=== PATIENT | female | born 1975 | race Caucasian/White ===

== ENCOUNTER 2016-03-27 18:06 | Emergency (ER) | payer SELFPAY ==
[~2016-03-27] VITALS: Ht 160 cm; Wt 70.0 kg
[~2016-03-27 18:06] MED LIST: GLIP5 PO; GLUCTAB PO; TRAM50 PO
[2016-03-27 18:08] VITALS: BP 168/91; PULSE 103; RESP 16; TEMP 98.4; O2SAT 99
--- NOTE | 2016-03-28 13:50 | EKG ---
Date Performed: 03/27/2016 Time Performed: 18:22:35 PTAGE: 40 years EKG: Sinus rhythm NORMAL ECG Compared to prior tracing no significant change PREVIOUS TRACING : 12/19/2015 14.56 DOCTOR: Amina Williamson Interpretating Date/Time 03/28/2016 13:47:40
== END 2016-03-27 18:50 | disposition left against medical advice (07) ==
LOC: NED 18:06
DX: R50.9 Fever, unspecified (principal)
CPT/HCPCS: 93005; 99281

== ENCOUNTER 2016-07-02 18:00 | Inpatient (IN) | payer MEDICAID, OTHER ==
[~2016-07-02] VITALS: Ht 160 cm; Wt 77.4 kg
[2016-07-02 18:02] VITALS: BP 149/77; PULSE 108; RESP 20; TEMP 98.8; O2SAT 99
[2016-07-02] MEDS ORDERED: GLIP5TAB8 PO (18:35)
[2016-07-02] MEDS ORDERED: METF500T PO (18:35)
--- NOTE | 2016-07-02 18:40 | PD ---
HPI Chief Complaint: GI Complaint Time Seen by Provider: 18:40 Travel History International Travel<30 days: No Contact w/Intl Traveler<30days: No Traveled to known affect area: No PFSH Past Medical History Diabetes: Yes Patient Takes Glucophage: No (pt states does not take this med since march) Diminished Hearing: No Tetanus Vaccination: > 5 Years Influenza Vaccination: No ?: Not Past Surgical History Section: Yes (x 3) Cholecystectomy: Yes Social History Alcohol Use: Yes (beers) Tobacco Use: No Substance Use: No Allergies-Medications (Allergen,Severity, Reaction): Coded Allergies: No Known Allergies (Unverified , 07/02/16) Reported Meds & Prescriptions Reported Meds & Active Scripts Active Reported Metformin (Metformin HCl) 500 Mg Tab 500 Mg PO BIDPC With meals Glipizide 5 Mg Tab 5 Mg PO DAILY Take 30 minutes before a meal Data Data Last Documented VS Vital Signs Date Time Temp Pulse Resp B/P Pulse Ox O2 Delivery O2 Flow Rate FiO2 07/02/16 18:35 17 07/02/16 18:02 98.8 108 149/77 99 Room Air Orders Complete Blood Count With Diff (07/02/16 19:16) Comprehensive Metabolic Panel (07/02/16 19:16) Bilirubin Components (07/02/16 19:16) ^ Insert Iv (07/02/16 19:16) Prothrombin Time / Inr (Pt) (07/02/16 19:16) Act Partial Throm Time (Ptt) (07/02/16 19:16) Urinalysis - C+S If Indicated (07/02/16 19:16) Tylenol (Acetaminophen) (07/02/16 19:16) Us Abdomen Liver (07/02/16 ) Morphine Inj (Morphine Inj) (07/02/16 19:30) Ondansetron Inj (Zofran Inj) (07/02/16 19:30) Katie Griffith July 02, 2016 18:40
--- NOTE | 2016-07-02 19:22 | PD ---
HPI Chief Complaint: GI Complaint Time Seen by Provider: 19:03 Travel History International Travel<30 days: No Contact w/Intl Traveler<30days: No Traveled to known affect area: No History of Present Illness HPI This is a 41 year old female who presents to the emergency department with 6 months of fatigue, weakness, nausea, constant, moderate severity, associated with repeated nose bleeds, easy bleeding and bruising, and dark urine. She was seen once in the emergency department in November and it was thought that she has liver disease, but she never followed up because she doesn't have insurance. Her says at one point she was told she may have ITP. She presents to the emergency department today because her is getting more worried about her. She is becoming more weak and is very jaundiced. 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 She does say that for 2 years several years ago she was a very heavy drinker and drank multiple shots of vodka per day. Now she says she drinks occasionally but hasn't drank in 2 weeks. She denies any recent travel out of the country. PFSH Past Medical History Diabetes: Yes Patient Takes Glucophage: No (pt states does not take this med since march) Diminished Hearing: No Medical other: Yes (ITP/ DM ) Tetanus Vaccination: > 5 Years Influenza Vaccination: No ?: Not Past Surgical History Section: Yes (x 3) Cholecystectomy: Yes Social History Alcohol Use: Yes (beers) Tobacco Use: No Substance Use: No Allergies-Medications (Allergen,Severity, Reaction): Coded Allergies: No Known Allergies (Unverified , 07/02/16) Reported Meds & Prescriptions Reported Meds & Active Scripts Active Reported Metformin (Metformin HCl) 500 Mg Tab 500 Mg PO BIDPC With meals Glipizide 5 Mg Tab 5 Mg PO DAILY Take 30 minutes before a meal Review of Systems Except as stated in HPI: all other systems reviewed are Neg Physical Exam Narrative GENERAL: Chronically ill-appearing. SKIN: Spider telangiectasias over the upper chest, back and face, ecchymoses over the bilateral arms and lower extremities at different stages of healing, jaundice HEAD: Atraumatic. Normocephalic. EYES: Pupils equal and round. No injection or drainage. Scleral icterus ENT: Moist mucous membranes NECK: Trachea midline. CARDIOVASCULAR: Regular rate and rhythm. 3/6 systolic murmur appreciated over the left sternal border. RESPIRATORY: Clear to auscultation. Breath sounds equal bilaterally. GASTROINTESTINAL: Liver is palpable 3 cm below the costal margin. MUSCULOSKELETAL: No obvious deformities. NEUROLOGICAL: Awake and alert. No obvious cranial nerve deficits. Moving all extremities. PSYCHIATRIC: Appropriate mood and affect; insight and judgment normal. Data Data Last Documented VS Vital Signs Date Time Temp Pulse Resp B/P Pulse Ox O2 Delivery O2 Flow Rate FiO2 07/02/16 20:34 16 07/02/16 19:31 100 127/71 99 Room Air 07/02/16 18:02 98.8 Orders Complete Blood Count With Diff (07/02/16 19:16) Comprehensive Metabolic Panel (07/02/16 19:16) Bilirubin Components (07/02/16 19:16) ^ Insert Iv (07/02/16 19:16) Prothrombin Time / Inr (Pt) (07/02/16 19:16) Act Partial Throm Time (Ptt) (07/02/16 19:16) Urinalysis - C+S If Indicated (07/02/16 19:16) Tylenol (Acetaminophen) (07/02/16 19:16) Us Abdomen Liver (07/02/16 ) Morphine Inj (Morphine Inj) (07/02/16 19:30) Ondansetron Inj (Zofran Inj) (07/02/16 19:30) Urine Culture (07/02/16 18:40) Ceftriaxone Inj (Rocephin Inj) (07/02/16 20:15) Admit Order (Ed Use Only) (07/02/16 22:23) Labs Laboratory Tests Test 07/02/16 18:40 White Blood Count 5.3 TH/MM3 Red Blood Count 2.70 MIL/MM3 Hemoglobin 8.6 GM/DL Hematocrit 25.9 % Mean Corpuscular Volume 96.2 FL Mean Corpuscular Hemoglobin 32.0 PG Mean Corpuscular Hemoglobin 33.3 % Concent Red Cell Distribution Width 22.3 % Platelet Count 42 TH/MM3 Mean Platelet Volume 8.1 FL Neutrophils (%) (Auto) 76.9 % Lymphocytes (%) (Auto) 15.2 % Monocytes (%) (Auto) 5.7 % Eosinophils (%) (Auto) 1.6 % Basophils (%) (Auto) 0.6 % Neutrophils # (Auto) 4.1 TH/MM3 Lymphocytes # (Auto) 0.8 TH/MM3 Monocytes # (Auto) 0.3 TH/MM3 Eosinophils # (Auto) 0.1 TH/MM3 Basophils # (Auto) 0.0 TH/MM3 CBC Comment AUTO DIFF Differential Comment AUTO DIFF CONFIRMED Platelet Estimate LOW Platelet Morphology Comment NORMAL Target Cells 1+ Prothrombin Time 25.3 SEC Prothromb Time International 2.2 RATIO Ratio Activated Partial 36.5 SEC Thromboplast Time Urine Color DARK-BROWN Urine Turbidity HAZY Urine pH 7.0 Urine Specific [place] 1.022 Urine Protein 30 mg/dL Urine Glucose (UA) NEG mg/dL Urine Ketones NEG mg/dL Urine Occult Blood NEG Urine Nitrite POS Urine Bilirubin LARGE Urine Urobilinogen GREATER THAN 12.0 MG/DL Urine Leukocyte Esterase MOD Urine RBC 1 /hpf Urine WBC 28 /hpf Urine WBC Clumps FEW Urine Squamous Epithelial 1 /hpf Cells Urine Bacteria FEW /hpf Urine Mucus MOD /lpf Microscopic Urinalysis Comment CULTURE INDICATED Sodium Level 138 MEQ/L Potassium Level 3.2 MEQ/L Chloride Level 100 MEQ/L Carbon Dioxide Level 26.8 MEQ/L Anion Gap 11 MEQ/L Blood Urea Nitrogen 2 MG/DL Creatinine 0.76 MG/DL Estimat Glomerular Filtration 85 ML/MIN Rate Random Glucose 123 MG/DL Calcium Level 8.0 MG/DL Total Bilirubin 11.2 MG/DL Direct Bilirubin 8.0 MG/DL Indirect Bilirubin 3.2 MG/DL Aspartate Amino Transf 191 U/L (AST/SGOT) Alanine Aminotransferase 28 U/L (ALT/SGPT) Alkaline Phosphatase 158 U/L Total Protein 7.4 GM/DL Albumin 2.6 GM/DL Acetaminophen Level LESS THAN 2.0 MCG/ML [facility] Medical Decision Making Medical Screen Exam Complete: Yes Emergency Medical Condition: Yes Interpretation(s) Afebrile, tachycardic, hypertensive Anemic Thrombocytopenia Total bilirubin is 11 increased from 2.8 in November Direct bilirubin is elevated INR is 2.2 elevated from 1.4 in November ultrasound: Liver is enlarged to 20 cm suspected hepatocellular disease. Splenomegaly. Differential Diagnosis alcoholic cirrhosis, viral hepatitis, malignancy, toxic hepatitis Narrative Course This is a 41-year-old female who presents to the emergency department with worsening jaundice, weakness, and vomiting. She does have a remote history of heavy alcohol use. She was placed on a monitor and an IV was established. Labs indicate worsening jaundice with a total bilirubin of 11 increased from 2 in November. Her INR is also worsening. We don't have a definitive etiology of the patient's liver failure. I spoke to Dr. Packer or and we discussed outpatient versus inpatient management. The patient has very limited resources and given her age it is reasonable to evaluate her in the hospital. She'll be placed in observation for GI evaluation. Ultrasound of the liver demonstrates likely hepatocellular disease. Physician Communication Physician Communication Discussed with Dr. Packer and Dr. Peoples Diagnosis Primary Impression: Liver failure Qualified Code: K72.10 - Chronic liver failure without hepatic coma Admitting Information Admitting Physician Requests: Observation Charley Perez MD July 02, 2016 19:22
[2016-07-02] MEDS ORDERED: ONDANSETRON HCL 4 MG/2 ML VIAL IV PUSH ONE (19:30)
[2016-07-02] MEDS ORDERED: MORPHINE SULFATE 4 MG/ML INJ IV PUSH ONE ×2 (19:30→22:45)
[2016-07-02 19:31] VITALS: BP 127/71; PULSE 100; RESP 16; O2SAT 99
[2016-07-02 19:56] LABS: AUTOMATED NEUTROPHIL # 4.1 TH/MM3 (1.8-7.7); BASOPHIL % 0.6 % (0.0-2.0); EOSINOPHIL # 0.1 TH/MM3 (0-0.4); EOSINOPHIL % 1.6 % (0.0-4.0); HEMATOCRIT 25.9 % (35.0-46.0); LYMPH % 15.2 % (9.0-44.0); LYMPHOCYTE # 0.8 TH/MM3 (1.0-4.8); MEAN CELL VOLUME 96.2 FL (80.0-100.0); MEAN CORPUSCULAR HGB CONC 33.3 % (32.0-36.0); MONO % 5.7 % (0.0-8.0); NEUT % 76.9 % (16.0-70.0); PLATELET COUNT 42 TH/MM3 (150-450); RED CELL DISTRIBUTION WIDTH 22.3 % (11.6-17.2); WHITE BLOOD COUNT 5.3 TH/MM3 (4.0-11.0)
[2016-07-02 19:58] LABS: HEMO FLAGS AUTO DIFF
[2016-07-02 19:59] LABS: BACTERIA, URINE FEW /hpf; BLOOD, URINE NEG (NEG); COMMENT (UR) CULTURE INDICATED; CULTURE IF INDICATED CULTURE INDICATED; GLUCOSE,URINE NEG (NEG); KETONE, URINE NEG (NEG); MUCUS URINE MOD /lpf (OCC); SQUAMOUS EPITHELIAL CELL URINE 1 /hpf (0-5)
[2016-07-02 20:01] LABS: NITRITE,URINE POS (NEG); URINE COLOR DARK-BROWN (YELLW/STRAW)
[2016-07-02 20:07] LABS: APTT (PATIENT) 36.5 SEC (24.3-30.1); INTERNATIONAL NORMALIZED RATIO 2.2 RATIO; PROTHROMBIN TIME - PATIENT 25.3 SEC (9.8-11.6)
[2016-07-02] MEDS ORDERED: cefTRIAXone INJ 1,000 MG in SODIUM CHLORIDE 0.9% INJ 100 ML IV ONE (20:15)
[2016-07-02 20:17] LABS: ANION GAP 11 MEQ/L (5-15); AST (GOT) 191 U/L (15-37); BICARBONATE 26.8 MEQ/L (21.0-32.0); BLOOD UREA NITROGEN 2 MG/DL (7-18); CHLORIDE 100 MEQ/L (98-107); GLOMERULAR FILTRATION RATE 85 ML/MIN (>89); POTASSIUM 3.2 MEQ/L (3.5-5.1); SODIUM (NA) 138 MEQ/L (136-145)
[2016-07-02 20:20] LABS: ALKALINE PHOSPHATASE 158 U/L (45-117); ALT (GPT) 28 U/L (10-53); INDIRECT BILIRUBIN 3.2 MG/DL (0.0-0.8); TOTAL BILIRUBIN ADULT 11.2 MG/DL (0.2-1.0)
[2016-07-02 20:24] LABS: TARGET CELLS 1+ (NORMAL)
[2016-07-02 20:25] LABS: PLATELET ESTIMATE SMEAR LOW (NORMAL); PLATELET MORPHOLOGY NORMAL (NORMAL); SCAN/DIFF AUTO DIFF CONFIRMED
[2016-07-02 20:53] LABS: ACETAMINOPHEN LESS THAN 2.0 MCG/ML (10.0-30.0)
--- NOTE | 2016-07-02 21:56 | RADRPT ---
EXAM DATE/TIME: 07/02/2016 20:42 [facility] COMPARISON: No previous studies available for comparison. INDICATIONS : Jaundice. MEDICAL HISTORY : . Diabetes. Jaundice. Fatigue. Liver disease. Splenomegaly. SURGICAL HISTORY : Cholecystectomy. section. Appendectomy. Exploratory laparotomy. ENCOUNTER: Initial ACUITY: 2 months PAIN SCORE: 2/10 LOCATION: Abdomen. MEASUREMENTS: LIVER: 19.9 cm length COMMON DUCT: 5 mm RIGHT KIDNEY: 13.0 x 5.7 x 5.3 cm SPLEEN: 18.6 cm length FINDINGS: Liver is enlarged to about 20 cm heterogeneous echogenicity characteristic of hepatocellular disease. Previous cholecystectomy. No biliary ductal dilatation. Portal venous flow normal direction. 2.8 cm right renal cyst. Spleen enlarged at 18.6 cm. CONCLUSION: Liver enlarged to 20 cm with suspected hepatocellular disease. Splenomegaly to 18.6 cm. No free fluid . Cholecystectomy. Cliff Montez MD on July 02, 2016 at 21:51 Board Certified Radiologist. This report was verified electronically.
[2016-07-02 22:29] VITALS: BP 122/63; PULSE 100; RESP 16; TEMP 98.5; O2SAT 97
[2016-07-02] MEDS ORDERED: NALOXONE HCL 0.4 MG/ML AMP IV PRN (22:30)
[2016-07-03] VITALS (8 sets, daily range): BP systolic 110–128; BP diastolic 56–66; PULSE 98–110; RESP 15–19; TEMP 97–98.8; O2SAT 93–98
--- NOTE | 2016-07-03 00:14 | HHI.HP ---
[facility] No Primary Care Physician Admission Diagnosis liver failure Diagnoses: Travel History International Travel<30 Days: No Contact w/Intl Traveler <30 Da: No Traveled to Known Affected Are: No History of Present Illness History from patient, ER physician communication, and review of medical records. Patient reported that for the past 4 days, she has been vomiting. Stated about 2-3 times a day. Also reports of associated right upper quadrant abdominal pain. She stated she did not check for fever but felt hot and red all throughout. Reports of nausea. Denies any black color stool or red color stool. Denies blood in her urine. She reports her urine color is however quite different and has been having foul- smelling urine. She states that her who drives trucks was away for about 3 weeks and yesterday when he came back home and he noticed that she was extremely jaundiced. He finally decided to bring her to hospital because he was so worried that she would pass away at home. She states she has impaired vision secondary to diabetes and she herself did not really notice being jaundiced. She states other family members who were with her also did not mention much about it. She also reports of nosebleeds in the past few weeks. Reports of easy bruising all over her body. She states that her nausea and vomiting episodes with abdominal pain has been going on and off for the past several months ago. She states that in her previous admission she was told that she might have signs and symptoms of ITP because of easy bruising. She states she has had cholecystectomy then. gallbladder removed platelets were low then egd then- could not do then due to platelets spleen was enlarged Patient states that although she is diabetic, she is not on any prescribed medications currently. She states she was switching her insurance from [employer] insurance to here. She previously was on metformin and glipizide. Currently, she takes the following medications [id number]. Tylenol2 pills twice a day. She does not know the milligrams. no prescribed meds- was switching from [employer] insurance to here was on metformin and glipizide over the counter- tylenol- 2 pills twice a day 2 calcium pills - all natural pill from [employer] vitamin b12 - 2 water pills- over the counter, all natural antacid medicine - lansoprazole Review of Systems Except as stated in HPI: all other systems reviewed are Neg Past Family Social History Past Medical History dm kidney stones removed Past Surgical History 3 c sections exploratory sx - appendectomy cholecystectomy egd bile duct stent placed post cholecystectomy- but since removed Allergies: Coded Allergies: No Known Allergies (Unverified , 07/02/16) Family History dm, htn - all females mom with heart problems Social History used to drink hard liquor about 3-4 shots every day - stopped hard liquor few months ago on and off abotu 2-3 yrs for hard liquor now only beer once in a while no iv drugs no smoking Physical Exam Vital Signs Vital Signs Date Time Temp Pulse Resp B/P Pulse Ox O2 Delivery O2 Flow Rate FiO2 07/02/16 22:29 98.5 100 16 122/63 97 Room Air 07/02/16 20:34 16 07/02/16 19:31 100 16 127/71 99 Room Air 07/02/16 18:35 17 07/02/16 18:02 98.8 108 20 149/77 99 Room Air Physical Exam GENERAL: This is a well-nourished, well-developed patient, in no apparent distress. SKIN: Jaundiced. Multiple superficial ecchymoses HEAD: Atraumatic. Normocephalic. No temporal or scalp tenderness. EYES: Scleral icterus. No injection or drainage. ENT: Nose without bleeding, purulent drainage or septal hematoma.. Airway patent. NECK: Trachea midline. No JVD. Supple, nontender, no meningeal signs. CARDIOVASCULAR: Regular rate and rhythm without murmurs, gallops, or rubs. RESPIRATORY: Clear to auscultation. Breath sounds equal bilaterally. No wheezes , rales, or rhonchi. GASTROINTESTINAL: Abdomen soft, non-tender, nondistended.No guarding. Hepatomegalywith liver edge palpable MUSCULOSKELETAL: Extremities without clubbing, cyanosis, or edema. No calf tenderness NEUROLOGICAL: Awake and alert.Motor and sensory grossly within normal limits. Normal speech. Laboratory Laboratory Tests Test 07/02/16 18:40 White Blood Count 5.3 Red Blood Count 2.70 Hemoglobin 8.6 Hematocrit 25.9 Mean Corpuscular Volume 96.2 Mean Corpuscular Hemoglobin 32.0 Mean Corpuscular Hemoglobin 33.3 Concent Red Cell Distribution Width 22.3 Platelet Count 42 Mean Platelet Volume 8.1 Neutrophils (%) (Auto) 76.9 Lymphocytes (%) (Auto) 15.2 Monocytes (%) (Auto) 5.7 Eosinophils (%) (Auto) 1.6 Basophils (%) (Auto) 0.6 Neutrophils # (Auto) 4.1 Lymphocytes # (Auto) 0.8 Monocytes # (Auto) 0.3 Eosinophils # (Auto) 0.1 Basophils # (Auto) 0.0 CBC Comment AUTO DIFF Differential Comment AUTO DIFF CONFIRMED Platelet Estimate LOW Platelet Morphology Comment NORMAL Target Cells 1+ Prothrombin Time 25.3 Prothromb Time International 2.2 Ratio Activated Partial 36.5 Thromboplast Time Urine Color DARK-BROWN Urine Turbidity HAZY Urine pH 7.0 Urine Specific [place] 1.022 Urine Protein 30 Urine Glucose (UA) NEG Urine Ketones NEG Urine Occult Blood NEG Urine Nitrite POS Urine Bilirubin LARGE Urine Urobilinogen GREATER THAN 12.0 Urine Leukocyte Esterase MOD Urine RBC 1 Urine WBC 28 Urine WBC Clumps FEW Urine Squamous Epithelial 1 Cells Urine Bacteria FEW Urine Mucus MOD Microscopic Urinalysis Comment CULTURE INDICATED Sodium Level 138 Potassium Level 3.2 Chloride Level 100 Carbon Dioxide Level 26.8 Anion Gap 11 Blood Urea Nitrogen 2 Creatinine 0.76 Estimat Glomerular Filtration 85 Rate Random Glucose 123 Calcium Level 8.0 Total Bilirubin 11.2 Direct Bilirubin 8.0 Indirect Bilirubin 3.2 Aspartate Amino Transf 191 (AST/SGOT) Alanine Aminotransferase 28 (ALT/SGPT) Alkaline Phosphatase 158 Total Protein 7.4 Albumin 2.6 Acetaminophen Level LESS THAN 2.0 Date/Time Procedure Status Source Growth 07/02/16 18:40 Urine Culture Received Urine Clean Catch Pending Result Diagram: 07/02/16 1840 07/02/16 1840 Imaging Last 48 hours Impressions Liver Ultrasound 07/02/16 0000 Signed Impressions: Service Date/Time: Saturday, July 02, 2016 20:42 - CONCLUSION: Liver enlarged to 20 cm with suspected hepatocellular disease. Splenomegaly to 18.6 cm. No free fluid. Cholecystectomy. Cliff Montez MD Assessment and Plan Problem List: (1) Liver failure ICD Code: K72.90 Status: Acute Assessment and Plan Impression: Acute on chronic liver failure UTI INR of 2.2secondary to liver failure Thrombocytopenia Prior history of EtOH abuse Current history of [id number] supplements medications and Tylenol Plan: GI consult. Liver ultrasound was obtained. Personally reviewed. No evidence of CBD stone or obstructive pathology. We'll start patient on vitamin K for INR of 2.2 Patient received Rocephin in the ER for treatment of UTI. We'll follow urine culture results. For now, would continue Rocephin. DVT prophylaxiswith ambulation/SCD. Chemical prophylaxis is contraindicated since patient has INR 2.2 with acute liver failure. GI prophylaxis on pantoprazole. Discussed Condition With Patient, ER physician, patient's nurse Problem Qualifiers (1) Liver failure: Qualified Code: K72.10 - Chronic liver failure without hepatic coma Bailey Peoples MD July 03, 2016 00:14
[2016-07-03] MEDS ORDERED: MORPHINE SULFATE 4 MG/ML INJ IV PUSH PRN ×2 (01:45→08:00)
[2016-07-03 07:08] LABS: HEMATOCRIT 22.9 % (35.0-46.0); MEAN CELL VOLUME 97.6 FL (80.0-100.0); MEAN CORPUSCULAR HEMOGLOBIN 31.6 PG (27.0-34.0); MEAN CORPUSCULAR HGB CONC 32.4 % (32.0-36.0); PLATELET COUNT 33 TH/MM3 (150-450); RED BLOOD COUNT 2.35 MIL/MM3 (4.00-5.30); RED CELL DISTRIBUTION WIDTH 22.6 % (11.6-17.2); WHITE BLOOD COUNT 3.8 TH/MM3 (4.0-11.0)
[2016-07-03 07:20] LABS: HEMO FLAGS AUTO DIFF
[2016-07-03 07:26] LABS: ALT (GPT) 26 U/L (10-53); ANION GAP 10 MEQ/L (5-15); AST (GOT) 169 U/L (15-37); BICARBONATE 28.3 MEQ/L (21.0-32.0); BLOOD UREA NITROGEN 3 MG/DL (7-18); CHLORIDE 101 MEQ/L (98-107); GLOMERULAR FILTRATION RATE 95 ML/MIN (>89); POTASSIUM 3.4 MEQ/L (3.5-5.1); SODIUM (NA) 139 MEQ/L (136-145)
[2016-07-03 07:28] LABS: ALKALINE PHOSPHATASE 143 U/L (45-117); TOTAL BILIRUBIN ADULT 9.9 MG/DL (0.2-1.0)
[2016-07-03 07:57] LABS: BANDS 11 % (0-6); BASOPHILS 1 % (0-2); PLATELET ESTIMATE SMEAR LOW (NORMAL); PLATELET MORPHOLOGY NORMAL (NORMAL); POLYS (SEG NEUTROPHILS) 68 % (16-70); SCAN/DIFF FINAL DIFF MANUAL; WBC DIFF SAMPLE 100
[2016-07-03 07:58] LABS: TARGET CELLS 1+ (NORMAL)
[2016-07-03] MEDS: PANTOPRAZOLE SOD 40 MG DELAYED RELEASE TAB PO SCH (08:43)
[2016-07-03] MEDS: SODIUM CHLORIDE 0.9% FLUSH 10 ML FLUSH IV FLUSH SCH ×2 (08:43→21:11)
[2016-07-03] MEDS: PHYTONADIONE 5 MG TAB PO SCH (08:44)
[2016-07-03] MEDS: cefTRIAXone INJ 1,000 MG in SODIUM CHLORIDE 0.9% INJ 100 ML IV SCH ×2 (08:44→21:11)
[2016-07-03] MEDS: ONDANSETRON HCL 4 MG/2 ML VIAL IV PUSH PRN ×2 (09:30→18:18)
--- NOTE | 2016-07-03 12:12 | PD.CONS ---
HPI History of Present Illness This is a 41 year old female who came to the ER for evaluation of nausea, vomiting and jaundice. She reports that she has not been able to keep any food down for about a week. She has appetite and when she does eat, she will vomit a brownish or yellowish material, but no blood. She has RUQ that she describes as a constant throbbing pain that progresses to a sharp stabbing pain without radiation. She does not feel that this is related to food intake. She feels like her skin gets flushed when she has the pain, but that she has not had an actual fever. She does have a hx peptic ulcer disease (found with endoscopy) and takes Lansoprazole at home for this and is asymptomatic. She reports that she was told about a year and a half ago that she have has not had any issues with this. She has had diarrhea for the past 3-4 weeks, usually having 2 loose stools per day. She has not seen any blood in her stool. She reports that she did not notice that her skin was jaundiced, but her noticed this yesterday and this prompted her to come to the ER. 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 She was never told that she had liver disease. She reports that she used to drink heavily- 5-6 shots of Vodka per day. She reports that she cut back about 6 months ago, drinking 2-3 beers a week. She last had alcohol 1 beer 3 days ago. She denies any history of hepatitis. She has a hx of tatto from a parlor 17 years ago. She denies any new medications, herbal supplements, or new sexual partners. She does take a B12 supplement. She does take Tylenol 4 tablets twice a day for chronic back pain related to a herniated disc. Sometimes she will take Ibuprofen. (Ela Juarez) PFSH Past Medical History DM PUD Hx bile leak after cholecystectomy Kidney stones Low platelets Past Surgical History 3 C-sections Appendectomy Cholecystectomy EGD ERCP with stent placement and later removal for bile leak (Ela Juarez) Coded Allergies: No Known Allergies (Unverified , 07/02/16) Medications Allergies Coded Allergies Type Severity Reaction Last Updated Verified No Known Allergies 07/02/16 No Active Scripts Medications Dose Route/Sig Days Date Category Dose Instructions Metformin (Metformin HCl) 500 Mg Tab 500 Mg PO BIDPC 07/02/16 Reported With meals Glipizide 5 Mg Tab 5 Mg PO DAILY 07/02/16 Reported Take 30 minutes before a meal Family History Mom has heart disease No family hx of liver disease. Social History Used to drink heavily- 5-6 shots of Vodka per day. She reports that she cut back about 6 months ago, drinking 2-3 beers a week. No tobacco No illicit drug use. (Ela Juarez) GI Exam Vitals I&O Vital Signs Date Time Temp Pulse Resp B/P Pulse Ox O2 Delivery O2 Flow Rate FiO2 07/03/16 11:51 109 07/03/16 08:15 98.5 105 18 122/61 95 07/03/16 04:40 98.6 110 18 118/56 93 07/03/16 01:30 106 07/03/16 01:15 97.0 98 15 110/59 95 07/02/16 22:29 98.5 100 16 122/63 97 Room Air 07/02/16 20:34 16 07/02/16 19:31 100 16 127/71 99 Room Air 07/02/16 18:35 17 07/02/16 18:02 98.8 108 20 149/77 99 Room Air Imaging Last Impressions Liver Ultrasound 07/02/16 0000 Signed Impressions: Service Date/Time: Saturday, July 02, 2016 20:42 - CONCLUSION: Liver enlarged to 20 cm with suspected hepatocellular disease. Splenomegaly to 18.6 cm. No free fluid. Cholecystectomy. Cliff Montez MD Laboratory Test 07/02/16 07/03/16 18:40 06:36 White Blood Count 5.3 TH/MM3 3.8 TH/MM3 Red Blood Count 2.70 MIL/MM3 2.35 MIL/MM3 Hemoglobin 8.6 GM/DL 7.4 GM/DL Hematocrit 25.9 % 22.9 % Mean Corpuscular Volume 96.2 FL 97.6 FL Mean Corpuscular Hemoglobin 32.0 PG 31.6 PG Mean Corpuscular Hemoglobin 33.3 % 32.4 % Concent Red Cell Distribution Width 22.3 % 22.6 % Platelet Count 42 TH/MM3 33 TH/MM3 Mean Platelet Volume 8.1 FL 7.6 FL Neutrophils (%) (Auto) 76.9 % % Lymphocytes (%) (Auto) 15.2 % % Monocytes (%) (Auto) 5.7 % % Eosinophils (%) (Auto) 1.6 % % Basophils (%) (Auto) 0.6 % % Neutrophils # (Auto) 4.1 TH/MM3 TH/MM3 Lymphocytes # (Auto) 0.8 TH/MM3 TH/MM3 Monocytes # (Auto) 0.3 TH/MM3 TH/MM3 Eosinophils # (Auto) 0.1 TH/MM3 TH/MM3 Basophils # (Auto) 0.0 TH/MM3 TH/MM3 CBC Comment AUTO DIFF AUTO DIFF Differential Comment AUTO DIFF FINAL DIFF CONFIRMED MANUAL Platelet Estimate LOW LOW Platelet Morphology Comment NORMAL NORMAL Target Cells 1+ 1+ Prothrombin Time 25.3 SEC Prothromb Time International 2.2 RATIO Ratio Activated Partial 36.5 SEC Thromboplast Time Urine Color DARK-BROWN Urine Turbidity HAZY Urine pH 7.0 Urine Specific [place] 1.022 Urine Protein 30 mg/dL Urine Glucose (UA) NEG mg/dL Urine Ketones NEG mg/dL Urine Occult Blood NEG Urine Nitrite POS Urine Bilirubin LARGE Urine Urobilinogen GREATER THAN 12.0 MG/DL Urine Leukocyte Esterase MOD Urine RBC 1 /hpf Urine WBC 28 /hpf Urine WBC Clumps FEW Urine Squamous Epithelial 1 /hpf Cells Urine Bacteria FEW /hpf Urine Mucus MOD /lpf Microscopic Urinalysis Comment CULTURE INDICATED Sodium Level 138 MEQ/L 139 MEQ/L Potassium Level 3.2 MEQ/L 3.4 MEQ/L Chloride Level 100 MEQ/L 101 MEQ/L Carbon Dioxide Level 26.8 MEQ/L 28.3 MEQ/L Anion Gap 11 MEQ/L 10 MEQ/L Blood Urea Nitrogen 2 MG/DL 3 MG/DL Creatinine 0.76 MG/DL 0.69 MG/DL Estimat Glomerular Filtration 85 ML/MIN 95 ML/MIN Rate Random Glucose 123 MG/DL 137 MG/DL Calcium Level 8.0 MG/DL 7.8 MG/DL Total Bilirubin 11.2 MG/DL 9.9 MG/DL Direct Bilirubin 8.0 MG/DL Indirect Bilirubin 3.2 MG/DL Aspartate Amino Transf 191 U/L 169 U/L (AST/SGOT) Alanine Aminotransferase 28 U/L 26 U/L (ALT/SGPT) Alkaline Phosphatase 158 U/L 143 U/L Total Protein 7.4 GM/DL 6.4 GM/DL Albumin 2.6 GM/DL 2.2 GM/DL Acetaminophen Level LESS THAN 2.0 MCG/ML Differential Total Cells 100 Counted Neutrophils % (Manual) 68 % Band Neutrophils % 11 % Lymphocytes % 15 % Monocytes % 5 % Basophils % 1 % Neutrophils # (Manual) 3.0 TH/MM3 Date/Time Procedure Status Source Growth 07/02/16 18:40 Urine Culture Received Urine Clean Catch Pending Physical Examination HEENT: Normocephalic; atraumatic; no jaundice. CHEST: CTA CARDIAC: Regular rate and rhythm with no murmur gallop or rubs. ABDOMEN: Soft, nondistended, nontender; hepatosplenomegaly; bowel sounds are present in all four quadrants. EXTREMITIES: No clubbing, cyanosis, or edema. SKIN: Normal; no rash; no jaundice. EQUINE VET: No focal deficits; alert and oriented times three. (Ela Juarez) Assessment and Plan Plan ASSESSMENT: - Elevated LFTs, Jaundice, what appears to be consistent with alcoholic hepatitis on underlying liver cirrhosis. She denies any known hx of liver disease or hepatitis/cirrhosis. 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 Liver Ultrasound (07/02/16)----> Liver enlarged to 20 cm with suspected hepatocellular disease. Splenomegaly to 18.6 cm. No free fluid. Cholecystectomy. She reports that she was a heavy drinker, 5-6 shots of Vodka per day. She reports that she cut back about 6 months ago, drinking 2-3 beers a week. She reports that she last had one beer 3 days ago. She denies any known liver disease in herself or family. She has a hx of tatto from a parlor 17 years ago. She denies any new medications, herbal supplements, or new sexual partners. She does take a B12 supplement. Her labs and imaging are consistent with liver cirrhosis. MELD 20. DF 71.080. Looks like she has UTI so we will start Pentoxifylline instead of prednisone. - Nausea, vomiting, abdominal pain x 1 week. She has hx of PUD. No hematemesis. Last EGD was about a year and a half ago. US as above. Will need EGD during this hospitalization- timing to be determined - GERD. PPI. - Pancytopenia. WBC 3.8, HH 7.4/22.9, Plt 33. - Coagulopathy. INR 2.2. - UTI, Ceftriaxone. PLAN: - Clear liquids - AFP level - Hepatitis profile - VERÓNICA, ASMA, AMA - Ferritin, Iron saturation - Ceruloplasmin, Alpha 1 Antitrypsin - Protonix 40mg daily - Add Pentoxifylline - On Vit. K - Monitor CBC, PT/INR. - Ammonia level - Ceftriaxone for uti - Supportive care - Will need EGD during this hospitalization, timing to be determined - Pt seen and examined by Dr. Steel and myself and this note is written on her behalf (Ela Juarez) Physician Comments seen, examined agree with above (Jenn Steel MD) Ela Juarez July 03, 2016 12:12 Jenn Steel MD July 03, 2016 19:22
--- NOTE | 2016-07-03 13:12 | HHI.PR ---
Subjective Remarks Follow up for acute liver failure. The patient reports continued 8/10 throbbing with occasional sharp stabbing pains at the RUQ without radiation, temporarily relieved by IV Morphine. She also reports continued nausea, temporarily relieved by IV Zofran. She was only able to tolerate 1 cracker this morning then vomited shortly after. Denies any diarrhea, but has not had a BM in 2 days. Denies fevers/chills. She reports rare NSAID use, but does take Tylenol 4tabs twice a day for her back pain. She continues to drink 2-3 beers a week. Objective Vitals Vital Signs Date Time Temp Pulse Resp B/P Pulse Ox O2 Delivery O2 Flow Rate FiO2 07/03/16 12:17 98.8 103 19 122/66 96 07/03/16 11:51 109 07/03/16 08:15 98.5 105 18 122/61 95 07/03/16 04:40 98.6 110 18 118/56 93 07/03/16 01:30 106 07/03/16 01:15 97.0 98 15 110/59 95 07/02/16 22:29 98.5 100 16 122/63 97 Room Air 07/02/16 20:34 16 07/02/16 19:31 100 16 127/71 99 Room Air 07/02/16 18:35 17 07/02/16 18:02 98.8 108 20 149/77 99 Room Air Result Diagram: 07/03/16 0636 07/03/16 0636 Imaging Last Impressions Liver Ultrasound 07/02/16 0000 Signed Impressions: Service Date/Time: Saturday, July 02, 2016 20:42 - CONCLUSION: Liver enlarged to 20 cm with suspected hepatocellular disease. Splenomegaly to 18.6 cm. No free fluid. Cholecystectomy. Cliff Montez MD Objective Remarks GENERAL: Well-nourished, well-developed middle aged female patient in [employer]. SKIN: Warm and dry. No rash. HEENT: Normocephalic. Atraumatic. Pupils equal and round. +scleral icterus. Mucous membranes pink and moist. NECK: Supple. Trachea midline. CARDIOVASCULAR: Regular rate and rhythm. S1, S2 noted. No murmur appreciated. RESPIRATORY: No accessory muscle use. Clear to auscultation. Breath sounds equal bilaterally. GASTROINTESTINAL: Abdomen soft, nondistended, significant tenderness at RUQ with light palpation. Normoactive bowel sounds x4. MUSCULOSKELETAL: No obvious deformities. Extremities without clubbing, cyanosis , or edema. NEUROLOGICAL: Awake and alert. No obvious cranial nerve deficits. Motor grossly within normal limits. Normal speech. PSYCHIATRIC: Appropriate mood and affect; insight and judgment normal. Medications and IVs Current Medications Medications (Trade) Dose Ordered Sig/Ric Route Start Time Stop Time Status Last Admin (NS Flush) 2 ml UNSCH PRN IV FLUSH 07/02/16 22:30 (NS Flush) 2 ml BID IV FLUSH 07/03/16 09:00 07/03/16 08:43 Naloxone HCl 0.4 mg 0.4 mg UNSCH PRN IV 07/02/16 22:30 (Rocephin Inj/NS Inj) 100 ml @ 200 mls/hr Q12H IV 07/03/16 08:00 07/03/16 08:44 (Mephyton) 5 mg DAILY PO 07/03/16 09:00 07/03/16 08:44 (Protonix) 40 mg DAILY@06 PO 07/03/16 07:04 07/03/16 08:43 (Morphine Inj) 2 mg Q4HR PRN IV PUSH 07/03/16 08:00 07/03/16 08:43 (Zofran Inj) 4 mg Q6HR PRN IV PUSH 07/03/16 09:15 07/03/16 09:30 (TRENtal SR) 400 mg Q8HR PO 07/03/16 14:00 A/P Problem List: (1) Liver failure ICD Code: K72.90 Status: Acute Assessment and Plan 41-year-old female with history of DM, PUD, nephrolithiasis, thrombocytopenia, prior alcohol abuse, presents with abdominal pain, nausea/vomiting, and jaundice. Acute on chronic liver failure: Elevated LFTs with T.bili 11.2, AST 191, ALT 28 , Alk Phos 158. Liver U/S 07/02 showed liver enlarged to 20cm with suspected hepatocellular disease; splenomegaly 18.6cm; no free fluid, s/p cholecystectomy ; No evidence of CBD stone or obstructive pathology. Consulted gastroenterology. Check AFP. GI initiated liver work up. Continue Protonix 40mg qd. Supportive treatment with antiemetics and pain control prn. Per GI, will also need EGD during this hospitalization. Consider inpatient admission, will discuss with case management. UTI: UA with mod leuks, +nitrites, WBCs. Continue IV Rocephin. Follow urine culture. Elevated INR: INR 2.2secondary to liver failure. Monitor. Normocytic Anemia: Hgb 8.6 --> 7.4. Suspect secondary to liver failure. Check iron studies, ferritin. Check stool Hemoccult. Monitor CBC. Thrombocytopenia: secondary to liver failure/alcohol abuse. Monitor. Avoid antiplatelets. Prior history of EtOH abuse: reported hx of heavy alcohol abuse, now down to 2- 3beers per week. DVT prophylaxis: with ambulation/SCD. Avoid chemical prophylaxis with liver failure, platelets 33K, and INR 2.2. GI prophylaxis: pantoprazole Attending Statement Patient seen and examined. Still having abdominal pain. Tender in RUQ. Liver workup per GI. Problem Qualifiers (1) Liver failure: Qualified Code: K72.10 - Chronic liver failure without hepatic coma Arlene Hooks PA-C July 03, 2016 13:12 Beto Chong MD July 03, 2016 14:07
[2016-07-03] MEDS: PENTOXIFYLLINE 400 MG CONTROLLED RELEASE TAB PO SCH ×2 (13:15→21:10)
[2016-07-03] MEDS: SODIUM CHLORIDE 0.9% FLUSH 10 ML FLUSH IV FLUSH PRN ×3 (13:16→18:18)
[2016-07-03] MEDS: METOCLOPRAMIDE HCL 10 MG/2 ML VIAL IV PUSH PRN (13:16)
[2016-07-03] MEDS: MORPHINE SULFATE 4 MG/ML INJ IV PUSH PRN ×3 (13:50→21:19)
[2016-07-03 14:49] LABS: TRANSFERRIN IRON PROFILE 137 MG/DL (200-360)
[2016-07-03 14:52] LABS: FERRITIN 45 NG/ML (8-252)
[2016-07-03] MEDS ORDERED: GLUCAGON 1 MG/ML VIAL OTHER PRN (18:30)
[2016-07-03] MEDS ORDERED: DEXTROSE 50% IN WATER 50 ML VIAL(D50) IV PUSH PRN (18:30)
[2016-07-03] MEDS: INSULIN ASPART SUPPLEMENTAL SCALE SQ SCH (20:42)
[2016-07-03 21:35] LABS: HEMATOCRIT 23.5 % (35.0-46.0)
[2016-07-03 21:37] LABS: REVIEW FLAG FINAL
[2016-07-04] VITALS (9 sets, daily range): BP systolic 107–135; BP diastolic 55–68; PULSE 91–106; RESP 18–20; TEMP 98.4–99; O2SAT 96–100
[2016-07-04] MEDS: ONDANSETRON HCL 4 MG/2 ML VIAL IV PUSH PRN ×3 (00:24→16:06)
[2016-07-04] MEDS: MORPHINE SULFATE 4 MG/ML INJ IV PUSH PRN ×2 (00:24→07:44)
[2016-07-04] MEDS: PANTOPRAZOLE SOD 40 MG DELAYED RELEASE TAB PO SCH (05:20)
[2016-07-04] MEDS: PENTOXIFYLLINE 400 MG CONTROLLED RELEASE TAB PO SCH ×3 (05:20→21:59)
[2016-07-04] MEDS: INSULIN ASPART SUPPLEMENTAL SCALE SQ SCH ×4 (06:01→21:00)
[2016-07-04 07:09] LABS: AUTOMATED NEUTROPHIL # 3.4 TH/MM3 (1.8-7.7); BASOPHIL % 0.3 % (0.0-2.0); EOSINOPHIL # 0.1 TH/MM3 (0-0.4); EOSINOPHIL % 1.4 % (0.0-4.0); HEMATOCRIT 23.1 % (35.0-46.0); LYMPH % 11.8 % (9.0-44.0); LYMPHOCYTE # 0.5 TH/MM3 (1.0-4.8); MEAN CELL VOLUME 96.6 FL (80.0-100.0); MEAN CORPUSCULAR HEMOGLOBIN 33.5 PG (27.0-34.0); MEAN CORPUSCULAR HGB CONC 34.7 % (32.0-36.0); MONO % 6.5 % (0.0-8.0); PLATELET COUNT 37 TH/MM3 (150-450); RED BLOOD COUNT 2.39 MIL/MM3 (4.00-5.30); RED CELL DISTRIBUTION WIDTH 22.6 % (11.6-17.2); WHITE BLOOD COUNT 4.3 TH/MM3 (4.0-11.0)
[2016-07-04 07:19] LABS: INTERNATIONAL NORMALIZED RATIO 2.8 RATIO; PROTHROMBIN TIME - PATIENT 32.1 SEC (9.8-11.6)
[2016-07-04 07:23] LABS: HEMO FLAGS AUTO DIFF
[2016-07-04 07:43] LABS: ALT (GPT) 24 U/L (10-53); ANION GAP 9 MEQ/L (5-15); AST (GOT) 138 U/L (15-37); BICARBONATE 28.9 MEQ/L (21.0-32.0); BLOOD UREA NITROGEN 5 MG/DL (7-18); CHLORIDE 102 MEQ/L (98-107); GLOMERULAR FILTRATION RATE 105 ML/MIN (>89); POTASSIUM 3.2 MEQ/L (3.5-5.1); SODIUM (NA) 140 MEQ/L (136-145)
[2016-07-04] MEDS: cefTRIAXone INJ 1,000 MG in SODIUM CHLORIDE 0.9% INJ 100 ML IV SCH ×2 (07:44→20:19)
[2016-07-04] MEDS: SODIUM CHLORIDE 0.9% FLUSH 10 ML FLUSH IV FLUSH PRN ×3 (07:44→16:07)
[2016-07-04 07:45] LABS: ALKALINE PHOSPHATASE 143 U/L (45-117); TOTAL BILIRUBIN ADULT 12.5 MG/DL (0.2-1.0)
[2016-07-04 08:18] LABS: PLATELET ESTIMATE SMEAR LOW (NORMAL); PLATELET MORPHOLOGY NORMAL (NORMAL); SCAN/DIFF AUTO DIFF CONFIRMED; TARGET CELLS 1+ (NORMAL)
[2016-07-04] MEDS: PHYTONADIONE 5 MG TAB PO SCH (09:23)
[2016-07-04] MEDS: SODIUM CHLORIDE 0.9% FLUSH 10 ML FLUSH IV FLUSH SCH ×2 (09:23→20:19)
[2016-07-04] MEDS ORDERED: POTASSIUM CHLORIDE 20 MEQ CONTROLLED RELEASE TAB PO ONE (10:45)
--- NOTE | 2016-07-04 10:57 | HHI.PR ---
Subjective Remarks Follow up for acute liver failure, abdominal pain, nausea/vomiting. The patient reports continue RUQ abdominal pain and nausea with 1 episode of vomiting this morning. She still has not had a BM in 3 days. Denies fevers/chills. She's requesting her pain medications be increased. She has no other medical complaints at this time. Objective Vitals Vital Signs Date Time Temp Pulse Resp B/P Pulse Ox O2 Delivery O2 Flow Rate FiO2 07/04/16 07:33 98.6 102 20 125/60 99 07/04/16 04:47 98.8 98 18 135/55 96 07/04/16 02:31 101 07/04/16 00:15 98.4 103 18 117/56 98 07/03/16 20:06 98.3 101 18 126/59 98 07/03/16 16:18 98.0 101 17 128/58 95 07/03/16 12:17 98.8 103 19 122/66 96 07/03/16 11:51 109 Result Diagram: 07/04/16 0647 07/04/16 0647 Imaging Last Impressions Liver Ultrasound 07/02/16 0000 Signed Impressions: Service Date/Time: Saturday, July 02, 2016 20:42 - CONCLUSION: Liver enlarged to 20 cm with suspected hepatocellular disease. Splenomegaly to 18.6 cm. No free fluid. Cholecystectomy. Cliff Montez MD Objective Remarks GENERAL: Well-nourished, well-developed middle aged female patient in [facility]. SKIN: Warm and dry. No rash. HEENT: Normocephalic. Atraumatic. Pupils equal and round. +scleral icterus. Mucous membranes pink and moist. NECK: Supple. Trachea midline. CARDIOVASCULAR: Regular rate and rhythm. S1, S2 noted. No murmur appreciated. RESPIRATORY: No accessory muscle use. Clear to auscultation. Breath sounds equal bilaterally. GASTROINTESTINAL: Abdomen soft, nondistended, significant tenderness at RUQ with light palpation. Normoactive bowel sounds x4. MUSCULOSKELETAL: No obvious deformities. Extremities without clubbing, cyanosis , or edema. NEUROLOGICAL: Awake and alert. No obvious cranial nerve deficits. Motor grossly within normal limits. Normal speech. PSYCHIATRIC: Appropriate mood and affect; insight and judgment normal. Medications and IVs Current Medications Medications (Trade) Dose Ordered Sig/Ric Route Start Time Stop Time Status Last Admin (NS Flush) 2 ml UNSCH PRN IV FLUSH 07/02/16 22:30 07/04/16 07:44 (NS Flush) 2 ml BID IV FLUSH 07/03/16 09:00 07/04/16 09:23 Naloxone HCl 0.4 mg 0.4 mg UNSCH PRN IV 07/02/16 22:30 (Rocephin Inj/NS Inj) 100 ml @ 200 mls/hr Q12H IV 07/03/16 08:00 07/04/16 07:44 (Mephyton) 5 mg DAILY PO 07/03/16 09:00 07/04/16 09:23 (Protonix) 40 mg DAILY@06 PO 07/03/16 07:04 07/04/16 05:20 (Zofran Inj) 4 mg Q6HR PRN IV PUSH 07/03/16 09:15 07/04/16 07:44 (TRENtal SR) 400 mg Q8HR PO 07/03/16 14:00 07/04/16 05:20 (Reglan Inj) 10 mg Q8H PRN IV PUSH 07/03/16 13:00 07/03/16 13:16 (Morphine Inj) 2 mg Q3HR PRN IV PUSH 07/03/16 14:00 07/04/16 07:44 (D50w (Vial) Inj) 25 ml UNSCH PRN IV PUSH 07/03/16 18:30 (Glucagon Inj) 1 mg UNSCH PRN OTHER 07/03/16 18:30 A/P Problem List: (1) Liver failure ICD Code: K72.90 Status: Acute Assessment and Plan 41-year-old female with history of DM, PUD, nephrolithiasis, thrombocytopenia, prior alcohol abuse, presents with abdominal pain, nausea/vomiting, and jaundice. Acute on chronic liver failure: Elevated LFTs with T.bili 11.2, AST 191, ALT 28 , Alk Phos 158. Liver U/S 07/02 showed liver enlarged to 20cm with suspected hepatocellular disease; splenomegaly 18.6cm; no free fluid, s/p cholecystectomy ; No evidence of CBD stone or obstructive pathology. Consulted gastroenterology. AFP wnl. GI initiated liver work up. Continue Protonix 40mg qd. Supportive treatment with antiemetics and pain control with IV Morphine prn. Per GI, will also need EGD during this hospitalization. Admit to inpatient. 07/04 LFTs continue to be elevated, patient still very symptomatic with RUQ pain/N/V. UTI: UA with mod leuks, +nitrites, WBCs. Continue IV Rocephin. Urine culture with E. coli, resistant to bactrim and cipro, continue IV Rocephin for now as patient is vomiting. Elevated INR: INR 2.2secondary to liver failure. Monitor. Normocytic Anemia: Hgb 8.6 --> 7.4. Suspect secondary to liver failure. Iron studies/ferritin all low. Check stool Hemoccult and Gastroccult. Monitor CBC, stable with Hgb 8.0. Thrombocytopenia: secondary to liver failure/alcohol abuse. Monitor. Avoid antiplatelets. Prior history of EtOH abuse: reported hx of heavy alcohol abuse, now down to 2- 3beers per week. Start on CIWA protocol, thiamine/folate/MV. DVT prophylaxis: with ambulation/SCD. Avoid chemical prophylaxis with liver failure, platelets 33K, and INR 2.2. GI prophylaxis: pantoprazole Discharge Planning Admit to inpatient. Problem Qualifiers (1) Liver failure: Qualified Code: K72.10 - Chronic liver failure without hepatic coma Arlene Hooks PA-C July 04, 2016 10:57
[2016-07-04] MEDS ORDERED: MORPHINE SULFATE 4 MG/ML INJ IV PRN (11:00)
[2016-07-04] MEDS ORDERED: LORazepam 2 MG TAB PO PRN (11:15)
[2016-07-04] MEDS ORDERED: LORazepam 2 MG/ML VIAL IV PUSH PRN ×4 (11:15)
[2016-07-04] MEDS ORDERED: FLUMAZENIL 0.5 MG/5 ML VIAL IV PUSH PRN (11:15)
[2016-07-04] MEDS ORDERED: LORazepam 1 MG TAB PO PRN (11:15)
[2016-07-04] MEDS: THIAMINE INJ 100 MG in SODIUM CHLORIDE 0.9% INJ 100 ML IV SCH (11:50)
[2016-07-04] MEDS: METOCLOPRAMIDE HCL 10 MG/2 ML VIAL IV PUSH PRN ×2 (11:50→21:59)
--- NOTE | 2016-07-04 12:35 | HHI.GIFU ---
Subjective Remarks Pt resting in bed, in no apparent distress. She has some nausea and threw up this morning. She has right side abdominal pain. She had a nosebleed last night. (Blanka Reynoso) Objective Vitals I&O Vital Signs Date Time Temp Pulse Resp B/P Pulse Ox O2 Delivery O2 Flow Rate FiO2 07/04/16 11:35 98.8 91 20 117/64 100 07/04/16 07:33 98.6 102 20 125/60 99 07/04/16 04:47 98.8 98 18 135/55 96 07/04/16 02:31 101 07/04/16 00:15 98.4 103 18 117/56 98 07/03/16 20:06 98.3 101 18 126/59 98 07/03/16 16:18 98.0 101 17 128/58 95 07/03/16 12:17 98.8 103 19 122/66 96 Laboratory Laboratory Tests Test 07/03/16 07/03/16 07/04/16 13:58 21:30 06:47 Iron Level 46 Total Iron Binding Capacity 192 Percent Iron Saturation 24.0 Ferritin 45 Ammonia 58 Tumor Marker Alpha Fetoprotein 2.5 Hemoglobin 7.7 8.0 Hematocrit 23.5 23.1 White Blood Count 4.3 Red Blood Count 2.39 Mean Corpuscular Volume 96.6 Mean Corpuscular Hemoglobin 33.5 Mean Corpuscular Hemoglobin 34.7 Concent Red Cell Distribution Width 22.6 Platelet Count 37 Mean Platelet Volume 8.2 Neutrophils (%) (Auto) 80.0 Lymphocytes (%) (Auto) 11.8 Monocytes (%) (Auto) 6.5 Eosinophils (%) (Auto) 1.4 Basophils (%) (Auto) 0.3 Neutrophils # (Auto) 3.4 Lymphocytes # (Auto) 0.5 Monocytes # (Auto) 0.3 Eosinophils # (Auto) 0.1 Basophils # (Auto) 0.0 CBC Comment AUTO DIFF Differential Comment AUTO DIFF CONFIRMED Platelet Estimate LOW Platelet Morphology Comment NORMAL Target Cells 1+ Prothrombin Time 32.1 Prothromb Time International 2.8 Ratio Sodium Level 140 Potassium Level 3.2 Chloride Level 102 Carbon Dioxide Level 28.9 Anion Gap 9 Blood Urea Nitrogen 5 Creatinine 0.63 Estimat Glomerular Filtration 105 Rate Random Glucose 95 Calcium Level 8.0 Total Bilirubin 12.5 Aspartate Amino Transf 138 (AST/SGOT) Alanine Aminotransferase 24 (ALT/SGPT) Alkaline Phosphatase 143 Total Protein 6.3 Albumin 2.1 Date/Time Procedure Status Source Growth 07/04/16 08:22 Gastric Occult Blood Received Gastric Pending 07/02/16 18:40 Urine Culture - Final Complete Urine Clean Catch Escherichia Coli Imaging Last Impressions Liver Ultrasound 07/02/16 0000 Signed Impressions: Service Date/Time: Saturday, July 02, 2016 20:42 - CONCLUSION: Liver enlarged to 20 cm with suspected hepatocellular disease. Splenomegaly to 18.6 cm. No free fluid. Cholecystectomy. Cliff Montez MD Physical Exam HEENT: EOMI; normocephalic; atraumatic; +icterus CHEST: CTA CARDIAC: RRR ABDOMEN: Soft, somewhat distended, TTP right side; bowel sounds are present in all four quadrants. EXTREMITIES: No clubbing, cyanosis, or edema. SKIN: + jaundice, spider angioma, ecchymoses abd, right knee, left leg PEDIATRIC REGISTERED NURSE: No focal deficits; alert and oriented times three. (Blanka Reynoso [facility]) Assessment and Plan Plan ASSESSMENT: - Elevated LFTs, Jaundice, what appears to be consistent with alcoholic hepatitis on underlying liver cirrhosis. She denies any known hx of liver disease or hepatitis/cirrhosis. 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 Liver Ultrasound (07/02/16)----> Liver enlarged to 20 cm with suspected hepatocellular disease. Splenomegaly to 18.6 cm. No free fluid. Cholecystectomy. She reports that she was a heavy drinker, 5-6 shots of Vodka per day. She reports that she cut back about 6 months ago, drinking 2-3 beers a week. She reports that she last had one beer 3 days ago. She denies any known liver disease in herself or family. She has a hx of tatto from a parlor 17 years ago. She denies any new medications, herbal supplements, or new sexual partners. She does take a B12 supplement. Her labs and imaging are consistent with liver cirrhosis. Ammonia 58. MELD 20. DF 71.080. Pentoxyfilline. Rest of liver w/u pending. - Nausea, vomiting, abdominal pain x 1 week. She has hx of PUD. No hematemesis. Last EGD was about a year and a half ago. US as above. Will do EGD tomorrow - GERD. PPI. - Pancytopenia. WBC 4.3, HH 8.0/23.1, Plt 37. - Coagulopathy. INR 2.8. - UTI, Ceftriaxone. PLAN: - EGD tomorrow - NPO after midnight - obtain consents - Clear liquids for now - await liver w/u - start lactulose - Protonix 40mg daily - continue Pentoxifylline - On Vit. K - Monitor CBC, PT/INR. - Ammonia level - Ceftriaxone for uti - Supportive care - Pt seen and examined by Dr. Steel and myself and this note is written on her behalf (Blanka Reynoso) Physician Comments agree with above (Jenn Steel MD) Blanka Reynoso July 04, 2016 12:35 Jenn tSeel MD July 04, 2016 19:50
[2016-07-04] MEDS: MULTIVITAMIN INJ 10 ML, FOLIC ACID INJ 1 MG in SODIUM CHLORID 0.9% 500 ML INJ 500 ML IV SCH (13:04)
[2016-07-04] MEDS ORDERED: LACTULOSE SYRUP 20 GM/30 ML CUP PO ONE (13:15)
[2016-07-04] MEDS ORDERED: PHYTONADIONE 10 MG/ML VIAL SQ ONE (21:00)
[2016-07-05] VITALS (8 sets, daily range): BP systolic 112–122; BP diastolic 55–59; PULSE 88–110; RESP 16–22; TEMP 98.7–99.3; O2SAT 96–98
[2016-07-05] MEDS: ONDANSETRON HCL 4 MG/2 ML VIAL IV PUSH PRN ×2 (04:54→18:25)
[2016-07-05] MEDS: PENTOXIFYLLINE 400 MG CONTROLLED RELEASE TAB PO SCH ×3 (04:59→20:45)
[2016-07-05] MEDS: PANTOPRAZOLE SOD 40 MG DELAYED RELEASE TAB PO SCH (04:59)
[2016-07-05 05:38] LABS: AUTOMATED NEUTROPHIL # 3.2 TH/MM3 (1.8-7.7); BASOPHIL % 0.3 % (0.0-2.0); EOSINOPHIL # 0.1 TH/MM3 (0-0.4); EOSINOPHIL % 1.8 % (0.0-4.0); HEMATOCRIT 24.2 % (35.0-46.0); LYMPH % 12.5 % (9.0-44.0); LYMPHOCYTE # 0.5 TH/MM3 (1.0-4.8); MEAN CELL VOLUME 97.7 FL (80.0-100.0); MEAN CORPUSCULAR HEMOGLOBIN 32.5 PG (27.0-34.0); MEAN CORPUSCULAR HGB CONC 33.3 % (32.0-36.0); MONO % 7.6 % (0.0-8.0); NEUT % 77.8 % (16.0-70.0); PLATELET COUNT 39 TH/MM3 (150-450); RED BLOOD COUNT 2.48 MIL/MM3 (4.00-5.30); RED CELL DISTRIBUTION WIDTH 22.1 % (11.6-17.2); WHITE BLOOD COUNT 4.2 TH/MM3 (4.0-11.0)
[2016-07-05 05:50] LABS: HEMO FLAGS AUTO DIFF
[2016-07-05 06:05] LABS: ALKALINE PHOSPHATASE 136 U/L (45-117); ALT (GPT) 20 U/L (10-53); ANION GAP 9 MEQ/L (5-15); AST (GOT) 111 U/L (15-37); BICARBONATE 28.4 MEQ/L (21.0-32.0); BLOOD UREA NITROGEN 8 MG/DL (7-18); CHLORIDE 101 MEQ/L (98-107); GLOMERULAR FILTRATION RATE 95 ML/MIN (>89); MAGNESIUM 1.7 MG/DL (1.5-2.5); POTASSIUM 3.4 MEQ/L (3.5-5.1); SODIUM (NA) 138 MEQ/L (136-145)
[2016-07-05] MEDS: INSULIN ASPART SUPPLEMENTAL SCALE SQ SCH ×4 (06:16→21:00)
[2016-07-05] MEDS ORDERED: POTASSIUM CHLORIDE 20 MEQ CONTROLLED RELEASE TAB PO ONE (07:15)
[2016-07-05 08:22] LABS: SCAN/DIFF AUTO DIFF CONFIRMED; TARGET CELLS 1+ (NORMAL)
[2016-07-05] MEDS: cefTRIAXone INJ 1,000 MG in SODIUM CHLORIDE 0.9% INJ 100 ML IV SCH (08:50)
[2016-07-05] MEDS: SODIUM CHLORIDE 0.9% FLUSH 10 ML FLUSH IV FLUSH SCH ×2 (09:00→20:45)
[2016-07-05] MEDS ORDERED: PROPOFOL 200 MG/20 ML AMP IV ONE (10:26)
--- NOTE | 2016-07-05 10:37 | GIPROC ---
[facility] [address] [facility]. 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 TOPICAL ANESTHETIC: none CONSENT: The patient understands the risks and benefits of the procedure and understands that these risks include, but are not limited to: sedation, allergic reaction, infection, perforation and/or bleeding. Alternative means of evaluation and treatment include, among others: physical exam, x-rays, and/or surgical intervention. The patient elects to proceed with this endoscopic procedure. medical equipment was checked for proper function. Hand hygiene and appropriate measures for infection prevention was taken. After the risks, benefits and alternatives of the procedure were thoroughly explained, Informed consent was verified, confirmed and timeout was successfully executed by the treatment team. The patient was anesthetized with topical anesthesia and the Pentax [id number] endoscope was introduced through the mouth and advanced to the second portion of the duodenum. Retroflexed views revealed a hiatal hernia The gastroscope was then slowly withdrawn and removed. Portal hypertension no esophageal varices no biopsy due to high inr, low platelets. ADVERSE EVENTS: There were no complications. IMPRESSIONS: 1. Portal hypertension no esophageal varices no biopsy due to high inr, low platelets 2. Retroflexed views revealed a hiatal hernia RECOMMENDATIONS: Advance diet ppi monitor lfts, cbc, cmp, pt/inr PATIENT CONDITION: stable DISPOSITION: Inpatient REPEAT EXAM: Return 6 months EGD Jenn Steel MD eSigned: Jenn Steel MD 07/05/2016 10:37 AM cc:
[2016-07-05] MEDS: PHYTONADIONE 5 MG TAB PO SCH (11:27)
[2016-07-05 12:10] LABS: INTERNATIONAL NORMALIZED RATIO 2.8 RATIO; PROTHROMBIN TIME - PATIENT 32.8 SEC (9.8-11.6)
--- NOTE | 2016-07-05 13:18 | HHI.PR ---
Subjective Remarks Follow up abdominal pain, nausea and vomiting. Patient laying in bed, just returned form EGD. Patient states she is feeling better. Denies any nausea or vomiting. States she has some discomfort in the right upper abdomen but states it is getting better. Objective Vitals Vital Signs Date Time Temp Pulse Resp B/P Pulse Ox O2 Delivery O2 Flow Rate FiO2 07/05/16 11:06 98.7 97 18 122/57 98 07/05/16 10:52 103 18 118/65 96 07/05/16 10:42 100 18 121/67 98 07/05/16 10:32 98.7 100 18 107/67 96 07/05/16 09:31 99.3 103 18 112/55 96 07/05/16 08:03 99.3 103 18 112/55 96 07/05/16 05:59 18 07/05/16 04:30 98.8 88 18 116/56 97 07/05/16 03:59 110 07/04/16 23:27 98.8 94 18 107/57 97 07/04/16 19:32 98.4 97 18 130/58 98 07/04/16 15:51 99.0 105 18 124/68 100 I/O 07/04/16 07/04/16 07/04/16 07/05/16 07/05/16 07/05/16 07:00 15:00 23:00 07:00 15:00 23:00 Intake Total 1120 ml 100 ml Balance 1120 ml 100 ml Intake Oral 720 ml IV Total 400 ml Other 100 ml # Voids 4 2 # Bowel Movements 2 Result Diagram: 07/05/16 0530 07/05/16 0530 Imaging Last Impressions Liver Ultrasound 07/02/16 0000 Signed Impressions: Service Date/Time: Saturday, July 02, 2016 20:42 - CONCLUSION: Liver enlarged to 20 cm with suspected hepatocellular disease. Splenomegaly to 18.6 cm. No free fluid. Cholecystectomy. Cliff Montez MD Objective Remarks GENERAL: Well nourished patient, laying in bed SKIN: Warm and dry. HEAD: Atraumatic. Normocephalic. EYES: Pupils equal and round. No scleral icterus. No injection or drainage. NECK: Trachea midline. No JVD. CARDIOVASCULAR: Regular rate and rhythm. RESPIRATORY: No accessory muscle use. Clear to auscultation. Breath sounds equal bilaterally. GASTROINTESTINAL: Abdomen soft, RUQ tenderness to palpation, nondistended. Hepatic and splenic margins not palpable. MUSCULOSKELETAL: Extremities without clubbing, cyanosis, or edema. No obvious deformities. NEUROLOGICAL: Awake and alert. Motor grossly within normal limits. Normal speech. PSYCHIATRIC: Appropriate mood and affect; insight and judgment normal. Procedures 07/05 EGD report shows portal hypertension, no esophageal varices, and a hiatal hernia Medications and IVs Current Medications Medications (Trade) Dose Ordered Sig/Ric Route Start Time Stop Time Status Last Admin (NS Flush) 2 ml UNSCH PRN IV FLUSH 07/02/16 22:30 07/04/16 16:07 (NS Flush) 2 ml BID IV FLUSH 07/03/16 09:00 07/04/16 20:19 (Narcan Inj) 0.4 mg UNSCH PRN IV 07/02/16 22:30 (Mephyton) 5 mg DAILY PO 07/03/16 09:00 07/05/16 11:27 (Protonix) 40 mg DAILY@06 PO 07/03/16 07:04 07/05/16 04:59 (Zofran Inj) 4 mg Q6HR PRN IV PUSH 07/03/16 09:15 07/05/16 04:54 (TRENtal SR) 400 mg Q8HR PO 07/03/16 14:00 07/05/16 04:59 (Reglan Inj) 10 mg Q8H PRN IV PUSH 07/03/16 13:00 07/04/16 21:59 (D50w (Vial) Inj) 25 ml UNSCH PRN IV PUSH 07/03/16 18:30 (Glucagon Inj) 1 mg UNSCH PRN OTHER 07/03/16 18:30 (Morphine Inj) 2 mg Q3H PRN IV 07/04/16 11:00 (Morphine Inj) 4 mg Q3H PRN IV 07/04/16 11:00 Oxycodone HCl 5 mg 5 mg Q4H PRN PO 07/04/16 11:00 07/05/16 04:54 Multivitamins 10 ml/Folic Acid 1 mg/Sodium Chloride 510.2 ml @ 125 mls/hr Q24H IV 07/04/16 13:00 07/09/16 12:59 07/04/16 13:04 (Thiamine Inj/NS Inj) 101 ml @ 100 mls/hr Q24H IV 07/04/16 12:00 07/06/16 13:01 07/04/16 11:50 (Vitamin B1) 100 mg DAILY PO 07/07/16 09:00 (Romazicon Inj) 0.2 mg Q1M PRN IV PUSH 07/04/16 11:15 (Ativan) 1 mg Q4H PRN PO 07/04/16 11:15 07/05/16 05:03 (Ativan Inj) 1 mg Q4H PRN IV PUSH 07/04/16 11:15 (Ativan) 2 mg Q2H PRN PO 07/04/16 11:15 (Ativan Inj) 2 mg Q2H PRN IV PUSH 07/04/16 11:15 (Ativan Inj) 2 mg Q1H PRN IV PUSH 07/04/16 11:15 Lorazepam 2 mg 2 mg Q15M PRN IV PUSH 07/04/16 11:15 (Rocephin Inj/NS Inj) 100 ml @ 200 mls/hr Q24H IV 07/06/16 08:00 A/P Problem List: (1) Liver failure ICD Code: K72.90 Status: Acute Assessment and Plan 41-year-old female with history of DM, PUD, nephrolithiasis, thrombocytopenia, prior alcohol abuse, presents with abdominal pain, nausea/vomiting, and jaundice. Acute on chronic liver failure: Elevated LFTs with T.bili 11.2, AST 191, ALT 28 , Alk Phos 158. Liver U/S 07/02 showed liver enlarged to 20cm with suspected hepatocellular disease; splenomegaly 18.6cm; no free fluid, s/p cholecystectomy ; No evidence of CBD stone or obstructive pathology. Consulted gastroenterology. AFP wnl. GI initiated liver work up. Continue Protonix 40mg qd. Supportive treatment with antiemetics and pain control with IV Morphine prn. Per GI, will also need EGD during this hospitalization. Admit to inpatient. 07/04 LFTs continue to be elevated, patient still very symptomatic with RUQ pain/N /V. 07/05 LFTs trending down, patient denies N/V, had BM last night due to lactulose. EGD completed report shows portal hypertension, no esophageal varices , and a hiatal hernia, GI recommends advance diet, PPI and monitory lfts, cbc, cmp and pt/inr, repeat EGD in 6 months. Ammonia improved to 39 post lactulose. Discussed with GI will start lactulose and monitor oral intake. UTI: UA with mod leuks, +nitrites, WBCs. Continue IV Rocephin. Urine culture with E. coli, resistant to bactrim and cipro, continue IV Rocephin for now. Elevated INR: INR 2.2secondary to liver failure. Monitor. Normocytic Anemia: Hgb 8.6 --> 7.4-->8.1. Suspect secondary to liver failure. Iron studies/ferritin all low. Check stool Hemoccult. Gastroccult negative. Monitor CBC, stable with Hgb 8.1. Thrombocytopenia: secondary to liver failure/alcohol abuse. Monitor. Avoid antiplatelets. Prior history of EtOH abuse: reported hx of heavy alcohol abuse, now down to 2- 3beers per week. States she hasn't had any in a few weeks. Start on CIWA protocol, thiamine/folate/MV. Encouraged to quit DVT prophylaxis: with ambulation/SCD. Avoid chemical prophylaxis with liver failure, platelets 33K, and INR 2.2. GI prophylaxis: pantoprazole Discharge Planning Pending GI clearance Problem Qualifiers (1) Liver failure: Qualified Code: K72.10 - Chronic liver failure without hepatic coma Summer Zarco July 05, 2016 13:18
[2016-07-05 14:55] LABS: ANA SCREEN NEG (NEG)
[2016-07-05] MEDS: THIAMINE INJ 100 MG in SODIUM CHLORIDE 0.9% INJ 100 ML IV SCH (15:18)
[2016-07-05] MEDS: MULTIVITAMIN INJ 10 ML, FOLIC ACID INJ 1 MG in SODIUM CHLORID 0.9% 500 ML INJ 500 ML IV SCH (16:49)
[2016-07-05] MEDS: METOCLOPRAMIDE HCL 10 MG/2 ML VIAL IV PUSH PRN (22:57)
[2016-07-05] MEDS: SODIUM CHLORIDE 0.9% FLUSH 10 ML FLUSH IV FLUSH PRN (22:57)
[2016-07-05] MEDS: MORPHINE SULFATE 4 MG/ML INJ IV PRN (22:58)
[2016-07-06] VITALS: BP 112/60; PULSE 95; RESP 18; TEMP 98.2; O2SAT 95
[2016-07-06] MEDS: ONDANSETRON HCL 4 MG/2 ML VIAL IV PUSH PRN (03:41)
[2016-07-06] MEDS: MORPHINE SULFATE 4 MG/ML INJ IV PRN (03:42)
[2016-07-06 04:00] VITALS: BP 117/75; PULSE 99; RESP 20; TEMP 96.6; O2SAT 98
[2016-07-06] MEDS: PENTOXIFYLLINE 400 MG CONTROLLED RELEASE TAB PO SCH ×2 (05:46→13:56)
[2016-07-06] MEDS: PANTOPRAZOLE SOD 40 MG DELAYED RELEASE TAB PO SCH (05:47)
[2016-07-06] MEDS: INSULIN ASPART SUPPLEMENTAL SCALE SQ SCH ×2 (05:50→10:54)
[2016-07-06 08:00] VITALS: BP_SYST 115; BP_SYST 120; BP_DIAS 59; BP_DIAS 70; PULSE 78; PULSE 80; RESP 19; RESP 20; TEMP 97.8; TEMP 98.1; O2SAT 94; O2SAT 96
[2016-07-06] MEDS ORDERED: cefTRIAXone INJ 1,000 MG in SODIUM CHLORIDE 0.9% INJ 100 ML IV SCH (08:00)
[2016-07-06] MEDS: PHYTONADIONE 5 MG TAB PO SCH (08:19)
[2016-07-06] MEDS: SODIUM CHLORIDE 0.9% FLUSH 10 ML FLUSH IV FLUSH SCH (08:20)
[2016-07-06] MEDS ORDERED: LACTULOSE SYRUP 20 GM/30 ML CUP PO SCH (09:00)
--- NOTE | 2016-07-06 11:41 | HHI.PR ---
Subjective Remarks resting comfortably with no distress. says that she's feeling better today. has mild abdominal pain with no nausea or vomiting. no other complaints. Objective Vitals Vital Signs Date Time Temp Pulse Resp B/P Pulse Ox O2 Delivery O2 Flow Rate FiO2 07/06/16 08:00 97.8 78 19 115/59 94 07/06/16 04:00 96.6 99 20 117/75 98 07/06/16 00:00 98.2 95 18 112/60 95 07/05/16 23:10 16 07/05/16 22:45 96 07/05/16 19:20 98.7 98 22 116/55 98 07/05/16 18:31 20 07/05/16 15:37 99.0 100 16 114/59 98 I/O 07/05/16 07/05/16 07/05/16 07/06/16 07/06/16 07/06/16 07:00 15:00 23:00 07:00 15:00 23:00 Intake Total 100 ml 240 ml Balance 100 ml 240 ml Intake Oral 240 ml Other 100 ml # Voids 2 1 # Bowel Movements 0 Result Diagram: 07/05/16 0530 07/05/16 0530 Imaging Last Impressions Liver Ultrasound 07/02/16 0000 Signed Impressions: Service Date/Time: Saturday, July 02, 2016 20:42 - CONCLUSION: Liver enlarged to 20 cm with suspected hepatocellular disease. Splenomegaly to 18.6 cm. No free fluid. Cholecystectomy. Cliff Montez MD Objective Remarks GENERAL: This is a well-nourished, well-developed patient, in no apparent distress. CARDIOVASCULAR: Regular rate and regular rhythm without murmurs, gallops, or rubs. RESPIRATORY: Clear to auscultation. Breath sounds equal bilaterally. No wheezes , rales, or rhonchi. GASTROINTESTINAL: Abdomen soft, non-tender, nondistended. Normal, active bowel sounds MUSCULOSKELETAL: Extremities without clubbing, cyanosis, or edema. NEURO: Alert & Oriented x4 to person, place, time, situation. Moves all ext x4 Procedures 07/05 EGD report shows portal hypertension, no esophageal varices, and a hiatal hernia Medications and IVs Current Medications Morphine Sulfate (Morphine Inj) 4 mg ONCE ONCE IV PUSH Last administered on t 19:35; Start 07/02/16 at 19:30; Stop 07/02/16 at 19:31; Status DC Ondansetron HCl 4 mg 4 mg ONCE ONCE IV PUSH Last administered on 07/02/16 19: 35; Start 07/02/16 at 19:30; Stop 07/02/16 at 19:31; Status DC Ceftriaxone Sodium/Sodium Chloride (Rocephin Inj/NS Inj) 100 ml @ 200 mls/hr ONCE ONCE IV Last administered on 07/02/16 20:35; Start 07/02/16 at 20:15; Stop 07/02/16 at 20:44; Status DC Sodium Chloride (NS Flush) 2 ml UNSCH PRN IV FLUSH FLUSH AFTER USING IV ACCESS Last administered on 07/05/16 22:57; Start 07/02/16 at 22:30 Sodium Chloride (NS Flush) 2 ml BID IV FLUSH Last administered on 07/06/16 08: 20; Start 07/03/16 at 09:00 Naloxone HCl (Narcan Inj) 0.4 mg UNSCH PRN IV SEE LABEL COMMENTS; Start at 22:30 Morphine Sulfate (Morphine Inj) 4 mg ONCE ONCE IV PUSH Last administered on 22:51; Start 07/02/16 at 22:45; Stop 07/02/16 at 22:46; Status DC Morphine Sulfate 2 mg 2 mg Q6H PRN IV PUSH pain >5 Last administered on 02:13; Start 07/03/16 at 01:45; Stop 07/03/16 at 07:59; Status DC Ceftriaxone Sodium/Sodium Chloride (Rocephin Inj/NS Inj) 100 ml @ 200 mls/hr Q12H IV Last administered on 07/05/16 08:50; Start 07/03/16 at 08:00; Stop 12/12 at 10:24; Status DC Phytonadione (Mephyton) 5 mg DAILY PO Last administered on 07/06/16 08:19; Start 07/03/16 at 09:00 Pantoprazole Sodium (Protonix) 40 mg DAILY@06 PO Last administered on 05:47; Start 07/03/16 at 07:04 Morphine Sulfate (Morphine Inj) 2 mg Q4HR PRN IV PUSH pain >5 Last administered on 07/03/16 08:43; Start 07/03/16 at 08:00; Stop 07/03/16 at 13:15; Status DC Ondansetron HCl (Zofran Inj) 4 mg Q6HR PRN IV PUSH nausea/vomiting Last administered on 07/06/16 03:41; Start 07/03/16 at 09:15 Pentoxifylline (TRENtal SR) 400 mg Q8HR PO Last administered on 07/06/16 05:46 ; Start 07/03/16 at 14:00 Metoclopramide HCl (Reglan Inj) 10 mg Q8H PRN IV PUSH severe nausea/vomiting Last administered on 07/05/16 22:57; Start 07/03/16 at 13:00 Morphine Sulfate (Morphine Inj) 2 mg Q3HR PRN IV PUSH pain scale >5 Last administered on 07/04/16 07:44; Start 07/03/16 at 14:00; Stop 07/04/16 at 11:00; Status DC Dextrose (D50w (Vial) Inj) 25 ml UNSCH PRN IV PUSH HYPOGLYCEMIA-SEE COMMENTS; Start 07/03/16 at 18:30 Glucagon (Glucagon Inj) 1 mg UNSCH PRN OTHER HYPOGLYCEMIA-SEE COMMENTS; Start 07/03/16 at 18:30 Insulin Aspart (NovoLOG SUPPLEMENTAL SCALE) 1 ACHS SLIDING SCALE SQ ; Start 07/03/16 at 21:00 Potassium Chloride (KCl) 40 meq ONCE ONCE PO Last administered on 07/04/16 10: 56; Start 07/04/16 at 10:45; Stop 07/04/16 at 10:46; Status DC Morphine Sulfate (Morphine Inj) 2 mg Q3H PRN IV Pain 3-5; if unable to take PO Last administered on 07/05/16 18:26; Start 07/04/16 at 11:00 Morphine Sulfate (Morphine Inj) 4 mg Q3H PRN IV Pain 6-10;if unable to take PO Last administered on 07/06/16 03:42; Start 07/04/16 at 11:00 Oxycodone HCl 5 mg 5 mg Q4H PRN PO PAIN SCALE 3 TO 10 Last administered on 07/06 08:23; Start 07/04/16 at 11:00 Multivitamins 10 ml/Folic Acid 1 mg/Sodium Chloride 510.2 ml @ 125 mls/hr Q24H IV Last administered on 07/05/16 16:49; Start 07/04/16 at 13:00; Stop 07/09/16 at 12:59 Thiamine HCl/ Sodium Chloride (Thiamine Inj/NS Inj) 101 ml @ 100 mls/hr Q24H IV Last administered on 07/05/16 15:18; Start 07/04/16 at 12:00; Stop 07/06/16 at 13:01 Thiamine HCl (Vitamin B1) 100 mg DAILY PO ; Start 07/07/16 at 09:00 Flumazenil (Romazicon Inj) 0.2 mg Q1M PRN IV PUSH SEE LABEL COMMENTS; Start 07/04/16 at 11:15 Lorazepam (Ativan) 1 mg Q4H PRN PO CIWA 8 - 10 Last administered on 07/05/16 05:03; Start 07/04/16 at 11:15 Lorazepam (Ativan Inj) 1 mg Q4H PRN IV PUSH CIWA 8 - 10; Start 07/04/16 at 11:15 Lorazepam (Ativan) 2 mg Q2H PRN PO CIWA 11-14; Start 07/04/16 at 11:15 Lorazepam (Ativan Inj) 2 mg Q2H PRN IV PUSH CIWA 11-14; Start 07/04/16 at 11:15 Lorazepam (Ativan Inj) 2 mg Q1H PRN IV PUSH CIWA 15-20; Start 07/04/16 at 11:15 Lorazepam (Ativan Inj) 2 mg Q15M PRN IV PUSH CIWA > 20; Start 07/04/16 at 11:15 Lactulose (Lactulose Liq) 30 ml ONCE ONCE PO Last administered on 07/04/16 13: 33; Start 07/04/16 at 13:15; Stop 07/04/16 at 13:18; Status DC Phytonadione (Vitamin K Inj) 10 mg ONCE ONCE SQ Last administered on 07/04/16 21:58; Start 07/04/16 at 21:00; Stop 07/04/16 at 21:01; Status DC Potassium Chloride 20 meq 20 meq ONCE ONCE PO Last administered on 07/05/16 11:27; Start 07/05/16 at 07:15; Stop 07/05/16 at 07:16; Status DC Ceftriaxone Sodium/Sodium Chloride (Rocephin Inj/NS Inj) 100 ml @ 200 mls/hr Q24H IV Last administered on 07/06/16 08:19; Start 07/06/16 at 08:00 Propofol (Diprivan 200 Mg/20 ml Inj) 200 mg STK-MED ONCE IV ; Start 07/05/16 at 10:26; Stop 07/05/16 at 10:40; Status DC Lactulose (Lactulose Liq) 30 ml DAILY PO Last administered on 07/06/16 08:19; Start 07/06/16 at 09:00 A/P Assessment and Plan A/P Acute on chronic liver failure: Liver U/S 07/02 showed liver enlarged to 20cm with suspected hepatocellular disease; splenomegaly 18.6cm; no free fluid, s/p cholecystectomy; No evidence of CBD stone or obstructive pathology. s/p EGD with portal hypertension, hiatal hernia and no esophageal varices UTI: UA with mod leuks, +nitrites, WBCs. treated with IV Rocephin. Urine culture with E. coli. Elevated INR: INR 2.2secondary to liver failure. Monitor. Normocytic Anemia: H/H fairly stable. Suspect secondary to liver failure. Iron studies/ferritin all low. Gastroccult negative. Monitor CBC, stable with Hgb 8.1. Thrombocytopenia: chronic- secondary to liver failure/alcohol abuse. Monitor. Avoid antiplatelets. no bleeding. Prior history of EtOH abuse: reported hx of heavy alcohol abuse, now down to 2- 3beers per week. States she hasn't had any in a few weeks. Started on CIWA protocol, thiamine/folate/MV. Encouraged to quit diabetes mellitus; accu-checks with good readings; hold oral hypoglycemics for now due to liver failure- f/u as outpatient. DVT prophylaxis: with ambulation/SCD. Avoid chemical prophylaxis with liver failure. GI prophylaxis: pantoprazole Discharge Planning dc home today if ok with GI. see med list. f/u; pcp and GI. d/w the patient. time spent 31 min. Jorge Phelps MD July 06, 2016 11:41
[2016-07-06] MEDS ORDERED: FOLI1TAB4 PO (11:45)
[2016-07-06] MEDS ORDERED: PENT400T PO (11:45)
[2016-07-06] MEDS ORDERED: VITA100T2 PO (11:45)
[2016-07-06] MEDS ORDERED: MULT1TAB84 PO (11:45)
[2016-07-06] MEDS ORDERED: LACT10SO PO (11:45)
[2016-07-06] MEDS ORDERED: PANT40TA3 PO (11:45)
--- NOTE | 2016-07-06 11:46 | HHI.DCPOC ---
Discharge Care Plan Diagnosis: (1) Liver failure Additional Problems elevated liver function test. Goals to Promote Your Health * To prevent worsening of your condition and complications * To maintain your health at the optimal level Directions to Meet Your Goals Take your medications as prescribed Follow your dietary instruction Follow activity as directed Keep your appointments as scheduled Take your immunizations and boosters as scheduled If your symptoms worsen call your PCP, if no PCP go to Urgent Care Center or Emergency Room Smoking is Dangerous to Your Health. Avoid second hand smoke Call the 24-hour hour crisis hotline for domestic abuse at Jorge Phelps MD July 06, 2016 11:46
--- NOTE | 2016-07-06 11:47 | HHI.DS ---
Discharge Summary Admission Date July 04, 2016 at 10:07 Discharge Date: July 06, 2016 Admitting Diagnosis liver failure (1) Liver failure ICD Code: K72.90 Diagnosis: Principal Procedures 07/05 EGD report shows portal hypertension, no esophageal varices, and a hiatal hernia Brief History - From Admission History from patient, ER physician communication, and review of medical records. Patient reported that for the past 4 days, she has been vomiting. Stated about 2-3 times a day. Also reports of associated right upper quadrant abdominal pain. She stated she did not check for fever but felt hot and red all throughout. Reports of nausea. Denies any black color stool or red color stool. Denies blood in her urine. She reports her urine color is however quite different and has been having foul- smelling urine. She states that her who drives trucks was away for about 3 weeks and yesterday when he came back home and he noticed that she was extremely jaundiced. He finally decided to bring her to hospital because he was so worried that she would pass away at home. She states she has impaired vision secondary to diabetes and she herself did not really notice being jaundiced. She states other family members who were with her also did not mention much about it. She also reports of nosebleeds in the past few weeks. Reports of easy bruising all over her body. She states that her nausea and vomiting episodes with abdominal pain has been going on and off for the past several months ago. She states that in her previous admission she was told that she might have signs and symptoms of ITP because of easy bruising. She states she has had cholecystectomy then. gallbladder removed platelets were low then egd then- could not do then due to platelets spleen was enlarged Patient states that although she is diabetic, she is not on any prescribed medications currently. She states she was switching her insurance from [employer] to here. She previously was on metformin and glipizide. Currently, she takes the following medications [id number]. Tylenol2 pills twice a day. She does not know the milligrams. no prescribed meds- was switching from [employer] insurance to here was on metformin and glipizide over the counter- tylenol- 2 pills twice a day 2 calcium pills - all natural pill from [facility] vitamin b12 - 2 water pills- over the counter, all natural antacid medicine - lansoprazole CBC/BMP: 07/05/16 0530 07/05/16 0530 Significant Findings Laboratory Tests Test 07/03/16 07/03/16 07/04/16 07/05/16 13:58 21:30 06:47 05:30 Iron Level 46 MCG/DL (50-170) Total Iron Binding Capacity 192 MCG/DL (250-450) Ammonia 58 MCMOL/L (11-32) Hemoglobin 7.7 GM/DL 8.0 GM/DL 8.1 GM/DL (11.6-15.3) (11.6-15.3) (11.6-15.3) Hematocrit 23.5 % 23.1 % 24.2 % (35.0-46.0) (35.0-46.0) (35.0-46.0) Red Blood Count 2.39 MIL/MM3 2.48 MIL/MM3 (4.00-5.30) (4.00-5.30) Red Cell Distribution Width 22.6 % 22.1 % (11.6-17.2) (11.6-17.2) Platelet Count 37 TH/MM3 39 TH/MM3 (150-450) (150-450) Neutrophils (%) (Auto) 80.0 % 77.8 % (16.0-70.0) (16.0-70.0) Lymphocytes # (Auto) 0.5 TH/MM3 0.5 TH/MM3 (1.0-4.8) (1.0-4.8) Platelet Estimate LOW (NORMAL) Target Cells 1+ (NORMAL) 1+ (NORMAL) Prothrombin Time 32.1 SEC (9.8-11.6) Potassium Level 3.2 MEQ/L 3.4 MEQ/L (3.5-5.1) (3.5-5.1) Blood Urea Nitrogen 5 MG/DL (7-18) Calcium Level 8.0 MG/DL 7.9 MG/DL (8.5-10.1) (8.5-10.1) Total Bilirubin 12.5 MG/DL 13.0 MG/DL (0.2-1.0) (0.2-1.0) Aspartate Amino Transf 138 U/L (15-37) 111 U/L (15-37) (AST/SGOT) Alkaline Phosphatase 143 U/L 136 U/L (45-117) (45-117) Total Protein 6.3 GM/DL 6.2 GM/DL (6.4-8.2) (6.4-8.2) Albumin 2.1 GM/DL 2.0 GM/DL (3.4-5.0) (3.4-5.0) Test 07/05/16 11:51 Prothrombin Time 32.8 SEC (9.8-11.6) Ammonia 39 MCMOL/L (11-32) Imaging Last Impressions Liver Ultrasound 07/02/16 0000 Signed Impressions: Service Date/Time: Saturday, July 02, 2016 20:42 - CONCLUSION: Liver enlarged to 20 cm with suspected hepatocellular disease. Splenomegaly to 18.6 cm. No free fluid. Cholecystectomy. Cliff Montez MD PE at Discharge GENERAL: This is a well-nourished, well-developed patient, in no apparent distress. CARDIOVASCULAR: Regular rate and regular rhythm without murmurs, gallops, or rubs. RESPIRATORY: Clear to auscultation. Breath sounds equal bilaterally. No wheezes , rales, or rhonchi. GASTROINTESTINAL: Abdomen soft, non-tender, nondistended. Normal, active bowel sounds MUSCULOSKELETAL: Extremities without clubbing, cyanosis, or edema. NEURO: Alert & Oriented x4 to person, place, time, situation. Moves all ext x4 Hospital Course Acute on chronic liver failure: Liver U/S 07/02 showed liver enlarged to 20cm with suspected hepatocellular disease; splenomegaly 18.6cm; no free fluid, s/p cholecystectomy; No evidence of CBD stone or obstructive pathology. s/p EGD with portal hypertension, hiatal hernia and no esophageal varices UTI: UA with mod leuks, +nitrites, WBCs. treated with IV Rocephin. Urine culture with E. coli. Elevated INR: INR 2.2secondary to liver failure. Monitor. Normocytic Anemia: H/H fairly stable. Suspect secondary to liver failure. Iron studies/ferritin all low. Gastroccult negative. Monitor CBC, stable with Hgb 8.1. Thrombocytopenia:chronic- secondary to liver failure/alcohol abuse. Monitor. Avoid antiplatelets. no active bleed. Prior history of EtOH abuse: reported hx of heavy alcohol abuse, now down to 2- 3beers per week. States she hasn't had any in a few weeks. Started on CIWA protocol, thiamine/folate/MV. Encouraged to quit diabetes mellitus; accu-checks with good readings; hold oral hypoglycemics for now due to liver failure- f/u as outpatient. DVT prophylaxis: with ambulation/SCD. Avoid chemical prophylaxis with liver failure. GI prophylaxis: pantoprazole Pt Condition on Discharge: Good Discharge Disposition: Discharge Home Discharge Time: > 30 minutes Discharge Instructions DIET: Follow Instructions for: Heart Healthy Diet, Diabetic Diet Activities you can perform: Regular-No Restrictions Follow up Referrals: Gastroenterology PCP Follow-up New Medications: Folic Acid (Folate) 1 Mg Tab 1 MG PO DAILY Nutritional Supplement Days 30 Ref 0 TAB Multiple Vitamins W/ Minerals (Multivitamin Adults) 1 Tab 1 TAB PO DAILY Nutritional Supplement Days 30 Ref 0 TAB Lactulose Liq (Lactulose Liq) 10 Gm/15 Ml Soln 30 ML PO DAILY laxative Days 14 Ref 1 ML Pantoprazole (Pantoprazole) 40 Mg Tab 40 MG PO DAILY@06 ppi Days 30 Ref 0 TAB Pentoxifylline ER (Pentoxifylline ER) 400 Mg Tab 400 MG PO Q8HR hepatitis Days 28 Ref 0 TAB Thiamine (Vitamin B-1) 100 Mg Tab 100 MG PO DAILY vitamin Days 30 Ref 0 TAB Discontinued Medications: Glipizide (Glipizide) 5 Mg Tab 5 MG PO DAILY Take 30 minutes before a meal Blood Sugar Management #30 Ref 0 TAB Metformin (Metformin) 500 Mg Tab 500 MG PO BIDPC With meals Blood Sugar Management #60 Ref 0 TAB Jorge Phelps MD July 06, 2016 11:47
[2016-07-06] MEDS: THIAMINE INJ 100 MG in SODIUM CHLORIDE 0.9% INJ 100 ML IV SCH (12:00)
[2016-07-06] MEDS: MULTIVITAMIN INJ 10 ML, FOLIC ACID INJ 1 MG in SODIUM CHLORID 0.9% 500 ML INJ 500 ML IV SCH (13:00)
[2016-07-07 03:51] LABS: MITOCHONDRIAL ABS LESS THAN 20.0 U (())
[2016-07-07] MEDS ORDERED: THIAMINE HCL 100 MG TAB PO SCH (09:00)
== END 2016-07-06 14:03 | disposition home or self-care (01) | DRG 442 ==
LOC: NEPC 18:00 → NEDA 22:24 → NEPHCDU 07-03 00:14 → OBSVTOIN 07-04 10:07 → N06B 07-05 23:41
PROVIDERS: ADMIT Internal Medicine; ATTEND Internal Medicine
PROC: 0DJ08ZZ Inspection of Upper Intestinal Tract, Via Natural or Artificial Opening Endoscopic (ICD-10-PCS; principal; 2016-07-05 10:05)
DX: K72.00 Acute and subacute hepatic failure without coma (principal); N39.0 Urinary tract infection, site not specified; D61.818 Other pancytopenia; D68.9 Coagulation defect, unspecified; E11.69 Type 2 diabetes mellitus with other specified complication; K76.6 Portal hypertension; K74.60 Unspecified cirrhosis of liver; R04.0 Epistaxis; F10.10 Alcohol abuse, uncomplicated; G89.29 Other chronic pain; M54.9 Dorsalgia, unspecified; K21.9 Gastro-esophageal reflux disease without esophagitis; K44.9 Diaphragmatic hernia without obstruction or gangrene; B96.20 Unspecified Escherichia coli [E. coli] as the cause of diseases classified elsewhere; H54.7 Unspecified visual loss; Z87.442 Personal history of urinary calculi; Z87.11 Personal history of peptic ulcer disease
CPT/HCPCS: 76705; 80053; 80074; 80307; 81001; 82103; 82105; 82140; 82248; 82270; 82390; 82728; 82948; 83520; 83540; 83550; 83735; 85007; 85014; 85018; 85025; 85027; 85610; 85730; 86038; 86256; 87077; 87086; 87186; 96365; 96375; G0378; J0696; J2270; J2405; J2765; J3411; J3430; J7040

== ENCOUNTER 2016-07-17 08:31 | Inpatient (IN) | payer OTHER ==
[~2016-07-17] VITALS: Ht 160 cm; Wt 78.2 kg
[2016-07-17] VITALS (10 sets, daily range): BP systolic 117–150; BP diastolic 60–81; PULSE 90–101; RESP 16–20; TEMP 97–98.3; O2SAT 92–99
[~2016-07-17 08:31] MED LIST changes: +FOLI1TAB4 PO; -GLIP5 PO; -GLUCTAB PO; +LACT10SO PO; +MULT1TAB84 PO; +PANT40TA3 PO; +PENT400T PO; -TRAM50 PO; +VITA100T2 PO
[2016-07-17] MEDS ORDERED: SODIUM CHLORIDE 0.9% FLUSH 10 ML FLUSH IV FLUSH PRN ×2 (08:45→13:15)
[2016-07-17] MEDS ORDERED: [UNRECOGNIZED DRUG - CODE] PO (08:50)
[2016-07-17 09:17] LABS: AUTOMATED NEUTROPHIL # 6.7 TH/MM3 (1.8-7.7); BASOPHIL # 0.1 TH/MM3 (0-0.2); BASOPHIL % 1.3 % (0.0-2.0); EOSINOPHIL # 0.2 TH/MM3 (0-0.4); EOSINOPHIL % 2.2 % (0.0-4.0); HEMATOCRIT 28.6 % (35.0-46.0); HEMO FLAGS DIFF FINAL; LYMPH % 14.3 % (9.0-44.0); LYMPHOCYTE # 1.3 TH/MM3 (1.0-4.8); MEAN CELL VOLUME 99.6 FL (80.0-100.0); MEAN CORPUSCULAR HEMOGLOBIN 32.7 PG (27.0-34.0); MEAN CORPUSCULAR HGB CONC 32.8 % (32.0-36.0); MONO % 6.8 % (0.0-8.0); NEUT % 75.4 % (16.0-70.0); PLATELET COUNT 114 TH/MM3 (150-450); RED BLOOD COUNT 2.87 MIL/MM3 (4.00-5.30); RED CELL DISTRIBUTION WIDTH 18.9 % (11.6-17.2)
[2016-07-17 09:22] LABS: APTT (PATIENT) 37.3 SEC (24.3-30.1); INTERNATIONAL NORMALIZED RATIO 1.9 RATIO; PROTHROMBIN TIME - PATIENT 22.1 SEC (9.8-11.6)
[2016-07-17 09:37] LABS: ANION GAP 12 MEQ/L (5-15); BICARBONATE 17.6 MEQ/L (21.0-32.0); BLOOD UREA NITROGEN 25 MG/DL (7-18); CHLORIDE 109 MEQ/L (98-107); GLOMERULAR FILTRATION RATE 35 ML/MIN (>89); POTASSIUM 3.9 MEQ/L (3.5-5.1); SODIUM (NA) 139 MEQ/L (136-145)
[2016-07-17 09:41] LABS: ALKALINE PHOSPHATASE 143 U/L (45-117); ALT (GPT) 31 U/L (10-53); AST (GOT) 103 U/L (15-37); TOTAL BILIRUBIN ADULT 15.6 MG/DL (0.2-1.0)
[2016-07-17] MEDS ORDERED: ONDANSETRON HCL 4 MG/2 ML VIAL IV PUSH ONE (11:00)
[2016-07-17] MEDS ORDERED: MORPHINE SULFATE 4 MG/ML INJ IV PUSH ONE (11:00)
[2016-07-17] MEDS ORDERED: cefTRIAXone INJ 2,000 MG in SODIUM CHLORIDE 0.9% INJ 100 ML IV ONE (12:15)
--- NOTE | 2016-07-17 13:32 | PD ---
HPI Chief Complaint: GI Complaint Time Seen by Provider: 08:55 Travel History International Travel<30 days: No Contact w/Intl Traveler<30days: No Traveled to known affect area: No History of Present Illness HPI 41-year-old presents emergency department for evaluation of abdominal swelling as well as leg swelling. Patient was recently admitted and then discharged from our hospital earlier this month for acute liver failure. Patient does have a history of alcoholism. Patient states she's also been having some shortness of breath because she can feel the fluid pushing on her belly. She denies a history of fever denies nausea vomiting. Denies a history of ascites or abdominal paracentesis before. States symptoms been moderate and gradually worsening. 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) Diabetes: Yes Patient Takes Glucophage: No Diminished Hearing: No Genitourinary: No Musculoskeletal: No Neurologic: No Reproductive: No Respiratory: No Tetanus Vaccination: > 5 Years Influenza Vaccination: No ?: Not LMP: IRREGULAR : 3 Para: 3 Miscarriage: 0 : 0 Past Surgical History Abdominal Surgery: Yes (EX LAP) Section: Yes (x 3) Cholecystectomy: Yes Social History Alcohol Use: No Tobacco Use: No Substance Use: No Allergies-Medications (Allergen,Severity, Reaction): Coded Allergies: Morphine (Verified Adverse Reaction, Mild, Nausea/Vomiting, 07/17/16) Reported Meds & Prescriptions Reported Meds & Active Scripts Active Multivitamin Adults (Multiple Vitamins W/ Minerals) 1 Tab 1 Tab PO DAILY 30 Days Folate (Folic Acid) 1 Mg Tab 1 Mg PO DAILY 30 Days Vitamin B-1 (Thiamine HCl) 100 Mg Tab 100 Mg PO DAILY 30 Days Pentoxifylline ER (Pentoxifylline) 400 Mg Tab 400 Mg PO Q8HR 28 Days Pantoprazole (Pantoprazole Sodium) 40 Mg Tab 40 Mg PO DAILY@06 30 Days Lactulose Liq (Lactulose) 10 Gm/15 Ml Soln 30 Ml PO DAILY 14 Days Reported Water Pills (Wgldb-Mnl-Vorjbceqd-K Gluc-Cou) 1 Tab 1 Tab PO BID Review of Systems Except as stated in HPI: all other systems reviewed are Neg Physical Exam Narrative GENERAL: Well-developed well-nourished, no apparent distress. SKIN: Jaundiced HEAD: Atraumatic. Normocephalic. EYES: Pupils equal and round. Notable scleral icterus. No injection or drainage. ENT: No nasal bleeding or discharge. Mucous membranes pink and moist. NECK: Trachea midline. No JVD. CARDIOVASCULAR: Regular rate and rhythm. No murmur appreciated. RESPIRATORY: No accessory muscle use. Clear to auscultation. Breath sounds equal bilaterally. GASTROINTESTINAL: Abdomen soft, non-tender, moderately distended. Hepatic and splenic margins not palpable. Soft and nontender perhaps trivial peritoneal tenderness by percussion. No rebound tenderness. MUSCULOSKELETAL: No obvious deformities. No clubbing. No cyanosis. 2+ bilateral pitting edema lower extremity's.. NEUROLOGICAL: Awake and alert. No obvious cranial nerve deficits. Motor grossly within normal limits. Normal speech. PSYCHIATRIC: Appropriate mood and affect; insight and judgment normal. Data Data Last Documented VS Vital Signs Date Time Temp Pulse Resp B/P Pulse Ox O2 Delivery O2 Flow Rate FiO2 07/17/16 12:40 100 18 138/69 96 Room Air 07/17/16 08:33 98.3 Orders Complete Blood Count With Diff (07/17/16 08:41) Comprehensive Metabolic Panel (07/17/16 08:41) Lactic Acid (07/17/16 08:41) Prothrombin Time / Inr (Pt) (07/17/16 08:41) Act Partial Throm Time (Ptt) (07/17/16 08:41) Urinalysis - C+S If Indicated (07/17/16 08:41) Iv Access Insert/Monitor (07/17/16 08:41) Ecg Monitoring (07/17/16 08:41) Oximetry (07/17/16 08:41) Sodium Chloride 0.9% Flush (Ns Flush) (07/17/16 08:45) Ed Urine Pregnancytest Poc (07/17/16 08:41) Ammonia (07/17/16 08:41) Ed Poc Ultrasound (07/17/16 08:55) Us Guided Abd Paracentesis (07/17/16 ) Peritoneal Cell Count + Diff (07/17/16 09:16) Total Protein Peritoneal Fluid (07/17/16 09:16) Albumin, Peritoneal Fluid (07/17/16 09:16) Glucose, Peritoneal Fluid (07/17/16 09:16) Ldh, Peritoneal Fluid (07/17/16 09:16) Fluid Culture And Gram Stain (07/17/16 09:16) Cytology Request For Service (07/17/16 09:16) Ldh Serum (07/17/16 09:16) Morphine Inj (Morphine Inj) (07/17/16 11:00) Ondansetron Inj (Zofran Inj) (07/17/16 11:00) Blood Culture (07/17/16 12:05) Ceftriaxone Inj (Rocephin Inj) (07/17/16 12:15) Admit Order (Ed Use Only) (07/17/16 ) Labs Laboratory Tests Test 07/17/16 08:55 White Blood Count 9.0 TH/MM3 Red Blood Count 2.87 MIL/MM3 Hemoglobin 9.4 GM/DL Hematocrit 28.6 % Mean Corpuscular Volume 99.6 FL Mean Corpuscular Hemoglobin 32.7 PG Mean Corpuscular Hemoglobin 32.8 % Concent Red Cell Distribution Width 18.9 % Platelet Count 114 TH/MM3 Mean Platelet Volume 8.1 FL Neutrophils (%) (Auto) 75.4 % Lymphocytes (%) (Auto) 14.3 % Monocytes (%) (Auto) 6.8 % Eosinophils (%) (Auto) 2.2 % Basophils (%) (Auto) 1.3 % Neutrophils # (Auto) 6.7 TH/MM3 Lymphocytes # (Auto) 1.3 TH/MM3 Monocytes # (Auto) 0.6 TH/MM3 Eosinophils # (Auto) 0.2 TH/MM3 Basophils # (Auto) 0.1 TH/MM3 CBC Comment DIFF FINAL Differential Comment Prothrombin Time 22.1 SEC Prothromb Time International 1.9 RATIO Ratio Activated Partial 37.3 SEC Thromboplast Time Sodium Level 139 MEQ/L Potassium Level 3.9 MEQ/L Chloride Level 109 MEQ/L Carbon Dioxide Level 17.6 MEQ/L Anion Gap 12 MEQ/L Blood Urea Nitrogen 25 MG/DL Creatinine 1.63 MG/DL Estimat Glomerular Filtration 35 ML/MIN Rate Random Glucose 114 MG/DL Lactic Acid Level 2.0 mmol/L Calcium Level 8.0 MG/DL Total Bilirubin 15.6 MG/DL Aspartate Amino Transf 103 U/L (AST/SGOT) Alanine Aminotransferase 31 U/L (ALT/SGPT) Alkaline Phosphatase 143 U/L Ammonia 21 MCMOL/L Lactate Dehydrogenase 255 U/L Total Protein 6.4 GM/DL Albumin 1.9 GM/DL Lipase 479 U/L MDM Medical Decision Making Medical Screen Exam Complete: Yes Emergency Medical Condition: Yes Differential Diagnosis New onset ascites, anasarca, CHF, Narrative Course DIscussed with patient my concerns for new onset asciites. Patient not on water pills. Her albumin is quite low. Patient discussed with IR for US guided paracentesis. Laboratory workup ordered. Has been slated for drainage this afternoon. For time being rocephin ordered. Basic labs ordered fairly reassuring. DIscussed with family medicine residents for admission. Only mild SOB at this time, no indication for emergent large volume paracentesis. Diagnosis Primary Impression: Ascites Additional Impressions: Liver failure Qualified Code: K72.10 - Chronic liver failure without hepatic coma SOB (shortness of breath) Admitting Information Admitting Physician Requests: Admit Condition: Stable Maikel Deras MD July 17, 2016 13:31
--- NOTE | 2016-07-17 13:42 | HHI.HP ---
[facility] Service Family Medicine Primary Care Physician No Primary Care Physician Admission Diagnosis New Ascites, Liver failure Diagnoses: International Travel<30 Days: No Contact w/Intl Traveler<30days: No Known Affected Area: No History of Present Illness 41-year-old female with liver failure 2/2 alcohol use presents emergency department for evaluation of abdominal swelling, leg swelling and abdominal pain ongoing and worsening since last Sunday. -Admitted here earlier this month for acute liver failure. -Denies a history of ascites or abdominal paracentesis -Had lower extremity swelling in the past, but states it got better with her water pills -Tried taking her medications this past week but this did not help with the swelling. -History of alcoholism, quit drinking completely December 17, 2015, and states that she has not had any alcohol since this time -Complains of shortness of breath which she attributes to the fluid pushing on her belly -She reports on and off fevers over the last week. Last Sunday she had a temp of 102, had a fever again on Sunday and yesterday it was 100.2. She denies chest pain, nausea, or vomiting -Yellowing of her skin and her eyes has overall improved since previous admission. It is still present, but she says it is much improved compared to prior. 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 Denies having a history of any blood clots. -Was diagnosed with diabetes 2 years ago (unsure of type I or 2), but is not on any medications currently. Previously on metformin and glipizide, and says these were discontinued after being diagnosed with liver disease due to interactions with current medication. Checks glucose at home and it ranges 130- 180. Does not follow a diabetic diet, but states that she "does not eat much anyway". On 07/05/16 during prior admission EGD showed portal hypertension, no esophageal varices, and a hiatal hernia Patient's insurance, [place] Medicaid, is currently pending. She is awaiting an appointment with her primary care doctor to get a referral to see a time buyer locally. She has not yet established with a GI physician in [place]. (Citlali Abreu MD) Review of Systems Constitutional: COMPLAINS OF: Fever, DENIES: Chills, Change in appetite Ears, nose, mouth, throat: DENIES: Running Nose Respiratory: COMPLAINS OF: Shortness of breath, DENIES: Cough, Sputum production Cardiovascular: COMPLAINS OF: Lower Extremity Edema, DENIES: Chest pain Gastrointestinal: COMPLAINS OF: Abdominal pain, DENIES: Constipation, Diarrhea , Nausea, Vomiting Neurologic: DENIES: Headache Psychiatric: DENIES: Confusion (Citlali Abreu MD) Past Family Social History Past Medical History PMH: Diabetes, not on medication Liver cirrhosis, states at early stage PSx: Section x 3 Tubal ligation Cholecystectomy Appendectomy with exploratory laparotomy h/o Amniocentesis FH: Mother had diabetes, heart disease, ovarian can Unsure of father's past medical history Patient states all of the females in her family have diabetes She has 3 children and 3 stepchildren as well as 1 grandchild, all living and healthy. 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 After this time period had occasional alcohol use. Denies alcohol use since December 17, 2015. (Citlali Abreu MD) Allergies: Coded Allergies: Morphine (Verified Adverse Reaction, Mild, Nausea/Vomiting, 07/17/16) Physical Exam Vital Signs Vital Signs Date Time Temp Pulse Resp B/P Pulse Ox O2 Delivery O2 Flow Rate FiO2 07/17/16 12:40 100 18 138/69 96 Room Air 07/17/16 11:13 20 07/17/16 11:10 98 18 139/69 97 Room Air 07/17/16 08:33 98.3 101 17 150/81 99 Physical Exam GENERAL: Well-developed well-nourished, no apparent distress. SKIN: Jaundiced. Spider telangiectasias over the upper chest, back and face, and hands bilaterally. HEAD: Atraumatic. Normocephalic. EYES: Pupils equal and round. Notable scleral icterus. No injection or drainage. ENT: No nasal bleeding or discharge. Mucous membranes pink and moist. NECK: Trachea midline. CARDIOVASCULAR: Regular rate and rhythm. No murmur appreciated. RESPIRATORY: No accessory muscle use. Clear to auscultation. Breath sounds equal bilaterally. No wheezing, rhonchi or crackles. Speaking in full complete sentences without increased work of breathing. On room air. GASTROINTESTINAL: Positive bowel sounds. Abdomen soft, moderately distended, tender to palpation diffusely. No rebound tenderness, no guarding. MUSCULOSKELETAL: No obvious deformities. No clubbing. No cyanosis. 2+ bilateral pitting edema lower extremities to the upper thigh. NEUROLOGICAL: Awake and alert. No obvious cranial nerve deficits. Motor grossly within normal limits. Normal speech. PSYCHIATRIC: Appropriate mood and affect; insight and judgment normal. Laboratory Laboratory Tests Test 07/17/16 08:55 White Blood Count 9.0 Red Blood Count 2.87 Hemoglobin 9.4 Hematocrit 28.6 Mean Corpuscular Volume 99.6 Mean Corpuscular Hemoglobin 32.7 Mean Corpuscular Hemoglobin 32.8 Concent Red Cell Distribution Width 18.9 Platelet Count 114 Mean Platelet Volume 8.1 Neutrophils (%) (Auto) 75.4 Lymphocytes (%) (Auto) 14.3 Monocytes (%) (Auto) 6.8 Eosinophils (%) (Auto) 2.2 Basophils (%) (Auto) 1.3 Neutrophils # (Auto) 6.7 Lymphocytes # (Auto) 1.3 Monocytes # (Auto) 0.6 Eosinophils # (Auto) 0.2 Basophils # (Auto) 0.1 CBC Comment DIFF FINAL Differential Comment Prothrombin Time 22.1 Prothromb Time International 1.9 Ratio Activated Partial 37.3 Thromboplast Time Sodium Level 139 Potassium Level 3.9 Chloride Level 109 Carbon Dioxide Level 17.6 Anion Gap 12 Blood Urea Nitrogen 25 Creatinine 1.63 Estimat Glomerular Filtration 35 Rate Random Glucose 114 Lactic Acid Level 2.0 Calcium Level 8.0 Total Bilirubin 15.6 Aspartate Amino Transf 103 (AST/SGOT) Alanine Aminotransferase 31 (ALT/SGPT) Alkaline Phosphatase 143 Ammonia 21 Total Protein 6.4 Albumin 1.9 Date/Time Procedure Status Source Growth 07/17/16 12:15 Aerobic Blood Culture Received Blood Peripheral Pending 07/17/16 12:15 Anaerobic Blood Culture Received Blood Peripheral Pending (Citlali Abreu MD) Result Diagram: 07/17/1655 07/17/1655 Assessment and Plan Assessment and Plan 41-year-old female with history of heavy alcohol use and liver cirrhosis admitted for worsening abdominal distention with abdominal pain, fevers at home , worsening lower extremity edema, found to have ascites on abdominal ultrasound Code Status Full Discussed Condition With Will discuss with Dr. Simms (LoisCitlali stinson MD) Attending Attestation THIS CASE WAS DISCUSSED WITH THE RESIDENT PHYSICIAN. I HAVE REVIEWED THE RECORD AND AGREE WITH THE ABOVE NOTE AND PLAN OF CARE WAS DISCUSSED. I HAVE AUTHORIZED THE ORDER FOR PLACEMENT IN OUT-PATIENT OBSERVATION STATUS. (Moose Simms MD) Problem List: (1) Abdominal pain Status: Acute Plan: Worsening abdominal pain, abdominal distention, with on and off fevers since Sunday. [id number] ultrasound by ED physician showed ascites. Rocephin 2g x1 in ED given abdominal pain, fevers and ascites to cover for possible Spontaneous Bacterial Peritonitis. On exam, appears well. Afebrile. No leukocytosis. D/w ultrasound and they are currently performing the paracentesis, with about 3- 4 L estimated to be removed. They have sent the fluid for culture. Plan: * Consulted Gastroenterology * Diagnostic and therapeutic paracentesis ordered, results pending * Continue Rocephin 2g daily. Could also consider switching to Cefotaxime * Blood cultures pending * Morphine 2 mg IV every 2 hours when necessary (2) Liver failure Status: Chronic Plan: Admitted earlier this month, diagnosed with liver failure secondary to alcohol use. Was recommended to see gastroenterology and hematology as an outpatient. Due to pending insurance, patient says she has not yet seen these physicians. INR 1.9. Platelets 114. Hemoglobin stable at 9.4. Gastroccult on 07/04 was negative. No signs or symptoms of active bleeding. Total bilirubin is 15.6, increased from 2.0 on 07/05. Direct bilirubin was elevated to 8.0 07/02. Plan: * Continue home meds: Lactulose 30mL daily, Folic acid 1mg daily, Multivitamin daily, Thiamine 100mg PO daily (3) ZACHARY (acute kidney injury) Status: Acute Plan: Creatinine 1.63, elevated compared to prior 0.69. Will need to monitor closely for hepatorenal syndrome. Plan: * Consulted gastroenterology as above * Hold off on IV fluids at this time * Continue to monitor with daily labs (4) History of alcohol abuse Status: Chronic Plan: Prior history of heavy EtOH abuse. Denies alcohol use since December 17, 2015. Reports good family support as well as support from evangelical general accounting clerk. * Offered community resources, patient declines (5) Nutrition, metabolism, and development symptoms Status: Acute Plan: Diet: Healthy and Diabetic diet once paracentesis completed Electrolytes: Normal, continue to monitor. K+ normal Fluids: SLIV (6) Deep vein thrombosis (DVT) prophylaxis prescribed at discharge Status: Acute Plan: DVT prophylaxis: SCDs, ambulation. Avoid chemical prophylaxis with liver failure. GI prophylaxis: Protonix 40 mg by mouth daily (Citlali Abreu MD) Problem Qualifiers (1) Abdominal pain: Qualified Code: R10.9 - Abdominal pain, unspecified location (2) Liver failure: Qualified Code: K72.10 - Chronic liver failure without hepatic coma Citlali Abreu MD July 17, 2016 13:42 Moose Simms MD July 18, 2016 17:51 GI prophylaxis: Protonix 40 mg by mouth daily Problem Qualifiers (1) Abdominal pain: Qualified Code: R10.9 - Abdominal pain, unspecified location (2) Liver failure: Qualified Code: K72.10 - Chronic liver failure without hepatic coma Citlali Abreu MD July 17, 2016 13:42 (3) History of alcohol abuse Status: Chronic Plan: Prior history of heavy EtOH abuse, reports has not had any alcohol since November 2015. Reports good family support at home. (4) Nutrition, metabolism, and development symptoms Status: Acute (5) Deep vein thrombosis (DVT) prophylaxis prescribed at discharge Status: Acute Problem Qualifiers (1) Abdominal pain: Qualified Code: R10.9 - Abdominal pain, unspecified location (2) Liver failure: Qualified Code: K72.10 - Chronic liver failure without hepatic coma Citlali Abreu MD July 17, 2016 13:42 patient's liver failure. I spoke to Dr. Packer or and we discussed outpatient versus inpatient management. The patient has very limited resources and given her age it is reasonable to evaluate her in the hospital. She'll be placed in observation for GI evaluation. Ultrasound of the liver demonstrates likely hepatocellular disease. Physician Communication Physician Communication Discussed with Dr. Packer and Dr. Peoples (2) Liver failure Status: Chronic (3) History of alcohol abuse Status: Chronic (4) Nutrition, metabolism, and development symptoms Status: Acute (5) Deep vein thrombosis (DVT) prophylaxis prescribed at discharge Status: Acute Problem Qualifiers (1) Abdominal pain: Qualified Code: R10.9 - Abdominal pain, unspecified location (2) Liver failure: Qualified Code: K72.10 - Chronic liver failure without hepatic coma Citlali Abreu MD July 17, 2016 13:42
[2016-07-17] MEDS ORDERED: SODIUM CHLOR 0.45% 1000 ML INJ 1,000 ML IV SCH (14:28)
[2016-07-17] MEDS ORDERED: NALOXONE HCL 0.4 MG/ML AMP IV PRN (14:30)
[2016-07-17] MEDS ORDERED: ONDANSETRON HCL 4 MG/2 ML VIAL IVP PRN (14:30)
[2016-07-17] MEDS ORDERED: TEMAZEPAM 15 MG CAP PO PRN (14:30)
[2016-07-17] MEDS ORDERED: SENNOSIDES 8.6 MG TAB PO PRN (14:30)
--- NOTE | 2016-07-17 16:35 | PD.CONS ---
HPI History of Present Illness This is a 41 year old [lady] presented to ER for lower extremity edema, abdominal swelling from chest down, started last sunday. Initially her abdomen became large and painful to the point she had SOB, then her legs adn thighs began to swell. She just had paracentesis, 4 L removed and her abdominal discomfort is relieved. No n/v, blood in stool, tarry stool. She takes lactulose. She was here earlier in june, had EGD which found portal HTN but no varices. Denies recent drinking. Prior liver w/u neg for autoimmune cause, hepatitis. (Blanka Reynoso) PFSH Past Medical History DM cirrhosis Past Surgical History c section x 3 cholecystectomy ex laparotomy (Blanka Reynoso) Coded Allergies: Morphine (Verified Adverse Reaction, Mild, Nausea/Vomiting, 07/17/16) Medications Current Medications Medications (Trade) Dose Ordered Sig/Ric Route PRN Reason Start Time Stop Time Status Last Admin Dose Admin Sodium Chloride (NS Flush) 2 ml UNSCH PRN IV FLUSH FLUSH AFTER USING IV ACCESS 07/17/16 14:30 Sodium Chloride (NS Flush) 2 ml BID IV FLUSH 07/17/16 21:00 Ondansetron HCl (Zofran Inj) 4 mg Q6H PRN IVP NAUSEA OR VOMITING 07/17/16 14:30 Sennosides (Senokot) 17.2 mg Q12H PRN PO CONSTIPATION 07/17/16 14:30 Temazepam (Restoril) 15 mg HS PRN PO INSOMNIA 07/17/16 14:30 Naloxone HCl (Narcan Inj) 0.4 mg UNSCH PRN IV SEE LABEL COMMENTS 07/17/16 14:30 Morphine Sulfate (Morphine Inj) 2 mg Q2H PRN IV PAIN SCALE 6 TO 10 07/17/16 14:30 Pantoprazole Sodium (Protonix) 40 mg DAILY PO 07/18/16 09:00 Folic Acid (Folate) 1 mg DAILY PO 07/18/16 09:00 Lactulose (Lactulose Liq) 30 ml DAILY PO 07/18/16 09:00 Multivitamins/ Minerals Therapeutic (Theragran M Tab) 1 tab DAILY PO 07/18/16 09:00 Pentoxifylline (TRENtal SR) 400 mg Q8HR PO 07/17/16 22:00 Thiamine HCl 100 mg 100 mg DAILY PO 07/18/16 09:00 Ceftriaxone Sodium/Sodium Chloride (Rocephin Inj/NS Inj) 100 ml @ 200 mls/hr Q24H IV 07/18/16 09:00 Family History DM ovarian ca HTN Social History ETOH not currently, last drank 11/2015, prior heavy drinker no tobacco no drugs (Blanka Reynoso) Review of Systems Constitutional: COMPLAINS OF: Fever (3 x this week) Eyes: DENIES: Blurred vision Ears, nose, mouth, throat: DENIES: Hearing loss Respiratory: DENIES: Cough Cardiovascular: DENIES: Chest pain Gastrointestinal: COMPLAINS OF: Swelling of Abdomen, DENIES: Abdominal pain, Black stools, Bloody stools, Constipation, Diarrhea, Nausea, Vomiting Genitourinary: DENIES: Hematuria Musculoskeletal: DENIES: Joint pain Integumentary: COMPLAINS OF: Abnormal pigmentation, Jaundice Hematologic/lymphatic: COMPLAINS OF: Bruising Neurologic: DENIES: Abnormal gait Psychiatric: DENIES: Confusion (Blanka Reynoso) GI Exam Vitals I&O Vital Signs Date Time Temp Pulse Resp B/P Pulse Ox O2 Delivery O2 Flow Rate FiO2 07/17/16 16:20 97.5 90 16 117/60 95 07/17/16 16:14 97.0 92 16 126/62 92 07/17/16 14:44 97.0 91 18 126/71 96 07/17/16 14:30 98.1 91 20 127/75 97 07/17/16 14:14 98 16 133/70 96 Room Air 07/17/16 12:40 100 18 138/69 96 Room Air 07/17/16 11:13 20 07/17/16 11:10 98 18 139/69 97 Room Air 07/17/16 08:33 98.3 101 17 150/81 99 Laboratory Test 07/17/16 08:55 White Blood Count 9.0 TH/MM3 Red Blood Count 2.87 MIL/MM3 Hemoglobin 9.4 GM/DL Hematocrit 28.6 % Mean Corpuscular Volume 99.6 FL Mean Corpuscular Hemoglobin 32.7 PG Mean Corpuscular Hemoglobin 32.8 % Concent Red Cell Distribution Width 18.9 % Platelet Count 114 TH/MM3 Mean Platelet Volume 8.1 FL Neutrophils (%) (Auto) 75.4 % Lymphocytes (%) (Auto) 14.3 % Monocytes (%) (Auto) 6.8 % Eosinophils (%) (Auto) 2.2 % Basophils (%) (Auto) 1.3 % Neutrophils # (Auto) 6.7 TH/MM3 Lymphocytes # (Auto) 1.3 TH/MM3 Monocytes # (Auto) 0.6 TH/MM3 Eosinophils # (Auto) 0.2 TH/MM3 Basophils # (Auto) 0.1 TH/MM3 CBC Comment DIFF FINAL Differential Comment Prothrombin Time 22.1 SEC Prothromb Time International 1.9 RATIO Ratio Activated Partial 37.3 SEC Thromboplast Time Sodium Level 139 MEQ/L Potassium Level 3.9 MEQ/L Chloride Level 109 MEQ/L Carbon Dioxide Level 17.6 MEQ/L Anion Gap 12 MEQ/L Blood Urea Nitrogen 25 MG/DL Creatinine 1.63 MG/DL Estimat Glomerular Filtration 35 ML/MIN Rate Random Glucose 114 MG/DL Lactic Acid Level 2.0 mmol/L Calcium Level 8.0 MG/DL Total Bilirubin 15.6 MG/DL Aspartate Amino Transf 103 U/L (AST/SGOT) Alanine Aminotransferase 31 U/L (ALT/SGPT) Alkaline Phosphatase 143 U/L Ammonia 21 MCMOL/L Lactate Dehydrogenase 255 U/L Total Protein 6.4 GM/DL Albumin 1.9 GM/DL Lipase 479 U/L Date/Time Procedure Status Source Growth 07/17/16 12:15 Aerobic Blood Culture Received Blood Peripheral Pending 07/17/16 12:15 Anaerobic Blood Culture Received Blood Peripheral Pending Physical Examination HEENT: EOMI; normocephalic; atraumatic; + icterus CHEST: CTA CARDIAC: RRR, + murmur ABDOMEN: Soft, nondistended, nontender; no hepatosplenomegaly; bowel sounds are present in all four quadrants. EXTREMITIES: No clubbing, cyanosis, +1 pitting edema BLE. SKIN: spider angioma; + jaundice. 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 (Blanka Reynoso BACKPACKERS MANAGER) Assessment and Plan Plan ASSESSMENT - jaundice, elev LFTs, anasarca - onset 5 d ago. s/p paracentesis with 4L removed, pt has some relief abd discomfort. hx cirrhosis prob secondary to ETOH , was here earlier this month and had EGD 5-7-17 found portal HTN, no varices; US liver --> liver enlarged to 20cm suspected hepatocellular dz, splenomegaly 18.6 cm, no free fluid, cholecystectomy. Prev liver w/u neg for hepatitis, autoimmune dz. pt denies recent ETOH. lactulose, pentoxifylline. PLAN - low sodium diet - continue lactulose - continue pentoxifylline - monitor labwork - supportive care This pt seen by myself and Dr Stover and this note is written on his behalf. ( Blanka Reynoso) Physician Comments Patient seen and examined Agree with above Continue with current supportive care Monitor labs Renal function abnormal probable acute renal failure patient also noted to be with a low albumin level probably secondary to cirrhosis Cirrhosis of unclear etiology with significant hepatomegaly Patient also noted to be coagulopathy I will replace albumin We'll hold off on diuretics at this point until we see some improvement in renal function Considering liver biopsy once coagulopathy is improved Will give a trial of vitamin K she possibly may need fresh frozen plasma if we were to pursue a liver biopsy (Rick Stover MD) Blanka Reynoso July 17, 2016 16:35 Rick Stover MD July 17, 2016 19:33
--- NOTE | 2016-07-17 17:09 | RADRPT ---
EXAM DATE/TIME: 07/17/2016 14:37 [facility] COMPARISON: No previous studies available for comparison. INDICATIONS : Ascites. MEDICAL HISTORY : Diabetes. PTSD. Liver failure. Kidney stones. ETOH abuse. SURGICAL HISTORY : Cholecystectomy section. Laparoscopy. ENCOUNTER: Initial ACUITY: 1 day PAIN SCORE: 0/10 LOCATION: Right lower quadrant FLUID: Total volume of 4000 cc of clear, yellow fluid was removed. Fluid was sent to lab for ordered studies. Post procedure scanning reveals no hematoma or other complication. TECHNIQUE: 1. Ultrasound guidance for abdominal paracentesis. 2. Paracentesis. The risks, benefits, and alternatives to ultrasound guided paracentesis were explained to the patient in detail including the risk of bleeding and infection. Written and verbal informed consent was obt ained. With the patient on the ultrasound table, ultrasound imaging was used to select the most appropriate approach for paracentesis. Overlying skin was prepped and draped in the usual sterile fashion and wi th a local anesthetic, a dermatotomy was made with an 11 blade scalpel. A 6 [place] [id number] ca theter was introduced into the peritoneal cavity and fluid was collected. The patient tolerated the procedure well and left the ultrasound suite in stable condition. CONCLUSION: Uncomplicated ultrasound guided paracentesis. Michoacano Hernandez MD on July 17, 2016 at 16:32 Board Certified Radiologist. This report was verified electronically.
[2016-07-17 19:11] LABS: PERITONEAL EOS 1 %; PERITONEAL LYMPHS 53 %; PERITONEAL MESOTHELIAL 3 %; PERITONEAL MONOS 29 %; PERITONEAL POLYS(SEGS) 8 %; PERITONEAL WBC 28 /MM3 (0-10)
[2016-07-17 19:12] LABS: PERITONEAL HISTIOCYTES 6 %
[2016-07-17] MEDS ORDERED: PHYTONADIONE 10 MG/ML VIAL SQ ONE (20:00)
[2016-07-17] MEDS ORDERED: SODIUM CHLORIDE 0.9% FLUSH 10 ML FLUSH IV FLUSH SCH (21:00)
[2016-07-17] MEDS ORDERED: [UNRECOGNIZED DRUG - OTHER] PO SCH (21:00)
[2016-07-17] MEDS: PENTOXIFYLLINE 400 MG CONTROLLED RELEASE TAB PO SCH (21:29)
[2016-07-17] MEDS: ALBUMIN HUMAN 25% 25 GM/100 ML BAGP IV SCH (21:31)
[2016-07-17] MEDS: SODIUM CHLORIDE 0.9% FLUSH 10 ML FLUSH IV FLUSH SCH (21:32)
[2016-07-17] MEDS: MORPHINE SULFATE 4 MG/ML INJ IV PRN (22:04)
[2016-07-18 00:08] VITALS: BP 132/69; PULSE 95; RESP 17; TEMP 98.5; O2SAT 98
[2016-07-18 04:16] VITALS: BP 126/65; PULSE 93; RESP 16; TEMP 97.8; O2SAT 98
[2016-07-18] MEDS: MORPHINE SULFATE 4 MG/ML INJ IV PRN ×4 (05:14→20:18)
[2016-07-18] MEDS: PENTOXIFYLLINE 400 MG CONTROLLED RELEASE TAB PO SCH ×3 (05:14→20:17)
[2016-07-18] MEDS: ALBUMIN HUMAN 25% 25 GM/100 ML BAGP IV SCH ×3 (05:14→20:17)
[2016-07-18 07:22] VITALS: BP 131/60; PULSE 88; RESP 21; TEMP 97.5; O2SAT 97
[2016-07-18 07:23] LABS: BASOPHIL # 0.1 TH/MM3 (0-0.2); BASOPHIL % 1.4 % (0.0-2.0); EOSINOPHIL # 0.2 TH/MM3 (0-0.4); EOSINOPHIL % 2.1 % (0.0-4.0); HEMATOCRIT 24.3 % (35.0-46.0); HEMO FLAGS DIFF FINAL; LYMPHOCYTE # 0.8 TH/MM3 (1.0-4.8); MEAN CELL VOLUME 99.7 FL (80.0-100.0); MEAN CORPUSCULAR HEMOGLOBIN 34.1 PG (27.0-34.0); MEAN CORPUSCULAR HGB CONC 34.2 % (32.0-36.0); MONO % 6.1 % (0.0-8.0); NEUT % 79.4 % (16.0-70.0); PLATELET COUNT 102 TH/MM3 (150-450); RED BLOOD COUNT 2.44 MIL/MM3 (4.00-5.30); RED CELL DISTRIBUTION WIDTH 19.2 % (11.6-17.2); WHITE BLOOD COUNT 7.6 TH/MM3 (4.0-11.0)
[2016-07-18 07:32] LABS: INTERNATIONAL NORMALIZED RATIO 2.2 RATIO; PROTHROMBIN TIME - PATIENT 24.8 SEC (9.8-11.6)
[2016-07-18 07:48] VITALS: PULSE 90
--- NOTE | 2016-07-18 08:03 | HHI.FPPN ---
Subjective Remarks FM Attending Note: Patient seen and examined. S: Chart and all resident physician notes reviewed. In summary this is a 41 year old female who was admitted with an admission diagnosis of New Ascites, Liver Failure. This patient had a h/o alcoholic liver disease for which she completely stopped alcohol intake last November. Hospitalized early June with jaundice thought to be due to alcoholic liver disease. Presented at this time with new onset ascites and LE edema. Mild abdominal pain. Did have some low grade temps prior to arrival at the hospital. No SOB. Previous hepatitis profile is negative. Since admission has undergone a paracentesis with fluid not showing signifcant leukocytes. Patient notes that abdominal distention this AM is almost to the degree as it was when she presented pirior to the paracentesis. Objective Vitals Vital Signs Date Time Temp Pulse Resp B/P Pulse Ox O2 Delivery O2 Flow Rate FiO2 07/18/16 07:48 90 07/18/16 07:22 97.5 88 21 131/60 97 07/18/16 04:16 97.8 93 16 126/65 98 07/18/16 00:08 98.5 95 17 132/69 98 07/17/16 21:00 96 07/17/16 20:26 98.0 92 18 125/65 97 07/17/16 16:20 97.5 90 16 117/60 95 07/17/16 16:14 97.0 92 16 126/62 92 07/17/16 14:44 97.0 91 18 126/71 96 07/17/16 14:30 98.1 91 20 127/75 97 07/17/16 14:14 98 16 133/70 96 Room Air 07/17/16 12:40 100 18 138/69 96 Room Air 07/17/16 11:13 20 07/17/16 11:10 98 18 139/69 97 Room Air 07/17/16 08:33 98.3 101 17 150/81 99 I/O 07/17/16 07/17/16 07/17/16 07/18/16 07/18/16 07/18/16 06:59 14:59 22:59 06:59 14:59 22:59 Intake Total 100 ml 100 ml Balance 100 ml 100 ml Intake IV Total 100 ml 100 ml Result Diagram: 07/18/16 0618 07/17/16 0855 Other Results Item Value Date Time Total Bilirubin 15.6 MG/DL H 07/17/16 0855 Aspartate Amino Transf (AST/SGOT) 103 U/L H 07/17/16 0855 Alanine Aminotransferase (ALT/SGPT) 31 U/L 07/17/16 0855 Alkaline Phosphatase 143 U/L H 07/17/16 0855 Lactate Dehydrogenase 255 U/L H 07/17/16 0855 Lipase 479 U/L H 07/17/16 0855 Lipase 313 U/L 07/18/16 0618 Peritoneal Fluid WBC 28 /MM3 H 07/17/16 1530 Peritoneal Fluid RBC 614 /MM3 H 07/17/16 1530 Peritoneal Fluid Neutrophils 8 % 07/17/16 1530 Peritoneal Fluid Lymphocytes 53 % 07/17/16 1530 Peritoneal Fluid Monocytes 29 % 07/17/16 1530 Peritoneal Fluid Eosinophils 1 % 07/17/16 1530 Peritoneal Fluid Mesothelial Cells 3 % 07/17/16 1530 Imaging Last 48 hours Impressions Cyst Biopsy Asp-Paracentesis US 07/17/16 0000 Signed Impressions: Service Date/Time: Sunday, July 17, 2016 14:37 - CONCLUSION: Uncomplicated ultrasound guided paracentesis. Michoacano Hernandez MD Objective Remarks O. CONSTITUTIONAL/GEN: normally nourished, in NAD. LUNGS: clear A-P, respiratory effort is normal. CARDIOVASCULAR: RR without murmur or gallop. 1+ edema of LE's. GI/ABD: ascited without masses or palpable megaly. Mildly tender to direct palpation. No guarding or rebound. NEURO: No focal deficits. SKIN: color is jaundiced. MUSC: back is normal in appearance. Extremities are normal in appearance. PSYCH/MENTAL STATUS: Alert and oriented x 3. A/P Assessment and Plan 41-year-old female with history of heavy alcohol use and liver cirrhosis admitted for worsening abdominal distention with abdominal pain, fevers at home , worsening lower extremity edema, found to have ascites on abdominal ultrasound Problem List: (1) Abdominal pain Status: Acute Plan: Worsening abdominal pain, abdominal distention, with on and off fevers since Sunday. [id number]-[id number] ultrasound by ED physician showed ascites. Rocephin 2g x1 in ED given abdominal pain, fevers and ascites to cover for possible Spontaneous Bacterial Peritonitis. On exam, appears well. Afebrile. No leukocytosis. D/w ultrasound and they are currently performing the paracentesis, with about 3- 4 L estimated to be removed. They have sent the fluid for culture. Plan: * Consulted Gastroenterology * Diagnostic and therapeutic paracentesis ordered, results pending * Continue Rocephin 2g daily. Could also consider switching to Cefotaxime * Blood cultures pending * Morphine 2 mg IV every 2 hours when necessary 07/18/16 No fever or significant leukocytosis. Paracentesis fluid NOT suggestive of infection. (2) Liver failure Status: Chronic Plan: Admitted earlier this month, diagnosed with liver failure secondary to alcohol use. Was recommended to see gastroenterology and hematology as an outpatient. Due to pending insurance, patient says she has not yet seen these physicians. INR 1.9. Platelets 114. Hemoglobin stable at 9.4. Gastroccult on 07/04 was negative. No signs or symptoms of active bleeding. Total bilirubin is 15.6, increased from 2.0 on 07/05. Direct bilirubin was elevated to 8.0 07/02. Plan: * Continue home meds: Lactulose 30mL daily, Folic acid 1mg daily, Multivitamin daily, Thiamine 100mg PO daily 07/18/16 Most likely alcoholic liver disease. Somewhat unusual that jaundice and ascites would occur now and last alcohol use was November. Will start spironolactone and furosemide for medical management of ascites/edema. (3) ZACHARY (acute kidney injury) Status: Acute Plan: Creatinine 1.63, elevated compared to prior 0.69. Will need to monitor closely for hepatorenal syndrome. Plan: * Consulted gastroenterology as above * Hold off on IV fluids at this time * Continue to monitor with daily labs 07/18/16 Renal function is improving. (4) History of alcohol abuse Status: Chronic Plan: Prior history of heavy EtOH abuse. Denies alcohol use since December 17, 2015. 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 * Offered community resources, patient declines (5) Nutrition, metabolism, and development symptoms Status: Acute Plan: Diet: Healthy and Diabetic diet once paracentesis completed Electrolytes: Normal, continue to monitor. K+ normal Fluids: SLIV (6) Deep vein thrombosis (DVT) prophylaxis prescribed at discharge Status: Acute Plan: DVT prophylaxis: SCDs, ambulation. Avoid chemical prophylaxis with liver failure. GI prophylaxis: Protonix 40 mg by mouth daily Problem Qualifiers (1) Abdominal pain: Qualified Code: R10.9 - Abdominal pain, unspecified location (2) Liver failure: Qualified Code: K72.10 - Chronic liver failure without hepatic coma Moose Simms MD July 18, 2016 08:03
[2016-07-18 08:05] LABS: ALKALINE PHOSPHATASE 113 U/L (45-117); ALT (GPT) 25 U/L (10-53); ANION GAP 9 MEQ/L (5-15); AST (GOT) 88 U/L (15-37); BLOOD UREA NITROGEN 26 MG/DL (7-18); CHLORIDE 106 MEQ/L (98-107); GLOMERULAR FILTRATION RATE 65 ML/MIN (>89); POTASSIUM 3.9 MEQ/L (3.5-5.1); SODIUM (NA) 137 MEQ/L (136-145); TOTAL BILIRUBIN ADULT 15.3 MG/DL (0.2-1.0)
[2016-07-18] MEDS ORDERED: cefTRIAXone INJ 1,000 MG in SODIUM CHLORIDE 0.9% INJ 100 ML IV SCH (09:00)
[2016-07-18] MEDS: PANTOPRAZOLE SOD 40 MG DELAYED RELEASE TAB PO SCH (09:32)
[2016-07-18] MEDS: MULTIVITAMINS/MINERALS THERAPEUTIC TAB PO SCH (09:32)
[2016-07-18] MEDS: FOLIC ACID 1 MG TAB PO SCH (09:32)
[2016-07-18] MEDS: SODIUM CHLORIDE 0.9% FLUSH 10 ML FLUSH IV FLUSH SCH ×2 (09:32→20:17)
[2016-07-18] MEDS: LACTULOSE SYRUP 20 GM/30 ML CUP PO SCH (09:32)
[2016-07-18] MEDS: THIAMINE HCL 100 MG TAB PO SCH (09:32)
[2016-07-18] MEDS ORDERED: ACETAMIN 325 MG/BUTALBITAL 50 MG/CAFFEINE 40 MG TAB PO ONE (10:30)
[2016-07-18 11:16] VITALS: BP 134/67; PULSE 93; RESP 20; TEMP 97.8; O2SAT 97
[2016-07-18] MEDS: FUROSEMIDE 20 MG TAB PO SCH (11:38)
[2016-07-18] MEDS: SPIRONOLACTONE 25 MG TAB PO SCH (11:38)
[2016-07-18] MEDS ORDERED: cefTRIAXone INJ 2,000 MG in SODIUM CHLORIDE 0.9% INJ 100 ML IV SCH (12:00)
[2016-07-18 13:05] LABS: HDL CHOLESTEROL 17.4 MG/DL (40.0-60.0)
--- NOTE | 2016-07-18 14:42 | HHI.GIFU ---
Subjective Remarks Pt resting comfortably in bed. She c/o of return of abdominal swelling. Still with BLE edema. No n/v but she is not able to eat as much b/c she feel so much pressure in her abd. (Blanka Reynoso) Objective Vitals I&O Vital Signs Date Time Temp Pulse Resp B/P Pulse Ox O2 Delivery O2 Flow Rate FiO2 07/18/16 11:16 97.8 93 20 134/67 97 07/18/16 07:48 90 07/18/16 07:22 97.5 88 21 131/60 97 07/18/16 04:16 97.8 93 16 126/65 98 07/18/16 00:08 98.5 95 17 132/69 98 07/17/16 21:00 96 07/17/16 20:26 98.0 92 18 125/65 97 07/17/16 16:20 97.5 90 16 117/60 95 07/17/16 16:14 97.0 92 16 126/62 92 07/17/16 14:44 97.0 91 18 126/71 96 I/O 07/17/16 07/17/16 07/17/16 07/18/16 07/18/16 07/18/16 06:59 14:59 22:59 06:59 14:59 22:59 Intake Total 100 ml 100 ml Balance 100 ml 100 ml Intake IV Total 100 ml 100 ml Laboratory Laboratory Tests Test 07/17/16 07/18/16 15:30 06:18 Peritoneal Fluid WBC 28 Peritoneal Fluid RBC 614 Peritoneal Fluid Neutrophils 8 Peritoneal Fluid Lymphocytes 53 Peritoneal Fluid Monocytes 29 Peritoneal Fluid Eosinophils 1 Peritoneal Fluid Mesothelial 3 Cells Peritoneal Fluid Histiocytes 6 Peritoneal Fluid Total Protein 0.4 Peritoneal Fluid Albumin 0.1 Peritoneal Fluid LDH 39 Peritoneal Fluid Glucose 105 White Blood Count 7.6 Red Blood Count 2.44 Hemoglobin 8.3 Hematocrit 24.3 Mean Corpuscular Volume 99.7 Mean Corpuscular Hemoglobin 34.1 Mean Corpuscular Hemoglobin 34.2 Concent Red Cell Distribution Width 19.2 Platelet Count 102 Mean Platelet Volume 7.9 Neutrophils (%) (Auto) 79.4 Lymphocytes (%) (Auto) 11.0 Monocytes (%) (Auto) 6.1 Eosinophils (%) (Auto) 2.1 Basophils (%) (Auto) 1.4 Neutrophils # (Auto) 6.0 Lymphocytes # (Auto) 0.8 Monocytes # (Auto) 0.5 Eosinophils # (Auto) 0.2 Basophils # (Auto) 0.1 CBC Comment DIFF FINAL Differential Comment Prothrombin Time 24.8 Prothromb Time International 2.2 Ratio Sodium Level 137 Potassium Level 3.9 Chloride Level 106 Carbon Dioxide Level 22.0 Anion Gap 9 Blood Urea Nitrogen 26 Creatinine 0.95 Estimat Glomerular Filtration 65 Rate Random Glucose 106 Calcium Level 8.1 Total Bilirubin 15.3 Aspartate Amino Transf 88 (AST/SGOT) Alanine Aminotransferase 25 (ALT/SGPT) Alkaline Phosphatase 113 Total Protein 5.8 Albumin 2.3 Triglycerides Level 155 Cholesterol Level 72 LDL Cholesterol 24 HDL Cholesterol 17.4 Cholesterol/HDL Ratio 4.13 Lipase 313 Date/Time Procedure Status Source Growth 07/17/16 15:30 Gram Stain - Final Resulted Fluid Peritoneal Fluid 07/17/16 15:30 Body Fluid Culture - Preliminary Resulted Fluid Peritoneal Fluid NO GROWTH IN 24 HOURS. 07/17/16 12:15 Aerobic Blood Culture - Preliminary Resulted Blood Peripheral NO GROWTH IN 1 DAY 07/17/16 12:15 Anaerobic Blood Culture - Preliminary Resulted Blood Peripheral NO GROWTH IN 1 DAY Imaging Last Impressions Cyst Biopsy Asp-Paracentesis US 07/17/16 0000 Signed Impressions: Service Date/Time: Sunday, July 17, 2016 14:37 - CONCLUSION: Uncomplicated ultrasound guided paracentesis. Michoacano Hernandez MD Physical Exam HEENT: Pupils round and reactive to light; normocephalic; atraumatic; +icterus. CHEST: CTA CARDIAC: RRR, + murmur ABDOMEN: somewhat firm, distended, dull to percussion, mild diffuse TTp; bowel sounds are present in all four quadrants. EXTREMITIES: No clubbing, cyanosis, or edema. 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 (Blanka ReynosoP) Assessment and Plan Plan ASSESSMENT - jaundice, elev LFTs, anasarca - onset 5 d ago. s/p paracentesis with 4L removed. Still distended. hx cirrhosis likely secondary to ETOH, was here earlier this month and had EGD 07-02-16 found portal HTN, no varices; US liver --> liver enlarged to 20cm suspected hepatocellular dz, splenomegaly 18.6 cm, no free fluid, cholecystectomy. Prev liver w/u neg for hepatitis, autoimmune dz. pt denies recent ETOH. lactulose, pentoxifylline. PLAN - 100mg spironolactone - low sodium diet - continue lactulose - continue pentoxifylline - monitor labwork - supportive care This pt seen by myself and Dr Stover and this note is written on his behalf. ( Blanka Reynoso) Physician Comments Patient seen and examined Agree with above Continue with current supportive care Monitor labs Patient with what appears to be acute alcoholic hepatitis Continue with albumin IV Would recommend spironolactone 100 mg daily Would recommend low-salt diet And would limit IV fluids but not necessarily oral intake (Rick Stover MD) Blanka Reynoso July 18, 2016 14:42 Rick Stover MD July 18, 2016 19:11
[2016-07-18 15:11] VITALS: BP 133/65; PULSE 95; RESP 20; TEMP 97.8; O2SAT 96
[2016-07-19] VITALS (9 sets, daily range): BP systolic 111–139; BP diastolic 59–71; PULSE 83–125; RESP 18–20; TEMP 97.4–98.5; O2SAT 94–97
[2016-07-19] MEDS: MORPHINE SULFATE 4 MG/ML INJ IV PRN ×7 (01:27→23:54)
[2016-07-19] MEDS: ALBUMIN HUMAN 25% 25 GM/100 ML BAGP IV SCH ×3 (04:23→20:22)
[2016-07-19] MEDS: PENTOXIFYLLINE 400 MG CONTROLLED RELEASE TAB PO SCH ×3 (06:21→20:21)
[2016-07-19 07:44] LABS: HEMATOCRIT 23.5 % (35.0-46.0); MEAN CELL VOLUME 98.7 FL (80.0-100.0); MEAN CORPUSCULAR HEMOGLOBIN 33.9 PG (27.0-34.0); MEAN CORPUSCULAR HGB CONC 34.4 % (32.0-36.0); PLATELET COUNT 88 TH/MM3 (150-450); RED BLOOD COUNT 2.38 MIL/MM3 (4.00-5.30); RED CELL DISTRIBUTION WIDTH 18.6 % (11.6-17.2); WHITE BLOOD COUNT 6.9 TH/MM3 (4.0-11.0)
[2016-07-19 07:49] LABS: REVIEW FLAG FINAL
[2016-07-19 08:25] LABS: ANION GAP 10 MEQ/L (5-15); AST (GOT) 81 U/L (15-37); BICARBONATE 22.5 MEQ/L (21.0-32.0); BLOOD UREA NITROGEN 18 MG/DL (7-18); CHLORIDE 107 MEQ/L (98-107); GLOMERULAR FILTRATION RATE 92 ML/MIN (>89); POTASSIUM 3.9 MEQ/L (3.5-5.1); SODIUM (NA) 139 MEQ/L (136-145)
[2016-07-19 08:34] LABS: ALKALINE PHOSPHATASE 98 U/L (45-117); ALT (GPT) 21 U/L (10-53)
[2016-07-19 08:35] LABS: TOTAL BILIRUBIN ADULT 14.5 MG/DL (0.2-1.0)
--- NOTE | 2016-07-19 09:26 | HHI.FPPN ---
Subjective Remarks Patient seen and examined this morning. Afebrile vital signs stable. She reports that her ascites is worsening once more and that her belly pain is also worsening. She was started on Lasix and spironolactone yesterday and thinks that they have helped her some slightly. She's been told by GI that they will attempt another paracentesis later today. Informed her that the fluid from the ascites as well as the cultures from the ascites and blood cultures are not showing any signs of infection. She is very happy to hear this. Otherwise she is doing well and has no other complaints. Endorses: Swelling of the abdomen, ascites, abdominal pain, mild lower extremity edema Denies: Fever, chills, nausea, vomiting, shortness of breath, chest pain, headache, calf pain (Garry Benson MD R2) Objective Vitals Vital Signs Date Time Temp Pulse Resp B/P Pulse Ox O2 Delivery O2 Flow Rate FiO2 07/19/16 08:00 97.4 84 20 121/61 97 07/19/16 04:00 97.7 83 18 125/61 95 07/19/16 00:19 97.8 94 18 122/59 95 07/19/16 00:00 97.6 88 18 128/68 94 07/18/16 15:11 97.8 95 20 133/65 96 07/18/16 11:16 97.8 93 20 134/67 97 I/O 07/18/16 07/18/16 07/18/16 07/19/16 07/19/16 07/19/16 07:00 15:00 23:00 07:00 15:00 23:00 Intake Total 100 ml 240 ml Balance 100 ml 240 ml Intake Oral 240 ml IV Total 100 ml # Voids 1 # Bowel Movements 0 (Garry Benson MD R2) Result Diagram: 07/19/16 0642 07/19/16 0642 Imaging Last Impressions Cyst Biopsy Asp-Paracentesis US 07/17/16 0000 Signed Impressions: Service Date/Time: Sunday, July 17, 2016 14:37 - CONCLUSION: Uncomplicated ultrasound guided paracentesis. Michoacano Hernandez MD Objective Remarks O. CONSTITUTIONAL/GEN: normally nourished, in NAD. LUNGS: clear A-P, respiratory effort is normal. CARDIOVASCULAR: RR without murmur or gallop. 1+ edema of LE's. GI/ABD: ascited without masses or palpable megaly. Mildly tender to direct palpation. No guarding or rebound. NEURO: No focal deficits. SKIN: color is jaundiced. MUSC: back is normal in appearance. Extremities are normal in appearance. PSYCH/MENTAL STATUS: Alert and oriented x 3. Procedures Paracentesis Medications and IVs Current Medications Medications (Trade) Dose Ordered Sig/Ric Route Start Time Stop Time Status Last Admin (NS Flush) 2 ml UNSCH PRN IV FLUSH 07/17/16 14:30 (NS Flush) 2 ml BID IV FLUSH 07/17/16 21:00 07/18/16 20:17 (Zofran Inj) 4 mg Q6H PRN IVP 07/17/16 14:30 (Senokot) 17.2 mg Q12H PRN PO 07/17/16 14:30 (Restoril) 15 mg HS PRN PO 07/17/16 14:30 (Narcan Inj) 0.4 mg UNSCH PRN IV 07/17/16 14:30 (Morphine Inj) 2 mg Q2H PRN IV 07/17/16 14:30 07/19/16 01:27 (Protonix) 40 mg DAILY PO 07/18/16 09:00 07/18/16 09:32 (Folate) 1 mg DAILY PO 07/18/16 09:00 07/18/16 09:32 (Lactulose Liq) 30 ml DAILY PO 07/18/16 09:00 07/18/16 09:32 (Theragran M Tab) 1 tab DAILY PO 07/18/16 09:00 07/18/16 09:32 (TRENtal SR) 400 mg Q8HR PO 07/17/16 22:00 07/19/16 06:21 Thiamine HCl 100 mg 100 mg DAILY PO 07/18/16 09:00 07/18/16 09:32 (Rocephin Inj/NS Inj) 100 ml @ 200 mls/hr Q24H IV 07/18/16 12:00 07/19/16 12:00 07/18/16 12:13 (Albumin 25% Inj) 25 gm Q8H IV 07/17/16 20:00 07/20/16 19:59 07/19/16 04:23 (Aldactone) 25 mg DAILY PO 07/18/16 11:15 07/18/16 11:38 (Lasix) 20 mg DAILY PO 07/18/16 11:15 07/18/16 11:38 (Garry Benson MD R2) A/P Assessment and Plan 41-year-old female with history of heavy alcohol use and liver cirrhosis admitted for worsening abdominal distention with abdominal pain, fevers at home , worsening lower extremity edema, found to have ascites on abdominal ultrasound. Status post paracentesis. wdw: Dr. Simms Discharge Planning Pending improvement of ascites and GIs recommendations (Garry Benson MD R2) Attending Attestation Case reviewed and discussed with the resident team. Agree with plan of care as discussed with me and documented in the resident note. (Moose Simms MD) Problem List: (1) Ascites Status: Acute Plan: Status post paracentesis. Patient reports plans for second attempt at paracentesis later today. Current ascites fluid and ascites culture is not showing any signs of SBP On exam, appears well. Afebrile. No leukocytosis. Plan: * Consulted Gastroenterology * Diagnostic and therapeutic paracentesis performed: PMN equal to 8 * DC rocephin as there is no sign of SBP at this time * Blood cultures no growth to date 2 * Morphine 2 mg IV every 2 hours when necessary (2) Liver failure Status: Chronic Plan: Liver failure due to acute alcohol hepatitis Plan: * Continue home meds: Lactulose 30mL daily, Folic acid 1mg daily, Multivitamin daily, Thiamine 100mg PO daily * Spironolactone 25 mg daily * Lasix 20 mg daily * Pentoxifylline 400 mg every 8 hours. (3) ZACHARY (acute kidney injury) Status: Resolved Plan: Resolved BUN: 18, creatinine: 0.01 Plan: * Consulted gastroenterology as above * Continue to monitor with daily labs (4) History of alcohol abuse Status: Chronic Plan: Prior history of heavy EtOH abuse. Denies alcohol use since December 17, 2015. Reports good family support as well as support from buddhism layout inspector. * Offered community resources, patient declines * Rally pack (5) Nutrition, metabolism, and development symptoms Status: Acute Plan: Diet: Healthy and Diabetic diet once paracentesis completed Electrolytes: Normal, continue to monitor. K+ normal Fluids: SLIV (6) Deep vein thrombosis (DVT) prophylaxis prescribed at discharge Status: Acute Plan: DVT prophylaxis: SCDs, ambulation. Avoid chemical prophylaxis with liver failure. GI prophylaxis: Protonix 40 mg by mouth daily Vitals every 4 Out of bed ad zoraida. Monitor electrolytes replace accordingly (Garry Benson MD R2) Problem Qualifiers (1) Ascites: Qualified Code: K70.11 - Ascites due to alcoholic hepatitis (2) Liver failure: Qualified Code: K72.10 - Chronic liver failure without hepatic coma Garry Benson MD R2 July 19, 2016 09:25 Moose Simms MD July 19, 2016 15:05
[2016-07-19] MEDS: SPIRONOLACTONE 25 MG TAB PO SCH (09:32)
[2016-07-19] MEDS: MULTIVITAMINS/MINERALS THERAPEUTIC TAB PO SCH (09:32)
[2016-07-19] MEDS: FUROSEMIDE 20 MG TAB PO SCH (09:32)
[2016-07-19] MEDS: THIAMINE HCL 100 MG TAB PO SCH (09:32)
[2016-07-19] MEDS: FOLIC ACID 1 MG TAB PO SCH (09:32)
[2016-07-19] MEDS: LACTULOSE SYRUP 20 GM/30 ML CUP PO SCH (09:32)
[2016-07-19] MEDS: PANTOPRAZOLE SOD 40 MG DELAYED RELEASE TAB PO SCH (09:32)
[2016-07-19] MEDS: SODIUM CHLORIDE 0.9% FLUSH 10 ML FLUSH IV FLUSH SCH ×2 (09:32→20:21)
[2016-07-19] MEDS: SODIUM CHLORIDE 0.9% FLUSH 10 ML FLUSH IV FLUSH PRN ×3 (14:25→23:55)
--- NOTE | 2016-07-19 15:25 | HHI.GIFU ---
Subjective Remarks Pt resting in bed. She says she is not wanting to eat much b/c her abd is so distended. Denies pain, n/v. (Blanka Reynoso) Objective Vitals I&O Vital Signs Date Time Temp Pulse Resp B/P Pulse Ox O2 Delivery O2 Flow Rate FiO2 07/19/16 14:47 16 07/19/16 11:55 98.0 84 20 111/71 97 07/19/16 08:00 97.4 84 20 121/61 97 07/19/16 04:00 97.7 83 18 125/61 95 07/19/16 00:19 97.8 94 18 122/59 95 07/19/16 00:00 97.6 88 18 128/68 94 I/O 07/18/16 07/18/16 07/18/16 07/19/16 07/19/16 07/19/16 07:00 15:00 23:00 07:00 15:00 23:00 Intake Total 100 ml 240 ml 100 ml Balance 100 ml 240 ml 100 ml Intake Oral 240 ml IV Total 100 ml 100 ml # Voids 1 # Bowel Movements 0 Laboratory Laboratory Tests Test 07/18/16 07/19/16 20:09 06:42 Tumor Marker Alpha Fetoprotein 2.3 White Blood Count 6.9 Red Blood Count 2.38 Hemoglobin 8.1 Hematocrit 23.5 Mean Corpuscular Volume 98.7 Mean Corpuscular Hemoglobin 33.9 Mean Corpuscular Hemoglobin 34.4 Concent Red Cell Distribution Width 18.6 Platelet Count 88 Mean Platelet Volume 7.6 Sodium Level 139 Potassium Level 3.9 Chloride Level 107 Carbon Dioxide Level 22.5 Anion Gap 10 Blood Urea Nitrogen 18 Creatinine 0.71 Estimat Glomerular Filtration 92 Rate Random Glucose 94 Calcium Level 8.6 Total Bilirubin 14.5 Aspartate Amino Transf 81 (AST/SGOT) Alanine Aminotransferase 21 (ALT/SGPT) Alkaline Phosphatase 98 Total Protein 5.9 Albumin 2.9 Date/Time Procedure Status Source Growth 07/17/16 15:30 Gram Stain - Final Resulted Fluid Peritoneal Fluid 07/17/16 15:30 Body Fluid Culture - Preliminary Resulted Fluid Peritoneal Fluid NO GROWTH IN 48 HOURS. 07/17/16 12:15 Aerobic Blood Culture - Preliminary Resulted Blood Peripheral NO GROWTH IN 2 DAYS 07/17/16 12:15 Anaerobic Blood Culture - Preliminary Resulted Blood Peripheral NO GROWTH IN 2 DAYS Imaging Last Impressions Cyst Biopsy Asp-Paracentesis US 07/17/16 0000 Signed Impressions: Service Date/Time: Sunday, July 17, 2016 14:37 - CONCLUSION: Uncomplicated ultrasound guided paracentesis. Michoacano Hernandez MD Physical Exam HEENT: Pupils round and reactive to light; normocephalic; atraumatic; +icterus. CHEST: CTA CARDIAC: RRR, + murmur ABDOMEN: somewhat firm, distended, dull to percussion, mild diffuse TTp; bowel sounds are present in all four quadrants. EXTREMITIES: No clubbing, cyanosis, or edema. 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 (Blanka Reynoso) Assessment and Plan Plan ASSESSMENT - jaundice, elev LFTs, anasarca - onset 6 d ago. s/p paracentesis with 4L removed. Still distended. Exacerbation poss r/t recent tylenol use. hx cirrhosis likely secondary to ETOH, was here earlier this month and had EGD 07-02-16 found portal HTN, no varices; US liver --> liver enlarged to 20cm suspected hepatocellular dz, splenomegaly 18.6 cm, no free fluid, cholecystectomy. Prev liver w/u neg for hepatitis, autoimmune dz. pt denies recent ETOH. lactulose, pentoxifylline. PLAN - spironolactone 100mg - continue lasix 20mg - no IV fluids - low sodium diet - continue lactulose - continue pentoxifylline - monitor labwork - supportive care This pt seen by myself and Dr Stover and this note is written on his behalf. ( Blanka Reynoso) Physician Comments Patient seen and examined Agree with above Continue with current supportive care Monitor labs (Rick Stover MD) Blanka Reynoso July 19, 2016 15:25 Rick Stover MD July 19, 2016 19:21
[2016-07-19 21:50] LABS: BACTERIA, URINE MANY /hpf; BLOOD, URINE NEG (NEG); COMMENT (UR) CULTURE INDICATED; CULTURE IF INDICATED CULTURE INDICATED; GLUCOSE,URINE NEG (NEG); KETONE, URINE NEG (NEG); MUCUS URINE FEW /lpf (OCC); NITRITE,URINE NEG (NEG); SQUAMOUS EPITHELIAL CELL URINE <1 /hpf (0-5); URINE COLOR DARK-YELLOW (YELLW/STRAW)
[2016-07-20] VITALS (9 sets, daily range): BP systolic 128–155; BP diastolic 61–75; PULSE 97–112; RESP 16–20; TEMP 98.1–98.7; O2SAT 94–98
[2016-07-20] MEDS: ALBUMIN HUMAN 25% 25 GM/100 ML BAGP IV SCH ×2 (04:57→12:08)
[2016-07-20] MEDS: MORPHINE SULFATE 4 MG/ML INJ IV PRN ×6 (05:01→22:10)
[2016-07-20] MEDS: SODIUM CHLORIDE 0.9% FLUSH 10 ML FLUSH IV FLUSH PRN ×2 (05:01→22:10)
[2016-07-20] MEDS: PENTOXIFYLLINE 400 MG CONTROLLED RELEASE TAB PO SCH ×3 (05:13→22:19)
[2016-07-20 07:43] LABS: HEMATOCRIT 21.9 % (35.0-46.0); MEAN CELL VOLUME 99.5 FL (80.0-100.0); MEAN CORPUSCULAR HGB CONC 34.1 % (32.0-36.0); PLATELET COUNT 85 TH/MM3 (150-450); RED CELL DISTRIBUTION WIDTH 19.1 % (11.6-17.2); WHITE BLOOD COUNT 7.2 TH/MM3 (4.0-11.0)
[2016-07-20 07:51] LABS: REVIEW FLAG FINAL
[2016-07-20 08:06] LABS: BICARBONATE 25.6 MEQ/L (21.0-32.0); POTASSIUM 3.8 MEQ/L (3.5-5.1)
--- NOTE | 2016-07-20 08:29 | HHI.FPPN ---
Subjective Remarks Patient was lying in bed this morning. Her major complaint is tightness of her abdomen and pain in her right quadrant. She has been able to eat but does not feel hungry this morning. She denies nausea, vomiting, shortness of breath, chest pain. Her legs feel less tight and she has been able to move them more freely. She would like to know what the plan is, if she will get another paracentesis today whole a a liver biopsy will be performed today. (EkoBecca MD R1) Objective Vitals Vital Signs Date Time Temp Pulse Resp B/P Pulse Ox O2 Delivery O2 Flow Rate FiO2 07/20/16 04:00 98.5 106 18 134/63 94 07/20/16 04:00 Room Air 07/20/16 00:00 Room Air 07/20/16 00:00 98.6 112 18 148/69 95 07/19/16 22:20 125 07/19/16 20:10 98 07/19/16 20:00 98.5 102 18 139/67 96 07/19/16 20:00 Room Air 07/19/16 17:30 16 07/19/16 16:00 98.4 90 20 123/66 97 07/19/16 11:55 98.0 84 20 111/71 97 I/O 07/19/16 07/19/16 07/19/16 07/20/16 07/20/16 07/20/16 07:00 15:00 23:00 07:00 15:00 23:00 Intake Total 240 ml 460 ml 220 ml 200 ml Output Total 600 ml 700 ml Balance 240 ml 460 ml -380 ml -500 ml Intake Oral 240 ml 360 ml 120 ml 100 ml IV Total 100 ml Albumin 100 ml 100 ml Output Urine Total 600 ml 700 ml # Voids 1 8 # Bowel Movements 0 2 1 0 (Becca Venegas MD R1) Result Diagram: 07/20/1662807/20/16628 Objective Remarks O. CONSTITUTIONAL/GEN: normally nourished, in NAD. LUNGS: clear A-P, respiratory effort is normal. CARDIOVASCULAR: Tachycardic rate without murmur or gallop. 1+ edema of LE's. GI/ABD: ascites without masses or palpable megaly. Mildly tender to direct palpation in the right quadrant. No guarding or rebound. NEURO: No focal deficits. SKIN: color is jaundiced. MUSC: back is normal in appearance. Extremities are normal in appearance. PSYCH/MENTAL STATUS: Alert and oriented x 3. Procedures Paracentesis (Becca Venegas MD R1) A/P Assessment and Plan 41-year-old female with history of heavy alcohol use and liver cirrhosis admitted for worsening abdominal distention with abdominal pain, fevers at home , worsening lower extremity edema, found to have ascites on abdominal ultrasound. Paracentesis was performed on the day of admission. GI was consulted and has been following her during her hospitalization. She was started on albumin IV Q8h. She was started on spironolactone by the primary team which was increased by GI to 100 mg daily. wdw: Dr. Simms Discharge Planning Pending GI recommendations (Becca Venegas MD R1) Attending Attestation Case reviewed and discussed with the resident team. Agree with plan of care as discussed with me and documented in the resident note. (Moose Simms MD) Problem List: (1) Ascites Status: Acute Plan: Paracentesis performed in the ED on admission. Hopefully another paracentesis will be performed today, pending recommendations from GI Current ascites fluid and ascites culture is not showing any signs of SBP On exam, appears well. Afebrile. No leukocytosis. 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 (3) Pancytopenia Status: Acute Plan: * Hemoglobin 7.5 compared to 9.4 on admission * Hematocrit 21.9 compared to 28.6 on admission * Platelets down to 85 from 114 on admission * Will continue to monitor at this time * Consider PRBC transfusion if hemoglobin drops below 7 (4) History of alcohol abuse Status: Chronic Plan: Prior history of heavy EtOH abuse. Denies alcohol use since December 17, 2015. Reports good family support as well as support from spiritism wood machinist. * Offered community resources, patient declines * Rally pack (5) Nutrition, metabolism, and development symptoms Status: Acute Plan: Diet: Heart healthy diet once paracentesis completed Electrolytes: Normal, continue to monitor. K+ normal Fluids: SLIV (6) Deep vein thrombosis (DVT) prophylaxis prescribed at discharge Status: Acute Plan: DVT prophylaxis: SCDs, ambulation. Avoid chemical prophylaxis with liver failure. GI prophylaxis: Protonix 40 mg by mouth daily Vitals every 4 Out of bed ad zoraida. Monitor electrolytes replace accordingly (Becca Venegas MD R1) Problem Qualifiers (1) Ascites: Qualified Code: K70.11 - Ascites due to alcoholic hepatitis (2) Liver failure: Qualified Code: K72.10 - Chronic liver failure without hepatic coma Becca Venegas MD R1 July 20, 2016 08:29 Moose Simms MD July 20, 2016 13:54
[2016-07-20] MEDS: SPIRONOLACTONE 25 MG TAB PO SCH (08:49)
[2016-07-20] MEDS: MULTIVITAMINS/MINERALS THERAPEUTIC TAB PO SCH (08:49)
[2016-07-20] MEDS: THIAMINE HCL 100 MG TAB PO SCH (08:49)
[2016-07-20] MEDS: SODIUM CHLORIDE 0.9% FLUSH 10 ML FLUSH IV FLUSH SCH ×2 (08:49→19:34)
[2016-07-20] MEDS: PANTOPRAZOLE SOD 40 MG DELAYED RELEASE TAB PO SCH (08:49)
[2016-07-20] MEDS: LACTULOSE SYRUP 20 GM/30 ML CUP PO SCH (08:49)
[2016-07-20] MEDS: FUROSEMIDE 20 MG TAB PO SCH (08:49)
[2016-07-20] MEDS: FOLIC ACID 1 MG TAB PO SCH (08:49)
[2016-07-20] MEDS ORDERED: SPIRONOLACTONE 25 MG TAB PO SCH (09:00)
--- NOTE | 2016-07-20 14:24 | HHI.GIFU ---
Subjective Remarks Patient is resting in bed, she is with complaints of pressure and pain in both lateral sides of abd. states this is better with walking. Denies nausea, vomiting or bleeding (Mae Giron) Objective Vitals I&O Vital Signs Date Time Temp Pulse Resp B/P Pulse Ox O2 Delivery O2 Flow Rate FiO2 07/20/16 08:58 104 07/20/16 08:58 Room Air 07/20/16 08:00 98.4 107 20 135/70 95 07/20/16 08:00 98.1 98 18 138/71 97 07/20/16 04:00 98.5 106 18 134/63 94 07/20/16 04:00 Room Air 07/20/16 00:00 Room Air 07/20/16 00:00 98.6 112 18 148/69 95 07/19/16 22:20 125 07/19/16 20:10 98 07/19/16 20:00 98.5 102 18 139/67 96 07/19/16 20:00 Room Air 07/19/16 17:30 16 07/19/16 16:00 98.4 90 20 123/66 97 I/O 07/19/16 07/19/16 07/19/16 07/20/16 07/20/16 07/20/16 07:00 15:00 23:00 07:00 15:00 23:00 Intake Total 240 ml 460 ml 220 ml 200 ml Output Total 600 ml 700 ml Balance 240 ml 460 ml -380 ml -500 ml Intake Oral 240 ml 360 ml 120 ml 100 ml IV Total 100 ml Albumin 100 ml 100 ml Output Urine Total 600 ml 700 ml # Voids 1 8 # Bowel Movements 0 2 1 0 Laboratory Laboratory Tests Test 07/19/16 07/20/16 21:10 06:29 Urine Color DARK-YELLOW Urine Turbidity CLEAR Urine pH 6.0 Urine Specific [place] 1.012 Urine Protein NEG Urine Glucose (UA) NEG Urine Ketones NEG Urine Occult Blood NEG Urine Nitrite NEG Urine Bilirubin MOD Urine Urobilinogen LESS THAN 2.0 Urine Leukocyte Esterase NEG Urine RBC LESS THAN 1 Urine WBC 1 Urine Squamous Epithelial <1 Cells Urine Amorphous Sediment RARE Urine Bacteria MANY Urine Mucus FEW Microscopic Urinalysis Comment CULTURE INDICATED White Blood Count 7.2 Red Blood Count 2.20 Hemoglobin 7.5 Hematocrit 21.9 Mean Corpuscular Volume 99.5 Mean Corpuscular Hemoglobin 34.0 Mean Corpuscular Hemoglobin 34.1 Concent Red Cell Distribution Width 19.1 Platelet Count 85 Mean Platelet Volume 8.1 Sodium Level 139 Potassium Level 3.8 Chloride Level 105 Carbon Dioxide Level 25.6 Anion Gap 8 Blood Urea Nitrogen 11 Creatinine 0.68 Estimat Glomerular Filtration 96 Rate Random Glucose 93 Calcium Level 8.6 Date/Time Procedure Status Source Growth 07/19/16 21:10 Urine Culture - Preliminary Resulted Urine Clean Catch <10,000 CFU/ML GRAM POSITIVE EMILY 07/17/16 15:30 Gram Stain - Final Complete Fluid Peritoneal Fluid 07/17/16 15:30 Body Fluid Culture - Final Complete Fluid Peritoneal Fluid NO GROWTH IN 72 HRS.--AEROBICALLY OR ... 07/17/16 12:15 Aerobic Blood Culture - Preliminary Resulted Blood Peripheral NO GROWTH IN 3 DAYS 07/17/16 12:15 Anaerobic Blood Culture - Preliminary Resulted Blood Peripheral NO GROWTH IN 3 DAYS Imaging Last Impressions Cyst Biopsy Asp-Paracentesis US 07/17/16 0000 Signed Impressions: Service Date/Time: Sunday, July 17, 2016 14:37 - CONCLUSION: Uncomplicated ultrasound guided paracentesis. Michoacano Hernandez MD Physical Exam HEENT: Pupils round and reactive to light; normocephalic; atraumatic; +icterus. CHEST: CTA CARDIAC: RRR, + murmur ABDOMEN: somewhat firm, distended, dull to percussion, mild diffuse TTp; bowel sounds are present in all four quadrants. EXTREMITIES: No clubbing, cyanosis, or edema. 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 (Amawi,Raoawautumn RN UNIT MANAGER) Assessment and Plan Plan ASSESSMENT - jaundice, elev LFTs, anasarca - onset 6 d ago. s/p paracentesis with 4L removed. Still distended. Exacerbation poss r/t recent tylenol use. hx cirrhosis likely secondary to ETOH, was here earlier this month and had EGD 07-02-16 found portal HTN, no varices; US liver --> liver enlarged to 20cm suspected hepatocellular dz, splenomegaly 18.6 cm, no free fluid, cholecystectomy. Prev liver w/u neg for hepatitis, autoimmune dz. pt denies recent ETOH. lactulose, pentoxifylline. - Anemia- worsening- hgb is 7.5, no bleeding reported - Thrombocytopenia- secondary to cirrhosis PLAN - spironolactone 100mg - Increase lasix to 40mg - no IV fluids - low sodium diet - Type and screen - Transfuse one unit of blood - continue lactulose - continue pentoxifylline - CBC , CMP in am - Consider colonoscopy when stable - supportive care This pt seen by myself and Dr Stover and this note is written on his behalf. ( Mae Giron) Physician Comments Patient seen and examined Agree with above Continue with current supportive care Monitor labs Patient seems to be responding to diuretics with a negative fluid balance Will advance diuretics a little more and see how she does (Rick Stover MD) Mae Giron July 20, 2016 14:23 Rick Stover MD July 20, 2016 18:38
[2016-07-20] MEDS ORDERED: SODIUM CHLOR 0.9% 250 ML INJ 250 ML IV ONE (14:45)
[2016-07-21 01:30] VITALS: BP 130/65; PULSE 98; RESP 16; TEMP 98.7; O2SAT 96
[2016-07-21] MEDS: MORPHINE SULFATE 4 MG/ML INJ IV PRN ×8 (01:30→21:35)
[2016-07-21 04:00] VITALS: BP 130/65; PULSE 99; RESP 18; TEMP 98.3; O2SAT 95
[2016-07-21] MEDS: PENTOXIFYLLINE 400 MG CONTROLLED RELEASE TAB PO SCH ×3 (05:35→21:35)
[2016-07-21 08:00] VITALS: BP 127/74; PULSE 97; PULSE 98; RESP 18; TEMP 98.3; O2SAT 96
[2016-07-21 08:05] LABS: AUTOMATED NEUTROPHIL # 7.5 TH/MM3 (1.8-7.7); BASOPHIL # 0.1 TH/MM3 (0-0.2); BASOPHIL % 0.7 % (0.0-2.0); EOSINOPHIL # 0.1 TH/MM3 (0-0.4); EOSINOPHIL % 1.5 % (0.0-4.0); HEMATOCRIT 25.2 % (35.0-46.0); LYMPH % 11.7 % (9.0-44.0); LYMPHOCYTE # 1.1 TH/MM3 (1.0-4.8); MEAN CELL VOLUME 97.7 FL (80.0-100.0); MEAN CORPUSCULAR HEMOGLOBIN 34.1 PG (27.0-34.0); MEAN CORPUSCULAR HGB CONC 34.9 % (32.0-36.0); MONO % 5.4 % (0.0-8.0); NEUT % 80.7 % (16.0-70.0); PLATELET COUNT 84 TH/MM3 (150-450); RED BLOOD COUNT 2.58 MIL/MM3 (4.00-5.30); RED CELL DISTRIBUTION WIDTH 19.7 % (11.6-17.2); WHITE BLOOD COUNT 9.3 TH/MM3 (4.0-11.0)
[2016-07-21 08:09] LABS: ALT (GPT) 23 U/L (10-53); ANION GAP 8 MEQ/L (5-15); AST (GOT) 100 U/L (15-37); BICARBONATE 27.5 MEQ/L (21.0-32.0); BLOOD UREA NITROGEN 8 MG/DL (7-18); CHLORIDE 103 MEQ/L (98-107); GLOMERULAR FILTRATION RATE 111 ML/MIN (>89); HEMO FLAGS AUTO DIFF; POTASSIUM 3.9 MEQ/L (3.5-5.1); SODIUM (NA) 138 MEQ/L (136-145)
[2016-07-21 08:10] LABS: ALKALINE PHOSPHATASE 100 U/L (45-117); TOTAL BILIRUBIN ADULT 14.7 MG/DL (0.2-1.0)
[2016-07-21] MEDS: LACTULOSE SYRUP 20 GM/30 ML CUP PO SCH (08:34)
[2016-07-21] MEDS: PANTOPRAZOLE SOD 40 MG DELAYED RELEASE TAB PO SCH (08:36)
[2016-07-21] MEDS: SPIRONOLACTONE 25 MG TAB PO SCH (08:36)
--- NOTE | 2016-07-21 08:36 | HHI.FPPN ---
Subjective Remarks Patient seen and examined this morning. Temperature 98.3, pulse 99, respiratory rate 18, blood pressure 130/65, pulse ox 95. He reports that she is doing well and is hoping to get out of the hospital soon. Says that she got her blood transfusion last night and is feeling less fatigued at this time. The increase in Lasix has helped diurese some of her fluid off that she says she is still feeling some swelling in her abdomen. Endorses: Abdominal swelling, abdominal pain Denies: Fever, chills, nausea, vomiting, shortness of breath, chest pain, headache, calf pain (Garry Benson MD R2) Objective Vitals Vital Signs Date Time Temp Pulse Resp B/P Pulse Ox O2 Delivery O2 Flow Rate FiO2 07/21/16 04:00 98.3 99 18 130/65 95 07/21/16 01:30 98.7 98 16 130/65 96 07/20/16 23:00 98.5 97 16 128/61 95 07/20/16 22:45 98.3 97 16 136/64 95 07/20/16 20:17 101 07/20/16 20:00 98.6 100 20 155/75 97 07/20/16 19:52 Room Air 07/20/16 16:00 98.7 99 20 136/65 98 07/20/16 08:58 104 07/20/16 08:58 Room Air I/O 07/20/16 07/20/16 07/20/16 07/21/16 07/21/16 07/21/16 06:59 14:59 22:59 06:59 14:59 22:59 Intake Total 200 ml 240 ml 240 ml 240 ml Output Total 700 ml 300 ml 1050 ml 325 ml Balance -500 ml -60 ml -810 ml -85 ml Intake Oral 100 ml 240 ml 240 ml 240 ml Albumin 100 ml Output Urine Total 700 ml 300 ml 1050 ml 325 ml # Bowel Movements 0 1 0 0 (Garry Benson MD R2) Result Diagram: 07/21/16 0700 07/21/16 0700 Imaging Last Impressions Cyst Biopsy Asp-Paracentesis US 07/17/16 0000 Signed Impressions: Service Date/Time: Sunday, July 17, 2016 14:37 - CONCLUSION: Uncomplicated ultrasound guided paracentesis. Michoacano Hernandez MD Objective Remarks O. CONSTITUTIONAL/GEN: normally nourished, in NAD. LUNGS: clear A-P, respiratory effort is normal. CARDIOVASCULAR: Tachycardic rate without murmur or gallop. 1+ edema of LE's. GI/ABD: ascites without masses or palpable megaly. Mildly tender to direct palpation in the right quadrant. No guarding or rebound. NEURO: No focal deficits. SKIN: color is jaundiced. MUSC: back is normal in appearance. Extremities are normal in appearance. PSYCH/MENTAL STATUS: Alert and oriented x 3. Procedures Paracentesis Medications and IVs Current Medications Medications (Trade) Dose Ordered Sig/Ric Route Start Time Stop Time Status Last Admin (NS Flush) 2 ml UNSCH PRN IV FLUSH 07/17/16 14:30 07/20/16 22:10 (NS Flush) 2 ml BID IV FLUSH 07/17/16 21:00 07/20/16 19:34 (Zofran Inj) 4 mg Q6H PRN IVP 07/17/16 14:30 (Senokot) 17.2 mg Q12H PRN PO 07/17/16 14:30 (Restoril) 15 mg HS PRN PO 07/17/16 14:30 (Narcan Inj) 0.4 mg UNSCH PRN IV 07/17/16 14:30 (Morphine Inj) 2 mg Q2H PRN IV 07/17/16 14:30 07/21/16 05:36 (Protonix) 40 mg DAILY PO 07/18/16 09:00 07/20/16 08:49 (Folate) 1 mg DAILY PO 07/18/16 09:00 07/20/16 08:49 (Lactulose Liq) 30 ml DAILY PO 07/18/16 09:00 07/20/16 08:49 (Theragran M Tab) 1 tab DAILY PO 07/18/16 09:00 07/20/16 08:49 (TRENtal SR) 400 mg Q8HR PO 07/17/16 22:00 07/21/16 05:35 (Vitamin B1) 100 mg DAILY PO 07/18/16 09:00 07/20/16 08:49 (Aldactone) 100 mg DAILY PO 07/20/16 09:00 07/20/16 08:49 (Lasix) 40 mg DAILY PO 07/21/16 09:00 (Garry Benson MD R2) A/P Assessment and Plan 41-year-old female with history of heavy alcohol use and liver cirrhosis admitted for worsening abdominal distention with abdominal pain, fevers at home , worsening lower extremity edema, found to have ascites on abdominal ultrasound. Paracentesis was performed on the day of admission. GI was consulted and has been following her during her hospitalization. wdw: Dr. Simms Discharge Planning Pending GI recommendations (Garry Benson MD R2) Attending Attestation Case reviewed and discussed with the resident team. Agree with plan of care as discussed with me and documented in the resident note. (Moose Simms MD) Problem List: (1) Ascites Status: Acute Plan: Paracentesis performed in the ED on admission. Hopefully another paracentesis will be performed today, pending recommendations from GI Current ascites fluid and ascites culture is not showing any signs of SBP On exam, appears well. Afebrile. No leukocytosis. 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 (3) Pancytopenia Status: Acute Plan: * Platelets down to 84 from 114 on admission * Will continue to monitor at this time * Status post blood transfusion, white blood cell count now 9.3, hemoglobin and hematocrit is 8.8/25.2 respectively (4) History of alcohol abuse Status: Chronic Plan: Prior history of heavy EtOH abuse. Denies alcohol use since December 17, 2015. Reports good family support as well as support from [employer]. * Offered community resources, patient declines * Rally pack (5) Nutrition, metabolism, and development symptoms Status: Acute Plan: Diet: Heart healthy diet Electrolytes: Normal, continue to monitor. K+ normal Fluids: SLIV (6) Deep vein thrombosis (DVT) prophylaxis prescribed at discharge Status: Acute Plan: DVT prophylaxis: SCDs, ambulation. Avoid chemical prophylaxis with liver failure. GI prophylaxis: Protonix 40 mg by mouth daily Vitals every 4 Out of bed ad zoraida. Monitor electrolytes replace accordingly (Garry Benson MD R2) Problem Qualifiers (1) Ascites: Qualified Code: K70.11 - Ascites due to alcoholic hepatitis (2) Liver failure: Qualified Code: K72.10 - Chronic liver failure without hepatic coma Garry Benson MD R2 July 21, 2016 08:36 Moose Simms MD July 21, 2016 10:10
[2016-07-21] MEDS: SODIUM CHLORIDE 0.9% FLUSH 10 ML FLUSH IV FLUSH SCH ×2 (08:37→21:36)
[2016-07-21] MEDS: THIAMINE HCL 100 MG TAB PO SCH (08:37)
[2016-07-21] MEDS: FOLIC ACID 1 MG TAB PO SCH (08:37)
[2016-07-21] MEDS: MULTIVITAMINS/MINERALS THERAPEUTIC TAB PO SCH (08:37)
[2016-07-21] MEDS: FUROSEMIDE 40 MG TAB PO SCH (08:37)
[2016-07-21 09:31] LABS: PLATELET ESTIMATE SMEAR LOW (NORMAL); PLATELET MORPHOLOGY NORMAL (NORMAL); SCAN/DIFF AUTO DIFF CONFIRMED
--- NOTE | 2016-07-21 09:51 | HHI.GIFU ---
Subjective Remarks Patient is resting in bed, states abd better not as tight. Received one unit of blood yesterday. (Mae Giron LOVE) Objective Vitals I&O Vital Signs Date Time Temp Pulse Resp B/P Pulse Ox O2 Delivery O2 Flow Rate FiO2 07/21/16 08:00 98.3 98 18 127/74 96 07/21/16 04:00 98.3 99 18 130/65 95 07/21/16 01:30 98.7 98 16 130/65 96 07/20/16 23:00 98.5 97 16 128/61 95 07/20/16 22:45 98.3 97 16 136/64 95 07/20/16 20:17 101 07/20/16 20:00 98.6 100 20 155/75 97 07/20/16 19:52 Room Air 07/20/16 16:00 98.7 99 20 136/65 98 I/O 07/20/16 07/20/16 07/20/16 07/21/16 07/21/16 07/21/16 07:00 15:00 23:00 07:00 15:00 23:00 Intake Total 200 ml 240 ml 240 ml 240 ml Output Total 700 ml 300 ml 1050 ml 325 ml Balance -500 ml -60 ml -810 ml -85 ml Intake Oral 100 ml 240 ml 240 ml 240 ml Albumin 100 ml Output Urine Total 700 ml 300 ml 1050 ml 325 ml # Bowel Movements 0 1 0 0 Laboratory Laboratory Tests Test 07/20/16 07/20/16 07/20/16 07/21/16 16:43 19:08 19:13 07:00 Blood Type O POSITIVE O POSITIVE Antibody Screen POSITIVE Antigen Identification E Antigen - NEGATIVE Crossmatch Leukocyte-Reduced Red Blood Cells Blood Bank Comment Antibody Identification Anti-E White Blood Count 9.3 Red Blood Count 2.58 Hemoglobin 8.8 Hematocrit 25.2 Mean Corpuscular Volume 97.7 Mean Corpuscular Hemoglobin 34.1 Mean Corpuscular Hemoglobin 34.9 Concent Red Cell Distribution Width 19.7 Platelet Count 84 Mean Platelet Volume 7.6 Neutrophils (%) (Auto) 80.7 Lymphocytes (%) (Auto) 11.7 Monocytes (%) (Auto) 5.4 Eosinophils (%) (Auto) 1.5 Basophils (%) (Auto) 0.7 Neutrophils # (Auto) 7.5 Lymphocytes # (Auto) 1.1 Monocytes # (Auto) 0.5 Eosinophils # (Auto) 0.1 Basophils # (Auto) 0.1 CBC Comment AUTO DIFF Differential Comment AUTO DIFF CONFIRMED Platelet Estimate LOW Platelet Morphology Comment NORMAL Sodium Level 138 Potassium Level 3.9 Chloride Level 103 Carbon Dioxide Level 27.5 Anion Gap 8 Blood Urea Nitrogen 8 Creatinine 0.60 Estimat Glomerular Filtration 111 Rate Random Glucose 98 Calcium Level 8.8 Total Bilirubin 14.7 Aspartate Amino Transf 100 (AST/SGOT) Alanine Aminotransferase 23 (ALT/SGPT) Alkaline Phosphatase 100 Total Protein 5.9 Albumin 3.1 Date/Time Procedure Status Source Growth 07/19/16 21:10 Urine Culture - Final Complete Urine Clean Catch <10,000 CFU/ML GRAM POSITIVE EMILY 07/17/16 15:30 Gram Stain - Final Complete Fluid Peritoneal Fluid 07/17/16 15:30 Body Fluid Culture - Final Complete Fluid Peritoneal Fluid NO GROWTH IN 72 HRS.--AEROBICALLY OR ... 07/17/16 12:15 Aerobic Blood Culture - Preliminary Resulted Blood Peripheral NO GROWTH IN 3 DAYS 07/17/16 12:15 Anaerobic Blood Culture - Preliminary Resulted Blood Peripheral NO GROWTH IN 3 DAYS Imaging Last Impressions Cyst Biopsy Asp-Paracentesis US 07/17/16 0000 Signed Impressions: Service Date/Time: Sunday, July 17, 2016 14:37 - CONCLUSION: Uncomplicated ultrasound guided paracentesis. Michoacano Hernandez MD Physical Exam HEENT: Pupils round and reactive to light; normocephalic; atraumatic; +icterus. CHEST: CTA CARDIAC: RRR, + murmur ABDOMEN: somewhat firm, distended, dull to percussion, mild diffuse TTp; bowel sounds are present in all four quadrants. EXTREMITIES: No clubbing, cyanosis, or edema. SKIN: Normal; no rash; + jaundice LOCOMOTIVE PIPE FITTER: No focal deficits; alert and oriented times three. (Mae Giron) Assessment and Plan Plan ASSESSMENT - jaundice, elev LFTs, anasarca - onset 6 d ago. s/p paracentesis with 4L removed. negative cytology, peritoneal analysis unremarkable except for some elevation in WBC, and RBC Exacerbation poss r/t recent Tylenol use. hx cirrhosis , was here earlier this month and had EGD 07-02-16 found portal HTN, no varices; US liver --> liver enlarged to 20cm suspected hepatocellular dz, splenomegaly 18.6 cm, no free fluid, cholecystectomy. Prev liver w/u neg for hepatitis, autoimmune dz. pt denies recent ETOH. lactulose, pentoxifylline. - Anemia- hgb is 8.8 s/p one unit of blood, no bleeding reported - Thrombocytopenia- secondary to cirrhosis - Coagulopathy - Cirrhosis- unclear etiology, patient drinks 2-3 times a week, consider liver bx when more stable PLAN - spironolactone 100mg - lasix 40mg - low sodium diet - continue lactulose - continue pentoxifylline - CBC , CMP, PT/INR in am - Consider colonoscopy when stable - Consider liver bx when stable - supportive care This pt seen by myself and Dr Stover and this note is written on his behalf. ( Mae Giron) Physician Comments Patient seen and examined Agree with above Continue with current supportive care Monitor labs Continue with current diuretics Monitor I's and O's Possible discharge in one to 2 days (Rick Stover MD) Mae Giron July 21, 2016 09:51 Rick Stover MD July 21, 2016 10:38
[2016-07-21 12:00] VITALS: BP 124/82; PULSE 99; RESP 18; TEMP 98.3; O2SAT 96
[2016-07-21 16:00] VITALS: BP 133/77; PULSE 94; RESP 18; TEMP 98.3; O2SAT 96
[2016-07-21 20:00] VITALS: BP 129/63; PULSE 93; PULSE 95; RESP 22; TEMP 98.5; O2SAT 95
[2016-07-22] VITALS: BP 127/67; PULSE 93; RESP 22; TEMP 98.5; O2SAT 96
[2016-07-22] MEDS: MORPHINE SULFATE 4 MG/ML INJ IV PRN ×8 (02:16→23:06)
[2016-07-22 04:00] VITALS: BP 139/62; PULSE 104; RESP 20; TEMP 98.5; O2SAT 96
[2016-07-22] MEDS: PENTOXIFYLLINE 400 MG CONTROLLED RELEASE TAB PO SCH ×3 (05:28→22:08)
[2016-07-22] MEDS: SODIUM CHLORIDE 0.9% FLUSH 10 ML FLUSH IV FLUSH PRN ×2 (05:28→23:07)
--- NOTE | 2016-07-22 07:51 | HHI.FPPN ---
Subjective Remarks Patient is doing well this morning. She does not have much abdominal pain and is not as distended as the previous day. She feels a whole lot better. She has no chest pain or shortness of breath, nausea or vomiting. She however feels very itchy all over her body and has been scratching since yesterday. (FelibertooBecca MD R1) Objective Vitals Vital Signs Date Time Temp Pulse Resp B/P Pulse Ox O2 Delivery O2 Flow Rate FiO2 07/22/16 04:00 98.5 104 20 139/62 96 07/22/16 00:00 Room Air 07/22/16 00:00 98.5 93 22 127/67 96 07/21/16 21:30 Room Air 07/21/16 20:00 98.5 93 22 129/63 95 07/21/16 20:00 95 07/21/16 16:00 98.3 94 18 133/77 96 07/21/16 12:00 98.3 99 18 124/82 96 07/21/16 08:00 97 07/21/16 08:00 Room Air 07/21/16 08:00 98.3 98 18 127/74 96 I/O 07/21/16 07/21/16 07/21/16 07/22/16 07/22/16 07/22/16 07:00 15:00 23:00 07:00 15:00 23:00 Intake Total 240 ml 325 ml 480 ml 320 ml Output Total 325 ml 550 ml 800 ml 450 ml Balance -85 ml -225 ml -320 ml -130 ml Intake Oral 240 ml 325 ml 480 ml 320 ml IV Total 0 ml Output Urine Total 325 ml 550 ml 800 ml 450 ml # Bowel Movements 0 1 0 0 (Becca Venegas MD R1) Result Diagram: 07/21/16 0707/21/16 07 Objective Remarks O. CONSTITUTIONAL/GEN: normally nourished, in NAD. LUNGS: clear A-P, respiratory effort is normal. CARDIOVASCULAR: Tachycardic rate without murmur or gallop. 1+ edema of BLEs. GI/ABD: ascites without masses or palpable megaly. Minimally tender to direct palpation in the right quadrant. No guarding or rebound. NEURO: No focal deficits. SKIN: color is jaundiced. MUSC: back is normal in appearance. Extremities are normal in appearance. PSYCH/MENTAL STATUS: Alert and oriented x 3. Procedures Paracentesis (Becca Venegas MD R1) A/P Assessment and Plan 41-year-old female with history of heavy alcohol use and liver cirrhosis admitted for worsening abdominal distention with abdominal pain, fevers at home , worsening lower extremity edema, found to have ascites on abdominal ultrasound. Paracentesis was performed on the day of admission. GI was consulted and has been following her during her hospitalization. wdw: Dr. Simms Discharge Planning Pending GI recommendations (Becca Venegas MD R1) Attending Attestation Case reviewed and discussed with the resident team. Agree with plan of care as discussed with me and documented in the resident note. (Moose Simms MD) Problem List: (1) Ascites Status: Acute Plan: Paracentesis performed in the ED on admission. Currently being managed with diuretics No SBP on fluid culture On exam, appears well. Afebrile. 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 Denies alcohol use since December 17, 2015. Reports good family support as well as support from [employer]. * Offered community resources, patient declined * Rally pack (5) Nutrition, metabolism, and development symptoms Status: Acute Plan: Diet: Heart healthy diet Electrolytes: Normal, continue to monitor. K+ normal Fluids: SLIV (6) Deep vein thrombosis (DVT) prophylaxis prescribed at discharge Status: Acute Plan: DVT prophylaxis: SCDs, ambulation. Avoid chemical prophylaxis with liver failure GI prophylaxis: Protonix 40 mg by mouth daily Vitals every 4 Out of bed ad zoraida Monitor electrolytes replace accordingly (Becca Venegas MD R1) Problem Qualifiers (1) Ascites: Qualified Code: K70.11 - Ascites due to alcoholic hepatitis (2) Liver failure: Qualified Code: K72.10 - Chronic liver failure without hepatic coma Becca Venegas MD R1 July 22, 2016 07:51 Moose Simms MD July 22, 2016 14:14
[2016-07-22 08:00] VITALS: BP 128/65; PULSE 103; PULSE 98; RESP 12; TEMP 98.5; O2SAT 95
[2016-07-22] MEDS: SODIUM CHLORIDE 0.9% FLUSH 10 ML FLUSH IV FLUSH SCH ×2 (08:07→20:25)
[2016-07-22] MEDS: FOLIC ACID 1 MG TAB PO SCH (08:08)
[2016-07-22] MEDS: MULTIVITAMINS/MINERALS THERAPEUTIC TAB PO SCH (08:08)
[2016-07-22] MEDS: SPIRONOLACTONE 25 MG TAB PO SCH (08:08)
[2016-07-22] MEDS: THIAMINE HCL 100 MG TAB PO SCH (08:08)
[2016-07-22] MEDS: FUROSEMIDE 40 MG TAB PO SCH (08:08)
[2016-07-22] MEDS: PANTOPRAZOLE SOD 40 MG DELAYED RELEASE TAB PO SCH (08:08)
[2016-07-22] MEDS: LACTULOSE SYRUP 20 GM/30 ML CUP PO SCH (08:10)
[2016-07-22 08:28] LABS: HEMATOCRIT 25.6 % (35.0-46.0); MEAN CELL VOLUME 98.4 FL (80.0-100.0); MEAN CORPUSCULAR HEMOGLOBIN 33.9 PG (27.0-34.0); MEAN CORPUSCULAR HGB CONC 34.5 % (32.0-36.0); PLATELET COUNT 82 TH/MM3 (150-450); RED CELL DISTRIBUTION WIDTH 20.1 % (11.6-17.2); WHITE BLOOD COUNT 9.6 TH/MM3 (4.0-11.0)
[2016-07-22 08:33] LABS: REVIEW FLAG FINAL
[2016-07-22 09:07] LABS: ALKALINE PHOSPHATASE 110 U/L (45-117); ALT (GPT) 23 U/L (10-53); ANION GAP 9 MEQ/L (5-15); AST (GOT) 83 U/L (15-37); BICARBONATE 26.8 MEQ/L (21.0-32.0); BLOOD UREA NITROGEN 9 MG/DL (7-18); CHLORIDE 101 MEQ/L (98-107); GLOMERULAR FILTRATION RATE 107 ML/MIN (>89); POTASSIUM 3.8 MEQ/L (3.5-5.1); SODIUM (NA) 137 MEQ/L (136-145); TOTAL BILIRUBIN ADULT 14.5 MG/DL (0.2-1.0)
[2016-07-22] MEDS: CHOLESTYRAMINE 4 GM PACKET PO SCH (11:41)
[2016-07-22 12:00] VITALS: BP 125/77; PULSE 93; RESP 16; TEMP 98.6; O2SAT 97
[2016-07-22 16:00] VITALS: BP 132/66; PULSE 93; RESP 16; TEMP 98.1; O2SAT 97
--- NOTE | 2016-07-22 17:35 | HHI.GIFU ---
Subjective Remarks Pt overall feeling better today Less abd pain and distension. No N/V Tolerating her diet. Moving her bowels (Tierra Dickerson) Objective Vitals I&O Vital Signs Date Time Temp Pulse Resp B/P Pulse Ox O2 Delivery O2 Flow Rate FiO2 07/22/16 12:00 98.6 93 16 125/77 97 07/22/16 08:00 98.5 103 12 128/65 95 07/22/16 04:00 98.5 104 20 139/62 96 07/22/16 00:00 Room Air 07/22/16 00:00 98.5 93 22 127/67 96 07/21/16 21:30 Room Air 07/21/16 20:00 98.5 93 22 129/63 95 07/21/16 20:00 95 I/O 07/21/16 07/21/16 07/21/16 07/22/16 07/22/16 07/22/16 07:00 15:00 23:00 07:00 15:00 23:00 Intake Total 240 ml 325 ml 480 ml 320 ml 0 ml Output Total 325 ml 550 ml 800 ml 450 ml Balance -85 ml -225 ml -320 ml -130 ml 0 ml Intake Oral 240 ml 325 ml 480 ml 320 ml IV Total 0 ml 0 ml Output Urine Total 325 ml 550 ml 800 ml 450 ml # Bowel Movements 0 1 0 0 Laboratory Laboratory Tests Test 07/22/16 08:07 White Blood Count 9.6 Red Blood Count 2.60 Hemoglobin 8.8 Hematocrit 25.6 Mean Corpuscular Volume 98.4 Mean Corpuscular Hemoglobin 33.9 Mean Corpuscular Hemoglobin 34.5 Concent Red Cell Distribution Width 20.1 Platelet Count 82 Mean Platelet Volume 7.3 Sodium Level 137 Potassium Level 3.8 Chloride Level 101 Carbon Dioxide Level 26.8 Anion Gap 9 Blood Urea Nitrogen 9 Creatinine 0.62 Estimat Glomerular Filtration 107 Rate Random Glucose 112 Calcium Level 8.5 Total Bilirubin 14.5 Aspartate Amino Transf 83 (AST/SGOT) Alanine Aminotransferase 23 (ALT/SGPT) Alkaline Phosphatase 110 Total Protein 5.8 Albumin 2.8 Date/Time Procedure Status Source Growth 07/19/16 21:10 Urine Culture - Final Complete Urine Clean Catch <10,000 CFU/ML GRAM POSITIVE EMILY Imaging Last Impressions Cyst Biopsy Asp-Paracentesis US 07/17/16 0000 Signed Impressions: Service Date/Time: Sunday, July 17, 2016 14:37 - CONCLUSION: Uncomplicated ultrasound guided paracentesis. Michoacano Hernandez MD Physical Exam HEENT: Pupils round and reactive to light; normocephalic; atraumatic; +icterus. CHEST: CTA CARDIAC: RRR, + murmur ABDOMEN: +BS, semi-firm, mildly distended, RUQ tenderness EXTREMITIES: Bilateral LE edema. SKIN: + jaundice DYE OPERATOR: No focal deficits; alert and oriented times three. (Tierra Dickerson) Assessment and Plan Plan ASSESSMENT - Jaundice, elevated LFTs, ascites. Pt with history of heavy alcohol use and liver cirrhosis was was admitted for worsening abdominal distention/pain, fevers, LE edema. She was found to have ascites on abdominal ultrasound. s/p Paracentesis with 4L removed. Negative cytology. Exacerbation poss r/t recent Tylenol use. Lasix 40mg po daily. Aldactone 100mg po daily. Pt has been in a negative fluid balance the last few days - Liver cirrhosis. Pt was admitted earlier this month and had EGD 07-02-16 found portal HTN, no varices; US liver --> liver enlarged to 20cm suspected hepatocellular dz, splenomegaly 18.6 cm, no free fluid, cholecystectomy. Prev liver w/u neg for hepatitis, autoimmune dz. Lactulose, pentoxifylline. Pt has a prior history of heavy alcohol use, up to 4-5 shots of vodka every 4-5 hours almost daily for about 1-2 years. After this time period had occasional alcohol use. Denies alcohol use since December 17, 2015 - Anemia-. H/H is stable. s/p one unit of blood, no bleeding reported - Thrombocytopenia- secondary to cirrhosis - Coagulopathy PLAN - Cont. Spironolactone 100mg po daily and Lasix 40mg po daily. - Monitor I&O - Low sodium diet - Cont. lactulose - Pentoxifylline 400mg Q8H - CBC , CMP, PT/INR in am - Consider liver bx likely as an outpt once pt is more stable to get a baseline look at her liver status. - Supportive care - The pt was seen and examined by myself and Dr Darden and this note is written on his behalf. (Tierra Dickerson) Physician Comments Seen and examined, plan as above, will need evaluation for possible liver transplant as outpatient once discharged from the hospital. (Catracho Darden MD) Tierra Dickerson July 22, 2016 17:35 Catracho Darden MD July 23, 2016 04:58
[2016-07-22 20:00] VITALS: BP 126/59; PULSE 92; RESP 18; TEMP 98.5; O2SAT 97
[2016-07-23] VITALS (7 sets, daily range): BP systolic 118–134; BP diastolic 58–71; PULSE 91–98; RESP 12–18; TEMP 98.4–98.8; O2SAT 95–98
[2016-07-23] MEDS: MORPHINE SULFATE 4 MG/ML INJ IV PRN ×8 (04:06→20:52)
[2016-07-23] MEDS: SODIUM CHLORIDE 0.9% FLUSH 10 ML FLUSH IV FLUSH PRN (04:06)
[2016-07-23] MEDS: PENTOXIFYLLINE 400 MG CONTROLLED RELEASE TAB PO SCH ×3 (05:15→20:51)
[2016-07-23 07:14] LABS: HEMATOCRIT 25.5 % (35.0-46.0); MEAN CELL VOLUME 99.2 FL (80.0-100.0); MEAN CORPUSCULAR HEMOGLOBIN 34.8 PG (27.0-34.0); MEAN CORPUSCULAR HGB CONC 35.1 % (32.0-36.0); PLATELET COUNT 75 TH/MM3 (150-450); RED BLOOD COUNT 2.57 MIL/MM3 (4.00-5.30); RED CELL DISTRIBUTION WIDTH 19.9 % (11.6-17.2); WHITE BLOOD COUNT 8.4 TH/MM3 (4.0-11.0)
[2016-07-23 07:19] LABS: REVIEW FLAG FINAL
[2016-07-23 07:36] LABS: ALT (GPT) 24 U/L (10-53); ANION GAP 11 MEQ/L (5-15); AST (GOT) 89 U/L (15-37); BICARBONATE 26.7 MEQ/L (21.0-32.0); BLOOD UREA NITROGEN 8 MG/DL (7-18); CHLORIDE 101 MEQ/L (98-107); GLOMERULAR FILTRATION RATE 123 ML/MIN (>89); POTASSIUM 3.9 MEQ/L (3.5-5.1); SODIUM (NA) 139 MEQ/L (136-145)
[2016-07-23 07:38] LABS: ALKALINE PHOSPHATASE 109 U/L (45-117); TOTAL BILIRUBIN ADULT 13.7 MG/DL (0.2-1.0)
[2016-07-23] MEDS: CHOLESTYRAMINE 4 GM PACKET PO SCH (08:47)
[2016-07-23] MEDS: FOLIC ACID 1 MG TAB PO SCH (08:47)
[2016-07-23] MEDS: PANTOPRAZOLE SOD 40 MG DELAYED RELEASE TAB PO SCH (08:47)
[2016-07-23] MEDS: THIAMINE HCL 100 MG TAB PO SCH (08:47)
[2016-07-23] MEDS: FUROSEMIDE 40 MG TAB PO SCH (08:47)
[2016-07-23] MEDS: MULTIVITAMINS/MINERALS THERAPEUTIC TAB PO SCH (08:47)
[2016-07-23] MEDS: SODIUM CHLORIDE 0.9% FLUSH 10 ML FLUSH IV FLUSH SCH ×2 (08:47→20:53)
[2016-07-23] MEDS: SPIRONOLACTONE 25 MG TAB PO SCH (08:47)
[2016-07-23] MEDS: LACTULOSE SYRUP 20 GM/30 ML CUP PO SCH (08:47)
--- NOTE | 2016-07-23 10:13 | HHI.FPPN ---
Subjective Remarks Patient seen and examined this morning. Afebrile vital signs stable. Patient is awaiting repeat paracentesis planned for today. She understands that discharge is pending GIs recommendations. She feels that her lower extremity swelling as a result. Her abdominal swelling is still present but not as distended or painful. She thinks that the jaundice of her skin is also improved. Endorses: Jaundice, mild abdominal pain, abdominal distention, ascites Denies: Fever, chills, nausea, vomiting, shortness of breath, chest pain, headache, calf pain (Garry Benson MD R2) Objective Vitals Vital Signs Date Time Temp Pulse Resp B/P Pulse Ox O2 Delivery O2 Flow Rate FiO2 07/23/16 08:00 98.4 97 16 118/58 95 07/23/16 04:00 98.4 98 18 124/61 96 07/23/16 00:00 98.6 98 18 120/61 96 07/22/16 20:00 98.5 92 18 126/59 97 07/22/16 20:00 92 07/22/16 16:00 98.1 93 16 132/66 97 07/22/16 12:00 98.6 93 16 125/77 97 I/O 07/22/16 07/22/16 07/22/16 07/23/16 07/23/16 07/23/16 07:00 15:00 23:00 07:00 15:00 23:00 Intake Total 320 ml 960 ml 2 ml 13 ml Output Total 450 ml 1100 ml 350 ml Balance -130 ml -140 ml 2 ml -337 ml Intake Oral 320 ml 960 ml IV Total 0 ml 2 ml 13 ml Output Urine Total 450 ml 1100 ml 350 ml # Voids 1 1 # Bowel Movements 0 (Garry Benson MD R2) Result Diagram: 07/23/16 0623 07/23/16 0623 Imaging Last Impressions Cyst Biopsy Asp-Paracentesis US 07/17/16 0000 Signed Impressions: Service Date/Time: Sunday, July 17, 2016 14:37 - CONCLUSION: Uncomplicated ultrasound guided paracentesis. Michoacano Hernandez MD Objective Remarks O. CONSTITUTIONAL/GEN: normally nourished, in NAD. LUNGS: clear A-P, respiratory effort is normal. CARDIOVASCULAR: Tachycardic rate without murmur or gallop. No edema noted in lower extremities GI/ABD: ascites without masses or palpable megaly. Minimally tender to direct palpation in the right quadrant. No guarding or rebound. NEURO: No focal deficits. SKIN: color is jaundiced. MUSC: back is normal in appearance. Extremities are normal in appearance. PSYCH/MENTAL STATUS: Alert and oriented x 3. Procedures Paracentesis Medications and IVs Current Medications Medications (Trade) Dose Ordered Sig/Ric Route Start Time Stop Time Status Last Admin (NS Flush) 2 ml UNSCH PRN IV FLUSH 07/17/16 14:30 07/23/16 04:06 (NS Flush) 2 ml BID IV FLUSH 07/17/16 21:00 07/23/16 08:47 (Zofran Inj) 4 mg Q6H PRN IVP 07/17/16 14:30 (Senokot) 17.2 mg Q12H PRN PO 07/17/16 14:30 (Restoril) 15 mg HS PRN PO 07/17/16 14:30 (Narcan Inj) 0.4 mg UNSCH PRN IV 07/17/16 14:30 (Morphine Inj) 2 mg Q2H PRN IV 07/17/16 14:30 07/23/16 08:48 (Protonix) 40 mg DAILY PO 07/18/16 09:00 07/23/16 08:47 (Folate) 1 mg DAILY PO 07/18/16 09:00 07/23/16 08:47 (Lactulose Liq) 30 ml DAILY PO 07/18/16 09:00 07/23/16 08:47 (Theragran M Tab) 1 tab DAILY PO 07/18/16 09:00 07/23/16 08:47 (TRENtal SR) 400 mg Q8HR PO 07/17/16 22:00 07/23/16 05:15 (Vitamin B1) 100 mg DAILY PO 07/18/16 09:00 07/23/16 08:47 (Aldactone) 100 mg DAILY PO 07/20/16 09:00 07/23/16 08:47 (Lasix) 40 mg DAILY PO 07/21/16 09:00 07/23/16 08:47 (Questran 4 Gm Pkt) 4 gm DAILY PO 07/22/16 10:00 5/28/17 08:47 (Garry Benson MD R2) A/P Assessment and Plan 41-year-old female with history of heavy alcohol use and liver cirrhosis admitted for worsening abdominal distention with abdominal pain, fevers at home , worsening lower extremity edema, found to have ascites on abdominal ultrasound. Paracentesis was performed on the day of admission. GI was consulted and has been following her during her hospitalization. wdw: Dr. Simms Discharge Planning Pending GI recommendations (Garry Benson MD R2) Attending Attestation Case reviewed and discussed with the resident team. Agree with plan of care as discussed with me and documented in the resident note. (Moose Simms MD) Problem List: (1) Ascites Status: Acute Plan: Paracentesis performed in the ED on admission. Currently being managed with diuretics No SBP on fluid culture On exam, appears well. Afebrile. 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 Denies alcohol use since December 17, 2015. 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 * Offered community resources, patient declined * Rally pack (5) Nutrition, metabolism, and development symptoms Status: Acute Plan: Diet: Heart healthy diet Electrolytes: Normal, continue to monitor. K+ normal Fluids: SLIV (6) Deep vein thrombosis (DVT) prophylaxis prescribed at discharge Status: Acute Plan: DVT prophylaxis: SCDs, ambulation. Avoid chemical prophylaxis with liver failure GI prophylaxis: Protonix 40 mg by mouth daily Vitals every 4 Out of bed ad zoraida Monitor electrolytes replace accordingly (Garry Benson MD R2) Problem Qualifiers (1) Ascites: Qualified Code: K70.11 - Ascites due to alcoholic hepatitis (2) Liver failure: Qualified Code: K72.10 - Chronic liver failure without hepatic coma Garry Benson MD R2 July 23, 2016 10:13 Moose Simms MD July 24, 2016 12:22
--- NOTE | 2016-07-23 12:23 | HHI.GIFU ---
Subjective Remarks No specific symptoms except for slight abdominal fullness Objective Vitals I&O Vital Signs Date Time Temp Pulse Resp B/P Pulse Ox O2 Delivery O2 Flow Rate FiO2 07/23/16 08:00 98.4 97 16 118/58 95 07/23/16 04:00 98.4 98 18 124/61 96 07/23/16 00:00 98.6 98 18 120/61 96 07/22/16 20:00 98.5 92 18 126/59 97 07/22/16 20:00 92 07/22/16 16:00 98.1 93 16 132/66 97 I/O 07/22/16 07/22/16 07/22/16 07/23/16 07/23/16 07/23/16 07:00 15:00 23:00 07:00 15:00 23:00 Intake Total 320 ml 960 ml 2 ml 13 ml Output Total 450 ml 1100 ml 350 ml Balance -130 ml -140 ml 2 ml -337 ml Intake Oral 320 ml 960 ml IV Total 0 ml 2 ml 13 ml Output Urine Total 450 ml 1100 ml 350 ml # Voids 1 1 # Bowel Movements 0 Laboratory Laboratory Tests Test 07/23/16 06:23 White Blood Count 8.4 Red Blood Count 2.57 Hemoglobin 9.0 Hematocrit 25.5 Mean Corpuscular Volume 99.2 Mean Corpuscular Hemoglobin 34.8 Mean Corpuscular Hemoglobin 35.1 Concent Red Cell Distribution Width 19.9 Platelet Count 75 Mean Platelet Volume 7.7 Sodium Level 139 Potassium Level 3.9 Chloride Level 101 Carbon Dioxide Level 26.7 Anion Gap 11 Blood Urea Nitrogen 8 Creatinine 0.55 Estimat Glomerular Filtration 123 Rate Random Glucose 98 Calcium Level 8.4 Total Bilirubin 13.7 Aspartate Amino Transf 89 (AST/SGOT) Alanine Aminotransferase 24 (ALT/SGPT) Alkaline Phosphatase 109 Total Protein 5.8 Albumin 2.7 Date/Time Procedure Status Source Growth 07/19/16 21:10 Urine Culture - Final Complete Urine Clean Catch <10,000 CFU/ML GRAM POSITIVE EMILY Physical Exam HEENT: Pupils round and reactive to light; normocephalic; atraumatic; +icterus. CHEST: CTA CARDIAC: RRR, + murmur ABDOMEN: +BS, semi-firm, mildly distended, No tenderness EXTREMITIES: No edema. SKIN: + jaundice RECORD PRESSMAN: No focal deficits; alert and oriented times three. Assessment and Plan Plan ASSESSMENT - Jaundice, elevated LFTs, ascites. Pt with history of heavy alcohol use and liver cirrhosis was was admitted for worsening abdominal distention/pain, fevers, LE edema. She was found to have ascites on abdominal ultrasound. s/p Paracentesis with 4L removed. Negative cytology. Exacerbation poss r/t recent Tylenol use. Lasix 40mg po daily. Aldactone 100mg po daily. Pt has been in a negative fluid balance the last few days - Liver cirrhosis. Pt was admitted earlier this month and had EGD 07-02-16 found portal HTN, no varices; US liver --> liver enlarged to 20cm suspected hepatocellular dz, splenomegaly 18.6 cm, no free fluid, cholecystectomy. Prev liver w/u neg for hepatitis, autoimmune dz. Lactulose, pentoxifylline. Pt has a prior history of heavy alcohol use, up to 4-5 shots of vodka every 4-5 hours almost daily for about 1-2 years. After this time period had occasional alcohol use. Denies alcohol use since December 17, 2015 - Anemia-. H/H is stable. s/p one unit of blood, no bleeding reported - Thrombocytopenia- secondary to cirrhosis - Coagulopathy PLAN - Cont. Spironolactone 100mg po daily and Lasix 40mg po daily. - Monitor I&O - Low sodium diet - Cont. lactulose - Pentoxifylline 400mg Q8H - CBC , CMP, PT/INR in am - Consider liver bx and liver transplant evaluation as out patient - Supportive care - Stable from GI point of view, please reconsult us if needed. Catracho Darden MD July 23, 2016 12:23
[2016-07-24] VITALS: BP 125/91; PULSE 84; RESP 18; TEMP 98.2; O2SAT 94
[2016-07-24] MEDS: MORPHINE SULFATE 4 MG/ML INJ IV PRN ×2 (00:46→08:43)
[2016-07-24 04:00] VITALS: BP 126/60; PULSE 90; RESP 18; TEMP 97.4; O2SAT 95
[2016-07-24] MEDS: PENTOXIFYLLINE 400 MG CONTROLLED RELEASE TAB PO SCH (05:21)
--- NOTE | 2016-07-24 06:46 | HHI.DCPOC ---
Discharge Care Plan Diagnosis: (1) Splenomegaly (2) Ascites (3) Liver failure (4) SOB (shortness of breath) (5) History of alcohol abuse (6) ZACHARY (acute kidney injury) (7) Elevated liver enzymes Goals to Promote Your Health * To prevent worsening of your condition and complications * To maintain your health at the optimal level Directions to Meet Your Goals Take your medications as prescribed Follow your dietary instruction Follow activity as directed Keep your appointments as scheduled Take your immunizations and boosters as scheduled If your symptoms worsen call your PCP, if no PCP go to Urgent Care Center or Emergency Room Smoking is Dangerous to Your Health. Avoid second hand smoke Call the 24-hour hour crisis hotline for domestic abuse at Becca Venegas MD R1 July 24, 2016 06:46
[2016-07-24 08:00] VITALS: BP 122/62; PULSE 90; RESP 16; TEMP 98.1; O2SAT 94
[2016-07-24 08:23] LABS: HEMATOCRIT 26.7 % (35.0-46.0); MEAN CELL VOLUME 99.1 FL (80.0-100.0); MEAN CORPUSCULAR HEMOGLOBIN 33.5 PG (27.0-34.0); MEAN CORPUSCULAR HGB CONC 33.8 % (32.0-36.0); PLATELET COUNT 74 TH/MM3 (150-450); RED BLOOD COUNT 2.69 MIL/MM3 (4.00-5.30); RED CELL DISTRIBUTION WIDTH 20.2 % (11.6-17.2); WHITE BLOOD COUNT 8.5 TH/MM3 (4.0-11.0)
[2016-07-24 08:26] LABS: REVIEW FLAG FINAL
[2016-07-24] MEDS ORDERED: RANI150T PO (08:30)
[2016-07-24] MEDS ORDERED: SPIR100T PO (08:30)
[2016-07-24] MEDS ORDERED: FURO40TA PO (08:30)
[2016-07-24] MEDS ORDERED: NORC5TAB PO (08:32)
[2016-07-24] MEDS: LACTULOSE SYRUP 20 GM/30 ML CUP PO SCH (08:39)
[2016-07-24] MEDS: PANTOPRAZOLE SOD 40 MG DELAYED RELEASE TAB PO SCH (08:40)
[2016-07-24] MEDS: MULTIVITAMINS/MINERALS THERAPEUTIC TAB PO SCH (08:40)
[2016-07-24] MEDS: THIAMINE HCL 100 MG TAB PO SCH (08:40)
[2016-07-24] MEDS: SPIRONOLACTONE 25 MG TAB PO SCH (08:40)
[2016-07-24] MEDS: FOLIC ACID 1 MG TAB PO SCH (08:40)
[2016-07-24] MEDS: FUROSEMIDE 40 MG TAB PO SCH (08:40)
[2016-07-24] MEDS: SODIUM CHLORIDE 0.9% FLUSH 10 ML FLUSH IV FLUSH SCH (08:44)
[2016-07-24 08:48] LABS: BICARBONATE 26.1 MEQ/L (21.0-32.0); POTASSIUM 4.1 MEQ/L (3.5-5.1)
--- NOTE | 2016-07-24 09:01 | HHI.FPPN ---
Subjective Remarks Patient is doing well this morning, only complains of slight abdominal discomfort. She denies shortness of breath or chest pain. She has no nausea or vomiting, and her legs do not hurt at all. She really wants to go home today. ( Becca Venegas MD R1) Objective Vitals Vital Signs Date Time Temp Pulse Resp B/P Pulse Ox O2 Delivery O2 Flow Rate FiO2 07/24/16 04:00 97.4 90 18 126/60 95 07/24/16 00:00 98.2 84 18 125/91 94 07/23/16 20:00 98.6 92 18 134/64 98 07/23/16 19:00 92 07/23/16 16:00 98.4 91 12 131/70 97 07/23/16 12:00 98.8 92 16 133/71 97 I/O 07/23/16 07/23/16 07/23/16 07/24/16 07/24/16 07/24/16 07:00 15:00 23:00 07:00 15:00 23:00 Intake Total 13 ml 1000 ml 240 ml 120 ml Output Total 350 ml 850 ml 550 ml 400 ml Balance -337 ml 150 ml -310 ml -280 ml Intake Oral 1000 ml 240 ml 120 ml IV Total 13 ml Output Urine Total 350 ml 850 ml 550 ml 400 ml # Voids 1 # Bowel Movements 0 0 0 (Becca Venegas MD R1) Result Diagram: 07/24/16 0736 07/24/16 0736 Objective Remarks O. CONSTITUTIONAL/GEN: normally nourished, in NAD. LUNGS: clear A-P, no increased work of breathing CARDIOVASCULAR: Tachycardic rate without murmur or gallop. No edema noted in lower extremities GI/ABD: ascites without masses or palpable megaly. Minimally tender to direct palpation in the right quadrant. No guarding or rebound. NEURO: No focal deficits. SKIN: color is jaundiced. MUSC: back is normal in appearance. Extremities are normal in appearance. No signs of edema PSYCH/MENTAL STATUS: Alert and oriented x 3. Procedures Paracentesis (Becca Venegas MD R1) A/P Assessment and Plan 41-year-old female with history of heavy alcohol use and liver cirrhosis admitted for worsening abdominal distention with abdominal pain, fevers at home , worsening lower extremity edema, found to have ascites on abdominal ultrasound. Paracentesis was performed on the day of admission with removal of about 3-4 L of fluid. GI was consulted and opted for medical management throughout her hospital stay with furosemide, pentoxifylline, and spironolactone. She continued to improve throughout her stay with adequate diuresis. Her abdominal distention markedly improved and pedal edema resolved. She was discharged home in stable condition to follow up with her PCP and GI as an outpatient. wdw: Dr. Simms Discharge Planning Pending GI recommendations (Becca Venegas MD R1) Attending Attestation Case reviewed and discussed with the resident team. Agree with plan of care as discussed with me and documented in the resident note. (Moose Simms MD) Problem List: (1) Ascites Status: Acute Plan: Paracentesis performed in the ED on admission. Currently being managed with diuretics No SBP on fluid culture On exam, appears well. Afebrile. 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 Denies alcohol use since December 17, 2015. 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 * Offered community resources, patient declined * Rally pack (5) Nutrition, metabolism, and development symptoms Status: Acute Plan: Diet: Heart healthy diet Electrolytes: Normal, continue to monitor. K+ normal Fluids: SLIV (6) Deep vein thrombosis (DVT) prophylaxis prescribed at discharge Status: Acute Plan: DVT prophylaxis: SCDs, ambulation. Avoid chemical prophylaxis with liver failure GI prophylaxis: Protonix 40 mg by mouth daily Vitals every 4 Out of bed ad zoraida Monitor electrolytes replace accordingly (Becca Venegas MD R1) Problem Qualifiers (1) Ascites: Qualified Code: K70.11 - Ascites due to alcoholic hepatitis (2) Liver failure: Qualified Code: K72.10 - Chronic liver failure without hepatic coma Becca Venegas MD R1 July 24, 2016 09:01 Moose Simms MD July 24, 2016 12:31
--- NOTE | 2016-07-24 09:02 | HHI.DS ---
Discharge Summary Admission Date July 18, 2016 at 09:56 Discharge Date: July 24, 2016 Admitting Diagnosis New Ascites, Liver failure (1) Ascites Diagnosis: Principal (2) Liver failure Diagnosis: Principal (3) Pancytopenia Diagnosis: Principal (4) History of alcohol abuse Diagnosis: Principal Procedures Paracentesis Brief History 41-year-old female with liver failure 2/2 alcohol use presents emergency department for evaluation of abdominal swelling, leg swelling and abdominal pain ongoing and worsening since last Sunday. -Admitted here earlier this month for acute liver failure. -Denies a history of ascites or abdominal paracentesis -Had lower extremity swelling in the past, but states it got better with her water pills -Tried taking her medications this past week but this did not help with the swelling. -History of alcoholism, quit drinking completely December 17, 2015, and states that she has not had any alcohol since this time -Complains of shortness of breath which she attributes to the fluid pushing on her belly -She reports on and off fevers over the last week. Last Sunday she had a temp of 102, had a fever again on Sunday and yesterday it was 100.2. She denies chest pain, nausea, or vomiting -Yellowing of her skin and her eyes has overall improved since previous admission. It is still present, but she says it is much improved compared to prior. 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 Denies having a history of any blood clots. -Was diagnosed with diabetes 2 years ago (unsure of type I or 2), but is not on any medications currently. Previously on metformin and glipizide, and says these were discontinued after being diagnosed with liver disease due to interactions with current medication. Checks glucose at home and it ranges 130- 180. Does not follow a diabetic diet, but states that she "does not eat much anyway". On 07/05/16 during prior admission EGD showed portal hypertension, no esophageal varices, and a hiatal hernia Patient's insurance, [place] Medicaid, is currently pending. She is awaiting an appointment with her primary care doctor to get a referral to see a culinary arts instructor locally. She has not yet established with a GI physician in [place]. CBC/BMP: 07/24/16 0736 07/24/16 0736 Significant Findings Laboratory Tests Test 07/22/16 07/23/16 07/24/16 08:07 06:23 07:36 Red Blood Count 2.60 MIL/MM3 2.57 MIL/MM3 2.69 MIL/MM3 (4.00-5.30) (4.00-5.30) (4.00-5.30) Hemoglobin 8.8 GM/DL 9.0 GM/DL 9.0 GM/DL (11.6-15.3) (11.6-15.3) (11.6-15.3) Hematocrit 25.6 % 25.5 % 26.7 % (35.0-46.0) (35.0-46.0) (35.0-46.0) Red Cell Distribution Width 20.1 % 19.9 % 20.2 % (11.6-17.2) (11.6-17.2) (11.6-17.2) Platelet Count 82 TH/MM3 75 TH/MM3 74 TH/MM3 (150-450) (150-450) (150-450) Random Glucose 112 MG/DL (74-106) Total Bilirubin 14.5 MG/DL 13.7 MG/DL (0.2-1.0) (0.2-1.0) Aspartate Amino Transf 83 U/L (15-37) 89 U/L (15-37) (AST/SGOT) Total Protein 5.8 GM/DL 5.8 GM/DL (6.4-8.2) (6.4-8.2) Albumin 2.8 GM/DL 2.7 GM/DL (3.4-5.0) (3.4-5.0) Mean Corpuscular Hemoglobin 34.8 PG (27.0-34.0) Calcium Level 8.4 MG/DL (8.5-10.1) Creatinine 0.49 MG/DL (0.50-1.00) PE at Discharge O. CONSTITUTIONAL/GEN: normally nourished, in NAD. LUNGS: clear A-P, respiratory effort is normal. CARDIOVASCULAR: Tachycardic rate without murmur or gallop. No edema noted in lower extremities GI/ABD: ascites without masses or palpable megaly. Minimally tender to direct palpation in the right quadrant. No guarding or rebound. NEURO: No focal deficits. SKIN: color is jaundiced. MUSC: back is normal in appearance. Extremities are normal in appearance. PSYCH/MENTAL STATUS: Alert and oriented x 3. Hospital Course 41-year-old female with history of heavy alcohol use and liver cirrhosis admitted for worsening abdominal distention with abdominal pain, fevers at home , worsening lower extremity edema, found to have ascites on abdominal ultrasound. Paracentesis was performed on the day of admission with removal of about 3-4 L of fluid. GI was consulted and opted for medical management throughout her hospital stay with furosemide, pentoxifylline, and spironolactone. She continued to improve throughout her stay with adequate diuresis. Her abdominal distention markedly improved and pedal edema resolved. She was discharged home in stable condition to follow up with her PCP and GI as an outpatient. Pt Condition on Discharge: Stable Discharge Disposition: Discharge Home Discharge Instructions DIET: Follow Instructions for: As Tolerated, No Restrictions Activities you can perform: Regular-No Restrictions Follow up Referrals: Gastroenterology - 1 Week PCP Follow-up - 1 Week New Medications: Hydrocodone-Acetaminophen (Eure) 5-325 mg Tab 1 TAB PO Q6H PRN PAIN #30 Ref 0 TAB Ranitidine (Ranitidine) 150 Mg Tab 150 MG PO DAILY Heartburn Management #30 Ref 0 TAB Spironolactone (Spironolactone) 100 Mg Tab 100 MG PO DAILY #30 Ref 0 TAB Furosemide (Furosemide) 40 Mg Tab 40 MG PO DAILY #30 TAB Continued Medications: Zeeoq-Mfr-Rzroogelb-K Gluc-Cou (Water Pills) 1 Tab 1 TAB PO BID Folic Acid (Folate) 1 Mg Tab 1 MG PO DAILY Nutritional Supplement Days 30 Ref 0 TAB Lactulose Liq (Lactulose Liq) 10 Gm/15 Ml Soln 30 ML PO DAILY laxative Days 14 Ref 1 ML Multiple Vitamins W/ Minerals (Multivitamin Adults) 1 Tab 1 TAB PO DAILY Nutritional Supplement Days 30 Ref 0 TAB Pentoxifylline ER (Pentoxifylline ER) 400 Mg Tab 400 MG PO Q8HR hepatitis Days 28 Ref 0 TAB Thiamine (Vitamin B-1) 100 Mg Tab 100 MG PO DAILY vitamin Days 30 Ref 0 TAB Discontinued Medications: Pantoprazole (Pantoprazole) 40 Mg Tab 40 MG PO DAILY@06 ppi Days 30 Ref 0 TAB Becca Venegas MD R1 July 24, 2016 09:01
[2016-07-24] MEDS: CHOLESTYRAMINE 4 GM PACKET PO SCH (10:14)
== END 2016-07-24 10:17 | disposition home or self-care (01) | DRG 433 ==
LOC: NEPE 08:31 → NEDA 13:03 → NEPFCDU 14:54 → OBSVTOIN 07-18 09:56 → N04B 07-19 00:32
PROVIDERS: ADMIT Family Medicine; ATTEND Family Medicine
PROC: 0W9G3ZX Drainage of Peritoneal Cavity, Percutaneous Approach, Diagnostic (ICD-10-PCS; principal; 2016-07-17)
PROC: 30233N1 Transfusion of Nonautologous Red Blood Cells into Peripheral Vein, Percutaneous Approach (ICD-10-PCS; 2016-07-20)
DX: K70.31 Alcoholic cirrhosis of liver with ascites (principal); K76.6 Portal hypertension; N17.9 Acute kidney failure, unspecified; D61.818 Other pancytopenia; D68.4 Acquired coagulation factor deficiency; D69.59 Other secondary thrombocytopenia; K70.40 Alcoholic hepatic failure without coma; E11.9 Type 2 diabetes mellitus without complications; G47.00 Insomnia, unspecified; K59.00 Constipation, unspecified; F10.21 Alcohol dependence, in remission; K70.11 Alcoholic hepatitis with ascites; Z79.84 Long term (current) use of oral hypoglycemic drugs
CPT/HCPCS: 36430; 49083; 80048; 80053; 80061; 81001; 82042; 82105; 82140; 82945; 83605; 83615; 83690; 84157; 84703; 85025; 85027; 85610; 85730; 86077; 86850; 86870; 86900; 86901; 86902; 86920; 86922; 87040; 87070; 87086; 87205; 89051; 99285; C1729; G0378; J0696; J2270; J2405; J3430; J7050; P9016; P9047

== ENCOUNTER 2016-08-06 17:46 | Inpatient (IN) | payer OTHER ==
[~2016-08-06] VITALS: Ht 160 cm; Wt 67.6 kg
[~2016-08-06 17:46] MED LIST changes: +FURO40TA PO; +NORC5TAB PO; -PANT40TA3 PO; +RANI150T PO; +SPIR100T PO; +[UNRECOGNIZED DRUG - CODE] PO
[2016-08-06 17:47] VITALS: BP 143/77; PULSE 129; RESP 20; TEMP 99.4; O2SAT 96
[2016-08-06 17:58] VITALS: BP 118/67; PULSE 110; RESP 20; O2SAT 98
[2016-08-06] MEDS ORDERED: FOLI1TAB6 PO (18:17)
[2016-08-06] MEDS ORDERED: MULTTAB25 PO (18:17)
[2016-08-06] MEDS ORDERED: FURO1TAB60 PO (18:17)
[2016-08-06] MEDS ORDERED: VITA250T25 PO (18:17)
[2016-08-06] MEDS ORDERED: ONDANSETRON HCL 4 MG/2 ML VIAL IVP ONE (18:30)
[2016-08-06] MEDS ORDERED: FUROSEMIDE 40 MG/4 ML VIAL IV PUSH ONE (18:30)
[2016-08-06] MEDS ORDERED: SODIUM CHLORIDE 0.9% FLUSH 10 ML FLUSH IV FLUSH PRN ×2 (18:30→20:15)
--- NOTE | 2016-08-06 18:32 | PD ---
HPI Chief Complaint: Abdominal Pain Time Seen by Provider: 18:27 Travel History International Travel<30 days: No Contact w/Intl Traveler<30days: No Traveled to known affect area: No History of Present Illness HPI Patient comes in complaining of worsening abdominal pain over the past week and right-sided chest pain that began today. Patient's pain is similar to previous hospitalization when he had a drain fluid off her abdomen. Chest pain is right- sided sharp stabbing and radiates to her shoulder. Patient taking her medication as prescribed however when her got home yesterday states noted she seemed jaundiced again. Patient states she had not noted herself turning yellow or that her eyes turning yellow. Denies any nausea, vomiting, fevers, change in bladder. Patient reports she's been having mustard-colored loose stools and associated shortness of breath. Patient states she did follow up with her primary after being release from the hospital and was supposed to have additional test that she has not been able to get done yet. Patient reports she's been taking her medication as prescribed. 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) Diabetes: Yes Diminished Hearing: No Genitourinary: No Musculoskeletal: No Neurologic: No Reproductive: No Respiratory: No : 3 Para: 3 Miscarriage: 0 : 0 Past Surgical History Abdominal Surgery: Yes (EX LAP) Section: Yes (x 3) Cholecystectomy: Yes Social History Alcohol Use: No Tobacco Use: No Substance Use: No Allergies-Medications (Allergen,Severity, Reaction): Coded Allergies: Morphine (Verified Adverse Reaction, Mild, Nausea/Vomiting, 08/06/16) Reported Meds & Prescriptions Reported Meds & Active Scripts Active Spironolactone 100 Mg Tab 100 Mg PO DAILY Ranitidine (Ranitidine HCl) 150 Mg Tab 150 Mg PO DAILY Pentoxifylline ER (Pentoxifylline) 400 Mg Tab 400 Mg PO Q8HR 28 Days Lactulose Liq (Lactulose) 10 Gm/15 Ml Soln 30 Ml PO DAILY 14 Days Reported Lasix (Furosemide) 40 Mg Tab 40 Mg PO BID Vitamin B-1 (Thiamine HCl) 250 Mg Tab 250 Mg PO DAILY Multi For Her 50+ (Multiple Vitamins W/ Minerals) 1 Tab Tab 1 Tab PO DAILY Folic Acid 1 Mg Tablet 1 Mg PO DAILY Review of Systems Except as stated in HPI: all other systems reviewed are Neg Physical Exam Narrative GENERAL: Well-developed, overly nourished, in no acute distress, and non-ill appearing. SKIN: Focused skin assessment warm and dry. Jaundiced. HEAD: Atraumatic. Normocephalic. EYES: Pupils equal and round. EOMI. Scleral icterus. No injection or drainage. ENT: No nasal bleeding or discharge. Mucous membranes pink and moist. NECK: Trachea midline. No JVD. Supple. No nuclear rigidity. CARDIOVASCULAR: Regular rate and rhythm. No murmur appreciated. RESPIRATORY: No accessory muscle use. No respiratory distress. Clear to auscultation. Breath sounds equal bilaterally. GASTROINTESTINAL: Abdomen soft, ascites appreciated, without guarding. Hepatic and splenic margins not palpable. Normal bowel sounds 4. No pulsatile mass. Patient reports tenderness throughout her abdomen. MUSCULOSKELETAL: No obvious deformities. No clubbing. No cyanosis. 1+ pitting edema to lower lower extremities. Full range of motion. NEUROLOGICAL: Awake and alert. No obvious cranial nerve deficits. Motor grossly within normal limits. Normal speech. PSYCHIATRIC: Appropriate mood and affect; insight and judgment normal. Data Data Last Documented VS Vital Signs Date Time Temp Pulse Resp B/P Pulse Ox O2 Delivery O2 Flow Rate FiO2 08/06/16 19:55 101 20 106/55 98 Room Air 08/06/16 17:47 99.4 Orders Complete Blood Count With Diff (08/06/16 18:17) Comprehensive Metabolic Panel (08/06/16 18:17) Lipase (08/06/16 18:17) Prothrombin Time / Inr (Pt) (08/06/16 18:17) Act Partial Throm Time (Ptt) (08/06/16 18:17) Urinalysis - C+S If Indicated (08/06/16 18:17) Iv Access Insert/Monitor (08/06/16 18:17) Ecg Monitoring (08/06/16 18:17) Oximetry (08/06/16 18:17) Ondansetron Inj (Zofran Inj) (08/06/16 18:30) Sodium Chloride 0.9% Flush (Ns Flush) (08/06/16 18:30) Electrocardiogram (08/06/16 18:17) Chest, Single Ap (08/06/16 18:17) Ckmb (Isoenzyme) Profile (08/06/16 18:17) Troponin I (08/06/16 18:17) B-Type Natriuretic Peptide (08/06/16 18:22) Furosemide Inj (Lasix Inj) (08/06/16 18:30) Lactic Acid Sepsis Protocol (08/06/16 19:06) Blood Culture (08/06/16 19:06) Ceftriaxone Inj (Rocephin Inj) (08/06/16 19:15) Azithromycin Inj (Zithromax Inj) (08/06/16 19:15) Ammonia (08/06/16 19:06) Morphine Inj (Morphine Inj) (08/06/16 19:15) CKMB (08/06/16 18:35) CKMB% (08/06/16 18:35) Admit Order (Ed Use Only) (08/06/16 19:58) Labs Laboratory Tests Test 08/06/16 08/06/16 08/06/16 18:35 19:09 19:40 White Blood Count 5.4 TH/MM3 Red Blood Count 2.44 MIL/MM3 Hemoglobin 8.3 GM/DL Hematocrit 25.2 % Mean Corpuscular Volume 103.1 FL Mean Corpuscular Hemoglobin 34.1 PG Mean Corpuscular Hemoglobin 33.1 % Concent Red Cell Distribution Width 21.0 % Platelet Count 54 TH/MM3 Mean Platelet Volume 7.7 FL Neutrophils (%) (Auto) 75.7 % Lymphocytes (%) (Auto) 15.0 % Monocytes (%) (Auto) 6.7 % Eosinophils (%) (Auto) 1.4 % Basophils (%) (Auto) 1.2 % Neutrophils # (Auto) 4.1 TH/MM3 Lymphocytes # (Auto) 0.8 TH/MM3 Monocytes # (Auto) 0.4 TH/MM3 Eosinophils # (Auto) 0.1 TH/MM3 Basophils # (Auto) 0.1 TH/MM3 CBC Comment AUTO DIFF Differential Comment AUTO DIFF CONFIRMED Platelet Estimate LOW Platelet Morphology Comment NORMAL Tear Drop Cells 1+ Ovalocytes 1+ Keratocytes 1+ Prothrombin Time 20.4 SEC Prothromb Time International 1.8 RATIO Ratio Activated Partial 36.1 SEC Thromboplast Time Sodium Level 139 MEQ/L Potassium Level 3.5 MEQ/L Chloride Level 106 MEQ/L Carbon Dioxide Level 22.2 MEQ/L Anion Gap 11 MEQ/L Blood Urea Nitrogen 6 MG/DL Creatinine 0.58 MG/DL Estimat Glomerular Filtration 116 ML/MIN Rate Random Glucose 133 MG/DL Calcium Level 7.9 MG/DL Phosphorus Level 3.8 MG/DL Magnesium Level 1.8 MG/DL Iron Level 110 MCG/DL Total Bilirubin 11.6 MG/DL Aspartate Amino Transf 128 U/L (AST/SGOT) Alanine Aminotransferase 38 U/L (ALT/SGPT) Alkaline Phosphatase 148 U/L Total Creatine Kinase 135 U/L Creatine Kinase MB 2.6 NG/ML Troponin I LESS THAN 0.02 NG/ML B-Type Natriuretic Peptide 37 PG/ML Total Protein 6.3 GM/DL Albumin 2.5 GM/DL Lipase 509 U/L Urine Color YELLOW Urine Turbidity HAZY Urine pH 7.0 Urine Specific [place] 1.006 Urine Protein NEG mg/dL Urine Glucose (UA) NEG mg/dL Urine Ketones NEG mg/dL Urine Occult Blood NEG Urine Nitrite NEG Urine Bilirubin NEG Urine Urobilinogen 2.0 MG/DL Urine Leukocyte Esterase TRACE Urine RBC LESS THAN 1 /hpf Urine WBC 1 /hpf Urine Squamous Epithelial 3 /hpf Cells Urine Mucus MANY /lpf Microscopic Urinalysis Comment CULT NOT INDICATED Lactic Acid Level 2.1 mmol/L Ammonia 51 MCMOL/L MDM Medical Decision Making Medical Screen Exam Complete: Yes Emergency Medical Condition: Yes Interpretation(s) EKG reviewed by Dr. Thompson shows sinus tach with ventricular rate of 101. No STEMI. Chest x-ray read by radiologist shows: Mild right base consolidation. Differential Diagnosis Liver failure, jaundice, pneumonia, acute coronary syndrome, dehydration, fluid overload, electrolyte abnormality, SBP, other Narrative Course Patient was examined. Initial laboratory radiologic studies were ordered. IV was established. Patient was given Lasix. 190 patient was reassessed. Discussed chest x-ray findings with patient. The need for additional blood work along with starting antibiotics. Patient was offered something for pain states that she is able to take morphine just makes her nauseous. She is not actually allergic to morphine. Morphine was ordered for pain. Laboratory results were reviewed. I suspect patient's abdominal pain secondary to her ascites over SBP cannot be ruled out this time. Discussed patient with Dr. Deras, who is in agreement with plan of care and disposition. Discussed all findings and plan care of patient, who was agreeable for admission. All questions were answered. Physician Communication Physician Communication [address] Weber, who is agreeable to admit the patient. Diagnosis Primary Impression: Pneumonia Qualified Code: J18.1 - Pneumonia of right lower lobe due to infectious organism Additional Impressions: Ascites Qualified Code: K70.31 - Ascites due to alcoholic cirrhosis Jaundice Admitting Information Admitting Physician Requests: Admit Condition: Thiago Camacho Aug 06, 2016 18:32
--- NOTE | 2016-08-06 18:47 | RADRPT ---
EXAM DATE/TIME: 08/06/2016 18:43 [facility] COMPARISON: No previous studies available for comparison. INDICATIONS : Short of breath. MEDICAL HISTORY : Diabetes. PTSD. Liver failure. Kidney stones. ETOH abuse. SURGICAL HISTORY : Cholecystectomy section. Laparoscopy. ENCOUNTER: Initial ACUITY: 1 day PAIN SCORE: 5/10 LOCATION: Bilateral chest FINDINGS: Right hemidiaphragm slightly obscured compatible with a mild right base infiltrate. Left lung appears clear. No large effusion seen. No evidence of pneumothorax. Heart size within normal limits. CONCLUSION: Mild right base consolidation. Michoacano Kuhn MD on August 06, 2016 at 18:44 Board Certified Radiologist. This report was verified electronically.
[2016-08-06 18:57] LABS: AUTOMATED NEUTROPHIL # 4.1 TH/MM3 (1.8-7.7); BASOPHIL # 0.1 TH/MM3 (0-0.2); BASOPHIL % 1.2 % (0.0-2.0); EOSINOPHIL # 0.1 TH/MM3 (0-0.4); EOSINOPHIL % 1.4 % (0.0-4.0); HEMATOCRIT 25.2 % (35.0-46.0); LYMPHOCYTE # 0.8 TH/MM3 (1.0-4.8); MEAN CELL VOLUME 103.1 FL (80.0-100.0); MEAN CORPUSCULAR HEMOGLOBIN 34.1 PG (27.0-34.0); MEAN CORPUSCULAR HGB CONC 33.1 % (32.0-36.0); MONO % 6.7 % (0.0-8.0); NEUT % 75.7 % (16.0-70.0); PLATELET COUNT 54 TH/MM3 (150-450); RED BLOOD COUNT 2.44 MIL/MM3 (4.00-5.30); WHITE BLOOD COUNT 5.4 TH/MM3 (4.0-11.0)
[2016-08-06 19:06] LABS: HEMO FLAGS AUTO DIFF
[2016-08-06] MEDS ORDERED: AZITHROMYCIN INJ 500 MG in SODIUM CHLOR 0.9% 250 ML INJ 250 ML IV ONE (19:15)
[2016-08-06] MEDS ORDERED: MORPHINE SULFATE 4 MG/ML INJ IV PUSH ONE (19:15)
[2016-08-06] MEDS ORDERED: cefTRIAXone INJ 1,000 MG in SODIUM CHLORIDE 0.9% INJ 100 ML IV ONE (19:15)
[2016-08-06 19:20] LABS: APTT (PATIENT) 36.1 SEC (24.3-30.1); INTERNATIONAL NORMALIZED RATIO 1.8 RATIO; PROTHROMBIN TIME - PATIENT 20.4 SEC (9.8-11.6)
[2016-08-06 19:21] LABS: ALT (GPT) 38 U/L (10-53); ANION GAP 11 MEQ/L (5-15); AST (GOT) 128 U/L (15-37); BICARBONATE 22.2 MEQ/L (21.0-32.0); BLOOD UREA NITROGEN 6 MG/DL (7-18); CHLORIDE 106 MEQ/L (98-107); GLOMERULAR FILTRATION RATE 116 ML/MIN (>89); POTASSIUM 3.5 MEQ/L (3.5-5.1); SODIUM (NA) 139 MEQ/L (136-145)
[2016-08-06 19:25] LABS: ALKALINE PHOSPHATASE 148 U/L (45-117); CREATINE KINASE 135 U/L (26-192); TOTAL BILIRUBIN ADULT 11.6 MG/DL (0.2-1.0)
[2016-08-06 19:28] LABS: BLOOD, URINE NEG (NEG); COMMENT (UR) CULT NOT INDICATED; CULTURE IF INDICATED CULT NOT INDICATED; GLUCOSE,URINE NEG (NEG); KETONE, URINE NEG (NEG); MUCUS URINE MANY /lpf (OCC); NITRITE,URINE NEG (NEG); SQUAMOUS EPITHELIAL CELL URINE 3 /hpf (0-5); URINE COLOR YELLOW (YELLW/STRAW)
[2016-08-06 19:31] LABS: KERATOCYTES 1+ (NORMAL); OVALOCYTES 1+ (NORMAL); PLATELET ESTIMATE SMEAR LOW (NORMAL); PLATELET MORPHOLOGY NORMAL (NORMAL); SCAN/DIFF AUTO DIFF CONFIRMED; TEARDROP RBCS 1+ (NORMAL)
[2016-08-06 19:38] LABS: CKMB 2.6 NG/ML (0.5-3.6)
[2016-08-06 19:55] VITALS: BP 106/55; PULSE 101; RESP 20; O2SAT 98
[2016-08-06] MEDS ORDERED: BISACODYL 10 MG SUPP RECTAL PRN (20:15)
[2016-08-06] MEDS ORDERED: PROCHLORPERAZINE 25 MG SUPP RECTAL PRN (20:15)
[2016-08-06] MEDS ORDERED: LACTULOSE SYRUP 20 GM/30 ML CUP PO PRN (20:15)
[2016-08-06] MEDS ORDERED: MAGNESIUM HYDROXIDE SUSP 30 ML CUP PO PRN (20:15)
[2016-08-06] MEDS ORDERED: SENNOSIDES 8.6 MG TAB PO PRN (20:15)
[2016-08-06] MEDS ORDERED: PHYTONADIONE 5 MG TAB PO ONE (20:15)
[2016-08-06] MEDS ORDERED: LORazepam 1 MG TAB PO PRN (20:30)
[2016-08-06] MEDS ORDERED: LORazepam 2 MG TAB PO PRN (20:30)
[2016-08-06] MEDS ORDERED: FLUMAZENIL 0.5 MG/5 ML VIAL IV PUSH PRN (20:30)
[2016-08-06] MEDS ORDERED: LORazepam 2 MG/ML VIAL IV PUSH PRN ×4 (20:30)
--- NOTE | 2016-08-06 20:50 | HHI.HP ---
[facility] Unknown Admission Diagnosis pneumonia, ascites r/o SBP, jaundice Diagnoses: Chief Complaint: abdominal pain/chest pain/ fatigue Travel History International Travel<30 Days: No Contact w/Intl Traveler <30 Da: No Traveled to Known Affected Are: No Sepsis Criteria SIRS Criteria (2 or more): Heart rate over 90, RR > 20 or PaCO2 < 32 Criteria Outcome: Meets sepsis criteria History of Present Illness The patient is a 41 yo F with PMH of liver failure, cirrhosis 2/ EtOH use, diabetes who came to the ED complaining of worsening abdominal pain over the past week and right-sided chest pain that began today. Patient's pain is similar to previous hospitalization when he had a drain fluid off her abdomen. Chest pain is right-sided sharp stabbing and radiates to her shoulder. Patient taking her medication as prescribed however when her got home yesterday states noted she seemed jaundiced again. Patient states she had not noted herself turning yellow or that her eyes turning yellow. Says jaundice improving. Denies any nausea, vomiting, fevers, change in bladder. Patient reports she's been having mustard-colored loose stools and associated shortness of breath. Patient states she did follow up with her primary after being release from the hospital and was supposed to have additional test that she has not been able to get done yet. Patient reports she's been taking her medication as prescribed and she is following with PCP and consultants. Patient reports chills, no fevers. She also reports nonproductive cough. Review of Systems Except as stated in HPI: all other systems reviewed are Neg Past Family Social History Past Medical History DM Kidney stones removed Chronic EtOH use Liver cirrhosis 2/2 prior EtOH use /tylenol use Past Surgical History 3 C- sections Exploratory sx - appendectomy Cholecystectomy EGD Bile duct stent placed post cholecystectomy- but since removed Reported Medications Reported Meds & Active Scripts Active Spironolactone 100 Mg Tab 100 Mg PO DAILY Ranitidine (Ranitidine HCl) 150 Mg Tab 150 Mg PO DAILY Pentoxifylline ER (Pentoxifylline) 400 Mg Tab 400 Mg PO Q8HR 28 Days Lactulose Liq (Lactulose) 10 Gm/15 Ml Soln 30 Ml PO DAILY 14 Days Reported Lasix (Furosemide) 40 Mg Tab 40 Mg PO BID Vitamin B-1 (Thiamine HCl) 250 Mg Tab 250 Mg PO DAILY Multi For Her 50+ (Multiple Vitamins W/ Minerals) 1 Tab Tab 1 Tab PO DAILY Folic Acid 1 Mg Tablet 1 Mg PO DAILY Allergies: Coded Allergies: Morphine (Verified Adverse Reaction, Mild, Nausea/Vomiting, 08/06/16) Family History DM, HTN- all females in family Mother with heart problems Social History Used to drink hard liquor about 3-4 shots every day - stopped hard liquor Nov 2015 On and off 2-3 yrs for hard liquor Current occasional beer Denies tobacco use or Illicit drug use Physical Exam Vital Signs Vital Signs Date Time Temp Pulse Resp B/P Pulse Ox O2 Delivery O2 Flow Rate FiO2 08/06/16 19:55 101 20 106/55 98 Room Air 08/06/16 17:58 110 20 118/67 98 Room Air 08/06/16 17:47 99.4 129 20 143/77 96 Physical Exam GENERAL: This is a 41 yo F , jaundiced, well-nourished, well-developed patient, in no apparent distress. SKIN: Jaundice, scattered ecchymoses. Cool and dry. HEAD: Atraumatic. Normocephalic. No temporal or scalp tenderness. EYES: Pupils equal round and reactive. Extraocular motions intact. No scleral icterus. No injection or drainage. ENT: Nose without bleeding, purulent drainage or septal hematoma. Throat without erythema, tonsillar hypertrophy or exudate. Uvula midline. Airway patent. NECK: Trachea midline. No JVD or lymphadenopathy. Supple, nontender, no meningeal signs. CARDIOVASCULAR: Regular rate and rhythm without murmurs, gallops, or rubs. RESPIRATORY: Decreased breath sounds. No wheezes, rales, or rhonchi. GASTROINTESTINAL: Abdomen soft, non-tender, nondistended. No hepato-splenomegaly , or palpable masses. No guarding. MUSCULOSKELETAL: Extremities without clubbing, cyanosis, or edema. No joint tenderness, effusion, or edema noted. No calf tenderness. Negative Homans sign bilaterally. NEUROLOGICAL: Awake and alert. Cranial nerves II through XII intact. Motor and sensory grossly within normal limits. Five out of 5 muscle strength in all muscle groups. Normal speech. Laboratory Laboratory Tests Test 08/06/16 08/06/16 08/06/16 18:35 19:09 19:40 White Blood Count 5.4 Red Blood Count 2.44 Hemoglobin 8.3 Hematocrit 25.2 Mean Corpuscular Volume 103.1 Mean Corpuscular Hemoglobin 34.1 Mean Corpuscular Hemoglobin 33.1 Concent Red Cell Distribution Width 21.0 Platelet Count 54 Mean Platelet Volume 7.7 Neutrophils (%) (Auto) 75.7 Lymphocytes (%) (Auto) 15.0 Monocytes (%) (Auto) 6.7 Eosinophils (%) (Auto) 1.4 Basophils (%) (Auto) 1.2 Neutrophils # (Auto) 4.1 Lymphocytes # (Auto) 0.8 Monocytes # (Auto) 0.4 Eosinophils # (Auto) 0.1 Basophils # (Auto) 0.1 CBC Comment AUTO DIFF Differential Comment AUTO DIFF CONFIRMED Platelet Estimate LOW Platelet Morphology Comment NORMAL Tear Drop Cells 1+ Ovalocytes 1+ Keratocytes 1+ Prothrombin Time 20.4 Prothromb Time International 1.8 Ratio Activated Partial 36.1 Thromboplast Time Sodium Level 139 Potassium Level 3.5 Chloride Level 106 Carbon Dioxide Level 22.2 Anion Gap 11 Blood Urea Nitrogen 6 Creatinine 0.58 Estimat Glomerular Filtration 116 Rate Random Glucose 133 Calcium Level 7.9 Total Bilirubin 11.6 Aspartate Amino Transf 128 (AST/SGOT) Alanine Aminotransferase 38 (ALT/SGPT) Alkaline Phosphatase 148 Total Creatine Kinase 135 Creatine Kinase MB 2.6 Troponin I LESS THAN 0.02 B-Type Natriuretic Peptide 37 Total Protein 6.3 Albumin 2.5 Lipase 509 Urine Color YELLOW Urine Turbidity HAZY Urine pH 7.0 Urine Specific [place] 1.006 Urine Protein NEG Urine Glucose (UA) NEG Urine Ketones NEG Urine Occult Blood NEG Urine Nitrite NEG Urine Bilirubin NEG Urine Urobilinogen 2.0 Urine Leukocyte Esterase TRACE Urine RBC LESS THAN 1 Urine WBC 1 Urine Squamous Epithelial 3 Cells Urine Mucus MANY Microscopic Urinalysis Comment CULT NOT INDICATED Lactic Acid Level 2.1 Ammonia 51 Date/Time Procedure Status Source Growth 08/06/16 19:45 Aerobic Blood Culture Received Blood Peripheral Pending 08/06/16 19:45 Anaerobic Blood Culture Received Blood Peripheral Pending Result Diagram: [id number] Imaging Last Impressions Chest X-Ray 08/06/161816 Signed Impressions: Service Date/Time: Saturday, August 06, 2016 18:43 - CONCLUSION: Mild right base consolidation. Michoacano Kuhn MD Assessment and Plan Assessment and Plan Abdominal pain/ Ascites/ Poss SBP Sepsis (tachycardia, tachypnea, source Pneumonia/SBP) Acute on chronic liver failure UTI Coagulopathy INR of 1.8 secondary to liver failure Thrombocytopenia, 2/2 EtOH use Macrocytic anemia likely 2/2 EtOH use. Check B12, folate, iron panel. H/H appears at baseline. Monitor. Prior history of EtOH abuse. Counselled. Plan: Give vitamin K for INR of 1.8 Patient received Rocephin and Azithromycin in the ED Continue IV antibiotic Rocephine and azithro IV Needs paracentesis, however given coagulopathy risk of bleeding at this time. Monitor INR, PLT, overt bleeding. GI consult. Hem/onc consult Resume home meds as appropriate. DVT prophylaxiswith ambulation/SCD. Chemical prophylaxis is contraindicated since patient has INR1.8 with acute liver failure, thrombocytopenia. GI prophylaxis on pantoprazole. Discussed Condition With patient, nurse, ED physician/ED PA Physician Certification 2 Midnight Certification Type: Admission for Inpatient Services Order for Inpatient Services The services are ordered in accordance with Medicare regulations or non- Medicare payer requirements, as applicable. In the case of services not specified as inpatient-only, they are appropriately provided as inpatient services in accordance with the 2-midnight benchmark. Estimated LOS (days): 3 days is the estimated time the patient will need to remain in the hospital, assuming treatment plan goals are met and no additional complications. Post-Hospital Plan: Home Lis Weber MD Aug 06, 2016 20:50
[2016-08-06] MEDS: DOCUSATE SODIUM 50 MG/SENNA 8.6 MG TAB PO SCH (21:00)
[2016-08-06] MEDS: SODIUM CHLORIDE 0.9% FLUSH 10 ML FLUSH IV FLUSH SCH (21:00)
[2016-08-06] MEDS: SODIUM CHLOR 0.9% 1000 ML INJ 1,000 ML IV SCH (21:13)
[2016-08-06 21:25] LABS: MAGNESIUM 1.8 MG/DL (1.5-2.5)
--- NOTE | 2016-08-06 21:33 | PD ---
Data Data Last Documented VS Vital Signs Date Time Temp Pulse Resp B/P Pulse Ox O2 Delivery O2 Flow Rate FiO2 08/06/16 19:55 101 20 106/55 98 Room Air 08/06/16 17:47 99.4 Orders Complete Blood Count With Diff (08/06/16 18:17) Comprehensive Metabolic Panel (08/06/16 18:17) Lipase (08/06/16 18:17) Prothrombin Time / Inr (Pt) (08/06/16 18:17) Act Partial Throm Time (Ptt) (08/06/16 18:17) Urinalysis - C+S If Indicated (08/06/16 18:17) Iv Access Insert/Monitor (08/06/16 18:17) Ecg Monitoring (08/06/16 18:17) Oximetry (08/06/16 18:17) Ondansetron Inj (Zofran Inj) (08/06/16 18:30) Sodium Chloride 0.9% Flush (Ns Flush) (08/06/16 18:30) Electrocardiogram (08/06/16 18:17) Chest, Single Ap (08/06/16 18:17) Ckmb (Isoenzyme) Profile (08/06/16 18:17) Troponin I (08/06/16 18:17) B-Type Natriuretic Peptide (08/06/16 18:22) Furosemide Inj (Lasix Inj) (08/06/16 18:30) Lactic Acid Sepsis Protocol (08/06/16 19:06) Blood Culture (08/06/16 19:06) Ceftriaxone Inj (Rocephin Inj) (08/06/16 19:15) Azithromycin Inj (Zithromax Inj) (08/06/16 19:15) Ammonia (08/06/16 19:06) Morphine Inj (Morphine Inj) (08/06/16 19:15) CKMB (08/06/16 18:35) CKMB% (08/06/16 18:35) Admit Order (Ed Use Only) (08/06/16 19:58) Labs Laboratory Tests Test 08/06/16 08/06/16 08/06/16 18:35 19:09 19:40 White Blood Count 5.4 TH/MM3 Red Blood Count 2.44 MIL/MM3 Hemoglobin 8.3 GM/DL Hematocrit 25.2 % Mean Corpuscular Volume 103.1 FL Mean Corpuscular Hemoglobin 34.1 PG Mean Corpuscular Hemoglobin 33.1 % Concent Red Cell Distribution Width 21.0 % Platelet Count 54 TH/MM3 Mean Platelet Volume 7.7 FL Neutrophils (%) (Auto) 75.7 % Lymphocytes (%) (Auto) 15.0 % Monocytes (%) (Auto) 6.7 % Eosinophils (%) (Auto) 1.4 % Basophils (%) (Auto) 1.2 % Neutrophils # (Auto) 4.1 TH/MM3 Lymphocytes # (Auto) 0.8 TH/MM3 Monocytes # (Auto) 0.4 TH/MM3 Eosinophils # (Auto) 0.1 TH/MM3 Basophils # (Auto) 0.1 TH/MM3 CBC Comment AUTO DIFF Differential Comment AUTO DIFF CONFIRMED Platelet Estimate LOW Platelet Morphology Comment NORMAL Tear Drop Cells 1+ Ovalocytes 1+ Keratocytes 1+ Prothrombin Time 20.4 SEC Prothromb Time International 1.8 RATIO Ratio Activated Partial 36.1 SEC Thromboplast Time Sodium Level 139 MEQ/L Potassium Level 3.5 MEQ/L Chloride Level 106 MEQ/L Carbon Dioxide Level 22.2 MEQ/L Anion Gap 11 MEQ/L Blood Urea Nitrogen 6 MG/DL Creatinine 0.58 MG/DL Estimat Glomerular Filtration 116 ML/MIN Rate Random Glucose 133 MG/DL Calcium Level 7.9 MG/DL Phosphorus Level 3.8 MG/DL Magnesium Level 1.8 MG/DL Iron Level 110 MCG/DL Total Iron Binding Capacity 123 MCG/DL Percent Iron Saturation 89.3 % Ferritin 99 NG/ML Total Bilirubin 11.6 MG/DL Aspartate Amino Transf 128 U/L (AST/SGOT) Alanine Aminotransferase 38 U/L (ALT/SGPT) Alkaline Phosphatase 148 U/L Total Creatine Kinase 135 U/L Creatine Kinase MB 2.6 NG/ML Troponin I LESS THAN 0.02 NG/ML B-Type Natriuretic Peptide 37 PG/ML Total Protein 6.3 GM/DL Albumin 2.5 GM/DL Lipase 509 U/L Vitamin B12 Level GREATER THAN 2000 PG/ML Folate 12.8 NG/ML Urine Color YELLOW Urine Turbidity HAZY Urine pH 7.0 Urine Specific [place] 1.006 Urine Protein NEG mg/dL Urine Glucose (UA) NEG mg/dL Urine Ketones NEG mg/dL Urine Occult Blood NEG Urine Nitrite NEG Urine Bilirubin NEG Urine Urobilinogen 2.0 MG/DL Urine Leukocyte Esterase TRACE Urine RBC LESS THAN 1 /hpf Urine WBC 1 /hpf Urine Squamous Epithelial 3 /hpf Cells Urine Mucus MANY /lpf Microscopic Urinalysis Comment CULT NOT INDICATED Lactic Acid Level 2.1 mmol/L Ammonia 51 MCMOL/L MDM Diagnosis Primary Impression: Pneumonia Qualified Code: J18.1 - Pneumonia of right lower lobe due to infectious organism Additional Impressions: Ascites Qualified Code: K70.31 - Ascites due to alcoholic cirrhosis Jaundice Condition: Maikel Ortiz MD Aug 06, 2016 21:33
[2016-08-06 21:45] VITALS: BP 128/66; PULSE 103; RESP 22; TEMP 98.4; O2SAT 98
[2016-08-06 21:50] LABS: FERRITIN 99 NG/ML (8-252); TRANSFERRIN IRON PROFILE 88 MG/DL (200-360)
[2016-08-06 22:00] LABS: LACTIC ACID GHOST NOT REPORTABLE
[2016-08-06] MEDS ORDERED: PILL SPLITTER OTHER PRN (22:30)
[2016-08-06] MEDS: THIAMINE HCL 100 MG TAB PO SCH (22:42)
[2016-08-06] MEDS: FUROSEMIDE 40 MG TAB PO SCH (22:43)
[2016-08-06] MEDS: PENTOXIFYLLINE 400 MG CONTROLLED RELEASE TAB PO SCH (22:43)
[2016-08-06] MEDS: FAMOTIDINE 20 MG TAB PO SCH (22:43)
[2016-08-06] MEDS: HYDROmorphone HCL PF 1 MG/ML VIAL IV PUSH PRN (23:43)
[2016-08-07] VITALS (8 sets, daily range): BP systolic 124–136; BP diastolic 58–71; PULSE 98–115; RESP 20–22; TEMP 96.9–98.7; O2SAT 96–100
[2016-08-07] MEDS: HYDROmorphone HCL PF 1 MG/ML VIAL IV PUSH PRN ×5 (05:08→22:15)
[2016-08-07] MEDS: ONDANSETRON HCL 4 MG/2 ML VIAL IVP PRN ×3 (05:13→22:15)
[2016-08-07 05:21] LABS: AUTOMATED NEUTROPHIL # 4.3 TH/MM3 (1.8-7.7); BASOPHIL % 0.6 % (0.0-2.0); EOSINOPHIL # 0.1 TH/MM3 (0-0.4); EOSINOPHIL % 1.9 % (0.0-4.0); HEMATOCRIT 23.6 % (35.0-46.0); LYMPH % 15.9 % (9.0-44.0); LYMPHOCYTE # 0.9 TH/MM3 (1.0-4.8); MEAN CELL VOLUME 102.8 FL (80.0-100.0); MEAN CORPUSCULAR HEMOGLOBIN 34.9 PG (27.0-34.0); MEAN CORPUSCULAR HGB CONC 33.9 % (32.0-36.0); MONO % 5.3 % (0.0-8.0); NEUT % 76.3 % (16.0-70.0); PLATELET COUNT 50 TH/MM3 (150-450); WHITE BLOOD COUNT 5.6 TH/MM3 (4.0-11.0)
[2016-08-07 05:25] LABS: HEMO FLAGS AUTO DIFF
[2016-08-07 05:31] LABS: INTERNATIONAL NORMALIZED RATIO 1.9 RATIO; PROTHROMBIN TIME - PATIENT 21.6 SEC (9.8-11.6)
[2016-08-07 05:53] LABS: ALT (GPT) 32 U/L (10-53); ANION GAP 10 MEQ/L (5-15); AST (GOT) 120 U/L (15-37); BICARBONATE 25.9 MEQ/L (21.0-32.0); BLOOD UREA NITROGEN 5 MG/DL (7-18); CHLORIDE 106 MEQ/L (98-107); GLOMERULAR FILTRATION RATE 123 ML/MIN (>89); MAGNESIUM 1.7 MG/DL (1.5-2.5); POTASSIUM 3.5 MEQ/L (3.5-5.1); SODIUM (NA) 142 MEQ/L (136-145)
[2016-08-07] MEDS: PENTOXIFYLLINE 400 MG CONTROLLED RELEASE TAB PO SCH ×3 (05:54→20:46)
[2016-08-07 05:55] LABS: ALKALINE PHOSPHATASE 135 U/L (45-117); TOTAL BILIRUBIN ADULT 12.4 MG/DL (0.2-1.0)
[2016-08-07 06:59] LABS: ACANTHOCYTES OCC (NORMAL); KERATOCYTES OCC (NORMAL); OVALOCYTES 1+ (NORMAL); PLATELET ESTIMATE SMEAR LOW (NORMAL); PLATELET MORPHOLOGY NORMAL (NORMAL); SCAN/DIFF AUTO DIFF CONFIRMED
[2016-08-07] MEDS: SODIUM CHLORIDE 0.9% FLUSH 10 ML FLUSH IV FLUSH SCH ×2 (09:00→20:49)
[2016-08-07 09:19] LABS: TOTAL BILIRUBIN ADULT 12.7 MG/DL (0.2-1.0)
[2016-08-07] MEDS: FAMOTIDINE 20 MG TAB PO SCH ×2 (09:46→20:46)
[2016-08-07] MEDS: FUROSEMIDE 40 MG TAB PO SCH ×2 (09:46→20:46)
[2016-08-07] MEDS: FOLIC ACID 1 MG TAB PO SCH (09:46)
[2016-08-07] MEDS: THIAMINE HCL 100 MG TAB PO SCH (09:46)
[2016-08-07] MEDS: DOCUSATE SODIUM 50 MG/SENNA 8.6 MG TAB PO SCH ×2 (09:46→20:47)
[2016-08-07] MEDS: MULTIVITAMINS/MINERALS THERAPEUTIC TAB PO SCH (09:46)
[2016-08-07] MEDS: LACTULOSE SYRUP 20 GM/30 ML CUP PO SCH (09:46)
[2016-08-07] MEDS: SPIRONOLACTONE 100 MG TAB PO SCH (09:46)
--- NOTE | 2016-08-07 10:58 | HHI.PR ---
Subjective Remarks Follow-up/liver failure/coagulopathy/thrombocytopenia/macrocytic anemia 08/07/16-patient seen and examined; complains of abdominal pain and distention. Denies any current GI bleed. Denies any chest pain or significant shortness of breath Objective Vitals Vital Signs Date Time Temp Pulse Resp B/P Pulse Ox O2 Delivery O2 Flow Rate FiO2 08/07/16 07:54 97.9 100 20 128/59 97 08/07/16 04:00 97.6 108 20 124/58 97 08/07/16 00:00 98.4 115 22 126/60 96 08/06/16 21:45 98.4 103 22 128/66 98 08/06/16 21:03 21 08/06/16 19:55 101 20 106/55 98 Room Air 08/06/16 17:58 110 20 118/67 98 Room Air 08/06/16 17:47 99.4 129 20 143/77 96 I/O 08/06/16 08/06/16 08/06/16 08/07/16 08/07/16 08/07/16 07:00 15:00 23:00 07:00 15:00 23:00 Intake Total 371 ml 0 ml Output Total 1050 ml Balance -679 ml 0 ml Intake Oral 0 ml 0 ml IV Total 371 ml Output Urine Total 1050 ml # Bowel Movements 0 Result Diagram: 08/07/16 0458 08/07/16 0458 Imaging Last Impressions Chest X-Ray 08/06/161816 Signed Impressions: Service Date/Time: Saturday, August 06, 2016 18:43 - CONCLUSION: Mild right base consolidation. Michoacano Kuhn MD Objective Remarks GENERAL: NAD SKIN: Warm and dry. Jaundiced HEAD: Normocephalic. EYES: + scleral icterus. No injection or drainage. NECK: Supple, trachea midline. No JVD or lymphadenopathy. CARDIOVASCULAR: Regular rate and rhythm without murmurs, gallops, or rubs. RESPIRATORY: Breath sounds equal bilaterally. No accessory muscle use. GASTROINTESTINAL: Abdomen soft, non-tender, distended. Positive bowel sounds MUSCULOSKELETAL: No cyanosis, or edema. BACK: Nontender without obvious deformity. No CVA tenderness. A/P Problem List: (1) Community acquired bacterial pneumonia ICD Code: J15.9 Status: Acute (2) Liver failure ICD Code: K72.90 Status: Chronic (3) Thrombocytopenia ICD Code: D69.6 Status: Acute (4) Macrocytic anemia ICD Code: D53.9 Status: Acute (5) Hyperbilirubinemia ICD Code: E80.6 Status: Acute (6) Coagulopathy ICD Code: D68.9 Status: Acute Assessment and Plan 41 year-old female with Community-acquired pneumonia Continue with azithromycin and Rocephin DuoNeb when necessary and maintain oxygen saturation above 92% Acute on chronic liver disease Gastroenterology consultation pending Currently on spironolactone, Lasix,Pentoxifyllin Previously patient Liver workup negative for autoimmune disease May need liver biopsy in the face of jaundiced History of ascites Check liver ultrasound and plan for therapeutic paracentesis when INR<1.5 Continue treatment as in above GI consultation pending Hyperbilirubinemia Likely secondary to liver disease as patient with previous cholecystectomy. On previous admissions, CBD stone or choledocholithiasis was ruled out GI consultation pending and continue to monitor level Hyperammonemia Secondary to liver disease Continue lactulose Monitor ammonia level Thrombocytopenia Secondary to liver disease Monitor platelet count Coagulopathy Secondary to liver failure Status post vitamin K 2.51 and monitor INR/PT Cancel hematology consultation Macrocytic anemia due to chronic disease H&H at baseline DVT prophylaxis: Bilateral SCDs GI prophylaxis: PPI Charli Shafer MD Aug 07, 2016 10:58
--- NOTE | 2016-08-07 11:38 | EKG ---
Date Performed: 08/06/2016 Time Performed: 18:18:31 PTAGE: 41 years EKG: SINUS TACHYCARDIA Since previous tracing, no significant change noted ABNORMAL RHYTHM ECG PREVIOUS TRACING : 03/27/2016 18.22 DOCTOR: Eliud Sarmiento Interpretating Date/Time 08/07/2016 11:37:50
--- NOTE | 2016-08-07 12:34 | PD.CONS ---
HPI History of Present Illness This is a 41 year old female with hx cirrhosis, portal htn, who came to hospital yesterday for abdominal pain and bloating. She was found to have PNA and INR 1.9. 5 day ago she started having abd swelling along with pain that radiated to right side chest, SOB, and decreased activity tolerance. She has also had some nausea but no vomiting. 3 days ago her noticed yellow skin. She came to hospital previously 07/17 for anasarca and abdominal swelling , she had previously had paracentesis, was given diuretics in hospital and had some improvement. She denies lower extremity edema this time. Says she has been c/w lactulose, diuretics, pentoxyfilline. (Blanka Reynoso) PFSH Past Medical History DM Kidney stones removed Chronic EtOH use Liver cirrhosis 2/2 prior EtOH use /tylenol use Past Surgical History 3 C- sections Exploratory sx - appendectomy Cholecystectomy EGD Bile duct stent placed post cholecystectomy- but since removed (Blanka Reynoso) Coded Allergies: Morphine (Verified Adverse Reaction, Mild, Nausea/Vomiting, 08/06/16) Family History DM, HTN- all females in family Mother with heart problems Social History Used to drink hard liquor about 3-4 shots every day - stopped hard liquor Nov 2015 On and off 2-3 yrs for hard liquor Current occasional beer Denies tobacco use or Illicit drug use (Blanka Reynoso) Review of Systems Constitutional: DENIES: Fever Eyes: DENIES: Blurred vision Ears, nose, mouth, throat: DENIES: Hearing loss Respiratory: COMPLAINS OF: Shortness of breath, DENIES: Cough Cardiovascular: DENIES: Palpitations, Lower Extremity Edema Gastrointestinal: COMPLAINS OF: Abdominal pain, Nausea, Swelling of Abdomen, DENIES: Black stools, Bloody stools, Constipation, Diarrhea, Vomiting Genitourinary: DENIES: Hematuria Musculoskeletal: DENIES: Muscle aches Integumentary: DENIES: Abnormal pigmentation Psychiatric: DENIES: Confusion (Blanka Reynoso) GI Exam Vitals I&O Vital Signs Date Time Temp Pulse Resp B/P Pulse Ox O2 Delivery O2 Flow Rate FiO2 08/07/16 10:47 98 21 08/07/16 07:54 97.9 100 20 128/59 97 08/07/16 04:00 97.6 108 20 124/58 97 08/07/16 00:00 98.4 115 22 126/60 96 08/06/16 21:45 98.4 103 22 128/66 98 08/06/16 21:03 21 08/06/16 19:55 101 20 106/55 98 Room Air 08/06/16 17:58 110 20 118/67 98 Room Air 08/06/16 17:47 99.4 129 20 143/77 96 I/O 08/06/16 08/06/16 08/06/16 08/07/16 08/07/16 08/07/16 07:00 15:00 23:00 07:00 15:00 23:00 Intake Total 371 ml 0 ml Output Total 1050 ml Balance -679 ml 0 ml Intake Oral 0 ml 0 ml IV Total 371 ml Output Urine Total 1050 ml # Bowel Movements 0 Laboratory Test 08/06/16 08/06/16 08/06/16 08/06/16 18:35 19:09 19:40 23:35 White Blood Count 5.4 TH/MM3 Red Blood Count 2.44 MIL/MM3 Hemoglobin 8.3 GM/DL Hematocrit 25.2 % Mean Corpuscular Volume 103.1 FL Mean Corpuscular Hemoglobin 34.1 PG Mean Corpuscular Hemoglobin 33.1 % Concent Red Cell Distribution Width 21.0 % Platelet Count 54 TH/MM3 Mean Platelet Volume 7.7 FL Neutrophils (%) (Auto) 75.7 % Lymphocytes (%) (Auto) 15.0 % Monocytes (%) (Auto) 6.7 % Eosinophils (%) (Auto) 1.4 % Basophils (%) (Auto) 1.2 % Neutrophils # (Auto) 4.1 TH/MM3 Lymphocytes # (Auto) 0.8 TH/MM3 Monocytes # (Auto) 0.4 TH/MM3 Eosinophils # (Auto) 0.1 TH/MM3 Basophils # (Auto) 0.1 TH/MM3 CBC Comment AUTO DIFF Differential Comment AUTO DIFF CONFIRMED Platelet Estimate LOW Platelet Morphology Comment NORMAL Tear Drop Cells 1+ Ovalocytes 1+ Keratocytes 1+ Prothrombin Time 20.4 SEC Prothromb Time International 1.8 RATIO Ratio Activated Partial 36.1 SEC Thromboplast Time Sodium Level 139 MEQ/L Potassium Level 3.5 MEQ/L Chloride Level 106 MEQ/L Carbon Dioxide Level 22.2 MEQ/L Anion Gap 11 MEQ/L Blood Urea Nitrogen 6 MG/DL Creatinine 0.58 MG/DL Estimat Glomerular Filtration 116 ML/MIN Rate Random Glucose 133 MG/DL Calcium Level 7.9 MG/DL Phosphorus Level 3.8 MG/DL Magnesium Level 1.8 MG/DL Iron Level 110 MCG/DL Total Iron Binding Capacity 123 MCG/DL Percent Iron Saturation 89.3 % Ferritin 99 NG/ML Total Bilirubin 11.6 MG/DL Aspartate Amino Transf 128 U/L (AST/SGOT) Alanine Aminotransferase 38 U/L (ALT/SGPT) Alkaline Phosphatase 148 U/L Total Creatine Kinase 135 U/L Creatine Kinase MB 2.6 NG/ML Troponin I LESS THAN 0.02 NG/ML B-Type Natriuretic Peptide 37 PG/ML Total Protein 6.3 GM/DL Albumin 2.5 GM/DL Lipase 509 U/L Vitamin B12 Level GREATER THAN 2000 PG/ML Folate 12.8 NG/ML Urine Color YELLOW Urine Turbidity HAZY Urine pH 7.0 Urine Specific [place] 1.006 Urine Protein NEG mg/dL Urine Glucose (UA) NEG mg/dL Urine Ketones NEG mg/dL Urine Occult Blood NEG Urine Nitrite NEG Urine Bilirubin NEG Urine Urobilinogen 2.0 MG/DL Urine Leukocyte Esterase TRACE Urine RBC LESS THAN 1 /hpf Urine WBC 1 /hpf Urine Squamous Epithelial 3 /hpf Cells Urine Mucus MANY /lpf Microscopic Urinalysis Comment CULT NOT INDICATED Lactic Acid Level 2.1 mmol/L 2.1 mmol/L Ammonia 51 MCMOL/L Test 08/07/16 04:58 White Blood Count 5.6 TH/MM3 Red Blood Count 2.30 MIL/MM3 Hemoglobin 8.0 GM/DL Hematocrit 23.6 % Mean Corpuscular Volume 102.8 FL Mean Corpuscular Hemoglobin 34.9 PG Mean Corpuscular Hemoglobin 33.9 % Concent Red Cell Distribution Width 21.0 % Platelet Count 50 TH/MM3 Mean Platelet Volume 7.9 FL Neutrophils (%) (Auto) 76.3 % Lymphocytes (%) (Auto) 15.9 % Monocytes (%) (Auto) 5.3 % Eosinophils (%) (Auto) 1.9 % Basophils (%) (Auto) 0.6 % Neutrophils # (Auto) 4.3 TH/MM3 Lymphocytes # (Auto) 0.9 TH/MM3 Monocytes # (Auto) 0.3 TH/MM3 Eosinophils # (Auto) 0.1 TH/MM3 Basophils # (Auto) 0.0 TH/MM3 CBC Comment AUTO DIFF Differential Comment AUTO DIFF CONFIRMED Platelet Estimate LOW Platelet Morphology Comment NORMAL Ovalocytes 1+ Acanthocytes OCC Keratocytes OCC Prothrombin Time 21.6 SEC Prothromb Time International 1.9 RATIO Ratio Sodium Level 142 MEQ/L Potassium Level 3.5 MEQ/L Chloride Level 106 MEQ/L Carbon Dioxide Level 25.9 MEQ/L Anion Gap 10 MEQ/L Blood Urea Nitrogen 5 MG/DL Creatinine 0.55 MG/DL Estimat Glomerular Filtration 123 ML/MIN Rate Random Glucose 118 MG/DL Calcium Level 8.0 MG/DL Magnesium Level 1.7 MG/DL Total Bilirubin 12.7 MG/DL Direct Bilirubin 7.3 MG/DL Aspartate Amino Transf 120 U/L (AST/SGOT) Alanine Aminotransferase 32 U/L (ALT/SGPT) Alkaline Phosphatase 135 U/L Ammonia 38 MCMOL/L Total Protein 6.0 GM/DL Albumin 2.4 GM/DL Date/Time Procedure Status Source Growth 08/06/16 19:45 Aerobic Blood Culture - Preliminary Resulted Blood Peripheral NO GROWTH IN 1 DAY 08/06/16 19:45 Anaerobic Blood Culture - Preliminary Resulted Blood Peripheral NO GROWTH IN 1 DAY Physical Examination HEENT: normocephalic; atraumatic; +icterus CHEST: CTA CARDIAC: RRR, + murmur ABDOMEN: Soft, distended, significant TTP; no hepatosplenomegaly; bowel sounds are present in all four quadrants. EXTREMITIES: No clubbing, cyanosis, or edema. SKIN: Normal; no rash; +jaundice MENTAL RETARDATION AIDE: No focal deficits; alert and oriented times three. (Blanka Reynoso [facility]) Assessment and Plan Plan ASSESSMENT - abdominal pain, swelling - pt diagnosed with PNA. has previously needed paracentesis. Pt on diuretics. Will do CT. paracentesis when INR < 1.5 - elevated LFTs, jaundice - hx cirrhosis, likely 2/2 ETOH. US 07-02-16--> liver enlarged to 20cm suspected hepatocellular dz, splenomegaly 18.6cm, no free fluid. Prev liver w/u neg for hep, autoimmune dz. MELD mckinney 18, UNOS 23. Hold on liver bx for now, will await CT. consider liver transplant, will consult case mgmt. - coagulopathy - INR 1.9. vitamin K. 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 Paracentesis and ct ordered. MELD 23, case management consult for possible consultation with transplant center. Will follow, thank you ( Laurie Packer MD) Blanka Reynoso Aug 07, 2016 12:34 Laurie Packer MD Aug 07, 2016 14:54
[2016-08-07] MEDS ORDERED: DIATRIZOATE MEGLUM/DIATRIZOATE SOD 9 ML CUP PO ONE (12:45)
[2016-08-07 14:16] LABS: BETA HCG QUANT LESS THAN 1 MIU/ML (0-5)
[2016-08-07] MEDS: SODIUM CHLOR 0.9% 1000 ML INJ 1,000 ML IV SCH (15:56)
[2016-08-07] MEDS ORDERED: IOHEXOL 350 MG/ML 10 ML VIAL (for RAD DIAG) IV ONE (16:07)
--- NOTE | 2016-08-07 16:59 | RADRPT ---
EXAM DATE/TIME: 08/07/2016 16:05 [place] COMPARISON: CT ABDOMEN & PELVIS W CONTRAST, December 19, 2015, 16:22. INDICATIONS : Abdomen pain. IV CONTRAST: 92 cc Omnipaque 350 (iohexol) IV ORAL CONTRAST: Prescribed oral contrast ingested. RADIATION DOSE: 12.51 CTDIvol (mGy) MEDICAL HISTORY : Cirrhosis. Diabetes mellitus type 2. SURGICAL HISTORY : Cholecystectomy. Appendectomy. section. ENCOUNTER: Subsequent ACUITY: 1 day PAIN SCALE: 0/10 LOCATION: TECHNIQUE: Volumetric scanning of the abdomen and pelvis was performed. Using automated exposure control and ad justment of the mA and/or kV according to patient size, radiation dose was kept as low as reasonably achievable to obtain optimal diagnostic quality images. FINDINGS: There is marked splenomegaly with the spleen measuring 20.4 cm in greatest dimension. The liver demo nstrates some nodularity of its contour suggesting cirrhosis. There is a very subtle low density les ion within the left lobe of the liver measuring 2 cm which is indeterminate. MRI of the abdomen with contrast would be helpful for further characterization of this subtle lesion and can be performed as outpatient if clinically indicated. No biliary ductal dilatation is noted. There is recanalization of the umbilical vein indicating portal hypertension. Diffuse colonic wall thickening is noted sugg esting diffuse edema which may be related to colitis. Ascites is noted throughout the abdomen and pe lvis. The kidneys are unremarkable. The pancreas is normal. The adrenal glands are normal. The pa tient is status post cholecystectomy. The abdominal aorta and inferior vena cava are unremarkable. No paraortic, retroperitoneal or mesenteric lymphadenopathy is noted. The urinary bladder is unremar kable. The uterus is normal. Varices are noted throughout the anterior peritoneum also. CONCLUSION: 1. Marked splenomegaly. 2. Subtle nodularity of the contour of the liver suggesting cirrhosis. 3. Diffuse thickening involving the wall of the colon suggesting edema and/or colitis. Clinical ki elation is recommended. 4. Ascites within the abdomen and pelvis. 5. Subtle nodular density within the left lobe of the liver measuring 2 cm which is indeterminate. O utpatient MRI of the abdomen with contrast may be helpful for further evaluation of this finding if c linically indicated. 6. Recanalization of the umbilical vein indicating portal hypertension. Varices are noted throughout the anterior peritoneum also. Maikel Pompa MD on August 07, 2016 at 16:31 Board Certified Radiologist. This report was verified electronically.
[2016-08-07] MEDS: cefTRIAXone INJ 1,000 MG in SODIUM CHLORIDE 0.9% INJ 100 ML IV SCH (20:46)
[2016-08-07] MEDS: AZITHROMYCIN INJ 500 MG in SODIUM CHLOR 0.9% 250 ML INJ 250 ML IV SCH (20:46)
[2016-08-08] VITALS (14 sets, daily range): BP systolic 112–122; BP diastolic 54–68; PULSE 95–103; RESP 16–18; TEMP 97.5–98.3; O2SAT 95–99
[2016-08-08] MEDS: PHYTONADIONE 5 MG TAB PO SCH ×2 (01:53→08:58)
[2016-08-08] MEDS: HYDROmorphone HCL PF 1 MG/ML VIAL IV PUSH PRN ×4 (03:56→20:28)
[2016-08-08 05:15] LABS: AUTOMATED NEUTROPHIL # 4.4 TH/MM3 (1.8-7.7); BASOPHIL % 0.2 % (0.0-2.0); EOSINOPHIL # 0.1 TH/MM3 (0-0.4); EOSINOPHIL % 1.8 % (0.0-4.0); HEMATOCRIT 23.7 % (35.0-46.0); LYMPHOCYTE # 0.9 TH/MM3 (1.0-4.8); MEAN CELL VOLUME 102.6 FL (80.0-100.0); MEAN CORPUSCULAR HEMOGLOBIN 34.1 PG (27.0-34.0); MEAN CORPUSCULAR HGB CONC 33.2 % (32.0-36.0); MONO % 5.9 % (0.0-8.0); NEUT % 77.1 % (16.0-70.0); PLATELET COUNT 45 TH/MM3 (150-450); RED BLOOD COUNT 2.31 MIL/MM3 (4.00-5.30); RED CELL DISTRIBUTION WIDTH 21.4 % (11.6-17.2); WHITE BLOOD COUNT 5.7 TH/MM3 (4.0-11.0)
[2016-08-08 05:17] LABS: HEMO FLAGS DIFF FINAL
[2016-08-08] MEDS: PENTOXIFYLLINE 400 MG CONTROLLED RELEASE TAB PO SCH ×3 (05:20→20:37)
[2016-08-08 05:22] LABS: INTERNATIONAL NORMALIZED RATIO 2.1 RATIO; PROTHROMBIN TIME - PATIENT 24.4 SEC (9.8-11.6)
[2016-08-08] MEDS: ONDANSETRON HCL 4 MG/2 ML VIAL IVP PRN ×2 (05:26→20:28)
[2016-08-08 05:31] LABS: ALKALINE PHOSPHATASE 131 U/L (45-117); ALT (GPT) 27 U/L (10-53); ANION GAP 12 MEQ/L (5-15); AST (GOT) 80 U/L (15-37); BICARBONATE 25.3 MEQ/L (21.0-32.0); BLOOD UREA NITROGEN 6 MG/DL (7-18); CHLORIDE 100 MEQ/L (98-107); GLOMERULAR FILTRATION RATE 109 ML/MIN (>89); SODIUM (NA) 137 MEQ/L (136-145); TOTAL BILIRUBIN ADULT 12.5 MG/DL (0.2-1.0)
[2016-08-08 05:43] LABS: POTASSIUM 2.8 MEQ/L (3.5-5.1)
[2016-08-08] MEDS ORDERED: POTASSIUM CHLORIDE 20 MEQ CONTROLLED RELEASE TAB PO ONE (06:15)
[2016-08-08] MEDS: POTASSIUM CHLOR 20 MEQ PREMIX 100 ML IV SCH ×2 (06:28→08:55)
[2016-08-08] MEDS ORDERED: SODIUM CHLOR 0.9% 250 ML INJ 250 ML IV ONE (08:15)
--- NOTE | 2016-08-08 08:28 | MB ---
cc: ANTONIO BUSTAMANTE M.D. DATE OF CONSULTATION 08/07/2016 REASON FOR CONSULTATION Consult requested by [facility]PAS for evaluation of coagulopathy. HISTORY OF PRESENT ILLNESS Christy is a 41-year female. She has a history of alcoholism and cirrhosis of the liver. She came into the hospital complaining of worsening of the abdominal pain. The patient was admitted to the hospital. She had a CT scan of the abdomen and pelvis which showed marked splenomegaly and cirrhosis of the liver with ascites and diffuse thickening involving the wall of the colon suggesting colitis. The patient is suspected to have subacute bacterial peritonitis and has been on the antibiotics. The patient will require a paracentesis, but her INR is elevated. Her INR yesterday was 1.8 and today is 1.9. I have been asked to see her for further evaluation. The patient denies any bleeding whatsoever. She denies any nausea or vomiting. She is complaining of abdominal discomfort and right-sided chest pain. Her appetite is good. She stated that she had stopped drinking alcohol now. The rest of the review of systems is negative. PAST MEDICAL HISTORY 1. Diabetes mellitus 2. Kidney stones 3. Alcoholism 4. Liver cirrhosis PAST SURGICAL HISTORY 1. Appendectomy 2. Cholecystectomy 3. Upper endoscopy 4. C-sections 5. History of bile duct stent placement. ALLERGIES MORPHINE MEDICATIONS 1. Aldactone 2. Zantac 3. Pentoxifylline 4. Lactulose FAMILY HISTORY Noncontributory SOCIAL HISTORY The patient used to drink alcohol heavily. but quit last year November. Now the patient drinks beer. She does not smoke cigarettes. PHYSICAL EXAM This is a well-developed, well-nourished female in no apparent distress. VITAL SIGNS: Temperature 97.9, heart rate is 100, blood pressure 128/59, O2 saturation 97%. HEENT: PERRLA, EOMI. Sclerae is icteric. No oral lesions noted. NECK: No lymphadenopathy. LUNGS: Clear. No wheezing, rhonchi or rales. HEART: Regular rate and rhythm. ABDOMEN: Distended. Ascites noted. Unable to feel the liver and spleen due to the ascites. EXTREMITIES: Edema noted. NEUROLOGIC: Awake, alert and oriented times three. SKIN: Jaundiced. ASSESSMENT 1. Coagulopathy due to cirrhosis of the liver. 2. Alcoholism with liver cirrhosis. PLAN I have reviewed her available records and I have discussed with the patient regarding the coagulopathy. The patient has coagulopathy from liver disease, but she is not bleeding. Her coag's yesterday showed that the INR was 1.8 and the APTT was 36.1. Today the INR was 1.9. The patient had received vitamin K 2.5 mg only last night. My recommendation is to increase vitamin K to 10 mg given daily for at least three days. The patient could have fresh frozen plasma prior to the paracentesis which would be adequate for that procedure. Further recommendations based on her hospital stay. Thank you for asking my opinion. Hiram Bustamante MD /CHRISTIANE /12:23 AM /8:20 AM
[2016-08-08] MEDS: MULTIVITAMINS/MINERALS THERAPEUTIC TAB PO SCH (08:58)
[2016-08-08] MEDS: LACTULOSE SYRUP 20 GM/30 ML CUP PO SCH (08:58)
[2016-08-08] MEDS: DOCUSATE SODIUM 50 MG/SENNA 8.6 MG TAB PO SCH ×2 (08:58→20:31)
[2016-08-08] MEDS: FOLIC ACID 1 MG TAB PO SCH (08:58)
[2016-08-08] MEDS: SPIRONOLACTONE 100 MG TAB PO SCH (08:58)
[2016-08-08] MEDS: FAMOTIDINE 20 MG TAB PO SCH ×2 (08:58→20:31)
[2016-08-08] MEDS: THIAMINE HCL 100 MG TAB PO SCH (08:58)
[2016-08-08] MEDS: SODIUM CHLORIDE 0.9% FLUSH 10 ML FLUSH IV FLUSH SCH ×2 (08:59→20:32)
[2016-08-08] MEDS: FUROSEMIDE 40 MG TAB PO SCH ×2 (09:00→20:31)
--- NOTE | 2016-08-08 09:52 | HHI.PR ---
Subjective Remarks Follow-up/liver failure/coagulopathy/thrombocytopenia/macrocytic anemia 08/07/16-patient seen and examined; complains of abdominal pain and distention. Denies any current GI bleed. Denies any chest pain or significant shortness of breath 08/08/16-patient seen and examined, still complains of abdominal pain and distention, denies any shortness of breath. Reports dark colored urine but no bloody bowel movement Objective Vitals Vital Signs Date Time Temp Pulse Resp B/P Pulse Ox O2 Delivery O2 Flow Rate FiO2 08/08/16 08:51 98 21 08/08/16 08:00 97.8 103 17 122/58 98 08/08/16 04:00 97.5 101 18 113/54 96 08/08/16 00:00 97.7 101 18 122/60 96 08/07/16 20:24 98 21 08/07/16 20:00 98.7 98 20 125/69 100 08/07/16 15:59 97.5 111 20 136/65 97 08/07/16 12:00 96.9 106 20 134/71 96 08/07/16 10:47 98 21 I/O 08/07/16 08/07/16 08/07/16 08/08/16 08/08/16 08/08/16 07:00 15:00 23:00 07:00 15:00 23:00 Intake Total 371 ml 374 ml 0 ml 682 ml Output Total 1050 ml 900 ml 600 ml 1325 ml Balance -679 ml -526 ml -600 ml -643 ml Intake Oral 0 ml 0 ml 0 ml 120 ml IV Total 371 ml 374 ml 562 ml Output Urine Total 1050 ml 900 ml 600 ml 1325 ml # Bowel Movements 0 1 1 0 Result Diagram: 08/08/16 0439 08/08/16 0439 Imaging Last Impressions Abdomen/Pelvis CT 08/07/16 0000 Signed Impressions: Service Date/Time: Sunday, August 07, 2016 16:05 - CONCLUSION: 1. Marked splenomegaly. 2. Subtle nodularity of the contour of the liver suggesting cirrhosis. 3. Diffuse thickening involving the wall of the colon suggesting edema and/or colitis. Clinical correlation is recommended. 4. Ascites within the abdomen and pelvis. 5. Subtle nodular density within the left lobe of the liver measuring 2 cm which is indeterminate. Outpatient MRI of the abdomen with contrast may be helpful for further evaluation of this finding if clinically indicated. 6. Recanalization of the umbilical vein indicating portal hypertension. Varices are noted throughout the anterior peritoneum also. Maikel Pompa MD Chest X-Ray 08/06/161816 Signed Impressions: Service Date/Time: Saturday, August 06, 2016 18:43 - CONCLUSION: Mild right base consolidation. Michoacano Kuhn MD Objective Remarks GENERAL: NAD SKIN: Warm and dry. Jaundiced HEAD: Normocephalic. EYES: + scleral icterus. No injection or drainage. NECK: Supple, trachea midline. No JVD or lymphadenopathy. CARDIOVASCULAR: Regular rate and rhythm without murmurs, gallops, or rubs. RESPIRATORY: Breath sounds equal bilaterally. No accessory muscle use. GASTROINTESTINAL: Abdomen soft, non-tender, distended. Positive bowel sounds MUSCULOSKELETAL: No cyanosis, or edema. BACK: Nontender without obvious deformity. No CVA tenderness. A/P Problem List: (1) Community acquired bacterial pneumonia ICD Code: J15.9 Status: Acute (2) Liver failure ICD Code: K72.90 Status: Chronic (3) Thrombocytopenia ICD Code: D69.6 Status: Acute (4) Macrocytic anemia ICD Code: D53.9 Status: Acute (5) Hyperbilirubinemia ICD Code: E80.6 Status: Acute (6) Coagulopathy ICD Code: D68.9 Status: Acute Assessment and Plan 41 year-old female with Community-acquired pneumonia Continue with azithromycin and Rocephin DuoNeb when necessary and maintain oxygen saturation above 92% Acute on chronic liver disease -Gastroenterology consultation appreciated -CT abdomen noted and reviewed by me with finding of Subtle nodular density within the left lobe of the liver measuring 2 cm which is indeterminate. Outpatient MRI of the abdomen with contrast may be helpful for further evaluation of this finding if clinically indicated. -Currently on spironolactone, Lasix,Pentoxifyllin -Previously patient Liver workup negative for autoimmune disease -Patient may need evaluation from liver transplant History of ascites -CT abdomen noted and reviewed by me with finding of Ascites within the abdomen and pelvis. 5. Subtle nodular density within the left lobe of the liver measuring 2 cm which is indeterminate. Outpatient MRI of the abdomen with contrast may be helpful for further evaluation of this finding if clinically indicated. -Plan for paracentesis when INR within normal limits -Continue treatment as in above -GI consultation appreciated Hyperbilirubinemia Likely secondary to liver disease as patient with previous cholecystectomy. On previous admissions, CBD stone or choledocholithiasis was ruled out GI consultation appreciated and continue to monitor level Hyperammonemia Secondary to liver disease Continue lactulose Monitor ammonia level Thrombocytopenia Secondary to liver disease Monitor platelet count Coagulopathy Secondary to liver failure Status post vitamin K 2.51 and monitor INR/PT Treatment with vitamin K 10 mg daily and to 08/12/16 Consider FFP Macrocytic anemia due to chronic disease H&H at baseline Hypokalemia Replace electrolytes and monitor Clear liquid diet and advance as tolerated DVT prophylaxis: Bilateral SCDs GI prophylaxis: PPI Charli Shafer MD Aug 08, 2016 09:52
[2016-08-08] MEDS ORDERED: POTASSIUM PHOSPHATE INJ 30 MMOL in SODIUM CHLOR 0.9% 250 ML INJ 250 ML IV ONE (10:00)
--- NOTE | 2016-08-08 10:18 | PD.ONC.PN ---
Subjective Subjective Remarks Afebrile overnight. Patient having abdominal fullness d/t ascites. Wants to have fluid removed. No obvious bleeding. Objective Data Date Time Temp Pulse Resp B/P Pulse Ox O2 Delivery O2 Flow Rate FiO2 08/08/16 08:51 98 21 08/08/16 08:00 97.8 103 17 122/58 98 08/08/16 04:00 97.5 101 18 113/54 96 08/08/16 00:00 97.7 101 18 122/60 96 08/07/16 20:24 98 21 08/07/16 20:00 98.7 98 20 125/69 100 08/07/16 15:59 97.5 111 20 136/65 97 08/07/16 12:00 96.9 106 20 134/71 96 08/07/16 10:47 98 21 08/08/16 08/08/16 08/08/16 07:00 15:00 23:00 Intake Total 682 ml Output Total 1325 ml Balance -643 ml Result Diagram: 08/08/16 0439 08/08/16 0439 Laboratory Results Laboratory Tests Test 08/08/16 08/08/16 04:39 09:03 White Blood Count 5.7 TH/MM3 Red Blood Count 2.31 MIL/MM3 Hemoglobin 7.9 GM/DL Hematocrit 23.7 % Mean Corpuscular Volume 102.6 FL Mean Corpuscular Hemoglobin 34.1 PG Mean Corpuscular Hemoglobin 33.2 % Concent Red Cell Distribution Width 21.4 % Platelet Count 45 TH/MM3 Mean Platelet Volume 7.6 FL Neutrophils (%) (Auto) 77.1 % Lymphocytes (%) (Auto) 15.0 % Monocytes (%) (Auto) 5.9 % Eosinophils (%) (Auto) 1.8 % Basophils (%) (Auto) 0.2 % Neutrophils # (Auto) 4.4 TH/MM3 Lymphocytes # (Auto) 0.9 TH/MM3 Monocytes # (Auto) 0.3 TH/MM3 Eosinophils # (Auto) 0.1 TH/MM3 Basophils # (Auto) 0.0 TH/MM3 CBC Comment DIFF FINAL Differential Comment Prothrombin Time 24.4 SEC Prothromb Time International 2.1 RATIO Ratio Sodium Level 137 MEQ/L Potassium Level 2.8 MEQ/L Chloride Level 100 MEQ/L Carbon Dioxide Level 25.3 MEQ/L Anion Gap 12 MEQ/L Blood Urea Nitrogen 6 MG/DL Creatinine 0.61 MG/DL Estimat Glomerular Filtration 109 ML/MIN Rate Random Glucose 106 MG/DL Calcium Level 7.7 MG/DL Total Bilirubin 12.5 MG/DL Aspartate Amino Transf 80 U/L (AST/SGOT) Alanine Aminotransferase 27 U/L (ALT/SGPT) Alkaline Phosphatase 131 U/L Ammonia 60 MCMOL/L Total Protein 6.0 GM/DL Albumin 2.3 GM/DL Blood Bank Comment Culture Results Microbiology Date/Time Procedure Status Source Growth 08/06/16 19:40 Aerobic Blood Culture - Preliminary Resulted Blood Peripheral NO GROWTH IN 1 DAY 08/06/16 19:40 Anaerobic Blood Culture - Preliminary Resulted Blood Peripheral NO GROWTH IN 1 DAY 08/06/16 19:45 Aerobic Blood Culture - Preliminary Resulted Blood Peripheral NO GROWTH IN 1 DAY 08/06/16 19:45 Anaerobic Blood Culture - Preliminary Resulted Blood Peripheral NO GROWTH IN 1 DAY Administered Medications Medications (Trade) Dose Ordered Sig/Ric Route PRN Reason Start Time Stop Time Status Last Admin Dose Admin Sodium Chloride (NS Flush) 2 ml BID IV FLUSH 08/06/16 21:00 08/08/16 08:59 Ondansetron HCl (Zofran Inj) 4 mg Q6H PRN IVP NAUSEA OR VOMITING 08/06/16 20:15 08/08/16 05:26 Senna/Docusate Sodium 1 tab 1 tab BID PO 08/06/16 21:00 08/07/16 09:46 Ceftriaxone Sodium 1000 mg/ Sodium Chloride 100 ml @ 200 mls/hr Q24H IV 08/07/16 20:00 08/07/16 20:46 Azithromycin/ Sodium Chloride (Zithromax Inj/ NS 250 ml Inj) 250 ml @ 250 mls/hr Q24H IV 08/07/16 21:00 08/07/16 20:46 Folic Acid (Folate) 1 mg DAILY PO 08/07/16 09:00 08/12/16 08:59 08/08/16 08:58 Thiamine HCl (Vitamin B1) 100 mg DAILY PO 08/06/16 20:30 08/08/16 08:58 Multivitamins/ Minerals Therapeutic (Theragran M Tab) 1 tab DAILY PO 08/07/16 09:00 08/12/16 08:59 08/08/16 08:58 Furosemide (Lasix) 40 mg BID PO 08/06/16 21:00 08/08/16 09:00 Lactulose (Lactulose Liq) 30 ml DAILY PO 08/07/16 09:00 08/08/16 08:58 Pentoxifylline (TRENtal SR) 400 mg Q8HR PO 08/06/16 22:00 08/08/16 05:20 Spironolactone (Aldactone) 100 mg DAILY PO 08/07/16 09:00 08/08/16 08:58 Famotidine (Pepcid) 20 mg BID PO 08/06/16 21:00 08/08/16 08:58 Hydromorphone HCl (Dilaudid Pf Inj) 0.5 mg Q4H PRN IV PUSH PAIN SCALE 6 TO 10 08/06/16 23:30 08/08/16 08:58 Phytonadione 10 mg 10 mg DAILY PO 08/08/16 00:15 08/12/16 00:14 08/08/16 08:58 Potassium Chloride 100 ml @ 50 mls/hr Q2H IV 08/08/16 06:15 08/08/16 10:14 08/08/16 08:55 Sodium Chloride (NS 250 ml Inj) 250 ml @ 15 mls/hr ONCE ONCE IV 08/08/16 08:15 08/09/16 00:54 08/08/16 08:59 Objective Remarks GENERAL: Young woman, lying in bed in nad. SKIN: Warm and dry. HEAD: Normocephalic. EYES: No injection or drainage. NECK: Supple, trachea midline. CARDIOVASCULAR: Regular rate and rhythm RESPIRATORY: Breath sounds equal bilaterally. No accessory muscle use. GASTROINTESTINAL: Abdomen distended with ascites. EXTREMITIES: No cyanosis NEUROLOGICAL: awake and alert, normal speech Assessment/Plan Problem List: (1) Coagulopathy Status: Acute Plan: 08/08: will give 2 units FFP stat then repeat INR, give 2 additional units if INR remains greater than 1.5, in preparation for paracentesis. --due to liver disease --vitamin K 10mg SQ given 08/07 without improvement in INR (2) Thrombocytopenia Status: Acute Plan: --due to liver disease --around 50K-70K seems to be her baseline. Assessment 41y/o with liver cirrhosis. Hematology consulted for evaluation of coagulopathy. Admitted with abdominal pain-->suspected to have subacute bacterial peritonitis and has been on the antibiotics. h/o Diabetes mellitus Kidney stones Alcoholism Liver cirrhosis Appendectomy Cholecystectomy Upper endoscopy C-sections History of bile duct stent placement. Attending Statement Complaining of abdominal distention and discomfort INR is rising Give the FFP and repeat INR IR To do paracentesis The exam, history, and the medical decision-making described in the above note were completed with the assistance of the mid-level provider. I reviewed and agree with the findings presented. I attest that I had a [id number] encounter with the patient on the same day, and personally performed and documented my assessment and findings in the medical record. Yaima Francois Aug 08, 2016 10:18 Ciro Bustamante MD Aug 09, 2016 01:31
[2016-08-08] MEDS ORDERED: POTASSIUM CHLORIDE 10 MEQ CONTROLLED RELEASE TAB PO ONE (10:30)
--- NOTE | 2016-08-08 11:01 | HHI.GIFU ---
Subjective Remarks Pt resting in bed, no apparent distress. Says she has nausea, no vomiting but would like to try clears. Still with abdominal pain, swelling. (Blanka Reynoso) Objective Vitals I&O Vital Signs Date Time Temp Pulse Resp B/P Pulse Ox O2 Delivery O2 Flow Rate FiO2 08/08/16 08:51 98 21 08/08/16 08:00 97.8 103 17 122/58 98 08/08/16 04:00 97.5 101 18 113/54 96 08/08/16 00:00 97.7 101 18 122/60 96 08/07/16 20:24 98 21 08/07/16 20:00 98.7 98 20 125/69 100 08/07/16 15:59 97.5 111 20 136/65 97 08/07/16 12:00 96.9 106 20 134/71 96 I/O 08/07/16 08/07/16 08/07/16 08/08/16 08/08/16 08/08/16 07:00 15:00 23:00 07:00 15:00 23:00 Intake Total 371 ml 374 ml 0 ml 682 ml Output Total 1050 ml 900 ml 600 ml 1325 ml Balance -679 ml -526 ml -600 ml -643 ml Intake Oral 0 ml 0 ml 0 ml 120 ml IV Total 371 ml 374 ml 562 ml Output Urine Total 1050 ml 900 ml 600 ml 1325 ml # Bowel Movements 0 1 1 0 Laboratory Laboratory Tests Test 08/08/16 08/08/16 04:39 09:03 White Blood Count 5.7 Red Blood Count 2.31 Hemoglobin 7.9 Hematocrit 23.7 Mean Corpuscular Volume 102.6 Mean Corpuscular Hemoglobin 34.1 Mean Corpuscular Hemoglobin 33.2 Concent Red Cell Distribution Width 21.4 Platelet Count 45 Mean Platelet Volume 7.6 Neutrophils (%) (Auto) 77.1 Lymphocytes (%) (Auto) 15.0 Monocytes (%) (Auto) 5.9 Eosinophils (%) (Auto) 1.8 Basophils (%) (Auto) 0.2 Neutrophils # (Auto) 4.4 Lymphocytes # (Auto) 0.9 Monocytes # (Auto) 0.3 Eosinophils # (Auto) 0.1 Basophils # (Auto) 0.0 CBC Comment DIFF FINAL Differential Comment Prothrombin Time 24.4 Prothromb Time International 2.1 Ratio Sodium Level 137 Potassium Level 2.8 Chloride Level 100 Carbon Dioxide Level 25.3 Anion Gap 12 Blood Urea Nitrogen 6 Creatinine 0.61 Estimat Glomerular Filtration 109 Rate Random Glucose 106 Calcium Level 7.7 Total Bilirubin 12.5 Aspartate Amino Transf 80 (AST/SGOT) Alanine Aminotransferase 27 (ALT/SGPT) Alkaline Phosphatase 131 Ammonia 60 Total Protein 6.0 Albumin 2.3 Blood Bank Comment Date/Time Procedure Status Source Growth 08/06/16 19:45 Aerobic Blood Culture - Preliminary Resulted Blood Peripheral NO GROWTH IN 1 DAY 08/06/16 19:45 Anaerobic Blood Culture - Preliminary Resulted Blood Peripheral NO GROWTH IN 1 DAY Imaging Last Impressions Abdomen/Pelvis CT 08/07/16 0000 Signed Impressions: Service Date/Time: Sunday, August 07, 2016 16:05 - CONCLUSION: 1. Marked splenomegaly. 2. Subtle nodularity of the contour of the liver suggesting cirrhosis. 3. Diffuse thickening involving the wall of the colon suggesting edema and/or colitis. Clinical correlation is recommended. 4. Ascites within the abdomen and pelvis. 5. Subtle nodular density within the left lobe of the liver measuring 2 cm which is indeterminate. Outpatient MRI of the abdomen with contrast may be helpful for further evaluation of this finding if clinically indicated. 6. Recanalization of the umbilical vein indicating portal hypertension. Varices are noted throughout the anterior peritoneum also. Maikel Pompa MD Chest X-Ray 08/06/161816 Signed Impressions: Service Date/Time: Saturday, August 06, 2016 18:43 - CONCLUSION: Mild right base consolidation. Michoacano Kuhn MD Physical Exam HEENT: normocephalic; atraumatic; +icterus CHEST: CTA CARDIAC: RRR + murmur ABDOMEN: Soft, distended, diffuse TTP worse on right side; no hepatosplenomegaly; bowel sounds are present in all four quadrants. EXTREMITIES: No clubbing, cyanosis, or edema. SKIN: Normal; no rash; + jaundice. CLINICAL INFORMATICS SPECIALIST: No focal deficits; alert and oriented times three. (Blanka Reynoso) Assessment and Plan Plan ASSESSMENT - abdominal pain, swelling - pt diagnosed with PNA. AFP 2.1 has previously needed paracentesis. CT 08-07-16 --> 1. Marked splenomegaly. 2. Subtle nodularity of the contour of the liver suggesting cirrhosis. 3. Diffuse thickening involving the wall of the colon suggesting edema and/or colitis. Clinical correlation is recommended. 4. Ascites within the abdomen and pelvis. 5. Subtle nodular density within the left lobe of the liver measuring 2 cm which is indeterminate. 6. Recanalization of the umbilical vein indicating portal hypertension. Varices are noted throughout the anterior peritoneum also Pt on diuretics. d/w primary, oncology, pt to receive vit k, FFP and then rck INR and do paracentesis when INR < 1.5 - elevated LFTs, jaundice - hx cirrhosis, likely 2/2 ETOH. US 07-02-16--> liver enlarged to 20cm suspected hepatocellular dz, splenomegaly 18.6cm, no free fluid. Prev liver w/u neg for hep, autoimmune dz. MELD mckinney 18, UNOS 23. Hold on liver bx for now, will await CT. consider liver transplant, will consult case mgmt. - coagulopathy - INR 2.1. vitamin K, FFP PLAN - clears - await consult case mgmt re liver transplant - paracentesis - vit k - FFP - MRI abd w/ contrast - continue pentoxifylline - continue diuretics - continue lactulose - low sodium diet - monitor labs - supportive care This pt seen by myself and Dr Packer and this note is written on his behalf ( Blanka Reynoso) Physician Comments Seen and examined with SHEARER OPERATOR, MRI liver and AFP ordered. Referral made to consider liver transplant. (Laurie Packer MD) Blanka Reynoso Aug 08, 2016 11:01 Laurie Packer MD Aug 08, 2016 14:33
[2016-08-08] MEDS: AZITHROMYCIN INJ 500 MG in SODIUM CHLOR 0.9% 250 ML INJ 250 ML IV SCH (20:27)
[2016-08-08] MEDS: cefTRIAXone INJ 1,000 MG in SODIUM CHLORIDE 0.9% INJ 100 ML IV SCH (20:31)
[2016-08-08] MEDS ORDERED: GADODIAMIDE PF 287 MG/ML 5 ML VIAL (for RAD MRI) IV ONE (22:12)
--- NOTE | 2016-08-08 22:52 | RADRPT ---
EXAM DATE/TIME: 08/08/2016 21:36 [facility] COMPARISON: CT ABDOMEN & PELVIS W CONTRAST, August 07, 2016, 16:05. INDICATIONS : Mass. CONTRAST: 14 cc Omniscan (gadodiamide) IV MEDICAL HISTORY : Cirrhosis. Diabetes. SURGICAL HISTORY : Cholecystectomy. Appendectomy. section. ENCOUNTER: Subsequent ACUITY: 1 day PAIN SCORE: 3/10 LOCATION: Abdomen. TECHNIQUE: Multiplanar, multisequence magnetic resonance imaging of the abdomen was performed without and with i ntravenous contrast. FINDINGS: Small and heterogeneous attenuation and enhancing liver noted compatible cirrhosis. A few scattered s ubcentimeter cysts are noted. There is a vague area of 18 mm round signal abnormality in the medial s egment of the left hepatic lobe, series 10 image 27. No suspicious enhancement features are demonstra vijaya. Marked splenomegaly noted. No focal splenic lesion. Small to moderate ascites. Portal vein is patent. Pancreas, adrenal glands and kidneys are within normal limits. CONCLUSION: 1. 18 mm lesion in the medial segment of the left hepatic lobe has MRI features most typical of a reg enerating nodule. Early hepatocellular carcinoma considered less likely but please correlate with alp mendez-fetoprotein levels. A followup MRI of the abdomen with and without contrast is recommended in 4-6 months. 2. A few scattered hepatic cysts are noted. 3. There is cirrhosis and evidence of portal hypertension including splenomegaly, portosystemic colla terals and small to moderate ascites. Patent portal vein. Michoacano Kuhn MD on August 08, 2016 at 22:44 Board Certified Radiologist. This report was verified electronically.
[2016-08-09] VITALS: BP 114/56; PULSE 93; RESP 18; TEMP 98; O2SAT 98
[2016-08-09] MEDS: HYDROmorphone HCL PF 1 MG/ML VIAL IV PUSH PRN ×6 (01:08→21:29)
[2016-08-09 04:00] VITALS: BP 104/53; PULSE 98; RESP 18; TEMP 97.6; O2SAT 97
[2016-08-09] MEDS: PENTOXIFYLLINE 400 MG CONTROLLED RELEASE TAB PO SCH ×3 (05:39→19:45)
[2016-08-09] MEDS: ONDANSETRON HCL 4 MG/2 ML VIAL IVP PRN ×2 (05:41→21:28)
[2016-08-09 06:19] LABS: AUTOMATED NEUTROPHIL # 3.7 TH/MM3 (1.8-7.7); BASOPHIL % 0.5 % (0.0-2.0); EOSINOPHIL # 0.1 TH/MM3 (0-0.4); EOSINOPHIL % 2.1 % (0.0-4.0); HEMATOCRIT 24.1 % (35.0-46.0); LYMPH % 20.3 % (9.0-44.0); LYMPHOCYTE # 1.1 TH/MM3 (1.0-4.8); MEAN CELL VOLUME 103.5 FL (80.0-100.0); MEAN CORPUSCULAR HEMOGLOBIN 34.7 PG (27.0-34.0); MEAN CORPUSCULAR HGB CONC 33.5 % (32.0-36.0); MONO % 7.5 % (0.0-8.0); NEUT % 69.6 % (16.0-70.0); PLATELET COUNT 50 TH/MM3 (150-450); RED BLOOD COUNT 2.33 MIL/MM3 (4.00-5.30); RED CELL DISTRIBUTION WIDTH 21.5 % (11.6-17.2); WHITE BLOOD COUNT 5.4 TH/MM3 (4.0-11.0)
[2016-08-09 06:23] LABS: HEMO FLAGS AUTO DIFF
[2016-08-09 06:29] LABS: INTERNATIONAL NORMALIZED RATIO 1.8 RATIO; PROTHROMBIN TIME - PATIENT 20.4 SEC (9.8-11.6)
[2016-08-09 06:45] LABS: ANION GAP 11 MEQ/L (5-15); AST (GOT) 78 U/L (15-37); BLOOD UREA NITROGEN 5 MG/DL (7-18); CHLORIDE 95 MEQ/L (98-107); GLOMERULAR FILTRATION RATE 100 ML/MIN (>89); POTASSIUM 3.1 MEQ/L (3.5-5.1); SODIUM (NA) 133 MEQ/L (136-145)
[2016-08-09 06:46] LABS: ALT (GPT) 27 U/L (10-53)
[2016-08-09 06:48] LABS: ALKALINE PHOSPHATASE 124 U/L (45-117); TOTAL BILIRUBIN ADULT 10.8 MG/DL (0.2-1.0)
[2016-08-09 07:15] LABS: SCAN/DIFF AUTO DIFF CONFIRMED
--- NOTE | 2016-08-09 07:56 | HHI.PR ---
Subjective Remarks resting comfortably with no acute distress. says that she's feeling better today. abdominal pain is mild. no fever. Objective Vitals Vital Signs Date Time Temp Pulse Resp B/P Pulse Ox O2 Delivery O2 Flow Rate FiO2 08/09/16 04:00 97.6 98 18 104/53 97 08/09/16 00:00 98.0 93 18 114/56 98 08/08/16 20:00 98.3 99 18 117/58 96 08/08/16 18:54 98.0 102 16 113/61 95 08/08/16 18:40 98.0 102 16 117/61 96 08/08/16 17:30 98.0 95 18 117/68 99 08/08/16 16:00 98.0 101 16 118/64 97 08/08/16 15:14 97.8 98 17 113/61 97 08/08/16 14:41 97.9 101 17 120/68 99 08/08/16 12:31 98.0 96 16 112/61 97 08/08/16 12:05 97.5 98 16 113/63 99 08/08/16 12:00 98.0 101 17 121/66 99 08/08/16 08:51 98 21 08/08/16 08:00 97.8 103 17 122/58 98 I/O 08/08/16 08/08/16 08/08/16 08/09/16 08/09/16 08/09/16 07:00 15:00 23:00 07:00 15:00 23:00 Intake Total 682 ml 1022 ml 340 ml 240 ml Output Total 1325 ml 900 ml 2500 ml 900 ml Balance -643 ml 122 ml -2160 ml -660 ml Intake Oral 120 ml 120 ml 240 ml 240 ml IV Total 562 ml 582 ml 100 ml FFP 320 ml Output Urine Total 1325 ml 900 ml 2500 ml 900 ml # Bowel Movements 0 0 0 0 Result Diagram: 08/09/16 0533 08/09/16 0533 Imaging Last Impressions Abdomen MRI 08/08/16 0000 Signed Impressions: Service Date/Time: Monday, August 08, 2016 21:36 - CONCLUSION: 1. 18 mm lesion in the medial segment of the left hepatic lobe has MRI features most typical of a regenerating nodule. Early hepatocellular carcinoma considered less likely but please correlate with alpha-fetoprotein levels. A followup MRI of the abdomen with and without contrast is recommended in 4-6 months. 2. A few scattered hepatic cysts are noted. 3. There is cirrhosis and evidence of portal hypertension including splenomegaly, portosystemic collaterals and small to moderate ascites. Patent portal vein. Michoacano Kuhn MD Abdomen/Pelvis CT 08/07/16 0000 Signed Impressions: Service Date/Time: Sunday, August 07, 2016 16:05 - CONCLUSION: 1. Marked splenomegaly. 2. Subtle nodularity of the contour of the liver suggesting cirrhosis. 3. Diffuse thickening involving the wall of the colon suggesting edema and/or colitis. Clinical correlation is recommended. 4. Ascites within the abdomen and pelvis. 5. Subtle nodular density within the left lobe of the liver measuring 2 cm which is indeterminate. Outpatient MRI of the abdomen with contrast may be helpful for further evaluation of this finding if clinically indicated. 6. Recanalization of the umbilical vein indicating portal hypertension. Varices are noted throughout the anterior peritoneum also. Maikel Pompa MD Chest X-Ray 08/06/167 Signed Impressions: Service Date/Time: Saturday, August 06, 2016 18:43 - CONCLUSION: Mild right base consolidation. Michoacano Kuhn MD Objective Remarks GENERAL: This is a well-nourished, well-developed patient, in no apparent distress. CARDIOVASCULAR: Regular rate and regular rhythm without murmurs, gallops, or rubs. RESPIRATORY: diminished air entry in bases. GASTROINTESTINAL: Abdomen soft, non-tender, nondistended. Normal, active bowel sounds MUSCULOSKELETAL: Extremities without clubbing, cyanosis, or edema. NEURO: Alert & Oriented x4 to person, place, time, situation. Moves all ext x4 Medications and IVs Current Medications Ondansetron HCl (Zofran Inj) 4 mg ONCE ONCE IVP Last administered on 18:39; Start 08/06/16 at 18:30; Stop 08/06/16 at 18:31; Status DC Sodium Chloride (NS Flush) 2 ml UNSCH PRN IV FLUSH FLUSH AFTER USING IV ACCESS ; Start 08/06/16 at 18:30; Stop 08/06/16 at 20:11; Status DC Furosemide 40 mg 40 mg ONCE ONCE IV PUSH Last administered on 08/06/16 18:39 ; Start 08/06/16 at 18:30; Stop 08/06/16 at 18:31; Status DC Ceftriaxone Sodium 1000 mg/ Sodium Chloride 100 ml @ 200 mls/hr ONCE ONCE IV Last administered on 08/06/16 19:56; Start 08/06/16 at 19:15; Stop 08/06/16 at 19:44; Status DC Azithromycin/ Sodium Chloride (Zithromax Inj/ NS 250 ml Inj) 250 ml @ 250 mls/ hr ONCE ONCE IV Last administered on 08/06/16 19:57; Start 08/06/16 at 19:15 ; Stop 08/06/16 at 20:15; Status DC Morphine Sulfate 2 mg 2 mg ONCE ONCE IV PUSH Last administered on 08/06/16 19 :57; Start 08/06/16 at 19:15; Stop 08/06/16 at 19:16; Status DC Sodium Chloride (NS 1000 ml Inj) 1,000 ml @ 50 mls/hr Q20H IV Last administered on 08/07/16 15:56; Start 08/06/16 at 20:04; Stop 08/07/16 at 20:03 ; Status DC Sodium Chloride (NS Flush) 2 ml UNSCH PRN IV FLUSH FLUSH AFTER USING IV ACCESS ; Start 08/06/16 at 20:15 Sodium Chloride (NS Flush) 2 ml BID IV FLUSH Last administered on 08/08/16 20: 32; Start 08/06/16 at 21:00 Ondansetron HCl (Zofran Inj) 4 mg Q6H PRN IVP NAUSEA OR VOMITING Last administered on 08/09/16 05:41; Start 08/06/16 at 20:15 Prochlorperazine (Compazine Supp) 25 mg Q12H PRN RECTAL NAUSEA OR VOMITING; Start 08/06/16 at 20:15 Senna/Docusate Sodium (Madeline-Colace) 1 tab BID PO Last administered on 09:46; Start 08/06/16 at 21:00 Magnesium Hydroxide (Milk Of Magnesia Liq) 30 ml Q12H PRN PO MILD - MODERATE CONSTIPATION; Start 08/06/16 at 20:15 Sennosides (Senokot) 17.2 mg Q12H PRN PO MODERATE - SEVERE CONSTIPATION; Start 08/06/16 at 20:15 Bisacodyl (Dulcolax Supp) 10 mg DAILY PRN RECTAL SEVERE CONSITIPATION; Start at 20:15 Lactulose 30 ml 30 ml DAILY PRN PO SEVERE CONSITIPATION; Start 08/06/16 at 20: 15 Ceftriaxone Sodium 1000 mg/ Sodium Chloride 100 ml @ 200 mls/hr Q24H IV Last administered on 08/08/16 20:31; Start 08/07/16 at 20:00 Azithromycin/ Sodium Chloride (Zithromax Inj/ NS 250 ml Inj) 250 ml @ 250 mls/ hr Q24H IV Last administered on 08/08/16 20:27; Start 08/07/16 at 21:00 Phytonadione (Mephyton) 2.5 mg ONCE ONCE PO Last administered on 08/06/16 22: 42; Start 08/06/16 at 20:15; Stop 08/06/16 at 20:20; Status DC Folic Acid (Folate) 1 mg DAILY PO Last administered on 08/08/16 08:58; Start 08/07/16 at 09:00; Stop 08/12/16 at 08:59 Thiamine HCl (Vitamin B1) 100 mg DAILY PO Last administered on 08/08/16 08:58 ; Start 08/06/16 at 20:30 Multivitamins/ Minerals Therapeutic (Theragran M Tab) 1 tab DAILY PO Last administered on 08/08/16 08:58; Start 08/07/16 at 09:00; Stop 08/12/16 at 08:59 Flumazenil (Romazicon Inj) 0.2 mg Q1M PRN IV PUSH SEE LABEL COMMENTS; Start 01/12 at 20:30 Lorazepam (Ativan) 1 mg Q4H PRN PO CIWA 8 - 10; Start 08/06/16 at 20:30 Lorazepam (Ativan Inj) 1 mg Q4H PRN IV PUSH CIWA 8 - 10; Start 08/06/16 at 20: 30 Lorazepam (Ativan) 2 mg Q2H PRN PO CIWA 11-14; Start 08/06/16 at 20:30 Lorazepam (Ativan Inj) 2 mg Q2H PRN IV PUSH CIWA 11-14; Start 08/06/16 at 20:30 Lorazepam (Ativan Inj) 2 mg Q1H PRN IV PUSH CIWA 15-20; Start 08/06/16 at 20:30 Lorazepam (Ativan Inj) 2 mg Q15M PRN IV PUSH CIWA > 20; Start 08/06/16 at 20:30 Furosemide (Lasix) 40 mg BID PO Last administered on 08/08/16 20:31; Start 01/12 at 21:00 Lactulose (Lactulose Liq) 30 ml DAILY PO Last administered on 08/08/16 08:58; Start 08/07/16 at 09:00 Pentoxifylline (TRENtal SR) 400 mg Q8HR PO Last administered on 08/09/16 05:39 ; Start 08/06/16 at 22:00 Spironolactone (Aldactone) 100 mg DAILY PO Last administered on 08/08/16 08:58 ; Start 08/07/16 at 09:00 Famotidine (Pepcid) 20 mg BID PO Last administered on 08/08/16 20:31; Start at 21:00 Miscellaneous (Pill Splitter) 1 ea UNSCH PRN OTHER SEE LABEL COMMENTS; Start at 22:30 Hydromorphone HCl (Dilaudid Pf Inj) 0.5 mg Q4H PRN IV PUSH PAIN SCALE 6 TO 10 Last administered on 08/09/16 05:40; Start 08/06/16 at 23:30 Diatrizoate Meglum/ Diatrizoate Sod ( Gastroview Liq) 18 ml ONCE ONCE PO Last administered on 08/07/16 12:55; Start 08/07/16 at 12:45; Stop 08/07/16 at 12:46; Status DC Iohexol (Omnipaque 350 Inj) 92 ml STK-MED ONCE IV Last administered on 16:07; Start 08/07/16 at 16:07; Stop 08/07/16 at 16:08; Status DC Phytonadione (Mephyton) 10 mg DAILY PO Last administered on 08/08/16 08:58; Start 08/08/16 at 00:15; Stop 08/12/16 at 00:14 Potassium Chloride 40 meq 40 meq ONCE ONCE PO Last administered on 08/08/16 06:28; Start 08/08/16 at 06:15; Stop 08/08/16 at 06:23; Status DC Potassium Chloride 100 ml @ 50 mls/hr Q2H IV Last administered on 08/08/16 08 :55; Start 08/08/16 at 06:15; Stop 08/08/16 at 10:14; Status DC Sodium Chloride 250 ml @ 15 mls/hr ONCE ONCE IV Last administered on 08:59; Start 08/08/16 at 08:15; Stop 08/09/16 at 00:54; Status DC Potassium Phosphate/Sodium Chloride (Potassium Phosphate Inj/NS 250 ml Inj) 260 ml @ 43.333 mls/ hr ONCE ONCE IV ; Start 08/08/16 at 10:00; Stop 08/08/16 at 10:30; Status DC Potassium Chloride (KCl) 30 meq ONCE ONCE PO Last administered on 08/08/16 10 :52; Start 08/08/16 at 10:30; Stop 08/08/16 at 10:32; Status DC Gadodiamide (Omniscan Pf Inj) 14 ml STK-MED ONCE IV Last administered on 22:12; Start 08/08/16 at 22:12; Stop 08/08/16 at 22:13; Status DC A/P Assessment and Plan A/P Community-acquired pneumonia Continue with azithromycin and Rocephin DuoNeb when necessary and maintain oxygen saturation above 92% Acute on chronic liver disease -Gastroenterology consultation appreciated -Currently on spironolactone, Lasix,Pentoxifyllin -Previously patient Liver workup negative for autoimmune disease -Patient may need evaluation from liver transplant History of ascites -Continue treatment as in above -GI following. Hyperbilirubinemia Likely secondary to liver disease as patient with previous cholecystectomy. On previous admissions, CBD stone or choledocholithiasis was ruled out GI consultation appreciated and continue to monitor level Hyperammonemia Secondary to liver disease Continue lactulose Monitor ammonia level Thrombocytopenia Secondary to liver disease Monitor platelet count Coagulopathy Secondary to liver failure s/p FFP transfusion vitamin K daily hematology following. Macrocytic anemia due to chronic disease H&H at baseline Hypokalemia Replace electrolytes and monitor Clear liquid diet and advance as tolerated DVT prophylaxis: Bilateral SCDs GI prophylaxis: PPI Jorge Phelps MD Aug 09, 2016 07:56
[2016-08-09 08:00] VITALS: BP 116/56; PULSE 103; RESP 20; TEMP 97.5; O2SAT 96
[2016-08-09] MEDS ORDERED: POTASSIUM CHLORIDE 10 MEQ CONTROLLED RELEASE TAB PO ONE ×2 (08:00→14:00)
[2016-08-09] MEDS: DOCUSATE SODIUM 50 MG/SENNA 8.6 MG TAB PO SCH ×2 (09:00→19:45)
--- NOTE | 2016-08-09 09:48 | HHI.GIFU ---
Subjective Remarks Pt resting in bed, says she feels much better. Denies n/v, abd pain. s/p paracentesis. (Blanka Reynoso) Objective Vitals I&O Vital Signs Date Time Temp Pulse Resp B/P Pulse Ox O2 Delivery O2 Flow Rate FiO2 08/09/16 08:00 97.5 103 20 116/56 96 08/09/16 04:00 97.6 98 18 104/53 97 08/09/16 00:00 98.0 93 18 114/56 98 08/08/16 20:00 98.3 99 18 117/58 96 08/08/16 18:54 98.0 102 16 113/61 95 08/08/16 18:40 98.0 102 16 117/61 96 08/08/16 17:30 98.0 95 18 117/68 99 08/08/16 16:00 98.0 101 16 118/64 97 08/08/16 15:14 97.8 98 17 113/61 97 08/08/16 14:41 97.9 101 17 120/68 99 08/08/16 12:31 98.0 96 16 112/61 97 08/08/16 12:05 97.5 98 16 113/63 99 08/08/16 12:00 98.0 101 17 121/66 99 I/O 08/08/16 08/08/16 08/08/16 08/09/16 08/09/16 08/09/16 07:00 15:00 23:00 07:00 15:00 23:00 Intake Total 682 ml 1022 ml 340 ml 490 ml 120 ml Output Total 1325 ml 900 ml 2500 ml 900 ml Balance -643 ml 122 ml -2160 ml -410 ml 120 ml Intake Oral 120 ml 120 ml 240 ml 240 ml 120 ml IV Total 562 ml 582 ml 100 ml 250 ml FFP 320 ml Output Urine Total 1325 ml 900 ml 2500 ml 900 ml # Bowel Movements 0 0 0 0 Laboratory Laboratory Tests Test 08/09/16 05:33 White Blood Count 5.4 Red Blood Count 2.33 Hemoglobin 8.1 Hematocrit 24.1 Mean Corpuscular Volume 103.5 Mean Corpuscular Hemoglobin 34.7 Mean Corpuscular Hemoglobin 33.5 Concent Red Cell Distribution Width 21.5 Platelet Count 50 Mean Platelet Volume 8.3 Neutrophils (%) (Auto) 69.6 Lymphocytes (%) (Auto) 20.3 Monocytes (%) (Auto) 7.5 Eosinophils (%) (Auto) 2.1 Basophils (%) (Auto) 0.5 Neutrophils # (Auto) 3.7 Lymphocytes # (Auto) 1.1 Monocytes # (Auto) 0.4 Eosinophils # (Auto) 0.1 Basophils # (Auto) 0.0 CBC Comment AUTO DIFF Differential Comment AUTO DIFF CONFIRMED Prothrombin Time 20.4 Prothromb Time International 1.8 Ratio Sodium Level 133 Potassium Level 3.1 Chloride Level 95 Carbon Dioxide Level 27.0 Anion Gap 11 Blood Urea Nitrogen 5 Creatinine 0.66 Estimat Glomerular Filtration 100 Rate Random Glucose 88 Calcium Level 8.1 Total Bilirubin 10.8 Direct Bilirubin 6.8 Aspartate Amino Transf 78 (AST/SGOT) Alanine Aminotransferase 27 (ALT/SGPT) Alkaline Phosphatase 124 Ammonia 77 Total Protein 6.1 Albumin 2.4 Date/Time Procedure Status Source Growth 08/06/16 19:45 Aerobic Blood Culture - Preliminary Resulted Blood Peripheral NO GROWTH IN 2 DAYS 08/06/16 19:45 Anaerobic Blood Culture - Preliminary Resulted Blood Peripheral NO GROWTH IN 2 DAYS Imaging Last Impressions Abdomen MRI 08/08/16 0000 Signed Impressions: Service Date/Time: Monday, August 08, 2016 21:36 - CONCLUSION: 1. 18 mm lesion in the medial segment of the left hepatic lobe has MRI features most typical of a regenerating nodule. Early hepatocellular carcinoma considered less likely but please correlate with alpha-fetoprotein levels. A followup MRI of the abdomen with and without contrast is recommended in 4-6 months. 2. A few scattered hepatic cysts are noted. 3. There is cirrhosis and evidence of portal hypertension including splenomegaly, portosystemic collaterals and small to moderate ascites. Patent portal vein. Michoacano Kuhn MD Abdomen/Pelvis CT 08/07/16 0000 Signed Impressions: Service Date/Time: Sunday, August 07, 2016 16:05 - CONCLUSION: 1. Marked splenomegaly. 2. Subtle nodularity of the contour of the liver suggesting cirrhosis. 3. Diffuse thickening involving the wall of the colon suggesting edema and/or colitis. Clinical correlation is recommended. 4. Ascites within the abdomen and pelvis. 5. Subtle nodular density within the left lobe of the liver measuring 2 cm which is indeterminate. Outpatient MRI of the abdomen with contrast may be helpful for further evaluation of this finding if clinically indicated. 6. Recanalization of the umbilical vein indicating portal hypertension. Varices are noted throughout the anterior peritoneum also. Maikel Pompa MD Chest X-Ray 08/06/161816 Signed Impressions: Service Date/Time: Saturday, August 06, 2016 18:43 - CONCLUSION: Mild right base consolidation. Michoacano Kuhn MD Physical Exam HEENT: normocephalic; atraumatic; +icterus CHEST: CTA CARDIAC: RRR + murmur ABDOMEN: Soft, mildly distended, nontender; no hepatosplenomegaly; bowel sounds are present in all four quadrants. EXTREMITIES: No clubbing, cyanosis, or edema. SKIN: spider angiomas; no rash; + jaundice. BEAN SNIPPER: No focal deficits; alert and oriented times three. (Blanka Reynoso DROSSER) Assessment and Plan Plan ASSESSMENT - abdominal pain, swelling - improved. pt diagnosed with PNA. AFP 2.1 has previously needed paracentesis. CT 08-07-16 --> 1. Marked splenomegaly. 2. Subtle nodularity of the contour of the liver suggesting cirrhosis. 3. Diffuse thickening involving the wall of the colon suggesting edema and/or colitis. Clinical correlation is recommended. 4. Ascites within the abdomen and pelvis. 5. Subtle nodular density within the left lobe of the liver measuring 2 cm which is indeterminate. 6. Recanalization of the umbilical vein indicating portal hypertension. Varices are noted throughout the anterior peritoneum also Pt on diuretics. d/w primary, oncology, pt to receive vit k, FFP and then rck INR and do paracentesis when INR < 1.5 - elevated LFTs, jaundice - hx cirrhosis, likely 2/2 ETOH. US 07-02-16--> liver enlarged to 20cm suspected hepatocellular dz, splenomegaly 18.6cm, no free fluid. Prev liver w/u neg for hep, autoimmune dz. MELD mckinney 18, UNOS 23. MRabd 08-08-16 --> 18 mm lesion in the medial segment of the left hepatic lobe has MRI features most typical of a regenerating nodule. Early hepatocellular carcinoma considered less likely but please correlate with alpha-fetoprotein levels. A followup MRI of the abdomen with and without contrast is recommended in 4-6 months. 2. A few scattered hepatic cysts are noted. 3. There is cirrhosis and evidence of portal hypertension including splenomegaly, portosystemic collaterals and small to moderate ascites. Patent portal vein. Consider liver transplant. - coagulopathy - INR 1.8. vitamin K, FFP PLAN - KELSY - GI f/u as OP to pursue liver transplant - repeat MRI abd in 3-4 months - continue pentoxifylline - continue diuretics - continue lactulose - low sodium diet - monitor labs - supportive care This pt seen by myself and Dr Packer and this note is written on his behalf ( Blanka Reynoso) Physician Comments ETOH liver cirrhosis, monitor labs. Outpt. referral to tertiary center for liver transplant evaluation. (Laurie Packer MD) Blanka Reynoso Aug 09, 2016 09:48 Laurie Packer MD Aug 09, 2016 13:17
[2016-08-09] MEDS: MULTIVITAMINS/MINERALS THERAPEUTIC TAB PO SCH (09:50)
[2016-08-09] MEDS: SODIUM CHLORIDE 0.9% FLUSH 10 ML FLUSH IV FLUSH SCH ×2 (09:50→19:45)
[2016-08-09] MEDS: FUROSEMIDE 40 MG TAB PO SCH ×2 (09:50→19:45)
[2016-08-09] MEDS: FAMOTIDINE 20 MG TAB PO SCH ×2 (09:50→19:45)
[2016-08-09] MEDS: FOLIC ACID 1 MG TAB PO SCH (09:50)
[2016-08-09] MEDS: THIAMINE HCL 100 MG TAB PO SCH (09:50)
[2016-08-09] MEDS: LACTULOSE SYRUP 20 GM/30 ML CUP PO SCH (09:51)
[2016-08-09] MEDS: PHYTONADIONE 5 MG TAB PO SCH (09:51)
[2016-08-09] MEDS: SPIRONOLACTONE 100 MG TAB PO SCH (09:51)
[2016-08-09 12:00] VITALS: BP 122/69; PULSE 108; RESP 20; TEMP 98.5; O2SAT 98
--- NOTE | 2016-08-09 12:47 | RADRPT ---
EXAM DATE/TIME: 08/08/2016 17:04 [facility] COMPARISON: US GUIDED ABD PARACENTESIS, July 17, 2016, 14:37. INDICATIONS : Ascites. MEDICAL HISTORY : Diabetes. PTSD. Liver failure. Kidney stones. ETOH abuse. SURGICAL HISTORY : Cholecystectomy section. Laparoscopy. ENCOUNTER: Subsequent ACUITY: 3 weeks PAIN SCORE: 0/10 LOCATION: Left lower quadrant FLUID: Total volume of 3000 cc of cloudy, red fluid was removed. Fluid was discarded. Paracentesis was therapeutic only. Post procedure scanning reveals no hematoma or other complication. TECHNIQUE: 1. Ultrasound guidance for abdominal paracentesis. 2. Paracentesis. The risks, benefits, and alternatives to ultrasound guided paracentesis were explained to the patient in detail including the risk of bleeding and infection. Written and verbal informed consent was obt ained. With the patient on the ultrasound table, ultrasound imaging was used to select the most appropriate approach for paracentesis. Overlying skin was prepped and draped in the usual sterile fashion and wi th a local anesthetic, a dermatotomy was made with an 11 blade scalpel. A 6 Chinese [id number]-A-[id number] ca theter was introduced into the peritoneal cavity and fluid was collected. The patient tolerated the procedure well and left the ultrasound suite in stable condition. CONCLUSION: Uncomplicated ultrasound guided paracentesis. Manjeet Roberts MD on August 09, 2016 at 12:45 Board Certified Radiologist. This report was verified electronically.
--- NOTE | 2016-08-09 15:04 | PD.ONC.PN ---
Subjective Subjective Remarks Afebrile overnight. Patient seen at 9AM. Feels better after paracentesis yesterday. No bleeding. "When can I go home." Objective Data Date Time Temp Pulse Resp B/P Pulse Ox O2 Delivery O2 Flow Rate FiO2 08/09/16 12:00 98.5 108 20 122/69 98 08/09/16 08:00 97.5 103 20 116/56 96 08/09/16 04:00 97.6 98 18 104/53 97 08/09/16 00:00 98.0 93 18 114/56 98 08/08/16 20:00 98.3 99 18 117/58 96 08/08/16 18:54 98.0 102 16 113/61 95 08/08/16 18:40 98.0 102 16 117/61 96 08/08/16 17:30 98.0 95 18 117/68 99 08/08/16 16:00 98.0 101 16 118/64 97 08/08/16 15:14 97.8 98 17 113/61 97 08/09/16 08/09/16 08/09/16 07:00 15:00 23:00 Intake Total 490 ml 600 ml Output Total 900 ml 400 ml Balance -410 ml 200 ml Result Diagram: 08/09/16 0533 08/09/16 0533 Laboratory Results Laboratory Tests Test 08/09/16 05:33 White Blood Count 5.4 TH/MM3 Red Blood Count 2.33 MIL/MM3 Hemoglobin 8.1 GM/DL Hematocrit 24.1 % Mean Corpuscular Volume 103.5 FL Mean Corpuscular Hemoglobin 34.7 PG Mean Corpuscular Hemoglobin 33.5 % Concent Red Cell Distribution Width 21.5 % Platelet Count 50 TH/MM3 Mean Platelet Volume 8.3 FL Neutrophils (%) (Auto) 69.6 % Lymphocytes (%) (Auto) 20.3 % Monocytes (%) (Auto) 7.5 % Eosinophils (%) (Auto) 2.1 % Basophils (%) (Auto) 0.5 % Neutrophils # (Auto) 3.7 TH/MM3 Lymphocytes # (Auto) 1.1 TH/MM3 Monocytes # (Auto) 0.4 TH/MM3 Eosinophils # (Auto) 0.1 TH/MM3 Basophils # (Auto) 0.0 TH/MM3 CBC Comment AUTO DIFF Differential Comment AUTO DIFF CONFIRMED Prothrombin Time 20.4 SEC Prothromb Time International 1.8 RATIO Ratio Sodium Level 133 MEQ/L Potassium Level 3.1 MEQ/L Chloride Level 95 MEQ/L Carbon Dioxide Level 27.0 MEQ/L Anion Gap 11 MEQ/L Blood Urea Nitrogen 5 MG/DL Creatinine 0.66 MG/DL Estimat Glomerular Filtration 100 ML/MIN Rate Random Glucose 88 MG/DL Calcium Level 8.1 MG/DL Total Bilirubin 10.8 MG/DL Direct Bilirubin 6.8 MG/DL Aspartate Amino Transf 78 U/L (AST/SGOT) Alanine Aminotransferase 27 U/L (ALT/SGPT) Alkaline Phosphatase 124 U/L Ammonia 77 MCMOL/L Total Protein 6.1 GM/DL Albumin 2.4 GM/DL Culture Results Microbiology Date/Time Procedure Status Source Growth 08/06/16 19:40 Aerobic Blood Culture - Preliminary Resulted Blood Peripheral NO GROWTH IN 3 DAYS 08/06/16 19:40 Anaerobic Blood Culture - Preliminary Resulted Blood Peripheral NO GROWTH IN 3 DAYS 08/06/16 19:45 Aerobic Blood Culture - Preliminary Resulted Blood Peripheral NO GROWTH IN 3 DAYS 08/06/16 19:45 Anaerobic Blood Culture - Preliminary Resulted Blood Peripheral NO GROWTH IN 3 DAYS Administered Medications Medications (Trade) Dose Ordered Sig/Ric Route PRN Reason Start Time Stop Time Status Last Admin Dose Admin Sodium Chloride (NS Flush) 2 ml BID IV FLUSH 08/06/16 21:00 08/09/16 09:50 Ondansetron HCl (Zofran Inj) 4 mg Q6H PRN IVP NAUSEA OR VOMITING 08/06/16 20:15 08/09/16 05:41 Senna/Docusate Sodium 1 tab 1 tab BID PO 08/06/16 21:00 08/07/16 09:46 Ceftriaxone Sodium 1000 mg/ Sodium Chloride 100 ml @ 200 mls/hr Q24H IV 08/07/16 20:00 08/08/16 20:31 Azithromycin/ Sodium Chloride (Zithromax Inj/ NS 250 ml Inj) 250 ml @ 250 mls/hr Q24H IV 08/07/16 21:00 08/08/16 20:27 Folic Acid (Folate) 1 mg DAILY PO 08/07/16 09:00 08/12/16 08:59 08/09/16 09:50 Thiamine HCl (Vitamin B1) 100 mg DAILY PO 08/06/16 20:30 08/09/16 09:50 Multivitamins/ Minerals Therapeutic (Theragran M Tab) 1 tab DAILY PO 08/07/16 09:00 08/12/16 08:59 08/09/16 09:50 Furosemide (Lasix) 40 mg BID PO 08/06/16 21:00 08/09/16 09:50 Lactulose (Lactulose Liq) 30 ml DAILY PO 08/07/16 09:00 08/09/16 09:51 Pentoxifylline (TRENtal SR) 400 mg Q8HR PO 08/06/16 22:00 08/09/16 14:07 Spironolactone (Aldactone) 100 mg DAILY PO 08/07/16 09:00 08/09/16 09:51 Famotidine (Pepcid) 20 mg BID PO 08/06/16 21:00 08/09/16 09:50 Hydromorphone HCl (Dilaudid Pf Inj) 0.5 mg Q4H PRN IV PUSH PAIN SCALE 6 TO 10 08/06/16 23:30 08/09/16 14:13 Phytonadione (Mephyton) 10 mg DAILY PO 08/08/16 00:15 08/12/16 00:14 08/09/16 09:51 Objective Remarks GENERAL: Young woman sitting up in bed in [facility]. SKIN: Warm and dry. HEAD: Normocephalic. EYES: No injection or drainage. NECK: Supple, trachea midline. CARDIOVASCULAR: Regular rate and rhythm RESPIRATORY: Breath sounds equal bilaterally. No accessory muscle use. GASTROINTESTINAL: Abdomen soft, nontender. EXTREMITIES: No cyanosis NEUROLOGICAL: awake and alert, normal speech Assessment/Plan Problem List: (1) Coagulopathy Status: Acute Plan: 08/09: s/p paracentesis yesterday. INR improved to 1.8. monitor CBC, INR. would transfuse only for bleeding or prior to procedure. --due to liver disease --vitamin K 10mg SQ given 08/07 without improvement in INR (2) Thrombocytopenia Status: Acute Plan: --due to liver disease --around 50K-70K seems to be her baseline. Assessment 41y/o with liver cirrhosis. Hematology consulted for evaluation of coagulopathy. Admitted with abdominal pain-->suspected to have subacute bacterial peritonitis and has been on the antibiotics. h/o Diabetes mellitus Kidney stones Alcoholism Liver cirrhosis Appendectomy Cholecystectomy Upper endoscopy C-sections History of bile duct stent placement. Attending Statement Less abdominal discomfort and distention Status post paracentesis She feels much better No excessive bleeding noted after the paracentesis coagulopathy is due to liver disease AFP is normal. MR Jayme of liver reviewed. She has cirrhosis of Liver With the regenerating nodule Okay to Discharge from my standpoint Signing off Available PRN The exam, history, and the medical decision-making described in the above note were completed with the assistance of the mid-level provider. I reviewed and agree with the findings presented. I attest that I had a [id number] encounter with the patient on the same day, and personally performed and documented my assessment and findings in the medical record. Yaima Francois Aug 09, 2016 15:03 Ciro Bustamante MD Aug 10, 2016 06:42
[2016-08-09 16:00] VITALS: BP 117/58; PULSE 97; RESP 19; TEMP 97.6; O2SAT 98
[2016-08-09] MEDS: predniSONE 20 MG TAB PO SCH (16:29)
[2016-08-09] MEDS: AZITHROMYCIN INJ 500 MG in SODIUM CHLOR 0.9% 250 ML INJ 250 ML IV SCH (19:44)
[2016-08-09] MEDS: cefTRIAXone INJ 1,000 MG in SODIUM CHLORIDE 0.9% INJ 100 ML IV SCH (19:44)
[2016-08-09 20:00] VITALS: BP 100/52; PULSE 70; RESP 17; TEMP 97.8; O2SAT 97
[2016-08-10 00:59] VITALS: BP 117/67; PULSE 78; RESP 18; TEMP 97.7; O2SAT 96
[2016-08-10] MEDS: HYDROmorphone HCL PF 1 MG/ML VIAL IV PUSH PRN ×2 (02:25→06:50)
[2016-08-10 04:31] VITALS: BP 114/55; PULSE 100; RESP 17; TEMP 97.3; O2SAT 97
[2016-08-10] MEDS: PENTOXIFYLLINE 400 MG CONTROLLED RELEASE TAB PO SCH (05:23)
[2016-08-10 06:31] LABS: PROTHROMBIN TIME - PATIENT 22.5 SEC (9.8-11.6)
[2016-08-10 06:51] LABS: ALKALINE PHOSPHATASE 135 U/L (45-117); ALT (GPT) 29 U/L (10-53); ANION GAP 9 MEQ/L (5-15); AST (GOT) 80 U/L (15-37); BICARBONATE 27.9 MEQ/L (21.0-32.0); BLOOD UREA NITROGEN 9 MG/DL (7-18); CHLORIDE 98 MEQ/L (98-107); GLOMERULAR FILTRATION RATE 90 ML/MIN (>89); SODIUM (NA) 135 MEQ/L (136-145); TOTAL BILIRUBIN ADULT 10.1 MG/DL (0.2-1.0)
--- NOTE | 2016-08-10 07:57 | HHI.PR ---
Subjective Remarks resting comfortably with no distress. abdominal pain is better. no fever. no new complaints and overall looks much better today. Objective Vitals Vital Signs Date Time Temp Pulse Resp B/P Pulse Ox O2 Delivery O2 Flow Rate FiO2 08/10/16 04:31 97.3 100 17 114/55 97 08/10/16 00:59 97.7 78 18 117/67 96 08/09/16 20:00 97.8 70 17 100/52 97 08/09/16 16:00 97.6 97 19 117/58 98 08/09/16 12:00 98.5 108 20 122/69 98 08/09/16 08:00 97.5 103 20 116/56 96 I/O 08/09/16 08/09/16 08/09/16 08/10/16 08/10/16 08/10/16 07:00 15:00 23:00 07:00 15:00 23:00 Intake Total 490 ml 600 ml 480 ml 480 ml Output Total 900 ml 400 ml 2000 ml Balance -410 ml 200 ml -1520 ml 480 ml Intake Oral 240 ml 600 ml 480 ml 480 ml IV Total 250 ml Output Urine Total 900 ml 400 ml 2000 ml # Voids 3 # Bowel Movements 0 0 2 2 Result Diagram: 08/09/16 0533 08/10/16 0559 Imaging Last Impressions Cyst Biopsy Asp-Paracentesis US 08/08/16 0000 Signed Impressions: Service Date/Time: Monday, August 08, 2016 17:04 - CONCLUSION: Uncomplicated ultrasound guided paracentesis. Manjeet Roberts MD Abdomen MRI 08/08/16 0000 Signed Impressions: Service Date/Time: Monday, August 08, 2016 21:36 - CONCLUSION: 1. 18 mm lesion in the medial segment of the left hepatic lobe has MRI features most typical of a regenerating nodule. Early hepatocellular carcinoma considered less likely but please correlate with alpha-fetoprotein levels. A followup MRI of the abdomen with and without contrast is recommended in 4-6 months. 2. A few scattered hepatic cysts are noted. 3. There is cirrhosis and evidence of portal hypertension including splenomegaly, portosystemic collaterals and small to moderate ascites. Patent portal vein. Micohacano Kuhn MD Abdomen/Pelvis CT 08/07/16 0000 Signed Impressions: Service Date/Time: Sunday, August 07, 2016 16:05 - CONCLUSION: 1. Marked splenomegaly. 2. Subtle nodularity of the contour of the liver suggesting cirrhosis. 3. Diffuse thickening involving the wall of the colon suggesting edema and/or colitis. Clinical correlation is recommended. 4. Ascites within the abdomen and pelvis. 5. Subtle nodular density within the left lobe of the liver measuring 2 cm which is indeterminate. Outpatient MRI of the abdomen with contrast may be helpful for further evaluation of this finding if clinically indicated. 6. Recanalization of the umbilical vein indicating portal hypertension. Varices are noted throughout the anterior peritoneum also. Maikel Pompa MD Chest X-Ray 08/06/161816 Signed Impressions: Service Date/Time: Saturday, August 06, 2016 18:43 - CONCLUSION: Mild right base consolidation. Michoacano Kuhn MD Objective Remarks GENERAL: This is a well-nourished, well-developed patient, in no apparent distress. CARDIOVASCULAR: Regular rate and regular rhythm without murmurs, gallops, or rubs. RESPIRATORY: diminished air entry in bases. GASTROINTESTINAL: Abdomen soft, non-tender, nondistended. Normal, active bowel sounds MUSCULOSKELETAL: Extremities without clubbing, cyanosis, or edema. NEURO: Alert & Oriented x4 to person, place, time, situation. Moves all ext x4 Procedures paracentesis Medications and IVs Current Medications Ondansetron HCl (Zofran Inj) 4 mg ONCE ONCE IVP Last administered on 18:39; Start 08/06/16 at 18:30; Stop 08/06/16 at 18:31; Status DC Sodium Chloride (NS Flush) 2 ml UNSCH PRN IV FLUSH FLUSH AFTER USING IV ACCESS ; Start 08/06/16 at 18:30; Stop 08/06/16 at 20:11; Status DC Furosemide 40 mg 40 mg ONCE ONCE IV PUSH Last administered on 08/06/16 18:39 ; Start 08/06/16 at 18:30; Stop 08/06/16 at 18:31; Status DC Ceftriaxone Sodium 1000 mg/ Sodium Chloride 100 ml @ 200 mls/hr ONCE ONCE IV Last administered on 08/06/16 19:56; Start 08/06/16 at 19:15; Stop 08/06/16 at 19:44; Status DC Azithromycin/ Sodium Chloride (Zithromax Inj/ NS 250 ml Inj) 250 ml @ 250 mls/ hr ONCE ONCE IV Last administered on 08/06/16 19:57; Start 08/06/16 at 19:15 ; Stop 08/06/16 at 20:15; Status DC Morphine Sulfate 2 mg 2 mg ONCE ONCE IV PUSH Last administered on 08/06/16 19 :57; Start 08/06/16 at 19:15; Stop 08/06/16 at 19:16; Status DC Sodium Chloride (NS 1000 ml Inj) 1,000 ml @ 50 mls/hr Q20H IV Last administered on 08/07/16 15:56; Start 08/06/16 at 20:04; Stop 08/07/16 at 20:03 ; Status DC Sodium Chloride (NS Flush) 2 ml UNSCH PRN IV FLUSH FLUSH AFTER USING IV ACCESS ; Start 08/06/16 at 20:15 Sodium Chloride (NS Flush) 2 ml BID IV FLUSH Last administered on 08/09/16 19: 45; Start 08/06/16 at 21:00 Ondansetron HCl (Zofran Inj) 4 mg Q6H PRN IVP NAUSEA OR VOMITING Last administered on 08/09/16 21:28; Start 08/06/16 at 20:15 Prochlorperazine (Compazine Supp) 25 mg Q12H PRN RECTAL NAUSEA OR VOMITING; Start 08/06/16 at 20:15 Senna/Docusate Sodium (Madeline-Colace) 1 tab BID PO Last administered on 09:46; Start 08/06/16 at 21:00 Magnesium Hydroxide (Milk Of Magnesia Liq) 30 ml Q12H PRN PO MILD - MODERATE CONSTIPATION; Start 08/06/16 at 20:15 Sennosides (Senokot) 17.2 mg Q12H PRN PO MODERATE - SEVERE CONSTIPATION; Start 08/06/16 at 20:15 Bisacodyl (Dulcolax Supp) 10 mg DAILY PRN RECTAL SEVERE CONSITIPATION; Start at 20:15 Lactulose 30 ml 30 ml DAILY PRN PO SEVERE CONSITIPATION; Start 08/06/16 at 20: 15 Ceftriaxone Sodium 1000 mg/ Sodium Chloride 100 ml @ 200 mls/hr Q24H IV Last administered on 08/09/16 19:44; Start 08/07/16 at 20:00 Azithromycin/ Sodium Chloride (Zithromax Inj/ NS 250 ml Inj) 250 ml @ 250 mls/ hr Q24H IV Last administered on 08/09/16 19:44; Start 08/07/16 at 21:00 Phytonadione (Mephyton) 2.5 mg ONCE ONCE PO Last administered on 08/06/16 22: 42; Start 08/06/16 at 20:15; Stop 08/06/16 at 20:20; Status DC Folic Acid (Folate) 1 mg DAILY PO Last administered on 08/09/16 09:50; Start 08/07/16 at 09:00; Stop 08/12/16 at 08:59 Thiamine HCl (Vitamin B1) 100 mg DAILY PO Last administered on 08/09/16 09:50 ; Start 08/06/16 at 20:30 Multivitamins/ Minerals Therapeutic (Theragran M Tab) 1 tab DAILY PO Last administered on 08/09/16 09:50; Start 08/07/16 at 09:00; Stop 08/12/16 at 08:59 Flumazenil (Romazicon Inj) 0.2 mg Q1M PRN IV PUSH SEE LABEL COMMENTS; Start 01/12 at 20:30 Lorazepam (Ativan) 1 mg Q4H PRN PO CIWA 8 - 10; Start 08/06/16 at 20:30 Lorazepam (Ativan Inj) 1 mg Q4H PRN IV PUSH CIWA 8 - 10; Start 08/06/16 at 20: 30 Lorazepam (Ativan) 2 mg Q2H PRN PO CIWA 11-14; Start 08/06/16 at 20:30 Lorazepam (Ativan Inj) 2 mg Q2H PRN IV PUSH CIWA 11-14; Start 08/06/16 at 20:30 Lorazepam (Ativan Inj) 2 mg Q1H PRN IV PUSH CIWA 15-20; Start 08/06/16 at 20:30 Lorazepam (Ativan Inj) 2 mg Q15M PRN IV PUSH CIWA > 20; Start 08/06/16 at 20:30 Furosemide (Lasix) 40 mg BID PO Last administered on 08/09/16 19:45; Start 01/12 at 21:00 Lactulose (Lactulose Liq) 30 ml DAILY PO Last administered on 08/09/16 09:51; Start 08/07/16 at 09:00 Pentoxifylline (TRENtal SR) 400 mg Q8HR PO Last administered on 08/10/16 05:23 ; Start 08/06/16 at 22:00 Spironolactone (Aldactone) 100 mg DAILY PO Last administered on 08/09/16 09:51 ; Start 08/07/16 at 09:00 Famotidine (Pepcid) 20 mg BID PO Last administered on 08/09/16 19:45; Start at 21:00 Miscellaneous (Pill Splitter) 1 ea UNSCH PRN OTHER SEE LABEL COMMENTS Last administered on 08/09/16 16:29; Start 08/06/16 at 22:30 Hydromorphone HCl (Dilaudid Pf Inj) 0.5 mg Q4H PRN IV PUSH PAIN SCALE 6 TO 10 Last administered on 08/10/16 06:50; Start 08/06/16 at 23:30 Diatrizoate Meglum/ Diatrizoate Sod ( Gastroview Liq) 18 ml ONCE ONCE PO Last administered on 08/07/16 12:55; Start 08/07/16 at 12:45; Stop 08/07/16 at 12:46; Status DC Iohexol (Omnipaque 350 Inj) 92 ml STK-MED ONCE IV Last administered on 16:07; Start 08/07/16 at 16:07; Stop 08/07/16 at 16:08; Status DC Phytonadione (Mephyton) 10 mg DAILY PO Last administered on 08/09/16 09:51; Start 08/08/16 at 00:15; Stop 08/12/16 at 00:14 Potassium Chloride 40 meq 40 meq ONCE ONCE PO Last administered on 08/08/16 06:28; Start 08/08/16 at 06:15; Stop 08/08/16 at 06:23; Status DC Potassium Chloride 100 ml @ 50 mls/hr Q2H IV Last administered on 08/08/16 08 :55; Start 08/08/16 at 06:15; Stop 08/08/16 at 10:14; Status DC Sodium Chloride 250 ml @ 15 mls/hr ONCE ONCE IV Last administered on 08:59; Start 08/08/16 at 08:15; Stop 08/09/16 at 00:54; Status DC Potassium Phosphate/Sodium Chloride (Potassium Phosphate Inj/NS 250 ml Inj) 260 ml @ 43.333 mls/ hr ONCE ONCE IV ; Start 08/08/16 at 10:00; Stop 08/08/16 at 10:30; Status DC Potassium Chloride (KCl) 30 meq ONCE ONCE PO Last administered on 08/08/16 10 :52; Start 08/08/16 at 10:30; Stop 08/08/16 at 10:32; Status DC Gadodiamide (Omniscan Pf Inj) 14 ml STK-MED ONCE IV Last administered on 22:12; Start 08/08/16 at 22:12; Stop 08/08/16 at 22:13; Status DC Potassium Chloride (KCl) 30 meq ONCE ONCE PO Last administered on 08/09/16 09 :50; Start 08/09/16 at 08:00; Stop 08/09/16 at 08:09; Status DC Potassium Chloride (KCl) 30 meq ONCE ONCE PO Last administered on 08/09/16 14 :07; Start 08/09/16 at 14:00; Stop 08/09/16 at 14:01; Status DC Prednisone (Deltasone) 30 mg DAILY PO Last administered on 08/09/16 16:29; Start 08/09/16 at 15:00 A/P Assessment and Plan A/P Community-acquired pneumonia switch to po antibiotics. Acute on chronic liver disease -Gastroenterology consultation appreciated -Currently on spironolactone, Lasix,Pentoxifyllin -Previously patient Liver workup negative for autoimmune disease -started on prednisone-per GI -Patient may need evaluation from liver transplant History of ascites -s/p paracentesis -Continue treatment as in above -GI follow-up appreciated. Hyperbilirubinemia Likely secondary to liver disease as patient with previous cholecystectomy. On previous admissions, CBD stone or choledocholithiasis was ruled out GI consultation appreciated and continue to monitor level Hyperammonemia Secondary to liver disease Continue lactulose Thrombocytopenia Secondary to liver disease Monitor platelet count Coagulopathy Secondary to liver failure s/p FFP transfusion hematology follow-up appreciated and cleared for discharge. Macrocytic anemia due to chronic disease H&H at baseline Hypokalemia Replaced. DVT prophylaxis: Bilateral SCDs GI prophylaxis: PPI Discharge Planning dc home later today if tolerates the diet . see med list. f/u with pcp and GI. d/w the patient. d/w . time spent 31 min. Jorge Phelps MD Aug 10, 2016 07:57
[2016-08-10 08:00] VITALS: BP 111/61; PULSE 102; RESP 17; TEMP 97.2; O2SAT 97
[2016-08-10] MEDS ORDERED: ZITH250T PO (08:00)
[2016-08-10] MEDS ORDERED: PRED20 PO (08:00)
[2016-08-10] MEDS ORDERED: CEFT250S PO (08:00)
--- NOTE | 2016-08-10 08:00 | HHI.DCPOC ---
Discharge Care Plan Diagnosis: (1) Liver failure (2) Community acquired bacterial pneumonia Your Health Problems Are: Shortness of Breath Additional Problems abdominal pain. Goals to Promote Your Health * To prevent worsening of your condition and complications * To maintain your health at the optimal level Directions to Meet Your Goals Take your medications as prescribed Follow your dietary instruction Follow activity as directed Keep your appointments as scheduled Take your immunizations and boosters as scheduled If your symptoms worsen call your PCP, if no PCP go to Urgent Care Center or Emergency Room Smoking is Dangerous to Your Health. Avoid second hand smoke Call the 24-hour hour crisis hotline for domestic abuse at Jorge Phelps MD Aug 10, 2016 08:00
--- NOTE | 2016-08-10 08:01 | HHI.DS ---
Discharge Summary Admission Date Aug 06, 2016 at 20:00 Discharge Date: Aug 10, 2016 Admitting Diagnosis pneumonia, ascites r/o SBP, jaundice (1) Community acquired bacterial pneumonia ICD Code: J15.9 Diagnosis: Principal (2) Liver failure ICD Code: K72.90 Diagnosis: Principal (3) Thrombocytopenia ICD Code: D69.6 Diagnosis: Secondary (4) Macrocytic anemia ICD Code: D53.9 Diagnosis: Secondary (5) Hyperbilirubinemia ICD Code: E80.6 Diagnosis: Secondary (6) Coagulopathy ICD Code: D68.9 Diagnosis: Secondary Procedures paracentesis Brief History - From Admission The patient is a 41 yo F with PMH of liver failure, cirrhosis 2/ EtOH use, diabetes who came to the ED complaining of worsening abdominal pain over the past week and right-sided chest pain that began today. Patient's pain is similar to previous hospitalization when he had a drain fluid off her abdomen. Chest pain is right-sided sharp stabbing and radiates to her shoulder. Patient taking her medication as prescribed however when her got home yesterday states noted she seemed jaundiced again. Patient states she had not noted herself turning yellow or that her eyes turning yellow. Says jaundice improving. Denies any nausea, vomiting, fevers, change in bladder. Patient reports she's been having mustard-colored loose stools and associated shortness of breath. Patient states she did follow up with her primary after being release from the hospital and was supposed to have additional test that she has not been able to get done yet. Patient reports she's been taking her medication as prescribed and she is following with PCP and consultants. Patient reports chills, no fevers. She also reports nonproductive cough. CBC/BMP: 08/09/16 0533 08/10/16 0559 Significant Findings Laboratory Tests Test 08/08/16 08/09/16 08/10/16 04:39 05:33 05:59 Red Blood Count 2.31 MIL/MM3 2.33 MIL/MM3 (4.00-5.30) (4.00-5.30) Hemoglobin 7.9 GM/DL 8.1 GM/DL (11.6-15.3) (11.6-15.3) Hematocrit 23.7 % 24.1 % (35.0-46.0) (35.0-46.0) Mean Corpuscular Volume 102.6 FL 103.5 FL (80.0-100.0) (80.0-100.0) Mean Corpuscular Hemoglobin 34.1 PG 34.7 PG (27.0-34.0) (27.0-34.0) Red Cell Distribution Width 21.4 % 21.5 % (11.6-17.2) (11.6-17.2) Platelet Count 45 TH/MM3 50 TH/MM3 (150-450) (150-450) Neutrophils (%) (Auto) 77.1 % (16.0-70.0) Lymphocytes # (Auto) 0.9 TH/MM3 (1.0-4.8) Prothrombin Time 24.4 SEC 20.4 SEC 22.5 SEC (9.8-11.6) (9.8-11.6) (9.8-11.6) Potassium Level 2.8 MEQ/L 3.1 MEQ/L (3.5-5.1) (3.5-5.1) Blood Urea Nitrogen 6 MG/DL (7-18) 5 MG/DL (7-18) Calcium Level 7.7 MG/DL 8.1 MG/DL (8.5-10.1) (8.5-10.1) Total Bilirubin 12.5 MG/DL 10.8 MG/DL 10.1 MG/DL (0.2-1.0) (0.2-1.0) (0.2-1.0) Aspartate Amino Transf 80 U/L (15-37) 78 U/L (15-37) 80 U/L (15-37) (AST/SGOT) Alkaline Phosphatase 131 U/L 124 U/L 135 U/L (45-117) (45-117) (45-117) Ammonia 60 MCMOL/L 77 MCMOL/L 75 MCMOL/L (11-32) (11-32) (11-32) Total Protein 6.0 GM/DL 6.1 GM/DL (6.4-8.2) (6.4-8.2) Albumin 2.3 GM/DL 2.4 GM/DL 2.5 GM/DL (3.4-5.0) (3.4-5.0) (3.4-5.0) Sodium Level 133 MEQ/L 135 MEQ/L (136-145) (136-145) Chloride Level 95 MEQ/L (98-107) Direct Bilirubin 6.8 MG/DL (0.0-0.2) Random Glucose 124 MG/DL (74-106) Imaging Last Impressions Cyst Biopsy Asp-Paracentesis US 08/08/16 0000 Signed Impressions: Service Date/Time: Monday, August 08, 2016 17:04 - CONCLUSION: Uncomplicated ultrasound guided paracentesis. Manjeet Roberts MD Abdomen MRI 08/08/16 0000 Signed Impressions: Service Date/Time: Monday, August 08, 2016 21:36 - CONCLUSION: 1. 18 mm lesion in the medial segment of the left hepatic lobe has MRI features most typical of a regenerating nodule. Early hepatocellular carcinoma considered less likely but please correlate with alpha-fetoprotein levels. A followup MRI of the abdomen with and without contrast is recommended in 4-6 months. 2. A few scattered hepatic cysts are noted. 3. There is cirrhosis and evidence of portal hypertension including splenomegaly, portosystemic collaterals and small to moderate ascites. Patent portal vein. Michoacano Kuhn MD Abdomen/Pelvis CT 08/07/16 0000 Signed Impressions: Service Date/Time: Sunday, August 07, 2016 16:05 - CONCLUSION: 1. Marked splenomegaly. 2. Subtle nodularity of the contour of the liver suggesting cirrhosis. 3. Diffuse thickening involving the wall of the colon suggesting edema and/or colitis. Clinical correlation is recommended. 4. Ascites within the abdomen and pelvis. 5. Subtle nodular density within the left lobe of the liver measuring 2 cm which is indeterminate. Outpatient MRI of the abdomen with contrast may be helpful for further evaluation of this finding if clinically indicated. 6. Recanalization of the umbilical vein indicating portal hypertension. Varices are noted throughout the anterior peritoneum also. Maikel Pompa MD Chest X-Ray 08/06/167 Signed Impressions: Service Date/Time: Saturday, August 06, 2016 18:43 - CONCLUSION: Mild right base consolidation. Michoacano Kuhn MD PE at Discharge GENERAL: This is a well-nourished, well-developed patient, in no apparent distress. CARDIOVASCULAR: Regular rate and regular rhythm without murmurs, gallops, or rubs. RESPIRATORY: diminished air entry in bases. GASTROINTESTINAL: Abdomen soft, non-tender, nondistended. Normal, active bowel sounds MUSCULOSKELETAL: Extremities without clubbing, cyanosis, or edema. NEURO: Alert & Oriented x4 to person, place, time, situation. Moves all ext x4 Hospital Course Community-acquired pneumonia switch to po antibiotics. Acute on chronic liver disease -Gastroenterology consultation appreciated -Currently on spironolactone, Lasix,Pentoxifyllin -Previously patient Liver workup negative for autoimmune disease -started on prednisone-per GI -Patient may need evaluation from liver transplant History of ascites -s/p paracentesis -Continue treatment as in above -GI follow-up appreciated. Hyperbilirubinemia Likely secondary to liver disease as patient with previous cholecystectomy. On previous admissions, CBD stone or choledocholithiasis was ruled out GI consultation appreciated and continue to monitor level Hyperammonemia Secondary to liver disease Continue lactulose Thrombocytopenia Secondary to liver disease Monitor platelet count Coagulopathy Secondary to liver failure s/p FFP transfusion hematology follow-up appreciated and cleared for discharge. Macrocytic anemia due to chronic disease H&H at baseline Hypokalemia Replaced. DVT prophylaxis: Bilateral SCDs GI prophylaxis: PPI Pt Condition on Discharge: Fair Discharge Disposition: Discharge Home Discharge Time: > 30 minutes Discharge Instructions DIET: Follow Instructions for: Heart Healthy Diet, Low Sodium Diet Activities you can perform: Regular-No Restrictions Follow up Referrals: Gastroenterology PCP Follow-up New Medications: Cefuroxime Liq (Ceftin Liq) 250 Mg/5 Ml Susp 500 MG PO BID Infection Days 5 Ref 0 ML Prednisone (Prednisone) 20 Mg Tab 30 MG PO DAILY Inflammation Days 10 Ref 0 TAB Continued Medications: Folic Acid (Folic Acid) 1 Mg Tablet 1 MG PO DAILY Nutritional Supplement Furosemide (Lasix) 40 Mg Tab 40 MG PO BID #60 Ref 0 TAB Lactulose Liq (Lactulose Liq) 10 Gm/15 Ml Soln 30 ML PO DAILY laxative Days 14 Ref 1 ML Multiple Vitamins W/ Minerals (Multi For Her 50+) 1 Tab Tab 1 TAB PO DAILY Nutritional Supplement Pentoxifylline ER (Pentoxifylline ER) 400 Mg Tab 400 MG PO Q8HR hepatitis Days 28 Ref 0 TAB Ranitidine (Ranitidine) 150 Mg Tab 150 MG PO DAILY Heartburn Management #30 Ref 0 TAB Spironolactone (Spironolactone) 100 Mg Tab 100 MG PO DAILY #30 Ref 0 TAB Thiamine (Vitamin B-1) 250 Mg Tab 250 MG PO DAILY Nutritional Supplement Ref 0 TAB Jorge Phelps MD Aug 10, 2016 08:01 Jorge Phelps MD Aug 10, 2016 08:01
[2016-08-10] MEDS: LACTULOSE SYRUP 20 GM/30 ML CUP PO SCH (08:23)
[2016-08-10] MEDS: SODIUM CHLORIDE 0.9% FLUSH 10 ML FLUSH IV FLUSH SCH (08:23)
[2016-08-10] MEDS: FOLIC ACID 1 MG TAB PO SCH (08:23)
[2016-08-10] MEDS: predniSONE 20 MG TAB PO SCH (08:24)
[2016-08-10] MEDS: DOCUSATE SODIUM 50 MG/SENNA 8.6 MG TAB PO SCH (08:24)
[2016-08-10] MEDS: MULTIVITAMINS/MINERALS THERAPEUTIC TAB PO SCH (08:24)
[2016-08-10] MEDS: THIAMINE HCL 100 MG TAB PO SCH (08:24)
[2016-08-10] MEDS: PHYTONADIONE 5 MG TAB PO SCH (08:24)
[2016-08-10] MEDS: SPIRONOLACTONE 100 MG TAB PO SCH (08:24)
[2016-08-10] MEDS: FUROSEMIDE 40 MG TAB PO SCH (08:24)
[2016-08-10] MEDS: FAMOTIDINE 20 MG TAB PO SCH (08:24)
[2016-08-10] MEDS: ONDANSETRON HCL 4 MG/2 ML VIAL IVP PRN (08:29)
== END 2016-08-10 12:09 | disposition home or self-care (01) | DRG 432 ==
LOC: NEPC 17:46 → NEDA 20:00 → N07B 21:40
PROVIDERS: ADMIT Internal Medicine; ATTEND Internal Medicine
PROC: 30233K1 Transfusion of Nonautologous Frozen Plasma into Peripheral Vein, Percutaneous Approach (ICD-10-PCS; principal; 2016-08-08)
PROC: 0W9G3ZZ Drainage of Peritoneal Cavity, Percutaneous Approach (ICD-10-PCS; 2016-08-09)
DX: K70.40 Alcoholic hepatic failure without coma (principal); J18.9 Pneumonia, unspecified organism; K70.31 Alcoholic cirrhosis of liver with ascites; D68.4 Acquired coagulation factor deficiency; D69.6 Thrombocytopenia, unspecified; N39.0 Urinary tract infection, site not specified; D53.9 Nutritional anemia, unspecified; E11.9 Type 2 diabetes mellitus without complications; E87.6 Hypokalemia; E80.6 Other disorders of bilirubin metabolism; D63.8 Anemia in other chronic diseases classified elsewhere
CPT/HCPCS: 36430; 49083; 71010; 74177; 74183; 80053; 81001; 82105; 82140; 82247; 82248; 82550; 82552; 82607; 82728; 82746; 82948; 83540; 83550; 83605; 83690; 83735; 83880; 84100; 84484; 84702; 85025; 85610; 85730; 86927; 87040; 93005; 96374; 96375; A9579; C1729; J0456; J0696; J1170; J1940; J2270; J2405; J3480; J7030; J7050; J7512; P9017; Q9963; Q9967

== ENCOUNTER 2016-08-30 13:41 | Emergency (ER) | payer SELFPAY ==
[~2016-08-30] VITALS: Ht 160 cm; Wt 70.0 kg
[~2016-08-30 13:41] MED LIST changes: +CEFT250S PO; -FOLI1TAB4 PO; +FOLI1TAB6 PO; +FURO1TAB60 PO; -FURO40TA PO; -MULT1TAB84 PO; +MULTTAB25 PO; -NORC5TAB PO; +PRED20 PO; -VITA100T2 PO; +VITA250T25 PO; -[UNRECOGNIZED DRUG - CODE] PO
[2016-08-30 13:42] VITALS: BP 130/68; PULSE 108; RESP 20; TEMP 98.5; O2SAT 100
--- NOTE | 2016-08-30 14:27 | PD ---
Physical Exam Time Seen by Provider: 14:24 Narrative Pt presents to the ED requesting psych eval due to depression and alcohol abuse. States last alcoholic beverage was yesterday. States she does have SI but has made no attempts to harm herself. Denies HI. VSS. Awaiting bed placement. Data Data Last Documented VS Vital Signs Date Time Temp Pulse Resp B/P Pulse Ox O2 Delivery O2 Flow Rate FiO2 08/30/16 13:42 98.5 108 20 130/68 100 Room Air MDM Supervised Visit with EDA: Rona Godinez Aug 30, 2016 14:27
[2016-08-30 15:07] VITALS: BP 139/68; PULSE 112; RESP 16; O2SAT 99
--- NOTE | 2016-08-30 15:07 | PD ---
HPI Chief Complaint: Psychiatric Symptoms Time Seen by Provider: 14:55 Travel History International Travel<30 days: No Contact w/Intl Traveler<30days: No Traveled to known affect area: No History of Present Illness HPI 41-year-old female presents to emergency department requesting psychiatric evaluation. Patient reports history of depression and alcohol abuse, cirrhosis , ITP, hypertension. She is reporting suicidal ideation. Patient does not endorse a plan. She states "I want to ". Her is present. She reports her last alcohol beverage last night. She denies history of withdrawal when she obtains from alcohol. She reports a history of alcohol induced liver cirrhosis. She has no medical complaints. [facility] Past Medical History Narrative Medical Significant for alcohol-induced cirrhosis of liver, hypertension, ITP, depression Cardiovascular Problems: No Cirrhosis: Yes (LIVER FAILURE DUE TO ETOH AND TYLENOL) Diabetes: Yes Diminished Hearing: No Genitourinary: No Musculoskeletal: No Neurologic: No Reproductive: No Respiratory: No ?: Not : 3 Para: 3 Miscarriage: 0 : 0 Past Surgical History Abdominal Surgery: Yes (ex lap ) Section: Yes (x 3) Cholecystectomy: Yes Social History Alcohol Use: No Tobacco Use: No Substance Use: No Allergies-Medications (Allergen,Severity, Reaction): Coded Allergies: Morphine (Verified Adverse Reaction, Mild, Nausea/Vomiting, 08/30/16) Reported Meds & Prescriptions Reported Meds & Active Scripts Active Spironolactone 100 Mg Tab 100 Mg PO DAILY Ranitidine (Ranitidine HCl) 150 Mg Tab 150 Mg PO DAILY Pentoxifylline ER (Pentoxifylline) 400 Mg Tab 400 Mg PO Q8HR 28 Days Reported Lasix (Furosemide) 40 Mg Tab 40 Mg PO BID Vitamin B-1 (Thiamine HCl) 250 Mg Tab 250 Mg PO DAILY Multi For Her 50+ (Multiple Vitamins W/ Minerals) 1 Tab Tab 1 Tab PO DAILY Folic Acid 1 Mg Tablet 1 Mg PO DAILY Review of Systems Except as stated in HPI: all other systems reviewed are Neg General / Constitutional: No: Fever Eyes: No: Visual changes HENT: No: Headaches Cardiovascular: No: Chest Pain or Discomfort Respiratory: No: Shortness of Breath Gastrointestinal: No: Abdominal Pain Genitourinary: No: Dysuria Musculoskeletal: No: Pain Skin: No Rash Physical Exam Narrative GENERAL: Alert, female tearful. SKIN: Focused skin assessment warm/dry. Multiple areas of ecchymosis in various stages of healing. HEAD: Atraumatic. Normocephalic. EYES: Pupils equal and round. Mild scleral icterus. No injection or drainage. ENT: No nasal bleeding or discharge. Mucous membranes pink and moist. NECK: Trachea midline. No JVD. CARDIOVASCULAR: Regular rate and rhythm. No murmur appreciated. RESPIRATORY: No accessory muscle use. Clear to auscultation. Breath sounds equal bilaterally. GASTROINTESTINAL: Abdomen soft, non-tender, nondistended. Hepatic and splenic margins not palpable. MUSCULOSKELETAL: No obvious deformities. No clubbing. No cyanosis. No edema. NEUROLOGICAL: Awake and alert. No obvious cranial nerve deficits. Motor grossly within normal limits. Normal speech. PSYCHIATRIC: Flat affect, tearful avoiding eye contact. Data Data Last Documented VS Vital Signs Date Time Temp Pulse Resp B/P Pulse Ox O2 Delivery O2 Flow Rate FiO2 08/30/16 15:07 112 16 139/68 99 Room Air 08/30/16 13:42 98.5 Orders Complete Blood Count With Diff (08/30/16 15:08) Comprehensive Metabolic Panel (08/30/16 15:08) Psych Screen (08/30/16 15:08) Drug Screen, Random Urine (08/30/16 15:08) Alcohol (Ethanol) (08/30/16 15:08) Tylenol (Acetaminophen) (08/30/16 15:08) Potassium Chloride (Kcl) (08/30/16 16:30) Magnesium Oxide (Mag-Ox) (08/30/16 16:45) Labs Laboratory Tests Test 08/30/16 08/30/16 15:20 15:30 White Blood Count 5.0 TH/MM3 Red Blood Count 2.60 MIL/MM3 Hemoglobin 9.3 GM/DL Hematocrit 27.7 % Mean Corpuscular Volume 106.6 FL Mean Corpuscular Hemoglobin 35.7 PG Mean Corpuscular Hemoglobin 33.4 % Concent Red Cell Distribution Width 17.9 % Platelet Count 36 TH/MM3 Mean Platelet Volume 8.5 FL Neutrophils (%) (Auto) 64.2 % Lymphocytes (%) (Auto) 24.8 % Monocytes (%) (Auto) 9.7 % Eosinophils (%) (Auto) 0.8 % Basophils (%) (Auto) 0.5 % Neutrophils # (Auto) 3.2 TH/MM3 Lymphocytes # (Auto) 1.2 TH/MM3 Monocytes # (Auto) 0.5 TH/MM3 Eosinophils # (Auto) 0.0 TH/MM3 Basophils # (Auto) 0.0 TH/MM3 CBC Comment AUTO DIFF Differential Comment AUTO DIFF CONFIRMED Sodium Level 142 MEQ/L Potassium Level 2.8 MEQ/L Chloride Level 105 MEQ/L Carbon Dioxide Level 27.2 MEQ/L Anion Gap 10 MEQ/L Blood Urea Nitrogen 7 MG/DL Creatinine 0.83 MG/DL Estimat Glomerular Filtration 77 ML/MIN Rate Random Glucose 150 MG/DL Calcium Level 8.3 MG/DL Total Bilirubin 7.6 MG/DL Aspartate Amino Transf 141 U/L (AST/SGOT) Alanine Aminotransferase 45 U/L (ALT/SGPT) Alkaline Phosphatase 128 U/L Total Protein 7.3 GM/DL Albumin 2.8 GM/DL Acetaminophen Level LESS THAN 2.0 MCG/ML Ethyl Alcohol Level 248 MG/DL Urine Opiates Screen NEG Urine Barbiturates Screen NEG Urine Amphetamines Screen NEG Urine Benzodiazepines Screen NEG Urine Cocaine Screen NEG Urine Cannabinoids Screen NEG MDM Medical Decision Making Medical Screen Exam Complete: Yes Emergency Medical Condition: Yes Differential Diagnosis Alcohol abuse, suicidal ideation, depression, substance abuse induced mood disorder Narrative Course 41-year-old female presents to the emergency department requesting psychiatric evaluation for depression, suicidal ideation. Patient reports a history of alcohol abuse and liver cirrhosis, ITP, hypertension. She reports her last alcoholic drink was last night. Her is present. Patient will be evaluated once medically cleared have psychiatric evaluation. CBC: hgb 9.3, hct 27.7 CMP: K 2.8, glucose 150 Tox screen: Alcohol 238 Labs reviewed with attending doctor Arelis. She has continued elevated LFTs due to her cirrhosis, Thrombocytopenia due to her ITP, and anemia. LFTs and hemoglobin are improved from last visit. Patients Potassium replaced. She has no active bleeding. She has follow up with GI regarding her Cirrhosis. Discussed all diagnostic findings the patient. She remained stable. She is medically cleared for psychiatric evaluation. Diagnosis Primary Impression: Suicidal ideation Additional Impressions: Thrombocytopenia Cirrhosis of liver Qualified Code: K74.60 - Cirrhosis of liver without ascites, unspecified hepatic cirrhosis type Referrals: Abe Mcgovern MD Pig Machine Operator Rebeca Morrow Aug 30, 2016 15:07
[2016-08-30 15:58] LABS: AMPHETAMINE, URINE NEG (NEG); BARBITURATES, URINE NEG (NEG); COCAINE, URINE NEG (NEG)
[2016-08-30 16:02] LABS: AUTOMATED NEUTROPHIL # 3.2 TH/MM3 (1.8-7.7); BASOPHIL % 0.5 % (0.0-2.0); EOSINOPHIL % 0.8 % (0.0-4.0); HEMATOCRIT 27.7 % (35.0-46.0); LYMPH % 24.8 % (9.0-44.0); LYMPHOCYTE # 1.2 TH/MM3 (1.0-4.8); MEAN CELL VOLUME 106.6 FL (80.0-100.0); MEAN CORPUSCULAR HEMOGLOBIN 35.7 PG (27.0-34.0); MEAN CORPUSCULAR HGB CONC 33.4 % (32.0-36.0); MONO % 9.7 % (0.0-8.0); NEUT % 64.2 % (16.0-70.0); PLATELET COUNT 36 TH/MM3 (150-450); RED CELL DISTRIBUTION WIDTH 17.9 % (11.6-17.2)
[2016-08-30 16:05] LABS: HEMO FLAGS AUTO DIFF
[2016-08-30 16:13] LABS: ANION GAP 10 MEQ/L (5-15)
[2016-08-30 16:16] LABS: ALKALINE PHOSPHATASE 128 U/L (45-117); ALT (GPT) 45 U/L (10-53); AST (GOT) 141 U/L (15-37); BICARBONATE 27.2 MEQ/L (21.0-32.0); BLOOD UREA NITROGEN 7 MG/DL (7-18); CHLORIDE 105 MEQ/L (98-107); GLOMERULAR FILTRATION RATE 77 ML/MIN (>89); SODIUM (NA) 142 MEQ/L (136-145)
[2016-08-30 16:18] LABS: ACETAMINOPHEN LESS THAN 2.0 MCG/ML (10.0-30.0); TOTAL BILIRUBIN ADULT 7.6 MG/DL (0.2-1.0)
[2016-08-30 16:20] LABS: POTASSIUM 2.8 MEQ/L (3.5-5.1)
[2016-08-30] MEDS ORDERED: POTASSIUM CHLORIDE 20 MEQ CONTROLLED RELEASE TAB PO ONE (16:30)
[2016-08-30 16:33] LABS: SCAN/DIFF AUTO DIFF CONFIRMED
[2016-08-30] MEDS ORDERED: MAGNESIUM OXIDE 400 MG TAB PO ONE (16:45)
[2016-08-30 18:12] VITALS: BP 119/58; PULSE 100; RESP 18; O2SAT 100
[2016-08-30 22:14] VITALS: BP 119/54; PULSE 104; RESP 17; O2SAT 100
[2016-08-31 01:55] VITALS: BP 115/58; PULSE 106; RESP 18; O2SAT 97
[2016-08-31 06:14] VITALS: BP 102/51; PULSE 99; RESP 20; O2SAT 98
--- NOTE | 2016-08-31 10:24 | PD ---
History of Present Illness Chief Complaint: Psychiatric Symptoms Time Seen by Provider: 10:15 Travel History International Travel<30 Days: No Contact w/Intl Traveler<30days: No Known affected area: No Legal Status Legal Status: Voluntary History of Present Illness: This is a 41-year-old female with a history of alcohol abuse, liver cirrhosis, ITP, and reported suicidal ideation upon arrival. At this time the patient has no suicidal or homicidal ideation, plan or intent. She is verbally ander for safety and her cognition is intact. She presents with no psychotic symptoms. She shows no significant symptoms of alcohol withdrawal and she describes a history of non-alcohol withdrawal symptoms when she stops drinking. She was interviewed by this physician, the chart was reviewed and the case discussed with the nursing staff. Obviously the patient has significant physical issues due to her diagnosis of cirrhosis and ITP. She has been medically cleared, however, and has no physical complaints. This physician discussed with the patient that we are not license for detox and rehabilitation. Patient would like to go home. She was encouraged to stop drinking and indicates that she will. She wants to save herself and her family. She was referred to [facility] but informed they may not take her due to her history of cirrhosis and ITP. Patient admits she is capable of stopping her alcohol abuse on her own. She lives with her who is an over the road veneer gluer. Her [id number] lives close by. [facility] Past Medical History Cardiovascular Problems: No Cirrhosis: Yes (LIVER FAILURE DUE TO ETOH AND TYLENOL) Diabetes: Yes Patient Takes Glucophage: No Diminished Hearing: No Genitourinary: No Musculoskeletal: No Neurologic: No Reproductive: No Respiratory: No Tetanus Vaccination: Unknown Influenza Vaccination: No ?: Not : 3 Para: 3 Miscarriage: 0 : 0 Past Surgical History Abdominal Surgery: Yes (ex lap ) Section: Yes (x 3) Cholecystectomy: Yes Other Surgery: Yes (gallbladder removal and appendix ) Psychiatric History Psychiatric History Hx Psychiatric Treatment: NO History of Inpatient Treatment: No Social History Hx Alcohol Use: Yes (2 4-LOCO PER DAY) Hx Tobacco Use: No Hx Substance Use: Yes Substance Use Type: Alcohol Other Substances Used: DRINKS BEER - 2-4 LOCO PER Hx of Substance Use Treatment: No Allergies-Medications (Allergen,Severity, Reaction): Coded Allergies: Morphine (Verified Adverse Reaction, Mild, Nausea/Vomiting, 08/30/16) Reported Meds & Prescriptions Reported Meds & Active Scripts Active Spironolactone 100 Mg Tab 100 Mg PO DAILY Ranitidine (Ranitidine HCl) 150 Mg Tab 150 Mg PO DAILY Pentoxifylline ER (Pentoxifylline) 400 Mg Tab 400 Mg PO Q8HR 28 Days Reported Lasix (Furosemide) 40 Mg Tab 40 Mg PO BID Vitamin B-1 (Thiamine HCl) 250 Mg Tab 250 Mg PO DAILY Multi For Her 50+ (Multiple Vitamins W/ Minerals) 1 Tab Tab 1 Tab PO DAILY Folic Acid 1 Mg Tablet 1 Mg PO DAILY Review of Systems Except as stated in HPI: all other systems reviewed are Neg Exam Alert: Yes [place]: Person, Place, Date, Situation Mood: Calm Affect: Appropriate Speech: Clear, Logical Eye Contact: Normal Memory Intact: Immediate, Recent, Remote Insight/Judgement Adequate MDM Medical Decision Making Medical Record Reviewed: Yes Assessment/Plan 41-year-old female with obvious history of alcoholism and concomitant history of cirrhosis and ITP. At this time the patient is not suicidal or homicidal and has no ideation, plan or intent. Cognition is intact and she has no psychotic symptoms. She is verbally ander for safety and acknowledges she needs to stop drinking to save herself and her family. She is referred to [facility] for treatment but is capable of stopping alcohol without going through serious withdrawal. This physician of course recommends that she drink no more. At this time the patient is not tremulous, suffering from altered mental status, diaphoretic, tachycardic, etc. Orders Complete Blood Count With Diff (08/30/16 15:08) Comprehensive Metabolic Panel (08/30/16 15:08) Psych Screen (08/30/16 15:08) Drug Screen, Random Urine (08/30/16 15:08) Alcohol (Ethanol) (08/30/16 15:08) Tylenol (Acetaminophen) (08/30/16 15:08) Potassium Chloride (Kcl) (08/30/16 16:30) Magnesium Oxide (Mag-Ox) (08/30/16 16:45) Diet Diabetic (08/31/16 Breakfast) Results Vital Signs Date Time Temp Pulse Resp B/P Pulse Ox O2 Delivery O2 Flow Rate FiO2 08/31/16 06:14 99 20 102/51 98 Room Air 08/31/16 01:55 106 18 115/58 97 Room Air 08/30/16 22:14 104 17 119/54 100 Room Air 08/30/16 18:12 100 18 119/58 100 Room Air 08/30/16 15:07 112 16 139/68 99 Room Air 08/30/16 13:42 98.5 108 20 130/68 100 Room Air Laboratory Tests Test 08/30/16 08/30/16 15:20 15:30 White Blood Count 5.0 Red Blood Count 2.60 Hemoglobin 9.3 Hematocrit 27.7 Mean Corpuscular Volume 106.6 Mean Corpuscular Hemoglobin 35.7 Mean Corpuscular Hemoglobin 33.4 Concent Red Cell Distribution Width 17.9 Platelet Count 36 Mean Platelet Volume 8.5 Neutrophils (%) (Auto) 64.2 Lymphocytes (%) (Auto) 24.8 Monocytes (%) (Auto) 9.7 Eosinophils (%) (Auto) 0.8 Basophils (%) (Auto) 0.5 Neutrophils # (Auto) 3.2 Lymphocytes # (Auto) 1.2 Monocytes # (Auto) 0.5 Eosinophils # (Auto) 0.0 Basophils # (Auto) 0.0 CBC Comment AUTO DIFF Differential Comment AUTO DIFF CONFIRMED Sodium Level 142 Potassium Level 2.8 Chloride Level 105 Carbon Dioxide Level 27.2 Anion Gap 10 Blood Urea Nitrogen 7 Creatinine 0.83 Estimat Glomerular Filtration 77 Rate Random Glucose 150 Calcium Level 8.3 Total Bilirubin 7.6 Aspartate Amino Transf 141 (AST/SGOT) Alanine Aminotransferase 45 (ALT/SGPT) Alkaline Phosphatase 128 Total Protein 7.3 Albumin 2.8 Acetaminophen Level LESS THAN 2.0 Ethyl Alcohol Level 248 Urine Opiates Screen NEG Urine Barbiturates Screen NEG Urine Amphetamines Screen NEG Urine Benzodiazepines Screen NEG Urine Cocaine Screen NEG Urine Cannabinoids Screen NEG Diagnosis Primary Impression: Adjustment disorder with mixed disturbance of emotions and conduct Additional Impressions: Alcohol abuse Thrombocytopenia Cirrhosis of liver Referrals: Abe Mcgovern MD Administrative Liaison Problem Qualifiers Additional Impressions: Cirrhosis of liver Qualified Code: K74.60 - Cirrhosis of liver without ascites, unspecified hepatic cirrhosis type Abe Parham MD Aug 31, 2016 10:24
[2016-08-31 11:49] VITALS: BP 114/60; TEMP 97.3
== END 2016-08-31 11:15 | disposition home or self-care (01) ==
LOC: NEPD 13:41 → NEPJ 08-31 11:15
DX: F43.20 Adjustment disorder, unspecified (principal); D69.3 Immune thrombocytopenic purpura; F10.10 Alcohol abuse, uncomplicated; K74.60 Unspecified cirrhosis of liver
CPT/HCPCS: 80053; 80307; 85025; 99284

== ENCOUNTER 2016-09-17 20:42 | Emergency (ER) | payer SELFPAY ==
[~2016-09-17 20:42] MED LIST changes: -CEFT250S PO; -LACT10SO PO; -PRED20 PO
[2016-09-17 20:44] VITALS: BP 125/59; PULSE 126; RESP 16; TEMP 98.4; O2SAT 99
[2016-10-03] MEDS ORDERED: SPIR100T PO ×2 (11:36→12:09)
[2016-10-03] MEDS ORDERED: RANI150T PO ×2 (11:36→12:09)
[2016-10-03] MEDS ORDERED: PANT40TA3 PO (12:09)
[2016-10-03] MEDS ORDERED: PENT400T PO (12:09)
[2016-10-03] MEDS ORDERED: PHYT5TAB2 PO (12:09)
[2016-10-03] MEDS ORDERED: FURO1TAB60 PO (12:09)
[2016-10-03] MEDS ORDERED: VITA250T25 PO (12:09)
[2016-10-03] MEDS ORDERED: FOLI1TAB6 PO (12:09)
== END 2016-09-17 23:00 | disposition left against medical advice (07) ==
LOC: NED 20:42
DX: R06.02 Shortness of breath (principal); Z53.21 Procedure and treatment not carried out due to patient leaving prior to being seen by health care provider
CPT/HCPCS: 99281

== ENCOUNTER 2016-09-18 08:39 | Inpatient (IN) | payer SELFPAY ==
[~2016-09-18] VITALS: Ht 160 cm; Wt 68.5 kg
[2016-09-18] VITALS (11 sets, daily range): BP systolic 106–144; BP diastolic 53–71; PULSE 112–132; RESP 13–24; TEMP 97.9–100; O2SAT 96–100
[2016-09-18] MEDS ORDERED: SODIUM CHLOR 0.9% 1000 ML INJ 1,000 ML IV SCH (09:07)
[2016-09-18] MEDS ORDERED: SODIUM CHLORIDE 0.9% FLUSH 10 ML FLUSH IV FLUSH PRN (09:15)
--- NOTE | 2016-09-18 09:29 | PD ---
HPI Chief Complaint: Medical Clearance Time Seen by Provider: 08:56 Travel History International Travel<30 days: No Contact w/Intl Traveler<30days: No Traveled to known affect area: No History of Present Illness HPI Patient is a 41-year-old female with history of alcohol abuse, liver cirrhosis, ITP, hypertension, presents to emergency room with complaints of abdominal swelling with shortness of breath and headache. 1) patient reports that 7 days ago she fell and hit the back of her head. Reports that she had no loss of consciousness, she is currently not on anticoagulants, reports concern as she still has a "bump on my head." Patient denies any vision changes or nausea vomiting at this time. 2) abdominal pain with swelling: Patient reports that she is history of liver cirrhosis, reports that she is past alcoholic, reports that her last drink was on August 29, 2016. Patient reports that she has history of liver disease requiring paracentesis in the past. Reports that she feels so swollen and her abdomen, she feels short of breath. Patient with no cough or congestion, no fevers or chills. 3) patient reports that 3 days ago, she noticed the bruising to her right buttocks. Patient denies any fall, or trauma, reports that she her right buttocks became bruise and goes down to her right thigh. 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) Diabetes: Yes (no meds at this time) Patient Takes Glucophage: No Diminished Hearing: No Genitourinary: No Musculoskeletal: No Neurologic: No Reproductive: No Respiratory: No ?: Not : 3 Para: 3 Miscarriage: 0 : 0 Past Surgical History Abdominal Surgery: Yes (ex lap ) Section: Yes (x 3) Cholecystectomy: Yes Other Surgery: Yes (gallbladder removal and appendix ) Social History Alcohol Use: Yes (2 4-LOCO PER DAY) Tobacco Use: No Substance Use: Yes Allergies-Medications (Allergen,Severity, Reaction): Coded Allergies: Morphine (Verified Adverse Reaction, Mild, Nausea/Vomiting, 09/18/16) Reported Meds & Prescriptions Reported Meds & Active Scripts Active Spironolactone 100 Mg Tab 100 Mg PO DAILY Ranitidine (Ranitidine HCl) 150 Mg Tab 150 Mg PO DAILY Pentoxifylline ER (Pentoxifylline) 400 Mg Tab 400 Mg PO Q8HR 28 Days Reported Lasix (Furosemide) 40 Mg Tab 40 Mg PO BID Vitamin B-1 (Thiamine HCl) 250 Mg Tab 250 Mg PO DAILY Multi For Her 50+ (Multiple Vitamins W/ Minerals) 1 Tab Tab 1 Tab PO DAILY Folic Acid 1 Mg Tablet 1 Mg PO DAILY Review of Systems General / Constitutional: No: Fever Eyes: No: Visual changes HENT: No: Headaches Cardiovascular: No: Chest Pain or Discomfort Respiratory: Positive: Shortness of Breath Gastrointestinal: Positive: Abdominal Pain, Other (abdominal distention) Genitourinary: No: Dysuria Musculoskeletal: No: Pain Skin: Positive Other (bruising to right buttocks), No Rash Neurologic: Positive: Headache, No: Weakness Psychiatric: No: Depression Endocrine: No: Polydipsia Hematologic/Lymphatic: No: Easy Bruising Physical Exam Narrative GENERAL: Mild distress SKIN: Focused skin assessment warm/dry. Patient with bruising to her right buttocks to her right posterior thigh, patient with bruising to her abdomen HEAD:Normocephalic. Patient with hematoma to posterior occiput EYES: Pupils equal and round. No scleral icterus. No injection or drainage. ENT: No nasal bleeding or discharge. Mucous membranes pink and moist. NECK: Trachea midline. No JVD. CARDIOVASCULAR: Regular rate and rhythm. No murmur appreciated. RESPIRATORY: No accessory muscle use. Clear to auscultation. Breath sounds equal bilaterally. GASTROINTESTINAL: Abdomen soft, non-tender, distended. Hepatic and splenic margins not palpable. Patient with bruising to her right buttocks to her right posterior thigh MUSCULOSKELETAL: No obvious deformities. No clubbing. No cyanosis. No edema. NEUROLOGICAL: Awake and alert. No obvious cranial nerve deficits. Motor grossly within normal limits. Normal speech. PSYCHIATRIC: Appropriate mood and affect; insight and judgment normal. Data Data Last Documented VS Vital Signs Date Time Temp Pulse Resp B/P Pulse Ox O2 Delivery O2 Flow Rate FiO2 09/18/16 09:24 100 Room Air 09/18/16 08:53 98.9 124 14 127/71 Orders Ammonia (09/18/16 09:07) Complete Blood Count With Diff (09/18/16 09:07) Comprehensive Metabolic Panel (09/18/16 09:07) Lipase (09/18/16 09:07) Prothrombin Time / Inr (Pt) (09/18/16 09:07) Act Partial Throm Time (Ptt) (09/18/16 09:07) Urinalysis - C+S If Indicated (09/18/16 09:07) Ct Abd/Pel W Iv Contrast(Rout) (09/18/16 09:07) Iv Access Insert/Monitor (09/18/16 09:07) Ecg Monitoring (09/18/16 09:07) Oximetry (09/18/16 09:07) Sodium Chlor 0.9% 1000 Ml Inj (Ns 1000 M (09/18/16 09:07) Sodium Chloride 0.9% Flush (Ns Flush) (09/18/16 09:15) Chest, Single Ap (09/18/16 09:07) Ed Urine Pregnancytest Poc (09/18/16 09:07) Ct Brain W/O Iv Contrast(Rout) (09/18/16 09:07) Drug Screen, Random Urine (09/18/16 09:07) Alcohol (Ethanol) (09/18/16 09:07) Type And Screen (09/18/16 09:45) Red Blood Cells (Rbc) (09/18/16 09:59) Blood Product Administration .UPON TRANSFUSION (09/18/16 09:59) Sodium Chlor 0.9% 250 Ml Inj (Ns 250 Ml (09/18/16 10:00) Urine Culture (09/18/16 09:30) Potassium Chloride (Kcl) (09/18/16 10:45) Ceftriaxone Inj (Rocephin Inj) (09/18/16 10:45) Iohexol 350 Inj (Omnipaque 350 Inj) (09/18/16 11:36) Admit To Inpatient (09/18/16 ) Inpatient Certification (09/18/16 ) Neuro Checks . ORDERED (09/18/16 12:53) Diet Npo (09/18/16 Lunch) Activity Bed Rest (09/18/16 12:53) Vital Signs (Adult) MECHELLE.Q4H (09/18/16 12:53) Admit Order (Ed Use Only) (09/18/16 12:53) Labs Laboratory Tests Test 09/18/16 09/18/16 09/18/16 09/18/16 09:15 09:25 09:30 09:49 White Blood Count 5.9 TH/MM3 Red Blood Count 1.74 MIL/MM3 Hemoglobin 6.8 GM/DL Hematocrit 19.2 % Mean Corpuscular Volume 110.4 FL Mean Corpuscular Hemoglobin 39.2 PG Mean Corpuscular Hemoglobin 35.5 % Concent Red Cell Distribution Width 16.5 % Platelet Count 77 TH/MM3 Mean Platelet Volume 9.7 FL Neutrophils (%) (Auto) 68.1 % Lymphocytes (%) (Auto) 23.1 % Monocytes (%) (Auto) 6.8 % Eosinophils (%) (Auto) 1.2 % Basophils (%) (Auto) 0.8 % Neutrophils # (Auto) 4.0 TH/MM3 Lymphocytes # (Auto) 1.4 TH/MM3 Monocytes # (Auto) 0.4 TH/MM3 Eosinophils # (Auto) 0.1 TH/MM3 Basophils # (Auto) 0.0 TH/MM3 CBC Comment AUTO DIFF Differential Comment AUTO DIFF CONFIRMED Platelet Estimate LOW Platelet Morphology Comment NORMAL Ovalocytes 1+ Prothrombin Time 17.6 SEC Prothromb Time International 1.6 RATIO Ratio Activated Partial 31.0 SEC Thromboplast Time Sodium Level 138 MEQ/L Potassium Level 3.4 MEQ/L Chloride Level 106 MEQ/L Carbon Dioxide Level 21.8 MEQ/L Anion Gap 10 MEQ/L Blood Urea Nitrogen 9 MG/DL Creatinine 0.54 MG/DL Estimat Glomerular Filtration 126 ML/MIN Rate Random Glucose 112 MG/DL Calcium Level 7.8 MG/DL Total Bilirubin 10.3 MG/DL Aspartate Amino Transf 187 U/L (AST/SGOT) Alanine Aminotransferase 41 U/L (ALT/SGPT) Alkaline Phosphatase 123 U/L Total Protein 5.9 GM/DL Albumin 2.3 GM/DL Lipase 369 U/L Ethyl Alcohol Level 204 MG/DL Ammonia 77 MCMOL/L Urine Color DARK-BROWN Urine Turbidity HAZY Urine pH 6.0 Urine Specific [place] 1.027 Urine Protein 30 mg/dL Urine Glucose (UA) TRACE mg/dL Urine Ketones NEG mg/dL Urine Occult Blood NEG Urine Nitrite NEG Urine Bilirubin MOD Urine Urobilinogen 8.0 MG/DL Urine Leukocyte Esterase MOD Urine RBC 4 /hpf Urine WBC 12 /hpf Urine Squamous Epithelial 3 /hpf Cells Urine Bacteria MANY /hpf Urine Mucus MANY /lpf Microscopic Urinalysis Comment CULTURE INDICATED Urine Opiates Screen NEG Urine Barbiturates Screen NEG Urine Amphetamines Screen NEG Urine Benzodiazepines Screen NEG Urine Cocaine Screen NEG Urine Cannabinoids Screen NEG Blood Type O POSITIVE Antibody Screen POSITIVE MDM Medical Decision Making Medical Screen Exam Complete: Yes Emergency Medical Condition: Yes Interpretation(s) Vital Signs Date Time Temp Pulse Resp B/P Pulse Ox O2 Delivery O2 Flow Rate FiO2 09/18/16 08:53 98.9 124 14 127/71 100 Room Air 09/18/16 08:41 98.3 132 24 144/67 99 Room Air Differential Diagnosis Differential includes anemia, thrombocytopenia, liver failure, abdominal ascites , hyperammonia, ITP, coagulopathy, intracranial hemorrhage versus scalp hematoma Narrative Course 41-year-old female with history of liver cirrhosis secondary to alcohol abuse, ITP, since the emergency room with complaints of abdominal pain and swelling with shortness of breath as well as with bruising to her right buttocks down to her right hip. Vital Signs Date Time Temp Pulse Resp B/P Pulse Ox O2 Delivery O2 Flow Rate FiO2 09/18/16 08:53 98.9 124 14 127/71 100 Room Air 09/18/16 08:41 98.3 132 24 144/67 99 Room Air Patient was placed on a monitor tech upon arrival to the emergency room. Patient has diffuse ascites her abdomen, she also has some bruising to her right gluteus down to her right thigh. Patient with history of ITP liver cirrhosis and coagulopathy. CT of the abdomen pelvis, lab work including LFTs, coags ordered. Patient also reports that she fell one week ago, reports pain to the back of her head. CT of the head ordered. Vital Signs Date Time Temp Pulse Resp B/P Pulse Ox O2 Delivery O2 Flow Rate FiO2 09/18/16 09:24 100 Room Air 09/18/16 08:53 98.9 124 14 127/71 100 Room Air 09/18/16 08:41 98.3 132 24 144/67 99 Room Air Laboratory Tests Test 09/18/16 09/18/16 09/18/16 09/18/16 09:15 09:25 09:30 09:49 White Blood Count 5.9 TH/MM3 (4.0-11.0) Red Blood Count 1.74 MIL/MM3 (4.00-5.30) Hemoglobin 6.8 GM/DL (11.6-15.3) Hematocrit 19.2 % (35.0-46.0) Mean Corpuscular Volume 110.4 FL (80.0-100.0) Mean Corpuscular Hemoglobin 39.2 PG (27.0-34.0) Mean Corpuscular Hemoglobin 35.5 % Concent (32.0-36.0) Red Cell Distribution Width 16.5 % (11.6-17.2) Platelet Count 77 TH/MM3 (150-450) Mean Platelet Volume 9.7 FL (7.0-11.0) Neutrophils (%) (Auto) 68.1 % (16.0-70.0) Lymphocytes (%) (Auto) 23.1 % (9.0-44.0) Monocytes (%) (Auto) 6.8 % (0.0-8.0) Eosinophils (%) (Auto) 1.2 % (0.0-4.0) Basophils (%) (Auto) 0.8 % (0.0-2.0) Neutrophils # (Auto) 4.0 TH/MM3 (1.8-7.7) Lymphocytes # (Auto) 1.4 TH/MM3 (1.0-4.8) Monocytes # (Auto) 0.4 TH/MM3 (0-0.9) Eosinophils # (Auto) 0.1 TH/MM3 (0-0.4) Basophils # (Auto) 0.0 TH/MM3 (0-0.2) CBC Comment AUTO DIFF Differential Comment AUTO DIFF CONFIRMED Platelet Estimate LOW (NORMAL) Platelet Morphology Comment NORMAL (NORMAL) Ovalocytes 1+ (NORMAL) Prothrombin Time 17.6 SEC (9.8-11.6) Prothromb Time International 1.6 RATIO Ratio Activated Partial 31.0 SEC Thromboplast Time (24.3-30.1) Sodium Level 138 MEQ/L (136-145) Potassium Level 3.4 MEQ/L (3.5-5.1) Chloride Level 106 MEQ/L (98-107) Carbon Dioxide Level 21.8 MEQ/L (21.0-32.0) Anion Gap 10 MEQ/L (5-15) Blood Urea Nitrogen 9 MG/DL (7-18) Creatinine 0.54 MG/DL (0.50-1.00) Estimat Glomerular Filtration 126 ML/MIN Rate (>89) Random Glucose 112 MG/DL (74-106) Calcium Level 7.8 MG/DL (8.5-10.1) Total Bilirubin 10.3 MG/DL (0.2-1.0) Aspartate Amino Transf 187 U/L (15-37) (AST/SGOT) Alanine Aminotransferase 41 U/L (10-53) (ALT/SGPT) Alkaline Phosphatase 123 U/L (45-117) Total Protein 5.9 GM/DL (6.4-8.2) Albumin 2.3 GM/DL (3.4-5.0) Lipase 369 U/L (73-393) Ethyl Alcohol Level 204 MG/DL (0-5) Ammonia 77 MCMOL/L (11-32) Urine Color DARK-BROWN (YELLW/STRAW) Urine Turbidity HAZY (CLEAR) Urine pH 6.0 (5.0-8.5) Urine Specific [place] 1.027 (1.002-1.035) Urine Protein 30 mg/dL (NEG-TRACE) Urine Glucose (UA) TRACE mg/dL (NEG) Urine Ketones NEG mg/dL (NEG) Urine Occult Blood NEG (NEG) Urine Nitrite NEG (NEG) Urine Bilirubin MOD (NEG) Urine Urobilinogen 8.0 MG/DL (LESS THAN 2.0) Urine Leukocyte Esterase MOD (NEG) Urine RBC 4 /hpf (0-3) Urine WBC 12 /hpf (0-5) Urine Squamous Epithelial 3 /hpf (0-5) Cells Urine Bacteria MANY /hpf (NONE) Urine Mucus MANY /lpf (OCC) Microscopic Urinalysis Comment CULTURE INDICATED Urine Opiates Screen NEG (NEG) Urine Barbiturates Screen NEG (NEG) Urine Amphetamines Screen NEG (NEG) Urine Benzodiazepines Screen NEG (NEG) Urine Cocaine Screen NEG (NEG) Urine Cannabinoids Screen NEG (NEG) Blood Type O POSITIVE HGB 6.8, patient typed and screened, 1 unit of packed red blood cells ordered Case reviewed to Dr. Seals who accepts to service Critical Care Narrative Aggregate critical care time was 30 minutes. Time to perform other separately billable procedures was not included in the critical care time. My time did not include minutes spent treating any other patients simultaneously or on activities that did not directly contribute to the patient's treatment. The services I provided to this patient were to treat and/or prevent clinically significant deterioration that could result in: , decompensation, deterioration I provided critical care services requiring my management, as noted below: Chart data review, documentation time, medication orders and management, vital sign assessments/reviewing monitor data, ordering and reviewing lab tests, ordering and interpreting/reviewing x-rays and diagnostic studies, care of the patient and discussion of the patient with the admitting physicians. Diagnosis Primary Impression: Alcohol abuse Additional Impressions: Cirrhosis of liver Thrombocytopenia Coagulopathy Ascites Anemia Hypokalemia UTI (urinary tract infection) Admitting Information Admitting Physician Requests: Admit Tierra Isabel DO Sep 18, 2016 09:29
[2016-09-18 09:32] LABS: BASOPHIL % 0.8 % (0.0-2.0); EOSINOPHIL # 0.1 TH/MM3 (0-0.4); EOSINOPHIL % 1.2 % (0.0-4.0); LYMPH % 23.1 % (9.0-44.0); LYMPHOCYTE # 1.4 TH/MM3 (1.0-4.8); MEAN CELL VOLUME 110.4 FL (80.0-100.0); MEAN CORPUSCULAR HEMOGLOBIN 39.2 PG (27.0-34.0); MEAN CORPUSCULAR HGB CONC 35.5 % (32.0-36.0); MONO % 6.8 % (0.0-8.0); NEUT % 68.1 % (16.0-70.0); PLATELET COUNT 77 TH/MM3 (150-450); RED BLOOD COUNT 1.74 MIL/MM3 (4.00-5.30); RED CELL DISTRIBUTION WIDTH 16.5 % (11.6-17.2); WHITE BLOOD COUNT 5.9 TH/MM3 (4.0-11.0)
--- NOTE | 2016-09-18 09:35 | RADRPT ---
EXAM DATE/TIME: 09/18/2016 09:17 [facility] COMPARISON: CHEST SINGLE AP, August 06, 2016, 18:43. INDICATIONS : Short of breath. MEDICAL HISTORY : Cirrhosis. SURGICAL HISTORY : None. ENCOUNTER: Initial ACUITY: 1 day PAIN SCORE: 0/10 LOCATION: Bilateral chest FINDINGS: A single view of the chest demonstrates the lungs to be symmetrically aerated without evidence of mas s, infiltrate or effusion. The cardiomediastinal contours are unremarkable. Osseous structures are intact. CONCLUSION: No acute disease. Michoacano Mcmullen MD on September 18, 2016 at 9:34 Board Certified Radiologist. This report was verified electronically.
[2016-09-18 09:40] LABS: INTERNATIONAL NORMALIZED RATIO 1.6 RATIO; PROTHROMBIN TIME - PATIENT 17.6 SEC (9.8-11.6)
[2016-09-18 09:41] LABS: HEMO FLAGS AUTO DIFF
[2016-09-18 09:45] LABS: HEMATOCRIT 19.2 % (35.0-46.0)
[2016-09-18] MEDS ORDERED: SODIUM CHLOR 0.9% 250 ML INJ 250 ML IV ONE (10:00)
[2016-09-18 10:03] LABS: BACTERIA, URINE MANY /hpf; BLOOD, URINE NEG (NEG); COMMENT (UR) CULTURE INDICATED; CULTURE IF INDICATED CULTURE INDICATED; GLUCOSE,URINE TRACE mg/dL (NEG); KETONE, URINE NEG (NEG); MUCUS URINE MANY /lpf (OCC); NITRITE,URINE NEG (NEG); SQUAMOUS EPITHELIAL CELL URINE 3 /hpf (0-5)
[2016-09-18 10:04] LABS: AMPHETAMINE, URINE NEG (NEG); BARBITURATES, URINE NEG (NEG); COCAINE, URINE NEG (NEG); URINE COLOR DARK-BROWN (YELLW/STRAW)
[2016-09-18 10:05] LABS: ALT (GPT) 41 U/L (10-53); ANION GAP 10 MEQ/L (5-15); AST (GOT) 187 U/L (15-37); BICARBONATE 21.8 MEQ/L (21.0-32.0); BLOOD UREA NITROGEN 9 MG/DL (7-18); CHLORIDE 106 MEQ/L (98-107); GLOMERULAR FILTRATION RATE 126 ML/MIN (>89); POTASSIUM 3.4 MEQ/L (3.5-5.1); SODIUM (NA) 138 MEQ/L (136-145)
[2016-09-18 10:08] LABS: ALKALINE PHOSPHATASE 123 U/L (45-117); TOTAL BILIRUBIN ADULT 10.3 MG/DL (0.2-1.0)
[2016-09-18 10:10] LABS: OVALOCYTES 1+ (NORMAL); PLATELET ESTIMATE SMEAR LOW (NORMAL); PLATELET MORPHOLOGY NORMAL (NORMAL); SCAN/DIFF AUTO DIFF CONFIRMED
[2016-09-18] MEDS ORDERED: POTASSIUM CHLORIDE 10 MEQ CONTROLLED RELEASE TAB PO ONE (10:45)
[2016-09-18] MEDS ORDERED: cefTRIAXone INJ 1,000 MG in SODIUM CHLORIDE 0.9% INJ 100 ML IV ONE (10:45)
--- NOTE | 2016-09-18 11:28 | RADRPT ---
EXAM DATE/TIME: 09/18/2016 11:07 [facility] COMPARISON: No previous studies available for comparison. INDICATIONS : Trauma; cephalgia from fall one week ago RADIATION DOSE: 58.61 CTDIvol (mGy) MEDICAL HISTORY : Hypertension. SURGICAL HISTORY : Liver failure. ENCOUNTER: Initial ACUITY: 1 week PAIN SCALE: 4/10 LOCATION: Bilateral cranial TECHNIQUE: Multiple contiguous axial images were obtained of the head. Using automated exposure control and adj ustment of the mA and/or kV according to patient size, radiation dose was kept as low as reasonably a chievable to obtain optimal diagnostic quality images. DICOM format image data is available electro nically for review and comparison. FINDINGS: CEREBRUM: The ventricles are normal for age. No evidence of midline shift, mass lesion, hemorrhage or acute in farction. No extra-axial fluid collections are seen. POSTERIOR FOSSA: The cerebellum and brainstem are intact. The 4th ventricle is midline. The cerebellopontine angle i s unremarkable. EXTRACRANIAL: The visualized portion of the orbits is intact. Small subgaleal hematoma is noted along the right pos terior parietal skull. SKULL: The calvaria is intact. No evidence of skull fracture. CONCLUSION: 1. No acute intracranial abnormality. 2. Small subgaleal hematoma along the right posterior parietal skull. Maikel Pompa MD on September 18, 2016 at 11:25 Board Certified Radiologist. This report was verified electronically.
[2016-09-18] MEDS ORDERED: IOHEXOL 350 MG/ML 10 ML VIAL (for RAD DIAG) IV ONE (11:36)
--- NOTE | 2016-09-18 11:59 | RADRPT ---
EXAM DATE/TIME: 09/18/2016 11:15 [facility] COMPARISON: CT ABDOMEN & PELVIS W CONTRAST, August 07, 2016, 16:05. INDICATIONS : Abdomen pain; distention. IV CONTRAST: 75 cc Omnipaque 350 (iohexol) IV ORAL CONTRAST: No oral contrast ingested. RADIATION DOSE: 14.44 CTDIvol (mGy) MEDICAL HISTORY : Hypertension. Liver failure SURGICAL HISTORY : Ex-lap ENCOUNTER: Initial ACUITY: 1 day PAIN SCALE: 5/10 LOCATION: Bilateral abdomen TECHNIQUE: Volumetric scanning of the abdomen and pelvis was performed. Using automated exposure control and ad justment of the mA and/or kV according to patient size, radiation dose was kept as low as reasonably achievable to obtain optimal diagnostic quality images. DICOM format image data is available electro nically for review and comparison. FINDINGS: There is persistent nodularity of the contour of the liver indicating cirrhosis. Marked splenomegaly is again noted. A moderate to large amount of ascites is noted within the abdomen and pelvis. Reca nnulization of the umbilical vein is again noted. This finding again suggests portal hypertension. Varices are also again noted within the anterior peritoneum and are stable. The 2 cm low density les ion within the left lobe of the liver is stable. The patient is status post cholecystectomy. The k idneys are unremarkable. The adrenal glands are normal. The pancreas is normal. There is no eviden ce of bowel obstruction. The uterus is normal. The urinary bladder is unremarkable. No lymphadenop athy is noted. The abdominal aorta and inferior vena cava are stable. A small right pleural effusio n is noted. Bibasilar atelectactic changes are noted. Mild degenerative changes and scoliosis of th e lumbar spine are stable. There is evidence of mild anasarca. CONCLUSION: 1. Moderate to large amount of ascites. 2. Nodularity of the liver, splenomegaly, recanalization of the umbilical vein and peritoneal varice s anteriorly indicating cirrhosis and portal hypertension. 3. Stable 2 cm low density lesion within the left lobe of the liver. 4. Anasarca. 5. Small right pleural effusion. Maikel Pompa MD on September 18, 2016 at 11:34 Board Certified Radiologist. This report was verified electronically.
--- NOTE | 2016-09-18 15:31 | RADRPT ---
EXAM DATE/TIME: 09/18/2016 13:52 [facility] COMPARISON: US GUIDED ABD PARACENTESIS, August 08, 2016, 17:04. INDICATIONS : Ascites. MEDICAL HISTORY : Hypertension. Cirrhosis. Diabetes. ETOH abuse. PTSD. Substance use. SURGICAL HISTORY : section. Cholecystectomy. Appendectomy. Exploratory laprascopy. ENCOUNTER: Subsequent ACUITY: 1 month PAIN SCORE: 8/10 LOCATION: Right lower quadrant FLUID: Total volume of 4900 cc of osvaldo. fluid was removed. Fluid was discarded. Paracentesis was therapeutic only. Post procedure scanning reveals no hematoma or other complication. TECHNIQUE: 1. Ultrasound guidance for abdominal paracentesis. 2. Paracentesis. The risks, benefits, and alternatives to ultrasound guided paracentesis were explained to the patient in detail including the risk of bleeding and infection. Written and verbal informed consent was obt ained. With the patient on the ultrasound table, ultrasound imaging was used to select the most appropriate approach for paracentesis. Overlying skin was prepped and draped in the usual sterile fashion and wi th a local anesthetic, a dermatotomy was made with an 11 blade scalpel. A 6 [place] [id number] ca theter was introduced into the peritoneal cavity and fluid was collected. The patient tolerated the procedure well and left the ultrasound suite in stable condition. CONCLUSION: Uncomplicated ultrasound guided paracentesis. Saul Roberts MD FACR on September 18, 2016 at 15:30 Board Certified Radiologist. This report was verified electronically.
--- NOTE | 2016-09-18 15:58 | HHI.HP ---
HPI Service [facility] Primary Care Physician Unknown Admission Diagnosis symptomatic anemia, asiites Diagnoses: Chief Complaint: Shortness of breath and generalized weakness Travel History International Travel<30 Days: No Contact w/Intl Traveler <30 Da: No Traveled to Known Affected Are: No History of Present Illness Patient is a 41-year-old female with known history of liver cirrhosis secondary to chronic alcohol use was been doing well - abstained from alcohol however admits to having a relapse last August 29. She was on a regimen of diuretics - that she ran out of these medications for about a week now. She came in here today complaining of shortness of breath associated with generalized weakness that has been going on for about 4-5 days. Patient noted generalized swelling increasing abdominal girth and swelling of the legs. And pain when she walks. About 7 days prior to admission patient was playing with her grandson and apparently she tripped on something and hit the ground. Complained of headache since then denies any fever. Also complained of hematoma on the right hip that she said is spreading down to her side. Noted Increasing jaundice. Persistence of the shortness of breath prompted consult to ER where on evaluation was noted to have anasarca and we sent the patient to IR where 4.9 L of fluid was drained. Patient feels more comfortable now after the procedure. Also on evaluation for the head CT showed noted a subgaleal hematoma. Patient reports is a bruisability however denies any gross hematuria denies any melena or hematochezia. Patient admitted for further evaluation. Review of Systems Constitutional: DENIES: Diaphoretic episodes, Fatigue, Fever, Weight gain, Weight loss, Chills, Dizziness, Change in appetite, Night Sweats Endocrine: COMPLAINS OF: Abnorml menstrual pattern (patient menorrhagia since January of last year) Eyes: DENIES: Blurred vision, Diplopia, Eye inflammation, Eye pain, Vision loss , Photosensitivity, Double Vision Ears, nose, mouth, throat: DENIES: Tinnitus, Hearing loss, Vertigo, Nasal discharge, Oral lesions, Throat pain, Hoarseness, Ear Pain, Running Nose, Epistaxis, Sinus Pain, Toothache, Odynophagia Respiratory: DENIES: Apneas, Cough, Snoring, Wheezing, Hemoptysis, Sputum production, Shortness of breath Cardiovascular: COMPLAINS OF: Dyspnea on Exertion, Lower Extremity Edema, DENIES: Chest pain, Palpitations, Syncope, PND, Orthopnea, Claudication Gastrointestinal: DENIES: Abdominal pain, Black stools, Bloody stools, Constipation, Diarrhea, Nausea, Vomiting, Difficulty Swallowing, Anorexia Genitourinary: DENIES: Abnormal vaginal bleeding, Dysmenorrhea, Dyspareunia, Sexual dysfunction, Urinary frequency, Urinary incontinence, Urgency, Hematuria , Dysuria, Nocturia, Vaginal discharge Musculoskeletal: COMPLAINS OF: Joint pain, Muscle aches, Joint Swelling (hip swelling), DENIES: Stiffness, Back pain, Neck pain Integumentary: DENIES: Abnormal pigmentation, Pruritus, Rash, Nail changes, Breast masses, Breast skin changes, Nipple discharge Hematologic/lymphatic: COMPLAINS OF: Bruising (easy bruising) Immunologic/allergic: DENIES: Eczema, Urticaria Neurologic: DENIES: Abnormal gait, Headache, Localized weakness, Paresthesias, Seizures, Speech Problems, Tremor, Poor Balance Psychiatric: DENIES: Anxiety, Confusion, Mood changes, Depression, Hallucinations, Agitation, Suicidal Ideation, Homicidal Ideation, Delusions Past Family Social History Past Medical History Alcoholic liver cirrhosis History of alcohol use was doing well until August for had a relapse. Diabetes type 2 not on any medications Portal hypertension Past Surgical History Gallbladder surgery 3 sections History of explained overlap at 18 years old -appendectomy done Reported Medications Reportedly patient should have been on Lasix 40 mg twice a day Aldactone 100 mg daily Pentoxifylline Multivitamins Allergies: Coded Allergies: Morphine (Verified Adverse Reaction, Mild, Nausea/Vomiting, 09/18/16) Family History Noncontributory Social History No smoking history Admits to heavy alcohol use in the past and had a relapse August 29 Physical Exam Vital Signs Vital Signs Date Time Temp Pulse Resp B/P Pulse Ox O2 Delivery O2 Flow Rate FiO2 09/18/16 15:00 122 16 140/68 99 09/18/16 15:00 118 13 117/61 100 Room Air 09/18/16 14:11 98.0 120 16 133/68 96 09/18/16 13:15 123 18 115/65 98 Room Air 09/18/16 09:24 100 Room Air 09/18/16 08:53 98.9 124 14 127/71 100 Room Air 09/18/16 08:41 98.3 132 24 144/67 99 Room Air Physical Exam GENERAL: This is a well-nourished, well-developed patient, in no apparent distress. Awake and alert no encephalopathy SKIN: Positive jaundice, positive ecchymosis hematoma on the right hip extending to the posterior lateral medial aspect of the right thigh, some ecchymosis on t both knees HEAD: Atraumatic. Normocephalic. No temporal or scalp tenderness. EYES: Pupils equal round and reactive. Extraocular motions intact. icteric ENT: Nose without bleeding, Throat without erythema, NECK: Trachea midline. No JVD or lymphadenopathy. Supple, nontender, no meningeal signs. CARDIOVASCULAR: In sinus rhythm, tachycardic at 1 15/m RESPIRATORY: Clear to auscultation. Breath sounds equal bilaterally. No wheezes , rales, or rhonchi. GASTROINTESTINAL: Examination done posT Paracentesis Abdomen soft, non-tender, nondistended. No guarding. MUSCULOSKELETAL: Extremities without clubbing, cyanosis, +No calf tenderness. Negative Homans sign bilaterally. Able to extend full extension of the right hip full flexion and extension of the right hip, full range of motion of the knee Positive peripheral pulses +2 on both extremities. right lateral aspect of the thigh + fluctuance. knees some ecchymoses NEUROLOGICAL: Awake and alert. Cranial nerves II through XII intact. Motor and sensory grossly within normal limits. Five out of 5 muscle strength in all muscle groups. Normal speech. Laboratory Laboratory Tests Test 09/18/16 09/18/16 09/18/16 09/18/16 09:15 09:25 09:30 09:49 White Blood Count 5.9 Red Blood Count 1.74 Hemoglobin 6.8 Hematocrit 19.2 Mean Corpuscular Volume 110.4 Mean Corpuscular Hemoglobin 39.2 Mean Corpuscular Hemoglobin 35.5 Concent Red Cell Distribution Width 16.5 Platelet Count 77 Mean Platelet Volume 9.7 Neutrophils (%) (Auto) 68.1 Lymphocytes (%) (Auto) 23.1 Monocytes (%) (Auto) 6.8 Eosinophils (%) (Auto) 1.2 Basophils (%) (Auto) 0.8 Neutrophils # (Auto) 4.0 Lymphocytes # (Auto) 1.4 Monocytes # (Auto) 0.4 Eosinophils # (Auto) 0.1 Basophils # (Auto) 0.0 CBC Comment AUTO DIFF Differential Comment AUTO DIFF CONFIRMED Platelet Estimate LOW Platelet Morphology Comment NORMAL Ovalocytes 1+ Prothrombin Time 17.6 Prothromb Time International 1.6 Ratio Activated Partial 31.0 Thromboplast Time Sodium Level 138 Potassium Level 3.4 Chloride Level 106 Carbon Dioxide Level 21.8 Anion Gap 10 Blood Urea Nitrogen 9 Creatinine 0.54 Estimat Glomerular Filtration 126 Rate Random Glucose 112 Calcium Level 7.8 Total Bilirubin 10.3 Aspartate Amino Transf 187 (AST/SGOT) Alanine Aminotransferase 41 (ALT/SGPT) Alkaline Phosphatase 123 Total Protein 5.9 Albumin 2.3 Lipase 369 Ethyl Alcohol Level 204 Ammonia 77 Urine Color DARK-BROWN Urine Turbidity HAZY Urine pH 6.0 Urine Specific [place] 1.027 Urine Protein 30 Urine Glucose (UA) TRACE Urine Ketones NEG Urine Occult Blood NEG Urine Nitrite NEG Urine Bilirubin MOD Urine Urobilinogen 8.0 Urine Leukocyte Esterase MOD Urine RBC 4 Urine WBC 12 Urine Squamous Epithelial 3 Cells Urine Bacteria MANY Urine Mucus MANY Microscopic Urinalysis Comment CULTURE INDICATED Urine Opiates Screen NEG Urine Barbiturates Screen NEG Urine Amphetamines Screen NEG Urine Benzodiazepines Screen NEG Urine Cocaine Screen NEG Urine Cannabinoids Screen NEG Blood Type O POSITIVE Antibody Screen POSITIVE Antigen Identification Leb Antigen - NEGATIVE Direct Antiglobulin Test NEGATIVE (May) Date/Time Procedure Status Source Growth 09/18/16 09:30 Urine Culture Received Urine Random Urine Pending Result Diagram: 09/18/1691409/18/16914 Imaging Last Impressions Head CT 09/18/16906 Signed Impressions: Service Date/Time: Sunday, September 18, 2016 11:07 - CONCLUSION: 1. No acute intracranial abnormality. 2. Small subgaleal hematoma along the right posterior parietal skull. Maikel Pompa MD Chest X-Ray 09/18/16906 Signed Impressions: Service Date/Time: Sunday, September 18, 2016 09:17 - CONCLUSION: No acute disease. Michoacano Mcmullen MD Abdomen/Pelvis CT 09/18/16906 Signed Impressions: Service Date/Time: Sunday, September 18, 2016 11:15 - CONCLUSION: 1. Moderate to large amount of ascites. 2. Nodularity of the liver, splenomegaly, recanalization of the umbilical vein and peritoneal varices anteriorly indicating cirrhosis and portal hypertension. 3. Stable 2 cm low density lesion within the left lobe of the liver. 4. Anasarca. 5. Small right pleural effusion. Maikel Pompa MD Cyst Biopsy Asp-Paracentesis US 09/18/16 0000 Signed Impressions: Service Date/Time: Sunday, September 18, 2016 13:52 - CONCLUSION: Uncomplicated ultrasound guided paracentesis. Saul Roberts MD FACR Septic Shock Reassessment Heart: Regular rate and rhythm Lungs: Clear Skin: Warm Assessment and Plan Assessment and Plan 41-year-old female presenting with increasing shortness of breath and anasarca, status post recent fall Generalized anasarca secondary to liver cirrhosis ran out of diuretics for about a week now. Status post therapeutic paracentesis - 4.9 L of ascitic fluid out Will restart patient on Lasix 40 mg twice a day Aldactone 50 mg twice a day continue on Trental 400 mg daily Fluid restriction 1 L per day Status post recent fall SUSTAINED a right hip and thigh hematoma Symptomatic Acute anemia secondary to bleeding into the right hip and thigh Subgaleal hematoma on the right status post recent fall. Thrombocytopenia from liver cirrhosis Monitor neuro vital signs every shift Patient neurologically stable repeat head CT in 2 days to ensure resolution or stability- sooner if any acute neuro changes No signs of compartment syndrome.-Range of motions intact and good peripheral pulses Will give 2 units RBC transfusion- give Lasix in between unit although her platelet count is near baseline but with right hip Hematoma and subgaleal hematoma will transfuse 1 packed platelets. Consult hematology for recommendation. Hypokalemia.- replaced Recheck BMP in a.m. .patient restarted back on diuretics Alcohol use relapse We'll start patient on Librium 50 mg every 6 PPI for GI prophylaxis Teds for DVT prophylaxis. No chemical prophylaxis due to thrombocytopenia PT consult in a.m. Case management consult in a.m. for safe discharge planning Physician Certification 2 Midnight Certification Type: Admission for Inpatient Services Order for Inpatient Services The services are ordered in accordance with Medicare regulations or non- Medicare payer requirements, as applicable. In the case of services not specified as inpatient-only, they are appropriately provided as inpatient services in accordance with the 2-midnight benchmark. Estimated LOS (days): 3 days is the estimated time the patient will need to remain in the hospital, assuming treatment plan goals are met and no additional complications. Post-Hospital Plan: Not yet determined Reji Seals MD Sep 18, 2016 15:58 Reji Seals MD Sep 18, 2016 15:58 Reji Seals MD Sep 18, 2016 15:58
--- NOTE | 2016-09-18 16:28 | RADRPT ---
EXAM DATE/TIME: 09/18/2016 11:15 [facility] COMPARISON: No previous studies available for comparison. INDICATIONS : Right hip hematoma. RADIATION DOSE: ; Reconstructed from previous dataset, no dose MEDICAL HISTORY : Hypertension. SURGICAL HISTORY : None. ENCOUNTER: Initial ACUITY: 1 day PAIN SCALE: 3/10 LOCATION: Right hip TECHNIQUE: Volumetric scanning of the hip was performed. Using automated exposure control and adjustment of the mA and/or kV according to patient size, radiation dose was kept as low as reasonably achievable to o btain optimal diagnostic quality images. DICOM format image data is available electronically for rev iew and comparison. FINDINGS: There is some asymmetry to the gluteus ely muscles. The right is larger than the left suggesting intramuscular edema or hematoma. There is mild stranding of the subcutaneous fat overlying the right hip. No fracture or dislocation observed. No hemarthrosis appreciated. For the intra-abdominal and in trapelvic contents please see the CT of the abdomen and pelvis reported separately. CONCLUSION: 1. Slight asymmetry of the gluteus ely muscles suggests either edema or intramuscular hematoma fo rmation on the right. There is mild stranding of the subcutaneous fat overlying the right hip suggest ing edema. No hemarthrosis or fracture of the hip. Valentin Bautista Jr., MD on September 18, 2016 at 16:10 Board Certified Radiologist. This report was verified electronically.
[2016-09-18] MEDS ORDERED: PILL SPLITTER OTHER PRN (16:30)
[2016-09-18] MEDS: chlordiazePOXIDE 25 MG CAP PO SCH ×2 (19:25→23:56)
[2016-09-18] MEDS: FUROSEMIDE 40 MG TAB PO SCH (19:26)
[2016-09-18] MEDS ORDERED: ACETAMINOPHEN 325 MG TAB PO PRN (20:45)
[2016-09-18] MEDS: PENTOXIFYLLINE 400 MG CONTROLLED RELEASE TAB PO SCH (21:30)
[2016-09-18] MEDS ORDERED: PHYTONADIONE 5 MG TAB PO ONE (23:00)
[2016-09-19] VITALS (13 sets, daily range): BP systolic 91–138; BP diastolic 42–75; PULSE 101–124; RESP 16–20; TEMP 97.3–99.8; O2SAT 94–100
[2016-09-19] MEDS: ONDANSETRON HCL 4 MG/2 ML VIAL IV PUSH PRN ×2 (02:10→15:27)
[2016-09-19] MEDS: PENTOXIFYLLINE 400 MG CONTROLLED RELEASE TAB PO SCH ×3 (05:56→21:15)
[2016-09-19] MEDS: chlordiazePOXIDE 25 MG CAP PO SCH ×3 (05:56→16:38)
--- NOTE | 2016-09-19 08:03 | HHI.PR ---
Subjective Remarks awake and alert, no nausea or vomiting feels abdomen- "rice" no diarrhea Objective Vitals Vital Signs Date Time Temp Pulse Resp B/P Pulse Ox O2 Delivery O2 Flow Rate FiO2 09/19/16 05:15 99.8 124 18 91/42 97 09/19/16 01:45 99.1 119 20 96/55 95 09/19/16 01:20 99.5 120 20 138/75 97 09/18/16 22:20 99.9 119 20 106/56 98 09/18/16 22:00 100.0 119 18 112/53 99 09/18/16 17:30 97.9 112 18 128/58 97 09/18/16 16:52 117 20 119/65 100 Room Air 09/18/16 16:36 98.9 120 14 114/62 100 Room Air 09/18/16 15:00 122 16 140/68 99 09/18/16 15:00 118 13 117/61 100 Room Air 09/18/16 14:11 98.0 120 16 133/68 96 09/18/16 13:15 123 18 115/65 98 Room Air 09/18/16 09:24 100 Room Air 09/18/16 08:53 98.9 124 14 127/71 100 Room Air 09/18/16 08:41 98.3 132 24 144/67 99 Room Air I/O 09/18/16 09/18/16 09/18/16 09/19/16 09/19/16 09/19/16 07:00 15:00 23:00 07:00 15:00 23:00 Output Total 500 ml Balance -500 ml Output Urine Total 500 ml Result Diagram: 09/18/1691409/18/16914 Imaging Last Impressions Head CT 09/18/16906 Signed Impressions: Service Date/Time: Sunday, September 18, 2016 11:07 - CONCLUSION: 1. No acute intracranial abnormality. 2. Small subgaleal hematoma along the right posterior parietal skull. Maikel Pompa MD Chest X-Ray 09/18/16906 Signed Impressions: Service Date/Time: Sunday, September 18, 2016 09:17 - CONCLUSION: No acute disease. Michoacano Mcmullen MD Abdomen/Pelvis CT 09/18/16906 Signed Impressions: Service Date/Time: Sunday, September 18, 2016 11:15 - CONCLUSION: 1. Moderate to large amount of ascites. 2. Nodularity of the liver, splenomegaly, recanalization of the umbilical vein and peritoneal varices anteriorly indicating cirrhosis and portal hypertension. 3. Stable 2 cm low density lesion within the left lobe of the liver. 4. Anasarca. 5. Small right pleural effusion. Maikel Pompa MD Lower Extremity CT 09/18/16 0000 Signed Impressions: Service Date/Time: Sunday, September 18, 2016 11:15 - CONCLUSION: 1. Slight asymmetry of the gluteus ely muscles suggests either edema or intramuscular hematoma formation on the right. There is mild stranding of the subcutaneous fat overlying the right hip suggesting edema. No hemarthrosis or fracture of the hip. Valentin Bautista Jr., MD Cyst Biopsy Asp-Paracentesis US 09/18/16 0000 Signed Impressions: Service Date/Time: Sunday, September 18, 2016 13:52 - CONCLUSION: Uncomplicated ultrasound guided paracentesis. Saul Roberts MD FACR Objective Remarks awake and alert, oriented x 2 + icterisia lungs no rales regular hythm abdomen- distended but soft, good bowel sounds right hip to thigh- + ecchymoses/hematoma extremities no edema moves all extremities Procedures 09/18- paracentesis 4.9 L out A/P Assessment and Plan 41-year-old female presenting with increasing shortness of breath and anasarca, status post recent fall Generalized anasarca secondary to liver cirrhosis ran out of diuretics for about a week now. Status post therapeutic paracentesis - 4.9 L of ascitic fluid out 09/18 Will restart patient on Lasix 40 mg twice a day- change to IV route Aldactone 50 mg twice a day continue on Trental 400 mg daily Fluid restriction 1 L per day Status post recent fall SUSTAINED a right hip and thigh hematoma Symptomatic Acute anemia secondary to bleeding into the right hip and thigh s/p 2 units RBC 09/18 Subgaleal hematoma on the right status post recent fall. - Thrombocytopenia from liver cirrhosis s/p 1 pack platelet 09/18 Monitor neuro vital signs every shift- stable neruoe exam repeat head CT in 2 days to ensure resolution or stability- sooner if any acute neuro changes No signs of compartment syndrome.-Range of motions intact and good peripheral pulses CBC pending Hematology service consulted Hypokalemia.- replaced Recheck BMP in a.m. .patient restarted back on diuretics Alcohol use relapse We'll start patient on Librium 50 mg every 6 PPI for GI prophylaxis Teds for DVT prophylaxis. No chemical prophylaxis due to thrombocytopenia PT consult today if H and H up Case management consult for DC planning Reji Seals MD Sep 19, 2016 08:03
[2016-09-19] MEDS ORDERED: SPIRONOLACTONE 100 MG TAB PO SCH (09:00)
--- NOTE | 2016-09-19 09:23 | MB ---
cc: SHANNEN BURLESON DATE OF CONSULTATION: 09/18/2016 DATE OF : 1975 REASON FOR CONSULTATION Patient with a history of alcohol abuse, liver cirrhosis, chronic anemia and thrombocytopenia, who presents with hematoma in the right lateral thigh. CHIEF COMPLAINT Swelling in the right lower extremity, abdominal fullness. HISTORY OF PRESENT ILLNESS This is a 41-year-old female who has a history of alcohol abuse, liver cirrhosis, alcoholic liver disease, chronic anemia, thrombocytopenia, history of abdominal ascites requiring paracentesis on multiple occasions. She presents to the [facility] with shortness of breath, generalized weakness, anasarca, increasing abdominal girth and right lateral thigh swelling. She states that she ran out of her diuretics. A few days ago she tripped over an object and hit the ground resulting in swelling in her right thigh. In the emergency department a CT scan of the right lower extremity was completed which showed asymmetry in the gluteus ely muscle suggesting edema and intramuscular hematoma formation. She subsequently also had an abdominal CT scan which confirmed a moderate to large amount of ascites, liver cirrhosis, splenomegaly and peritoneal varices indicating cirrhosis and portal hypertension, anasarca. There was a stable 2 cm low density lesion in the left liver lobe. The patient also had a CT scan of the head on admission which did not show any acute intracranial abnormality. The patient has undergone ultrasound-guided paracentesis with removal of ascitic fluid. On admission the patient's white blood cell count was 5.9, hemoglobin was 6.8, MCV was 110 and platelet count was 77,000. She has been given 2 units of packed red blood cells. Serum chemistries show a high ammonia level of 77, albumin low at 2.3. She had abnormal liver functions with an AST of 187, ALT of 41. Total bilirubin is elevated to 10.3. Her INR is elevated to 1.6 and PTT is 31.0. A UDS screen was completed which was negative for opioids, barbiturates, amphetamines, benzodiazepines, cocaine and cannabinoids but alcohol level was quite high at 204. The patient stated to me that she quit alcohol abuse in August 2016. She has not had any nose bleeds, gum bleeds, petechiae or skin lesions. She does not have any bright red blood per rectum or melena. She was referred to gastroenterology but she has not established care with them. REVIEW OF SYSTEMS A comprehensive 14-point review of systems was completed which is negative except as described in the HPI. PAST MEDICAL HISTORY 1. Alcohol abuse. 2. Alcoholic liver disease. 3. Liver cirrhosis. 4. Splenomegaly. 5. Abdominal varices. 6. Portal hypertension. 7. Diabetes type 2. PAST SURGICAL HISTORY 1. Cholecystectomy. 2. section x3. 3. Appendectomy. MEDICATIONS 1. Folic acid 1 mg p.o. daily. 2. Multivitamins, one tablet p.o. daily. 3. Vitamin-B1 250 mg p.o. daily. 4. Spironolactone 50 mg p.o. daily. 5. Pentoxifylline 400 mg p.o. q.8h. 6. Tylenol 650 p.o. as needed. 7. Lasix 40 mg p.o. daily. 8. Librium 50 mg p.o. q.6h. ALLERGIES She is allergic to MORPHINE. FAMILY HISTORY Family history was reviewed and is noncontributory to this admission. SOCIAL HISTORY Alcohol abuse. No history of tobacco abuse. Denies any illicit drug use. PHYSICAL EXAMINATION VITAL SIGNS: Blood pressure 128/58, pulse 112, temperature 97.9. O2 sats are 97% on room air. GENERAL: Chronically ill-appearing female, icteric, in no apparent distress. HEENT: Pupils are equal, round and reactive to light. EOMI. No oral thrush. No oral lesion. NECK: Supple. No JVD. No bruits. No lymphadenopathy. CHEST: Clear to auscultation bilaterally. CARDIAC: S1, S2, regular rate and rhythm. ABDOMEN: Distended. Enlarged liver and spleen palpated. Mildly tender. No guarding or rebound. Bowel sounds are present. EXTREMITIES: Without any edema. A large right lateral thigh bruise. NEUROLOGIC: No focal deficits. PSYCHIATRIC: Mood and affect is appropriate. LABORATORY WBC 5.9, hemoglobin 6.8, MCV 110, platelet count 77. Serum chemistries were reviewed. IMAGING Imaging was reviewed and discussed in the HPI. ASSESSMENT AND PLAN This is a 41-year-old female with a history of alcohol abuse, liver cirrhosis, alcoholic liver disease, varices, portal hypertension, splenomegaly, who presents to the emergency room with anasarca, generalized weakness and not feeling well. She was found to be severely anemic and has a hematoma. 1. Severe anemia. This is most likely secondary to her liver disease. She probably has esophageal varices that are likely oozing blood resulting in chronic anemia. She is getting two units of packed red blood cells. Will check B12 and folate level. She does have macrocytosis but that it is due to alcohol abuse rather than B12 deficiency but we will check her B12 level. We should obtain a stool hemoccult. The patient is currently being evaluated by GI. We need to make sure that there is no underlying hemolysis. Her total bilirubin is elevated. This is likely due to alcoholic liver disease but we will check bilirubin components, check LDH, haptoglobin and direct May test. Transfuse to keep hemoglobin greater than 7.5. 2. Large hematoma status post fall. She does have underlying coagulopathy due to alcoholic liver disease. She has depletion of coagulation factors and because of this we will check her fibrinogen level. We will transfuse cryoprecipitate for a fibrinogen of less than 150. If her hematoma does get bigger then we will consider giving her FFP. Her INR is 1.6. We will give her vitamin-K to keep INR below 1.5. 3. Thrombocytopenia. This is chronic secondary to alcoholic liver disease, enlarged liver and splenomegaly. I would not recommend any platelet transfusions. 4. Alcoholic liver disease, liver cirrhosis, splenomegaly. The patient continues to drink alcohol. She is advised to seek help and to enroll in an alcohol cessation program. She will need outpatient follow-up with GI to manage her liver disease. Thank you for allowing me to participate in the care of this patient. I will continue to follow this patient along. MD MERY Hanna/BRIANDA /10:45 PM /9:04 AM
[2016-09-19] MEDS: MULTIVITAMINS/MINERALS THERAPEUTIC TAB PO SCH (09:30)
[2016-09-19] MEDS: FOLIC ACID 1 MG TAB PO SCH (09:30)
[2016-09-19] MEDS: THIAMINE HCL 100 MG TAB PO SCH (09:31)
[2016-09-19] MEDS: FUROSEMIDE 40 MG TAB PO SCH ×2 (09:31→18:02)
[2016-09-19 10:12] LABS: HEMATOCRIT 21.1 % (35.0-46.0); MEAN CELL VOLUME 103.6 FL (80.0-100.0); MEAN CORPUSCULAR HEMOGLOBIN 36.9 PG (27.0-34.0); MEAN CORPUSCULAR HGB CONC 35.6 % (32.0-36.0); PLATELET COUNT 30 TH/MM3 (150-450); RED BLOOD COUNT 2.04 MIL/MM3 (4.00-5.30); WHITE BLOOD COUNT 3.9 TH/MM3 (4.0-11.0)
[2016-09-19 10:18] LABS: INTERNATIONAL NORMALIZED RATIO 1.6 RATIO; PROTHROMBIN TIME - PATIENT 18.3 SEC (9.8-11.6)
[2016-09-19 10:27] LABS: REVIEW FLAG FINAL
[2016-09-19 11:03] LABS: BICARBONATE 21.6 MEQ/L (21.0-32.0); POTASSIUM 3.2 MEQ/L (3.5-5.1)
[2016-09-19] MEDS ORDERED: SODIUM CHLOR 0.9% 250 ML INJ 250 ML IV ONE (11:30)
--- NOTE | 2016-09-19 11:39 | PD.ONC.PN ---
Subjective Subjective Remarks Tmax 100F overnight. Patient resting in bed. states she feels very anxious. having difficulty sleeping at night. Objective Data Date Time Temp Pulse Resp B/P Pulse Ox O2 Delivery O2 Flow Rate FiO2 09/19/16 07:50 97.3 115 20 100/54 98 09/19/16 05:15 99.8 124 18 91/42 97 09/19/16 01:45 99.1 119 20 96/55 95 09/19/16 01:20 99.5 120 20 138/75 97 09/18/16 22:20 99.9 119 20 106/56 98 09/18/16 22:00 100.0 119 18 112/53 99 09/18/16 17:30 97.9 112 18 128/58 97 09/18/16 16:52 117 20 119/65 100 Room Air 09/18/16 16:36 98.9 120 14 114/62 100 Room Air 09/18/16 15:00 122 16 140/68 99 09/18/16 15:00 118 13 117/61 100 Room Air 09/18/16 14:11 98.0 120 16 133/68 96 09/18/16 13:15 123 18 115/65 98 Room Air Result Diagram: 09/19/16 0820 09/19/16 0820 Laboratory Results Laboratory Tests Test 09/18/16 09/19/16 15:38 08:20 Blood Bank Comment White Blood Count 3.9 TH/MM3 Red Blood Count 2.04 MIL/MM3 Hemoglobin 7.5 GM/DL Hematocrit 21.1 % Mean Corpuscular Volume 103.6 FL Mean Corpuscular Hemoglobin 36.9 PG Mean Corpuscular Hemoglobin 35.6 % Concent Red Cell Distribution Width 22.0 % Platelet Count 30 TH/MM3 Mean Platelet Volume 6.9 FL Haptoglobin LESS THAN 10 MG/DL Prothrombin Time 18.3 SEC Prothromb Time International 1.6 RATIO Ratio Fibrinogen 108 mg/dL Sodium Level 136 MEQ/L Potassium Level 3.2 MEQ/L Chloride Level 104 MEQ/L Carbon Dioxide Level 21.6 MEQ/L Anion Gap 10 MEQ/L Blood Urea Nitrogen 9 MG/DL Creatinine 0.72 MG/DL Estimat Glomerular Filtration 90 ML/MIN Rate Random Glucose 173 MG/DL Calcium Level 7.5 MG/DL Lactate Dehydrogenase 395 U/L Blood Type O POSITIVE Direct Antiglobulin Test NEGATIVE (Virgil) Culture Results Microbiology Date/Time Procedure Status Source Growth 09/18/16 09:30 Urine Culture Received Urine Random Urine Pending Administered Medications Medications (Trade) Dose Ordered Sig/Ric Route PRN Reason Start Time Stop Time Status Last Admin Dose Admin Folic Acid (Folate) 1 mg DAILY PO 09/19/16 09:00 09/19/16 09:30 Furosemide (Lasix) 40 mg DAILY@09,18 PO 09/18/16 18:00 09/19/16 09:31 Pentoxifylline (TRENtal SR) 400 mg Q8HR PO 09/18/16 22:00 09/19/16 05:56 Multivitamins/ Minerals Therapeutic (Theragran M Tab) 1 tab DAILY PO 09/19/16 09:00 09/19/16 09:30 Thiamine HCl (Vitamin B1) 250 mg DAILY PO 09/19/16 09:00 09/19/16 09:31 Chlordiazepoxide (Librium) 50 mg Q6HR PO 09/18/16 18:00 09/19/16 05:56 Acetaminophen (Tylenol) 650 mg ONCE PRN PO pain > 5 09/18/16 20:45 09/19/16 23:59 09/18/16 21:57 Ondansetron HCl (Zofran Inj) 4 mg Q6HR PRN IV PUSH NAUSEA OR VOMITING 09/19/16 01:45 09/19/16 02:10 Objective Remarks GENERAL: jaundiced chronically ill appearing female supine in bed. SKIN: Warm and dry. scattered bruises on torso and extremities. HEAD: Normocephalic. EYES: No injection or drainage. NECK: Supple, trachea midline. CARDIOVASCULAR: Regular rate and rhythm RESPIRATORY: Breath sounds equal bilaterally. No accessory muscle use. GASTROINTESTINAL: Abdomen soft, non-tender, nondistended. EXTREMITIES: No cyanosis. large hematoma tracking along right thigh and buttock. NEUROLOGICAL: No obvious focal deficit. Awake, alert, and oriented x3. Assessment/Plan Problem List: (1) Macrocytic anemia Status: Acute Plan: --most likely secondary to her liver disease. --probably has esophageal varices that are likely oozing blood resulting in chronic anemia. --macrocytosis is due to alcohol abuse rather than B12 deficiency --B12/folate pending --stool Hemoccult pending. --LDH elevated, haptoglobin low, will order bilirubin fractionation today --virgil test negative (2) Thrombocytopenia Status: Acute Plan: -- chronic secondary to alcoholic liver disease, acute component d/t bleeding --enlarged liver and splenomegaly. --platelet transfusions only if actively bleeding. (3) Hematoma Status: Acute Plan: --Large hematoma status post fall. --give her vitamin-K to keep INR below 1.5. --FFP as needed (4) Cirrhosis of liver Status: Acute Plan: --Alcoholic liver disease, liver cirrhosis, splenomegaly. --will need GI to manage her liver disease. (5) Coagulopathy Status: Acute Plan: --d/t liver failure --FFP prn --Vitamin K 5mg PO daily to keep INR<1.5 Assessment 41y/o female admitted with dyspnea, weakness anasarca found to be severely anemic with hematoma. history of alcohol abuse, liver cirrhosis, alcoholic liver disease, chronic anemia, thrombocytopenia, history of abdominal ascites requiring paracentesis on multiple occasions. She Plan 1. 1 unit pRBC 2. 2 units FFP 3. consult GI for ?GIB + liver failure 4. check H/H this afternoon. Attending Statement The exam, history, and the medical decision-making described in the above note were completed with the assistance of the mid-level provider. I reviewed and agree with the findings presented. I attest that I had a [id number] encounter with the patient on the same day, and personally performed and documented my assessment and findings in the medical record. enlarging hematoma and severe anemia with underlying coagulopathy due to liver disease Transfuse 2 units of FFP 1 unit of pRBC Transfuse platelets to keep above 20,000 Vitamin K replacement GI evaluation for EGD Check daily fibrinogen and transfuse to keep fibrinogen > 150 Both direct and indirect bili elevated due to liver disease-- +/-? low grade hemolysis. Haptoglobin low due to liver disease discussed with patient and her d/w Yaima Hernandez Sep 19, 2016 11:39 Jordan Olivera MD Sep 19, 2016 23:08
[2016-09-19 13:01] LABS: INDIRECT BILIRUBIN 5.7 MG/DL (0.0-0.8); TOTAL BILIRUBIN ADULT 10.4 MG/DL (0.2-1.0)
--- NOTE | 2016-09-19 13:18 | PD.CONS ---
HPI History of Present Illness This is a 41 year old female with hx cirrhosis, portal HTN, ETOH abuse who presented with complaints of pain walking s/p fall, abdominal swelling and lower leg edema. She fell 8 days ago and has hematoma on right thigh and buttock, says its worsening. About 4 days ago she started noticing her abdomen becoming tighter and larger, her legs were welling. She has abd discomfort from the tightness, intermittent nausea. She was found to be anemic with Hgb 6.8 and she reports 3d ago starting to have black loose stools. No red blood in stool or hematemesis. She denies drinking recently except for relapse on 08-29, on this admission her blood ETOH was 204. She says she has been c/w meds lactulose, trental, diuretics, although per EMR she did stop taking diuretics for a week. She had EGD 07/05/16 that showed portal HTN, no varices, hiatal hernia. On last admission in July for PNA and anasarca, she was to f/u with tertiary center for liver transplant. (Blanka Reynoso) [facility] Past Medical History Alcoholic liver cirrhosis History of alcohol use was doing well until August for had a relapse. Diabetes type 2 not on any medications Portal hypertension Past Surgical History Gallbladder surgery 3 sections History of explained overlap at 18 years old -appendectomy done (Blanka Reynoso) Coded Allergies: Morphine (Verified Adverse Reaction, Mild, Nausea/Vomiting, 09/18/16) Family History Noncontributory Social History No smoking history Admits to heavy alcohol use in the past and had a relapse August 29 (Blanka Reynoso) Review of Systems Constitutional: DENIES: Fever Ears, nose, mouth, throat: DENIES: Hearing loss Respiratory: DENIES: Hemoptysis Gastrointestinal: COMPLAINS OF: Abdominal pain, Black stools, Diarrhea, Nausea , Swelling of Abdomen, DENIES: Bloody stools, Constipation, Vomiting, Hematemesis Genitourinary: DENIES: Hematuria Musculoskeletal: DENIES: Joint Swelling Integumentary: COMPLAINS OF: Jaundice Hematologic/lymphatic: COMPLAINS OF: Bruising Neurologic: DENIES: Paresthesias Psychiatric: DENIES: Confusion (Blanka Reynoso) GI Exam Vitals I&O Vital Signs Date Time Temp Pulse Resp B/P Pulse Ox O2 Delivery O2 Flow Rate FiO2 09/19/16 11:43 97.5 110 20 116/57 98 09/19/16 07:50 97.3 115 20 100/54 98 09/19/16 05:15 99.8 124 18 91/42 97 09/19/16 01:45 99.1 119 20 96/55 95 09/19/16 01:20 99.5 120 20 138/75 97 09/18/16 22:20 99.9 119 20 106/56 98 09/18/16 22:00 100.0 119 18 112/53 99 09/18/16 17:30 97.9 112 18 128/58 97 09/18/16 16:52 117 20 119/65 100 Room Air 09/18/16 16:36 98.9 120 14 114/62 100 Room Air 09/18/16 15:00 122 16 140/68 99 09/18/16 15:00 118 13 117/61 100 Room Air 09/18/16 14:11 98.0 120 16 133/68 96 09/18/16 13:15 123 18 115/65 98 Room Air I/O 09/18/16 09/18/16 09/18/16 09/19/16 09/19/16 09/19/16 07:00 15:00 23:00 07:00 15:00 23:00 Output Total 500 ml Balance -500 ml Output Urine Total 500 ml Imaging Last [address] 09/18/16906 Signed Impressions: Service Date/Time: Sunday, September 18, 2016 11:07 - CONCLUSION: 1. No acute intracranial abnormality. 2. Small subgaleal hematoma along the right posterior parietal skull. Maikel Pompa MD Chest X-Ray 09/18/16906 Signed Impressions: Service Date/Time: Sunday, September 18, 2016 09:17 - CONCLUSION: No acute disease. Michoacano Mcmullen MD Abdomen/Pelvis CT 09/18/16906 Signed Impressions: Service Date/Time: Sunday, September 18, 2016 11:15 - CONCLUSION: 1. Moderate to large amount of ascites. 2. Nodularity of the liver, splenomegaly, recanalization of the umbilical vein and peritoneal varices anteriorly indicating cirrhosis and portal hypertension. 3. Stable 2 cm low density lesion within the left lobe of the liver. 4. Anasarca. 5. Small right pleural effusion. Maikel Pompa MD Lower Extremity CT 09/18/16 0000 Signed Impressions: Service Date/Time: Sunday, September 18, 2016 11:15 - CONCLUSION: 1. Slight asymmetry of the gluteus ely muscles suggests either edema or intramuscular hematoma formation on the right. There is mild stranding of the subcutaneous fat overlying the right hip suggesting edema. No hemarthrosis or fracture of the hip. Valentin Bautista Jr., MD Cyst Biopsy Asp-Paracentesis US 09/18/16 0000 Signed Impressions: Service Date/Time: Sunday, September 18, 2016 13:52 - CONCLUSION: Uncomplicated ultrasound guided paracentesis. Saul Roberts MD FACR Laboratory Test 09/18/16 09/19/16 09/19/16 15:38 08:20 11:27 Blood Bank Comment White Blood Count 3.9 TH/MM3 Red Blood Count 2.04 MIL/MM3 Hemoglobin 7.5 GM/DL Hematocrit 21.1 % Mean Corpuscular Volume 103.6 FL Mean Corpuscular Hemoglobin 36.9 PG Mean Corpuscular Hemoglobin 35.6 % Concent Red Cell Distribution Width 22.0 % Platelet Count 30 TH/MM3 Mean Platelet Volume 6.9 FL Haptoglobin LESS THAN 10 MG/DL Prothrombin Time 18.3 SEC Prothromb Time International 1.6 RATIO Ratio Fibrinogen 108 mg/dL Sodium Level 136 MEQ/L Potassium Level 3.2 MEQ/L Chloride Level 104 MEQ/L Carbon Dioxide Level 21.6 MEQ/L Anion Gap 10 MEQ/L Blood Urea Nitrogen 9 MG/DL Creatinine 0.72 MG/DL Estimat Glomerular Filtration 90 ML/MIN Rate Random Glucose 173 MG/DL Calcium Level 7.5 MG/DL Total Bilirubin 10.4 MG/DL Direct Bilirubin 4.7 MG/DL Indirect Bilirubin 5.7 MG/DL Aspartate Amino Transf 135 U/L (AST/SGOT) Alanine Aminotransferase 34 U/L (ALT/SGPT) Lactate Dehydrogenase 395 U/L Total Protein 5.4 GM/DL Albumin 2.1 GM/DL Blood Type O POSITIVE Direct Antiglobulin Test NEGATIVE (May) Crossmatch Leukocyte-Reduced Red Blood Cells Date/Time Procedure Status Source Growth 09/18/16 09:30 Urine Culture Received Urine Random Urine Pending Physical Examination HEENT: PERRL; normocephalic; atraumatic;+ icterus CHEST: CTA CARDIAC: tachy, +murmur ABDOMEN: Soft, distended, dull, mild TTP diffusely, no hepatosplenomegaly; bowel sounds are present in all four quadrants. EXTREMITIES: No clubbing, cyanosis, + edema lower legs, ecchymosis right posterior thigh & buttock SKIN: + jaundice HAT BLOCK MAKER: No focal deficits; alert and oriented times three. (Blanka Reynoso) Assessment and Plan Plan ASSESSMENT - anemia - Hgb 6.8 on admission. pt reports 3d of black loose stools, no priscilla blood or hematemesis. EGD 07/05/16 that showed portal HTN, no varices, hiatal hernia. hemoccult pending - elevated LFTs, jaundice, ascites - hx cirrhosis, likely 2/[address] 09-18-16-- > moderate to large amt ascites, nodularity liver, splenomegaly, portal HTN, stable 2cm lesion left lobe liver, anasarca. s/p paracentesis with 4.9L removed. of note her blood ETOH was 204 on admission, she says she last drank 08/29. - coagulopathy - INR 1.6. vitamin K, FFP per hematology - hematoma right leg PLAN - EGD tomorrow - obtain consents - NPO after midnight - low sodium diet - fluid restriction - continue pentoxifylline - continue diuretics - continue lactulose - monitor labs - supportive care This pt seen by myself and Dr Stover and this note is written on his behalf. ( Blanka Reynoso) Physician Comments Patient seen and examined Agree with above Continue with current supportive care Monitor labs Plan for an EGD tomorrow Patient needs to stop alcohol intake Patient has acute alcoholic hepatitis Discriminant function is greater than 32 and as such patient prognosis is guarded We'll need to start patient on pentoxifylline Prednisolone at this point is a relative contraindication with possible GI bleed (Rick Stover MD) Blanka Reynoso Sep 19, 2016 13:17 Rick Stover MD Sep 20, 2016 11:42
[2016-09-19] MEDS: PHYTONADIONE 5 MG TAB PO SCH (13:35)
[2016-09-19] MEDS: SPIRONOLACTONE 50 MG TAB PO SCH ×2 (13:35→18:02)
[2016-09-19 14:32] LABS: HEMATOCRIT 21.2 % (35.0-46.0)
[2016-09-19 14:49] LABS: REVIEW FLAG FINAL
[2016-09-19] MEDS ORDERED: POTASSIUM CHLORIDE 20 MEQ CONTROLLED RELEASE TAB PO ONE (16:45)
[2016-09-19] MEDS ORDERED: POTASSIUM CHLORIDE 10 MEQ CAP PO SCH (21:00)
[2016-09-20] VITALS (10 sets, daily range): BP systolic 98–118; BP diastolic 49–60; PULSE 93–110; RESP 16–20; TEMP 96.1–98.2; O2SAT 93–100
[2016-09-20] MEDS: chlordiazePOXIDE 25 MG CAP PO SCH ×4 (00:11→17:54)
[2016-09-20] MEDS: PENTOXIFYLLINE 400 MG CONTROLLED RELEASE TAB PO SCH ×4 (05:53→17:55)
[2016-09-20 07:51] LABS: AUTOMATED NEUTROPHIL # 2.4 TH/MM3 (1.8-7.7); BASOPHIL % 0.7 % (0.0-2.0); EOSINOPHIL # 0.1 TH/MM3 (0-0.4); EOSINOPHIL % 2.1 % (0.0-4.0); HEMATOCRIT 21.3 % (35.0-46.0); LYMPH % 26.9 % (9.0-44.0); MEAN CELL VOLUME 101.2 FL (80.0-100.0); MEAN CORPUSCULAR HEMOGLOBIN 36.4 PG (27.0-34.0); MONO % 6.5 % (0.0-8.0); NEUT % 63.8 % (16.0-70.0); PLATELET COUNT 30 TH/MM3 (150-450); RED BLOOD COUNT 2.11 MIL/MM3 (4.00-5.30); RED CELL DISTRIBUTION WIDTH 23.3 % (11.6-17.2); WHITE BLOOD COUNT 3.7 TH/MM3 (4.0-11.0)
[2016-09-20 07:57] LABS: APTT (PATIENT) 28.9 SEC (24.3-30.1); INTERNATIONAL NORMALIZED RATIO 1.6 RATIO; PROTHROMBIN TIME - PATIENT 18.3 SEC (9.8-11.6)
[2016-09-20 08:05] LABS: HEMO FLAGS AUTO DIFF
[2016-09-20 08:15] LABS: BICARBONATE 25.4 MEQ/L (21.0-32.0)
[2016-09-20] MEDS: SPIRONOLACTONE 50 MG TAB PO SCH ×2 (08:18→18:04)
[2016-09-20 08:19] LABS: INDIRECT BILIRUBIN 5.2 MG/DL (0.0-0.8); TOTAL BILIRUBIN ADULT 10.1 MG/DL (0.2-1.0)
[2016-09-20] MEDS: FUROSEMIDE 40 MG TAB PO SCH ×2 (08:19→17:54)
[2016-09-20] MEDS: PHYTONADIONE 5 MG TAB PO SCH (08:20)
[2016-09-20 08:43] LABS: PLATELET ESTIMATE SMEAR LOW (NORMAL); PLATELET MORPHOLOGY NORMAL (NORMAL); SCAN/DIFF AUTO DIFF CONFIRMED; SPHEROCYTES 1+ (NORMAL); TEARDROP RBCS 1+ (NORMAL)
[2016-09-20] MEDS ORDERED: PROPOFOL 200 MG/20 ML AMP IV ONE ×2 (11:31)
--- NOTE | 2016-09-20 11:47 | PD.PROCEDR ---
GI Procedure REFERRING PHYSICIAN Darren PROCEDURE PERFORMED EGD with biopsy INDICATION FOR PROCEDURE Anemia, GI bleed PROCEDURE: The procedure, risks and benefits were discussed with Ms. Saucedo and informed consent was obtained. Anesthesia sedated her with Diprivan. She was placed in the left lateral decubitus position. EGD: The Pentax videoscope was introduced through the oropharynx and advanced to the second portion of the duodenum under direct visualization. Retroflexion was performed in the stomach. FINDINGS: The esophagus this appeared to be unremarkable and within normal limits no esophageal varices The stomach the gastric mucosa appeared to be diffusely edematous with a cobblestone appearance consistent with portal gastropathy no gastric varices no blood or bleeding antral biopsies were taken for further evaluation The duodenum there were several superficial ulcerations in the duodenal bulb and descending duodenum no visible vessel no blood or bleeding ESTIMATED BLOOD LOSS: None SPECIMENS REMOVED: Antral biopsy COMPLICATIONS: None IMPRESSION: Portal gastropathy moderate Superficial duodenal ulcerations PLAN: Await biopsy Supportive care Monitor labs PPI Avoid alcohol and NSAIDs and aspirin Rick Stover MD Sep 20, 2016 11:47
--- NOTE | 2016-09-20 12:14 | HHI.PR ---
Subjective Remarks awake and alert, no complains had egd done today Objective Vitals Vital Signs Date Time Temp Pulse Resp B/P Pulse Ox O2 Delivery O2 Flow Rate FiO2 09/20/16 11:50 97 16 101/54 96 09/20/16 11:46 97 16 103/54 95 09/20/16 11:40 97.9 96 16 101/54 94 09/20/16 07:50 97.2 101 20 100/53 95 09/20/16 04:00 98.2 102 16 98/56 96 09/20/16 02:30 97.5 101 16 103/52 97 09/19/16 23:44 97.8 103 16 101/50 97 09/19/16 23:30 98.1 108 16 100/50 96 09/19/16 20:00 98.6 101 16 114/60 98 09/19/16 18:13 98.4 109 18 98/51 95 09/19/16 18:03 98.7 111 20 102/52 94 09/19/16 15:55 97.6 103 20 96/50 100 09/19/16 15:49 98.2 101 20 106/61 98 09/19/16 15:32 98.4 102 20 98/52 98 I/O 09/19/16 09/19/16 09/19/16 09/20/16 09/20/16 09/20/16 07:00 15:00 23:00 07:00 15:00 23:00 Intake Total 120 ml 390 ml 0 ml 300 ml Output Total 300 ml Balance -180 ml 390 ml 0 ml 300 ml Intake Oral 120 ml 90 ml 0 ml IV Total 300 ml FFP 300 ml Output Urine Total 300 ml # Voids 0 1 # Bowel Movements 2 0 0 Result Diagram: 09/20/1628 09/20/16 0658 Imaging Last Impressions Head CT 09/18/16906 Signed Impressions: Service Date/Time: Sunday, September 18, 2016 11:07 - CONCLUSION: 1. No acute intracranial abnormality. 2. Small subgaleal hematoma along the right posterior parietal skull. Maikel Pompa MD Chest X-Ray 09/18/16906 Signed Impressions: Service Date/Time: Sunday, September 18, 2016 09:17 - CONCLUSION: No acute disease. Michoacano Mcmullen MD Abdomen/Pelvis CT 09/18/16906 Signed Impressions: Service Date/Time: Sunday, September 18, 2016 11:15 - CONCLUSION: 1. Moderate to large amount of ascites. 2. Nodularity of the liver, splenomegaly, recanalization of the umbilical vein and peritoneal varices anteriorly indicating cirrhosis and portal hypertension. 3. Stable 2 cm low density lesion within the left lobe of the liver. 4. Anasarca. 5. Small right pleural effusion. Maikel Pompa MD Lower Extremity CT 09/18/16 0000 Signed Impressions: Service Date/Time: Sunday, September 18, 2016 11:15 - CONCLUSION: 1. Slight asymmetry of the gluteus ely muscles suggests either edema or intramuscular hematoma formation on the right. There is mild stranding of the subcutaneous fat overlying the right hip suggesting edema. No hemarthrosis or fracture of the hip. Valentin Bautista Jr., MD Cyst Biopsy Asp-Paracentesis US 09/18/16 0000 Signed Impressions: Service Date/Time: Sunday, September 18, 2016 13:52 - CONCLUSION: Uncomplicated ultrasound guided paracentesis. Saul Roberts MD FACR Objective Remarks awake and alert, oriented x 2 + icterisia lungs no rales regular rhythm abdomen- distended but soft, good bowel sounds, + fluid wave right hip to thigh- + ecchymoses/hematoma- decreasesing- softer extremities no edema moves all extremities Procedures 09/18- paracentesis 4.9 L out 09/20- EGD Portal gastropathy moderate Superficial duodenal ulcerations A/P Assessment and Plan 41-year-old female presenting with increasing shortness of breath and anasarca, status post recent fall Generalized anasarca secondary to liver cirrhosis ran out of diuretics for about a week now. Status post therapeutic paracentesis - 4.9 L of ascitic fluid out 09/18 Lasix 40 mg twice a day- Aldactone 50 mg twice a day continue on Trental 400 mg daily Fluid restriction 1 L per day monitor - repeat paracentesis if needed Status post recent fall SUSTAINED a right hip and thigh hematoma. PT consult Symptomatic Acute anemia secondary to bleeding into the right hip and thigh s/p 2 units RBC 09/18 Subgaleal hematoma on the right status post recent fall. - Thrombocytopenia from liver cirrhosis s/p 1 pack platelet 09/18 Monitor neuro vital signs every shift- stable neruoe exam repeat head CT in 2- 3 days to ensure resolution or stability- sooner if any acute neuro changes No signs of compartment syndrome.-Range of motions intact and good peripheral pulses CBC stble Hematology service ff S/P EGD- portal gastropathy with duodenal ulcer 09/20 PPI daily Hypokalemia.- replaced IV bolus 20 meq KCL po bid Recheck BMP in a.m. .patient restarted back on diuretics Alcohol use relapse on Librium 50 mg every 8- taper to q 12 Teds for DVT prophylaxis. No chemical prophylaxis due to thrombocytopenia PT daily Case management consult for DC planning Reji Seals MD Sep 20, 2016 12:13
[2016-09-20] MEDS ORDERED: SODIUM CHLOR 0.9% 250 ML INJ 250 ML IV ONE ×2 (12:45→13:00)
--- NOTE | 2016-09-20 12:55 | PD.ONC.PN ---
Subjective Subjective Remarks Afebrile overnight. Patient states she feels like her hematoma is improving. She wants to have her peritoneal ascites drained again. Objective Data Date Time Temp Pulse Resp B/P Pulse Ox O2 Delivery O2 Flow Rate FiO2 09/20/16 12:10 97.1 110 20 118/56 100 09/20/16 11:50 97 16 101/54 96 09/20/16 11:46 97 16 103/54 95 09/20/16 11:40 97.9 96 16 101/54 94 09/20/16 07:50 97.2 101 20 100/53 95 09/20/16 04:00 98.2 102 16 98/56 96 09/20/16 02:30 97.5 101 16 103/52 97 09/19/16 23:44 97.8 103 16 101/50 97 09/19/16 23:30 98.1 108 16 100/50 96 09/19/16 20:00 98.6 101 16 114/60 98 09/19/16 18:13 98.4 109 18 98/51 95 09/19/16 18:03 98.7 111 20 102/52 94 09/19/16 15:55 97.6 103 20 96/50 100 09/19/16 15:49 98.2 101 20 106/61 98 09/19/16 15:32 98.4 102 20 98/52 98 09/20/16 09/20/16 09/20/16 07:00 15:00 23:00 Intake Total 0 ml 300 ml Balance 0 ml 300 ml Result Diagram: 09/20/16 0628 09/20/16 0658 Laboratory Results Laboratory Tests Test 09/19/16 09/20/16 09/20/16 14:00 06:28 06:58 Hemoglobin 7.7 GM/DL 7.7 GM/DL Hematocrit 21.2 % 21.3 % White Blood Count 3.7 TH/MM3 Red Blood Count 2.11 MIL/MM3 Mean Corpuscular Volume 101.2 FL Mean Corpuscular Hemoglobin 36.4 PG Mean Corpuscular Hemoglobin 36.0 % Concent Red Cell Distribution Width 23.3 % Platelet Count 30 TH/MM3 Mean Platelet Volume 8.1 FL Neutrophils (%) (Auto) 63.8 % Lymphocytes (%) (Auto) 26.9 % Monocytes (%) (Auto) 6.5 % Eosinophils (%) (Auto) 2.1 % Basophils (%) (Auto) 0.7 % Neutrophils # (Auto) 2.4 TH/MM3 Lymphocytes # (Auto) 1.0 TH/MM3 Monocytes # (Auto) 0.2 TH/MM3 Eosinophils # (Auto) 0.1 TH/MM3 Basophils # (Auto) 0.0 TH/MM3 CBC Comment AUTO DIFF Differential Comment AUTO DIFF CONFIRMED Platelet Estimate LOW Platelet Morphology Comment NORMAL Spherocytes 1+ Tear Drop Cells 1+ Prothrombin Time 18.3 SEC Prothromb Time International 1.6 RATIO Ratio Activated Partial 28.9 SEC Thromboplast Time Fibrinogen 113 mg/dL Sodium Level 138 MEQ/L Potassium Level 3.0 MEQ/L Chloride Level 104 MEQ/L Carbon Dioxide Level 25.4 MEQ/L Anion Gap 9 MEQ/L Blood Urea Nitrogen 9 MG/DL Creatinine 0.68 MG/DL Estimat Glomerular Filtration 96 ML/MIN Rate Random Glucose 87 MG/DL Calcium Level 7.8 MG/DL Total Bilirubin 10.1 MG/DL Direct Bilirubin 4.9 MG/DL Indirect Bilirubin 5.2 MG/DL Aspartate Amino Transf 105 U/L (AST/SGOT) Alanine Aminotransferase 30 U/L (ALT/SGPT) Alkaline Phosphatase 98 U/L Total Protein 5.3 GM/DL Albumin 2.2 GM/DL Culture Results Microbiology Date/Time Procedure Status Source Growth 09/18/16 09:30 Urine Culture - Final Complete Urine Random Urine 50-100,000 CFU/ML MIXED GRAM POSITIVE... 09/19/16 15:17 Stool Occult Blood (DARREN) - Final Complete Stool Stool HEMOCCULT NEGATIVE Administered Medications Medications (Trade) Dose Ordered Sig/Ric Route PRN Reason Start Time Stop Time Status Last Admin Dose Admin Folic Acid (Folate) 1 mg DAILY PO 09/19/16 09:00 09/19/16 09:30 Furosemide (Lasix) 40 mg DAILY@,18 PO 09/18/16 18:00 09/20/16 08:19 Pentoxifylline (TRENtal SR) 400 mg Q8HR PO 09/18/16 22:00 09/20/16 08:18 Multivitamins/ Minerals Therapeutic (Theragran M Tab) 1 tab DAILY PO 09/19/16 09:00 09/19/16 09:30 Thiamine HCl (Vitamin B1) 250 mg DAILY PO 09/19/16 09:00 09/19/16 09:31 Chlordiazepoxide (Librium) 50 mg Q6HR PO 09/18/16 18:00 09/20/16 05:52 Spironolactone (Aldactone) 50 mg DAILY@,18 PO 09/19/16 09:00 09/20/16 08:18 Ondansetron HCl (Zofran Inj) 4 mg Q6HR PRN IV PUSH NAUSEA OR VOMITING 09/19/16 01:45 09/19/16 15:27 Phytonadione (Mephyton) 5 mg DAILY PO 09/19/16 13:00 09/19/16 13:35 Oxycodone HCl (Roxicodone) 5 mg Q6H PRN PO PAIN SCALE 4 TO 10 09/19/16 16:30 09/20/16 08:20 Objective Remarks GENERAL: Chronically ill appearing female lying in bed, resting. SKIN: Warm and dry. HEAD: Normocephalic. EYES: No injection or drainage. NECK: Supple, trachea midline. CARDIOVASCULAR: Regular rate and rhythm RESPIRATORY: Breath sounds equal bilaterally. No accessory muscle use. GASTROINTESTINAL: Abdomen distended with ascites. EXTREMITIES: No cyanosis. hematoma along right thigh and buttock, does not appear significantly changed from yesterday. NEUROLOGICAL: No obvious focal deficit. Awake, alert, and oriented x3. moving all extremities. Assessment/Plan Problem List: (1) Macrocytic anemia Status: Acute Plan: --most likely secondary to her liver disease. --probably has esophageal varices that are likely oozing blood resulting in chronic anemia. --macrocytosis is due to alcohol abuse rather than B12 deficiency --B12/folate WNL --LDH elevated, haptoglobin low, indirect and direct bili elevated. --virgil test negative --EGD on 09/20 showed Portal gastropathy moderate and Superficial duodenal ulcerations (2) Thrombocytopenia Status: Acute Plan: -- chronic secondary to alcoholic liver disease, acute component d/t bleeding --enlarged liver and splenomegaly. --Transfuse platelets to keep above 20,000 --Check daily fibrinogen and transfuse to keep fibrinogen > 150 (3) Hematoma Status: Acute Plan: --Large hematoma status post fall. --give her vitamin-K to keep INR below 1.5. --FFP as needed (4) Cirrhosis of liver Status: Acute Plan: --Alcoholic liver disease, liver cirrhosis, splenomegaly. --GI following. (5) Coagulopathy Status: Acute Plan: --d/t liver failure --FFP prn --Vitamin K 5mg PO daily to keep INR<1.5 Assessment 41y/o female admitted with dyspnea, weakness anasarca found to be severely anemic with hematoma. history of alcohol abuse, liver cirrhosis, alcoholic liver disease, chronic anemia, thrombocytopenia, history of abdominal ascites requiring paracentesis on multiple occasions. She Plan 1. 1 unit pRBC 2. 1 unit cryo for fibrinogen <150. 3. check H/H after blood transfusion. Attending Statement The exam, history, and the medical decision-making described in the above note were completed with the assistance of the mid-level provider. I reviewed and agree with the findings presented. I attest that I had a [id number] encounter with the patient on the same day, and personally performed and documented my assessment and findings in the medical record. Hematoma stable Hb low agai today despite recent pRBC transfusion Transfuse additional Unit today Low fibrinogen, give 2 units of cryoprecipitate Coagulopathic due to liver disease-- daily Vitamin K--additional dose of Vitamin K supportive care GI evaluation worsening ascites d/w Yaima Hernandez Sep 20, 2016 12:55 Jordan Olivera MD Sep 20, 2016 23:38
[2016-09-20] MEDS ORDERED: POTASSIUM CHLOR 20 MEQ PREMIX 100 ML IV ONE (13:00)
[2016-09-20] MEDS: THIAMINE HCL 100 MG TAB PO SCH (13:16)
[2016-09-20] MEDS: FOLIC ACID 1 MG TAB PO SCH (13:16)
[2016-09-20] MEDS: POTASSIUM CHLORIDE 10 MEQ CAP PO SCH ×2 (13:18→19:49)
[2016-09-20] MEDS: MULTIVITAMINS/MINERALS THERAPEUTIC TAB PO SCH (13:28)
[2016-09-20] MEDS: PANTOPRAZOLE SOD 40 MG DELAYED RELEASE TAB PO SCH (16:22)
[2016-09-20 19:30] LABS: HEMATOCRIT 22.7 % (35.0-46.0)
[2016-09-20 19:32] LABS: REVIEW FLAG FINAL
[2016-09-20] MEDS ORDERED: PHYTONADIONE 5 MG TAB PO ONE (23:45)
[2016-09-21] VITALS (8 sets, daily range): BP systolic 92–105; BP diastolic 52–60; PULSE 95–106; RESP 16–19; TEMP 96.3–98.1; O2SAT 94–100
[2016-09-21] MEDS: chlordiazePOXIDE 25 MG CAP PO SCH ×5 (06:17→23:57)
[2016-09-21 07:06] LABS: APTT (PATIENT) 31.5 SEC (24.3-30.1); INTERNATIONAL NORMALIZED RATIO 1.7 RATIO; PROTHROMBIN TIME - PATIENT 18.7 SEC (9.8-11.6)
[2016-09-21 07:25] LABS: AUTOMATED NEUTROPHIL # 2.4 TH/MM3 (1.8-7.7); BASOPHIL % 0.3 % (0.0-2.0); EOSINOPHIL # 0.1 TH/MM3 (0-0.4); EOSINOPHIL % 1.9 % (0.0-4.0); LYMPH % 22.3 % (9.0-44.0); LYMPHOCYTE # 0.8 TH/MM3 (1.0-4.8); MEAN CELL VOLUME 102.9 FL (80.0-100.0); MEAN CORPUSCULAR HEMOGLOBIN 36.8 PG (27.0-34.0); MEAN CORPUSCULAR HGB CONC 35.8 % (32.0-36.0); MONO % 6.4 % (0.0-8.0); NEUT % 69.1 % (16.0-70.0); PLATELET COUNT 28 TH/MM3 (150-450); RED BLOOD COUNT 2.24 MIL/MM3 (4.00-5.30); RED CELL DISTRIBUTION WIDTH 24.4 % (11.6-17.2); WHITE BLOOD COUNT 3.5 TH/MM3 (4.0-11.0)
[2016-09-21 07:39] LABS: BICARBONATE 22.5 MEQ/L (21.0-32.0); POTASSIUM 3.6 MEQ/L (3.5-5.1)
[2016-09-21 07:42] LABS: TOTAL BILIRUBIN ADULT 8.6 MG/DL (0.2-1.0)
[2016-09-21 07:57] LABS: HEMO FLAGS AUTO DIFF
[2016-09-21] MEDS: SPIRONOLACTONE 50 MG TAB PO SCH ×2 (09:05→16:47)
[2016-09-21] MEDS: MULTIVITAMINS/MINERALS THERAPEUTIC TAB PO SCH (09:05)
[2016-09-21] MEDS: THIAMINE HCL 100 MG TAB PO SCH (09:05)
[2016-09-21] MEDS: FOLIC ACID 1 MG TAB PO SCH (09:05)
[2016-09-21] MEDS: PHYTONADIONE 5 MG TAB PO SCH (09:05)
[2016-09-21] MEDS: POTASSIUM CHLORIDE 10 MEQ CAP PO SCH ×2 (09:06→21:58)
[2016-09-21] MEDS: FUROSEMIDE 40 MG TAB PO SCH ×2 (09:06→16:47)
[2016-09-21] MEDS: PANTOPRAZOLE SOD 40 MG DELAYED RELEASE TAB PO SCH (09:07)
[2016-09-21 09:08] LABS: PLATELET ESTIMATE SMEAR LOW (NORMAL); PLATELET MORPHOLOGY NORMAL (NORMAL); SCAN/DIFF AUTO DIFF CONFIRMED
--- NOTE | 2016-09-21 10:35 | HHI.PR ---
Subjective Remarks With pain. Says she feels very tired. Says she is not able to ambulate much ,. She feels sob is improving. Also swelling in her abdomen is improving. Satting well on nasal cannula. She denies fever or chills. No nausea, vomiting diarrhea or constipation. She is eating well Objective Vitals Vital Signs Date Time Temp Pulse Resp B/P Pulse Ox O2 Delivery O2 Flow Rate FiO2 09/21/16 10:29 96 21 09/21/16 08:58 96.5 104 19 93/52 95 09/21/16 04:00 96.3 95 16 97/55 94 09/21/16 00:00 96.4 98 16 93/60 97 09/20/16 20:00 96.6 102 16 105/59 93 09/20/16 17:58 98 21 09/20/16 16:48 96.4 93 17 107/60 98 09/20/16 15:50 97.0 98 20 107/57 99 09/20/16 14:52 96.1 97 16 99/49 09/20/16 14:32 96.3 98 17 101/50 100 09/20/16 12:10 97.1 110 20 118/56 100 09/20/16 11:50 97 16 101/54 96 09/20/16 11:46 97 16 103/54 95 09/20/16 11:40 97.9 96 16 101/54 94 I/O 09/20/16 09/20/16 09/20/16 09/21/16 09/21/16 09/21/16 06:59 14:59 22:59 06:59 14:59 22:59 Intake Total 0 ml 300 ml 250 ml 0 ml Output Total 400 ml 500 ml 1000 ml Balance 0 ml -100 ml -250 ml -1000 ml Intake Oral 0 ml 0 ml 0 ml 0 ml IV Total 300 ml Cryoprecipitate 250 ml Output Urine Total 200 ml 500 ml 1000 ml Stool Total 200 ml # Voids 1 # Bowel Movements 0 1 1 Result Diagram: 09/21/16 0608 09/21/16 0608 Imaging Last Impressions Head CT 09/18/16 0907 Signed Impressions: Service Date/Time: Sunday, September 18, 2016 11:07 - CONCLUSION: 1. No acute intracranial abnormality. 2. Small subgaleal hematoma along the right posterior parietal skull. Maikel Pompa MD Chest X-Ray 09/18/16906 Signed Impressions: Service Date/Time: Sunday, September 18, 2016 09:17 - CONCLUSION: No acute disease. Michoacano Mcmullen MD Abdomen/Pelvis CT 09/18/16906 Signed Impressions: Service Date/Time: Sunday, September 18, 2016 11:15 - CONCLUSION: 1. Moderate to large amount of ascites. 2. Nodularity of the liver, splenomegaly, recanalization of the umbilical vein and peritoneal varices anteriorly indicating cirrhosis and portal hypertension. 3. Stable 2 cm low density lesion within the left lobe of the liver. 4. Anasarca. 5. Small right pleural effusion. Maikel Pompa MD Lower Extremity CT 09/18/16 0000 Signed Impressions: Service Date/Time: Sunday, September 18, 2016 11:15 - CONCLUSION: 1. Slight asymmetry of the gluteus ely muscles suggests either edema or intramuscular hematoma formation on the right. There is mild stranding of the subcutaneous fat overlying the right hip suggesting edema. No hemarthrosis or fracture of the hip. Valentin Bautista Jr., MD Cyst Biopsy Asp-Paracentesis US 09/18/16 0000 Signed Impressions: Service Date/Time: Sunday, September 18, 2016 13:52 - CONCLUSION: Uncomplicated ultrasound guided paracentesis. Saul Roberts MD FACR Objective Remarks GENERAL: 41 yo F, well nourished, well developed patient, in nad. SKIN: icteric CARDIOVASCULAR: Regular rate and rhythm. RESPIRATORY: No accessory muscle use. Clear to auscultation. Breath sounds equal bilaterally. GASTROINTESTINAL: Abdomen soft, non-tender, nondistended. Hepatic and splenic margins not palpable. MUSCULOSKELETAL: Right hip to thigh- + ecchymoses/hematoma- decreasing- softer. Extremities without clubbing, edema. NEUROLOGICAL: Awake and alert. No obvious cranial nerve deficits. Motor grossly within normal limits. Five out of 5 muscle strength in the arms and legs. Normal speech. PSYCHIATRIC: Appropriate mood and affect; insight and judgment normal. Procedures 09/18- paracentesis 4.9 L out 09/20- EGD Portal gastropathy moderate Superficial duodenal ulcerations A/P Assessment and Plan 41-year-old female presenting with increasing shortness of breath and anasarca, status post recent fall Generalized anasarca secondary to liver cirrhosis ran out of diuretics for about a week now. Status post therapeutic paracentesis - 4.9 L of ascitic fluid out 09/18 Lasix 40 mg twice a day- Aldactone 50 mg twice a day Continue on Trental 400 mg daily Fluid restriction 1 L per day Monitor - repeat paracentesis if needed Status post recent fall SUSTAINED a right hip and thigh hematoma. PT consult Symptomatic Acute anemia secondary to bleeding into the right hip and thigh s/p 2 units RBC 09/18 Subgaleal hematoma on the right status post recent fall. - Thrombocytopenia from liver cirrhosis s/p 1 pack platelet 09/18 Monitor neuro vital signs every shift- stable neruoe exam Repeat head CT in 2- 3 days to ensure resolution or stability- sooner if any acute neuro changes No signs of compartment syndrome.-Range of motions intact and good peripheral pulses CBC stable, monitor Hematology service ff S/P EGD- portal gastropathy with duodenal ulcer 09/20 PPI daily Hypokalemia.- replaced IV bolus 20 meq KCL po bid Recheck BMP in a.m. .patient restarted back on diuretics Alcohol use relapse on Librium 50 mg every 8- taper to q 12 Teds for DVT prophylaxis. No chemical prophylaxis due to thrombocytopenia PT daily Case management consult for DC planning Lis Weber MD Sep 21, 2016 10:35
[2016-09-21] MEDS: PENTOXIFYLLINE 400 MG CONTROLLED RELEASE TAB PO SCH ×2 (13:13→21:58)
--- NOTE | 2016-09-21 14:08 | PD.ONC.PN ---
Subjective Subjective Remarks Afebrile overnight. Patient resting in bed. Family at bedside. Wanting to go home. Has not noticed any further bleeding. Feels hematoma is improving. Objective Data Date Time Temp Pulse Resp B/P Pulse Ox O2 Delivery O2 Flow Rate FiO2 09/21/16 12:46 97.8 106 19 92/55 97 09/21/16 10:29 96 21 09/21/16 08:58 96.5 104 19 93/52 95 09/21/16 04:00 96.3 95 16 97/55 94 09/21/16 00:00 96.4 98 16 93/60 97 09/20/16 20:00 96.6 102 16 105/59 93 09/20/16 17:58 98 21 09/20/16 16:48 96.4 93 17 107/60 98 09/20/16 15:50 97.0 98 20 107/57 99 09/20/16 14:52 96.1 97 16 99/49 09/20/16 14:32 96.3 98 17 101/50 100 09/21/16 09/21/16 09/21/16 07:00 15:00 23:00 Intake Total 0 ml Output Total 1000 ml Balance -1000 ml Result Diagram: 09/21/16 0608 09/21/16 0608 Laboratory Results Laboratory Tests Test 09/20/16 09/21/16 18:35 06:08 Hemoglobin 8.1 GM/DL 8.2 GM/DL Hematocrit 22.7 % 23.0 % White Blood Count 3.5 TH/MM3 Red Blood Count 2.24 MIL/MM3 Mean Corpuscular Volume 102.9 FL Mean Corpuscular Hemoglobin 36.8 PG Mean Corpuscular Hemoglobin 35.8 % Concent Red Cell Distribution Width 24.4 % Platelet Count 28 TH/MM3 Mean Platelet Volume 7.7 FL Neutrophils (%) (Auto) 69.1 % Lymphocytes (%) (Auto) 22.3 % Monocytes (%) (Auto) 6.4 % Eosinophils (%) (Auto) 1.9 % Basophils (%) (Auto) 0.3 % Neutrophils # (Auto) 2.4 TH/MM3 Lymphocytes # (Auto) 0.8 TH/MM3 Monocytes # (Auto) 0.2 TH/MM3 Eosinophils # (Auto) 0.1 TH/MM3 Basophils # (Auto) 0.0 TH/MM3 CBC Comment AUTO DIFF Differential Comment AUTO DIFF CONFIRMED Platelet Estimate LOW Platelet Morphology Comment NORMAL Prothrombin Time 18.7 SEC Prothromb Time International 1.7 RATIO Ratio Activated Partial 31.5 SEC Thromboplast Time Fibrinogen 169 mg/dL Sodium Level 140 MEQ/L Potassium Level 3.6 MEQ/L Chloride Level 106 MEQ/L Carbon Dioxide Level 22.5 MEQ/L Anion Gap 12 MEQ/L Blood Urea Nitrogen 8 MG/DL Creatinine 0.70 MG/DL Estimat Glomerular Filtration 93 ML/MIN Rate Random Glucose 81 MG/DL Calcium Level 8.0 MG/DL Total Bilirubin 8.6 MG/DL Direct Bilirubin 4.6 MG/DL Indirect Bilirubin 4.0 MG/DL Aspartate Amino Transf 84 U/L (AST/SGOT) Alanine Aminotransferase 27 U/L (ALT/SGPT) Alkaline Phosphatase 95 U/L Lactate Dehydrogenase 290 U/L Total Protein 5.4 GM/DL Albumin 2.1 GM/DL Culture Results Microbiology Date/Time Procedure Status Source Growth 09/19/16 15:17 Stool Occult Blood (DARREN) - Final Complete Stool Stool HEMOCCULT NEGATIVE Administered Medications Medications (Trade) Dose Ordered Sig/Ric Route PRN Reason Start Time Stop Time Status Last Admin Dose Admin Folic Acid (Folate) 1 mg DAILY PO 09/19/16 09:00 09/21/16 09:05 Furosemide (Lasix) 40 mg DAILY@ PO 09/18/16 18:00 09/21/16 09:06 Pentoxifylline (TRENtal SR) 400 mg Q8HR PO 09/18/16 22:00 09/21/16 13:13 Multivitamins/ Minerals Therapeutic (Theragran M Tab) 1 tab DAILY PO 09/19/16 09:00 09/21/16 09:05 Thiamine HCl (Vitamin B1) 250 mg DAILY PO 09/19/16 09:00 09/21/16 09:05 Chlordiazepoxide (Librium) 50 mg Q6HR PO 09/18/16 18:00 09/21/16 13:13 Spironolactone (Aldactone) 50 mg DAILY@,18 PO 09/19/16 09:00 09/21/16 09:05 Ondansetron HCl (Zofran Inj) 4 mg Q6HR PRN IV PUSH NAUSEA OR VOMITING 09/19/16 01:45 09/19/16 15:27 Phytonadione (Mephyton) 5 mg DAILY PO 09/19/16 13:00 09/21/16 09:05 Oxycodone HCl (Roxicodone) 5 mg Q6H PRN PO PAIN SCALE 4 TO 10 09/19/16 16:30 09/21/16 09:15 Pantoprazole Sodium (Protonix) 40 mg DAILY PO 09/20/16 11:45 09/21/16 09:07 Potassium Chloride (KCl) 20 meq BID PO 09/20/16 13:00 09/21/16 09:06 Objective Remarks GENERAL: Chronically ill appearing female sitting up in bed in [facility]. SKIN: Warm and dry. HEAD: Normocephalic. EYES: No injection or drainage. NECK: Supple, trachea midline. CARDIOVASCULAR: Regular rate and rhythm RESPIRATORY: Breath sounds equal bilaterally. No accessory muscle use. GASTROINTESTINAL: Abdomen distended with ascites. EXTREMITIES: No cyanosis. hematoma along right thigh and buttock. seems to be fading a bit. NEUROLOGICAL: awake and alert, normal speech. moving extremities. Assessment/Plan Problem List: (1) Macrocytic anemia Status: Acute Plan: --secondary to her liver disease + hematoma --macrocytosis is due to alcohol abuse rather than B12 deficiency --B12/folate WNL --LDH elevated, haptoglobin low, indirect and direct bili elevated. --virgil test negative --EGD on 09/20 showed Portal gastropathy moderate and Superficial duodenal ulcerations (2) Thrombocytopenia Status: Acute Plan: -- chronic secondary to alcoholic liver disease, acute component d/t bleeding --enlarged liver and splenomegaly. --Transfuse platelets to keep above 20,000 --Check daily fibrinogen and transfuse to keep fibrinogen > 150 (3) Hematoma Status: Acute Plan: --Large hematoma status post fall. --give her vitamin-K to keep INR below 1.5. --FFP as needed (4) Cirrhosis of liver Status: Acute Plan: --Alcoholic liver disease, liver cirrhosis, splenomegaly. --GI following. (5) Coagulopathy Status: Acute Plan: --d/t liver failure --FFP prn --Vitamin K 5mg PO daily to keep INR<1.5 Assessment 41y/o female admitted with dyspnea, weakness anasarca found to be severely anemic with hematoma. history of alcohol abuse, liver cirrhosis, alcoholic liver disease, chronic anemia, thrombocytopenia, history of abdominal ascites requiring paracentesis on multiple occasions. She Plan 1. check H/H this afternoon 2. monitor CBC 3. continue Vitamin K Attending Statement The exam, history, and the medical decision-making described in the above note were completed with the assistance of the mid-level provider. I reviewed and agree with the findings presented. I attest that I had a [id number] encounter with the patient on the same day, and personally performed and documented my assessment and findings in the medical record. Yaima Francois Sep 21, 2016 14:08 Jordan Olivera MD Sep 21, 2016 23:15
[2016-09-21 16:07] LABS: HEMATOCRIT 23.2 % (35.0-46.0)
[2016-09-21 16:18] LABS: REVIEW FLAG FINAL
--- NOTE | 2016-09-21 17:49 | HHI.GIFU ---
Subjective Remarks Pt resting in bed, tearful, "i'm sad that I did this to myself." She says her stool is returning to normal color. No signs bleeding. (Blanka Reynoso) Objective Vitals I&O Vital Signs Date Time Temp Pulse Resp B/P Pulse Ox O2 Delivery O2 Flow Rate FiO2 09/21/16 16:26 97.4 101 19 105/59 95 09/21/16 12:46 97.8 106 19 92/55 97 09/21/16 10:29 96 21 09/21/16 08:58 96.5 104 19 93/52 95 09/21/16 04:00 96.3 95 16 97/55 94 09/21/16 00:00 96.4 98 16 93/60 97 09/20/16 20:00 96.6 102 16 105/59 93 09/20/16 17:58 98 21 I/O 09/20/16 09/20/16 09/20/16 09/21/16 09/21/16 09/21/16 07:00 15:00 23:00 07:00 15:00 23:00 Intake Total 0 ml 300 ml 250 ml 0 ml 720 ml Output Total 400 ml 500 ml 1000 ml 600 ml Balance 0 ml -100 ml -250 ml -1000 ml 120 ml Intake Oral 0 ml 0 ml 0 ml 0 ml 720 ml IV Total 300 ml Cryoprecipitate 250 ml Output Urine Total 200 ml 500 ml 1000 ml 600 ml Stool Total 200 ml # Voids 1 # Bowel Movements 0 1 1 2 Laboratory Laboratory Tests Test 09/20/16 09/21/16 09/21/16 18:35 06:08 15:30 Hemoglobin 8.1 8.2 8.2 Hematocrit 22.7 23.0 23.2 White Blood Count 3.5 Red Blood Count 2.24 Mean Corpuscular Volume 102.9 Mean Corpuscular Hemoglobin 36.8 Mean Corpuscular Hemoglobin 35.8 Concent Red Cell Distribution Width 24.4 Platelet Count 28 Mean Platelet Volume 7.7 Neutrophils (%) (Auto) 69.1 Lymphocytes (%) (Auto) 22.3 Monocytes (%) (Auto) 6.4 Eosinophils (%) (Auto) 1.9 Basophils (%) (Auto) 0.3 Neutrophils # (Auto) 2.4 Lymphocytes # (Auto) 0.8 Monocytes # (Auto) 0.2 Eosinophils # (Auto) 0.1 Basophils # (Auto) 0.0 CBC Comment AUTO DIFF Differential Comment AUTO DIFF CONFIRMED Platelet Estimate LOW Platelet Morphology Comment NORMAL Prothrombin Time 18.7 Prothromb Time International 1.7 Ratio Activated Partial 31.5 Thromboplast Time Fibrinogen 169 Sodium Level 140 Potassium Level 3.6 Chloride Level 106 Carbon Dioxide Level 22.5 Anion Gap 12 Blood Urea Nitrogen 8 Creatinine 0.70 Estimat Glomerular Filtration 93 Rate Random Glucose 81 Calcium Level 8.0 Total Bilirubin 8.6 Direct Bilirubin 4.6 Indirect Bilirubin 4.0 Aspartate Amino Transf 84 (AST/SGOT) Alanine Aminotransferase 27 (ALT/SGPT) Alkaline Phosphatase 95 Lactate Dehydrogenase 290 Total Protein 5.4 Albumin 2.1 Date/Time Procedure Status Source Growth 09/19/16 15:17 Stool Occult Blood (DARREN) - Final Complete Stool Stool HEMOCCULT NEGATIVE 09/18/16 09:30 Urine Culture - Final Complete Urine Random Urine 50-100,000 CFU/ML MIXED GRAM POSITIVE... Imaging Last Impressions Head CT 09/18/16906 Signed Impressions: Service Date/Time: Sunday, September 18, 2016 11:07 - CONCLUSION: 1. No acute intracranial abnormality. 2. Small subgaleal hematoma along the right posterior parietal skull. Maikel Pompa MD Chest X-Ray 09/18/16906 Signed Impressions: Service Date/Time: Sunday, September 18, 2016 09:17 - CONCLUSION: No acute disease. Michoacano Mcmullen MD Abdomen/Pelvis CT 09/18/16906 Signed Impressions: Service Date/Time: Sunday, September 18, 2016 11:15 - CONCLUSION: 1. Moderate to large amount of ascites. 2. Nodularity of the liver, splenomegaly, recanalization of the umbilical vein and peritoneal varices anteriorly indicating cirrhosis and portal hypertension. 3. Stable 2 cm low density lesion within the left lobe of the liver. 4. Anasarca. 5. Small right pleural effusion. Maikel Pompa MD Lower Extremity CT 09/18/16 0000 Signed Impressions: Service Date/Time: Sunday, September 18, 2016 11:15 - CONCLUSION: 1. Slight asymmetry of the gluteus ely muscles suggests either edema or intramuscular hematoma formation on the right. There is mild stranding of the subcutaneous fat overlying the right hip suggesting edema. No hemarthrosis or fracture of the hip. Valentin Bautista Jr., MD Cyst Biopsy Asp-Paracentesis US 09/18/16 0000 Signed Impressions: Service Date/Time: Sunday, September 18, 2016 13:52 - CONCLUSION: Uncomplicated ultrasound guided paracentesis. Saul Roberts MD FACR Physical Exam HEENT: PERRL; normocephalic; atraumatic; + icterus CHEST: CTA CARDIAC: RRR + murmur ABDOMEN: semifirm, distended, nontender; dull; bowel sounds are present in all four quadrants. EXTREMITIES: No clubbing, cyanosis, or edema. hematoma right posterior thigh SKIN: Normal; no rash; + jaundice. CAREER SERVICES OFFICER: No focal deficits; alert and oriented times three. (Blanka Reynoso) Assessment and Plan Plan ASSESSMENT - anemia - Hgb 6.8 on admission. improved. pt reports 3d of black loose stools, no priscilla blood or hematemesis. EGD 07/05/16 that showed portal HTN, no varices, hiatal hernia. hemoccult negative. s/p EGD-> portal gastropathy, superficial duodenal ulcers, path benign, chem gastropathy. - elevated LFTs, jaundice, ascites - ETOH hepatitis. hx cirrhosis. CT 09-18-16- -> moderate to large amt ascites, nodularity liver, splenomegaly, portal HTN, stable 2cm lesion left lobe liver, anasarca. DF >32, pentox, not candidate for prednisolone. s/p paracentesis with 4.9L removed. of note her blood ETOH was 204 on admission, she says she last drank 08/29. - coagulopathy - INR 1.7. vitamin K, FFP per hematology - hematoma right leg PLAN - low sodium diet - fluid restriction - continue pentoxifylline - continue diuretics - continue lactulose - monitor labs - supportive care This pt seen by myself and Dr Stover and this note is written on his behalf. ( Blanka Reynoso) Physician Comments Patient seen and examined Agree with above Continue with current supportive care Monitor labs (Rick Stover MD) Blanka Reynoso Sep 21, 2016 17:49 Rick Stover MD Sep 21, 2016 20:01
[2016-09-22] VITALS (7 sets, daily range): BP systolic 90–105; BP diastolic 48–64; PULSE 14–108; RESP 14–18; TEMP 97.6–98.9; O2SAT 96–99
[2016-09-22] MEDS: chlordiazePOXIDE 25 MG CAP PO SCH ×4 (05:05→22:37)
[2016-09-22] MEDS: PENTOXIFYLLINE 400 MG CONTROLLED RELEASE TAB PO SCH ×3 (05:12→22:37)
[2016-09-22] MEDS: MULTIVITAMINS/MINERALS THERAPEUTIC TAB PO SCH (08:08)
[2016-09-22] MEDS: THIAMINE HCL 100 MG TAB PO SCH (08:09)
[2016-09-22] MEDS: POTASSIUM CHLORIDE 10 MEQ CAP PO SCH ×2 (08:09→20:10)
[2016-09-22] MEDS: FOLIC ACID 1 MG TAB PO SCH (08:12)
[2016-09-22] MEDS: PANTOPRAZOLE SOD 40 MG DELAYED RELEASE TAB PO SCH (08:12)
[2016-09-22] MEDS: SPIRONOLACTONE 50 MG TAB PO SCH ×2 (08:12→17:56)
[2016-09-22] MEDS: FUROSEMIDE 40 MG TAB PO SCH ×2 (08:13→17:56)
[2016-09-22] MEDS: PHYTONADIONE 5 MG TAB PO SCH (08:13)
[2016-09-22 08:16] LABS: INTERNATIONAL NORMALIZED RATIO 1.6 RATIO; PROTHROMBIN TIME - PATIENT 18.3 SEC (9.8-11.6)
[2016-09-22 08:18] LABS: AUTOMATED NEUTROPHIL # 2.3 TH/MM3 (1.8-7.7); BASOPHIL % 0.6 % (0.0-2.0); EOSINOPHIL # 0.1 TH/MM3 (0-0.4); EOSINOPHIL % 1.7 % (0.0-4.0); LYMPH % 32.2 % (9.0-44.0); LYMPHOCYTE # 1.3 TH/MM3 (1.0-4.8); MEAN CELL VOLUME 104.4 FL (80.0-100.0); MEAN CORPUSCULAR HEMOGLOBIN 35.8 PG (27.0-34.0); MEAN CORPUSCULAR HGB CONC 34.3 % (32.0-36.0); MONO % 7.5 % (0.0-8.0); PLATELET COUNT 30 TH/MM3 (150-450); RED CELL DISTRIBUTION WIDTH 23.8 % (11.6-17.2); WHITE BLOOD COUNT 3.9 TH/MM3 (4.0-11.0)
[2016-09-22 08:25] LABS: HEMO FLAGS AUTO DIFF
[2016-09-22 08:34] LABS: BICARBONATE 24.7 MEQ/L (21.0-32.0); POTASSIUM 3.5 MEQ/L (3.5-5.1)
[2016-09-22] MEDS ORDERED: PANT40TA3 PO (08:35)
[2016-09-22] MEDS ORDERED: PHYT5TAB2 PO (08:35)
[2016-09-22 08:37] LABS: INDIRECT BILIRUBIN 3.6 MG/DL (0.0-0.8); TOTAL BILIRUBIN ADULT 7.9 MG/DL (0.2-1.0)
--- NOTE | 2016-09-22 08:55 | HHI.DS ---
Discharge Summary Admission Date Sep 18, 2016 at 12:56 Discharge Date: Sep 22, 2016 Admitting Diagnosis symptomatic anemia, asiites (1) Hematoma ICD Code: T14.8 Diagnosis: Principal (2) Abdominal pain ICD Code: R10.9 Diagnosis: Secondary (3) Liver failure ICD Code: K72.90 Diagnosis: Principal (4) Thrombocytopenia ICD Code: D69.6 Diagnosis: Principal (5) Pancytopenia ICD Code: D61.818 Diagnosis: Principal (6) Cirrhosis of liver ICD Code: K74.60 Diagnosis: Principal (7) Jaundice ICD Code: R17 Diagnosis: Principal (8) SOB (shortness of breath) ICD Code: R06.02 Diagnosis: Principal (9) Ascites ICD Code: R18.8 Diagnosis: Secondary (10) Coagulopathy ICD Code: D68.9 Diagnosis: Principal (11) ZACHARY (acute kidney injury) ICD Code: N17.9 Diagnosis: Secondary Procedures 09/18- paracentesis 4.9 L out 09/20- EGD Portal gastropathy moderate Superficial duodenal ulcerations Brief History - From Admission Patient is a 41-year-old female with known history of liver cirrhosis secondary to chronic alcohol use was been doing well - abstained from alcohol however admits to having a relapse last August 29. She was on a regimen of diuretics - that she ran out of these medications for about a week now. She came in here today complaining of shortness of breath associated with generalized weakness that has been going on for about 4-5 days. Patient noted generalized swelling increasing abdominal girth and swelling of the legs. And pain when she walks. About 7 days prior to admission patient was playing with her grandson and apparently she tripped on something and hit the ground. Complained of headache since then denies any fever. Also complained of hematoma on the right hip that she said is spreading down to her side. Noted Increasing jaundice. Persistence of the shortness of breath prompted consult to ER where on evaluation was noted to have anasarca and we sent the patient to IR where 4.9 L of fluid was drained. Patient feels more comfortable now after the procedure. Also on evaluation for the head CT showed noted a subgaleal hematoma. Patient reports is a bruisability however denies any gross hematuria denies any melena or hematochezia. Patient admitted for further evaluation. CBC/BMP: 09/22/16 0721 09/22/16 0721 Significant Findings Laboratory Tests Test 09/19/16 09/20/16 09/20/16 09/20/16 14:00 06:28 06:58 18:35 Hemoglobin 7.7 GM/DL 7.7 GM/DL 8.1 GM/DL (11.6-15.3) (11.6-15.3) (11.6-15.3) Hematocrit 21.2 % 21.3 % 22.7 % (35.0-46.0) (35.0-46.0) (35.0-46.0) White Blood Count 3.7 TH/MM3 (4.0-11.0) Red Blood Count 2.11 MIL/MM3 (4.00-5.30) Mean Corpuscular Volume 101.2 FL (80.0-100.0) Mean Corpuscular Hemoglobin 36.4 PG (27.0-34.0) Red Cell Distribution Width 23.3 % (11.6-17.2) Platelet Count 30 TH/MM3 (150-450) Platelet Estimate LOW (NORMAL) Spherocytes 1+ (NORMAL) Tear Drop Cells 1+ (NORMAL) Prothrombin Time 18.3 SEC (9.8-11.6) Fibrinogen 113 mg/dL (227-377) Potassium Level 3.0 MEQ/L (3.5-5.1) Calcium Level 7.8 MG/DL (8.5-10.1) Total Bilirubin 10.1 MG/DL (0.2-1.0) Direct Bilirubin 4.9 MG/DL (0.0-0.2) Indirect Bilirubin 5.2 MG/DL (0.0-0.8) Aspartate Amino Transf 105 U/L (15-37) (AST/SGOT) Total Protein 5.3 GM/DL (6.4-8.2) Albumin 2.2 GM/DL (3.4-5.0) Test 09/21/16 09/21/16 09/22/16 06:08 15:30 07:21 White Blood Count 3.5 TH/MM3 3.9 TH/MM3 (4.0-11.0) (4.0-11.0) Red Blood Count 2.24 MIL/MM3 2.30 MIL/MM3 (4.00-5.30) (4.00-5.30) Hemoglobin 8.2 GM/DL 8.2 GM/DL 8.2 GM/DL (11.6-15.3) (11.6-15.3) (11.6-15.3) Hematocrit 23.0 % 23.2 % 24.0 % (35.0-46.0) (35.0-46.0) (35.0-46.0) Mean Corpuscular Volume 102.9 FL 104.4 FL (80.0-100.0) (80.0-100.0) Mean Corpuscular Hemoglobin 36.8 PG 35.8 PG (27.0-34.0) (27.0-34.0) Red Cell Distribution Width 24.4 % 23.8 % (11.6-17.2) (11.6-17.2) Platelet Count 28 TH/MM3 30 TH/MM3 (150-450) (150-450) Lymphocytes # (Auto) 0.8 TH/MM3 (1.0-4.8) Platelet Estimate LOW (NORMAL) Prothrombin Time 18.7 SEC 18.3 SEC (9.8-11.6) (9.8-11.6) Activated Partial 31.5 SEC 31.0 SEC Thromboplast Time (24.3-30.1) (24.3-30.1) Fibrinogen 169 mg/dL 170 mg/dL (227-377) (227-377) Calcium Level 8.0 MG/DL 8.2 MG/DL (8.5-10.1) (8.5-10.1) Total Bilirubin 8.6 MG/DL 7.9 MG/DL (0.2-1.0) (0.2-1.0) Direct Bilirubin 4.6 MG/DL 4.3 MG/DL (0.0-0.2) (0.0-0.2) Indirect Bilirubin 4.0 MG/DL 3.6 MG/DL (0.0-0.8) (0.0-0.8) Aspartate Amino Transf 84 U/L (15-37) 70 U/L (15-37) (AST/SGOT) Lactate Dehydrogenase 290 U/L 289 U/L (84-246) (84-246) Total Protein 5.4 GM/DL 5.3 GM/DL (6.4-8.2) (6.4-8.2) Albumin 2.1 GM/DL 2.0 GM/DL (3.4-5.0) (3.4-5.0) Estimat Glomerular Filtration 72 ML/MIN (>89) Rate Imaging Last Impressions Head CT 09/18/16906 Signed Impressions: Service Date/Time: Sunday, September 18, 2016 11:07 - CONCLUSION: 1. No acute intracranial abnormality. 2. Small subgaleal hematoma along the right posterior parietal skull. Maikel Pompa MD Chest X-Ray 09/18/16906 Signed Impressions: Service Date/Time: Sunday, September 18, 2016 09:17 - CONCLUSION: No acute disease. Michoacano Mcmullen MD Abdomen/Pelvis CT 09/18/16906 Signed Impressions: Service Date/Time: Sunday, September 18, 2016 11:15 - CONCLUSION: 1. Moderate to large amount of ascites. 2. Nodularity of the liver, splenomegaly, recanalization of the umbilical vein and peritoneal varices anteriorly indicating cirrhosis and portal hypertension. 3. Stable 2 cm low density lesion within the left lobe of the liver. 4. Anasarca. 5. Small right pleural effusion. Maikel Pompa MD Lower Extremity CT 09/18/16 0000 Signed Impressions: Service Date/Time: Sunday, September 18, 2016 11:15 - CONCLUSION: 1. Slight asymmetry of the gluteus ely muscles suggests either edema or intramuscular hematoma formation on the right. There is mild stranding of the subcutaneous fat overlying the right hip suggesting edema. No hemarthrosis or fracture of the hip. Valentin Bautista Jr., MD Cyst Biopsy Asp-Paracentesis US 09/18/16 Signed Impressions: Service Date/Time: Sunday, September 18, 2016 13:52 - CONCLUSION: Uncomplicated ultrasound guided paracentesis. Saul Roberts MD FACR PE at Discharge GENERAL: 41 yo F, well nourished, well developed patient, in nad. SKIN: icteric CARDIOVASCULAR: Regular rate and rhythm. RESPIRATORY: No accessory muscle use. Clear to auscultation. Breath sounds equal bilaterally. GASTROINTESTINAL: Abdomen soft, non-tender, nondistended. Hepatic and splenic margins not palpable. MUSCULOSKELETAL: Right hip to thigh- + ecchymoses/hematoma- decreasing- softer. Extremities without clubbing, edema. NEUROLOGICAL: Awake and alert. No obvious cranial nerve deficits. Motor grossly within normal limits. Five out of 5 muscle strength in the arms and legs. Normal speech. PSYCHIATRIC: Appropriate mood and affect; insight and judgment normal. Pt update on day of discharge Patient in bed, says she feels less sob and edema is improving. Says she has pain at the hematoma site, Hematoma is getting softer and is also improving. No fever or chills. No n/v/d/c. Hospital Course 41-year-old female presenting with increasing shortness of breath and anasarca, status post recent fall. Patient run out of meds. Had paracentesis with 4.9 L fluid removed. SOB improved. Continue meds. patient had a ruigh hip hematoma as a result of the fall. Patient is at increased disk of bleeding 2/2 liver failure. she has coagulopathy 2/2 liver failure. Receiving vit K , discussed with hem/onc continue at DC , however not much help . Discussed with Dr Ck HI. Patient is cleared for dC to follow up in 2 weeks. Note patient is at increased risk of , poor prognosis. Says her will be able to take care of her. Discharged home in stable condition to follow up as OP with PCP and consultants. Generalized anasarca secondary to liver cirrhosis ran out of diuretics for about a week now. Status post therapeutic paracentesis - 4.9 L of ascitic fluid out 09/18 Lasix 40 mg twice a day- Aldactone 50 mg twice a day Continue on Trental 400 mg daily Fluid restriction 1 L per day Monitor - repeat paracentesis if needed Status post recent fall SUSTAINED a right hip and thigh hematoma. PT consult Symptomatic Acute anemia secondary to bleeding into the right hip and thigh s/p 2 units RBC 09/18 Subgaleal hematoma on the right status post recent fall. - Thrombocytopenia from liver cirrhosis s/p 1 pack platelet 09/18 Monitor neuro vital signs every shift- stable neruoe exam Repeat head CT in 2- 3 days to ensure resolution or stability- sooner if any acute neuro changes No signs of compartment syndrome.-Range of motions intact and good peripheral pulses CBC stable, monitor Hematology service ff S/P EGD- portal gastropathy with duodenal ulcer 09/20 PPI daily Hypokalemia.- replaced IV bolus 20 meq KCL po bid Recheck BMP in a.m. .patient restarted back on diuretics Alcohol use relapse on Librium 50 mg every 8- taper to q 12 Teds for DVT prophylaxis. No chemical prophylaxis due to thrombocytopenia PT daily Case management consult for DC planning Pt Condition on Discharge: Stable Discharge Disposition: Disch w/ Home Health Serv Discharge Time: > 30 minutes Discharge Instructions DIET: Follow Instructions for: Heart Healthy Diet Activities you can perform: Regular-No Restrictions Follow up Referrals: Gastroenterology - 2 Weeks Oncology - 3-5 Days PCP Follow-up - 3-5 Days New Medications: Oxycodone (Oxycodone) 5 Mg Cap 5 MG PO Q8H PRN PAIN #14 Ref 0 CAP Pantoprazole (Pantoprazole) 40 Mg Tab 40 MG PO DAILY gerd #30 TAB Phytonadione (Mephyton) 5 Mg Tab 5 MG PO DAILY bleeding #30 TAB Continued Medications: Folic Acid (Folic Acid) 1 Mg Tablet 1 MG PO DAILY Nutritional Supplement Furosemide (Lasix) 40 Mg Tab 40 MG PO BID #60 Ref 0 TAB Multiple Vitamins W/ Minerals (Multi For Her 50+) 1 Tab Tab 1 TAB PO DAILY Nutritional Supplement Pentoxifylline ER (Pentoxifylline ER) 400 Mg Tab 400 MG PO Q8HR hepatitis Days 28 Ref 0 TAB Thiamine (Vitamin B-1) 250 Mg Tab 250 MG PO DAILY Nutritional Supplement Ref 0 TAB Lis Weber MD Sep 22, 2016 08:55
--- NOTE | 2016-09-22 09:00 | HHI.FF ---
Face to Face Verification Diagnosis: (1) Abdominal pain (2) History of alcohol abuse (3) ZACHARY (acute kidney injury) (4) Pancytopenia (5) SOB (shortness of breath) (6) Elevated liver enzymes (7) Jaundice (8) Liver failure (9) Macrocytic anemia (10) Ascites (11) Coagulopathy (12) Cirrhosis of liver (13) Thrombocytopenia (14) Hematoma (15) Hyperbilirubinemia Physical Therapy Order: Evaluate and Treat Home Health Nursing Order: Medical education Signs/symptoms of disease process Medication education-adverse effect Nursing assessment with vital signs I have seen patient Christy Saucedo on 09/22/16. My clinical findings support the need for the requested home health care services because: Ltd mobility - disease progression Patient has SOB I certify that my clinical findings support that this patient is homebound because: Post-op weakness Lis Weber MD Sep 22, 2016 09:00
[2016-09-22] MEDS ORDERED: OXYC1CAP PO (09:33)
[2016-09-22 10:22] LABS: PLATELET ESTIMATE SMEAR LOW (NORMAL); PLATELET MORPHOLOGY NORMAL (NORMAL); SCAN/DIFF AUTO DIFF CONFIRMED
--- NOTE | 2016-09-22 13:34 | PD.ONC.PN ---
Subjective Subjective Remarks Afebrile overnight. patient eager to go home. States her hematoma is significantly improved. at bedside. No new bleeding. Objective Data Date Time Temp Pulse Resp B/P Pulse Ox O2 Delivery O2 Flow Rate FiO2 09/22/16 12:00 98.0 100 16 97/52 96 09/22/16 08:02 98 21 09/22/16 08:00 98.5 101 14 92/48 97 09/22/16 04:00 97.8 97 16 90/52 98 09/22/16 00:00 97.6 108 16 105/56 97 09/21/16 21:19 98 21 09/21/16 20:00 98.1 100 16 92/52 100 09/21/16 16:26 97.4 101 19 105/59 95 09/22/16 09/22/16 09/22/16 07:00 15:00 23:00 Intake Total 120 ml Output Total 1100 ml Balance -980 ml Result Diagram: 09/22/1672009/22/16720 Laboratory Results Laboratory Tests Test 09/21/16 09/22/16 15:30 07:21 Hemoglobin 8.2 GM/DL 8.2 GM/DL Hematocrit 23.2 % 24.0 % White Blood Count 3.9 TH/MM3 Red Blood Count 2.30 MIL/MM3 Mean Corpuscular Volume 104.4 FL Mean Corpuscular Hemoglobin 35.8 PG Mean Corpuscular Hemoglobin 34.3 % Concent Red Cell Distribution Width 23.8 % Platelet Count 30 TH/MM3 Mean Platelet Volume 7.1 FL Neutrophils (%) (Auto) 58.0 % Lymphocytes (%) (Auto) 32.2 % Monocytes (%) (Auto) 7.5 % Eosinophils (%) (Auto) 1.7 % Basophils (%) (Auto) 0.6 % Neutrophils # (Auto) 2.3 TH/MM3 Lymphocytes # (Auto) 1.3 TH/MM3 Monocytes # (Auto) 0.3 TH/MM3 Eosinophils # (Auto) 0.1 TH/MM3 Basophils # (Auto) 0.0 TH/MM3 CBC Comment AUTO DIFF Differential Comment AUTO DIFF CONFIRMED Platelet Estimate LOW Platelet Morphology Comment NORMAL Prothrombin Time 18.3 SEC Prothromb Time International 1.6 RATIO Ratio Activated Partial 31.0 SEC Thromboplast Time Fibrinogen 170 mg/dL Sodium Level 137 MEQ/L Potassium Level 3.5 MEQ/L Chloride Level 103 MEQ/L Carbon Dioxide Level 24.7 MEQ/L Anion Gap 9 MEQ/L Blood Urea Nitrogen 7 MG/DL Creatinine 0.88 MG/DL Estimat Glomerular Filtration 72 ML/MIN Rate Random Glucose 82 MG/DL Calcium Level 8.2 MG/DL Total Bilirubin 7.9 MG/DL Direct Bilirubin 4.3 MG/DL Indirect Bilirubin 3.6 MG/DL Aspartate Amino Transf 70 U/L (AST/SGOT) Alanine Aminotransferase 24 U/L (ALT/SGPT) Alkaline Phosphatase 94 U/L Lactate Dehydrogenase 289 U/L Total Protein 5.3 GM/DL Albumin 2.0 GM/DL Culture Results Microbiology Date/Time Procedure Status Source Growth 09/19/16 15:17 Stool Occult Blood (DARREN) - Final Complete Stool Stool HEMOCCULT NEGATIVE Administered Medications Medications (Trade) Dose Ordered Sig/Ric Route PRN Reason Start Time Stop Time Status Last Admin Dose Admin Folic Acid (Folate) 1 mg DAILY PO 09/19/16 09:00 09/22/16 08:12 Furosemide (Lasix) 40 mg DAILY@ PO 09/18/16 18:00 09/22/16 08:13 Pentoxifylline (TRENtal SR) 400 mg Q8HR PO 09/18/16 22:00 09/22/16 05:12 Multivitamins/ Minerals Therapeutic (Theragran M Tab) 1 tab DAILY PO 09/19/16 09:00 09/22/16 08:08 Thiamine HCl (Vitamin B1) 250 mg DAILY PO 09/19/16 09:00 09/22/16 08:09 Chlordiazepoxide (Librium) 50 mg Q6HR PO 09/18/16 18:00 09/21/16 23:57 Spironolactone (Aldactone) 50 mg DAILY@,18 PO 09/19/16 09:00 09/22/16 08:12 Ondansetron HCl (Zofran Inj) 4 mg Q6HR PRN IV PUSH NAUSEA OR VOMITING 09/19/16 01:45 09/19/16 15:27 Phytonadione (Mephyton) 5 mg DAILY PO 09/19/16 13:00 09/22/16 08:13 Oxycodone HCl (Roxicodone) 5 mg Q6H PRN PO PAIN SCALE 4 TO 10 09/19/16 16:30 09/22/16 08:16 Pantoprazole Sodium (Protonix) 40 mg DAILY PO 09/20/16 11:45 09/22/16 08:12 Potassium Chloride (KCl) 20 meq BID PO 09/20/16 13:00 09/22/16 08:09 Objective Remarks GENERAL: Young woman, upright in bed in nad. SKIN: Warm and dry. HEAD: Normocephalic. EYES: No injection or drainage. NECK: Supple, trachea midline. CARDIOVASCULAR: Regular rate and rhythm RESPIRATORY: Breath sounds equal bilaterally. No accessory muscle use. GASTROINTESTINAL: Abdomen distended with ascites. EXTREMITIES: No cyanosis. hematoma right thigh and buttock, significantly improved NEUROLOGICAL: awake and alert, normal speech. moving extremities. Assessment/Plan Problem List: (1) Macrocytic anemia Status: Acute Plan: --secondary to her liver disease + hematoma --macrocytosis is due to alcohol abuse rather than B12 deficiency --B12/folate WNL --LDH elevated, haptoglobin low, indirect and direct bili elevated. --virgil test negative --EGD on 09/20 showed Portal gastropathy moderate and Superficial duodenal ulcerations (2) Thrombocytopenia Status: Acute Plan: -- chronic secondary to alcoholic liver disease, acute component d/t bleeding --enlarged liver and splenomegaly. --Transfuse platelets to keep above 20,000 --Check daily fibrinogen and transfuse to keep fibrinogen > 150 (3) Hematoma Status: Acute Plan: --Large hematoma status post fall. --give her vitamin-K to keep INR below 1.5. --FFP as needed (4) Cirrhosis of liver Status: Acute Plan: --Alcoholic liver disease, liver cirrhosis, splenomegaly. --GI following. (5) Coagulopathy Status: Acute Plan: --d/t liver failure --FFP prn --Vitamin K 5mg PO daily to keep INR<1.5 Assessment 41y/o female admitted with dyspnea, weakness anasarca found to be severely anemic with hematoma. history of alcohol abuse, liver cirrhosis, alcoholic liver disease, chronic anemia, thrombocytopenia, history of abdominal ascites requiring paracentesis on multiple occasions. She Plan 1. patient is being discharged today. She is advised to quickly establish follow up with a local doctor. 2. I have advised her she will be at high risk for easy bleeding and will need her blood levels checked regularly. Attending Statement The exam, history, and the medical decision-making described in the above note were completed with the assistance of the mid-level provider. I reviewed and agree with the findings presented. I attest that I had a [id number] encounter with the patient on the same day, and personally performed and documented my assessment and findings in the medical record. Yaima Francois Sep 22, 2016 13:34 Jordan Olivera MD Sep 22, 2016 22:52
--- NOTE | 2016-09-22 20:24 | HHI.GIFU ---
Subjective Remarks Comfortable in bed no new complaints family at bedside Objective Vitals I&O Vital Signs Date Time Temp Pulse Resp B/P Pulse Ox O2 Delivery O2 Flow Rate FiO2 09/22/16 16:00 98.2 14 14 98/55 99 09/22/16 12:00 98.0 100 16 97/52 96 09/22/16 08:02 98 21 09/22/16 08:00 98.5 101 14 92/48 97 09/22/16 04:00 97.8 97 16 90/52 98 09/22/16 00:00 97.6 108 16 105/56 97 09/21/16 21:19 98 21 I/O 09/21/16 09/21/16 09/21/16 09/22/16 09/22/16 09/22/16 07:00 15:00 23:00 07:00 15:00 23:00 Intake Total 0 ml 720 ml 300 ml 120 ml 116 ml Output Total 1000 ml 600 ml 400 ml 1100 ml Balance -1000 ml 120 ml -100 ml -980 ml 116 ml Intake Oral 0 ml 720 ml 300 ml 120 ml 116 ml Output Urine Total 1000 ml 600 ml 400 ml 1100 ml # Voids 4 # Bowel Movements 1 2 0 0 2 Laboratory Laboratory Tests Test 09/22/16 07:21 White Blood Count 3.9 Red Blood Count 2.30 Hemoglobin 8.2 Hematocrit 24.0 Mean Corpuscular Volume 104.4 Mean Corpuscular Hemoglobin 35.8 Mean Corpuscular Hemoglobin 34.3 Concent Red Cell Distribution Width 23.8 Platelet Count 30 Mean Platelet Volume 7.1 Neutrophils (%) (Auto) 58.0 Lymphocytes (%) (Auto) 32.2 Monocytes (%) (Auto) 7.5 Eosinophils (%) (Auto) 1.7 Basophils (%) (Auto) 0.6 Neutrophils # (Auto) 2.3 Lymphocytes # (Auto) 1.3 Monocytes # (Auto) 0.3 Eosinophils # (Auto) 0.1 Basophils # (Auto) 0.0 CBC Comment AUTO DIFF Differential Comment AUTO DIFF CONFIRMED Platelet Estimate LOW Platelet Morphology Comment NORMAL Prothrombin Time 18.3 Prothromb Time International 1.6 Ratio Activated Partial 31.0 Thromboplast Time Fibrinogen 170 Sodium Level 137 Potassium Level 3.5 Chloride Level 103 Carbon Dioxide Level 24.7 Anion Gap 9 Blood Urea Nitrogen 7 Creatinine 0.88 Estimat Glomerular Filtration 72 Rate Random Glucose 82 Calcium Level 8.2 Total Bilirubin 7.9 Direct Bilirubin 4.3 Indirect Bilirubin 3.6 Aspartate Amino Transf 70 (AST/SGOT) Alanine Aminotransferase 24 (ALT/SGPT) Alkaline Phosphatase 94 Lactate Dehydrogenase 289 Total Protein 5.3 Albumin 2.0 Date/Time Procedure Status Source Growth 09/19/16 15:17 Stool Occult Blood (DARREN) - Final Complete Stool Stool HEMOCCULT NEGATIVE 09/18/16 09:30 Urine Culture - Final Complete Urine Random Urine 50-100,000 CFU/ML MIXED GRAM POSITIVE... Physical Exam HEENT: PERRL; normocephalic; atraumatic; + icterus CHEST: CTA CARDIAC: RRR + murmur ABDOMEN: semifirm, distended, nontender; dull; bowel sounds are present in all four quadrants. EXTREMITIES: No clubbing, cyanosis, or edema. hematoma right posterior thigh SKIN: Normal; no rash; + jaundice. COMMERCIAL CREDIT LEAD: No focal deficits; alert and oriented times three. Assessment and Plan Plan ASSESSMENT - anemia - Hgb 6.8 on admission. improved. pt reports 3d of black loose stools, no priscilla blood or hematemesis. EGD 07/05/16 that showed portal HTN, no varices, hiatal hernia. hemoccult negative. s/p EGD-> portal gastropathy, superficial duodenal ulcers, path benign, chem gastropathy. - elevated LFTs, jaundice, ascites - ETOH hepatitis. hx cirrhosis. CT 09-18-16- -> moderate to large amt ascites, nodularity liver, splenomegaly, portal HTN, stable 2cm lesion left lobe liver, anasarca. DF >32, pentox, not candidate for prednisolone. s/p paracentesis with 4.9L removed. of note her blood ETOH was 204 on admission, she says she last drank 08/29. - coagulopathy - INR 1.7. 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 and he spends [address] only to come back for one or 2 days and then be off again the patient's children are not at home and not available to help the patient is also taking care of her grandchild and so it looks like there is plenty of issues to address socially economically and medically at this point we need to try and find solutions for her multiple issues and as such is important to get social security assessor involved Further discussions needed in order to provide for a safe environment for the patient to go back to Prognosis is guarded and there is 50% plus mortality with her diagnosis and her situation within next few months Rick Stover MD Sep 22, 2016 20:24
[2016-09-23] VITALS: BP 95/58; PULSE 110; RESP 18; TEMP 98.7; O2SAT 96
[2016-09-23 04:00] VITALS: BP 92/53; PULSE 99; RESP 18; TEMP 97.4; O2SAT 98
[2016-09-23] MEDS: chlordiazePOXIDE 25 MG CAP PO SCH ×3 (06:13→17:28)
[2016-09-23] MEDS: PENTOXIFYLLINE 400 MG CONTROLLED RELEASE TAB PO SCH ×2 (06:13→13:14)
[2016-09-23 08:00] VITALS: BP 90/52; PULSE 108; RESP 16; TEMP 97.8; O2SAT 99
[2016-09-23] MEDS: FUROSEMIDE 40 MG TAB PO SCH ×2 (08:22→17:28)
[2016-09-23] MEDS: FOLIC ACID 1 MG TAB PO SCH (08:22)
[2016-09-23] MEDS: PHYTONADIONE 5 MG TAB PO SCH (08:22)
[2016-09-23] MEDS: MULTIVITAMINS/MINERALS THERAPEUTIC TAB PO SCH (08:22)
[2016-09-23] MEDS: SPIRONOLACTONE 50 MG TAB PO SCH ×2 (08:22→17:27)
[2016-09-23] MEDS: POTASSIUM CHLORIDE 10 MEQ CAP PO SCH (08:22)
[2016-09-23] MEDS: PANTOPRAZOLE SOD 40 MG DELAYED RELEASE TAB PO SCH (08:22)
[2016-09-23] MEDS: THIAMINE HCL 100 MG TAB PO SCH (08:23)
--- NOTE | 2016-09-23 08:31 | HHI.PR ---
Subjective Remarks Note for 09/22/16 Patient in bed, says she feels less sob and edema is improving. Says she has pain at the hematoma site, Hematoma is getting softer and is also improving. No fever or chills. No n/v/d/c. Objective Vitals Vital Signs Date Time Temp Pulse Resp B/P Pulse Ox O2 Delivery O2 Flow Rate FiO2 09/23/16 04:00 97.4 99 18 92/53 98 09/23/16 00:00 98.7 110 18 95/58 96 09/22/16 23:39 16 09/22/16 20:00 98.9 106 18 104/64 98 09/22/16 16:00 98.2 14 14 98/55 99 09/22/16 12:00 98.0 100 16 97/52 96 I/O 09/22/16 09/22/16 09/22/16 09/23/16 09/23/16 09/23/16 06:59 14:59 22:59 06:59 14:59 22:59 Intake Total 120 ml 116 ml 60 ml Output Total 1100 ml 600 ml Balance -980 ml 116 ml -540 ml Intake Oral 120 ml 116 ml 60 ml Output Urine Total 1100 ml 600 ml # Voids 4 2 # Bowel Movements 0 2 Result Diagram: 09/22/1672009/22/16720 Imaging Last Impressions Head CT 09/18/16906 Signed Impressions: Service Date/Time: Sunday, September 18, 2016 11:07 - CONCLUSION: 1. No acute intracranial abnormality. 2. Small subgaleal hematoma along the right posterior parietal skull. Maikel Pompa MD Chest X-Ray 09/18/16906 Signed Impressions: Service Date/Time: Sunday, September 18, 2016 09:17 - CONCLUSION: No acute disease. Michoacano Mcmullen MD Abdomen/Pelvis CT 09/18/16906 Signed Impressions: Service Date/Time: Sunday, September 18, 2016 11:15 - CONCLUSION: 1. Moderate to large amount of ascites. 2. Nodularity of the liver, splenomegaly, recanalization of the umbilical vein and peritoneal varices anteriorly indicating cirrhosis and portal hypertension. 3. Stable 2 cm low density lesion within the left lobe of the liver. 4. Anasarca. 5. Small right pleural effusion. Maikel Pompa MD Lower Extremity CT 09/18/16 0000 Signed Impressions: Service Date/Time: Sunday, September 18, 2016 11:15 - CONCLUSION: 1. Slight asymmetry of the gluteus ely muscles suggests either edema or intramuscular hematoma formation on the right. There is mild stranding of the subcutaneous fat overlying the right hip suggesting edema. No hemarthrosis or fracture of the hip. Valentin Bautista Jr., MD Cyst Biopsy Asp-Paracentesis US 09/18/16 0000 Signed Impressions: Service Date/Time: Sunday, September 18, 2016 13:52 - CONCLUSION: Uncomplicated ultrasound guided paracentesis. Saul Roberts MD FACR Objective Remarks GENERAL: 41 yo F, well nourished, well developed patient, in nad. SKIN: icteric CARDIOVASCULAR: Regular rate and rhythm. RESPIRATORY: No accessory muscle use. Clear to auscultation. Breath sounds equal bilaterally. GASTROINTESTINAL: Abdomen soft, non-tender, nondistended. Hepatic and splenic margins not palpable. MUSCULOSKELETAL: Right hip to thigh- + ecchymoses/hematoma- decreasing- softer. Extremities without clubbing, edema. NEUROLOGICAL: Awake and alert. No obvious cranial nerve deficits. Motor grossly within normal limits. Five out of 5 muscle strength in the arms and legs. Normal speech. PSYCHIATRIC: Appropriate mood and affect; insight and judgment normal. Procedures 09/18- paracentesis 4.9 L out 09/20- EGD Portal gastropathy moderate Superficial duodenal ulcerations A/P Problem List: (1) Hematoma ICD Code: T14.8 Status: Acute (2) Abdominal pain ICD Code: R10.9 Status: Acute (3) Liver failure ICD Code: K72.90 Status: Chronic (4) Thrombocytopenia ICD Code: D69.6 Status: Acute (5) Pancytopenia ICD Code: D61.818 Status: Acute (6) Cirrhosis of liver ICD Code: K74.60 Status: Acute (7) Jaundice ICD Code: R17 Status: Acute (8) SOB (shortness of breath) ICD Code: R06.02 Status: Acute (9) Ascites ICD Code: R18.8 Status: Acute (10) Coagulopathy ICD Code: D68.9 Status: Acute (11) ZACHARY (acute kidney injury) ICD Code: N17.9 Status: Resolved Assessment and Plan Generalized anasarca secondary to liver cirrhosis ran out of diuretics for about a week now. Status post therapeutic paracentesis - 4.9 L of ascitic fluid out 09/18 Lasix 40 mg twice a day- Aldactone 50 mg twice a day Continue on Trental 400 mg daily Fluid restriction 1 L per day Monitor - repeat paracentesis if needed Status post recent fall SUSTAINED a right hip and thigh hematoma. PT consult Symptomatic Acute anemia secondary to bleeding into the right hip and thigh s/p 2 units RBC 09/18 Subgaleal hematoma on the right status post recent fall. - Thrombocytopenia from liver cirrhosis s/p 1 pack platelet 09/18 Monitor neuro vital signs every shift- stable neruoe exam Repeat head CT in 2- 3 days to ensure resolution or stability- sooner if any acute neuro changes No signs of compartment syndrome.-Range of motions intact and good peripheral pulses CBC stable, monitor Hematology service ff S/P EGD- portal gastropathy with duodenal ulcer 09/20 PPI daily Hypokalemia.- replaced IV bolus 20 meq KCL po bid Recheck BMP in a.m. .patient restarted back on diuretics Alcohol use relapse on Librium 50 mg every 8- taper to q 12 Teds for DVT prophylaxis. No chemical prophylaxis due to thrombocytopenia PT daily Case management consult for DC planning PT recommends rehab. Patient to have PT as OP. Says she has help her at home. Patient with poor prognosis. Lis Weber MD Sep 23, 2016 08:31
[2016-09-23 12:00] VITALS: BP 101/53; PULSE 107; RESP 18; TEMP 97.6; O2SAT 97
[2016-09-23] MEDS ORDERED: CHLO25CA9 PO (12:29)
[2016-09-23] MEDS ORDERED: CHLO10CA5 PO (12:29)
[2016-09-23] MEDS ORDERED: CHLO5CAP4 PO (12:29)
--- NOTE | 2016-09-23 14:23 | HHI.GIFU ---
Subjective Remarks Patient is resting in bed, feeling weak, some dry heaves and nausea, was suppose to have paracentesis today but cancelled (BreeMae LOVE) Objective Vitals I&O Vital Signs Date Time Temp Pulse Resp B/P Pulse Ox O2 Delivery O2 Flow Rate FiO2 09/23/16 12:00 97.6 107 18 101/53 97 09/23/16 08:00 97.8 108 16 90/52 99 09/23/16 04:00 97.4 99 18 92/53 98 09/23/16 00:00 98.7 110 18 95/58 96 09/22/16 23:39 16 09/22/16 20:00 98.9 106 18 104/64 98 09/22/16 16:00 98.2 14 14 98/55 99 I/O 09/22/16 09/22/16 09/22/16 09/23/16 09/23/16 09/23/16 07:00 15:00 23:00 07:00 15:00 23:00 Intake Total 120 ml 116 ml 60 ml Output Total 1100 ml 600 ml Balance -980 ml 116 ml -540 ml Intake Oral 120 ml 116 ml 60 ml Output Urine Total 1100 ml 600 ml # Voids 4 2 # Bowel Movements 0 2 Laboratory Laboratory Tests Test 09/23/16 07:07 Lactate Dehydrogenase 298 Date/Time Procedure Status Source Growth 09/19/16 15:17 Stool Occult Blood (DARREN) - Final Complete Stool Stool HEMOCCULT NEGATIVE Imaging Last Impressions Head CT 09/18/16906 Signed Impressions: Service Date/Time: Sunday, September 18, 2016 11:07 - CONCLUSION: 1. No acute intracranial abnormality. 2. Small subgaleal hematoma along the right posterior parietal skull. Maikel Pompa MD Chest X-Ray 09/18/16906 Signed Impressions: Service Date/Time: Sunday, September 18, 2016 09:17 - CONCLUSION: No acute disease. Michoacano Mcmullen MD Abdomen/Pelvis CT 09/18/16906 Signed Impressions: Service Date/Time: Sunday, September 18, 2016 11:15 - CONCLUSION: 1. Moderate to large amount of ascites. 2. Nodularity of the liver, splenomegaly, recanalization of the umbilical vein and peritoneal varices anteriorly indicating cirrhosis and portal hypertension. 3. Stable 2 cm low density lesion within the left lobe of the liver. 4. Anasarca. 5. Small right pleural effusion. Maikel Pompa MD Lower Extremity CT 09/18/16 0000 Signed Impressions: Service Date/Time: Sunday, September 18, 2016 11:15 - CONCLUSION: 1. Slight asymmetry of the gluteus ely muscles suggests either edema or intramuscular hematoma formation on the right. There is mild stranding of the subcutaneous fat overlying the right hip suggesting edema. No hemarthrosis or fracture of the hip. Valentin Bautista Jr., MD Cyst Biopsy Asp-Paracentesis US 09/18/16 0000 Signed Impressions: Service Date/Time: Sunday, September 18, 2016 13:52 - CONCLUSION: Uncomplicated ultrasound guided paracentesis. Saul Roberts MD FACR Physical Exam HEENT: PERRL; normocephalic; atraumatic; + icterus CHEST: CTA CARDIAC: RRR + murmur ABDOMEN: firm , distended, nontender; ascites; bowel sounds are present in all four quadrants. EXTREMITIES: No clubbing, cyanosis, or edema. hematoma right posterior thigh SKIN: Normal; no rash; + jaundice. COLD PATCHER: No focal deficits; alert and oriented times three. ([employer]) Assessment and Plan Plan ASSESSMENT - anemia - Hgb 6.8 on admission. HH has been stable. pt reports black loose stools, no priscilla blood or hematemesis. EGD 07/05/16 that showed portal HTN, no varices, hiatal hernia. Hemoccult negative. s/p EGD (09/20/16)-> portal gastropathy, superficial duodenal ulcers, path benign, chem gastropathy. - elevated LFTs, jaundice, ascites - ETOH hepatitis. hx cirrhosis. CT 09-18-16- -> moderate to large amt ascites, nodularity liver, splenomegaly, portal HTN, stable 2cm lesion left lobe liver, anasarca. DF >32, pentox, not candidate for prednisolone. s/p paracentesis with 4.9L removed. of note her blood ETOH was 204 on admission, she says she last drank 08/29. - coagulopathy - INR 1.7. vitamin K, FFP per hematology - Thrombocytopenia plt 30 - hematoma right leg PLAN - low sodium diet - fluid restriction - continue pentoxifylline - continue diuretics - continue lactulose - monitor labs - Poor prognosis - F/u with GI post discharge - Will need colonoscopy once stable - Alcohol cessation - supportive care Dr. 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 social media & mobile manager involved Further discussions needed in order to provide for a safe environment for the patient to go back to Prognosis is guarded and there is 50% plus mortality with her diagnosis and her situation within next few months" (Mae Giron) Physician Comments Patient seen and examined Agree with above Continue with current supportive care Monitor labs (Rick Stover MD) Mae Giron Sep 23, 2016 14:23 Rick Stover MD Sep 23, 2016 18:52
== END 2016-09-23 17:33 | disposition home health service (06) | DRG 813 ==
LOC: NEPC 08:39 → NEDA 12:56 → HOCA 17:30 → HOCB 18:31 → HOCA 18:32
PROVIDERS: ADMIT Hospitalist; ATTEND Hospitalist
PROC: 30233N1 Transfusion of Nonautologous Red Blood Cells into Peripheral Vein, Percutaneous Approach (ICD-10-PCS; principal; 2016-09-18)
PROC: 0W9G3ZZ Drainage of Peritoneal Cavity, Percutaneous Approach (ICD-10-PCS; 2016-09-18)
PROC: 30233K1 Transfusion of Nonautologous Frozen Plasma into Peripheral Vein, Percutaneous Approach (ICD-10-PCS; 2016-09-19)
PROC: 30233N1 Transfusion of Nonautologous Red Blood Cells into Peripheral Vein, Percutaneous Approach (ICD-10-PCS; 2016-09-19)
PROC: 30233R1 Transfusion of Nonautologous Platelets into Peripheral Vein, Percutaneous Approach (ICD-10-PCS; 2016-09-19)
PROC: 30233M1 Transfusion of Nonautologous Plasma Cryoprecipitate into Peripheral Vein, Percutaneous Approach (ICD-10-PCS; 2016-09-20)
PROC: 0DB78ZX Excision of Stomach, Pylorus, Via Natural or Artificial Opening Endoscopic, Diagnostic (ICD-10-PCS; 2016-09-20)
DX: D68.4 Acquired coagulation factor deficiency (principal); N17.9 Acute kidney failure, unspecified; D61.818 Other pancytopenia; D62 Acute posthemorrhagic anemia; K76.6 Portal hypertension; K26.9 Duodenal ulcer, unspecified as acute or chronic, without hemorrhage or perforation; D69.59 Other secondary thrombocytopenia; K70.31 Alcoholic cirrhosis of liver with ascites; K70.40 Alcoholic hepatic failure without coma; I10 Essential (primary) hypertension; E11.9 Type 2 diabetes mellitus without complications; F43.10 Post-traumatic stress disorder, unspecified; E87.6 Hypokalemia; S70.01XA Contusion of right hip, initial encounter; S00.03XA Contusion of scalp, initial encounter; W19.XXXA Unspecified fall, initial encounter; F10.10 Alcohol abuse, uncomplicated; K31.89 Other diseases of stomach and duodenum; D75.89 Other specified diseases of blood and blood-forming organs; K70.11 Alcoholic hepatitis with ascites
CPT/HCPCS: 36430; 49083; 70450; 71010; 73700; 74177; 80048; 80053; 80076; 80307; 81001; 82140; 82272; 82607; 82746; 83010; 83615; 83690; 84703; 85014; 85018; 85025; 85027; 85384; 85610; 85730; 86077; 86850; 86870; 86880; 86900; 86901; 86902; 86920; 86922; 86927; 86965; 87086; 88305; 96361; 96365; C1729; J0696; J2405; J3480; J7030; J7050; P9016; P9017; P9035; Q9967

== ENCOUNTER 2016-10-04 21:49 | Inpatient (IN) | payer MEDICAID ==
[~2016-10-04] VITALS: Ht 160 cm; Wt 75.3 kg
[~2016-10-04 21:49] MED LIST changes: +CHLO5CAP4 PO; +OXYC1CAP PO; +PANT40TA3 PO; +PHYT5TAB2 PO
[2016-10-04 21:51] VITALS: BP 133/58; PULSE 130; RESP 18; TEMP 98.5; O2SAT 95
--- NOTE | 2016-10-04 21:58 | PD ---
Physical Exam Date Seen by Provider: Oct 04, 2016 Time Seen by Provider: 21:57 Narrative 41 yo female here for chest pain and SOB. History of live failure. Going on for about 1 hour before coming. Recently admitted to the hospital and had paracenthesis. No recent travel or injury. Vitals are stable in triage. Awaiting Bed placement. Data Data Last Documented VS Vital Signs Date Time Temp Pulse Resp B/P Pulse Ox O2 Delivery O2 Flow Rate FiO2 10/04/16 21:51 98.5 130 18 133/58 95 Room Air [facility] Medical Record Reviewed: Yes Supervised Visit with EDA: Mohamud Steel Oct 04, 2016 21:58
--- NOTE | 2016-10-04 22:05 | PD ---
HPI . SOB today Chief Complaint: Respiratory Symptoms Time Seen by Provider: 22:05 Travel History International Travel<30 days: No Contact w/Intl Traveler<30days: No Traveled to known affect area: No History of Present Illness HPI 41-year-old female with history of alcoholic liver cirrhosis, portal hypertension, recent dx duodenal ulcers here with complaints of shortness of breath today. Patient reports that her abdomen is with a bit more distended than usual and that she now has some shortness of breath. She also reports being very uncomfortable due to the size of her belly and her level of shortness of breath. She is tearful requesting pain medications and something to help her with her symptoms. She tells me she was [facility] and that she had some issues with her JOHNNY. She is hoping to get a liver transplant. She was recently admitted 09/18/16 and had a paracentesis x 1 with 4.9 L drained. She was placed on meds and tells me she has been taking them. She also had some issues with her H/H and received blood transfusion and FFP. She was discharged with Vitamin K and told to f/u with heme/onc, which she has yet to do. PFSH Past Medical History Depression: Yes Cardiovascular Problems: Yes (HEART MURMER) Cirrhosis: Yes (LIVER FAILURE DUE TO ETOH AND TYLENOL) Diabetes: Yes (no meds at this time) Diminished Hearing: No Genitourinary: No Musculoskeletal: No Neurologic: No Psychiatric: Yes Reproductive: No Respiratory: No ?: Not : 3 Para: 3 Miscarriage: 0 : 0 Past Surgical History Abdominal Surgery: Yes (ex lap ) Cardiac Surgery: No Section: Yes (x 3) Cholecystectomy: Yes Genitourinary Surgery: Yes Pacemaker: No Thoracic Surgery: No Other Surgery: Yes (gallbladder removal and appendix ) Social History Alcohol Use: Yes (2 4-LOCO PER DAY) Tobacco Use: No Substance Use: No Allergies-Medications (Allergen,Severity, Reaction): Coded Allergies: Morphine (Verified Adverse Reaction, Mild, Nausea/Vomiting, 10/04/16) Reported Meds & Prescriptions Reported Meds & Active Scripts Active Ranitidine (Ranitidine HCl) 150 Mg Tab 150 Mg PO DAILY Spironolactone 100 Mg Tab 100 Mg PO DAILY Pantoprazole (Pantoprazole Sodium) 40 Mg Tab 40 Mg PO DAILY Lasix (Furosemide) 40 Mg Tab 80 Mg PO BID Vitamin B-1 (Thiamine HCl) 250 Mg Tab 250 Mg PO DAILY Folic Acid 1 Mg Tablet 1 Mg PO DAILY Pentoxifylline ER (Pentoxifylline) 400 Mg Tab 400 Mg PO Q8HR Chlordiazepoxide HCl 5 Mg Capsule 5 Mg PO DIRECTED Day 1 Take one tab of 25 mg every 6 hrs for 1 day Day 2 take one tablet 25 mg every 8 hrs for one day Day 3 take one tablet 25 mg twice a day for one day Day 4 take 1 tablet for one day Day 5 Continue with 10 mg tab twice a day for one day Day 6 then 10 mg once a day for one day. Day 7 and Day 8 5 mg po daily (for 2 days) and then stop Reported Multi For Her 50+ (Multiple Vitamins W/ Minerals) 1 Tab Tab 1 Tab PO DAILY Review of Systems General / Constitutional: No: Fever Eyes: No: Visual changes HENT: No: Headaches Cardiovascular: No: Chest Pain or Discomfort Respiratory: Positive: Shortness of Breath Gastrointestinal: No: Abdominal Pain Genitourinary: No: Dysuria Musculoskeletal: No: Pain Skin: No Rash Neurologic: No: Weakness Psychiatric: No: Depression Endocrine: No: Polydipsia Hematologic/Lymphatic: No: Easy Bruising Physical Exam Narrative GENERAL: AAO x 3, moderate distress, appears ill SKIN: Warm and dry. No visible rashes or bruising. HEAD: Normocephalic and atraumatic. EYES: Icterus bilaterally, EOM intact ENT: No nasal drainage noted. Mucous membranes pink. Airway patent. NECK: Supple, trachea midline. No JVD. CARDIOVASCULAR: Tachycardic on examination RESPIRATORY: Breath sounds image bilaterally GASTROINTESTINAL: Abdomen is distended, mild tenderness, anasarca EXTREMITIES: 2+ pitting edema bilateral lower extremities, BACK: No obvious deformity. 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 normal b/l, UE and LE 5/5, no focal deficits PSYCH: AAO x 3, flat affect Data Data Last Documented VS Vital Signs Date Time Temp Pulse Resp B/P Pulse Ox O2 Delivery O2 Flow Rate FiO2 10/04/16 23:20 112 14 122/68 98 Room Air 10/04/16 21:51 98.5 Orders Complete Blood Count With Diff (10/04/16 22:17) Comprehensive Metabolic Panel (10/04/16 22:17) Lipase (10/04/16 22:17) Urinalysis - C+S If Indicated (10/04/16 22:17) Iv Access Insert/Monitor (10/04/16 22:17) Ecg Monitoring (10/04/16 22:17) Oximetry (10/04/16 22:17) Sodium Chloride 0.9% Flush (Ns Flush) (10/04/16 22:30) Ammonia (10/04/16 22:17) Alcohol (Ethanol) (10/04/16 22:17) Chest, Single Ap (10/04/16 ) Hydromorphone Pf Inj (Dilaudid Pf Inj) (10/04/16 22:30) Prothrombin Time / Inr (Pt) (10/04/16 22:27) Act Partial Throm Time (Ptt) (10/04/16 22:27) Electrocardiogram (10/04/16 ) Creatine Kinase (Cpk) (10/04/16 22:33) Troponin I (10/04/16 22:33) Labs Laboratory Tests Test 10/04/16 22:33 Prothrombin Time 18.0 SEC Prothromb Time International 1.6 RATIO Ratio Activated Partial 30.9 SEC Thromboplast Time Ammonia 65 MCMOL/L White Blood Count 5.3 TH/MM3 Red Blood Count 2.61 MIL/MM3 Hemoglobin 9.6 GM/DL Hematocrit 28.4 % Mean Corpuscular Volume 108.6 FL Mean Corpuscular Hemoglobin 36.6 PG Mean Corpuscular Hemoglobin 33.7 % Concent Red Cell Distribution Width 21.0 % Platelet Count 89 TH/MM3 Mean Platelet Volume 7.0 FL Neutrophils (%) (Auto) 65.5 % Lymphocytes (%) (Auto) 23.8 % Monocytes (%) (Auto) 8.2 % Eosinophils (%) (Auto) 1.2 % Basophils (%) (Auto) 1.3 % Neutrophils # (Auto) 3.5 TH/MM3 Lymphocytes # (Auto) 1.3 TH/MM3 Monocytes # (Auto) 0.4 TH/MM3 Eosinophils # (Auto) 0.1 TH/MM3 Basophils # (Auto) 0.1 TH/MM3 CBC Comment AUTO DIFF Differential Comment AUTO DIFF CONFIRMED Platelet Estimate LOW Platelet Morphology Comment NORMAL Acanthocytes 1+ Keratocytes OCC Sodium Level 143 MEQ/L Potassium Level 3.6 MEQ/L Chloride Level 111 MEQ/L Carbon Dioxide Level 23.6 MEQ/L Anion Gap 8 MEQ/L Blood Urea Nitrogen 5 MG/DL Creatinine 0.82 MG/DL Estimat Glomerular Filtration 78 ML/MIN Rate Random Glucose 113 MG/DL Calcium Level 7.7 MG/DL Total Bilirubin 6.1 MG/DL Aspartate Amino Transf 55 U/L (AST/SGOT) Alanine Aminotransferase 19 U/L (ALT/SGPT) Alkaline Phosphatase 97 U/L Total Creatine Kinase 81 U/L Troponin I LESS THAN 0.02 NG/ML Total Protein 6.2 GM/DL Albumin 2.3 GM/DL Lipase 319 U/L Ethyl Alcohol Level LESS THAN 3 MG/DL MDM Medical Decision Making Medical Screen Exam Complete: Yes Emergency Medical Condition: Yes Medical Record Reviewed: Yes Differential Diagnosis End stage liver disease, liver cirrhosis due to etoh, coagulopathy, anasarca Narrative Course 41-year-old female here with alcoholic liver cirrhosis and what appears to be end-stage liver disease. Patient has a distinctly distended abdomen and will more than likely require admission for paracentesis. Labs including CBC, CMP, lipase, coags, ammonia and alcohol have been ordered. Chest x-ray also ordered. She was recently here in August [address] scan of the abdomen and pelvis done. I have reviewed those results. Case discussed with my attending Dr. Mcconnell, who will make further recommendations pending workup. Shona Arreola Oct 04, 2016 22:05
[2016-10-04] MEDS ORDERED: HYDROmorphone HCL PF 1 MG/ML VIAL IV PUSH ONE (22:30)
[2016-10-04] MEDS ORDERED: SODIUM CHLORIDE 0.9% FLUSH 10 ML FLUSH IV FLUSH PRN (22:30)
--- NOTE | 2016-10-04 22:48 | RADRPT ---
EXAM DATE/TIME: 10/04/2016 22:15 [facility] COMPARISON: CHEST SINGLE AP, September 18, 2016, 9:17. INDICATIONS : Shortness of breath, abdominal pain MEDICAL HISTORY : Cirrhosis. SURGICAL HISTORY : None. ENCOUNTER: Initial ACUITY: 2 days PAIN SCORE: 0/10 LOCATION: Bilateral chest FINDINGS: Mild basal atelectasis. No effusion. No pneumothorax. Heart size upper limits normal. CONCLUSION: 1. Mild basal atelectasis. No effusion or pneumothorax. Cliff Montez MD on October 04, 2016 at 22:44 Board Certified Radiologist. This report was verified electronically.
[2016-10-04 22:51] LABS: AUTOMATED NEUTROPHIL # 3.5 TH/MM3 (1.8-7.7); BASOPHIL # 0.1 TH/MM3 (0-0.2); BASOPHIL % 1.3 % (0.0-2.0); EOSINOPHIL # 0.1 TH/MM3 (0-0.4); EOSINOPHIL % 1.2 % (0.0-4.0); HEMATOCRIT 28.4 % (35.0-46.0); LYMPH % 23.8 % (9.0-44.0); LYMPHOCYTE # 1.3 TH/MM3 (1.0-4.8); MEAN CELL VOLUME 108.6 FL (80.0-100.0); MEAN CORPUSCULAR HEMOGLOBIN 36.6 PG (27.0-34.0); MEAN CORPUSCULAR HGB CONC 33.7 % (32.0-36.0); MONO % 8.2 % (0.0-8.0); NEUT % 65.5 % (16.0-70.0); PLATELET COUNT 89 TH/MM3 (150-450); RED BLOOD COUNT 2.61 MIL/MM3 (4.00-5.30); WHITE BLOOD COUNT 5.3 TH/MM3 (4.0-11.0)
[2016-10-04 22:53] LABS: HEMO FLAGS AUTO DIFF
[2016-10-04 23:04] LABS: APTT (PATIENT) 30.9 SEC (24.3-30.1); INTERNATIONAL NORMALIZED RATIO 1.6 RATIO
[2016-10-04 23:11] LABS: ALT (GPT) 19 U/L (10-53); ANION GAP 8 MEQ/L (5-15); AST (GOT) 55 U/L (15-37); BICARBONATE 23.6 MEQ/L (21.0-32.0); BLOOD UREA NITROGEN 5 MG/DL (7-18); CHLORIDE 111 MEQ/L (98-107); GLOMERULAR FILTRATION RATE 78 ML/MIN (>89); POTASSIUM 3.6 MEQ/L (3.5-5.1); SODIUM (NA) 143 MEQ/L (136-145)
[2016-10-04 23:14] LABS: ALKALINE PHOSPHATASE 97 U/L (45-117); TOTAL BILIRUBIN ADULT 6.1 MG/DL (0.2-1.0)
[2016-10-04 23:20] VITALS: BP 122/68; PULSE 112; RESP 14; O2SAT 98
[2016-10-04 23:24] LABS: ACANTHOCYTES 1+ (NORMAL); KERATOCYTES OCC (NORMAL)
[2016-10-04 23:25] LABS: PLATELET ESTIMATE SMEAR LOW (NORMAL); PLATELET MORPHOLOGY NORMAL (NORMAL); SCAN/DIFF AUTO DIFF CONFIRMED
--- NOTE | 2016-10-04 23:39 | PD ---
Data Data Last Documented VS Vital Signs Date Time Temp Pulse Resp B/P Pulse Ox O2 Delivery O2 Flow Rate FiO2 10/04/16 22:31 96 20 97 Room Air 10/04/16 21:51 98.5 133/58 Orders Complete Blood Count With Diff (10/04/16 22:17) Comprehensive Metabolic Panel (10/04/16 22:17) Lipase (10/04/16 22:17) Urinalysis - C+S If Indicated (10/04/16 22:17) Iv Access Insert/Monitor (10/04/16 22:17) Ecg Monitoring (10/04/16 22:17) Oximetry (10/04/16 22:17) Sodium Chloride 0.9% Flush (Ns Flush) (10/04/16 22:30) Ammonia (10/04/16 22:17) Alcohol (Ethanol) (10/04/16 22:17) Chest, Single Ap (10/04/16 ) Hydromorphone Pf Inj (Dilaudid Pf Inj) (10/04/16 22:30) Prothrombin Time / Inr (Pt) (10/04/16 22:27) Act Partial Throm Time (Ptt) (10/04/16 22:27) Electrocardiogram (10/04/16 ) Labs Laboratory Tests Test 10/04/16 22:33 White Blood Count 5.3 TH/MM3 Red Blood Count 2.61 MIL/MM3 Hemoglobin 9.6 GM/DL Hematocrit 28.4 % Mean Corpuscular Volume 108.6 FL Mean Corpuscular Hemoglobin 36.6 PG Mean Corpuscular Hemoglobin 33.7 % Concent Red Cell Distribution Width 21.0 % Platelet Count 89 TH/MM3 Mean Platelet Volume 7.0 FL Neutrophils (%) (Auto) 65.5 % Lymphocytes (%) (Auto) 23.8 % Monocytes (%) (Auto) 8.2 % Eosinophils (%) (Auto) 1.2 % Basophils (%) (Auto) 1.3 % Neutrophils # (Auto) 3.5 TH/MM3 Lymphocytes # (Auto) 1.3 TH/MM3 Monocytes # (Auto) 0.4 TH/MM3 Eosinophils # (Auto) 0.1 TH/MM3 Basophils # (Auto) 0.1 TH/MM3 CBC Comment AUTO DIFF Differential Comment AUTO DIFF CONFIRMED Platelet Estimate LOW Platelet Morphology Comment NORMAL Acanthocytes 1+ Keratocytes OCC Prothrombin Time 18.0 SEC Prothromb Time International 1.6 RATIO Ratio Activated Partial 30.9 SEC Thromboplast Time Sodium Level 143 MEQ/L Potassium Level 3.6 MEQ/L Chloride Level 111 MEQ/L Carbon Dioxide Level 23.6 MEQ/L Anion Gap 8 MEQ/L Blood Urea Nitrogen 5 MG/DL Creatinine 0.82 MG/DL Estimat Glomerular Filtration 78 ML/MIN Rate Random Glucose 113 MG/DL Calcium Level 7.7 MG/DL Total Bilirubin 6.1 MG/DL Aspartate Amino Transf 55 U/L (AST/SGOT) Alanine Aminotransferase 19 U/L (ALT/SGPT) Alkaline Phosphatase 97 U/L Ammonia 65 MCMOL/L Total Protein 6.2 GM/DL Albumin 2.3 GM/DL Lipase 319 U/L Ethyl Alcohol Level LESS THAN 3 MG/DL MDM Supervised Visit with EDA: Yes Narrative Course I, Dr. Mcconnell, have reviewed the advance practice practitioner's documentation and am in agreement, met with the patient face to face, made the diagnosis, and the medical decision making was done by me. See her note for further details. Briefly this is a 41-year-old female with history of end-stage liver disease secondary to alcoholic cirrhosis, here for evaluation of abdominal pain and distention, shortness of breath, and chest pain. On physical exam the patient is in mild respiratory distress with poor air movement bilaterally. Her abdomen is distended with fluid wave with mild diffuse tenderness without peritoneal signs. Initial vital signs show heart rate 1:30, blood pressure 133/58, pulse ox 95% on room air, oral temp of 98.5 from high. CBC shows WBC 5.3, hemoglobin 9.6, hematocrit 28.4, MCV 108.6, platelets 89. CMP is remarkable for TB bili 6.1, calcium 7.7, albumin 2.3. Lipase is 319. Ammonia level is 65. INR is 1.6. Chest x-ray shows mild basilar atelectasis. No effusion or pneumothorax. EKG: Sinus, rate 96, normal axis, normal intervals, Q waves in inferior leads, no acute ischemic abnormality. Patient was given a dose of Dilaudid. On reassessment she is still slightly tachypneic with an O2 saturation of 95% on room air. Her abdomen is significantly distended. There are no peritoneal signs on exam. I do not believe she has SBP. I do believe that the patient does require therapeutic paracentesis given her respiratory symptoms and O2 saturation 95%. She was also complaining of chest pain. Patient will be admitted for further treatment and evaluation. Case discussed with hospitalist Dr Peoples who will admit the patient to her service for overnight observation. Diagnosis Primary Impression: Chest pain Qualified Code: R07.9 - Chest pain, unspecified type Additional Impressions: Ascites Qualified Code: K70.31 - Ascites due to alcoholic cirrhosis Shortness of breath Admitting Information Admitting Physician Requests: Observation Aureliano Mcconnell MD Oct 04, 2016 23:39
[2016-10-05] MEDS ORDERED: SODIUM CHLORIDE 0.9% FLUSH 10 ML FLUSH IV FLUSH PRN
[2016-10-05] MEDS ORDERED: NALOXONE HCL 0.4 MG/ML AMP IV PRN
[2016-10-05 00:34] VITALS: BP 113/73; PULSE 99; RESP 16; O2SAT 99
[2016-10-05 01:40] LABS: CREATINE KINASE 81 U/L (26-192)
[2016-10-05 05:56] VITALS: BP 123/75; PULSE 95; RESP 16; TEMP 98.7; O2SAT 98
[2016-10-05 06:35] LABS: ANION GAP 9 MEQ/L (5-15); BICARBONATE 21.5 MEQ/L (21.0-32.0); BLOOD UREA NITROGEN 5 MG/DL (7-18); CHLORIDE 112 MEQ/L (98-107); GLOMERULAR FILTRATION RATE 101 ML/MIN (>89); POTASSIUM 3.9 MEQ/L (3.5-5.1); SODIUM (NA) 142 MEQ/L (136-145)
[2016-10-05 06:44] LABS: CREATINE KINASE 60 U/L (26-192)
[2016-10-05 07:08] LABS: INTERNATIONAL NORMALIZED RATIO 1.7 RATIO; PROTHROMBIN TIME - PATIENT 18.7 SEC (9.8-11.6)
[2016-10-05 07:10] LABS: AUTOMATED NEUTROPHIL # 3.4 TH/MM3 (1.8-7.7); BASOPHIL # 0.1 TH/MM3 (0-0.2); BASOPHIL % 1.5 % (0.0-2.0); EOSINOPHIL # 0.1 TH/MM3 (0-0.4); EOSINOPHIL % 1.5 % (0.0-4.0); HEMATOCRIT 26.5 % (35.0-46.0); LYMPH % 24.9 % (9.0-44.0); LYMPHOCYTE # 1.3 TH/MM3 (1.0-4.8); MEAN CELL VOLUME 107.8 FL (80.0-100.0); MEAN CORPUSCULAR HEMOGLOBIN 36.4 PG (27.0-34.0); MEAN CORPUSCULAR HGB CONC 33.8 % (32.0-36.0); MONO % 7.4 % (0.0-8.0); NEUT % 64.7 % (16.0-70.0); PLATELET COUNT 84 TH/MM3 (150-450); RED BLOOD COUNT 2.46 MIL/MM3 (4.00-5.30); RED CELL DISTRIBUTION WIDTH 20.5 % (11.6-17.2); WHITE BLOOD COUNT 5.2 TH/MM3 (4.0-11.0)
[2016-10-05 07:14] LABS: HEMO FLAGS AUTO DIFF
[2016-10-05 07:59] LABS: ACANTHOCYTES 1+ (NORMAL); PLATELET ESTIMATE SMEAR LOW (NORMAL); PLATELET MORPHOLOGY NORMAL (NORMAL); SCAN/DIFF AUTO DIFF CONFIRMED
[2016-10-05 08:07] VITALS: BP 120/69; PULSE 100; RESP 16; TEMP 97.7; O2SAT 97
--- NOTE | 2016-10-05 10:00 | PD.RAD ---
Post US Procedure Prog Note Pre Procedure Diagnosis: (1) Ascites Post Procedure Diagnosis: (1) Ascites Procedure Date: Oct 05, 2016 Supervising Radiologist: Tanner Arce Proceduralist/Assist: Rona Wong RDMS Anesthesia: Local Plan of Activity Patient to Unit: Nursing Unit Patient Condition: Fair See PACS Report for procedural detail/treatment Drainage Procedure Procedure 1 Imaging Guidance: Ultrasound Side: Right Procedure Type: Paracentesis Fluid Removal (CCs): 4800 Fluid Description: Clear, Yellow Tanner Arce MD Oct 05, 2016 10:00
--- NOTE | 2016-10-05 10:07 | RADRPT ---
EXAM DATE/TIME: 10/05/2016 08:03 [place] COMPARISON: US GUIDED ABD PARACENTESIS, September 18, 2016, 13:52. INDICATIONS : Ascites. MEDICAL HISTORY : Cirrhosis. Portal hypertension. ETOH. SURGICAL HISTORY : section. Cholecystectomy. Exploratory laporoscopy. ENCOUNTER: Subsequent ACUITY: 1 day PAIN SCORE: 0/10 LOCATION: Right lower quadrant FLUID: Total volume of 4,800 cc of clear, yellow fluid was removed. Fluid was discarded. Paracentesis was therapeutic only. Post procedure scanning reveals no hematoma or other complication. TECHNIQUE: 1. Ultrasound guidance for abdominal paracentesis. 2. Paracentesis. The risks, benefits, and alternatives to ultrasound guided paracentesis were explained to the patient in detail including the risk of bleeding and infection. Written and verbal informed consent was obt ained. With the patient on the ultrasound table, ultrasound imaging was used to select the most appropriate approach for paracentesis. Overlying skin was prepped and draped in the usual sterile fashion and wi th a local anesthetic, a dermatotomy was made with an 11 blade scalpel. A 6 [place] [id number] ca theter was introduced into the peritoneal cavity and fluid was collected. The patient tolerated the procedure well and left the ultrasound suite in stable condition. CONCLUSION: Uncomplicated ultrasound guided paracentesis. Tanner Arce MD on October 05, 2016 at 9:55 Board Certified Radiologist. This report was verified electronically.
[2016-10-05 11:00] VITALS: BP 113/76; PULSE 113; RESP 16; O2SAT 98
[2016-10-05] MEDS: SODIUM CHLORIDE 0.9% FLUSH 10 ML FLUSH IV FLUSH SCH ×2 (11:09→20:45)
--- NOTE | 2016-10-05 12:05 | HHI.HP ---
[facility] No Primary Care Physician Admission Diagnosis fever, chest pain, headache, pancreatitis Diagnoses: Chief Complaint: abdominal pain, shortness of breath Travel History International Travel<30 Days: No Contact w/Intl Traveler <30 Da: No Traveled to Known Affected Are: No History of Present Illness Written by Arlene Hooks, acting as scribe for Dr. Sellers on 10/05/16 at 12:10. 41-year-old female with history of alcoholic liver cirrhosis, chronic anemia, thrombocytopenia, alcohol abuse, presents with a 3 day history of worsening shortness of breath, abdominal pain/distention, and chest pains. The patient reports she first started to notice shortness of breath, worse with exertion, unable to take a deep breath. She also noticed worsening abdominal distention and leg swelling since her last paracentesis done 09/18/16 removed 4900cc. She reports diffuse abdominal pain, unable to localize. Denies nausea/vomiting or diarrhea. She denies fevers but reports that she has chills "a lot". Over the past week she has had a cough productive of blood tinged sputum. She also reports last night around 10:30pm she began having chest pains located across the anterior chest with radiation down the arm, described as constant sharp pains, associated with shortness of breath. She reports compliance with her medications recently. She reports her last drink of alcohol was on 09/18. She denies any other medical complaints. Review of Systems Except as stated in HPI: all other systems reviewed are Neg Past Family Social History Past Medical History alcoholic liver cirrhosis Past Surgical History Paracentesis Ex-lap Cholecystectomy x3 Reported Medications Ranitidine (Ranitidine HCl) 150 Mg Tab 150 Mg PO DAILY Spironolactone 100 Mg Tab 100 Mg PO DAILY Pantoprazole (Pantoprazole Sodium) 40 Mg Tab 40 Mg PO DAILY Lasix (Furosemide) 40 Mg Tab 80 Mg PO BID Vitamin B-1 (Thiamine HCl) 250 Mg Tab 250 Mg PO DAILY Folic Acid 1 Mg Tablet 1 Mg PO DAILY Pentoxifylline ER (Pentoxifylline) 400 Mg Tab 400 Mg PO Q8HR Chlordiazepoxide HCl 5 Mg Capsule 5 Mg PO DIRECTED taper Multi For Her 50+ (Multiple Vitamins W/ Minerals) 1 Tab Tab 1 Tab PO DAILY Allergies: Coded Allergies: Morphine (Verified Adverse Reaction, Mild, Nausea/Vomiting, 10/04/16) Active Ordered Medications Current Medications Medications (Trade) Dose Ordered Sig/Ric Route Start Time Stop Time Status Last Admin (NS Flush) 2 ml UNSCH PRN IV FLUSH 10/05/16 00:00 (NS Flush) 2 ml BID IV FLUSH 10/05/16 09:00 10/05/16 11:09 (Narcan Inj) 0.4 mg UNSCH PRN IV 10/05/16 00:00 (Roxicodone) 5 mg Q6H PRN PO 10/05/16 14:30 Hydromorphone HCl 0.2 mg 0.2 mg Q4H PRN IV PUSH 10/05/16 14:30 (Rocephin Inj/NS Inj) 100 ml @ 200 mls/hr Q12H IV 10/05/16 15:45 UNV (Xifaxan) 550 mg BID PO 10/05/16 21:00 UNV (Aldactone) 50 mg BID@09,18 PO 10/05/16 18:00 UNV Family History Denies any significant family history of heart disease, liver disease, or lung problems. Social History Prior heavy alcohol use, reportedly quit for awhile, relapsed , last drink 09/18 Denies any tobacco or illicit drug use Physical Exam Vital Signs Vital Signs Date Time Temp Pulse Resp B/P Pulse Ox O2 Delivery O2 Flow Rate FiO2 10/05/16 11:00 113 16 113/76 98 Room Air 10/05/16 08:07 97.7 100 16 120/69 97 10/05/16 05:56 98.7 95 16 123/75 98 Room Air 10/05/16 00:34 99 16 113/73 99 Room Air 10/04/16 23:20 112 14 122/68 98 Room Air 10/04/16 22:31 96 20 97 Room Air 10/04/16 21:51 98.5 130 18 133/58 95 Room Air Physical Exam GENERAL: Well-nourished, well-developed middle aged female patient in [facility]. SKIN: Warm and dry. No rash. HEAD: Normocephalic. Atraumatic. EYES: Pupils equal and round. No scleral icterus. No injection or drainage. ENT: No nasal bleeding or discharge. Mucous membranes pink and moist. NECK: Supple. Trachea midline. CARDIOVASCULAR: Regular rate and rhythm. S1, S2 noted. No murmur appreciated. RESPIRATORY: No accessory muscle use. Clear to auscultation. Breath sounds equal bilaterally. GASTROINTESTINAL: Abdomen soft, diffuse TTP, mild distention, minimal ascites s/ p paracentesis. Normoactive bowel sounds x4. MUSCULOSKELETAL: No obvious deformities. 2+ bilateral lower extremity edema. NEUROLOGICAL: Awake and alert. No obvious cranial nerve deficits. Motor grossly within normal limits. Normal speech. PSYCHIATRIC: Slightly anxious; insight and judgment normal. Laboratory Laboratory Tests Test 10/04/16 10/05/16 10/05/16 22:33 05:55 06:36 Prothrombin Time 18.0 18.7 Prothromb Time International 1.6 1.7 Ratio Activated Partial 30.9 Thromboplast Time Ammonia 65 White Blood Count 5.3 5.2 Red Blood Count 2.61 2.46 Hemoglobin 9.6 8.9 Hematocrit 28.4 26.5 Mean Corpuscular Volume 108.6 107.8 Mean Corpuscular Hemoglobin 36.6 36.4 Mean Corpuscular Hemoglobin 33.7 33.8 Concent Red Cell Distribution Width 21.0 20.5 Platelet Count 89 84 Mean Platelet Volume 7.0 7.0 Neutrophils (%) (Auto) 65.5 64.7 Lymphocytes (%) (Auto) 23.8 24.9 Monocytes (%) (Auto) 8.2 7.4 Eosinophils (%) (Auto) 1.2 1.5 Basophils (%) (Auto) 1.3 1.5 Neutrophils # (Auto) 3.5 3.4 Lymphocytes # (Auto) 1.3 1.3 Monocytes # (Auto) 0.4 0.4 Eosinophils # (Auto) 0.1 0.1 Basophils # (Auto) 0.1 0.1 CBC Comment AUTO DIFF AUTO DIFF Differential Comment AUTO DIFF AUTO DIFF CONFIRMED CONFIRMED Platelet Estimate LOW LOW Platelet Morphology Comment NORMAL NORMAL Acanthocytes 1+ 1+ Keratocytes OCC Sodium Level 143 142 Potassium Level 3.6 3.9 Chloride Level 111 112 Carbon Dioxide Level 23.6 21.5 Anion Gap 8 9 Blood Urea Nitrogen 5 5 Creatinine 0.82 0.65 Estimat Glomerular Filtration 78 101 Rate Random Glucose 113 103 Calcium Level 7.7 7.7 Total Bilirubin 6.1 Aspartate Amino Transf 55 (AST/SGOT) Alanine Aminotransferase 19 (ALT/SGPT) Alkaline Phosphatase 97 Total Creatine Kinase 81 60 Troponin I LESS THAN 0.02 LESS THAN 0.02 Total Protein 6.2 Albumin 2.3 Lipase 319 Ethyl Alcohol Level LESS THAN 3 Result Diagram: 10/05/16 0636 10/05/16 0555 Imaging Last Impressions Cyst Biopsy Asp-Paracentesis US 10/05/16 0000 Signed Impressions: Service Date/Time: September 08:03 - CONCLUSION: Uncomplicated ultrasound guided paracentesis. Tanner Arce MD Chest X-Ray 10/04/16 0000 Signed Impressions: Service Date/Time: Tuesday, October 04, 2016 22:15 - CONCLUSION: 1. Mild basal atelectasis. No effusion or pneumothorax. Cliff Montez MD Assessment and Plan Problem List: (1) Ascites ICD Code: R18.8 Status: Acute (2) Cirrhosis of liver ICD Code: K74.60 Status: Acute (3) Chest pain ICD Code: R07.9 Status: Acute (4) Shortness of breath ICD Code: R06.02 Status: Acute (5) History of alcohol abuse ICD Code: Z87.898 Status: Chronic Assessment and Plan 41-year-old female with history of alcoholic liver cirrhosis, chronic anemia, thrombocytopenia, alcohol abuse, presents with a 3 day history of worsening shortness of breath, abdominal pain/distention, and chest pains. Alcoholic Liver Cirrhosis with Ascites: associated SOB, abdominal pain, chest pains. Need to rule out SBP. -S/p U/S guided paracentesis 10/05 removed 4800cc of clear yellow fluid, however no fluid sent for studies -Start on IV Rocephin, Rifaximin 550mg bid, Spironolactone 50mg bid -Give IV Albumin 25% 25GM bid and Lasix 20mg bid -GI consulted, appreciate recommendations -Supportive treatment with antiemetics and pain control with oxycodone prn and IV dilaudid 0.2mg prn breakthrough pain -monitor for improvement Atypical Chest Pain/Shortness of Breath: suspect secondary to significant ascites on presentation. -ACS ruled out with negative serial cardiac enzymes x3 and EKG without acute ischemic changes -monitor on telemetry -symptoms improved s/p paracentesis -continue to monitor Alcohol Abuse: patient reports her last drink was 09/18, denies any recent intake. Etoh level 3. -counseled on continued cessation -patient states Librium made her drowsy and unsteady; she states drinking alcohol makes her more steady -start thiamine/folate/MV Macrocytic Anemia/Thrombocytopenia: secondary to liver disease. No active bleeding. -monitor CBC -avoid antiplatelets Hyperammonemia: ammonia 65, patient currently AAOx4 however drowsy at times -start on lactulose 30ml bid -monitor DVT Prophylaxis: teds/SCDs, avoid chemoprophylaxis with thrombocytopenia Physician Certification 2 Midnight Certification Type: Admission for Inpatient Services Order for Inpatient Services The services are ordered in accordance with Medicare regulations or non- Medicare payer requirements, as applicable. In the case of services not specified as inpatient-only, they are appropriately provided as inpatient services in accordance with the 2-midnight benchmark. Estimated LOS (days): 3 days is the estimated time the patient will need to remain in the hospital, assuming treatment plan goals are met and no additional complications. Post-Hospital Plan: Home Notes: This note was transcribed by [email or web address] [Arlene Hooks]. I, Dr. Theodore Sellers personally performed the history, physical exam, and medical decision making; and confirmed the accuracy of the information in the transcribed note. Authenticated by Dr. Theodore Sellers on 10/06/16 at 09:14. Problem Qualifiers (1) Ascites: Qualified Code: K70.31 - Ascites due to alcoholic cirrhosis (2) Chest pain: Qualified Code: R07.9 - Chest pain, unspecified type Arlene Hooks PA-C Oct 05, 2016 12:05 Theodore Sellers MD Oct 06, 2016 09:14
[2016-10-05 13:04] LABS: CREATINE KINASE 51 U/L (26-192)
--- NOTE | 2016-10-05 14:55 | EKG ---
Date Performed: 10/04/2016 Time Performed: 22:42:16 PTAGE: 41 years EKG: Sinus rhythm POOR R WAVE PROGRESSION. POSSIBLE ANTERIOR MYOCARDIAL INFARCTION VERSES LEAD PLACEMENT. BORDERLINE E CG PREVIOUS TRACING : 08/06/2016 18.18 DOCTOR: Eliud Sarmiento Interpretating Date/Time 10/05/2016 14:55:34
--- NOTE | 2016-10-05 14:58 | EKG ---
Date Performed: 10/05/2016 Time Performed: 05:48:48 PTAGE: 41 years EKG: Sinus rhythm POOR R WAVE PROGRESSION. POSSIBLE ANTERIOR MYOCARDIAL INFARCTION Can not exclude old anterior infarc t. Since previous tracing, no significant change noted BORDERLINE ECG PREVIOUS TRACING : 10/04/2016 22.42 DOCTOR: Eliud Sarmiento Interpretating Date/Time 10/05/2016 14:57:03
--- NOTE | 2016-10-05 15:32 | PD.CONS ---
HPI History of Present Illness This is a 41 year old female patient who has alcoholic hepatitis. She was discharged from the hospital a few weeks ago and has continued to abstain from alcohol but she returned to emergency because of abdominal distension and shortness of breath. She had paracentesis performed and 5 liters removed. She feels improved but still complains of substernal pain, constant, dull and pressure like pain. She reports having some elevated temps at home. She feels fatigued and has trouble sleeping at night. She has been evaluated for viral hepatitis and was negative last admission. ROS: denies headache. No rash. No leg or arm pains. No vomiting. No hematemesis or melena. Otherwise complete ros is negative. PFSH Past Medical History alcoholic liver cirrhosis Past Surgical History Paracentes in the recent past was negative for infection. Coded Allergies: Morphine (Verified Adverse Reaction, Mild, Nausea/Vomiting, 10/04/16) Medications Current Medications Medications (Trade) Dose Ordered Sig/Ric Route Start Time Stop Time Status Last Admin (NS Flush) 2 ml UNSCH PRN IV FLUSH 10/05/16 00:00 (NS Flush) 2 ml BID IV FLUSH 10/05/16 09:00 10/05/16 11:09 (Narcan Inj) 0.4 mg UNSCH PRN IV 10/05/16 00:00 (Roxicodone) 5 mg Q6H PRN PO 10/05/16 14:30 (Dilaudid Pf Inj) 0.2 mg Q4H PRN IV PUSH 10/05/16 14:30 Social History She cares for her 5 YO grandson. She does not have much help at home. 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 GI Exam Vitals I&O Vital Signs Date Time Temp Pulse Resp B/P Pulse Ox O2 Delivery O2 Flow Rate FiO2 10/05/16 11:00 113 16 113/76 98 Room Air 10/05/16 08:07 97.7 100 16 120/69 97 10/05/16 05:56 98.7 95 16 123/75 98 Room Air 10/05/16 00:34 99 16 113/73 99 Room Air 10/04/16 23:20 112 14 122/68 98 Room Air 10/04/16 22:31 96 20 97 Room Air 10/04/16 21:51 98.5 130 18 133/58 95 Room Air Laboratory Test 10/04/16 10/05/16 10/05/16 10/05/16 22:33 05:55 06:36 12:00 Prothrombin Time 18.0 SEC 18.7 SEC Prothromb Time International 1.6 RATIO 1.7 RATIO Ratio Activated Partial 30.9 SEC Thromboplast Time Ammonia 65 MCMOL/L White Blood Count 5.3 TH/MM3 5.2 TH/MM3 Red Blood Count 2.61 MIL/MM3 2.46 MIL/MM3 Hemoglobin 9.6 GM/DL 8.9 GM/DL Hematocrit 28.4 % 26.5 % Mean Corpuscular Volume 108.6 FL 107.8 FL Mean Corpuscular Hemoglobin 36.6 PG 36.4 PG Mean Corpuscular Hemoglobin 33.7 % 33.8 % Concent Red Cell Distribution Width 21.0 % 20.5 % Platelet Count 89 TH/MM3 84 TH/MM3 Mean Platelet Volume 7.0 FL 7.0 FL Neutrophils (%) (Auto) 65.5 % 64.7 % Lymphocytes (%) (Auto) 23.8 % 24.9 % Monocytes (%) (Auto) 8.2 % 7.4 % Eosinophils (%) (Auto) 1.2 % 1.5 % Basophils (%) (Auto) 1.3 % 1.5 % Neutrophils # (Auto) 3.5 TH/MM3 3.4 TH/MM3 Lymphocytes # (Auto) 1.3 TH/MM3 1.3 TH/MM3 Monocytes # (Auto) 0.4 TH/MM3 0.4 TH/MM3 Eosinophils # (Auto) 0.1 TH/MM3 0.1 TH/MM3 Basophils # (Auto) 0.1 TH/MM3 0.1 TH/MM3 CBC Comment AUTO DIFF AUTO DIFF Differential Comment AUTO DIFF AUTO DIFF CONFIRMED CONFIRMED Platelet Estimate LOW LOW Platelet Morphology Comment NORMAL NORMAL Acanthocytes 1+ 1+ Keratocytes OCC Sodium Level 143 MEQ/L 142 MEQ/L Potassium Level 3.6 MEQ/L 3.9 MEQ/L Chloride Level 111 MEQ/L 112 MEQ/L Carbon Dioxide Level 23.6 MEQ/L 21.5 MEQ/L Anion Gap 8 MEQ/L 9 MEQ/L Blood Urea Nitrogen 5 MG/DL 5 MG/DL Creatinine 0.82 MG/DL 0.65 MG/DL Estimat Glomerular Filtration 78 ML/MIN 101 ML/MIN Rate Random Glucose 113 MG/DL 103 MG/DL Calcium Level 7.7 MG/DL 7.7 MG/DL Total Bilirubin 6.1 MG/DL Aspartate Amino Transf 55 U/L (AST/SGOT) Alanine Aminotransferase 19 U/L (ALT/SGPT) Alkaline Phosphatase 97 U/L Total Creatine Kinase 81 U/L 60 U/L 51 U/L Troponin I LESS THAN 0.02 LESS THAN 0.02 LESS THAN 0.02 NG/ML NG/ML NG/ML Total Protein 6.2 GM/DL Albumin 2.3 GM/DL Lipase 319 U/L Ethyl Alcohol Level LESS THAN 3 MG/DL Physical Examination HEENT: Jaundiced. NECK: Neck is supple, no JVD, no lymphadenopathy. CHEST: Chest is clear to auscultation and percussion. CARDIAC: Regular rate and rhythm with no murmur gallop or rubs. ABDOMEN: Soft, nondistended, mildly tender; bowel sounds are present in all four quadrants. EXTREMITIES: No cyanosis SKIN: Normal; no rash; moderate jaundice TEST EVALUATOR: No focal deficits; alert and oriented times three. Mood: anxious and tearful Assessment and Plan Plan Imp: Alcohol hepatitis. Bilirubin is higher than at time of last admission. Paracentesis today of 5 liters, but no fluid sent for testing. Rule out SBP Encephalopathy Ascites, edema Rec: Begin Ceftriaxone 1gm IV BID Supportive measures Lactulose Xifaxan Spironolactone. Repeat paracentesis when enough fluid is available. Jose Barnhart MD Oct 05, 2016 15:32
[2016-10-05] MEDS: LACTULOSE SYRUP 20 GM/30 ML CUP PO SCH (17:13)
[2016-10-05] MEDS: ALBUMIN HUMAN 25% 25 GM/100 ML BAGP IV SCH (17:14)
[2016-10-05] MEDS: cefTRIAXone INJ 1,000 MG in SODIUM CHLORIDE 0.9% INJ 100 ML IV SCH (17:14)
[2016-10-05] MEDS: THIAMINE INJ 100 MG in SODIUM CHLORIDE 0.9% INJ 100 ML IV SCH (18:38)
[2016-10-05] MEDS: methylPREDNISolone SOD SUCC 40 MG/1 ML VIAL IV SCH (18:38)
[2016-10-05] MEDS: FUROSEMIDE 20 MG TAB PO SCH (18:38)
[2016-10-05] MEDS: SPIRONOLACTONE 50 MG TAB PO SCH (18:38)
[2016-10-05 20:05] VITALS: BP 114/61; PULSE 97; RESP 19; TEMP 98.2; O2SAT 94
[2016-10-05] MEDS: RIFAXIMIN 550 MG TAB PO SCH (20:44)
[2016-10-05 22:05] LABS: BLOOD, URINE NEG (NEG); COMMENT (UR) CULTURE INDICATED; CULTURE IF INDICATED CULTURE INDICATED; GLUCOSE,URINE NEG (NEG); KETONE, URINE NEG (NEG); MUCUS URINE MANY /lpf (OCC); NITRITE,URINE NEG (NEG); SQUAMOUS EPITHELIAL CELL URINE 13 /hpf (0-5)
[2016-10-05 22:06] LABS: URINE COLOR LIGHT-BROWN (YELLW/STRAW)
[2016-10-05 22:50] VITALS: PULSE 98
[2016-10-06] VITALS (8 sets, daily range): BP systolic 103–135; BP diastolic 56–65; PULSE 70–109; RESP 16–20; TEMP 97.2–98.2; O2SAT 94–98
[2016-10-06] MEDS: cefTRIAXone INJ 1,000 MG in SODIUM CHLORIDE 0.9% INJ 100 ML IV SCH ×2 (05:10→17:47)
[2016-10-06] MEDS: ALBUMIN HUMAN 25% 25 GM/100 ML BAGP IV SCH ×2 (05:10→16:17)
[2016-10-06 06:29] LABS: BASOPHIL % 0.3 % (0.0-2.0); EOSINOPHIL % 0.1 % (0.0-4.0); HEMATOCRIT 28.4 % (35.0-46.0); LYMPH % 11.7 % (9.0-44.0); LYMPHOCYTE # 0.6 TH/MM3 (1.0-4.8); MEAN CELL VOLUME 107.6 FL (80.0-100.0); MEAN CORPUSCULAR HEMOGLOBIN 36.9 PG (27.0-34.0); MEAN CORPUSCULAR HGB CONC 34.3 % (32.0-36.0); MONO % 2.7 % (0.0-8.0); NEUT % 85.2 % (16.0-70.0); PLATELET COUNT 79 TH/MM3 (150-450); RED BLOOD COUNT 2.63 MIL/MM3 (4.00-5.30); RED CELL DISTRIBUTION WIDTH 20.2 % (11.6-17.2); WHITE BLOOD COUNT 4.7 TH/MM3 (4.0-11.0)
[2016-10-06 06:40] LABS: ALT (GPT) 18 U/L (10-53); ANION GAP 8 MEQ/L (5-15); AST (GOT) 45 U/L (15-37); BICARBONATE 21.9 MEQ/L (21.0-32.0); BLOOD UREA NITROGEN 6 MG/DL (7-18); CHLORIDE 111 MEQ/L (98-107); GLOMERULAR FILTRATION RATE 93 ML/MIN (>89); MAGNESIUM 2.1 MG/DL (1.5-2.5); POTASSIUM 4.2 MEQ/L (3.5-5.1); SODIUM (NA) 141 MEQ/L (136-145)
[2016-10-06 06:43] LABS: ALKALINE PHOSPHATASE 70 U/L (45-117); TOTAL BILIRUBIN ADULT 6.5 MG/DL (0.2-1.0)
[2016-10-06 07:13] LABS: HEMO FLAGS AUTO DIFF
[2016-10-06 07:16] LABS: ACANTHOCYTES 1+ (NORMAL); PLATELET ESTIMATE SMEAR LOW (NORMAL); PLATELET MORPHOLOGY NORMAL (NORMAL); SCAN/DIFF AUTO DIFF CONFIRMED
[2016-10-06] MEDS: LACTULOSE SYRUP 20 GM/30 ML CUP PO SCH ×2 (09:21→18:22)
[2016-10-06] MEDS: SPIRONOLACTONE 50 MG TAB PO SCH ×2 (09:21→18:22)
[2016-10-06] MEDS: FOLIC ACID 1 MG TAB PO SCH (09:22)
[2016-10-06] MEDS: FUROSEMIDE 20 MG TAB PO SCH (09:22)
[2016-10-06] MEDS: methylPREDNISolone SOD SUCC 40 MG/1 ML VIAL IV SCH (09:24)
[2016-10-06] MEDS: MULTIVITAMINS/MINERALS THERAPEUTIC TAB PO SCH (09:24)
[2016-10-06] MEDS: SODIUM CHLORIDE 0.9% FLUSH 10 ML FLUSH IV FLUSH SCH ×2 (09:24→21:19)
[2016-10-06] MEDS: RIFAXIMIN 550 MG TAB PO SCH ×2 (10:21→21:19)
--- NOTE | 2016-10-06 10:41 | HHI.PR ---
Subjective Remarks Follow-up for shortness of breath, abdominal pain, ascites. The patient states that abdominal pain was somewhat relieved yesterday after paracentesis, but became worse again overnight. She locates the pain in the epigastric region and in the right lower quadrant. She states that overnight she got short of breath again especially when lying flat. She hasn't put out much urine with diuresis, reports she has only urinated twice over the last day. She does report feeling cold with subjective chills. Discussed with gastroenterology, Dr. Barnhart, recommends continuing IV antibiotics and perform diagnostic paracentesis when fluid re-accumulates. Objective Vitals Vital Signs Date Time Temp Pulse Resp B/P Pulse Ox O2 Delivery O2 Flow Rate FiO2 10/06/16 04:25 97.8 90 18 103/58 95 10/06/16 00:05 98.2 95 16 108/56 94 10/05/16 22:50 98 10/05/16 20:05 98.2 97 19 114/61 94 10/05/16 11:00 113 16 113/76 98 Room Air I/O 10/05/16 10/05/16 10/05/16 10/06/16 10/06/16 10/06/16 07:00 15:00 23:00 07:00 15:00 23:00 Intake Total 480 ml Output Total 150 ml Balance 330 ml Intake Oral 480 ml Output Urine Total 150 ml Result Diagram: 10/06/16 0600 10/06/16 0608 Imaging Last Impressions Cyst Biopsy Asp-Paracentesis US 10/05/16 0000 Signed Impressions: Service Date/Time: September 08:03 - CONCLUSION: Uncomplicated ultrasound guided paracentesis. Tanner Arce MD Chest X-Ray 10/04/16 0000 Signed Impressions: Service Date/Time: Tuesday, October 04, 2016 22:15 - CONCLUSION: 1. Mild basal atelectasis. No effusion or pneumothorax. Cliff Montez MD Objective Remarks GENERAL: Well-developed well-nourished. In no acute distress. SKIN: Warm and dry. Slightly jaundiced appearing. HEENT: Normocephalic. Pupils equal and round. Mucous membranes pink and moist. CARDIOVASCULAR: Regular rate and rhythm. No murmur appreciated. RESPIRATORY: No accessory muscle use. Clear to auscultation. Breath sounds equal bilaterally. GASTROINTESTINAL: Abdomen soft, mildly distended, generalized TTP. Bowel sounds x4. MUSCULOSKELETAL: No obvious deformities. No clubbing or cyanosis. 1+ bilateral lower extremity pitting edema. NEUROLOGICAL: Awake and alert. No focal neurological deficits. Moves upper and lower extremities spontaneously. Normal speech. PSYCHIATRIC: Appropriate mood and affect; insight and judgment normal. A/P Problem List: (1) Cirrhosis of liver ICD Code: K74.60 Status: Acute (2) Chest pain ICD Code: R07.9 Status: Acute (3) Shortness of breath ICD Code: R06.02 Status: Acute (4) History of alcohol abuse ICD Code: Z87.898 Status: Chronic Assessment and Plan 41-year-old female with history of alcoholic liver cirrhosis, chronic anemia, thrombocytopenia, alcohol abuse, presents with a 3 day history of worsening shortness of breath, abdominal pain/distention, and chest pains. Alcoholic Liver Cirrhosis with Ascites: Possible spontaneous bacterial peritonitis. -S/p U/S guided paracentesis 10/05 removed 4800cc of clear yellow fluid, however no fluid sent for studies -Continue on IV Rocephin, and performed diagnostic paracentesis with fluid reaccumulate -Continue Rifaximin 550mg bid, Spironolactone 50mg bid -Diuresis with IV Lasix with IV albumin -GI consulted, appreciate recommendations -Supportive treatment with antiemetics and pain control with oxycodone prn and IV dilaudid 0.2mg prn breakthrough pain Atypical Chest Pain: Seems more epigastric./Shortness of Breath: suspect secondary to significant ascites on presentation. -ACS ruled out with negative serial cardiac enzymes x3 and EKG without acute ischemic changes -monitor on telemetry -Start ppi Shortness of breath: Suspect secondary to abdominal distention from ascites. Reviewed: Chest x-ray with mild basilar atelectasis, no effusion or pneumothorax. -Continue diuresis as above, monitor I's and O'sad -Incentive spirometry -O2 and Nebs as needed -Check echocardiogram Alcohol Abuse: patient reports her last drink was 09/18, denies any recent intake. Etoh level 3. -counseled on continued cessation -thiamine/folate/MV Macrocytic Anemia/Thrombocytopenia/coagulopathy w/ INR 1.7: Secondary to liver disease. No active bleeding. -monitor CBC, appears stable at this time -avoid antiplatelets/anticoagulants -Check B12 and folate Hyperammonemia: ammonia 65, patient currently AAOx4 however drowsy at times -started on lactulose 30ml bid -monitor Abnormal UA: Possible UTI. Continue empiric antibiotics as above. Follow-up urine culture. DVT Prophylaxis: teds, avoid chemoprophylaxis with thrombocytopenia Discharge Planning Continue treating empirically for SBP and follow-up results of diagnostic paracentesis. Attending Statement 10/06/16 paracentesis performed at bedside. consent signed. direct US confirmation. sterile technique, chloraprep x2. 18 guage IV catheter. 80cc dark straw colored ascites.small dressing placed. Problem Qualifiers (1) Cirrhosis of liver: Qualified Code: K70.31 - Alcoholic cirrhosis of liver with ascites (2) Chest pain: Qualified Code: R07.9 - Chest pain, unspecified type Km [place] Oct 06, 2016 10:41 Theodore Sellers MD Oct 07, 2016 10:05
[2016-10-06] MEDS ORDERED: RESP: ALBUTEROL 1.25 MG/3 ML NEB (PRN) NEB (10:45)
[2016-10-06] MEDS: PANTOPRAZOLE SOD 40 MG DELAYED RELEASE TAB PO SCH (13:03)
--- NOTE | 2016-10-06 14:50 | HHI.GIFU ---
Subjective Remarks Not feeling well, has headache and head feels hot. No chills. Abdomen is getting more distended. Somewhat tender. No vomiting. Her initial paracentesis was therapeutic only. Will re order for diagnostic and therapeutic if possible. Objective Vitals I&O Vital Signs Date Time Temp Pulse Resp B/P Pulse Ox O2 Delivery O2 Flow Rate FiO2 10/06/16 12:20 97.8 90 20 111/65 96 10/06/16 12:00 18 10/06/16 04:25 97.8 90 18 103/58 95 10/06/16 00:05 98.2 95 16 108/56 94 10/05/16 22:50 98 10/05/16 20:05 98.2 97 19 114/61 94 I/O 10/05/16 10/05/16 10/05/16 10/06/16 10/06/16 10/06/16 07:00 15:00 23:00 07:00 15:00 23:00 Intake Total 480 ml Output Total 150 ml Balance 330 ml Intake Oral 480 ml Output Urine Total 150 ml Laboratory Laboratory Tests Test 10/05/16 10/06/16 10/06/16 21:30 06:00 06:08 Urine Color LIGHT-BROWN Urine Turbidity HAZY Urine pH 6.0 Urine Specific [place] 1.020 Urine Protein TRACE Urine Glucose (UA) NEG Urine Ketones NEG Urine Occult Blood NEG Urine Nitrite NEG Urine Bilirubin MOD Urine Urobilinogen 4.0 Urine Leukocyte Esterase MOD Urine RBC 24 Urine WBC 18 Urine Squamous Epithelial 13 Cells Urine Mucus MANY Microscopic Urinalysis Comment CULTURE INDICATED White Blood Count 4.7 Red Blood Count 2.63 Hemoglobin 9.7 Hematocrit 28.4 Mean Corpuscular Volume 107.6 Mean Corpuscular Hemoglobin 36.9 Mean Corpuscular Hemoglobin 34.3 Concent Red Cell Distribution Width 20.2 Platelet Count 79 Mean Platelet Volume 7.0 Neutrophils (%) (Auto) 85.2 Lymphocytes (%) (Auto) 11.7 Monocytes (%) (Auto) 2.7 Eosinophils (%) (Auto) 0.1 Basophils (%) (Auto) 0.3 Neutrophils # (Auto) 4.0 Lymphocytes # (Auto) 0.6 Monocytes # (Auto) 0.1 Eosinophils # (Auto) 0.0 Basophils # (Auto) 0.0 CBC Comment AUTO DIFF Differential Comment AUTO DIFF CONFIRMED Platelet Estimate LOW Platelet Morphology Comment NORMAL Acanthocytes 1+ Sodium Level 141 Potassium Level 4.2 Chloride Level 111 Carbon Dioxide Level 21.9 Anion Gap 8 Blood Urea Nitrogen 6 Creatinine 0.70 Estimat Glomerular Filtration 93 Rate Random Glucose 155 Calcium Level 7.9 Magnesium Level 2.1 Total Bilirubin 6.5 Aspartate Amino Transf 45 (AST/SGOT) Alanine Aminotransferase 18 (ALT/SGPT) Alkaline Phosphatase 70 Total Protein 5.8 Albumin 2.2 Vitamin B12 Level 1810 Folate 14.2 Date/Time Procedure Status Source Growth 10/05/16 21:30 Urine Culture - Preliminary Resulted Urine Clean Catch NO GROWTH IN 24 HOURS. Physical Exam HEENT: Jaundice NECK: Neck is supple, no JVD, no lymphadenopathy. CHEST: Chest is clear to auscultation and percussion. CARDIAC: Regular rate and rhythm with no murmur gallop or rubs. ABDOMEN: Soft, distended and appears to have fluid. EXTREMITIES: No clubbing, cyanosis SKIN: jaundice BAND SALVAGER: No focal deficits; alert and oriented times three. Mood: grumpy Assessment and Plan Plan Imp: Alcohol hepatitis. Bilirubin is higher than at time of last admission. Paracentesis today of 5 liters, but no fluid sent for testing. Rule out SBP Encephalopathy Ascites, edema Rec: Order repeat paracentesis for diagnosis and possible repeat therapeutic. Begin Ceftriaxone 1gm IV BID Supportive measures Lactulose Xifaxan Spironolactone. Repeat paracentesis when enough fluid is available. Jose Barnhart MD Oct 06, 2016 14:50
--- NOTE | 2016-10-06 16:49 | EKG ---
Date Performed: 10/05/2016 Time Performed: 12:16:57 PTAGE: 41 years EKG: SINUS TACHYCARDIA LOW QRS VOLTAGE IN PRECORDIAL LEADS Compared to previous tracing, there's improvement in the R forces in V3 and V4. Otherwise no significant change ABNORMAL RHYTHM ECG NO PREVIOUS TRACING DOCTOR: Abe Fitzgerald Interpretating Date/Time 10/06/2016 16:47:24
[2016-10-06] MEDS: FUROSEMIDE 20 MG/2 ML VIAL IV PUSH SCH (18:21)
[2016-10-06 18:34] LABS: PERITONEAL WBC 121 /MM3 (0-10)
[2016-10-06 18:35] LABS: PERITONEAL HISTIOCYTES 65 %; PERITONEAL LYMPHS 14 %; PERITONEAL MESOTHELIAL 13 %; PERITONEAL MONOS 2 %; PERITONEAL POLYS(SEGS) 6 %
[2016-10-06] MEDS: THIAMINE INJ 100 MG in SODIUM CHLORIDE 0.9% INJ 100 ML IV SCH (19:09)
[2016-10-06] MEDS: HYDROmorphone HCL PF 1 MG/ML VIAL IV PUSH PRN (22:50)
[2016-10-07] VITALS (12 sets, daily range): BP systolic 106–121; BP diastolic 58–76; PULSE 86–101; RESP 12–19; TEMP 96.5–98.7; O2SAT 95–99
[2016-10-07 00:04] LABS: APTT (PATIENT) 30.6 SEC (24.3-30.1); INTERNATIONAL NORMALIZED RATIO 1.9 RATIO; PROTHROMBIN TIME - PATIENT 22.1 SEC (9.8-11.6)
[2016-10-07] MEDS: HYDROmorphone HCL PF 1 MG/ML VIAL IV PUSH PRN ×2 (04:29→16:41)
[2016-10-07] MEDS: cefTRIAXone INJ 1,000 MG in SODIUM CHLORIDE 0.9% INJ 100 ML IV SCH ×2 (04:30→17:44)
[2016-10-07] MEDS: PANTOPRAZOLE SOD 40 MG DELAYED RELEASE TAB PO SCH (08:42)
[2016-10-07] MEDS: MULTIVITAMINS/MINERALS THERAPEUTIC TAB PO SCH (08:42)
[2016-10-07] MEDS: methylPREDNISolone SOD SUCC 40 MG/1 ML VIAL IV SCH (08:42)
[2016-10-07] MEDS: ALBUMIN HUMAN 25% 25 GM/100 ML BAGP IV SCH ×2 (08:42→16:41)
[2016-10-07] MEDS: LACTULOSE SYRUP 20 GM/30 ML CUP PO SCH ×3 (08:43→17:47)
[2016-10-07] MEDS: FOLIC ACID 1 MG TAB PO SCH (08:43)
[2016-10-07] MEDS: SODIUM CHLORIDE 0.9% FLUSH 10 ML FLUSH IV FLUSH SCH ×2 (08:45→21:35)
[2016-10-07] MEDS: RIFAXIMIN 550 MG TAB PO SCH ×2 (08:52→21:34)
[2016-10-07] MEDS: SPIRONOLACTONE 50 MG TAB PO SCH ×2 (08:52→17:44)
[2016-10-07] MEDS: FUROSEMIDE 20 MG/2 ML VIAL IV PUSH SCH ×2 (11:00→17:44)
--- NOTE | 2016-10-07 11:40 | HHI.GIFU ---
Subjective Remarks Pt resting in bed. says she feels better. Had good night sleep last night with oxygen supplementation. Says she has a hard time speaking. EAting well. + BM. (Blanka Reynoso) Objective Vitals I&O Vital Signs Date Time Temp Pulse Resp B/P Pulse Ox O2 Delivery O2 Flow Rate FiO2 10/07/16 10:51 97.1 86 14 114/68 97 10/07/16 08:00 97.4 95 18 117/76 96 10/07/16 04:07 90 10/07/16 04:00 97.0 95 19 106/63 95 10/07/16 00:07 100 10/07/16 00:00 96.5 97 19 119/72 97 10/06/16 22:54 100 114/57 10/06/16 21:35 103 10/06/16 20:45 97.7 109 20 135/64 97 10/06/16 20:10 98 10/06/16 17:13 97.2 70 18 118/56 96 10/06/16 12:20 97.8 90 20 111/65 96 10/06/16 12:00 18 I/O 10/06/16 10/06/16 10/06/16 10/07/16 10/07/16 10/07/16 06:59 14:59 22:59 06:59 14:59 22:59 Intake Total 240 ml 480 ml Output Total 40 ml 700 ml 100 ml Balance 200 ml -220 ml -100 ml Intake Oral 240 ml 480 ml Output Urine Total 700 ml 100 ml Other 40 ml # Voids 1 # Bowel Movements 1 Laboratory Laboratory Tests Test 10/06/16 10/06/16 15:00 23:00 Peritoneal Fluid WBC 121 Peritoneal Fluid RBC 3498 Peritoneal Fluid Neutrophils 6 Peritoneal Fluid Lymphocytes 14 Peritoneal Fluid Monocytes 2 Peritoneal Fluid Mesothelial 13 Cells Peritoneal Fluid Histiocytes 65 Peritoneal Fluid Total Protein 0.9 Peritoneal Fluid Albumin 0.4 Peritoneal Fluid LDH 66 Peritoneal Fluid Glucose 204 Prothrombin Time 22.1 Prothromb Time International 1.9 Ratio Activated Partial 30.6 Thromboplast Time Date/Time Procedure Status Source Growth 10/06/16 15:00 Gram Stain - Final Resulted Fluid Peritoneal Fluid 10/06/16 15:00 Body Fluid Culture Resulted Fluid Peritoneal Fluid Pending 10/05/16 21:30 Urine Culture - Preliminary Resulted Urine Clean Catch NO GROWTH IN 24 HOURS. Imaging Last Impressions Cyst Biopsy Asp-Paracentesis US 10/05/16 0000 Signed Impressions: Service Date/Time: September 08:03 - CONCLUSION: Uncomplicated ultrasound guided paracentesis. Tanner Arce MD Chest X-Ray 10/04/16 0000 Signed Impressions: Service Date/Time: Tuesday, October 04, 2016 22:15 - CONCLUSION: 1. Mild basal atelectasis. No effusion or pneumothorax. Cliff Montez MD Physical Exam HEENT: Jaundice CHEST: Chest is clear to auscultation and percussion. CARDIAC: Regular rate and rhythm with no murmur gallop or rubs. ABDOMEN: Soft, distended and appears to have fluid. EXTREMITIES: No clubbing, cyanosis + mild edema BLE SKIN: jaundice BATTERY PLATE REMOVER: lethargic (Blanka Reynoso) Assessment and Plan Plan ASSESSMENT - Alcohol hepatitis - came with ascites. Bilirubin is higher than at time of last admission. DF 53. MELD [place] 17, UNOS 21 s/p paracentesis of 5 liters, but no fluid sent for testing, will repeat when able for diagnostic, Rule out SBP - Encephalopathy - lethargic today PLAN - await repeat paracentesis for diagnosis and possible repeat therapeutic. - continue ancef - increase lactulose to TID - rck NH - start pentoxifylline - continue diuretics - continue rifaximin - Supportive measures This pt seen by myself and Dr Grullon and this note is written on his behalf ( Blanka Reynoso) Plan patient was seen and examined, agree with above note, we will start Pentoxifylline, monitor liver function tests. (Manolo Grullon MD) Blanka Reynoso Oct 07, 2016 11:40 Manolo Grullon MD Oct 07, 2016 13:47
[2016-10-07] MEDS: PENTOXIFYLLINE 400 MG CONTROLLED RELEASE TAB PO SCH ×2 (15:25→21:34)
[2016-10-07] MEDS: THIAMINE INJ 100 MG in SODIUM CHLORIDE 0.9% INJ 100 ML IV SCH (15:28)
--- NOTE | 2016-10-07 18:56 | MB ---
cc: MOUNIKA SELLERS MD, RUBY ANNE E. M.D. DATE OF CONSULTATION 10/07/16 1975 DATE OF SERVICE 10/07/[address] Sellers CHIEF COMPLAINT Dr. Sellers requests a consultation for Ms. Saucedo regarding family history of ovarian cancer and elevated CA-125. HISTORY OF PRESENT ILLNESS Ms. Saucedo is a 41-year-old woman, well-known patient to hematology service. She was recently seen by my partner, Dr. Jordan Olivera, on 09/18/2016. She has a history of alcohol abuse, liver cirrhosis, alcoholic liver disease, chronic anemia and thrombocytopenia. She has ascites requiring paracentesis multiple times. She presented to the emergency room with complaints of chest pain and shortness of breath. She had respiratory symptoms and therefore required a therapeutic paracentesis. She was admitted for overnight observation. During her evaluation, she was found to have a macrocytic anemia, platelet count of 79,000 which is chronic. Shows ferritin in the normal range. Serum B12 level that is elevated. Renal function is normal. Laboratory evaluation included a CA-125 which was 932. For this reason, Hematology/Oncology is consulted. Review of the electronic medical record shows CT scan of the abdomen on 09/18/[address] scan the month prior. There is moderate amount of ascites. The liver contours indicate cirrhosis. The uterus is normal. There is no evidence of pelvic mass to suggest ovarian pathology. She has known 2 cm low density lesion within the left lower lobe of the liver which is stable. She was advised to follow up in hematology clinic. She has not done so. She reports new resolve to stop drinking. She had an exacerbation on August 29. She started drinking again there. Since her last admission, she has stopped drinking and feels that she is headed in the right direction. She is resolved to get better and see grandchildren. She complains of having bruising. Her abdomen is still distended. She denies any nausea. She admits to having dizziness and fogginess. Her memory is not as good. She is told by her EMT son and nurse daughter that she has kidney failure and will need dialysis. Her creatinine is noted normal. Her questions regarding dialysis were answered. She denies any bleeding. No melena or bright red blood per rectum. She has not had a period in several months. She reports to be skipping her cycles at times of stress. The rest of her review of systems is negative. PAST MEDICAL HISTORY 1. Alcohol abuse 2. Alcoholic liver disease, 3. Chronic anemia of chronic thrombocytopenia, 4. Splenomegaly, 5. Ascites, 6. Abdominal varices 7. Liver cirrhosis, 8. Portal hypertension, 9. Diabetes type 2. PAST SURGICAL HISTORY 1. Cholecystectomy. 2. x3 3. Appendectomy. FAMILY HISTORY Reports mother had ovarian cancer. SOCIAL HISTORY Alcohol abuse. She reports stopped drinking. She denies any tobacco or illicit drug use. Ethyl alcohol noted to be less than three during this admission. ALLERGIES MORPHINE MEDICATIONS Current, 1. Thiamine 2. Pentoxifylline 3. Lactulose. 4. Albumin. 5. Lasix. 6. Protonix. 7. Albuterol. 8. Folic acid 9. Theragran N 10. Dilaudid 11. Aldactone. 12. Ceftriaxone 13. Solu-Medrol. 14. Oxycodone. PHYSICAL EXAMINATION VITAL SIGNS: Temperature 98.7, heart rate 98, respiratory rate 12, blood pressure 116/63, saturation 95%. GENERAL: Ms. Saucedo is a well-developed, well-nourished woman who looks her stated age. She seems to be foggy, has trouble remembering at times. She is awake, alert, oriented and cooperative. HEENT: Her pupils are round, reactive to light and accommodation. Oropharynx is clear. Sclerae nonicteric. LUNGS: Clear to auscultation. CARDIOVASCULAR: Normal rate, rhythm. ABDOMEN: Distended with striae, fluid wave is appreciated. LOWER EXTREMITIES: Mild asymmetry of right leg more prominent than the left. There is bilateral pitting edema. LABORATORY DATA As described above. IMAGING STUDIES As described above. ASSESSMENT/PLAN Ms. Saucedo is a 41-year-old woman with alcoholic liver disease and complications thereof. She has stopped drinking, at least for the past month. She is determined to recover. She desires detox on an outpatient basis. She seems to be compliant now with her medication. She states that the small blue pill is helping her. Hematology/Oncology is consulted for elevated CA-125. We discussed the nonspecific elevation. This is often elevated in patients with peritoneal disease and ascites such as she had. She has recently had a paracentesis also. Imaging study argues against underlying ovarian malignancy. We discussed concern in light of her mother's history of ovarian cancer. She would be a candidate for genetic testing. However, her liver disease is a more pressing concern. We discussed plans to continue to monitor. No specific therapy is required for the elevated CA-125. She is encouraged to follow up with Dr. Olivera on an outpatient basis in hematology. We discussed compliance with her physician for her detox. Apparently, she is seeing a psychiatrist. She is encouraged to continue her efforts to stop drinking and allow her liver function to improve. Her questions were answered to her satisfaction. MD PORFIRIO Thapa/ /6:04 PM /6:21 PM MTDJulienne
--- NOTE | 2016-10-07 23:14 | HHI.PR ---
Subjective Remarks Patient seen this morning around 11 AM. Denies any chest pain or shortness of breath. Reports abdominal pain slightly improved, however still feels generally unwell.. Objective Vital Signs Date Time Temp Pulse Resp B/P Pulse Ox O2 Delivery O2 Flow Rate FiO2 10/07/16 20:00 98.1 99 18 116/58 97 10/07/16 17:42 121/68 99 10/07/16 16:30 96 10/07/16 16:00 98.7 98 12 116/63 95 10/07/16 12:06 91 10/07/16 10:51 97.1 86 14 114/68 97 10/07/16 08:25 93 10/07/16 08:00 97.4 95 18 117/76 96 10/07/16 04:07 90 10/07/16 04:00 97.0 95 19 106/63 95 10/07/16 00:07 100 10/07/16 00:00 96.5 97 19 119/72 97 I/O 10/06/16 10/06/16 10/06/16 10/07/16 10/07/16 10/07/16 07:00 15:00 23:00 07:00 15:00 23:00 Intake Total 240 ml 480 ml 821 ml 441 ml Output Total 40 ml 700 ml 100 ml Balance 200 ml -220 ml 721 ml 441 ml Intake Oral 240 ml 480 ml 821 ml IV Total 441 ml Output Urine Total 700 ml 100 ml Other 40 ml # Voids 1 3 # Bowel Movements 1 0 Result Diagram: 10/06/16 0600 10/06/16 0608 Objective Remarks GENERAL: patient lying in bed. Appears Generally uncomfortable. SKIN: Warm and dry. HEAD: Normocephalic. EYES: No scleral icterus. No injection or drainage. NECK: Supple, trachea midline. No JVD or lymphadenopathy. CARDIOVASCULAR: Regular rate and rhythm without murmurs, gallops, or rubs. RESPIRATORY: Breath sounds equal bilaterally. No accessory muscle use. GASTROINTESTINAL: Abdomen soft, moderate tenderness to palpation. MUSCULOSKELETAL: No cyanosis, or edema. BACK: Nontender without obvious deformity. No CVA tenderness. A/P Assessment and Plan =====10/07/16 Labs reviewed. No signs of SBP on fluid analysis, however slightly bloody fluid , indicative of possible ovarian cancer. CEA 125 ordered and 923.9. Oncology consult. 41-year-old female with history of alcoholic liver cirrhosis, chronic anemia, thrombocytopenia, alcohol abuse, presents with a 3 day history of worsening shortness of breath, abdominal pain/distention, and chest pains. //Alcoholic Liver Cirrhosis with Ascites: Possible spontaneous bacterial peritonitis. -S/p U/S guided paracentesis 10/05 removed 4800cc of clear yellow fluid, however no fluid sent for studies -Continue on IV Rocephin, and performed diagnostic paracentesis with fluid reaccumulate -Continue Rifaximin 550mg bid, Spironolactone 50mg bid -Diuresis with IV Lasix with IV albumin -GI consulted, appreciate recommendations -Supportive treatment with antiemetics and pain control with oxycodone prn and IV dilaudid 0.2mg prn breakthrough pain //Atypical Chest Pain: Seems more epigastric./Shortness of Breath: suspect secondary to significant ascites on presentation. -ACS ruled out with negative serial cardiac enzymes x3 and EKG without acute ischemic changes -monitor on telemetry -Start ppi //Shortness of breath: Suspect secondary to abdominal distention from ascites. Reviewed: Chest x-ray with mild basilar atelectasis, no effusion or pneumothorax. -Continue diuresis as above, monitor I's and O'sad -Incentive spirometry -O2 and Nebs as needed -Check echocardiogram //Alcohol Abuse: patient reports her last drink was 09/18, denies any recent intake. Etoh level 3. -counseled on continued cessation -thiamine/folate/MV //Macrocytic Anemia/Thrombocytopenia/coagulopathy w/ INR 1.7: Secondary to liver disease. No active bleeding. -monitor CBC, appears stable at this time -avoid antiplatelets/anticoagulants -Check B12 and folate //Hyperammonemia: ammonia 65, patient currently AAOx4 however drowsy at times -started on lactulose 30ml bid -monitor //Abnormal UA: Possible UTI. Continue empiric antibiotics as above. Follow-up urine culture. DVT Prophylaxis: teds, avoid chemoprophylaxis with thrombocytopenia Theodore Sellers MD Oct 07, 2016 23:14
[2016-10-08] VITALS: BP 116/60; PULSE 104; PULSE 93; RESP 19; TEMP 97.9; O2SAT 96
[2016-10-08] MEDS: HYDROmorphone HCL PF 1 MG/ML VIAL IV PUSH PRN ×4 (00:35→20:24)
[2016-10-08 04:00] VITALS: BP 116/58; PULSE 91; PULSE 95; RESP 19; TEMP 97.4; O2SAT 96
[2016-10-08] MEDS: PENTOXIFYLLINE 400 MG CONTROLLED RELEASE TAB PO SCH ×3 (05:18→22:46)
[2016-10-08] MEDS: cefTRIAXone INJ 1,000 MG in SODIUM CHLORIDE 0.9% INJ 100 ML IV SCH ×2 (05:18→15:26)
[2016-10-08 08:00] VITALS: BP 114/59; PULSE 93; RESP 20; TEMP 97.5; O2SAT 97
--- NOTE | 2016-10-08 08:30 | HHI.PR ---
Subjective Remarks This is a pleasant 41 y/o Female with Alcoholic Liver Cirrhosis, Chronic anemia , thrombocytopenia, alcohol abuse, who came to ER with Shortness of breath, Abdominal distention and leg swelling, status post paracentesis, 09/18/16 removed 4900 ml of fluid, Consulted oil fire specialist due to Family history of Ovarian Cancer and Elevated CA-125 , patient status post multiple Therapeutic paracentesis as per oil fire specialist CA-125 is often elevated in patients with peritoneal disease and ascites, no concerning imaging for Ovarian Cancer, recommended to follow with oil fire specialist as outpatient Doctor Jarod. 10/08: Seen in her bedroom no complaint by patient, continue distended, GI specialist following. no nausea vomit or diarrhea. Objective Vital Signs Date Time Temp Pulse Resp B/P Pulse Ox O2 Delivery O2 Flow Rate FiO2 10/08/16 05:09 21 10/08/16 04:00 97.4 95 19 116/58 96 10/08/16 04:00 91 10/08/16 00:00 104 10/08/16 00:00 97.9 93 19 116/60 96 10/07/16 20:00 98.1 99 18 116/58 97 10/07/16 20:00 101 10/07/16 17:42 121/68 99 10/07/16 16:30 96 10/07/16 16:00 98.7 98 12 116/63 95 10/07/16 12:06 91 10/07/16 10:51 97.1 86 14 114/68 97 I/O 10/07/16 10/07/16 10/07/16 10/08/16 10/08/16 10/08/16 07:00 15:00 23:00 07:00 15:00 23:00 Intake Total 480 ml 821 ml 921 ml Output Total 700 ml 100 ml 450 ml 400 ml Balance -220 ml 721 ml 471 ml -400 ml Intake Oral 480 ml 821 ml 480 ml IV Total 441 ml Output Urine Total 700 ml 100 ml 450 ml 400 ml # Voids 3 # Bowel Movements 0 2 2 Result Diagram: 10/06/16 0600 10/06/16 0608 Imaging Last Impressions Cyst Biopsy Asp-Paracentesis US 10/05/16 0000 Signed Impressions: Service Date/Time: September 08:03 - CONCLUSION: Uncomplicated ultrasound guided paracentesis. Tanenr Arce MD Chest X-Ray 10/04/16 0000 Signed Impressions: Service Date/Time: Tuesday, October 04, 2016 22:15 - CONCLUSION: 1. Mild basal atelectasis. No effusion or pneumothorax. Cliff Montez MD Procedures Paracentesis Other Results Laboratory Tests Test 10/04/16 10/05/16 10/05/16 10/06/16 22:33 12:00 21:30 06:00 Ammonia 65 MCMOL/L Keratocytes OCC Lipase 319 U/L Ethyl Alcohol Level LESS THAN 3 MG/DL Total Creatine Kinase 51 U/L Troponin I LESS THAN 0.02 NG/ML Urine Color LIGHT-BROWN Urine Turbidity HAZY Urine pH 6.0 Urine Specific Mona 1.020 Urine Protein TRACE mg/dL Urine Glucose (UA) NEG mg/dL Urine Ketones NEG mg/dL Urine Occult Blood NEG Urine Nitrite NEG Urine Bilirubin MOD Urine Urobilinogen 4.0 MG/DL Urine Leukocyte Esterase MOD Urine RBC 24 /hpf Urine WBC 18 /hpf Urine Squamous Epithelial 13 /hpf Cells Urine Mucus MANY /lpf Microscopic Urinalysis Comment CULTURE INDICATED White Blood Count 4.7 TH/MM3 Red Blood Count 2.63 MIL/MM3 Hemoglobin 9.7 GM/DL Hematocrit 28.4 % Mean Corpuscular Volume 107.6 FL Mean Corpuscular Hemoglobin 36.9 PG Mean Corpuscular Hemoglobin 34.3 % Concent Red Cell Distribution Width 20.2 % Platelet Count 79 TH/MM3 Mean Platelet Volume 7.0 FL Neutrophils (%) (Auto) 85.2 % Lymphocytes (%) (Auto) 11.7 % Monocytes (%) (Auto) 2.7 % Eosinophils (%) (Auto) 0.1 % Basophils (%) (Auto) 0.3 % Neutrophils # (Auto) 4.0 TH/MM3 Lymphocytes # (Auto) 0.6 TH/MM3 Monocytes # (Auto) 0.1 TH/MM3 Eosinophils # (Auto) 0.0 TH/MM3 Basophils # (Auto) 0.0 TH/MM3 CBC Comment AUTO DIFF Differential Comment AUTO DIFF CONFIRMED Platelet Estimate LOW Platelet Morphology Comment NORMAL Acanthocytes 1+ Test 10/06/16 10/06/16 10/06/16 10/07/16 06:08 15:00 23:00 11:10 Sodium Level 141 MEQ/L Potassium Level 4.2 MEQ/L Chloride Level 111 MEQ/L Carbon Dioxide Level 21.9 MEQ/L Anion Gap 8 MEQ/L Blood Urea Nitrogen 6 MG/DL Creatinine 0.70 MG/DL Estimat Glomerular Filtration 93 ML/MIN Rate Random Glucose 155 MG/DL Calcium Level 7.9 MG/DL Magnesium Level 2.1 MG/DL Total Bilirubin 6.5 MG/DL Aspartate Amino Transf 45 U/L (AST/SGOT) Alanine Aminotransferase 18 U/L (ALT/SGPT) Alkaline Phosphatase 70 U/L Lactate Dehydrogenase 319 U/L Total Protein 5.6 GM/DL Albumin 2.2 GM/DL Vitamin B12 Level 1810 PG/ML Folate 14.2 NG/ML Peritoneal Fluid WBC 121 /MM3 Peritoneal Fluid RBC 3498 /MM3 Peritoneal Fluid Neutrophils 6 % Peritoneal Fluid Lymphocytes 14 % Peritoneal Fluid Monocytes 2 % Peritoneal Fluid Mesothelial 13 % Cells Peritoneal Fluid Histiocytes 65 % Peritoneal Fluid Total Protein 0.9 GM/DL Peritoneal Fluid Albumin 0.4 G/DL Peritoneal Fluid LDH 66 U/L Peritoneal Fluid Glucose 204 MG/DL Prothrombin Time 22.1 SEC Prothromb Time International 1.9 RATIO Ratio Activated Partial 30.6 SEC Thromboplast Time CA 125 Antigen 923.9 U/ML Objective Remarks GENERAL: No acute distress. SKIN: Warm and dry. HEAD: Normocephalic. EYES: No scleral icterus. No injection or drainage. NECK: Supple, trachea midline. No JVD or lymphadenopathy. CARDIOVASCULAR: Regular rate and rhythm without murmurs, gallops, or rubs. RESPIRATORY: Breath sounds equal bilaterally. No accessory muscle use. GASTROINTESTINAL: Abdomen soft, Distended. positive bowel sounds. MUSCULOSKELETAL: No cyanosis, or edema. BACK: Nontender without obvious deformity. No CVA tenderness. Medications and IVs Current Medications Medications (Trade) Dose Ordered Sig/Ric Route Start Time Stop Time Status Last Admin (NS Flush) 2 ml UNSCH PRN IV FLUSH 10/05/16 00:00 (NS Flush) 2 ml BID IV FLUSH 10/05/16 09:00 10/07/16 21:35 (Narcan Inj) 0.4 mg UNSCH PRN IV 10/05/16 00:00 (Roxicodone) 5 mg Q6H PRN PO 10/05/16 14:30 10/08/16 05:19 Hydromorphone HCl 0.2 mg 0.2 mg Q4H PRN IV PUSH 10/05/16 14:30 10/08/16 00:35 (Rocephin Inj/NS Inj) 100 ml @ 200 mls/hr Q12H IV 10/05/16 17:00 10/08/16 05:18 (Xifaxan) 550 mg BID PO 10/05/16 21:00 10/07/16 21:34 (Aldactone) 50 mg BID@,18 PO 10/05/16 18:00 10/07/16 17:44 (SoluMEDROL INJ) 40 mg DAILY IV 10/05/16 17:00 10/07/16 08:42 (Folate) 1 mg DAILY PO 10/06/16 09:00 10/11/16 08:59 10/07/16 08:43 Multivitamins/ Minerals Therapeutic 1 tab 1 tab DAILY PO 10/06/16 09:00 10/11/16 08:59 10/07/16 08:42 (Thiamine Inj/NS Inj) 101 ml @ 100 mls/hr Q24H IV 10/05/16 18:00 10/08/16 17:59 10/07/16 15:28 (Vitamin B1) 100 mg DAILY PO 10/09/16 09:00 (Albumin 25% Inj) 25 gm BID@ IV 10/07/16 09:00 10/07/16 16:41 (Lasix Inj) 20 mg BID@,18 IV PUSH 10/06/16 18:00 10/07/16 17:44 (Protonix) 40 mg DAILY PO 10/06/16 10:45 10/07/16 08:42 (Lactulose Liq) 30 ml TID PO 10/07/16 13:00 10/07/16 17:47 (TRENtal SR) 400 mg Q8HR PO 10/07/16 14:00 10/08/16 05:18 A/P Assessment and Plan 41-year-old female with history of alcoholic liver cirrhosis, chronic anemia, thrombocytopenia, alcohol abuse, presents with a 3 day history of worsening shortness of breath, abdominal pain/distention, and chest pains. //Alcoholic Liver Cirrhosis with Ascites: Possible spontaneous bacterial peritonitis. -S/p U/S guided paracentesis 10/05 removed 4800cc of clear yellow fluid, however no fluid sent for studies -Continue on IV Rocephin, and performed diagnostic paracentesis with fluid reaccumulate -Continue Rifaximin 550mg bid, Spironolactone 50mg bid -Diuresis with IV Lasix with IV albumin -GI consulted, appreciate recommendations -Supportive treatment with antiemetics and pain control with oxycodone prn and IV dilaudid 0.2mg prn breakthrough pain //Atypical Chest Pain: Seems more epigastric./Shortness of Breath: suspect secondary to significant ascites on presentation. -ACS ruled out with negative serial cardiac enzymes x3 and EKG without acute ischemic changes -monitor on telemetry -Start ppi //Shortness of breath: Suspect secondary to abdominal distention from ascites. Reviewed: Chest x-ray with mild basilar atelectasis, no effusion or pneumothorax. -Continue diuresis as above, monitor I's and O'sad -Incentive spirometry -O2 and Nebs as needed -Check echocardiogram //Alcohol Abuse: patient reports her last drink was 09/18, denies any recent intake. Etoh level 3. -counseled cessation -thiamine/folate/MV //Macrocytic Anemia/Thrombocytopenia/coagulopathy w/ INR 1.9: Secondary to liver disease. No active bleeding. -monitor CBC, appears stable at this time -avoid antiplatelets/anticoagulants -Check B12 and folate //Hyperammonemia: ammonia 65, patient currently AAOx4 however drowsy at times -continue on lactulose 30ml bid -monitor //Abnormal UA: Possible UTI. Continue empiric antibiotics as above. Follow-up urine culture. DVT Prophylaxis: teds, avoid chemoprophylaxis with thrombocytopenia Discharge Planning Once cleared by specialists. Tuan Hatfield MD Oct 08, 2016 08:30
[2016-10-08] MEDS: SODIUM CHLORIDE 0.9% FLUSH 10 ML FLUSH IV FLUSH SCH ×2 (09:00→20:27)
[2016-10-08] MEDS: MULTIVITAMINS/MINERALS THERAPEUTIC TAB PO SCH (09:09)
[2016-10-08] MEDS: FOLIC ACID 1 MG TAB PO SCH (09:09)
[2016-10-08] MEDS: PANTOPRAZOLE SOD 40 MG DELAYED RELEASE TAB PO SCH (09:09)
[2016-10-08] MEDS: SPIRONOLACTONE 50 MG TAB PO SCH ×2 (09:09→17:35)
[2016-10-08] MEDS: RIFAXIMIN 550 MG TAB PO SCH ×2 (09:09→20:32)
[2016-10-08] MEDS: methylPREDNISolone SOD SUCC 40 MG/1 ML VIAL IV SCH (09:10)
[2016-10-08] MEDS: LACTULOSE SYRUP 20 GM/30 ML CUP PO SCH ×3 (09:10→17:36)
[2016-10-08] MEDS: FUROSEMIDE 20 MG/2 ML VIAL IV PUSH SCH ×2 (09:10→17:36)
[2016-10-08] MEDS: ALBUMIN HUMAN 25% 25 GM/100 ML BAGP IV SCH ×2 (09:11→15:26)
--- NOTE | 2016-10-08 11:50 | PD.ONC.PN ---
Subjective Subjective Remarks Afebrile overnight She complains of being cold Has some abdominal pain and right hip pain Objective Data Date Time Temp Pulse Resp B/P Pulse Ox O2 Delivery O2 Flow Rate FiO2 10/08/16 05:09 21 10/08/16 04:00 97.4 95 19 116/58 96 10/08/16 04:00 91 10/08/16 00:00 104 10/08/16 00:00 97.9 93 19 116/60 96 10/07/16 20:00 98.1 99 18 116/58 97 10/07/16 20:00 101 10/07/16 17:42 121/68 99 10/07/16 16:30 96 10/07/16 16:00 98.7 98 12 116/63 95 10/07/16 12:06 91 10/08/16 10/08/16 10/08/16 07:00 15:00 23:00 Output Total 400 ml Balance -400 ml Result Diagram: 10/06/16 0600 10/06/16 0608 Culture Results Microbiology Date/Time Procedure Status Source Growth 10/05/16 21:30 Urine Culture - Final Complete Urine Clean Catch 50-100,000 CFU/ML MIXED GRAM POSITIVE... 10/06/16 15:00 Gram Stain - Final Resulted Fluid Peritoneal Fluid 10/06/16 15:00 Body Fluid Culture - Preliminary Resulted Fluid Peritoneal Fluid NO GROWTH IN 48 HOURS. Administered Medications Medications (Trade) Dose Ordered Sig/Ric Route PRN Reason Start Time Stop Time Status Last Admin Dose Admin Sodium Chloride (NS Flush) 2 ml BID IV FLUSH 10/05/16 09:00 10/08/16 09:00 Oxycodone HCl (Roxicodone) 5 mg Q6H PRN PO pain scale 3-10 10/05/16 14:30 10/08/16 05:19 Hydromorphone HCl 0.2 mg 0.2 mg Q4H PRN IV PUSH breakthrough pain 10/05/16 14:30 10/08/16 09:10 Ceftriaxone Sodium/Sodium Chloride (Rocephin Inj/NS Inj) 100 ml @ 200 mls/hr Q12H IV 10/05/16 17:00 10/08/16 05:18 Rifaximin (Xifaxan) 550 mg BID PO 10/05/16 21:00 10/08/16 09:09 Spironolactone (Aldactone) 50 mg BID@ PO 10/05/16 18:00 10/08/16 09:09 Methylprednisolone Sodium Succinate (SoluMEDROL INJ) 40 mg DAILY IV 10/05/16 17:00 10/08/16 09:10 Folic Acid (Folate) 1 mg DAILY PO 10/06/16 09:00 10/11/16 08:59 10/08/16 09:09 Multivitamins/ Minerals Therapeutic 1 tab 1 tab DAILY PO 10/06/16 09:00 10/11/16 08:59 10/08/16 09:09 Thiamine HCl/ Sodium Chloride (Thiamine Inj/NS Inj) 101 ml @ 100 mls/hr Q24H IV 10/05/16 18:00 10/08/16 17:59 10/07/16 15:28 Albumin Human (Albumin 25% Inj) 25 gm BID@ IV 10/07/16 09:00 10/08/16 09:11 Furosemide (Lasix Inj) 20 mg BID@ IV PUSH 10/06/16 18:00 10/08/16 09:10 Pantoprazole Sodium (Protonix) 40 mg DAILY PO 10/06/16 10:45 10/08/16 09:09 Lactulose (Lactulose Liq) 30 ml TID PO 10/07/16 13:00 10/08/16 09:10 Pentoxifylline (TRENtal SR) 400 mg Q8HR PO 10/07/16 14:00 10/08/16 05:18 Objective Remarks GENERAL: Young female resting in bed asleep in no acute distress SKIN: Warm and dry. HEAD: Normocephalic. EYES: No injection or drainage. NECK: Supple, trachea midline. CARDIOVASCULAR: + S1/S2 RESPIRATORY: Breath sounds equal bilaterally. No accessory muscle use. GASTROINTESTINAL: Abdomen distended with positive fluid wave. Dressing to right lower quadrant from previous paracentesis EXTREMITIES: No cyanosis, or edema. NEUROLOGICAL: No obvious focal deficit. Awake, alert, and oriented x3. Assessment/Plan Problem List: (1) Ascites Status: Acute Plan: -- Patient had an elevated CA 125 at 932 -- There was concern for possible ovarian cancer -- The elevation is likely due to her liver disease and associated peritoneal effusions -- CT abdomen and pelvis from August 2016 showed no obvious mass in pelvis Assessment 41 y/o female with liver disease found to have an elevated CA-125 Plan 1. Patient was encouraged to quit drinking. She has quit in the past but unfortunately resumed her alcohol intake in the last month. 2. She will follow-up as outpatient with Dr. Olivera. 3. Supportive care Attending Statement The exam, history, and the medical decision-making described in the above note were completed with the assistance of the mid-level provider. I reviewed and agree with the findings presented. I attest that I had a [id number] encounter with the patient on the same day, and personally performed and documented my assessment and findings in the medical record. Wants to go home. OK for DC from heme/onc standpoint. Discussed continue to abstain from ETOH. FU w/ Dr. Melissa for anemia and elevated CA 125. Pt may benefit from genetic testing. Problem Qualifiers (1) Ascites: Qualified Code: K70.31 - Ascites due to alcoholic cirrhosis Shona Sr Oct 08, 2016 11:50 Marleen Arias MD Oct 08, 2016 12:07
[2016-10-08 12:00] VITALS: BP 115/67; PULSE 98; RESP 20; TEMP 97.2; O2SAT 97
[2016-10-08 12:27] LABS: BASOPHIL % 0.3 % (0.0-2.0); EOSINOPHIL # 0.1 TH/MM3 (0-0.4); EOSINOPHIL % 1.1 % (0.0-4.0); HEMATOCRIT 26.5 % (35.0-46.0); LYMPH % 17.3 % (9.0-44.0); LYMPHOCYTE # 0.9 TH/MM3 (1.0-4.8); MEAN CELL VOLUME 107.5 FL (80.0-100.0); MEAN CORPUSCULAR HEMOGLOBIN 36.5 PG (27.0-34.0); MEAN CORPUSCULAR HGB CONC 33.9 % (32.0-36.0); MONO % 5.2 % (0.0-8.0); NEUT % 76.1 % (16.0-70.0); PLATELET COUNT 83 TH/MM3 (150-450); RED BLOOD COUNT 2.46 MIL/MM3 (4.00-5.30); RED CELL DISTRIBUTION WIDTH 19.5 % (11.6-17.2); WHITE BLOOD COUNT 5.2 TH/MM3 (4.0-11.0)
[2016-10-08 12:33] LABS: HEMO FLAGS AUTO DIFF
[2016-10-08 12:44] LABS: BICARBONATE 28.3 MEQ/L (21.0-32.0); INDIRECT BILIRUBIN 2.1 MG/DL (0.0-0.8); MAGNESIUM 2.2 MG/DL (1.5-2.5); POTASSIUM 3.5 MEQ/L (3.5-5.1); TOTAL BILIRUBIN ADULT 4.7 MG/DL (0.2-1.0)
[2016-10-08 12:59] LABS: ACANTHOCYTES OCC (NORMAL); PLATELET ESTIMATE SMEAR LOW (NORMAL); PLATELET MORPHOLOGY NORMAL (NORMAL); SCAN/DIFF AUTO DIFF CONFIRMED
[2016-10-08 16:00] VITALS: BP 110/58; PULSE 96; RESP 20; TEMP 97.4; O2SAT 97
--- NOTE | 2016-10-08 16:16 | HHI.GIFU ---
Subjective Remarks Lying in bed in no apparent distress. States she wants to go home. Denies abdominal pain. Reports abdominal distention is improving. Tolerating diet. Denies nausea or vomiting. (Cha Harris) Objective Vitals I&O Vital Signs Date Time Temp Pulse Resp B/P Pulse Ox O2 Delivery O2 Flow Rate FiO2 10/08/16 12:00 97.2 98 20 115/67 97 10/08/16 08:00 97.5 93 20 114/59 97 10/08/16 05:09 21 10/08/16 04:00 97.4 95 19 116/58 96 10/08/16 04:00 91 10/08/16 00:00 104 10/08/16 00:00 97.9 93 19 116/60 96 10/07/16 20:00 98.1 99 18 116/58 97 10/07/16 20:00 101 10/07/16 17:42 121/68 99 10/07/16 16:30 96 10/07/16 16:00 98.7 98 12 116/63 95 I/O 10/07/16 10/07/16 10/07/16 10/08/16 10/08/16 10/08/16 06:59 14:59 22:59 06:59 14:59 22:59 Intake Total 480 ml 821 ml 921 ml 480 ml Output Total 700 ml 100 ml 450 ml 400 ml 600 ml Balance -220 ml 721 ml 471 ml -400 ml -120 ml Intake Oral 480 ml 821 ml 480 ml 480 ml IV Total 441 ml Output Urine Total 700 ml 100 ml 450 ml 400 ml 600 ml # Voids 3 # Bowel Movements 0 2 2 1 Laboratory Laboratory Tests Test 10/08/16 11:50 White Blood Count 5.2 Red Blood Count 2.46 Hemoglobin 9.0 Hematocrit 26.5 Mean Corpuscular Volume 107.5 Mean Corpuscular Hemoglobin 36.5 Mean Corpuscular Hemoglobin 33.9 Concent Red Cell Distribution Width 19.5 Platelet Count 83 Mean Platelet Volume 7.2 Neutrophils (%) (Auto) 76.1 Lymphocytes (%) (Auto) 17.3 Monocytes (%) (Auto) 5.2 Eosinophils (%) (Auto) 1.1 Basophils (%) (Auto) 0.3 Neutrophils # (Auto) 4.0 Lymphocytes # (Auto) 0.9 Monocytes # (Auto) 0.3 Eosinophils # (Auto) 0.1 Basophils # (Auto) 0.0 CBC Comment AUTO DIFF Differential Comment AUTO DIFF CONFIRMED Platelet Estimate LOW Platelet Morphology Comment NORMAL Acanthocytes OCC Sodium Level 143 Potassium Level 3.5 Chloride Level 107 Carbon Dioxide Level 28.3 Anion Gap 8 Blood Urea Nitrogen 8 Creatinine 0.80 Estimat Glomerular Filtration 80 Rate Random Glucose 165 Calcium Level 8.4 Phosphorus Level 3.6 Magnesium Level 2.2 Total Bilirubin 4.7 Direct Bilirubin 2.6 Indirect Bilirubin 2.1 Aspartate Amino Transf 54 (AST/SGOT) Alanine Aminotransferase 23 (ALT/SGPT) Alkaline Phosphatase 62 Ammonia 51 Total Protein 6.4 Albumin 3.2 Date/Time Procedure Status Source Growth 10/06/16 15:00 Gram Stain - Final Resulted Fluid Peritoneal Fluid 10/06/16 15:00 Body Fluid Culture - Preliminary Resulted Fluid Peritoneal Fluid NO GROWTH IN 48 HOURS. 10/05/16 21:30 Urine Culture - Final Complete Urine Clean Catch 50-100,000 CFU/ML MIXED GRAM POSITIVE... Imaging Last Impressions Cyst Biopsy Asp-Paracentesis US 10/05/16 0000 Signed Impressions: Service Date/Time: September 08:03 - CONCLUSION: Uncomplicated ultrasound guided paracentesis. Tanner Acre MD Chest X-Ray 10/04/16 0000 Signed Impressions: Service Date/Time: Tuesday, October 04, 2016 22:15 - CONCLUSION: 1. Mild basal atelectasis. No effusion or pneumothorax. Cliff Montez MD Physical Exam HEENT: PERRLA, Normocephalic CHEST: CTA CARDIAC: RRR with no murmur gallop or rubs. ABDOMEN: Distended. Active bowel sounds. EXTREMITIES: No clubbing, cyanosis, no edema SKIN: Warm and dry [employer]: Awake and alert (Cha Harris) Assessment and Plan Plan ASSESSMENT - Alcohol hepatitis, with ascites. Bilirubin is higher than at time of last admission. T. Bili 4.7 (10/08) DF 53. MELD [place] 17, UNOS 21 s/p U/S guided paracentesis 10/05, removed 4800cc of clear yellow fluid, no fluid sent for studies. - Encephalopathy - ammonia 51 (10/08), was 65 (8/) On Lactulose PLAN - Await repeat paracentesis for diagnosis and possible repeat therapeutic. - Continue Ancef - Continue Lactulose - Continue pentoxifylline - Continue diuretics - Continue rifaximin - Supportive care - Further recommendations to follow based on results of above. Patient seen and examined by Dr. Stover and myself and this note is written on his behalf. (Cha Harris) Physician Comments Patient Seen and examined Agree with above Continue with current supportive care Monitor labs Not much to add from a GI perspective at this point we will sign off Once intake is deemed to be appropriate then patient may be discharged from a GI standpoint follow-up as an outpatient (Rick Stover MD) Cha Harris Oct 08, 2016 16:16 Rick Stover MD Oct 08, 2016 22:19
[2016-10-08 20:00] VITALS: BP 128/60; PULSE 92; RESP 20; TEMP 97.4; O2SAT 97
[2016-10-09] VITALS: BP 108/59; PULSE 102; RESP 19; TEMP 99.4; O2SAT 92
[2016-10-09] MEDS: HYDROmorphone HCL PF 1 MG/ML VIAL IV PUSH PRN (02:53)
[2016-10-09] MEDS: cefTRIAXone INJ 1,000 MG in SODIUM CHLORIDE 0.9% INJ 100 ML IV SCH (05:14)
[2016-10-09] MEDS: PENTOXIFYLLINE 400 MG CONTROLLED RELEASE TAB PO SCH (05:14)
[2016-10-09 05:43] LABS: BICARBONATE 29.7 MEQ/L (21.0-32.0); MAGNESIUM 2.4 MG/DL (1.5-2.5); POTASSIUM 3.3 MEQ/L (3.5-5.1)
[2016-10-09 08:00] VITALS: BP 114/58; PULSE 94; RESP 17; TEMP 97.9; O2SAT 95
--- NOTE | 2016-10-09 08:07 | HHI.PR ---
Subjective Remarks This is a pleasant 41 y/o Female with Alcoholic Liver Cirrhosis, Chronic anemia , thrombocytopenia, alcohol abuse, who came to ER with Shortness of breath, Abdominal distention and leg swelling, status post paracentesis, 09/18/16 removed 4900 ml of fluid, Consulted solar project coordination specialist due to Family history of Ovarian Cancer and Elevated CA-125 , patient status post multiple Therapeutic paracentesis as per solar project coordination specialist CA-125 is often elevated in patients with peritoneal disease and ascites, no concerning imaging for Ovarian Cancer, recommended to follow with solar project coordination specialist as outpatient Doctor Jarod. 10/09: Stable in her bedroom, followed by GI specialist Doctor Ck appreciated input, with Diagnosis of Alcoholic Hepatitis Status ost U?S guided paracentesis 10/05, removed 4800 ml or clear yellow fluid , probable to repeat therapeutic paracentesis, continue Ancef, lactulose, Pentoxifylline, diuretics and rifaximin. Objective Vital Signs Date Time Temp Pulse Resp B/P Pulse Ox O2 Delivery O2 Flow Rate FiO2 10/09/16 00:00 99.4 102 19 108/59 92 10/08/16 21:08 18 10/08/16 20:00 97.4 92 20 128/60 97 10/08/16 16:00 97.4 96 20 110/58 97 10/08/16 12:00 97.2 98 20 115/67 97 I/O 10/08/16 10/08/16 10/08/16 10/09/16 10/09/16 10/09/16 06:59 14:59 22:59 06:59 14:59 22:59 Intake Total 480 ml 240 ml 240 ml Output Total 400 ml 600 ml Balance -400 ml -120 ml 240 ml 240 ml Intake Oral 480 ml 240 ml 240 ml IV Total 0 ml Output Urine Total 400 ml 600 ml # Voids 1 2 # Bowel Movements 2 1 0 0 Result Diagram: 10/08/16 1150 10/09/16 0505 Imaging Last Impressions Cyst Biopsy Asp-Paracentesis US 10/05/16 0000 Signed Impressions: Service Date/Time: September 08:03 - CONCLUSION: Uncomplicated ultrasound guided paracentesis. Tanner Arce MD Chest X-Ray 10/04/16 0000 Signed Impressions: Service Date/Time: Tuesday, October 04, 2016 22:15 - CONCLUSION: 1. Mild basal atelectasis. No effusion or pneumothorax. Cliff Montez MD Procedures Paracentesis Other Results Laboratory Tests Test 10/04/16 10/05/16 10/05/16 10/06/16 22:33 12:00 21:30 06:08 Keratocytes OCC Lipase 319 U/L Ethyl Alcohol Level LESS THAN 3 MG/DL Total Creatine Kinase 51 U/L Troponin I LESS THAN 0.02 NG/ML Urine Color LIGHT-BROWN Urine Turbidity HAZY Urine pH 6.0 Urine Specific Carbon 1.020 Urine Protein TRACE mg/dL Urine Glucose (UA) NEG mg/dL Urine Ketones NEG mg/dL Urine Occult Blood NEG Urine Nitrite NEG Urine Bilirubin MOD Urine Urobilinogen 4.0 MG/DL Urine Leukocyte Esterase MOD Urine RBC 24 /hpf Urine WBC 18 /hpf Urine Squamous Epithelial 13 /hpf Cells Urine Mucus MANY /lpf Microscopic Urinalysis Comment CULTURE INDICATED Lactate Dehydrogenase 319 U/L Vitamin B12 Level 1810 PG/ML Folate 14.2 NG/ML Test 10/06/16 10/06/16 10/07/16 10/08/16 15:00 23:00 11:10 11:50 Peritoneal Fluid WBC 121 /MM3 Peritoneal Fluid RBC 3498 /MM3 Peritoneal Fluid Neutrophils 6 % Peritoneal Fluid Lymphocytes 14 % Peritoneal Fluid Monocytes 2 % Peritoneal Fluid Mesothelial 13 % Cells Peritoneal Fluid Histiocytes 65 % Peritoneal Fluid Total Protein 0.9 GM/DL Peritoneal Fluid Albumin 0.4 G/DL Peritoneal Fluid LDH 66 U/L Peritoneal Fluid Glucose 204 MG/DL Prothrombin Time 22.1 SEC Prothromb Time International 1.9 RATIO Ratio Activated Partial 30.6 SEC Thromboplast Time CA 125 Antigen 923.9 U/ML White Blood Count 5.2 TH/MM3 Red Blood Count 2.46 MIL/MM3 Hemoglobin 9.0 GM/DL Hematocrit 26.5 % Mean Corpuscular Volume 107.5 FL Mean Corpuscular Hemoglobin 36.5 PG Mean Corpuscular Hemoglobin 33.9 % Concent Red Cell Distribution Width 19.5 % Platelet Count 83 TH/MM3 Mean Platelet Volume 7.2 FL Neutrophils (%) (Auto) 76.1 % Lymphocytes (%) (Auto) 17.3 % Monocytes (%) (Auto) 5.2 % Eosinophils (%) (Auto) 1.1 % Basophils (%) (Auto) 0.3 % Neutrophils # (Auto) 4.0 TH/MM3 Lymphocytes # (Auto) 0.9 TH/MM3 Monocytes # (Auto) 0.3 TH/MM3 Eosinophils # (Auto) 0.1 TH/MM3 Basophils # (Auto) 0.0 TH/MM3 CBC Comment AUTO DIFF Differential Comment AUTO DIFF CONFIRMED Platelet Estimate LOW Platelet Morphology Comment NORMAL Acanthocytes OCC Total Bilirubin 4.7 MG/DL Direct Bilirubin 2.6 MG/DL Indirect Bilirubin 2.1 MG/DL Aspartate Amino Transf 54 U/L (AST/SGOT) Alanine Aminotransferase 23 U/L (ALT/SGPT) Alkaline Phosphatase 62 U/L Ammonia 51 MCMOL/L Total Protein 6.4 GM/DL Albumin 3.2 GM/DL Test 10/09/16 05:05 Sodium Level 144 MEQ/L Potassium Level 3.3 MEQ/L Chloride Level 108 MEQ/L Carbon Dioxide Level 29.7 MEQ/L Anion Gap 6 MEQ/L Blood Urea Nitrogen 9 MG/DL Creatinine 0.79 MG/DL Estimat Glomerular Filtration 81 ML/MIN Rate Random Glucose 106 MG/DL Calcium Level 8.1 MG/DL Phosphorus Level 4.0 MG/DL Magnesium Level 2.4 MG/DL Objective Remarks GENERAL: No acute distress. SKIN: Warm and dry. HEAD: Normocephalic. EYES: No scleral icterus. No injection or drainage. NECK: Supple, trachea midline. No JVD or lymphadenopathy. CARDIOVASCULAR: Regular rate and rhythm without murmurs, gallops, or rubs. RESPIRATORY: Breath sounds equal bilaterally. No accessory muscle use. GASTROINTESTINAL: Abdomen soft, Distended. positive bowel sounds. MUSCULOSKELETAL: No cyanosis, or edema. BACK: Nontender without obvious deformity. No CVA tenderness. Medications and IVs Current Medications Medications (Trade) Dose Ordered Sig/Ric Route Start Time Stop Time Status Last Admin (NS Flush) 2 ml UNSCH PRN IV FLUSH 10/05/16 00:00 (NS Flush) 2 ml BID IV FLUSH 10/05/16 09:00 10/08/16 20:27 (Narcan Inj) 0.4 mg UNSCH PRN IV 10/05/16 00:00 (Roxicodone) 5 mg Q6H PRN PO 10/05/16 14:30 10/09/16 00:33 Hydromorphone HCl 0.2 mg 0.2 mg Q4H PRN IV PUSH 10/05/16 14:30 10/09/16 02:53 (Rocephin Inj/NS Inj) 100 ml @ 200 mls/hr Q12H IV 10/05/16 17:00 10/09/16 05:14 (Xifaxan) 550 mg BID PO 10/05/16 21:00 10/08/16 20:32 (Aldactone) 50 mg BID@,18 PO 10/05/16 18:00 10/08/16 17:35 (SoluMEDROL INJ) 40 mg DAILY IV 10/05/16 17:00 10/08/16 09:10 (Folate) 1 mg DAILY PO 10/06/16 09:00 10/11/16 08:59 10/08/16 09:09 (Theragran M Tab) 1 tab DAILY PO 10/06/16 09:00 10/11/16 08:59 10/08/16 09:09 (Vitamin B1) 100 mg DAILY PO 10/09/16 09:00 (Albumin 25% Inj) 25 gm BID@ IV 10/07/16 09:00 10/08/16 15:26 (Lasix Inj) 20 mg BID@,18 IV PUSH 10/06/16 18:00 10/08/16 17:36 (Protonix) 40 mg DAILY PO 10/06/16 10:45 10/08/16 09:09 (Lactulose Liq) 30 ml TID PO 10/07/16 13:00 10/08/16 17:36 (TRENtal SR) 400 mg Q8HR PO 10/07/16 14:00 10/09/16 05:14 A/P Assessment and Plan 41-year-old female with history of alcoholic liver cirrhosis, chronic anemia, thrombocytopenia, alcohol abuse, presents with a 3 day history of worsening shortness of breath, abdominal pain/distention, and chest pains. //Alcoholic Liver Cirrhosis with Ascites: Possible spontaneous bacterial peritonitis. -S/p U/S guided paracentesis 10/05 removed 4800cc of clear yellow fluid, however no fluid sent for studies -Continue on IV Rocephin, and performed diagnostic paracentesis with fluid reaccumulate -Continue Rifaximin 550mg bid, Spironolactone 50mg bid -Diuresis with IV Lasix with IV albumin -more epigastric./Shortness of Breath: suspect secondary to significant ascites on presentation. -as PER GI specialist okay to discharge Home. //Shortness of breath: Suspect secondary to abdominal distention from ascites. Reviewed: Chest x-ray with mild basilar atelectasis, no effusion or pneumothorax. -Continue diuresis as above, monitor I's and O'sad -Incentive spirometry, Oxygen as needed, Echocardiogram EF 60%. //Alcohol Abuse: patient reports her last drink was 09/18, denies any recent intake. Etoh level 3. -counseled cessation -thiamine/folate/MV //Macrocytic Anemia/Thrombocytopenia/coagulopathy w/ INR 1.9: Secondary to liver disease. No active bleeding. //Hyperammonemia: ammonia 65, patient currently AAOx4 however drowsy at times -will continue Lactulose once a day titrate to get at least three bowel movements daily. //Abnormal UA: Urine culture negative no need for antibiotics. DVT Prophylaxis: teds, avoid chemoprophylaxis with thrombocytopenia Discharge Planning Discharge Home today. Tuan Hatfield MD Oct 09, 2016 08:07 DVT Prophylaxis: teds, avoid chemoprophylaxis with thrombocytopenia Discharge Planning Once cleared by specialists. Tuan Hatfield MD Oct 09, 2016 08:07 DVT Prophylaxis: teds, avoid chemoprophylaxis with thrombocytopenia Discharge Planning Once cleared by specialists. Tuan Hatfield MD Oct 09, 2016 08:07
[2016-10-09] MEDS ORDERED: POTASSIUM CHLORIDE 20 MEQ CONTROLLED RELEASE TAB PO ONE ×2 (08:30→11:00)
[2016-10-09] MEDS ORDERED: THIAMINE HCL 100 MG TAB PO SCH (09:00)
--- NOTE | 2016-10-09 09:01 | PD.ONC.PN ---
Subjective Subjective Remarks Afebrile overnight. Feeling good today. Eager to go home. Slept well last night with oxygen on. Objective Data Date Time Temp Pulse Resp B/P Pulse Ox O2 Delivery O2 Flow Rate FiO2 10/09/16 08:00 97.9 94 17 114/58 95 10/09/16 00:00 99.4 102 19 108/59 92 10/08/16 21:08 18 10/08/16 20:00 97.4 92 20 128/60 97 10/08/16 16:00 97.4 96 20 110/58 97 10/08/16 12:00 97.2 98 20 115/67 97 10/09/16 10/09/16 10/09/16 06:59 14:59 22:59 Intake Total 240 ml Balance 240 ml Result Diagram: 10/08/16 1150 10/09/16 0505 Laboratory Results Laboratory Tests Test 10/08/16 10/09/16 11:50 05:05 White Blood Count 5.2 TH/MM3 Red Blood Count 2.46 MIL/MM3 Hemoglobin 9.0 GM/DL Hematocrit 26.5 % Mean Corpuscular Volume 107.5 FL Mean Corpuscular Hemoglobin 36.5 PG Mean Corpuscular Hemoglobin 33.9 % Concent Red Cell Distribution Width 19.5 % Platelet Count 83 TH/MM3 Mean Platelet Volume 7.2 FL Neutrophils (%) (Auto) 76.1 % Lymphocytes (%) (Auto) 17.3 % Monocytes (%) (Auto) 5.2 % Eosinophils (%) (Auto) 1.1 % Basophils (%) (Auto) 0.3 % Neutrophils # (Auto) 4.0 TH/MM3 Lymphocytes # (Auto) 0.9 TH/MM3 Monocytes # (Auto) 0.3 TH/MM3 Eosinophils # (Auto) 0.1 TH/MM3 Basophils # (Auto) 0.0 TH/MM3 CBC Comment AUTO DIFF Differential Comment AUTO DIFF CONFIRMED Platelet Estimate LOW Platelet Morphology Comment NORMAL Acanthocytes OCC Sodium Level 143 MEQ/L 144 MEQ/L Potassium Level 3.5 MEQ/L 3.3 MEQ/L Chloride Level 107 MEQ/L 108 MEQ/L Carbon Dioxide Level 28.3 MEQ/L 29.7 MEQ/L Anion Gap 8 MEQ/L 6 MEQ/L Blood Urea Nitrogen 8 MG/DL 9 MG/DL Creatinine 0.80 MG/DL 0.79 MG/DL Estimat Glomerular Filtration 80 ML/MIN 81 ML/MIN Rate Random Glucose 165 MG/DL 106 MG/DL Calcium Level 8.4 MG/DL 8.1 MG/DL Phosphorus Level 3.6 MG/DL 4.0 MG/DL Magnesium Level 2.2 MG/DL 2.4 MG/DL Total Bilirubin 4.7 MG/DL Direct Bilirubin 2.6 MG/DL Indirect Bilirubin 2.1 MG/DL Aspartate Amino Transf 54 U/L (AST/SGOT) Alanine Aminotransferase 23 U/L (ALT/SGPT) Alkaline Phosphatase 62 U/L Ammonia 51 MCMOL/L Total Protein 6.4 GM/DL Albumin 3.2 GM/DL Culture Results Microbiology Date/Time Procedure Status Source Growth 10/06/16 15:00 Gram Stain - Final Resulted Fluid Peritoneal Fluid 10/06/16 15:00 Body Fluid Culture - Preliminary Resulted Fluid Peritoneal Fluid NO GROWTH IN 48 HOURS. Administered Medications Medications (Trade) Dose Ordered Sig/Ric Route PRN Reason Start Time Stop Time Status Last Admin Dose Admin Sodium Chloride (NS Flush) 2 ml BID IV FLUSH 10/05/16 09:00 10/08/16 20:27 Oxycodone HCl (Roxicodone) 5 mg Q6H PRN PO pain scale 3-10 10/05/16 14:30 10/09/16 00:33 Hydromorphone HCl 0.2 mg 0.2 mg Q4H PRN IV PUSH breakthrough pain 10/05/16 14:30 10/09/16 02:53 Ceftriaxone Sodium/Sodium Chloride (Rocephin Inj/NS Inj) 100 ml @ 200 mls/hr Q12H IV 10/05/16 17:00 10/09/16 05:14 Rifaximin (Xifaxan) 550 mg BID PO 10/05/16 21:00 10/08/16 20:32 Spironolactone (Aldactone) 50 mg BID@18 PO 10/05/16 18:00 10/08/16 17:35 Methylprednisolone Sodium Succinate (SoluMEDROL INJ) 40 mg DAILY IV 10/05/16 17:00 10/08/16 09:10 Folic Acid (Folate) 1 mg DAILY PO 10/06/16 09:00 10/11/16 08:59 10/08/16 09:09 Multivitamins/ Minerals Therapeutic (Theragran M Tab) 1 tab DAILY PO 10/06/16 09:00 10/11/16 08:59 10/08/16 09:09 Albumin Human (Albumin 25% Inj) 25 gm BID@, IV 10/07/16 09:00 10/08/16 15:26 Furosemide (Lasix Inj) 20 mg BID@,18 IV PUSH 10/06/16 18:00 10/08/16 17:36 Pantoprazole Sodium (Protonix) 40 mg DAILY PO 10/06/16 10:45 10/08/16 09:09 Lactulose (Lactulose Liq) 30 ml TID PO 10/07/16 13:00 10/08/16 17:36 Pentoxifylline (TRENtal SR) 400 mg Q8HR PO 10/07/16 14:00 10/09/16 05:14 Objective Remarks GENERAL: chronically ill female supine in bed, undergoing echo. SKIN: Warm and dry. HEAD: Normocephalic. EYES: No injection or drainage. NECK: Supple, trachea midline. CARDIOVASCULAR: Regular rate and rhythm RESPIRATORY: Breath sounds equal bilaterally. No accessory muscle use. GASTROINTESTINAL: Abdomen soft, mildly distended. EXTREMITIES: No cyanosis NEUROLOGICAL: No obvious focal deficit. Awake, alert, and oriented x3. Assessment/Plan Problem List: (1) Ascites Status: Acute Plan: -- Patient had an elevated CA 125 at 932 -- There was concern for possible ovarian cancer -- The elevation is likely due to her liver disease and associated peritoneal effusions -- CT abdomen and pelvis from August 2016 showed no obvious mass in pelvis Assessment 41 y/o female with liver disease found to have an elevated CA-125 h/o Alcohol abuse Alcoholic liver disease, Chronic anemia and chronic thrombocytopenia, Splenomegaly, Ascites, Abdominal varices Liver cirrhosis, Portal hypertension, Diabetes type 2. Cholecystectomy. x3 Appendectomy. Plan 1. monitor CBC 2. supportive care 3. counseled to stop drinking. Attending Statement The exam, history, and the medical decision-making described in the above note were completed with the assistance of the mid-level provider. I reviewed and agree with the findings presented. I attest that I had a [id number] encounter with the patient on the same day, and personally performed and documented my assessment and findings in the medical record. Non-specific elevation of Ca-125 has advanced liver disease due to alcoholism/recurrent ascites continue supportive care. Yaima Francois Oct 09, 2016 09:01 Jordan Olivera MD Oct 09, 2016 23:11
[2016-10-09] MEDS: SPIRONOLACTONE 50 MG TAB PO SCH (10:18)
[2016-10-09] MEDS: LACTULOSE SYRUP 20 GM/30 ML CUP PO SCH (10:18)
[2016-10-09] MEDS: PANTOPRAZOLE SOD 40 MG DELAYED RELEASE TAB PO SCH (10:19)
[2016-10-09] MEDS: MULTIVITAMINS/MINERALS THERAPEUTIC TAB PO SCH (10:19)
[2016-10-09] MEDS: FOLIC ACID 1 MG TAB PO SCH (10:19)
[2016-10-09] MEDS: FUROSEMIDE 20 MG/2 ML VIAL IV PUSH SCH (10:20)
[2016-10-09] MEDS: methylPREDNISolone SOD SUCC 40 MG/1 ML VIAL IV SCH (10:20)
[2016-10-09] MEDS: ALBUMIN HUMAN 25% 25 GM/100 ML BAGP IV SCH (10:20)
[2016-10-09] MEDS: RIFAXIMIN 550 MG TAB PO SCH (10:20)
[2016-10-09] MEDS: SODIUM CHLORIDE 0.9% FLUSH 10 ML FLUSH IV FLUSH SCH (10:21)
[2016-10-09 12:00] VITALS: BP 108/55; PULSE 101; RESP 17; TEMP 98.5; O2SAT 96
[2016-10-09 12:44] VITALS: O2SAT 96
[2016-10-09] MEDS ORDERED: OXYC-392 PO (13:09)
[2016-10-09] MEDS ORDERED: THERM PO (13:09)
[2016-10-09] MEDS ORDERED: LACT10SO PO (13:09)
[2016-10-09] MEDS ORDERED: PANT40TA3 PO (13:09)
[2016-10-09] MEDS ORDERED: GNP100TA3 PO (13:09)
[2016-10-09] MEDS ORDERED: FURO1TAB60 PO (13:09)
[2016-10-09] MEDS ORDERED: PENT400T PO (13:09)
[2016-10-09] MEDS ORDERED: FOLI1TAB6 PO (13:09)
[2016-10-09] MEDS ORDERED: ALDA50TA2 PO (13:09)
[2016-10-09] MEDS ORDERED: XIFA550T4 PO (13:09)
--- NOTE | 2016-10-09 19:57 | ECHRPT ---
Indication: Shortness of breath CONCLUSIONS Normal left ventricular size and wall thickness. The left ventricular systolic function is normal with an estimated ejection fraction in the range of 60-65%. Left ventricular diastolic function parameters are normal. There is estimated mild pulmonary hypertension present ( 40 mmHg). Mild tricuspid regurgitation. BP: 103 / 58 HR: 90 Rhythm: Sinus MEASUREMENTS (Male / Female) Normal Values Technical Quality:Good 2D ECHO LV Diastolic Diameter PLAX 4.7 cm 4.2 - 5.9 / 3.9 - 5.3 cm LV Systolic Diameter PLAX 3.3 cm IVS Diastolic Thickness 1.0 cm 0.6 - 1.0 / 0.6 - 0.9 cm LVPW Diastolic Thickness 0.6 cm 0.6 - 1.0 / 0.6 - 0.9 cm LV Relative Wall Thickness 0.3 RV Internal Dim ED PLAX 1.9 cm LA Systolic Diameter LX 3.8 cm 3.0 - 4.0 / 2.7 - 3.8 cm M-MODE Aortic Root Diameter MM 3.3 cm AV Cusp Separation MM 2.1 cm DOPPLER Mitral E Point Velocity 143.0 cm/s Mitral A Point Velocity 174.0 cm/s Mitral E to A Ratio 0.8 TR Peak Velocity 296.0 cm/s TR Peak Gradient 35.0 mmHg FINDINGS LEFT VENTRICLE Normal left ventricular size and wall thickness. The left ventricular systolic function is normal wi th an estimated ejection fraction in the range of 60-65%. Left ventricular diastolic function parameters a re normal. RIGHT VENTRICLE Normal right ventricular size and systolic function. LEFT ATRIUM The left atrial size is normal. RIGHT ATRIUM The right atrial size is normal. ATRIAL SEPTUM Normal atrial septal thickness without atrial level shunting by limited color doppler interrogation. AORTA The aortic root and proximal ascending aorta are normal in size on limited imaging. MITRAL VALVE Structurally normal mitral valve. No mitral valve stenosis, trace mitral regurgitation. AORTIC VALVE Trileaflet aortic valve. No aortic valve stenosis or regurgitation. TRICUSPID VALVE There is estimated mild pulmonary hypertension present ( 40 mmHg). Mild TR. PULMONARY VALVE The pulmonary valve is not well visualized. VESSELS The inferior vena cava is normal in size. PERICARDIUM No pericardial effusion. Shaunna Olivares MD, FACC (Electronically Signed) Final Date:09 October 2016 19:57
--- NOTE | 2016-10-11 14:34 | HHI.DS ---
Discharge Summary Admission Date Oct 06, 2016 at 10:40 Discharge Date: Oct 09, 2016 Admitting Diagnosis fever, chest pain, headache, pancreatitis (1) Cirrhosis of liver ICD Code: K74.60 Diagnosis: Principal (2) Chest pain ICD Code: R07.9 Diagnosis: Principal (3) Shortness of breath ICD Code: R06.02 Diagnosis: Principal (4) History of alcohol abuse ICD Code: Z87.898 Diagnosis: Principal Procedures Paracentesis Brief History - From Admission Written by Arlene Hooks, acting as scribe for Dr. Sellers on 10/05/16 at 12:10. 41-year-old female with history of alcoholic liver cirrhosis, chronic anemia, thrombocytopenia, alcohol abuse, presents with a 3 day history of worsening shortness of breath, abdominal pain/distention, and chest pains. The patient reports she first started to notice shortness of breath, worse with exertion, unable to take a deep breath. She also noticed worsening abdominal distention and leg swelling since her last paracentesis done 09/18/16 removed 4900cc. She reports diffuse abdominal pain, unable to localize. Denies nausea/vomiting or diarrhea. She denies fevers but reports that she has chills "a lot". Over the past week she has had a cough productive of blood tinged sputum. She also reports last night around 10:30pm she began having chest pains located across the anterior chest with radiation down the arm, described as constant sharp pains, associated with shortness of breath. She reports compliance with her medications recently. She reports her last drink of alcohol was on 09/18. She denies any other medical complaints. CBC/BMP: 10/08/16 1150 10/09/16 0505 Significant Findings Laboratory Tests Test 10/09/16 05:05 Potassium Level 3.3 MEQ/L (3.5-5.1) Chloride Level 108 MEQ/L (98-107) Estimat Glomerular Filtration 81 ML/MIN (>89) Rate Calcium Level 8.1 MG/DL (8.5-10.1) Imaging Last Impressions Cyst Biopsy Asp-Paracentesis US 10/05/16 0000 Signed Impressions: Service Date/Time: September 08:03 - CONCLUSION: Uncomplicated ultrasound guided paracentesis. Tanner Arce MD Chest X-Ray 10/04/16 0000 Signed Impressions: Service Date/Time: Tuesday, October 04, 2016 22:15 - CONCLUSION: 1. Mild basal atelectasis. No effusion or pneumothorax. Cliff Montez MD PE at Discharge GENERAL: No acute distress. SKIN: Warm and dry. HEAD: Normocephalic. EYES: No scleral icterus. No injection or drainage. NECK: Supple, trachea midline. No JVD or lymphadenopathy. CARDIOVASCULAR: Regular rate and rhythm without murmurs, gallops, or rubs. RESPIRATORY: Breath sounds equal bilaterally. No accessory muscle use. GASTROINTESTINAL: Abdomen soft, Distended. positive bowel sounds. MUSCULOSKELETAL: No cyanosis, or edema. BACK: Nontender without obvious deformity. No CVA tenderness. Hospital Course This is a pleasant 41 y/o Female with Alcoholic Liver Cirrhosis, Chronic anemia , thrombocytopenia, alcohol abuse, who came to ER with Shortness of breath, Abdominal distention and leg swelling, status post paracentesis, 09/18/16 removed 4900 ml of fluid, Consulted medical program specialist due to Family history of Ovarian Cancer and Elevated CA-125 , patient status post multiple Therapeutic paracentesis as per medical program specialist CA-125 is often elevated in patients with peritoneal disease and ascites, no concerning imaging for Ovarian Cancer, recommended to follow with medical program specialist as outpatient Doctor Jarod. 10/09: Stable in her bedroom, followed by GI specialist Doctor Ck banks input, with Diagnosis of Alcoholic Hepatitis Status ost U?S guided paracentesis 10/05, removed 4800 ml or clear yellow fluid , probable to repeat therapeutic paracentesis, continue Ancef, lactulose, Pentoxifylline, diuretics and rifaximin. Assessment and Plan 41-year-old female with history of alcoholic liver cirrhosis, chronic anemia, thrombocytopenia, alcohol abuse, presents with a 3 day history of worsening shortness of breath, abdominal pain/distention, and chest pains. //Alcoholic Liver Cirrhosis with Ascites: Possible spontaneous bacterial peritonitis. -S/p U/S guided paracentesis 10/05 removed 4800cc of clear yellow fluid, however no fluid sent for studies -Continue on IV Rocephin, and performed diagnostic paracentesis with fluid reaccumulate -Continue Rifaximin 550mg bid, Spironolactone 50mg bid -Diuresis with IV Lasix with IV albumin -more epigastric./Shortness of Breath: suspect secondary to significant ascites on presentation. -as PER GI specialist okay to discharge Home. //Shortness of breath: Suspect secondary to abdominal distention from ascites. Reviewed: Chest x-ray with mild basilar atelectasis, no effusion or pneumothorax. -Continue diuresis as above, monitor I's and O'sad -Incentive spirometry, Oxygen as needed, Echocardiogram EF 60%. //Alcohol Abuse: patient reports her last drink was 09/18, denies any recent intake. Etoh level 3. -counseled cessation -thiamine/folate/MV //Macrocytic Anemia/Thrombocytopenia/coagulopathy w/ INR 1.9: Secondary to liver disease. No active bleeding. //Hyperammonemia: ammonia 65, patient currently AAOx4 however drowsy at times -will continue Lactulose once a day titrate to get at least three bowel movements daily. //Abnormal UA: Urine culture negative no need for antibiotics. DVT Prophylaxis: teds, avoid chemoprophylaxis with thrombocytopenia Discharge Planning Discharge Home today. Pt Condition on Discharge: Stable Discharge Disposition: Discharge Home Discharge Time: > 30 minutes Discharge Instructions DIET: Follow Instructions for: Heart Healthy Diet Activities you can perform: Regular-No Restrictions Tuan Hatfield MD Oct 11, 2016 14:34
== END 2016-10-09 13:58 | disposition home or self-care (01) | DRG 432 ==
LOC: NEPE 21:49 → NEDA 23:30 → NEDH 10-05 06:40 → NEPHCDU 10-05 13:32 → OBSVTOIN 10-06 10:40 → HOCB 10-06 21:04 → N07A 10-08 08:36
PROVIDERS: ADMIT Internal Medicine; ATTEND Internal Medicine
PROC: 0W9G3ZZ Drainage of Peritoneal Cavity, Percutaneous Approach (ICD-10-PCS; principal; 2016-10-05)
DX: K70.31 Alcoholic cirrhosis of liver with ascites (principal); G93.40 Encephalopathy, unspecified; K70.11 Alcoholic hepatitis with ascites; K76.6 Portal hypertension; D68.4 Acquired coagulation factor deficiency; E72.20 Disorder of urea cycle metabolism, unspecified; D69.59 Other secondary thrombocytopenia; R07.9 Chest pain, unspecified; Z87.11 Personal history of peptic ulcer disease; Z80.41 Family history of malignant neoplasm of ovary; E11.9 Type 2 diabetes mellitus without complications; D53.9 Nutritional anemia, unspecified
CPT/HCPCS: 49083; 71010; 80048; 80053; 80069; 80076; 80307; 81001; 82042; 82140; 82150; 82550; 82607; 82746; 82945; 83615; 83690; 83735; 84100; 84155; 84157; 84484; 85025; 85610; 85730; 86304; 87070; 87086; 87205; 89051; 93005; 93306; 94150; 94664; 96365; 96375; C1729; G0378; J0696; J1170; J1940; J2920; J3411; J7613; P9047

== ENCOUNTER 2016-10-13 20:05 | Emergency (ER) | payer OTHER ==
[~2016-10-13] VITALS: Ht 160 cm; Wt 66.0 kg
[~2016-10-13 20:05] MED LIST changes: +ALDA50TA2 PO; -CHLO5CAP4 PO; +GNP100TA3 PO; +LACT10SO PO; -MULTTAB25 PO; +OXYC-392 PO; -OXYC1CAP PO; -PHYT5TAB2 PO; -RANI150T PO; -SPIR100T PO; +THERM PO; -VITA250T25 PO; +XIFA550T4 PO
[2016-10-13 20:08] VITALS: BP 133/74; PULSE 116; RESP 20; TEMP 99.3; O2SAT 100
--- NOTE | 2016-10-13 20:51 | PD ---
Physical Exam Time Seen by Provider: 20:49 Narrative 41 y/o female here for evaluation after a fall. Bruising L arm, R leg, R orbit. Poor historian. Hx cirrhosis, thrombocytopenia. Vital signs reviewed. Seen at triage desk. Awaiting bed placement. Data Data Last Documented VS Vital Signs Date Time Temp Pulse Resp B/P Pulse Ox O2 Delivery O2 Flow Rate FiO2 10/13/16 20:08 99.3 116 20 133/[address] Brain W/O Iv Contrast(Rout) (10/13/16 ) Ct Facial Bones W/O Iv Cont (10/13/16 ) Complete Blood Count With Diff (10/13/16 21:43) Comprehensive Metabolic Panel (10/13/16 21:43) Prothrombin Time / Inr (Pt) (10/13/16 21:43) Act Partial Throm Time (Ptt) (10/13/16 21:43) Ice / Cold Pack PRN (10/13/16 21:43) MDM Medical Record Reviewed: Yes Supervised Visit with EDA: Jude Haley Oct 13, 2016 20:51
--- NOTE | 2016-10-13 21:20 | RADRPT ---
EXAM DATE/TIME: 10/13/2016 21:06 [facility] COMPARISON: CT BRAIN W/O CONTRAST, September 18, 2016, 11:07. INDICATIONS : Trauma; multiple falls RADIATION DOSE: 34.65 CTDIvol (mGy) MEDICAL HISTORY : Cardiovascular disease. Diabetes mellitus type 2. Liver disease, ETOH abuse SURGICAL HISTORY : Cholecystectomy. ENCOUNTER: Initial ACUITY: 1 day PAIN SCALE: 5/10 LOCATION: cranial TECHNIQUE: Multiple contiguous axial images were obtained of the head. Using automated exposure control and adj ustment of the mA and/or kV according to patient size, radiation dose was kept as low as reasonably a chievable to obtain optimal diagnostic quality images. DICOM format image data is available electro nically for review and comparison. FINDINGS: CEREBRUM: The ventricles are normal for age. No evidence of midline shift, mass lesion, hemorrhage or acute in farction. No extra-axial fluid collections are seen. POSTERIOR FOSSA: The cerebellum and brainstem are intact. The 4th ventricle is midline. The cerebellopontine angle i s unremarkable. EXTRACRANIAL: The visualized portion of the orbits is intact. SKULL: The calvaria is intact. No evidence of skull fracture. CONCLUSION: Negative noncontrast head CT. Michoacano Kuhn MD on October 13, 2016 at 21:18 Board Certified Radiologist. This report was verified electronically.
--- NOTE | 2016-10-13 21:36 | RADRPT ---
EXAM DATE/TIME: 10/13/2016 21:06 [facility] COMPARISON: No previous studies available for comparison. INDICATIONS : Trauma; multiple falls. ETOH abuse. RADIATION DOSE: 53.29 CTDIvol (mGy) MEDICAL HISTORY : Cardiovascular disease. Diabetes mellitus type 2. Liver failure; ETOH abuse SURGICAL HISTORY : Cholecystectomy. ENCOUNTER: Initial ACUITY: 1 day PAIN SCORE: 5/10 LOCATION: facial TECHNIQUE: Volumetric scanning of the facial bones was performed. Using automated exposure control and adjustme nt of the mA and/or kV according to patient size, radiation dose was kept as low as reasonably achiev able to obtain optimal diagnostic quality images. DICOM format image data is available electronicall y for review and comparison. FINDINGS: ORBITS: The orbital and infraorbital osseous structures are intact. The retroconal structures have a normal configuration. No radiopaque foreign bodies are seen. NASAL BONE: The nasal bone and maxillary spine are intact ZYGOMATIC ARCHES: Symmetric without evidence of fracture. SINUSES: I believe a previous nasoantral window on the left. There is mucoperiosteal thickening of the left ma xillary air cell. NASAL CAVITY: The nasal septum is intact and midline. The lacrimal ducts are intact. SOFT TISSUES: Pre-septal indira-orbital soft tissue swelling seen on the right. Post septal soft tissues are normal. INTRACRANIAL: No intracranial air seen. CRIBIFORM PLATE: Grossly intact. Numerous caries and broken teeth noted. CONCLUSION: 1. No facial fracture. 2. Right preseptal soft tissue swelling. Normal post septal soft tissues. 3. Chronic sinus disease. 4. Extensive dental disease. Michoacano Kuhn MD on October 13, 2016 at 21:33 Board Certified Radiologist. This report was verified electronically.
--- NOTE | 2016-10-13 21:47 | PD ---
HPI Chief Complaint: Fall Time Seen by Provider: 21:30 Travel History International Travel<30 days: No Contact w/Intl Traveler<30days: No Traveled to known affect area: No History of Present Illness HPI 41-year-old female history of alcoholic cirrhosis, alcohol use, last drank yesterday, thrombocytopenia, presents for evaluation after fall. She reports a prior to arrival she fell and hit her face against a tree. She now has some right periorbital bruising which is somewhat painful. She also has some bruising to the right hip and right lower leg. In addition she has some bruising on her left forearm which has persisted from an IV insertion 2 weeks ago. She denies generalized headache, blurred vision, nausea or vomiting, abdominal pain, chest pain or shortness of breath. She reports that she last drank alcohol yesterday but she does not feel like she is withdrawing. She has no other complaints at this time. 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) COPD: No Diabetes: Yes (no meds at this time) Patient Takes Glucophage: No Diminished Hearing: No Endocrine: No Genitourinary: No Immune Disorder: No Musculoskeletal: No Neurologic: No Psychiatric: Yes Reproductive: No Respiratory: No Radiation Therapy: No Sleep Apnea: No Thyroid Disease: No ?: Not LMP: irreg : 3 Para: 3 Miscarriage: 0 : 0 Past Surgical History Abdominal Surgery: Yes (ex lap ) Cardiac Surgery: No Section: Yes (x 3) Cholecystectomy: Yes Genitourinary Surgery: Yes Pacemaker: No Thoracic Surgery: No Other Surgery: Yes (gallbladder removal and appendix , 3 c sections ) Social History Alcohol Use: Yes (2 4-LOCO PER DAY/ states non for the past 10 days) Tobacco Use: No Substance Use: No Allergies-Medications (Allergen,Severity, Reaction): Coded Allergies: morphine (Unverified Adverse Reaction, Mild, Nausea/Vomiting, 10/13/16) Reported Meds & Prescriptions Reported Meds & Active Scripts Active Lactulose Liq (Lactulose) 10 Gm/15 Ml Soln 30 Ml PO DAILY take one dose daily of 30 ml and titrate to get at least two to three bowel movements daily Thera M Plus (Multivitamins/Minerals Therapeutic) 1 Tab 1 Tab PO DAILY Oxycodone (Oxycodone HCl) 5 Mg Tab 5 Mg PO Q6H PRN do not use this medicine if you will drive a car or use a machine, only use it when resting at home. Pantoprazole (Pantoprazole Sodium) 40 Mg Tab 40 Mg PO DAILY Gnp Vitamin B-1 (Thiamine HCl) 100 Mg Tab 100 Mg PO DAILY Lasix (Furosemide) 40 Mg Tab 40 Mg PO DAILY Folic Acid 1 Mg Tablet 1 Mg PO DAILY Review of Systems Except as stated in HPI: all other systems reviewed are Neg Physical Exam Narrative GENERAL: Well-developed well-nourished female in no acute distress SKIN: Warm and dry. Some right periorbital ecchymosis is noted. Some ecchymosis noted to the right anterior iliac spine region. Some ecchymosis noted to the left forearm. HEAD: Atraumatic. Normocephalic. EYES: Pupils equal and round reactive to light, extraocular muscles are intact, positive scleral icterus. No injection or drainage. ENT: No nasal bleeding or discharge. Mucous membranes pink and moist. NECK: Trachea midline. No JVD. CARDIOVASCULAR: Regular rate and rhythm. No murmur appreciated. RESPIRATORY: No accessory muscle use. Clear to auscultation. Breath sounds equal bilaterally. GASTROINTESTINAL: Abdomen soft, non-tender, nondistended. Hepatic and splenic margins not palpable. MUSCULOSKELETAL: No obvious deformities. Full range of motion of the upper and lower extremities, no tenderness to palpation along the neck or back. NEUROLOGICAL: Awake and alert. No obvious cranial nerve deficits. Motor grossly within normal limits. Normal speech. PSYCHIATRIC: Appropriate mood and affect; insight and judgment normal. Data Data Last Documented VS Vital Signs Date Time Temp Pulse Resp B/P Pulse Ox O2 Delivery O2 Flow Rate FiO2 10/13/16 22:20 14 97 Room Air 10/13/16 22:19 98.3 91 118/[address] Brain W/O Iv Contrast(Rout) (10/13/16 ) Ct Facial Bones W/O Iv Cont (10/13/16 ) Complete Blood Count With Diff (10/13/16 21:43) Comprehensive Metabolic Panel (10/13/16 21:43) Prothrombin Time / Inr (Pt) (10/13/16 21:43) Act Partial Throm Time (Ptt) (10/13/16 21:43) Ice / Cold Pack PRN (10/13/16 21:43) Tramadol (Ultram) (10/13/16 22:30) Labs Laboratory Tests Test 10/13/16 22:00 White Blood Count 6.4 TH/MM3 Red Blood Count 2.72 MIL/MM3 Hemoglobin 10.2 GM/DL Hematocrit 29.3 % Mean Corpuscular Volume 107.8 FL Mean Corpuscular Hemoglobin 37.5 PG Mean Corpuscular Hemoglobin 34.7 % Concent Red Cell Distribution Width 19.2 % Platelet Count 74 TH/MM3 Mean Platelet Volume 7.5 FL Neutrophils (%) (Auto) 66.7 % Lymphocytes (%) (Auto) 25.6 % Monocytes (%) (Auto) 6.4 % Eosinophils (%) (Auto) 1.1 % Basophils (%) (Auto) 0.2 % Neutrophils # (Auto) 4.3 TH/MM3 Lymphocytes # (Auto) 1.6 TH/MM3 Monocytes # (Auto) 0.4 TH/MM3 Eosinophils # (Auto) 0.1 TH/MM3 Basophils # (Auto) 0.0 TH/MM3 CBC Comment AUTO DIFF Differential Comment AUTO DIFF CONFIRMED Prothrombin Time 20.7 SEC Prothromb Time International 1.8 RATIO Ratio Activated Partial 30.3 SEC Thromboplast Time Sodium Level 143 MEQ/L Potassium Level 4.2 MEQ/L Chloride Level 112 MEQ/L Carbon Dioxide Level 24.9 MEQ/L Anion Gap 6 MEQ/L Blood Urea Nitrogen 7 MG/DL Creatinine 1.36 MG/DL Estimat Glomerular Filtration 43 ML/MIN Rate Random Glucose 114 MG/DL Calcium Level 8.6 MG/DL Total Bilirubin 9.2 MG/DL Aspartate Amino Transf 108 U/L (AST/SGOT) Alanine Aminotransferase 48 U/L (ALT/SGPT) Alkaline Phosphatase 70 U/L Total Protein 6.8 GM/DL Albumin 3.6 GM/DL [facility] Medical Decision Making Medical Screen Exam Complete: Yes Emergency Medical Condition: Yes Medical Record Reviewed: Yes Differential Diagnosis Contusion, fracture, intracranial hemorrhage, sprain, strain Narrative Course 41-year-old female here after a fall with right-sided facial bruising. She also has a bruise to the right hip, right lower leg and some ecchymosis that has persisted on her left forearm from an IV insertion 2 weeks ago. Likely this is secondary to her thrombocytopenia. CT imaging of the brain and facial bones were performed and they were normal. On initial examination in triage she was tachycardic. Upon reexamination her heart rate is 100. She is an alcoholic but does not feel any withdrawal symptoms. CBC, CMP, PT and PTT have been ordered. An ice pack will be provided. Patient's lab work is consistent with her baseline. She is stable for discharge. Diagnosis Primary Impression: Multiple contusions Additional Instructions: Ice pack to the affected area several times a day 10-15 minutes at a time. Return for any emergent medical conditions. Med/Other Pt SpecificInfo: No Change to Meds Disposition: 01 DISCHARGE HOME Condition: Stable Jude Feliz Oct 13, 2016 21:47
[2016-10-13 22:16] LABS: AUTOMATED NEUTROPHIL # 4.3 TH/MM3 (1.8-7.7); BASOPHIL % 0.2 % (0.0-2.0); EOSINOPHIL # 0.1 TH/MM3 (0-0.4); EOSINOPHIL % 1.1 % (0.0-4.0); HEMATOCRIT 29.3 % (35.0-46.0); LYMPH % 25.6 % (9.0-44.0); LYMPHOCYTE # 1.6 TH/MM3 (1.0-4.8); MEAN CELL VOLUME 107.8 FL (80.0-100.0); MEAN CORPUSCULAR HEMOGLOBIN 37.5 PG (27.0-34.0); MEAN CORPUSCULAR HGB CONC 34.7 % (32.0-36.0); MONO % 6.4 % (0.0-8.0); NEUT % 66.7 % (16.0-70.0); PLATELET COUNT 74 TH/MM3 (150-450); RED BLOOD COUNT 2.72 MIL/MM3 (4.00-5.30); RED CELL DISTRIBUTION WIDTH 19.2 % (11.6-17.2); WHITE BLOOD COUNT 6.4 TH/MM3 (4.0-11.0)
[2016-10-13 22:17] LABS: HEMO FLAGS AUTO DIFF
[2016-10-13 22:19] VITALS: BP 118/61; PULSE 91; RESP 14; TEMP 98.3; O2SAT 97
[2016-10-13 22:27] LABS: ALT (GPT) 48 U/L (10-53)
[2016-10-13 22:28] LABS: ANION GAP 6 MEQ/L (5-15); AST (GOT) 108 U/L (15-37); BICARBONATE 24.9 MEQ/L (21.0-32.0); BLOOD UREA NITROGEN 7 MG/DL (7-18); CHLORIDE 112 MEQ/L (98-107); GLOMERULAR FILTRATION RATE 43 ML/MIN (>89); POTASSIUM 4.2 MEQ/L (3.5-5.1); SODIUM (NA) 143 MEQ/L (136-145)
[2016-10-13 22:29] LABS: ALKALINE PHOSPHATASE 70 U/L (45-117); TOTAL BILIRUBIN ADULT 9.2 MG/DL (0.2-1.0)
[2016-10-13] MEDS ORDERED: traMADol HCL 50 MG TAB PO ONE (22:30)
[2016-10-13 22:35] LABS: APTT (PATIENT) 30.3 SEC (24.3-30.1); INTERNATIONAL NORMALIZED RATIO 1.8 RATIO; PROTHROMBIN TIME - PATIENT 20.7 SEC (9.8-11.6)
[2016-10-13 22:42] LABS: SCAN/DIFF AUTO DIFF CONFIRMED
[2016-11-24] MEDS ORDERED: B-1250TA PO (20:48)
[2016-11-24] MEDS ORDERED: FURO20TA PO (22:21)
[2016-11-26] MEDS ORDERED: MAPA500C PO (18:46)
[2016-11-26] MEDS ORDERED: DIPH25TA2 PO (18:46)
== END 2016-10-13 23:16 | disposition home or self-care (01) ==
LOC: NEPD 20:05
DX: S00.83XA Contusion of other part of head, initial encounter (principal); S70.01XA Contusion of right hip, initial encounter; S80.11XA Contusion of right lower leg, initial encounter; S40.022A Contusion of left upper arm, initial encounter; W19.XXXA Unspecified fall, initial encounter; D69.3 Immune thrombocytopenic purpura; K70.30 Alcoholic cirrhosis of liver without ascites; F10.10 Alcohol abuse, uncomplicated
CPT/HCPCS: 70450; 70486; 80053; 85025; 85610; 85730; 99285

== ENCOUNTER 2016-11-14 17:35 | Emergency (ER) | payer OTHER ==
[~2016-11-14] VITALS: Ht 160 cm; Wt 68.0 kg
[~2016-11-14 17:35] MED LIST changes: -ALDA50TA2 PO; -PENT400T PO; -XIFA550T4 PO
[2016-11-14 17:37] VITALS: BP 134/74; PULSE 112; RESP 22; TEMP 99.2; O2SAT 95
[2016-11-14 17:45] VITALS: BP 143/85; PULSE 112; RESP 16; TEMP 98.2; O2SAT 98
[2016-11-14] MEDS ORDERED: FURO20TA PO (17:57)
[2016-11-14] MEDS ORDERED: FURO80TA PO (17:57)
[2016-11-14] MEDS ORDERED: SPIR50TA PO (17:57)
[2016-11-14] MEDS ORDERED: PENT400T PO (17:57)
--- NOTE | 2016-11-14 17:59 | PD ---
HPI Chief Complaint: Abdominal Pain Time Seen by Provider: 17:55 Travel History International Travel<30 days: No Contact w/Intl Traveler<30days: No Traveled to known affect area: No History of Present Illness HPI This is a 41-year-old female history of alcoholic cirrhosis who presents for evaluation of worsening abdominal distention, bilateral lower extremity edema. She reports that for the past week she has had gradual swelling of her abdomen and legs. She reports generalized pressure type pain in her abdomen which is constant, aggravated by abdominal distention. She's had this problem in the past required paracentesis. She reports that 2 weeks ago she ran out of her Lasix- she was prescribed 80 mg bid as well as an additional dose of 20 mg daily. She reports that her primary care physician has written her a refill and her is picking up today at the pharmacy however she has not yet taken a dose. She was referred here by her primary care for paracentesis and further evaluation. She denies any chest pain but she endorses some dyspnea secondary to the abdominal distention. She denies any fevers, chills, dysuria, flank pain. 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 No other complaints. 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) COPD: No Diabetes: Yes (no meds at this time) Patient Takes Glucophage: No Diminished Hearing: No Endocrine: No Genitourinary: No Immune Disorder: No Musculoskeletal: No Neurologic: No Psychiatric: Yes Reproductive: No Respiratory: No Radiation Therapy: No Sleep Apnea: No Thyroid Disease: No ?: Not : 3 Para: 3 Miscarriage: 0 : 0 Past Surgical History Abdominal Surgery: Yes (ex lap ) Cardiac Surgery: No Section: Yes (x 3) Cholecystectomy: Yes Genitourinary Surgery: Yes Pacemaker: No Thoracic Surgery: No Other Surgery: Yes (gallbladder removal and appendix , 3 c sections ) Social History Alcohol Use: No (patient states she quit drinking) Tobacco Use: No Substance Use: No Allergies-Medications (Allergen,Severity, Reaction): Coded Allergies: morphine (Unverified Adverse Reaction, Mild, Nausea/Vomiting, 9/19/17) Reported Meds & Prescriptions Reported Meds & Active Scripts Active Lactulose Liq (Lactulose) 10 Gm/15 Ml Soln 30 Ml PO DAILY take one dose daily of 30 ml and titrate to get at least two to three bowel movements daily Thera M Plus (Multivitamins/Minerals Therapeutic) 1 Tab 1 Tab PO DAILY Oxycodone (Oxycodone HCl) 5 Mg Tab 5 Mg PO Q6H PRN do not use this medicine if you will drive a car or use a machine, only use it when resting at home. Pantoprazole (Pantoprazole Sodium) 40 Mg Tab 40 Mg PO DAILY Gnp Vitamin B-1 (Thiamine HCl) 100 Mg Tab 100 Mg PO DAILY Reported Spironolactone 50 Mg Tab 50 Mg PO DAILY Pentoxifylline ER (Pentoxifylline) 400 Mg Tab 400 Mg PO DAILY Furosemide 20 Mg Tab 20 Mg PO DAILY Furosemide 80 Mg Tab 80 Mg PO BID Review of Systems Except as stated in HPI: all other systems reviewed are Neg Physical Exam Narrative GENERAL: Well-developed well-nourished female who appears uncomfortable. SKIN: Warm and dry. HEAD: Atraumatic. Normocephalic. EYES: Pupils equal and round. Scleral icterus is present. No injection or drainage. ENT: No nasal bleeding or discharge. Mucous membranes pink and moist. NECK: Trachea midline. No JVD. CARDIOVASCULAR: Regular rate and rhythm. No murmur appreciated. RESPIRATORY: No accessory muscle use. Clear to auscultation. Breath sounds equal bilaterally. GASTROINTESTINAL: Abdomen soft, generalized abdominal distention with fluid waves, mild tenderness without guarding. MUSCULOSKELETAL: No obvious deformities. 2+ lower extremity edema. NEUROLOGICAL: Awake and alert. No obvious cranial nerve deficits. Motor grossly within normal limits. Normal speech. PSYCHIATRIC: Appropriate mood and affect; insight and judgment normal. Data Data Last Documented VS Vital Signs Date Time Temp Pulse Resp B/P (MAP) Pulse Ox O2 Delivery O2 Flow Rate FiO2 11/14/16 18:07 97 Room Air 11/14/16 17:45 98.2 112 16 Orders Orders Complete Blood Count With Diff (11/14/16 17:52) Comprehensive Metabolic Panel (11/14/16 17:52) Lipase (11/14/16 17:52) Prothrombin Time / Inr (Pt) (11/14/16 17:52) Act Partial Throm Time (Ptt) (11/14/16 17:52) Urinalysis - C+S If Indicated (11/14/16 17:52) Iv Access Insert/Monitor (11/14/16 17:52) Ecg Monitoring (11/14/16 17:52) Oximetry (11/14/16 17:52) Sodium Chloride 0.9% Flush (Ns Flush) (11/14/16 18:00) Electrocardiogram (11/14/16 17:52) Ed Urine Pregnancytest Poc (11/14/16 17:52) Hydromorphone Pf Inj (Dilaudid Pf Inj) (11/14/16 18:00) Ondansetron Inj (Zofran Inj) (11/14/16 18:00) Chest, Single Ap (11/14/16 ) Furosemide Inj (Lasix Inj) (11/14/16 18:00) Ammonia (11/14/16 17:54) Calcium Chloride Inj (Calcium Chloride I (11/14/16 19:15) Potassium Chloride (Kcl) (11/14/16 19:15) Labs Laboratory Tests Test 11/14/16 13:20 11/14/16 18:00 11/14/16 18:50 Ammonia 61 MCMOL/L White Blood Count 9.8 TH/MM3 Red Blood Count 2.69 MIL/MM3 Hemoglobin 10.2 GM/DL Hematocrit 29.6 % Mean Corpuscular Volume 110.0 FL Mean Corpuscular Hemoglobin 37.9 PG Mean Corpuscular Hemoglobin Concent 34.5 % Red Cell Distribution Width 14.8 % Platelet Count 79 TH/MM3 Mean Platelet Volume 7.7 FL Neutrophils (%) (Auto) 70.7 % Lymphocytes (%) (Auto) 21.9 % Monocytes (%) (Auto) 5.6 % Eosinophils (%) (Auto) 1.4 % Basophils (%) (Auto) 0.4 % Neutrophils # (Auto) 6.9 TH/MM3 Lymphocytes # (Auto) 2.1 TH/MM3 Monocytes # (Auto) 0.5 TH/MM3 Eosinophils # (Auto) 0.1 TH/MM3 Basophils # (Auto) 0.0 TH/MM3 CBC Comment AUTO DIFF Prothrombin Time 19.9 SEC Prothromb Time International Ratio 1.8 RATIO Activated Partial Thromboplast Time 30.8 SEC Blood Urea Nitrogen 4 MG/DL Creatinine 0.65 MG/DL Random Glucose 116 MG/DL Total Protein 6.1 GM/DL Albumin 2.8 GM/DL Calcium Level 7.4 MG/DL Alkaline Phosphatase 159 U/L Aspartate Amino Transf (AST/SGOT) 79 U/L Alanine Aminotransferase (ALT/SGPT) 23 U/L Total Bilirubin 8.2 MG/DL Sodium Level 141 MEQ/L Potassium Level 3.3 MEQ/L Chloride Level 110 MEQ/L Carbon Dioxide Level 22.5 MEQ/L Anion Gap 9 MEQ/L Estimat Glomerular Filtration Rate 101 ML/MIN Protein Corrected Calcium 7.9 MG/DL Lipase 200 U/L Urine Color YELLOW Urine Turbidity CLEAR Urine pH 6.0 Urine Specific Harman 1.007 Urine Protein NEG mg/dL Urine Glucose (UA) NEG mg/dL Urine Ketones NEG mg/dL Urine Occult Blood NEG Urine Nitrite NEG Urine Bilirubin NEG Urine Urobilinogen 2.0 MG/DL Urine Leukocyte Esterase NEG Urine RBC LESS THAN 1 /hpf Urine WBC 1 /hpf Urine Squamous Epithelial Cells 1 /hpf Urine Mucus FEW /lpf Microscopic Urinalysis Comment CULT NOT INDICATED MDM Medical Decision Making Medical Screen Exam Complete: Yes Emergency Medical Condition: Yes Medical Record Reviewed: Yes Interpretation(s) EKG sinus tachycardia rate 111 Differential Diagnosis Abdominal ascites, SBP, CHF, cirrhosis Narrative Course This is a 41-year-old female with history of alcohol cirrhosis she ran out of her Lasix 2 weeks ago and since then has developed gradually worsening abdominal distention, bilateral lower extremity edema, pain, shortness of breath secondary to the abdominal distention. Examination reveals abdominal ascites, mild tenderness to palpation without peritoneal signs, she appears mildly dyspneic, she has lower extremity edema bilaterally, scleral icterus. Her presentation is consistent with cirrhosis with ascites. Plan is for basic lab work, chest x-ray. She will be given IV Lasix, Dilaudid, Zofran. The patient's blood work is notable for a potassium of 3.3, the patient be given 40 mEq orally potassium chloride. Her protein corrected calcium is 7.9, she is being given 1 g of IV calcium prior to discharge. Her total bilirubin is 8.2, her AST is 79 her ammonia is 61, her INR is 1.8, platelet count is 79 which is all consistent with her baseline. At this point in time the plan would be to provide the patient with a slip to schedule a therapeutic paracentesis with interventional radiology. She understands the importance of taking potassium supplementation while prescribed Lasix and the importance of following up to have her potassium checked on a regular basis. She is stable for discharge. Procedures EKG Prior to Arrival: Yes Diagnosis Primary Impression: Cirrhosis of liver Qualified Codes: K70.31 - Alcoholic cirrhosis of liver with ascites Additional Instructions: As discussed, call centralized scheduling tomorrow to schedule an outpatient therapeutic paracentesis. Take potassium supplementation while on Lasix. Follow-up closely with primary care physician. Return for any emergent medical conditions. Med/Other Pt SpecificInfo: No Change to Meds Disposition: 01 DISCHARGE HOME Condition: Stable Jude Feliz Nov 14, 2016 17:59
[2016-11-14] MEDS ORDERED: SODIUM CHLORIDE 0.9% FLUSH 10 ML FLUSH IV FLUSH PRN (18:00)
[2016-11-14] MEDS ORDERED: ONDANSETRON HCL 4 MG/2 ML VIAL IV PUSH ONE (18:00)
[2016-11-14] MEDS ORDERED: HYDROmorphone HCL PF 1 MG/ML VIAL IV PUSH ONE (18:00)
[2016-11-14] MEDS ORDERED: FUROSEMIDE 40 MG/4 ML VIAL IV PUSH ONE (18:00)
[2016-11-14 18:07] VITALS: O2SAT 97
--- NOTE | 2016-11-14 18:07 | RADRPT ---
EXAM DATE/TIME: 11/14/2016 17:50 [facility] COMPARISON: CHEST SINGLE AP, October 04, 2016, 22:15. INDICATIONS : Shortness of breath. MEDICAL HISTORY : Cardiovascular disease. Diabetes mellitus type 2. Liver failure; ETOH abuse SURGICAL HISTORY : Cholecystectomy. Tubal ligation. ENCOUNTER: Initial ACUITY: 1 day PAIN SCORE: 7/10 LOCATION: Bilateral chest FINDINGS: There is subsegmental airspace disease at the lung bases. Mild cardiomegaly. No pneumothorax. Probabl e trace pleural fluid. CONCLUSION: 1. Subsegmental basilar air space disease most characteristic of atelectasis. Probable trace pleural fluid especially on the right. Mild cardiomegaly. Cliff Montez MD on November 14, 2016 at 18:05 Board Certified Radiologist. This report was verified electronically.
[2016-11-14 18:32] LABS: AUTOMATED NEUTROPHIL # 6.9 TH/MM3 (1.8-7.7); BASOPHIL % 0.4 % (0.0-2.0); EOSINOPHIL # 0.1 TH/MM3 (0-0.4); EOSINOPHIL % 1.4 % (0.0-4.0); HEMATOCRIT 29.6 % (35.0-46.0); LYMPH % 21.9 % (9.0-44.0); LYMPHOCYTE # 2.1 TH/MM3 (1.0-4.8); MEAN CORPUSCULAR HEMOGLOBIN 37.9 PG (27.0-34.0); MEAN CORPUSCULAR HGB CONC 34.5 % (32.0-36.0); MONO % 5.6 % (0.0-8.0); NEUT % 70.7 % (16.0-70.0); PLATELET COUNT 79 TH/MM3 (150-450); RED BLOOD COUNT 2.69 MIL/MM3 (4.00-5.30); RED CELL DISTRIBUTION WIDTH 14.8 % (11.6-17.2); WHITE BLOOD COUNT 9.8 TH/MM3 (4.0-11.0)
[2016-11-14 18:42] LABS: HEMO FLAGS AUTO DIFF
[2016-11-14 18:58] LABS: APTT (PATIENT) 30.8 SEC (24.3-30.1); INTERNATIONAL NORMALIZED RATIO 1.8 RATIO; PROTHROMBIN TIME - PATIENT 19.9 SEC (9.8-11.6)
[2016-11-14 19:02] LABS: BICARBONATE 22.5 MEQ/L (21.0-32.0); CALCIUM-PROTEIN CORRECTED 7.9 MG/DL (8.5-10.1); POTASSIUM 3.3 MEQ/L (3.5-5.1); TOTAL BILIRUBIN ADULT 8.2 MG/DL (0.2-1.0)
[2016-11-14 19:08] LABS: BLOOD, URINE NEG (NEG); COMMENT (UR) CULT NOT INDICATED; CULTURE IF INDICATED CULT NOT INDICATED; GLUCOSE,URINE NEG (NEG); KETONE, URINE NEG (NEG); MUCUS URINE FEW /lpf (OCC); NITRITE,URINE NEG (NEG); SQUAMOUS EPITHELIAL CELL URINE 1 /hpf (0-5); URINE COLOR YELLOW (YELLW/STRAW)
[2016-11-14] MEDS ORDERED: POTASSIUM CHLORIDE 20 MEQ CONTROLLED RELEASE TAB PO ONE (19:15)
[2016-11-14] MEDS ORDERED: CALCIUM CHLORIDE INJ 1 GM in DEXTROSE 5% IN WATER 100ML INJ 100 ML IV ONE ×2 (19:15)
[2016-11-14 19:50] LABS: PLATELET ESTIMATE SMEAR LOW (NORMAL); SCAN/DIFF AUTO DIFF CONFIRMED
--- NOTE | 2016-11-15 20:55 | EKG ---
Date Performed: 11/14/2016 Time Performed: 18:13:54 PTAGE: 41 years EKG: SINUS TACHYCARDIA ABNORMAL RHYTHM ECG PREVIOUS TRACING : 10/05/2016 12.16 Compared to prior tracing no significant change DOCTOR: Samson Mendiola Interpretating Date/Time 11/15/2016 20:48:32
[2016-11-24] MEDS ORDERED: B-1250TA PO (20:48)
[2016-11-24] MEDS ORDERED: FURO20TA PO (22:21)
[2016-11-26] MEDS ORDERED: MAPA500C PO (18:46)
[2016-11-26] MEDS ORDERED: DIPH25TA2 PO (18:46)
== END 2016-11-14 21:24 | disposition home or self-care (01) ==
LOC: NEPE 17:35
DX: K70.30 Alcoholic cirrhosis of liver without ascites (principal); R00.0 Tachycardia, unspecified; R60.9 Edema, unspecified; R94.31 Abnormal electrocardiogram [ECG] [EKG]; I51.7 Cardiomegaly; D69.3 Immune thrombocytopenic purpura; K72.90 Hepatic failure, unspecified without coma; E11.9 Type 2 diabetes mellitus without complications; R01.1 Cardiac murmur, unspecified
CPT/HCPCS: 71010; 80053; 81001; 82140; 83690; 84703; 85025; 85610; 85730; 93005; 96365; 96375; 99285; J1170; J1940; J2405

== ENCOUNTER 2016-11-17 09:53 | Day surgery (SDC) | payer OTHER ==
[~2016-11-17 09:53] MED LIST changes: -FOLI1TAB6 PO; -FURO1TAB60 PO; +FURO20TA PO; +FURO80TA PO; +PENT400T PO; +SPIR50TA PO
[2016-11-17 10:18] VITALS: BP 127/73; PULSE 103; RESP 18; TEMP 98; O2SAT 96
[2016-11-17] MEDS ORDERED: BUPIVACAINE HCL PF 0.75% 10 ML VIAL ONE (11:52)
[2016-11-17] MEDS ORDERED: LIDOCAINE HCL 1% 20 ML VIAL ONE (11:53)
[2016-11-17 11:55] VITALS: BP 154/73; PULSE 107; RESP 18; TEMP 98.6; O2SAT 94
[2016-11-17 12:10] VITALS: BP 142/75; PULSE 105; RESP 18; O2SAT 94
[2016-11-17 12:25] VITALS: BP 139/75; PULSE 100; RESP 18; O2SAT 95
[2016-11-17] MEDS ORDERED: ALBUMIN HUMAN 25% 12.5GM-W/25GM FOR 37.5GM IV ONE (12:30)
[2016-11-17] MEDS ORDERED: ALBUMIN HUMAN 25% 25GM-W/12.5GM FOR 37.5GM IV ONE (12:30)
--- NOTE | 2016-11-17 15:38 | RADRPT ---
EXAM DATE/TIME: 11/17/2016 10:21 [facility] COMPARISON: No previous studies available for comparison. INDICATIONS : Ascites. MEDICAL HISTORY : Cirrhosis. Portal hypertension. ETOH. SURGICAL HISTORY : section. Cholecystectomy. Exploratory laporoscopy. ENCOUNTER: Initial ACUITY: 1 day PAIN SCORE: 4/10 LOCATION: Left lower quadrant FLUID: Total volume of 6800 cc of clear, yellow fluid was removed. Fluid was discarded. Paracentesis was therapeutic only. Post procedure scanning reveals no hematoma or other complication. TECHNIQUE: 1. Ultrasound guidance for abdominal paracentesis. 2. Paracentesis. The risks, benefits, and alternatives to ultrasound guided paracentesis were explained to the patient in detail including the risk of bleeding and infection. Written and verbal informed consent was obt ained. With the patient on the ultrasound table, ultrasound imaging was used to select the most appropriate approach for paracentesis. Overlying skin was prepped and draped in the usual sterile fashion and wi th a local anesthetic, a dermatotomy was made with an 11 blade scalpel. A 6 Amharic [id number] ca theter was introduced into the peritoneal cavity and fluid was collected. The patient tolerated the procedure well and left the ultrasound suite in stable condition. CONCLUSION: Uncomplicated ultrasound guided paracentesis. Charli Garibay MD on November 17, 2016 at 15:36 Board Certified Radiologist. This report was verified electronically.
[2016-11-24] MEDS ORDERED: B-1250TA PO (20:48)
[2016-11-24] MEDS ORDERED: FURO20TA PO (22:21)
[2016-11-26] MEDS ORDERED: MAPA500C PO (18:46)
[2016-11-26] MEDS ORDERED: DIPH25TA2 PO (18:46)
== END 2016-11-17 14:27 | disposition home or self-care (01) ==
LOC: HRAD 09:53 → HRIP 09:56 → HRAD 14:27
PROVIDERS: ATTEND Physician Assistant Medical
DX: K70.31 Alcoholic cirrhosis of liver with ascites (principal); F10.20 Alcohol dependence, uncomplicated; K76.6 Portal hypertension
CPT/HCPCS: 49083; 96365; C1729; P9047

== ENCOUNTER 2016-11-24 04:17 | Emergency (ER) | payer OTHER ==
[~2016-11-24] VITALS: Ht 160 cm; Wt 70.0 kg
[2016-11-24 04:19] VITALS: BP 147/79; PULSE 127; RESP 18; TEMP 98.6; O2SAT 98
[2016-11-24 04:59] VITALS: BP 134/68; PULSE 102; RESP 18; O2SAT 98
[2016-11-24] MEDS ORDERED: SODIUM CHLORIDE 0.9% FLUSH 10 ML FLUSH IV FLUSH PRN (05:45)
[2016-11-24] MEDS ORDERED: ONDANSETRON HCL 4 MG/2 ML VIAL IVP ONE (05:45)
[2016-11-24] MEDS ORDERED: B-1250TA PO ×2 (20:48)
[2016-11-24] MEDS ORDERED: FURO20TA PO ×2 (22:21)
== END 2016-11-24 05:52 | disposition left against medical advice (07) ==
LOC: NEPC 04:17
DX: R06.02 Shortness of breath (principal)
CPT/HCPCS: 99281

== ENCOUNTER 2016-11-24 19:23 | Emergency (ER) | payer OTHER ==
[~2016-11-24] VITALS: Ht 160 cm; Wt 68.2 kg
[2016-11-24 19:36] VITALS: BP 131/73; PULSE 119; RESP 18; TEMP 98.5; O2SAT 100
[2016-11-24 19:40] VITALS: BP 124/75; PULSE 109; RESP 20; O2SAT 100
[2016-11-24] MEDS ORDERED: B-1250TA PO ×2 (20:48)
--- NOTE | 2016-11-24 20:52 | PD ---
HPI Chief Complaint: Abdominal Pain Time Seen by Provider: 20:12 Travel History International Travel<30 days: No Contact w/Intl Traveler<30days: No Traveled to known affect area: No History of Present Illness HPI 41-year-old white female presents to the department by EMS for evaluation of shortness of breath. The patient has a history of end-stage liver disease with cirrhosis. She had 8 L of fluid removed this past week from her abdomen. The patient states that she had gotten into an argument with her [id number]. She states that this hasn't seemed to exacerbate her difficulty breathing. On presentation to the ER now she feels much more relaxed and her shortness of breath has significantly improved. She denies any chest pain. No nausea vomiting. She states that she has not drank alcohol in 3 days. She does complain of some intermittent abdominal pain and some chronic pedal edema although this is much improved from her last evaluation ER last week. Patient does complain of diarrhea associated with her lactulose use. She also states that she has not been compliant with her Lasix. She states that she does not like taking so many pills. She realizes that this may be a concerning factor to her shortness of breath. 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) COPD: No Diabetes: Yes (no meds at this time) Patient Takes Glucophage: No Diminished Hearing: No Endocrine: No Genitourinary: No Immune Disorder: No Musculoskeletal: No Neurologic: No Psychiatric: Yes Reproductive: No Respiratory: No Radiation Therapy: No Sleep Apnea: No Thyroid Disease: No Tetanus Vaccination: > 5 Years ?: Not LMP: 02/10..PT STATES HER PERODS STOPPED IN JANUARY Menopausal: Yes : 3 Para: 3 Miscarriage: 0 : 0 Past Surgical History Abdominal Surgery: Yes (ex lap ) Appendectomy: Yes Cardiac Surgery: No Section: Yes (x 3) Cholecystectomy: Yes Genitourinary Surgery: Yes Neurologic Surgery: No Pacemaker: No Thoracic Surgery: No Other Surgery: Yes (gallbladder removal and appendix , 3 c sections ) Social History Alcohol Use: Yes (patient states she quit drinking) Tobacco Use: No Substance Use: No Allergies-Medications (Allergen,Severity, Reaction): Coded Allergies: morphine (Unverified Adverse Reaction, Mild, Nausea/Vomiting, 11/24/16) Reported Meds & Prescriptions Reported Meds & Active Scripts Active Lactulose Liq (Lactulose) 10 Gm/15 Ml Soln 30 Ml PO DAILY take one dose daily of 30 ml and titrate to get at least two to three bowel movements daily Thera M Plus (Multivitamins/Minerals Therapeutic) 1 Tab 1 Tab PO DAILY Pantoprazole (Pantoprazole Sodium) 40 Mg Tab 40 Mg PO DAILY Reported Furosemide 20 Mg Tab 20 Mg PO DAILY B-1 (Thiamine HCl) 250 Mg Tab 250 Mg PO DAILY Spironolactone 50 Mg Tab 50 Mg PO DAILY Pentoxifylline ER (Pentoxifylline) 400 Mg Tab 400 Mg PO DAILY Furosemide 80 Mg Tab 80 Mg PO BID Review of Systems Except as stated in HPI: all other systems reviewed are Neg Physical Exam Narrative GENERAL: Well-developed, well-nourished in no apparent distress. Nontoxic appearing. Patient is resting comfortable in the examination room. She is not tachypneic. Patient does not smell of EtOH. HEAD: Normocephalic, atraumatic. EYES: Pupils equal round and reactive. Extraocular motions intact. Positive scleral icterus. Mildly injection but no drainage. ENT: Nose clear. Throat without erythema, tonsillar hypertrophy or exudate. Uvula midline. Airway patent. NECK: Trachea midline. Supple, nontender, moves head freely. No central bony tenderness or spasm. CARDIOVASCULAR: Regular rate and rhythm without murmurs, gallops, or rubs. RESPIRATORY: Clear to auscultation. Breath sounds equal bilaterally. No wheezes , rales, or rhonchi. GASTROINTESTINAL: Abdomen soft, non-tender, distended with ascites positive fluid shift.No guarding. EXTREMITIES: No clubbing, cyanosis, trace pedal edema. No joint tenderness. BACK: Nontender without deformity. No flank tenderness. NEUROLOGICAL: Awake, alert and oriented x 3 .Cranial nerves grossly intact. Motor and sensory grossly within normal limits. Normal speech. Data Data Last Documented VS Vital Signs Date Time Temp Pulse Resp B/P (MAP) Pulse Ox O2 Delivery O2 Flow Rate FiO2 11/24/16 23:52 102 12 120/74 (89) 96 Room Air 11/24/16 19:36 98.5 Orders Orders Electrocardiogram (11/24/16 20:16) Complete Blood Count With Diff (11/24/16 20:16) Comprehensive Metabolic Panel (11/24/16 20:16) Urinalysis - C+S If Indicated (11/24/16 20:16) Magnesium (Mg) (11/24/16 20:16) Ammonia (11/24/16 20:16) Chest, Single Ap (11/24/16 20:16) Iv Access Insert/Monitor (11/24/16 20:16) Ecg Monitoring (11/24/16 20:16) Oximetry (11/24/16 20:16) Potassium Chloride (Kcl) (11/24/16 22:00) Potassium Chlor 10 Meq Premix (Kcl 10 Me (11/24/16 22:00) Furosemide Inj (Lasix Inj) (11/24/16 23:30) Labs Laboratory Tests Test 11/24/16 20:16 11/24/16 20:40 11/25/16 00:15 White Blood Count 7.8 TH/MM3 Red Blood Count 2.62 MIL/MM3 Hemoglobin 9.6 GM/DL Hematocrit 27.6 % Mean Corpuscular Volume 105.3 FL Mean Corpuscular Hemoglobin 36.5 PG Mean Corpuscular Hemoglobin Concent 34.7 % Red Cell Distribution Width 14.2 % Platelet Count 53 TH/MM3 Mean Platelet Volume 7.4 FL Neutrophils (%) (Auto) 67.8 % Lymphocytes (%) (Auto) 24.9 % Monocytes (%) (Auto) 6.3 % Eosinophils (%) (Auto) 0.3 % Basophils (%) (Auto) 0.7 % Neutrophils # (Auto) 5.3 TH/MM3 Lymphocytes # (Auto) 1.9 TH/MM3 Monocytes # (Auto) 0.5 TH/MM3 Eosinophils # (Auto) 0.0 TH/MM3 Basophils # (Auto) 0.1 TH/MM3 CBC Comment AUTO DIFF Differential Comment AUTO DIFF CONFIRMED Blood Urea Nitrogen 3 MG/DL Creatinine 0.64 MG/DL Random Glucose 158 MG/DL Total Protein 6.3 GM/DL Albumin 2.9 GM/DL Calcium Level 7.8 MG/DL Magnesium Level 2.0 MG/DL Alkaline Phosphatase 157 U/L Aspartate Amino Transf (AST/SGOT) 134 U/L Alanine Aminotransferase (ALT/SGPT) 26 U/L Total Bilirubin 11.9 MG/DL Sodium Level 141 MEQ/L Potassium Level 2.7 MEQ/L Chloride Level 106 MEQ/L Carbon Dioxide Level 24.8 MEQ/L Anion Gap 10 MEQ/L Estimat Glomerular Filtration Rate 103 ML/MIN Ammonia 64 MCMOL/L Urine Color YELLOW Urine Turbidity HAZY Urine pH 6.5 Urine Specific [place] 1.009 Urine Protein NEG mg/dL Urine Glucose (UA) NEG mg/dL Urine Ketones NEG mg/dL Urine Occult Blood MOD Urine Nitrite NEG Urine Bilirubin SMALL Urine Urobilinogen LESS THAN 2.0 MG/DL Urine Leukocyte Esterase TRACE Urine RBC 3 /hpf Urine WBC 5 /hpf Urine Squamous Epithelial Cells 4 /hpf Urine Bacteria OCC /hpf Urine Hyaline Casts 3 /lpf Urine Mucus MANY /lpf Microscopic Urinalysis Comment CULT NOT INDICATED MDM Medical Decision Making Medical Screen Exam Complete: Yes Emergency Medical Condition: Yes Medical Record Reviewed: Yes Interpretation(s) EKG: Sinus tachycardia with a ventricular rate of 106. No abnormal ST-T wave changes. Patient has diffuse in V1 and 2 consistent with an old septal FL. Normal DE. Normal QT interval. Normal axis. Differential Diagnosis Differential diagnoses: Fluid overload, CHF, anxiety, electrolyte abnormality Narrative Course IV access is obtained. Routine laboratory tests sent for analysis. Patient is resting comfortably examination room. She is not complaining of dyspnea at this point. Patient feels significantly improved. She states that her amount of ascites and edema is significantly improved since her last visit. Patient's potassium is 2.7. He is given 10 mEq IV and 60 mEq by mouth. She is on a monitor during her administration. She is given 40 mg of Lasix IV. I discussed the case with Dr. AARON regarding the patient's laboratory findings. He also agrees the patient is medically stable for discharge. The patient has not had any ectopy. She's not complaining of any pains or shortness of breath. The patient is medically stable for discharge at this time. This is hypokalemia, end-stage liver disease, ascites, anxiety Diagnosis Primary Impression: Hypokalemia Additional Impressions: End stage liver disease Ascites due to alcoholic cirrhosis Anxiety attack Patient Instructions: General Instructions Additional Instructions: Rest. Must take your Lasix as prescribed. Must take your lactulose as prescribed. Maintain sobriety. Follow-up with your medical doctor on Sunday for recheck. Med/Other Pt SpecificInfo: No Change to Meds Disposition: 01 DISCHARGE HOME Condition: Stable Cliff Diallo Nov 24, 2016 20:52
[2016-11-24 21:15] VITALS: BP 132/59; PULSE 105; RESP 20; O2SAT 98
--- NOTE | 2016-11-24 21:16 | RADRPT ---
EXAM DATE/TIME: 11/24/2016 20:45 [facility] COMPARISON: CHEST SINGLE AP, November 14, 2016, 17:50. INDICATIONS : Chest pain and shortness of breath. MEDICAL HISTORY : Cardiovascular disease. Diabetes mellitus type II. ETOH abuse. SURGICAL HISTORY : Cholecystectomy. ENCOUNTER: Initial ACUITY: 3 days PAIN SCORE: 5/10 LOCATION: Bilateral chest FINDINGS: Mild atelectasis and small pleural effusions are seen at each lung base. No pneumothorax. Heart size stable, then normal limits. CONCLUSION: Mild bibasilar atelectasis and trace effusions. Michoacano Kuhn MD on November 24, 2016 at 21:15 Board Certified Radiologist. This report was verified electronically.
[2016-11-24 21:17] LABS: AUTOMATED NEUTROPHIL # 5.3 TH/MM3 (1.8-7.7); BASOPHIL # 0.1 TH/MM3 (0-0.2); BASOPHIL % 0.7 % (0.0-2.0); EOSINOPHIL % 0.3 % (0.0-4.0); HEMATOCRIT 27.6 % (35.0-46.0); LYMPH % 24.9 % (9.0-44.0); LYMPHOCYTE # 1.9 TH/MM3 (1.0-4.8); MEAN CELL VOLUME 105.3 FL (80.0-100.0); MEAN CORPUSCULAR HEMOGLOBIN 36.5 PG (27.0-34.0); MEAN CORPUSCULAR HGB CONC 34.7 % (32.0-36.0); MONO % 6.3 % (0.0-8.0); NEUT % 67.8 % (16.0-70.0); PLATELET COUNT 53 TH/MM3 (150-450); RED BLOOD COUNT 2.62 MIL/MM3 (4.00-5.30); RED CELL DISTRIBUTION WIDTH 14.2 % (11.6-17.2); WHITE BLOOD COUNT 7.8 TH/MM3 (4.0-11.0)
[2016-11-24 21:21] LABS: HEMO FLAGS AUTO DIFF
[2016-11-24 21:39] LABS: ALKALINE PHOSPHATASE 157 U/L (45-117); ALT (GPT) 26 U/L (10-53); ANION GAP 10 MEQ/L (5-15); AST (GOT) 134 U/L (15-37); BICARBONATE 24.8 MEQ/L (21.0-32.0); BLOOD UREA NITROGEN 3 MG/DL (7-18); CHLORIDE 106 MEQ/L (98-107); GLOMERULAR FILTRATION RATE 103 ML/MIN (>89); SODIUM (NA) 141 MEQ/L (136-145)
[2016-11-24 21:43] LABS: TOTAL BILIRUBIN ADULT 11.9 MG/DL (0.2-1.0)
[2016-11-24 21:50] LABS: POTASSIUM 2.7 MEQ/L (3.5-5.1)
[2016-11-24 21:54] LABS: SCAN/DIFF AUTO DIFF CONFIRMED
[2016-11-24 22:00] VITALS: BP 105/51; PULSE 115; RESP 20; O2SAT 96
[2016-11-24] MEDS ORDERED: POTASSIUM CHLOR 10 MEQ PREMIX 100 ML IV ONE (22:00)
[2016-11-24] MEDS ORDERED: POTASSIUM CHLORIDE 20 MEQ CONTROLLED RELEASE TAB PO ONE (22:00)
[2016-11-24] MEDS ORDERED: FURO20TA PO ×2 (22:21)
[2016-11-24] MEDS ORDERED: FUROSEMIDE 40 MG/4 ML VIAL IV PUSH ONE (23:30)
[2016-11-24 23:52] VITALS: BP 120/74; PULSE 102; RESP 12; O2SAT 96
[2016-11-25 00:50] LABS: BACTERIA, URINE OCC /hpf; BLOOD, URINE MOD (NEG); COMMENT (UR) CULT NOT INDICATED; CULTURE IF INDICATED CULT NOT INDICATED; GLUCOSE,URINE NEG (NEG); HYALINE CAST, URINE 3 /lpf (RARE); KETONE, URINE NEG (NEG); MUCUS URINE MANY /lpf (OCC); NITRITE,URINE NEG (NEG); PH, URINE 6.5 (5.0-8.5); SQUAMOUS EPITHELIAL CELL URINE 4 /hpf (0-5); URINE COLOR YELLOW (YELLW/STRAW)
[2016-11-25 01:55] VITALS: BP 114/65
--- NOTE | 2016-11-25 08:32 | EKG ---
Date Performed: 11/24/2016 Time Performed: 20:35:24 PTAGE: 41 years EKG: SINUS TACHYCARDIA SEPTAL MYOCARDIAL INFARCTION ABNORMAL ECG PREVIOUS TRACING : 11/14/2016 18.13 No significant change from previous tracing noted. DOCTOR: Russel Shanks Interpretating Date/Time 11/25/2016 08:31:08
[2016-11-26] MEDS ORDERED: MAPA500C PO ×2 (18:46)
[2016-11-26] MEDS ORDERED: DIPH25TA2 PO ×2 (18:46)
== END 2016-11-25 01:57 | disposition home or self-care (01) ==
LOC: NEPD 19:23
DX: E87.6 Hypokalemia (principal); K72.90 Hepatic failure, unspecified without coma; K70.31 Alcoholic cirrhosis of liver with ascites; F41.9 Anxiety disorder, unspecified; R00.0 Tachycardia, unspecified; F10.10 Alcohol abuse, uncomplicated
CPT/HCPCS: 71010; 80053; 81001; 82140; 83735; 85025; 93005; 96365; 96375; 99285; J1940; J3480

== ENCOUNTER 2016-11-26 14:28 | Inpatient (IN) | payer OTHER ==
[2016-11-26] VITALS (8 sets, daily range): BP systolic 116–130; BP diastolic 59–70; PULSE 110–118; RESP 18–24; TEMP 97.6–98.3; O2SAT 94–96
[~2016-11-26] VITALS: Ht 162.6 cm; Wt 68.7 kg
[~2016-11-26 14:28] MED LIST changes: +B-1250TA PO
[2016-11-26] MEDS ORDERED: SODIUM CHLORIDE 0.9% FLUSH 10 ML FLUSH IVF PRN (14:45)
[2016-11-26] MEDS ORDERED: ACETYLCYSTEINE 20% 6,000 MG/30 ML ORAL SOLN VIAL PO ONE (14:45)
--- NOTE | 2016-11-26 14:54 | PD ---
HPI Chief Complaint: OD/ Ingestion Time Seen by Provider: 14:39 Travel History International Travel<30 days: No Contact w/Intl Traveler<30days: No Traveled to known affect area: No History of Present Illness HPI Patient comes in under [place] act by police for attempted suicide. Patient states she was trying to kill herself. Patient states last night she "finished off" a bottle of sleeping pills and took a "handful" of Tylenol today. Bottles were brought with patient shows 50 mg Benadryl tablets and 500 mg Tylenol tablets. Patient reports a bottles were old is uncertain how many pills she actually took of each. Patient denies any medical complaints at this time. Denies any chest pain, shortness breath, fevers, abdominal pain, nausea, vomiting, or diarrhea. Patient reports that she has been jaundiced for several months secondary to her cirrhosis. Patient states she last had her ascites drained about a week ago. Patient [facility] to [facility] for her primary care. 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) COPD: No Diabetes: Yes (no meds at this time) Patient Takes Glucophage: No Diminished Hearing: No Endocrine: No Genitourinary: No Immune Disorder: No Musculoskeletal: No Neurologic: No Psychiatric: Yes Reproductive: No Respiratory: No Radiation Therapy: No Sleep Apnea: No Thyroid Disease: No ?: Not Menopausal: Yes : 3 Para: 3 Miscarriage: 0 : 0 Past Surgical History Abdominal Surgery: Yes (ex lap ) Appendectomy: Yes Cardiac Surgery: No Section: Yes (x 3) Cholecystectomy: Yes Genitourinary Surgery: Yes Neurologic Surgery: No Pacemaker: No Thoracic Surgery: No Other Surgery: Yes (gallbladder removal and appendix , 3 c sections ) Social History Alcohol Use: Yes Tobacco Use: No Substance Use: No Allergies-Medications (Allergen,Severity, Reaction): Coded Allergies: morphine (Unverified Adverse Reaction, Mild, Nausea/Vomiting, 11/26/16) Reported Meds & Prescriptions Reported Meds & Active Scripts Active Lactulose Liq (Lactulose) 10 Gm/15 Ml Soln 30 Ml PO DAILY take one dose daily of 30 ml and titrate to get at least two to three bowel movements daily Thera M Plus (Multivitamins/Minerals Therapeutic) 1 Tab 1 Tab PO DAILY Pantoprazole (Pantoprazole Sodium) 40 Mg Tab 40 Mg PO DAILY Reported Furosemide 20 Mg Tab 20 Mg PO DAILY B-1 (Thiamine HCl) 250 Mg Tab 250 Mg PO DAILY Spironolactone 50 Mg Tab 50 Mg PO DAILY Pentoxifylline ER (Pentoxifylline) 400 Mg Tab 400 Mg PO DAILY Furosemide 80 Mg Tab 80 Mg PO BID Review of Systems Except as stated in HPI: all other systems reviewed are Neg Physical Exam Narrative GENERAL: Well-developed, overly nourished, in no acute distress, and non-ill appearing. SKIN: Jaundice, which patient reports is chronic. HEAD: Atraumatic. Normocephalic. EYES: Pupils equal and round. EOMI. No injection or drainage. ENT: No nasal bleeding or discharge. Mucous membranes pink and moist. NECK: Trachea midline. No JVD. Supple. No nuclear rigidity. CARDIOVASCULAR: Regular rate and rhythm. No murmur appreciated. RESPIRATORY: No accessory muscle use. No respiratory distress. Clear to auscultation. Breath sounds equal bilaterally. MUSCULOSKELETAL: No obvious deformities. No clubbing. No cyanosis. No edema. Full range of motion. NEUROLOGICAL: Awake and alert. No obvious cranial nerve deficits. Motor grossly within normal limits. Normal speech. PSYCHIATRIC: Insight and judgment abnormal. Data Data Last Documented VS Vital Signs Date Time Temp Pulse Resp B/P (MAP) Pulse Ox O2 Delivery O2 Flow Rate FiO2 11/26/16 15:30 115 20 122/68 (86) 96 Room Air 11/26/16 14:33 98.3 Orders Orders Electrocardiogram (11/26/16 14:39) Complete Blood Count With Diff (11/26/16 14:39) Comprehensive Metabolic Panel (11/26/16 14:39) Prothrombin Time / Inr (Pt) (11/26/16 14:39) Act Partial Throm Time (Ptt) (11/26/16 14:39) Urinalysis - C+S If Indicated (11/26/16 14:39) Iv Access Insert/Monitor (11/26/16 14:39) Ecg Monitoring (11/26/16 14:39) Oximetry (11/26/16 14:39) Sodium Chloride 0.9% Flush (Ns Flush) (11/26/16 14:45) Acetylcysteine 20% Liq (Mucomyst 20% Liq (11/26/16 14:45) Acetylcysteine 20% Liq (Mucomyst 20% Liq (11/26/16 15:45) Call Poison Control (11/26/16 14:39) Drug Screen, Random Urine (11/26/16 14:39) Alcohol (Ethanol) (11/26/16 14:39) Salicylates (Aspirin) (11/26/16 14:39) Tylenol (Acetaminophen) (11/26/16 14:39) Psych Screen (11/26/16 15:06) Potassium Chlor 20 Meq Premix (Kcl 20 Me (11/26/16 15:45) Potassium Chloride (Kcl) (11/26/16 15:45) Cath For Specimen (11/26/16 15:53) Ondansetron Inj (Zofran Inj) (11/26/16 16:15) Magnesium (Mg) (11/26/16 14:30) Admit Order (Ed Use Only) (11/26/16 16:42) Labs Laboratory Tests Test 11/26/16 14:30 11/26/16 16:00 White Blood Count 6.3 TH/MM3 Red Blood Count 2.59 MIL/MM3 Hemoglobin 9.8 GM/DL Hematocrit 27.7 % Mean Corpuscular Volume 106.7 FL Mean Corpuscular Hemoglobin 37.8 PG Mean Corpuscular Hemoglobin Concent 35.4 % Red Cell Distribution Width 14.4 % Platelet Count 48 TH/MM3 Mean Platelet Volume 7.3 FL Neutrophils (%) (Auto) 65.4 % Lymphocytes (%) (Auto) 26.6 % Monocytes (%) (Auto) 6.0 % Eosinophils (%) (Auto) 1.1 % Basophils (%) (Auto) 0.9 % Neutrophils # (Auto) 4.1 TH/MM3 Lymphocytes # (Auto) 1.7 TH/MM3 Monocytes # (Auto) 0.4 TH/MM3 Eosinophils # (Auto) 0.1 TH/MM3 Basophils # (Auto) 0.1 TH/MM3 CBC Comment AUTO DIFF Differential Comment AUTO DIFF CONFIRMED Platelet Estimate LOW Platelet Morphology Comment NORMAL Crenated Cell 1+ Acanthocytes 1+ Prothrombin Time 20.7 SEC Prothromb Time International Ratio 1.8 RATIO Activated Partial Thromboplast Time 33.3 SEC Blood Urea Nitrogen 3 MG/DL Creatinine 0.57 MG/DL Random Glucose 134 MG/DL Total Protein 6.3 GM/DL Albumin 2.8 GM/DL Calcium Level 7.6 MG/DL Magnesium Level 1.7 MG/DL Alkaline Phosphatase 160 U/L Aspartate Amino Transf (AST/SGOT) 162 U/L Alanine Aminotransferase (ALT/SGPT) 31 U/L Total Bilirubin 11.9 MG/DL Sodium Level 141 MEQ/L Potassium Level 2.9 MEQ/L Chloride Level 104 MEQ/L Carbon Dioxide Level 25.8 MEQ/L Anion Gap 11 MEQ/L Estimat Glomerular Filtration Rate 118 ML/MIN Salicylates Level LESS THAN 1.7 MG/DL Acetaminophen Level LESS THAN 2.0 MCG/ML Ethyl Alcohol Level 206 MG/DL Urine Opiates Screen NEG Urine Barbiturates Screen NEG Urine Amphetamines Screen NEG Urine Benzodiazepines Screen POS Urine Cocaine Screen NEG Urine Cannabinoids Screen NEG MDM Medical Decision Making Medical Screen Exam Complete: Yes Emergency Medical Condition: Yes Interpretation(s) EKG reviewed by Dr. Mcginnis shows sinus tachycardia with ventricular rate 118. No STEMI. Differential Diagnosis Tylenol overdose, Benadryl overdose, suicidal, electrolyte abnormality, UTI Narrative Course Patient was seen and examined. IV was established and patient is placed on continuous cardiac monitoring. Initial laboratory studies were ordered. Mucomyst was given. Poison control was called. Pill bottles were counted shows 30 Benadryl missing and the 114 Tylenol. Discussed all findings and plan care of patient, who is agreeable for admission. All questions were answered. Discussed patient with Dr. Gallo, who is in agreement with plan of care and disposition. Discussed patient with resident's, who are agreeable to admit the patient. Physician Communication Physician Communication [id number] Jolly, who is agreeable to this patient for Dr. Recinos. Diagnosis Primary Impression: Overdose Qualified Codes: T50.902A - Poisoning by unspecified drugs, medicaments and biological substances, intentional self-harm, initial encounter Additional Impressions: Hypokalemia Alcohol abuse Admitting Information Admitting Physician Requests: Admit Condition: Stable [place] Nov 26, 2016 14:54
[2016-11-26 15:08] LABS: AUTOMATED NEUTROPHIL # 4.1 TH/MM3 (1.8-7.7); BASOPHIL # 0.1 TH/MM3 (0-0.2); BASOPHIL % 0.9 % (0.0-2.0); EOSINOPHIL # 0.1 TH/MM3 (0-0.4); EOSINOPHIL % 1.1 % (0.0-4.0); HEMATOCRIT 27.7 % (35.0-46.0); LYMPH % 26.6 % (9.0-44.0); LYMPHOCYTE # 1.7 TH/MM3 (1.0-4.8); MEAN CELL VOLUME 106.7 FL (80.0-100.0); MEAN CORPUSCULAR HEMOGLOBIN 37.8 PG (27.0-34.0); MEAN CORPUSCULAR HGB CONC 35.4 % (32.0-36.0); NEUT % 65.4 % (16.0-70.0); PLATELET COUNT 48 TH/MM3 (150-450); RED BLOOD COUNT 2.59 MIL/MM3 (4.00-5.30); RED CELL DISTRIBUTION WIDTH 14.4 % (11.6-17.2); WHITE BLOOD COUNT 6.3 TH/MM3 (4.0-11.0)
[2016-11-26 15:13] LABS: HEMO FLAGS AUTO DIFF
[2016-11-26 15:32] LABS: APTT (PATIENT) 33.3 SEC (24.3-30.1); INTERNATIONAL NORMALIZED RATIO 1.8 RATIO; PROTHROMBIN TIME - PATIENT 20.7 SEC (9.8-11.6)
[2016-11-26 15:35] LABS: ALT (GPT) 31 U/L (10-53); ANION GAP 11 MEQ/L (5-15); AST (GOT) 162 U/L (15-37); BICARBONATE 25.8 MEQ/L (21.0-32.0); BLOOD UREA NITROGEN 3 MG/DL (7-18); CHLORIDE 104 MEQ/L (98-107); GLOMERULAR FILTRATION RATE 118 ML/MIN (>89); SODIUM (NA) 141 MEQ/L (136-145)
[2016-11-26 15:38] LABS: POTASSIUM 2.9 MEQ/L (3.5-5.1)
[2016-11-26 15:39] LABS: ALKALINE PHOSPHATASE 160 U/L (45-117); TOTAL BILIRUBIN ADULT 11.9 MG/DL (0.2-1.0)
[2016-11-26 15:41] LABS: ACETAMINOPHEN LESS THAN 2.0 MCG/ML (10.0-30.0); ALCOHOL 206 MG/DL (0-5)
[2016-11-26 15:44] LABS: ACANTHOCYTES 1+ (NORMAL); CRENATED RBCS 1+ (NORMAL); PLATELET ESTIMATE SMEAR LOW (NORMAL); PLATELET MORPHOLOGY NORMAL (NORMAL); SCAN/DIFF AUTO DIFF CONFIRMED
[2016-11-26] MEDS ORDERED: POTASSIUM CHLORIDE 20 MEQ CONTROLLED RELEASE TAB PO ONE ×2 (15:45→22:15)
[2016-11-26] MEDS ORDERED: ACETYLCYSTEINE 20% 6,000 MG/30 ML ORAL SOLN VIAL PO SCH (15:45)
[2016-11-26] MEDS: POTASSIUM CHLOR 20 MEQ PREMIX 100 ML IV SCH ×2 (15:52→18:07)
[2016-11-26] MEDS ORDERED: ONDANSETRON HCL 4 MG/2 ML VIAL IV PUSH ONE (16:15)
[2016-11-26 16:21] LABS: MAGNESIUM 1.7 MG/DL (1.5-2.5)
[2016-11-26 16:47] LABS: BLOOD, URINE NEG (NEG); GLUCOSE,URINE NEG (NEG); KETONE, URINE NEG (NEG); MUCUS URINE MANY /lpf (OCC); NITRITE,URINE NEG (NEG); SQUAMOUS EPITHELIAL CELL URINE 2 /hpf (0-5)
[2016-11-26 16:48] LABS: COMMENT (UR) CATH-CULT NOT IND; CULTURE IF INDICATED CATH CULTURE NOT IND; URINE COLOR DARK-ORANGE (YELLW/STRAW)
[2016-11-26] MEDS ORDERED: SENNOSIDES 8.6 MG TAB PO PRN (17:00)
[2016-11-26] MEDS ORDERED: NALOXONE HCL 0.4 MG/ML AMP IV PUSH PRN (17:00)
[2016-11-26] MEDS ORDERED: MAGNESIUM HYDROXIDE SUSP 30 ML CUP PO PRN (17:00)
[2016-11-26] MEDS ORDERED: LACTULOSE SYRUP 20 GM/30 ML CUP PO PRN (17:00)
[2016-11-26] MEDS ORDERED: SODIUM CHLOR 0.45% 1000 ML INJ 1,000 ML IV ONE (17:00)
[2016-11-26] MEDS ORDERED: BISACODYL 10 MG SUPP RECTAL PRN (17:00)
[2016-11-26] MEDS ORDERED: SODIUM CHLORIDE 0.9% FLUSH 10 ML FLUSH IV FLUSH PRN (17:00)
[2016-11-26] MEDS ORDERED: FLUMAZENIL 0.5 MG/5 ML VIAL IV PUSH PRN (17:15)
[2016-11-26] MEDS ORDERED: LORazepam 2 MG TAB PO PRN (17:15)
[2016-11-26] MEDS ORDERED: LORazepam 2 MG/ML VIAL IV PUSH PRN ×4 (17:15)
--- NOTE | 2016-11-26 17:24 | HHI.HP ---
[facility] Service Family Medicine Primary Care Physician Unknown Admission Diagnosis Tylenol overdose, alcohol abuse, hypokalemia, Diagnoses: International Travel<30 Days: No Contact w/Intl Traveler<30days: No Known Affected Area: No History of Present Illness Patient is a 41-year-old female with past history of anxiety, depression, ITP, cirrhosis with ascites who presented [facility] following attempted suicide. Patient states she's been depressed for months. She is especially upset that her continually leaves for work, he is a first aid trainer who often has to leave home for extended amounts of time. Last night she was feeling especially unappreciated and decided to "fall sleep and not wake up again," so she took "many sleeping pills." When she woke up today she continued to feel unappreciated and was upset that her grandson did not call 911 for her earlier, so she decided to lock herself in her room and ingest "a bunch of Tylenol." She is unsure of how many Tylenol or sleeping pill she had taken. Her grandson was very upset, and called his father and then called 911. She states she then locked herself in her room because she was disappointed that she upset her family. Recently she notes early awakening, lack of interest in things she used to enjoy, feelings of guilt, decreased energy, confusion, increased appetite, no psychomotor retardation. Doesn't currently want to hurt anyone else, and is too upset to talk about hurting herself. She currently has abdominal pain. No nausea, vomiting, fever, chills, chest pain, shortness of breath, change in bowel or bladder habits. (Pablo Baez MD R1) Review of Systems Constitutional: COMPLAINS OF: Fatigue, DENIES: Diaphoretic episodes, Fever, Weight gain, Weight loss, Chills, Dizziness Endocrine: DENIES: Polydipsia, Polyuria, Polyphagia Eyes: DENIES: Blurred vision, Diplopia, Eye pain, Vision loss, Photosensitivity , Double Vision Ears, nose, mouth, throat: COMPLAINS OF: Oral lesions (Bites lip when anxious) , DENIES: Tinnitus, Hearing loss, Nasal discharge, Epistaxis Respiratory: DENIES: Apneas, Cough, Snoring, Wheezing, Hemoptysis, Sputum production, Shortness of breath Cardiovascular: DENIES: Chest pain, Palpitations, Syncope Gastrointestinal: COMPLAINS OF: Abdominal pain, Diarrhea (On lactulose), DENIES : Black stools, Bloody stools, Constipation, Nausea, Vomiting Genitourinary: DENIES: Urgency, Hematuria, Dysuria, Nocturia Musculoskeletal: DENIES: Joint pain, Muscle aches, Stiffness, Joint Swelling Integumentary: DENIES: Pruritus, Rash Hematologic/lymphatic: DENIES: Bruising, Lymphadenopathy Immunologic/allergic: DENIES: Eczema, Urticaria Neurologic: DENIES: Abnormal gait, Headache, Localized weakness, Paresthesias Psychiatric: COMPLAINS OF: Anxiety, Confusion, Mood changes, Depression, Agitation, Suicidal Ideation (stated "maybe, I dont think so"), DENIES: Hallucinations, Homicidal Ideation (Pablo Baez MD R1) Past Family Social History Past Medical History Anxiety Depression ITP DM (she is unsure) Cirrhosis with ascites Past Surgical History 3 c-sections Ex lap with appendectomy Cholecystectomy (Pablo Baez MD R1) Allergies: Coded Allergies: morphine (Unverified Adverse Reaction, Mild, Nausea/Vomiting, 11/26/16) Family History Mom: Ovarian cancer, cardiac stent, in 50s due to "blood in lungs" Dad: Unknown, not involved in life Sister: some sort of gi problems, she is unsure Not close to other siblings Social History Alcohol: drinks two 4 locos a day Tobacco: Never Drugs: Speed in the past, nothing recently Lives with , grandson in a house. (Pablo Baez MD R1) Physical Exam Vital Signs Vital Signs Date Time Temp Pulse Resp B/P (MAP) Pulse Ox O2 Delivery O2 Flow Rate FiO2 11/26/16 16:00 114 20 125/69 (87) 95 Room Air 11/26/16 15:30 115 20 122/68 (86) 96 Room Air 11/26/16 15:00 113 24 130/60 (83) 96 Room Air 11/26/16 14:46 112 24 95 Room Air 11/26/16 14:43 95 Room Air 11/26/16 14:33 98.3 118 20 126/70 (88) 94 Physical Exam GENERAL: This is a well-nourished, well-developed patient, crying. SKIN: No rashes or lesions. Ecchymosis on right thorax, right shoulder. Cool and dry. HEAD: Atraumatic. Normocephalic. No temporal or scalp tenderness. EYES: Pupils equal round and reactive. Extraocular motions intact. No scleral icterus. No injection or drainage. ENT: Nose without bleeding, purulent drainage or septal hematoma. Throat without erythema, tonsillar hypertrophy or exudate. Uvula midline. Airway patent. NECK: Trachea midline. No JVD or lymphadenopathy. Supple, nontender, no meningeal signs. CARDIOVASCULAR: Regular rate and rhythm without murmurs, gallops, or rubs. RESPIRATORY: Clear to auscultation. Breath sounds equal bilaterally. No wheezes , rales, or rhonchi. GASTROINTESTINAL: Abdomen soft, tender in all quadrants, mildly distended, guarding. MUSCULOSKELETAL: Extremities without clubbing, cyanosis, or edema. No joint tenderness, effusion, or edema noted. No calf tenderness. NEUROLOGICAL: Awake and alert. Motor and sensory grossly within normal limits. Five out of 5 muscle strength in all muscle groups. Normal speech. Laboratory Laboratory Tests Test 11/26/16 14:30 11/26/16 16:00 White Blood Count 6.3 Red Blood Count 2.59 Hemoglobin 9.8 Hematocrit 27.7 Mean Corpuscular Volume 106.7 Mean Corpuscular Hemoglobin 37.8 Mean Corpuscular Hemoglobin Concent 35.4 Red Cell Distribution Width 14.4 Platelet Count 48 Mean Platelet Volume 7.3 Neutrophils (%) (Auto) 65.4 Lymphocytes (%) (Auto) 26.6 Monocytes (%) (Auto) 6.0 Eosinophils (%) (Auto) 1.1 Basophils (%) (Auto) 0.9 Neutrophils # (Auto) 4.1 Lymphocytes # (Auto) 1.7 Monocytes # (Auto) 0.4 Eosinophils # (Auto) 0.1 Basophils # (Auto) 0.1 CBC Comment AUTO DIFF Differential Comment AUTO DIFF CONFIRMED Platelet Estimate LOW Platelet Morphology Comment NORMAL Crenated Cell 1+ Acanthocytes 1+ Prothrombin Time 20.7 Prothromb Time International Ratio 1.8 Activated Partial Thromboplast Time 33.3 Blood Urea Nitrogen 3 Creatinine 0.57 Random Glucose 134 Total Protein 6.3 Albumin 2.8 Calcium Level 7.6 Magnesium Level 1.7 Alkaline Phosphatase 160 Aspartate Amino Transf (AST/SGOT) 162 Alanine Aminotransferase (ALT/SGPT) 31 Total Bilirubin 11.9 Sodium Level 141 Potassium Level 2.9 Chloride Level 104 Carbon Dioxide Level 25.8 Anion Gap 11 Estimat Glomerular Filtration Rate 118 Salicylates Level LESS THAN 1.7 Acetaminophen Level LESS THAN 2.0 Ethyl Alcohol Level 206 Urine Color DARK-ORANGE Urine Turbidity HAZY Urine pH 7.0 Urine Specific [place] 1.021 Urine Protein 30 Urine Glucose (UA) NEG Urine Ketones NEG Urine Occult Blood NEG Urine Nitrite NEG Urine Bilirubin MOD Urine Urobilinogen GREATER THAN 12.0 Urine Leukocyte Esterase NEG Urine RBC 1 Urine WBC 2 Urine Squamous Epithelial Cells 2 Urine Mucus MANY Microscopic Urinalysis Comment CATH-CULT NOT IND Urine Opiates Screen NEG Urine Barbiturates Screen NEG Urine Amphetamines Screen NEG Urine Benzodiazepines Screen POS Urine Cocaine Screen NEG Urine Cannabinoids Screen NEG (Pablo Baez MD R1) Result Diagram: 11/26/16 1430 11/26/16 143 Caprini VTE Risk Assessment Caprini VTE Risk Assessment: No/Low Risk (score <= 1) VTE Pharm Contraindication: Thrombocytopenia(<50) Caprini Risk Assessment Model Point Value = 1 Point Value = 2 Point Value = 3 Point Value = 5 Age 41-60 Minor surgery BMI > 25 kg/m2 Swollen legs Varicose veins or History of unexplained or recurrent spontaneous Oral contraceptives or hormone replacement Sepsis (< 1 month) Serious lung disease, including pneumonia (< 1 month) Abnormal pulmonary function Acute myocardial infarction Congestive heart failure (< 1 month) History of inflammatory bowel disease Medical patient at bed rest Age 61-74 Arthroscopic surgery Major open surgery (> 45 min) Laparoscopic surgery (> 45 min) Malignancy Confined to bed (> 72 hours) Immobilizing plaster cast Central venous access Age >= 75 History of VTE Family history of VTE Factor V Leiden Prothrombin [id number] Lupus anticoagulant Anticardiolipin antibodies Elevated serum homocysteine Heparin-induced thrombocytopenia Other congenital or acquired thrombophilia Stroke (< 1 month) Elective arthroplasty Hip, pelvis, or leg fracture Acute spinal cord injury (< 1 month) Prophylaxis Regimen Total Risk Factor Score Risk Level Prophylaxis Regimen 0-1 Low Early ambulation 2 Moderate Order ONE of the following: *Sequential Compression Device (SCD) *Heparin 5000 units SQ BID 3-4 Higher Order ONE of the following medications: *Heparin 5000 units SQ TID *Enoxaparin/Lovenox 40 mg SQ daily (WT < 150 kg, CrCl > 30 mL/min) *Enoxaparin/Lovenox 30 mg SQ daily (WT < 150 kg, CrCl > 10-29 mL/min) *Enoxaparin/Lovenox 30 mg SQ BID (WT < 150 kg, CrCl > 30 mL/min) AND/OR *Sequential Compression Device (SCD) 5 or more Highest Order ONE of the following medications: *Heparin 5000 units SQ TID (Preferred with Epidurals) *Enoxaparin/Lovenox 40 mg SQ daily (WT < 150 kg, CrCl > 30 mL/min) *Enoxaparin/Lovenox 30 mg SQ daily (WT < 150 kg, CrCl > 10-29 mL/min) *Enoxaparin/Lovenox 30 mg SQ BID (WT < 150 kg, CrCl > 30 mL/min) AND *Sequential Compression Device (SCD) (Pablo Baez MD R1) Assessment and Plan Assessment and Plan 41 -year-old female with past history of cirrhosis, ITP, anxiety, depression who attempted suicide with diphenhydramine and acetaminophen. Started on acetylcysteine in ED. Acetaminophen level less than 2.0. Abdominal pain. Reports paracentesis within the past week. Afebrile. (Pablo Baez MD R1) Attending Attestation The patient has been seen and examined. The chart and all resident notes have been reviewed. I agree that inpatient care is appropriate and that a two midnight stay is expected for the reasons documented in the resident history and physical. I have discussed this with the resident and certify the resident s order for inpatient admission. (Christin Recinos MD) Problem List: (1) Overdose ICD Codes: T50.901A - Poisoning by unspecified drugs, medicaments and biological substances, accidental (unintentional), initial encounter Status: Acute Plan: Ingested unknown quantity of diphenhydramine last night and unknown amount of acetaminophen this morning. Started on by mouth N-acetylcysteine in ED. Acetaminophen level less than 2.0. Spoke with poison control, agreed with switching by mouth regimen to IV and continuing for the 20 hour regimen. * 20 hour N-acetylcysteine regimen, 50 mg/kg for 4 hours, 100 mg per Cotrim for 16 hours * Follow-up CMP and INR 2 hours prior to end of regimen * Trend acetaminophen levels * Trend CMP * Abdominal pain possibly due to by mouth regimen, switched to IV regimen (2) Suicidal ideation ICD Codes: R45.851 - Suicidal ideation Status: Acute Plan: Attempted suicide last night and this morning. Does not fully endorse suicidal ideation at time of interview. * Psychiatric consult * Close observation * Not fully open to depression medication at this time, will need to discuss the future (3) Chronic ITP (idiopathic thrombocytopenia) ICD Codes: D69.3 - Immune thrombocytopenic purpura Plan: Chronic ITP, platelets 48 admission, around baseline. * Continue to monitor * Observe for symptoms and signs (4) Alcohol abuse ICD Codes: F10.10 - Alcohol abuse, uncomplicated Status: Acute Plan: Drinks 2 four locos every night. * [facility] protocol * Alcohol cessation counseling (5) Hypokalemia ICD Codes: E87.6 - Hypokalemia Status: Acute Plan: Potassium 2.9 at time of admission * Given 40 mEq by mouth and 40 mEq IV in ED * Monitor and correct as needed (6) Cirrhosis of liver ICD Codes: K74.60 - Unspecified cirrhosis of liver Status: Acute Plan: History of liver cirrhosis with ascites. Currently has abdominal pain. Afebrile. Normal white blood cell count. * Follow-up ultrasound * Reports recent paracentesis, states she doesn't need one now and doesn't know how often she gets them * Monitor for ascites buildup (7) Anemia ICD Codes: D64.9 - Anemia Status: Chronic Plan: Chronic anemia. Hemoglobin 9.8 admission * Currently at baseline * Continue to monitor and transfuse as necessary (8) FEN Plan: Fluids * Fluids by mouth Electrolytes * Hypokalemia, currently being corrected * Monitor and correct as needed Nutrition * Liquid diet Prophylaxis * Currently thrombocytopenic (Pablo Baez MD R1) Physician Certification 2 Midnight Certification Type: Admission for Inpatient Services Order for Inpatient Services The services are ordered in accordance with Medicare regulations or non- Medicare payer requirements, as applicable. In the case of services not specified as inpatient-only, they are appropriately provided as inpatient services in accordance with the 2-midnight benchmark. Estimated LOS (days): 2 2 days is the estimated time the patient will need to remain in the hospital, assuming treatment plan goals are met and no additional complications. Post-Hospital Plan: Home (Pablo Baez MD R1) Problem Qualifiers (1) Overdose: Qualified Codes: T50.902A - Poisoning by unspecified drugs, medicaments and biological substances, intentional self-harm, initial encounter Pablo Baez MD R1 Nov 26, 2016 17:23 Christin Recinos MD Nov 27, 2016 20:40
--- NOTE | 2016-11-26 17:38 | RADRPT ---
EXAM DATE/TIME: 11/26/2016 17:07 [facility] COMPARISON: CHEST SINGLE AP, November 24, 2016, 20:45. INDICATIONS : Overdose- shortness of breath. MEDICAL HISTORY : Heart murmur. SURGICAL HISTORY : None. ENCOUNTER: Initial ACUITY: 1 day PAIN SCORE: 0/10 LOCATION: Bilateral chest FINDINGS: The examination is abnormal demonstrating interval development of a prominent area of consolidation i n the lower lateral right lung causing loss of delineation of the lateral two thirds of the right hem idiaphragm. There is also horizontal linear opacities in the lower lateral left lung which may repre sent subsegmental atelectasis or infiltrates. The heart is normal in size. CONCLUSION: Interval development of consolidation right lower lung and patchy infiltrates in the left lower lung. No radiopaque foreign body seen. Valentin El MD on November 26, 2016 at 17:36 Board Certified Radiologist. This report was verified electronically.
[2016-11-26 17:51] LABS: BETA HCG QUANT LESS THAN 1 MIU/ML (0-5)
[2016-11-26 17:52] LABS: CREATINE KINASE 111 U/L (26-192)
[2016-11-26 18:05] LABS: CKMB 0.9 NG/ML (0.5-3.6)
--- NOTE | 2016-11-26 18:37 | RADRPT ---
EXAM DATE/TIME: 11/26/2016 17:43 [facility] COMPARISON: No previous studies available for comparison. INDICATIONS : Abdomen pain and acetaminophen overdose. MEDICAL HISTORY : Cirrhosis. Portal hypertension. ETOH abuse. SURGICAL HISTORY : section. Cholecystectomy. Exploratory laporoscopy. ENCOUNTER: Subsequent ACUITY: 1 day PAIN SCORE: 8/10 LOCATION: Bilateral Abdomen. MEASUREMENTS: LIVER: 16.1 cm length COMMON DUCT: 3 mm RIGHT KIDNEY: 11.4 x 5.5 x 5.1 cm LEFT KIDNEY: 11.2 x 5.2 x 5.9 cm SPLEEN: 14.1 cm length AORTA: 1.9cm maximal FINDINGS: There is a moderate amount of ascites seen throughout the abdomen. Hepatopedal flow seen in the port al vein. LIVER: Normal echotexture without focal lesion or ductal dilatation. COMMON DUCT: No intraluminal mass or stone visualized. GALLBLADDER: Cholecystectomy PANCREAS: No gross abnormality seen in the visualized portion of the head and body of the pancreas. RIGHT KIDNEY: No hydronephrosis, stone or mass. LEFT KIDNEY: No hydronephrosis, stone or mass. SPLEEN: No focal lesion. AORTA: Non aneurysmal. IVC: Within normal limits. CONCLUSION: 1. Hepatomegaly without focal lesion. 2. Moderate amount of ascites. Valentin El MD on November 26, 2016 at 18:34 Board Certified Radiologist. This report was verified electronically.
[2016-11-26] MEDS ORDERED: DIPH25TA2 PO ×2 (18:46)
[2016-11-26] MEDS ORDERED: MAPA500C PO ×2 (18:46)
[2016-11-26] MEDS ORDERED: ACETYLCYSTEINE IV ONE ×4 (19:00→23:00)
[2016-11-26] MEDS ORDERED: DEXTROSE 5% IV ONE ×4 (19:00→23:00)
[2016-11-26] MEDS ORDERED: WATE IV ONE ×4 (19:00→23:00)
[2016-11-26] MEDS: SODIUM CHLOR 0.9% 1000 ML INJ 1,000 ML IV SCH (19:44)
[2016-11-26 19:51] LABS: LACTIC ACID GHOST NOT REPORTABLE
[2016-11-26 20:09] LABS: BLOOD GAS BASE EXCESS 0.6 mmol/L (-2-2); BLOOD GAS CARBOXYHEMOGLOBIN 3.4 % (0-4); BLOOD GAS HCO3 24 mmol/L (22-26); BLOOD GAS METHEMOGLOBIN 0.2 % (0-2); BLOOD GAS O2 HGB SATURATION 90 % (90-100); BLOOD GAS OXYGEN CONTENT 9.9 Vol % (12.0-20.0); BLOOD GAS PCO2 32 mmHg (38-42); BLOOD GAS PO2 65 mmHG (61-120); BLOOD GAS TOTAL HGB 7.8 G/DL (12.0-16.0); CRITICAL VALUE NO; TEMP CORR TO 98.6
[2016-11-26 20:10] LABS: DRAW SITE RT RADIAL; FIO2 21 %; NUMBER OF ARTERIAL PUNCTURES 1; OXYGEN DEVICE ROOM AIR; STAT YES; ULNAR PULSE PRESENT
[2016-11-26] MEDS: DOCUSATE SODIUM 50 MG/SENNA 8.6 MG TAB PO SCH (21:00)
[2016-11-26 21:05] LABS: ALKALINE PHOSPHATASE 123 U/L (45-117); ALT (GPT) 33 U/L (10-53); ANION GAP 12 MEQ/L (5-15); AST (GOT) 133 U/L (15-37); BICARBONATE 23.7 MEQ/L (21.0-32.0); BLOOD UREA NITROGEN 4 MG/DL (7-18); CHLORIDE 105 MEQ/L (98-107); GLOMERULAR FILTRATION RATE 168 ML/MIN (>89); POTASSIUM 3.3 MEQ/L (3.5-5.1); SODIUM (NA) 141 MEQ/L (136-145); TOTAL BILIRUBIN ADULT 10.8 MG/DL (0.2-1.0)
[2016-11-26 21:08] LABS: ACETAMINOPHEN LESS THAN 2.0 MCG/ML (10.0-30.0)
[2016-11-26 21:16] LABS: INTERNATIONAL NORMALIZED RATIO 2.7 RATIO; PROTHROMBIN TIME - PATIENT 30.8 SEC (9.8-11.6)
[2016-11-26 22:15] LABS: CREATINE KINASE 92 U/L (26-192)
[2016-11-26] MEDS: SODIUM CHLORIDE 0.9% FLUSH 10 ML FLUSH IV FLUSH SCH (23:10)
[2016-11-27 00:39] LABS: INTERNATIONAL NORMALIZED RATIO 2.3 RATIO; PROTHROMBIN TIME - PATIENT 26.3 SEC (9.8-11.6)
[2016-11-27 00:56] LABS: ACETAMINOPHEN LESS THAN 2.0 MCG/ML (10.0-30.0); ALKALINE PHOSPHATASE 118 U/L (45-117); ALT (GPT) 31 U/L (10-53); ANION GAP 11 MEQ/L (5-15); AST (GOT) 127 U/L (15-37); BLOOD UREA NITROGEN 4 MG/DL (7-18); CHLORIDE 105 MEQ/L (98-107); CREATINE KINASE 91 U/L (26-192); GLOMERULAR FILTRATION RATE 144 ML/MIN (>89); MAGNESIUM 1.6 MG/DL (1.5-2.5); POTASSIUM 3.2 MEQ/L (3.5-5.1); SODIUM (NA) 139 MEQ/L (136-145); TOTAL BILIRUBIN ADULT 10.3 MG/DL (0.2-1.0)
[2016-11-27] MEDS: SODIUM CHLOR 0.9% 1000 ML INJ 1,000 ML IV SCH ×3 (02:16→20:48)
[2016-11-27 04:00] VITALS: BP 132/65; PULSE 118; RESP 20; TEMP 99.3; O2SAT 94
[2016-11-27 04:50] LABS: INTERNATIONAL NORMALIZED RATIO 2.3 RATIO; PROTHROMBIN TIME - PATIENT 26.5 SEC (9.8-11.6)
[2016-11-27 04:51] LABS: ALKALINE PHOSPHATASE 121 U/L (45-117); ALT (GPT) 30 U/L (10-53); ANION GAP 11 MEQ/L (5-15); AST (GOT) 130 U/L (15-37); BICARBONATE 23.9 MEQ/L (21.0-32.0); BLOOD UREA NITROGEN 4 MG/DL (7-18); CALCIUM-PROTEIN CORRECTED 7.8 MG/DL (8.5-10.1); CHLORIDE 104 MEQ/L (98-107); GLOMERULAR FILTRATION RATE 163 ML/MIN (>89); POTASSIUM 3.1 MEQ/L (3.5-5.1); SODIUM (NA) 139 MEQ/L (136-145)
[2016-11-27 04:52] LABS: ACETAMINOPHEN LESS THAN 2.0 MCG/ML (10.0-30.0); TOTAL BILIRUBIN ADULT 11.2 MG/DL (0.2-1.0)
[2016-11-27] MEDS ORDERED: POTASSIUM CHLORIDE 10 MEQ CONTROLLED RELEASE TAB PO ONE (05:15)
[2016-11-27 08:00] VITALS: BP 120/58; PULSE 120; RESP 20; TEMP 99; O2SAT 94
[2016-11-27 08:27] LABS: AUTOMATED NEUTROPHIL # 2.9 TH/MM3 (1.8-7.7); BASOPHIL % 0.6 % (0.0-2.0); HEMATOCRIT 22.4 % (35.0-46.0); LYMPH % 25.2 % (9.0-44.0); LYMPHOCYTE # 1.1 TH/MM3 (1.0-4.8); MEAN CELL VOLUME 108.6 FL (80.0-100.0); MEAN CORPUSCULAR HEMOGLOBIN 38.3 PG (27.0-34.0); MEAN CORPUSCULAR HGB CONC 35.2 % (32.0-36.0); MONO % 5.2 % (0.0-8.0); PLATELET COUNT 30 TH/MM3 (150-450); RED BLOOD COUNT 2.06 MIL/MM3 (4.00-5.30); RED CELL DISTRIBUTION WIDTH 14.4 % (11.6-17.2); WHITE BLOOD COUNT 4.3 TH/MM3 (4.0-11.0)
[2016-11-27 08:30] LABS: HEMO FLAGS AUTO DIFF
[2016-11-27 08:40] LABS: INTERNATIONAL NORMALIZED RATIO 2.4 RATIO; PROTHROMBIN TIME - PATIENT 27.4 SEC (9.8-11.6)
[2016-11-27 09:11] LABS: ALKALINE PHOSPHATASE 123 U/L (45-117); ALT (GPT) 26 U/L (10-53); ANION GAP 12 MEQ/L (5-15); AST (GOT) 127 U/L (15-37); BICARBONATE 22.4 MEQ/L (21.0-32.0); BLOOD UREA NITROGEN 3 MG/DL (7-18); CALCIUM-PROTEIN CORRECTED 8.4 MG/DL (8.5-10.1); CHLORIDE 104 MEQ/L (98-107); GLOMERULAR FILTRATION RATE 168 ML/MIN (>89); POTASSIUM 3.4 MEQ/L (3.5-5.1); SODIUM (NA) 138 MEQ/L (136-145); TOTAL BILIRUBIN ADULT 11.6 MG/DL (0.2-1.0)
[2016-11-27 09:12] LABS: ACETAMINOPHEN LESS THAN 2.0 MCG/ML (10.0-30.0)
[2016-11-27] MEDS: DOCUSATE SODIUM 50 MG/SENNA 8.6 MG TAB PO SCH ×2 (09:41→20:06)
[2016-11-27] MEDS: LORazepam 1 MG TAB PO PRN ×2 (09:41→13:37)
[2016-11-27 10:07] LABS: BANDS 3 % (0-6); EOSINOPHILS 1 % (0-4); PLATELET ESTIMATE SMEAR LOW (NORMAL); PLATELET MORPHOLOGY NORMAL (NORMAL); POLYS (SEG NEUTROPHILS) 67 % (16-70); SCAN/DIFF FINAL DIFF MANUAL; WBC DIFF SAMPLE 100
[2016-11-27 10:08] LABS: ACANTHOCYTES 1+ (NORMAL); BURR CELLS 1+ (NORMAL)
--- NOTE | 2016-11-27 11:34 | RADRPT ---
EXAM DATE/TIME: 11/27/2016 11:10 [facility] COMPARISON: CHEST SINGLE AP, November 26, 2016, 17:07. INDICATIONS : Chest pain, short of breath. MEDICAL HISTORY : Cardiovascular disease. Diabetes mellitus type II. etoh abuse, heart murmur SURGICAL HISTORY : Cholecystectomy. ENCOUNTER: Subsequent ACUITY: 3 days PAIN SCORE: 8/10 LOCATION: Bilateral chest FINDINGS: Bibasilar parenchymal opacities and bilateral effusions persist without significant change. No visual ized cardiac contours are grossly stable. CONCLUSION: Bilateral infiltrates and effusions, right worse than left Michoacano Mcmullen MD on November 27, 2016 at 11:32 Board Certified Radiologist. This report was verified electronically.
[2016-11-27 12:00] VITALS: BP 131/60; PULSE 125; RESP 21; TEMP 99.7; O2SAT 95
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
[2016-11-27] MEDS ORDERED: AZITHROMYCIN 250 MG TAB PO ONE (15:30)
[2016-11-27] MEDS ORDERED: PROPRANOLOL HCL 10 MG TAB PO PRN (15:45)
[2016-11-27] MEDS: cefTRIAXone INJ 1,000 MG in SODIUM CHLORIDE 0.9% INJ 100 ML IV SCH (15:51)
[2016-11-27] MEDS: SODIUM CHLORIDE 0.9% FLUSH 10 ML FLUSH IV FLUSH SCH ×2 (15:52→22:35)
[2016-11-27 16:00] VITALS: BP 128/56; PULSE 120; RESP 20; TEMP 99.8; O2SAT 96
[2016-11-27 16:51] LABS: INTERNATIONAL NORMALIZED RATIO 2.4 RATIO
--- NOTE | 2016-11-27 17:07 | HHI.FPPN ---
Subjective Subjective Patient seen and examined with the resident team. Case reviewed and discussed Please refer to resident H&P for further details regarding HPI, ROS, PMH, SUurgHx, FH and SocHx In summary, patient is a 41yoF with a history of cirrhosis, chronic alcoholism, ITP presenting after a suicide attempt by Benadryl and Tylenol overdose. She is seen in her hospital room stating she realizes what she has done. She does complain of chronic abdominal pain which is unchanged. [facility] Objective Objective Last Impressions Chest X-Ray 11/27/16 0000 Signed Impressions: Service Date/Time: Sunday, November 27, 2016 11:10 - CONCLUSION: Bilateral infiltrates and effusions, right worse than left Michoacano Mcmullen MD Abdomen Ultrasound 11/26/16 0000 Signed Impressions: Service Date/Time: Saturday, November 26, 2016 17:43 - CONCLUSION: 1. Hepatomegaly without focal lesion. 2. Moderate amount of ascites. Valentin El MD Laboratory Tests - Abnormals Test 11/26/16 19:50 11/26/16 19:56 11/27/16 00:12 11/27/16 04:00 Prothrombin Time 30.8 SEC 26.3 SEC 26.5 SEC Blood Urea Nitrogen 4 MG/DL 4 MG/DL 4 MG/DL Creatinine 0.42 MG/DL 0.48 MG/DL 0.43 MG/DL Random Glucose 114 MG/DL 160 MG/DL 122 MG/DL Total Protein 5.4 GM/DL 5.2 GM/DL 5.3 GM/DL Albumin 2.2 GM/DL 2.2 GM/DL 2.2 GM/DL Calcium Level 7.1 MG/DL 7.0 MG/DL 6.9 MG/DL Alkaline Phosphatase 123 U/L 118 U/L 121 U/L Aspartate Amino Transf (AST/SGOT) 133 U/L 127 U/L 130 U/L Total Bilirubin 10.8 MG/DL 10.3 MG/DL 11.2 MG/DL Potassium Level 3.3 MEQ/L 3.2 MEQ/L 3.1 MEQ/L Lactic Acid Level 4.8 mmol/L Protein Corrected Calcium 8.0 MG/DL 8.0 MG/DL 7.8 MG/DL Acetaminophen Level LESS THAN 2.0 MCG/ML LESS THAN 2.0 MCG/ML LESS THAN 2.0 MCG/ML Arterial Blood pH 7.48 Arterial Blood Partial Pressure CO2 32 mmHg Arterial Blood Oxygen Content 9.9 Vol % Blood Gas Hemoglobin 7.8 G/DL Phosphorus Level 2.2 MG/DL Test 11/27/16 07:43 11/27/16 07:45 11/27/16 08:25 11/27/16 16:24 Blood Urea Nitrogen 3 MG/DL Creatinine 0.42 MG/DL Total Protein 5.3 GM/DL Albumin 2.2 GM/DL Calcium Level 7.4 MG/DL Alkaline Phosphatase 123 U/L Aspartate Amino Transf (AST/SGOT) 127 U/L Total Bilirubin 11.6 MG/DL Potassium Level 3.4 MEQ/L Protein Corrected Calcium 8.4 MG/DL Acetaminophen Level LESS THAN 2.0 MCG/ML Red Blood Count 2.06 MIL/MM3 Hemoglobin 7.9 GM/DL Hematocrit 22.4 % Mean Corpuscular Volume 108.6 FL Mean Corpuscular Hemoglobin 38.3 PG Platelet Count 30 TH/MM3 Platelet Estimate LOW Jayne Cells 1+ Acanthocytes 1+ Prothrombin Time 27.4 SEC 27.0 SEC Lactic Acid Level 3.3 mmol/L 2.2 mmol/L Vital Signs 11/26/16 11/26/16 11/27/16 11/27/16 18:00 22:12 04:00 08:00 Temp 97.6 99.3 99.0 Pulse 112 112 118 120 Resp 22 18 20 20 B/P (MAP) 116/59 (78) 116/59 (78) 132/65 (87) 120/58 (78) Pulse Ox 96 95 94 94 O2 Delivery Room Air 11/27/16 11/27/16 12:00 16:00 Temp 99.7 99.8 Pulse 125 120 Resp 21 20 B/P (MAP) 131/60 (83) 128/56 (80) Pulse Ox 95 96 INTAKE & OUTPUT 11/28/16 07:00 Intake Total 100 ml Balance 100 ml Physical exam GENERAL: wd female, resting in bed. SKIN: Warm and dry. Jaundiced HEAD: Normocephalic. AT EYES: No scleral icterus. No injection or drainage. ENT: OP clear. NECK: Supple, trachea midline. + elevated JVP. CARDIOVASCULAR: Regular rate and rhythm without murmurs, gallops, or rubs. RESPIRATORY: Breath sounds equal bilaterally. No accessory muscle use. GASTROINTESTINAL: Abdomen soft, non-tender, mildly distended. No rebound. + fluid wave MUSCULOSKELETAL: No cyanosis, or edema. BACK: Nontender without obvious deformity. No CVA tenderness. NEURO: Awake and alert. Normal speech. CN grossly intact. PSYCH: Tearful. Assessment Assessment 41yoF with: Overdose Depression Anxiety ITP DM Cirrhosis with ascites Chronic alcoholism Anemia Hypokalemia Lactic acidosis PLAN PLAN Psych consult Acetylcysteine protocol Trend acetaminophen level Trend INR, LFTs Abdominal ultrasound Sepsis work-up- no IVF due to cirrhosis/hepatic congestion Sitter Counseled on alcohol cessation CIWA protocol Patient seen and examined with the resident team. Case reviewed and discussed Agree with plan of care as discussed with me and documented in the resident note. Christin Recinos MD Nov 27, 2016 17:07
[2016-11-27 18:31] LABS: BICARBONATE 25.8 MEQ/L (21.0-32.0); CALCIUM-PROTEIN CORRECTED 8.4 MG/DL (8.5-10.1); MAGNESIUM 1.5 MG/DL (1.5-2.5); POTASSIUM 3.4 MEQ/L (3.5-5.1); TOTAL BILIRUBIN ADULT 11.3 MG/DL (0.2-1.0)
--- NOTE | 2016-11-27 19:38 | EKG ---
Date Performed: 11/26/2016 Time Performed: 14:41:52 PTAGE: 41 years EKG: SINUS TACHYCARDIA SEPTAL MYOCARDIAL INFARCTION ABNORMAL ECG PREVIOUS TRACING : 11/24/2016 20.35 Compared to prior tracing no significant change DOCTOR: Samson Mendiola Interpretating Date/Time 11/27/2016 19:33:47
[2016-11-27 20:00] VITALS: BP 134/66; PULSE 118; PULSE 122; RESP 20; TEMP 98; O2SAT 98
[2016-11-27 22:04] LABS: HEMATOCRIT 21.3 % (35.0-46.0)
[2016-11-27 22:18] LABS: REVIEW FLAG FINAL
[2016-11-28] VITALS: BP 112/64; PULSE 92; RESP 20; TEMP 99; O2SAT 96
[2016-11-28 01:35] VITALS: O2SAT 94
[2016-11-28 04:00] VITALS: BP 106/60; PULSE 88; RESP 20; TEMP 98.8; O2SAT 97
[2016-11-28] MEDS: SODIUM CHLOR 0.9% 1000 ML INJ 1,000 ML IV SCH ×2 (05:49→08:36)
[2016-11-28 08:00] VITALS: BP 114/58; PULSE 87; RESP 16; TEMP 98.5; O2SAT 97
[2016-11-28 08:10] VITALS: PULSE 92
[2016-11-28 08:10] LABS: AUTOMATED NEUTROPHIL # 2.7 TH/MM3 (1.8-7.7); BASOPHIL % 0.5 % (0.0-2.0); EOSINOPHIL # 0.1 TH/MM3 (0-0.4); EOSINOPHIL % 2.1 % (0.0-4.0); HEMATOCRIT 22.5 % (35.0-46.0); LYMPH % 28.6 % (9.0-44.0); LYMPHOCYTE # 1.2 TH/MM3 (1.0-4.8); MEAN CELL VOLUME 109.5 FL (80.0-100.0); MEAN CORPUSCULAR HEMOGLOBIN 38.4 PG (27.0-34.0); NEUT % 62.8 % (16.0-70.0); PLATELET COUNT 31 TH/MM3 (150-450); RED BLOOD COUNT 2.05 MIL/MM3 (4.00-5.30); RED CELL DISTRIBUTION WIDTH 14.8 % (11.6-17.2); WHITE BLOOD COUNT 4.3 TH/MM3 (4.0-11.0)
[2016-11-28 08:14] LABS: HEMO FLAGS AUTO DIFF
[2016-11-28 08:32] LABS: ALT (GPT) 22 U/L (10-53); ANION GAP 9 MEQ/L (5-15); AST (GOT) 97 U/L (15-37); BICARBONATE 26.4 MEQ/L (21.0-32.0); BLOOD UREA NITROGEN 3 MG/DL (7-18); CHLORIDE 105 MEQ/L (98-107); GLOMERULAR FILTRATION RATE 111 ML/MIN (>89); POTASSIUM 3.3 MEQ/L (3.5-5.1); SODIUM (NA) 140 MEQ/L (136-145)
[2016-11-28 08:35] LABS: ALKALINE PHOSPHATASE 120 U/L (45-117); TOTAL BILIRUBIN ADULT 11.5 MG/DL (0.2-1.0)
[2016-11-28] MEDS: SODIUM CHLORIDE 0.9% FLUSH 10 ML FLUSH IV FLUSH SCH (08:35)
[2016-11-28] MEDS: DOCUSATE SODIUM 50 MG/SENNA 8.6 MG TAB PO SCH (08:36)
[2016-11-28 08:47] LABS: ACANTHOCYTES 1+ (NORMAL); BURR CELLS 1+ (NORMAL); PLATELET ESTIMATE SMEAR LOW (NORMAL); PLATELET MORPHOLOGY NORMAL (NORMAL); SCAN/DIFF AUTO DIFF CONFIRMED
[2016-11-28] MEDS ORDERED: AZITHROMYCIN 250 MG TAB PO SCH (09:00)
[2016-11-28] MEDS: LORazepam 1 MG TAB PO PRN (11:05)
[2016-11-28 12:00] VITALS: BP 97/54; PULSE 93; RESP 18; TEMP 98.5; O2SAT 92
--- NOTE | 2016-11-28 13:39 | HHI.PR ---
Addendum to Inpatient Note Addendum Reason: Additional Documentation Additional Information DCF was called due to concern for well being of patient's grandson due to pts unstable mood and alcohol use. I spoke with an agent this morning who spoke with the patient and preformed a home visit. She reports that the child is doing well and the home environment is safe. Pts grandson is currently with the patients , who is aware that the patient is unstable and has a problem with alcohol abuse. He plans on taking the grandchild with him when he travels out of town and is looking into moving to [place]. There were no additional concerns raised by the DCF agent. (Boni Jolly MD R3) Boni Jolly MD R3 Nov 28, 2016 13:39 Christin Recinos MD Nov 28, 2016 14:36
--- NOTE | 2016-11-28 14:42 | HHI.FPPN ---
Subjective Remarks Patient seen and examined this morning. States she is currently still anxious however low but less anxious than yesterday. Continues to endorse abdominal pain. No nausea, vomiting, fever, chills, change in bowel or bladder habits. Does not endorse, homicidal or suicidal ideation. No chest pain, shortness of breath, palpitations. (Pablo Baez MD R1) Objective Vitals Vital Signs Date Time Temp Pulse Resp B/P (MAP) Pulse Ox O2 Delivery O2 Flow Rate FiO2 11/28/16 12:00 98.5 93 18 97/54 (68) 92 11/28/16 08:10 92 11/28/16 08:00 98.5 87 16 114/58 (76) 97 11/28/16 04:00 98.8 88 20 106/60 (75) 97 11/28/16 01:35 94 Nasal Cannula 2.00 11/28/16 00:00 99.0 92 20 112/64 (80) 96 11/27/16 20:00 98.0 122 20 134/66 (88) 98 11/27/16 20:00 118 11/27/16 16:00 99.8 120 20 128/56 (80) 96 I/O 11/27/16 11/27/16 11/27/16 11/28/16 11/28/16 11/28/16 07:00 15:00 23:00 07:00 15:00 23:00 Intake Total 480 ml 700 ml 525 ml Balance 480 ml 700 ml 525 ml Intake Oral 480 ml 600 ml IV Total 100 ml 525 ml # Voids 3 4 # Bowel Movements 3 0 (Pablo Baez MD R1) Result Diagram: 11/28/16 0705 11/28/16 0705 Imaging Last 48 hours Impressions Chest X-Ray 11/27/16 0000 Signed Impressions: Service Date/Time: Sunday, November 27, 2016 11:10 - CONCLUSION: Bilateral infiltrates and effusions, right worse than left Michoacano Mcmullen MD Objective Remarks GENERAL: This is a well-nourished, well-developed patient, laying in bed SKIN: No rashes or lesions. Ecchymosis on right thorax, right shoulder. Cool and dry. HEAD: Atraumatic. Normocephalic. No temporal or scalp tenderness. EYES: Pupils equal round and reactive. Extraocular motions intact. No scleral icterus. No injection or drainage. ENT: Nose without bleeding, purulent drainage or septal hematoma. Throat without erythema, tonsillar hypertrophy or exudate. Uvula midline. Airway patent. NECK: Trachea midline. No JVD or lymphadenopathy. Supple, nontender, no meningeal signs. CARDIOVASCULAR: Regular rhythm, tachycardic without murmurs, gallops, or rubs. RESPIRATORY: Clear to auscultation. Breath sounds equal bilaterally. No wheezes , rales, or rhonchi. GASTROINTESTINAL: Abdomen soft, tender in all quadrants, mildly distended, guarding. MUSCULOSKELETAL: Extremities without clubbing, cyanosis, or edema. No joint tenderness, effusion, or edema noted. No calf tenderness. NEUROLOGICAL: Awake and alert. Motor and sensory grossly within normal limits. Five out of 5 muscle strength in all muscle groups. Normal speech. (Pablo Baez MD R1) A/P Assessment and Plan 41 -year-old female with past history of cirrhosis, ITP, anxiety, depression who attempted suicide with diphenhydramine and acetaminophen. Started on acetylcysteine in ED. Acetaminophen level less than 2.0. Abdominal pain. Reports paracentesis within the past week. Afebrile. (Pablo Baez MD R1) Attending Attestation Patient seen and examined. Case reviewed and discussed Agree with plan of care as discussed with me and documented in the resident note. (Christin Recinos MD) Problem List: (1) Overdose ICD Codes: T50.901A - Poisoning by unspecified drugs, medicaments and biological substances, accidental (unintentional), initial encounter Status: Acute Plan: Ingested unknown quantity of diphenhydramine last night and unknown amount of acetaminophen this morning. Started on by mouth N-acetylcysteine in ED. Acetaminophen level less than 2.0. Spoke with poison control, agreed with switching by mouth regimen to IV and continuing for the 20 hour regimen. Currently completed 20 hour regimen. * 20 hour N-acetylcysteine regimen, 50 mg/kg for 4 hours, 100 mg per kilogram for 16 hours completed * AST and INR without significant increase * Acetaminophen levels all undetectable * Poison control called today, requested another INR, follow up * Abdominal pain was possibly due to by mouth regimen, switched to IV regimen, okayed by poison control (2) Suicidal ideation ICD Codes: R45.851 - Suicidal ideation Status: Acute Plan: Attempted suicide yesterday. Does not endorse suicidal ideation at time of interview. * Psychiatric consult * Close observation with sitter * Likely discharge to med psych (3) Chronic ITP (idiopathic thrombocytopenia) ICD Codes: D69.3 - Immune thrombocytopenic purpura Plan: Chronic ITP, platelets 48 admission, around baseline. 31 today * Continue to monitor * Observe for symptoms and signs (4) Alcohol abuse ICD Codes: F10.10 - Alcohol abuse, uncomplicated Status: Acute Plan: Drinks 2 four locos every night. * [facility] protocol * Alcohol cessation counseling (5) Hypokalemia ICD Codes: E87.6 - Hypokalemia Status: Acute Plan: Potassium 2.9 at time of admission * Given 40 mEq by mouth and 40 mEq IV in ED * EKG showed sinus tachycardia * Currently mildly hypokalemic * Monitor and correct as needed (6) Cirrhosis of liver ICD Codes: K74.60 - Unspecified cirrhosis of liver Status: Chronic Plan: History of liver cirrhosis with ascites. Currently has abdominal pain. Afebrile. Normal white blood cell count. * Ultrasound showed hepatomegaly and moderate ascites * Reports recent paracentesis, states she usually gets them once a month * Monitor for ascites buildup * Diagnostic paracentesis (7) Anemia ICD Codes: D64.9 - Anemia Status: Chronic Plan: Chronic anemia. Hemoglobin 9.8 admission * Currently at baseline * Continue to monitor and transfuse as necessary (8) FEN Plan: Fluids * Fluids by mouth Electrolytes * Hypokalemia, currently being corrected * Monitor and correct as needed Nutrition * Liquid diet Prophylaxis * Currently thrombocytopenic (Pablo Baez MD R1) Problem Qualifiers (1) Overdose: Qualified Codes: T50.902A - Poisoning by unspecified drugs, medicaments and biological substances, intentional self-harm, initial encounter Pablo Baez MD R1 Nov 28, 2016 14:42 Christin Recinos MD Dec 06, 2016 09:21
--- NOTE | 2016-11-28 14:46 | HHI.DS ---
Discharge Summary Admission Date Nov 26, 2016 at 16:44 Admitting Diagnosis Tylenol overdose, alcohol abuse, hypokalemia, (1) Overdose Diagnosis: Principal Plan: Ingested unknown quantity of diphenhydramine last night and unknown amount of acetaminophen this morning. Started on by mouth N-acetylcysteine in ED. Acetaminophen level less than 2.0. Spoke with poison control, agreed with switching by mouth regimen to IV and continuing for the 20 hour regimen. * 20 hour N-acetylcysteine regimen, 50 mg/kg for 4 hours, 100 mg per Cotrim for 16 hours * Follow-up CMP and INR 2 hours prior to end of regimen * Trend acetaminophen levels * Trend CMP * Abdominal pain possibly due to by mouth regimen, switched to IV regimen ICD Codes: T50.901A - Poisoning by unspecified drugs, medicaments and biological substances, accidental (unintentional), initial encounter Status: Acute (2) Suicidal ideation Diagnosis: Principal Plan: Attempted suicide last night and this morning. Does not fully endorse suicidal ideation at time of interview. * Psychiatric consult * Close observation * Not fully open to depression medication at this time, will need to discuss the future ICD Codes: R45.851 - Suicidal ideation Status: Acute (3) Chronic ITP (idiopathic thrombocytopenia) Diagnosis: Secondary Plan: Chronic ITP, platelets 48 admission, around baseline. * Continue to monitor * Observe for symptoms and signs ICD Codes: D69.3 - Immune thrombocytopenic purpura (4) Alcohol abuse Diagnosis: Secondary Plan: Drinks 2 four locos every night. * [facility] protocol * Alcohol cessation counseling ICD Codes: F10.10 - Alcohol abuse, uncomplicated Status: Acute (5) Hypokalemia Diagnosis: Secondary Plan: Potassium 2.9 at time of admission * Given 40 mEq by mouth and 40 mEq IV in ED * Monitor and correct as needed ICD Codes: E87.6 - Hypokalemia Status: Acute (6) Cirrhosis of liver Diagnosis: Secondary Plan: History of liver cirrhosis with ascites. Currently has abdominal pain. Afebrile. Normal white blood cell count. * Follow-up ultrasound * Reports recent paracentesis, states she doesn't need one now and doesn't know how often she gets them * Monitor for ascites buildup ICD Codes: K74.60 - Unspecified cirrhosis of liver Status: Chronic (7) Anemia Diagnosis: Secondary Plan: Chronic anemia. Hemoglobin 9.8 admission * Currently at baseline * Continue to monitor and transfuse as necessary ICD Codes: D64.9 - Anemia Status: Chronic (8) FEN Plan: Fluids * Fluids by mouth Electrolytes * Hypokalemia, currently being corrected * Monitor and correct as needed Nutrition * Liquid diet Prophylaxis * Currently thrombocytopenic Brief History Patient is a 41-year-old female with past history of anxiety, depression, ITP, cirrhosis with ascites who presented [facility] following attempted suicide. Patient states she's been depressed for months. She is especially upset that her continually leaves for work, he is a lingo cleaner who often has to leave home for extended amounts of time. Last night she was feeling especially unappreciated and decided to "fall sleep and not wake up again," so she took "many sleeping pills." When she woke up today she continued to feel unappreciated and was upset that her grandson did not call 911 for her earlier, so she decided to lock herself in her room and ingest "a bunch of Tylenol." She is unsure of how many Tylenol or sleeping pill she had taken. Her grandson was very upset, and called his father and then called 911. She states she then locked herself in her room because she was disappointed that she upset her family. Recently she notes early awakening, lack of interest in things she used to enjoy, feelings of guilt, decreased energy, confusion, increased appetite, no psychomotor retardation. Doesn't currently want to hurt anyone else, and is too upset to talk about hurting herself. She currently has abdominal pain. No nausea, vomiting, fever, chills, chest pain, shortness of breath, change in bowel or bladder habits. CBC/BMP: 11/28/16 0705 11/28/16 0705 Significant Findings Laboratory Tests Test 11/26/16 14:30 11/26/16 16:00 11/26/16 16:45 11/26/16 19:50 Red Blood Count 2.59 MIL/MM3 (4.00-5.30) Hemoglobin 9.8 GM/DL (11.6-15.3) Hematocrit 27.7 % (35.0-46.0) Mean Corpuscular Volume 106.7 FL (80.0-100.0) Mean Corpuscular Hemoglobin 37.8 PG (27.0-34.0) Platelet Count 48 TH/MM3 (150-450) Platelet Estimate LOW (NORMAL) Crenated Cell 1+ (NORMAL) Acanthocytes 1+ (NORMAL) Prothrombin Time 20.7 SEC (9.8-11.6) 30.8 SEC (9.8-11.6) Activated Partial Thromboplast Time 33.3 SEC (24.3-30.1) Blood Urea Nitrogen 3 MG/DL (7-18) 4 MG/DL (7-18) Random Glucose 134 MG/DL (74-106) 114 MG/DL (74-106) Total Protein 6.3 GM/DL (6.4-8.2) 5.4 GM/DL (6.4-8.2) Albumin 2.8 GM/DL (3.4-5.0) 2.2 GM/DL (3.4-5.0) Calcium Level 7.6 MG/DL (8.5-10.1) 7.1 MG/DL (8.5-10.1) Alkaline Phosphatase 160 U/L (45-117) 123 U/L (45-117) Aspartate Amino Transf (AST/SGOT) 162 U/L (15-37) 133 U/L (15-37) Total Bilirubin 11.9 MG/DL (0.2-1.0) 10.8 MG/DL (0.2-1.0) Potassium Level 2.9 MEQ/L (3.5-5.1) 3.3 MEQ/L (3.5-5.1) Salicylates Level LESS THAN 1.7 MG/DL Acetaminophen Level LESS THAN 2.0 MCG/ML LESS THAN 2.0 MCG/ML Ethyl Alcohol Level 206 MG/DL (0-5) Urine Color DARK-ORANGE (YELLW/STRAW) Urine Turbidity HAZY (CLEAR) Urine Protein 30 mg/dL (NEG-TRACE) Urine Bilirubin MOD (NEG) Urine Urobilinogen GREATER THAN 12.0 MG/DL Urine Mucus MANY /lpf (OCC) Urine Benzodiazepines Screen POS (NEG) Lactic Acid Level 5.0 mmol/L (0.4-2.0) 4.8 mmol/L (0.4-2.0) Ammonia 79 MCMOL/L (11-32) Creatinine 0.42 MG/DL (0.50-1.00) Protein Corrected Calcium 8.0 MG/DL (8.5-10.1) Test 11/26/16 19:56 11/27/16 00:12 11/27/16 04:00 11/27/16 07:43 Arterial Blood pH 7.48 (7.380-7.420) Arterial Blood Partial Pressure CO2 32 mmHg (38-42) Arterial Blood Oxygen Content 9.9 Vol % (12.0-20.0) Blood Gas Hemoglobin 7.8 G/DL (12.0-16.0) Prothrombin Time 26.3 SEC (9.8-11.6) 26.5 SEC (9.8-11.6) Blood Urea Nitrogen 4 MG/DL (7-18) 4 MG/DL (7-18) 3 MG/DL (7-18) Creatinine 0.48 MG/DL (0.50-1.00) 0.43 MG/DL (0.50-1.00) 0.42 MG/DL (0.50-1.00) Random Glucose 160 MG/DL (74-106) 122 MG/DL (74-106) Total Protein 5.2 GM/DL (6.4-8.2) 5.3 GM/DL (6.4-8.2) 5.3 GM/DL (6.4-8.2) Albumin 2.2 GM/DL (3.4-5.0) 2.2 GM/DL (3.4-5.0) 2.2 GM/DL (3.4-5.0) Calcium Level 7.0 MG/DL (8.5-10.1) 6.9 MG/DL (8.5-10.1) 7.4 MG/DL (8.5-10.1) Phosphorus Level 2.2 MG/DL (2.5-4.9) Alkaline Phosphatase 118 U/L (45-117) 121 U/L (45-117) 123 U/L (45-117) Aspartate Amino Transf (AST/SGOT) 127 U/L (15-37) 130 U/L (15-37) 127 U/L (15-37) Total Bilirubin 10.3 MG/DL (0.2-1.0) 11.2 MG/DL (0.2-1.0) 11.6 MG/DL (0.2-1.0) Potassium Level 3.2 MEQ/L (3.5-5.1) 3.1 MEQ/L (3.5-5.1) 3.4 MEQ/L (3.5-5.1) Protein Corrected Calcium 8.0 MG/DL (8.5-10.1) 7.8 MG/DL (8.5-10.1) 8.4 MG/DL (8.5-10.1) Acetaminophen Level LESS THAN 2.0 MCG/ML LESS THAN 2.0 MCG/ML LESS THAN 2.0 MCG/ML Test 11/27/16 07:45 11/27/16 08:25 11/27/16 16:24 11/27/16 21:09 Red Blood Count 2.06 MIL/MM3 (4.00-5.30) Hemoglobin 7.9 GM/DL (11.6-15.3) 7.5 GM/DL (11.6-15.3) Hematocrit 22.4 % (35.0-46.0) 21.3 % (35.0-46.0) Mean Corpuscular Volume 108.6 FL (80.0-100.0) Mean Corpuscular Hemoglobin 38.3 PG (27.0-34.0) Platelet Count 30 TH/MM3 (150-450) Platelet Estimate LOW (NORMAL) Mil[place] Cells 1+ (NORMAL) Acanthocytes 1+ (NORMAL) Prothrombin Time 27.4 SEC (9.8-11.6) 27.0 SEC (9.8-11.6) Lactic Acid Level 3.3 mmol/L (0.4-2.0) 2.2 mmol/L (0.4-2.0) Blood Urea Nitrogen 3 MG/DL (7-18) Random Glucose 143 MG/DL (74-106) Total Protein 5.1 GM/DL (6.4-8.2) Albumin 2.2 GM/DL (3.4-5.0) Calcium Level 7.3 MG/DL (8.5-10.1) Alkaline Phosphatase 122 U/L (45-117) Aspartate Amino Transf (AST/SGOT) 112 U/L (15-37) Total Bilirubin 11.3 MG/DL (0.2-1.0) Potassium Level 3.4 MEQ/L (3.5-5.1) Protein Corrected Calcium 8.4 MG/DL (8.5-10.1) Test 11/27/16 23:15 11/28/16 07:05 Red Blood Count 2.05 MIL/MM3 (4.00-5.30) Hemoglobin 7.9 GM/DL (11.6-15.3) Hematocrit 22.5 % (35.0-46.0) Mean Corpuscular Volume 109.5 FL (80.0-100.0) Mean Corpuscular Hemoglobin 38.4 PG (27.0-34.0) Platelet Count 31 TH/MM3 (150-450) Platelet Estimate LOW (NORMAL) Milam Cells 1+ (NORMAL) Acanthocytes 1+ (NORMAL) Blood Urea Nitrogen 3 MG/DL (7-18) Total Protein 5.1 GM/DL (6.4-8.2) Albumin 2.1 GM/DL (3.4-5.0) Calcium Level 7.5 MG/DL (8.5-10.1) Alkaline Phosphatase 120 U/L (45-117) Aspartate Amino Transf (AST/SGOT) 97 U/L (15-37) Total Bilirubin 11.5 MG/DL (0.2-1.0) Potassium Level 3.3 MEQ/L (3.5-5.1) Hospital Course Patient admitted 11/26 following suicide attempt with acetaminophen and Benadryl. Poison control was contacted and patient completed the 20 hour regimen for acetaminophen antidote. Patient complained of abdominal pain, however had no further signs of SBP. Patient was stable and was transferred to the medicine psych floor. While on the med psych floor she continued to complain of abdominal pain, paracentesis was performed diagnostically and therapeutically, no SBP. Resolution of abdominal pain following this procedure. Patient had several days of diarrhea on hospital, resolved prior to discharge. Pt Condition on Discharge: Stable Discharge Disposition: Discharge Home Discharge Instructions Follow up Referrals: Gastroenterology - 1 Week PCP Follow-up - 1 Week Psychiatry Adult - 1 Week Continued Medications: Acetaminophen (Mapap) 500 Mg Cap 500 MG PO Q4-6H PRN for PAIN, CAP 0 Refills Diphenhydramine (Diphenhydramine) 25 Mg Tab 50 MG PO HS PRN for ALLERGIES, TAB 0 Refills Furosemide (Furosemide) 80 Mg Tab 80 MG PO BID, #60 TAB 0 Refills Furosemide (Furosemide) 20 Mg Tab 20 MG PO DAILY, #30 TAB 0 Refills Multiple Vitamins W/ Minerals (Thera M Plus) 1 Tab 1 TAB PO DAILY for vit, #30 TAB 0 Refills Pantoprazole (Pantoprazole) 40 Mg Tab 40 MG PO DAILY for GERD, #30 TAB 0 Refills Thiamine (B-1) 250 Mg Tab 250 MG PO DAILY for Nutritional Supplement, TAB 0 Refills Pablo Baez MD R1 Nov 28, 2016 14:46
--- NOTE | 2016-11-28 14:56 | HHI.DCPOC ---
Discharge Care Plan Goals to Promote Your Health * To prevent worsening of your condition and complications * To maintain your health at the optimal level Directions to Meet Your Goals Take your medications as prescribed Follow your dietary instruction Follow activity as directed Keep your appointments as scheduled Take your immunizations and boosters as scheduled If your symptoms worsen call your PCP, if no PCP go to Urgent Care Center or Emergency Room Smoking is Dangerous to Your Health. Avoid second hand smoke Call the 24-hour hour crisis hotline for domestic abuse at Pablo Baez MD R1 Nov 28, 2016 14:56 Christin Recinos MD Dec 06, 2016 09:21
[2016-11-28] MEDS: cefTRIAXone INJ 1,000 MG in SODIUM CHLORIDE 0.9% INJ 100 ML IV SCH (15:07)
--- NOTE | 2016-11-28 15:41 | HHI.PYPN ---
Subjective Remarks Patient seen today for psychiatric reevaluation, reports continues depression, sense of hopelessness, guiltiness, she says that she feels she is a burden for her family. Patient stated that she cannot avoid the ruminating thoughts of wanting to be . At this moment patient denies suicidal intentions, contracted for safety in the hospital. She reports insomnia, continuous anxiety , hopeless, helplessness. She is oriented 3, no fluctuation of consciousness, and attention deficit. Review of Systems Other No somatic complaints Objective Alert: Yes [place]: Person, Place, Date Mood: Depressed Affect: Restricted Memory Intact: Immediate, Recent, Remote Hallucinations: Other (no hallucinations) Delusions: No Delusion Type: Other (no delusions elicited) Suicidal: Ideation (suicidal thoughts, no plan) Homicidal: Ideation (no HI) Insight/Judgment Poor Labs Test 11/27/16 16:24 11/27/16 21:09 11/27/16 23:15 11/28/16 07:05 Prothrombin Time 27.0 SEC Prothromb Time International Ratio 2.4 RATIO Blood Urea Nitrogen 3 MG/DL 3 MG/DL Creatinine 0.56 MG/DL 0.60 MG/DL Random Glucose 143 MG/DL 84 MG/DL Total Protein 5.1 GM/DL 5.1 GM/DL Albumin 2.2 GM/DL 2.1 GM/DL Calcium Level 7.3 MG/DL 7.5 MG/DL Magnesium Level 1.5 MG/DL Alkaline Phosphatase 122 U/L 120 U/L Aspartate Amino Transf (AST/SGOT) 112 U/L 97 U/L Alanine Aminotransferase (ALT/SGPT) 25 U/L 22 U/L Total Bilirubin 11.3 MG/DL 11.5 MG/DL Sodium Level 138 MEQ/L 140 MEQ/L Potassium Level 3.4 MEQ/L 3.3 MEQ/L Chloride Level 104 MEQ/L 105 MEQ/L Carbon Dioxide Level 25.8 MEQ/L 26.4 MEQ/L Anion Gap 8 MEQ/L 9 MEQ/L Estimat Glomerular Filtration Rate 121 ML/MIN 111 ML/MIN Lactic Acid Level 2.2 mmol/L 1.3 mmol/L Protein Corrected Calcium 8.4 MG/DL Hemoglobin 7.5 GM/DL 7.9 GM/DL Hematocrit 21.3 % 22.5 % White Blood Count 4.3 TH/MM3 Red Blood Count 2.05 MIL/MM3 Mean Corpuscular Volume 109.5 FL Mean Corpuscular Hemoglobin 38.4 PG Mean Corpuscular Hemoglobin Concent 35.0 % Red Cell Distribution Width 14.8 % Platelet Count 31 TH/MM3 Mean Platelet Volume 7.6 FL Neutrophils (%) (Auto) 62.8 % Lymphocytes (%) (Auto) 28.6 % Monocytes (%) (Auto) 6.0 % Eosinophils (%) (Auto) 2.1 % Basophils (%) (Auto) 0.5 % Neutrophils # (Auto) 2.7 TH/MM3 Lymphocytes # (Auto) 1.2 TH/MM3 Monocytes # (Auto) 0.3 TH/MM3 Eosinophils # (Auto) 0.1 TH/MM3 Basophils # (Auto) 0.0 TH/MM3 CBC Comment AUTO DIFF Differential Comment AUTO DIFF CONFIRMED Platelet Estimate LOW Platelet Morphology Comment NORMAL Jayne Cells 1+ Acanthocytes 1+ Date/Time Source Procedure Growth Status 11/27/16 23:15 Blood Peripheral Aerobic Blood Culture - Preliminary NO GROWTH IN 1 DAY Resulted 11/27/16 23:15 Blood Peripheral Anaerobic Blood Culture - Preliminary NO GROWTH IN 1 DAY Resulted 11/28/16 01:20 Stool Stool Stool Occult Blood (DARREN) - Final HEMOCCULT NEGATIVE Complete 11/28/16 01:20 Urine Clean Catch Legionella Antigen - Final PRESUMPTIVE NEGATIVE FOR LEGIONELLA P... Complete 11/28/16 01:20 Urine Clean Catch Streptococcus pneumoniae Antigen (M - Final PRESUMPTIVE NEGATIVE FOR STREPTOCOCCU... Complete Vitals/IOs Vital Signs Date Time Temp Pulse Resp B/P (MAP) Pulse Ox O2 Delivery O2 Flow Rate FiO2 11/28/16 12:00 98.5 93 18 97/54 (68) 92 11/28/16 01:35 Nasal Cannula 2.00 Assessment & Plan Problem List: (1) Major depressive disorder, recurrent ICD Codes: F33.9 - Major depressive disorder, recurrent, unspecified (2) Major depressive disorder, recurrent ICD Codes: F33.9 - Major depressive disorder, recurrent, unspecified Assessment & Plan: Patient continues to be acutely depressed, will start Trazodoen 100 mg at bedtime to help with depression and insomnia. Assessment & Plan Estimated LOS: days Justification for Cont. Inpt. Patient needs psychiatric admission for stabilization and safety. Cooper Richard MD Nov 28, 2016 15:41
--- NOTE | 2016-11-28 18:14 | ECHRPT ---
Indication: HEART FAILURE CONCLUSIONS The left ventricular systolic function is normal with an estimated ejection fraction in the range of 55-60%. There is trace tricuspid valve regurgitation. BP: 106 / 60 HR: 88 Rhythm: Sinus MEASUREMENTS (Male / Female) Normal Values Technical Quality:Fair 2D ECHO LV Diastolic Diameter PLAX 4.5 cm 4.2 - 5.9 / 3.9 - 5.3 cm LV Systolic Diameter PLAX 3.3 cm IVS Diastolic Thickness 0.9 cm 0.6 - 1.0 / 0.6 - 0.9 cm LVPW Diastolic Thickness 0.9 cm 0.6 - 1.0 / 0.6 - 0.9 cm LV Relative Wall Thickness 0.4 LVOT Diameter 2.0 cm Aortic Root Diameter 2.8 cm LA Systolic Diameter LX 2.8 cm 3.0 - 4.0 / 2.7 - 3.8 cm M-MODE AV Cusp Separation MM 1.8 cm DOPPLER AV Peak Velocity 199.0 cm/s AV Peak Gradient 15.8 mmHg AV Mean Gradient 8.0 mmHg AV Velocity Time Integral 33.2 cm LVOT Peak Velocity 145.0 cm/s LVOT Peak Gradient 8.4 mmHg LVOT Velocity Time Integral 24.1 cm LVOT Cardiac Index 3758.6 cm/minm AV Area Cont Eq vti 2.3 cm AV Area Cont Eq pk 2.3 cm Mitral E Point Velocity 101.0 cm/s Mitral A Point Velocity 123.0 cm/s Mitral E to A Ratio 0.8 LV E' Lateral Velocity 15.8 cm/s Mitral E to LV E' Lateral Ratio 6.4 LV E' Septal Velocity 8.5 cm/s Mitral E to LV E' Septal Ratio 11.9 TR Peak Velocity 145.0 cm/s TR Peak Gradient 8.4 mmHg PV Peak Velocity 97.0 cm/s PV Peak Gradient 3.8 mmHg FINDINGS LEFT VENTRICLE Normal left ventricular size. Wall thickness is normal. The left ventricular systolic function is normal with an estimated ejection fraction in the range of 55-60%. RIGHT VENTRICLE The right ventricular size is normal. The right ventricular systoilc function is normal. LEFT ATRIUM The left atrial size is normal. RIGHT ATRIUM The right atrial size is normal. ATRIAL SEPTUM The interatrial septum not well visualized. AORTA The aortic root and proximal ascending aorta are not well visualized. MITRAL VALVE Structurally normal mitral valve. No mitral valve regurgitation. No mitral valve stenosis. AORTIC VALVE No aortic valve regurgitation. No aortic valve stenosis. TRICUSPID VALVE There is trace tricuspid valve regurgitation. Normal estimated pulmonary pressures. Structurally normal tricuspid valve. PULMONARY VALVE The pulmonary valve is not well visualized. PERICARDIUM No pericardial effusion. Adiel Zamora DO (Electronically Signed) Final Date:28 November 2016 18:12
[2016-11-28 20:22] LABS: INTERNATIONAL NORMALIZED RATIO 2.3 RATIO; PROTHROMBIN TIME - PATIENT 26.3 SEC (9.8-11.6)
[2016-11-28] MEDS ORDERED: traZODone HCL 100 MG TAB PO SCH (21:00)
== END 2016-11-28 15:45 | DRG 918 ==
LOC: NEPE 14:28 → NEDA 16:44 → N07B 21:43
PROVIDERS: ADMIT Family Medicine; ATTEND Family Medicine
DX: T45.0X2A Poisoning by antiallergic and antiemetic drugs, intentional self-harm, initial encounter (principal); D69.3 Immune thrombocytopenic purpura; E87.2 Acidosis; R18.8 Other ascites; F33.9 Major depressive disorder, recurrent, unspecified; K74.60 Unspecified cirrhosis of liver; D64.9 Anemia, unspecified; E11.9 Type 2 diabetes mellitus without complications; E87.6 Hypokalemia; T39.1X2A Poisoning by 4-Aminophenol derivatives, intentional self-harm, initial encounter; R00.0 Tachycardia, unspecified; G47.00 Insomnia, unspecified; F41.9 Anxiety disorder, unspecified; F10.20 Alcohol dependence, uncomplicated; Y90.7 Blood alcohol level of 200-239 mg/100 ml; G89.29 Other chronic pain
CPT/HCPCS: 36600; 71010; 71020; 76700; 80053; 80307; 81001; 82140; 82272; 82550; 82552; 82805; 82948; 83605; 83690; 83735; 84100; 84484; 84702; 85007; 85014; 85018; 85025; 85027; 85610; 85730; 87040; 87449; 93005; 93306; 96365; J0132; J0696; J2060; J2405; J3480; J7030; J7060; J7070; P9612

== ENCOUNTER 2016-11-28 16:00 | Inpatient (IN) | payer SELFPAY ==
[~2016-11-28] VITALS: Ht 160 cm; Wt 62.8 kg
[~2016-11-28 16:00] MED LIST changes: +DIPH25TA2 PO; -GNP100TA3 PO; +MAPA500C PO; -OXYC-392 PO
[2016-11-28 16:43] VITALS: BP 108/64; PULSE 95; RESP 18; TEMP 99.3; O2SAT 97
[2016-11-28] MEDS ORDERED: ACETAMINOPHEN 325 MG TAB PO PRN (17:30)
[2016-11-28] MEDS: NICOTINE 21 MG/24 HR PATCH T-DERMAL SCH (17:30)
[2016-11-28] MEDS ORDERED: ACETAMINOPHEN 500 MG CPLT PO PRN (17:30)
[2016-11-28] MEDS ORDERED: ALUMINUM/MAGNESIUM/SIMETH 30 ML CUP PO PRN (17:30)
[2016-11-28] MEDS ORDERED: MAGNESIUM HYDROXIDE SUSP 30 ML CUP PO PRN (17:30)
[2016-11-28 20:24] VITALS: BP 100/49; PULSE 91; RESP 15; TEMP 98.8; O2SAT 96
[2016-11-28] MEDS: PENTOXIFYLLINE 400 MG CONTROLLED RELEASE TAB PO SCH (20:40)
[2016-11-28] MEDS: SPIRONOLACTONE 50 MG TAB PO SCH (20:40)
[2016-11-28] MEDS: traZODone HCL 100 MG TAB PO SCH (20:40)
[2016-11-28 21:10] VITALS: BP 101/49; PULSE 91; RESP 15; TEMP 98.8; O2SAT 96
[2016-11-29 05:06] VITALS: BP 96/52; PULSE 91; RESP 15; TEMP 98.7; O2SAT 91
[2016-11-29] MEDS: PENTOXIFYLLINE 400 MG CONTROLLED RELEASE TAB PO SCH (08:15)
[2016-11-29] MEDS: SPIRONOLACTONE 50 MG TAB PO SCH (08:15)
[2016-11-29] MEDS: NICOTINE 21 MG/24 HR PATCH T-DERMAL SCH (08:15)
--- NOTE | 2016-11-29 13:32 | PD.TTN ---
Patient Problems 1. Discharge planning 2. Medication compliance 3. Knowledge deficit 4. Lack of coping skills Progress Toward Goals Provider Present: Dr. Park Carlisle Provider Input: Patient is a new admission, antidepression medication has been review with patient for inpatient treatment Nurse(s) Present: YUAN Fuentes Nurse(s) Input: Patient is a new admission Psychiatric Counselors Present: ROSITA Barragan Psych Therapist Input: Patient will be assess for outpatient service/treatment Group Spec/RT/OT/TOWNSEND Present: Dimitris Hobson, OT Group Spec/RT/OT/TOWNSEND Input: New patient, patient at this time is refusing to participate with inpatient service Discharge Plan SMA, Care Coordination Program Documentation Scribe: ROSITA Barragan Sandra LMHC Nov 29, 2016 13:32
[2016-11-29] MEDS ORDERED: NALOXONE HCL 0.4 MG/ML AMP IV PUSH PRN (14:15)
[2016-11-29] MEDS ORDERED: IBUPROFEN 400 MG TAB PO PRN ×2 (14:15→14:30)
[2016-11-29] MEDS: CITALOPRAM HYDROBROMIDE 20 MG TAB PO SCH (15:00)
--- NOTE | 2016-11-29 15:53 | PD.CONS ---
[facility] Service Family Medicine Consult Requested By Primary Care Physician Unknown History of Present Illness Patient is a 41-year-old female with past history of anxiety, depression, ITP, sources with ascites who was transferred to [facility] from our service. Initial history of present illness below. While in medical care agent was fully treated for possible acetaminophen overdose. Psychiatry was contacted and suggested she be transferred to [facility]. Patient also has chronic abdominal pain which has been present for about 2 months. She states it's a constant pain in her abdomen which is described as dull and tense, and was partially relieved upon her last paracentesis weeks ago. She notes she is as paracentesis once a month. No nausea , vomiting, fever, chills. States she is currently having some soft brown loose stools with no red streaks or black specks. Previously being treated for possible community acquired pneumonia. History of present illness on admission prior to transfer to [facility] (11/26) Patient is a 41-year-old female with past history of anxiety, depression, ITP, cirrhosis with ascites who presented [facility] following attempted suicide. Patient states she's been depressed for months. She is especially upset that her continually leaves for work, he is a [employer] bath attendant who often has to leave home for extended amounts of time. Last night she was feeling especially unappreciated and decided to "fall sleep and not wake up again," so she took "many sleeping pills." When she woke up today she continued to feel unappreciated and was upset that her grandson did not call 911 for her earlier, so she decided to lock herself in her room and ingest "a bunch of Tylenol." She is unsure of how many Tylenol or sleeping pill she had taken. Her grandson was very upset, and called his father and then called 911. She states she then locked herself in her room because she was disappointed that she upset her family. Recently she notes early awakening, lack of interest in things she used to enjoy, feelings of guilt, decreased energy, confusion, increased appetite, no psychomotor retardation. Doesn't currently want to hurt anyone else, and is too upset to talk about hurting herself. She currently has abdominal pain. No nausea, vomiting, fever, chills, chest pain, shortness of breath, change in bowel or bladder habits. (Pablo Baez MD R1) Review of Systems Constitutional: COMPLAINS OF: Fatigue, Change in appetite, DENIES: Diaphoretic episodes, Fever, Weight gain, Weight loss, Chills, Dizziness Endocrine: DENIES: Heat/cold intolerance, Polydipsia, Polyuria Eyes: DENIES: Blurred vision, Diplopia, Eye pain, Vision loss, Photosensitivity Ears, nose, mouth, throat: DENIES: Tinnitus, Hearing loss, Vertigo, Oral lesions, Throat pain Respiratory: DENIES: Apneas, Cough, Snoring, Wheezing Cardiovascular: DENIES: Chest pain, Palpitations, Syncope Gastrointestinal: COMPLAINS OF: Abdominal pain, Diarrhea, DENIES: Black stools , Bloody stools, Constipation, Nausea, Vomiting Genitourinary: DENIES: Urinary frequency, Dysuria, Nocturia Musculoskeletal: DENIES: Joint pain, Muscle aches, Stiffness Integumentary: DENIES: Abnormal pigmentation, Pruritus Hematologic/lymphatic: COMPLAINS OF: Bruising, DENIES: Lymphadenopathy Immunologic/allergic: DENIES: Eczema, Urticaria Psychiatric: COMPLAINS OF: Anxiety, Depression, DENIES: Confusion, Mood changes , Hallucinations, Suicidal Ideation, Homicidal Ideation (Pablo Baez MD R1) Past Family Social History Past Medical History Unchanged from discharge yesterday, copied from EMR Anxiety Depression ITP DM (she is unsure) Cirrhosis with ascites Past Surgical History 3 c-sections Ex lap with appendectomy Cholecystectomy (Pablo Baez MD R1) Allergies: Coded Allergies: morphine (Unverified Adverse Reaction, Mild, Nausea/Vomiting, 11/26/16) Family History Mom: Ovarian cancer, cardiac stent, in 50s due to "blood in lungs" Dad: Unknown, not involved in life Sister: some sort of gi problems, she is unsure Not close to other siblings Social History Alcohol: drinks two 4 locos a day Tobacco: Never Drugs: Speed in the past, nothing recently (Pablo Baez MD R1) Physical Exam Vital Signs Vital Signs Date Time Temp Pulse Resp B/P (MAP) Pulse Ox O2 Delivery O2 Flow Rate FiO2 11/29/16 05:06 98.7 91 15 96/52 (67) 91 11/28/16 21:10 98.8 91 15 101/49 (66) 96 11/28/16 20:24 98.8 91 15 100/49 (66) 96 11/28/16 16:43 99.3 95 18 108/64 (61) 97 Physical Exam GENERAL: This is a well-nourished, well-developed patient, laying in bed SKIN: No rashes or lesions. Ecchymosis on right thorax, right shoulder. Cool and dry. HEAD: Atraumatic. Normocephalic. No temporal or scalp tenderness. EYES: Pupils equal round and reactive. Extraocular motions intact. No scleral icterus. No injection or drainage. ENT: Nose without bleeding, purulent drainage or septal hematoma. Throat without erythema, tonsillar hypertrophy or exudate. Uvula midline. Airway patent. NECK: Trachea midline. No JVD or lymphadenopathy. Supple, nontender, no meningeal signs. CARDIOVASCULAR: Regular rhythm, tachycardic without murmurs, gallops, or rubs. RESPIRATORY: Clear to auscultation. Breath sounds equal bilaterally. No wheezes , rales, or rhonchi. GASTROINTESTINAL: Abdomen soft, tender in all quadrants, mildly distended, guarding. MUSCULOSKELETAL: Extremities without clubbing, cyanosis, or edema. No joint tenderness, effusion, or edema noted. No calf tenderness. NEUROLOGICAL: Awake and alert. Motor and sensory grossly within normal limits. Five out of 5 muscle strength in all muscle groups. Normal speech. (Pablo Baez MD R1) Assessment and Plan Assessment and Plan 41 -year-old female with past history of cirrhosis, ITP, anxiety, depression who attempted suicide with diphenhydramine and acetaminophen 11/26. Completed Acetaminophen treatment 11/27. Abdominal pain, diarrhea. Reports paracentesis a couple weeks ago, usually treated once a month. Possible CAP (Pablo Baez MD R1) Attending Attestation Patient seen and examined 11/29/16. Case reviewed and discussed Please refer to resident H&P for further details regarding HPI, ROS, PMH, SUurgHx, FH and SocHx In summary, patient is a 41yoF with a history of cirrhosis, chronic alcoholism, ITP who presented to the hospital after a suicide attempt by Benadryl and Tylenol overdose. She was seen in the hospital by our medical team and subsequently transferred to [facility] for further care. The family medicine service was consulted for assistance with her multiple medical comorbidities. She is seen in her room, c/o of chronic abdominal pain. States she is due for a paracentesis. Objective Last Impressions Chest X-Ray 11/27/16 0000 Signed Impressions: Service Date/Time: Sunday, November 27, 2016 11:10 - CONCLUSION: Bilateral infiltrates and effusions, right worse than left Michoacano Mcmullen MD Abdomen Ultrasound 11/26/16 0000 Signed Impressions: Service Date/Time: Saturday, November 26, 2016 17:43 - CONCLUSION: 1. Hepatomegaly without focal lesion. 2. Moderate amount of ascites. Valentin El MD Physical exam GENERAL: wd female, resting in bed. SKIN: Warm and dry. Jaundiced HEAD: Normocephalic. AT EYES: No scleral icterus. No injection or drainage. ENT: OP clear. NECK: Supple, trachea midline. + elevated JVP. CARDIOVASCULAR: Regular rate and rhythm without murmurs, gallops, or rubs. RESPIRATORY: Breath sounds equal bilaterally. No accessory muscle use. GASTROINTESTINAL: Abdomen soft, non-tender, mildly distended. No rebound. + fluid wave MUSCULOSKELETAL: No cyanosis, or edema. BACK: Nontender without obvious deformity. No CVA tenderness. NEURO: Awake and alert. Normal speech. CN grossly intact. PSYCH: Calm. Assessment Assessment 41yoF with: Overdose Depression/Anxiety ITP DM Cirrhosis with ascites Chronic alcoholism Anemia Hypokalemia Lactic acidosis PLAN PLAN Continue management per psych Resources for EtOH Trend INR, LFTs Abdominal ultrasound with therapeutic and diagnostic paracentesis Continue treatment for CAP Counseled on alcohol cessation CIOK protocol Patient seen and examined with the resident team. Case reviewed and discussed Agree with plan of care as discussed with me and documented in the resident note. (Christin Recinos MD) Problem List: (1) Cirrhosis of liver ICD Codes: K74.60 - Unspecified cirrhosis of liver Status: Chronic Plan: Chronic cirrhosis with ascites. States she last had paracentesis a few weeks ago, states she usually has paracentesis once a month. Notes an abdominal pain lasting approximately 2 months. Was partially relieved by paracentesis last time. No systemic signs of infection at this point. -Diagnostic and therapeutic paracentesis to be done -Continue lactulose -Continue rifaximin -Observe for signs of SBP (2) Pneumonia ICD Codes: J18.9 - Pneumonia, unspecified organism Status: Resolved Plan: Being treated for possible community-acquired pneumonia prior to acceptance to med psych. -Continue azithromycin 250 mg daily -Continue ceftriaxone 1000 mg every 24 hours -Follow-up chest x-ray (3) Overdose by acetaminophen ICD Codes: T39.1X1A - Poisoning by 4-Aminophenol derivatives, accidental ( unintentional), initial encounter Status: Resolved Plan: Initially came into the hospital for overdose of acetaminophen. Currently status post full acetaminophen antidote treatment. -Avoid Tylenol (4) FEN Plan: Plan: Fluids * Fluids by mouth Electrolytes * Monitor and correct as needed Nutrition * Regular Prophylaxis * Thrombocytopenia. (Pablo Baez MD R1) Pablo Baez MD R1 Nov 29, 2016 15:53 Christin Recinos MD Dec 02, 2016 13:40
[2016-11-29] MEDS: traZODone HCL 100 MG TAB PO SCH (17:44)
[2016-11-29] MEDS ORDERED: SODIUM CHLORIDE 0.9% FLUSH 10 ML FLUSH IV FLUSH PRN (18:00)
[2016-11-29] MEDS: cefTRIAXone INJ 1,000 MG in SODIUM CHLORIDE 0.9% INJ 100 ML IV SCH (18:00)
[2016-11-29 19:03] LABS: C. DIFF EPI 027 PRESUMPTIVE NEGATIVE (NEGATIVE)
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
[2016-11-29 19:19] VITALS: BP 90/48; PULSE 95; RESP 16; TEMP 98.5; O2SAT 97
[2016-11-29] MEDS: AZITHROMYCIN INJ 500 MG in SODIUM CHLOR 0.9% 250 ML INJ 250 ML IV SCH (20:00)
[2016-11-29] MEDS: RIFAXIMIN 550 MG TAB PO SCH (20:57)
[2016-11-29] MEDS: SODIUM CHLORIDE 0.9% FLUSH 10 ML FLUSH IV FLUSH SCH (21:00)
[2016-11-30] MEDS: RIFAXIMIN 550 MG TAB PO SCH ×2 (08:07→20:53)
[2016-11-30] MEDS: PENTOXIFYLLINE 400 MG CONTROLLED RELEASE TAB PO SCH (08:07)
[2016-11-30] MEDS: CITALOPRAM HYDROBROMIDE 20 MG TAB PO SCH (08:07)
[2016-11-30] MEDS: LACTULOSE SYRUP 20 GM/30 ML CUP PO SCH (08:08)
[2016-11-30] MEDS: SPIRONOLACTONE 50 MG TAB PO SCH (08:08)
[2016-11-30 08:13] VITALS: BP 98/57; PULSE 85; RESP 18; TEMP 97.7; O2SAT 99
--- NOTE | 2016-11-30 08:54 | RADRPT ---
EXAM DATE/TIME: 11/30/2016 08:45 [facility] COMPARISON: CHEST PA & LAT, November 27, 2016, 11:10. INDICATIONS : Shortness of breath; Pneumonia. MEDICAL HISTORY : Cardiovascular disease. Diabetes mellitus type II. Heart murmur SURGICAL HISTORY : Cholecystectomy. ENCOUNTER: Subsequent ACUITY: 1 week PAIN SCORE: 0/10 LOCATION: Bilateral chest FINDINGS: PA and lateral views of the chest demonstrate the lungs to be symmetrically aerated without evidence of mass, infiltrate or effusion. The cardiomediastinal contours are unremarkable. Osseous structure s are intact. CONCLUSION: No acute disease. Charli Garibay MD on November 30, 2016 at 8:53 Board Certified Radiologist. This report was verified electronically.
[2016-11-30] MEDS: NICOTINE 21 MG/24 HR PATCH T-DERMAL SCH (09:00)
[2016-11-30] MEDS: SODIUM CHLORIDE 0.9% FLUSH 10 ML FLUSH IV FLUSH SCH ×2 (09:00→21:19)
[2016-11-30] MEDS: REMOVE OLD NICODERM (NICOTINE) PATCH T-DERMAL SCH (09:00)
[2016-11-30 11:21] LABS: HEMATOCRIT 23.8 % (35.0-46.0); MEAN CELL VOLUME 110.2 FL (80.0-100.0); MEAN CORPUSCULAR HEMOGLOBIN 38.5 PG (27.0-34.0); MEAN CORPUSCULAR HGB CONC 34.9 % (32.0-36.0); PLATELET COUNT 42 TH/MM3 (150-450); RED BLOOD COUNT 2.16 MIL/MM3 (4.00-5.30)
[2016-11-30 11:27] LABS: INTERNATIONAL NORMALIZED RATIO 2.3 RATIO
[2016-11-30 11:28] LABS: REVIEW FLAG FINAL
--- NOTE | 2016-11-30 11:28 | HHI.PYPN ---
Subjective Remarks Patient seen for follow-up, chart reviewed. Patient reports feeling "ok", continues to report some nausea, diarrhea but mood has been "down but getting a little better". Patient denies any suicidal ideations today. She reports having spoken to her who plans on being home when she is discharged. She states that it may also be possible that she stay with her sister. Chief Complaint: Suicide attempt via overdose Review of Systems Except as stated in HPI: all other systems reviewed are Neg Mental Status Examination Consciousness: Alert Appearance: Appropriate Speech: Unremarkable Orientation: x3 Memory: Unremarkable Thought Content: Linear, Logical Thought Associations: Intact Language: Other (fluent and spontaneous) Fund of Knowledge: Average Attention and Concentration: Good Suicidal Ideation: No Previous Suicide Attempts: No Homicidal Ideation: No Previous Homicide Attempts: No Insight: Fair Judgment: Adequate (improving) Affect: Sad Mood: Sad Results Labs Test 11/29/16 16:15 Stool C. difficile Toxin (PCR) NEGATIVE Stl C. difficile Toxin Epiderm 027 PRESUMPTIVE NEGATIVE Vitals/IOs Vital Signs Date Time Temp Pulse Resp B/P (MAP) Pulse Ox O2 Delivery O2 Flow Rate FiO2 11/30/16 08:13 97.7 85 18 98/57 (71) 99 Assessment & Plan Problem List: (1) Major depressive disorder, recurrent ICD Codes: F33.9 - Major depressive disorder, recurrent, unspecified (2) Alcohol abuse ICD Codes: F10.10 - Alcohol abuse, uncomplicated Status: Acute Assessment & Plan Patient continues to have depressed mood but not endorsing suicidal ideation today. Continue current treatment. Recommendations as per primary medical team. Discharge planning in progress. Justification for Cont. Inpt. At risk for further decompensation if at lower level of care. Request HC Surrog/Guard Advoc?: Charli Tompkins MD Nov 30, 2016 10:48
[2016-11-30 11:38] LABS: ANION GAP 9 MEQ/L (5-15); AST (GOT) 79 U/L (15-37); BLOOD UREA NITROGEN 9 MG/DL (7-18); CHLORIDE 107 MEQ/L (98-107); GLOMERULAR FILTRATION RATE 83 ML/MIN (>89); POTASSIUM 3.4 MEQ/L (3.5-5.1); SODIUM (NA) 138 MEQ/L (136-145)
[2016-11-30 11:39] LABS: ALT (GPT) 22 U/L (10-53)
[2016-11-30 11:42] LABS: ALKALINE PHOSPHATASE 114 U/L (45-117); TOTAL BILIRUBIN ADULT 9.6 MG/DL (0.2-1.0)
--- NOTE | 2016-11-30 16:13 | HHI.FPPN ---
Subjective Remarks Patient was seen and examined this morning. She states her mood is improved today. She states abdominal pain is improved today. She has no nausea or vomiting. She said no notable side effects from the antidepressants she is on. No bleeding reported. (Blanca Jolly MD R2) Objective Vitals Vital Signs Date Time Temp Pulse Resp B/P (MAP) Pulse Ox O2 Delivery O2 Flow Rate FiO2 11/30/16 08:13 97.7 85 18 98/57 (71) 99 11/29/16 19:19 98.5 95 16 90/48 (62) 97 I/O 11/29/16 11/29/16 11/29/16 11/30/16 11/30/16 11/30/16 07:00 15:00 23:00 07:00 15:00 23:00 Intake Total 480 ml 480 ml 722 ml 60 ml Output Total 1 ml Balance 480 ml 480 ml 721 ml 60 ml Intake Oral 480 ml 480 ml 722 ml 60 ml Output Stool Total 1 ml # Voids 2 1 (Blanca Jolly MD R2) Result Diagram: 11/30/16 1053 11/30/16 1053 Imaging Last Impressions Chest X-Ray 11/30/16 0000 Signed Impressions: Service Date/Time: November 08:45 - CONCLUSION: No acute disease. Charli Garibay MD Objective Remarks GENERAL: well nourished, jaundiced female in no apparent distress. She is in good spirits. SKIN: Warm and dry. Spider angiomata noted on the trunk and proximal extremities. HEAD: Atraumatic. Normocephalic. EYES: Pupils equal and round. + scleral icterus. No injection or drainage. ENT: No nasal bleeding or discharge. Mucous membranes pink and moist. NECK: Trachea midline. JVD noted. CARDIOVASCULAR: Regular rate and rhythm. No obvious murmurs. 2+ pulses distally. No pedal edema. RESPIRATORY: No accessory muscle use. Clear to auscultation without rales or rhonchi. Breath sounds equal bilaterally. GASTROINTESTINAL: Abdomen soft, non-tender, distended with ascites. Hepatic and splenic margins not palpable. MUSCULOSKELETAL: Extremities without clubbing, cyanosis, or edema. No obvious deformities. NEUROLOGICAL: Awake and alert.Cranial nerves intact. Motor grossly within normal limits. Normal gait and speech. PSYCHIATRIC: Appropriate mood and affect; insight and judgment appear normal . No SI/HI. Medications and IVs Inpatient Medications Acetaminophen (Tylenol) 500 mg Q8HR PRN PO PAIN; Start 11/28/16 at 17:30; Stop 11/29/16 at 14:28; Status DC Al Hydrox/Mg Hydrox/Simethicone (Mag-Al Plus Susp Liq) 30 ml Q6H PRN PO DYSPEPSIA; Start 11/28/16 at 17:30 Azithromycin 500 mg/Sodium Chloride 250 ml @ 250 mls/hr Q24H IV Last administered on 11/29/16 20:00; Start 11/29/16 at 20:00 Ceftriaxone Sodium 1000 mg/ Sodium Chloride 100 ml @ 200 mls/hr Q24H IV Last administered on 11/30/16 17:05; Start 11/29/16 at 18:00 Citalopram Hydrobromide (CeleXA) 20 mg DAILY PO Last administered on 11/30/16 08:07; Start 11/29/16 at 15:00 Ibuprofen (Motrin) 400 mg Q8H PRN PO PAIN SCALE 1 TO 10 Last administered on 08:07; Start 11/29/16 at 14:30 Lactulose (Lactulose Liq) 30 ml DAILY PO Last administered on 11/30/16 08:08; Start 11/30/16 at 09:00; Status Future Hold Magnesium Hydroxide (Milk Of Magnesia Liq) 30 ml DAILY PRN PO CONSTIPATION; Start 11/28/16 at 17:30 Miscellaneous Information 1 DAILY T-DERMAL ; Start 11/30/16 at 09:00 Naloxone HCl (Narcan Inj) 0.4 mg UNSCH PRN IV PUSH SEE LABEL COMMENTS; Start 11/29/16 at 14:15 Nicotine (Habitrol 21 Mg Patch.24 Hr) 1 patch DAILY T-DERMAL ; Start 11/28/16 at 17:30 Oxycodone HCl (Roxicodone) 5 mg Q4H PRN PO PAIN SCALE 3 TO 5; Start 11/29/16 at 14:15; Stop 11/29/16 at 14:21; Status DC Pentoxifylline (TRENtal SR) 400 mg DAILY PO Last administered on 11/30/16 08: 07; Start 11/28/16 at 17:30; Status Future Hold Rifaximin (Xifaxan) 550 mg BID PO Last administered on 11/30/16 20:53; Start 11/29/16 at 21:00 Sodium Chloride (NS Flush) 2 ml BID IV FLUSH Last administered on 11/30/16 09: 00; Start 11/29/16 at 21:00 Spironolactone (Aldactone) 50 mg DAILY PO Last administered on 11/30/16 08:08 ; Start 11/28/16 at 17:30 Temazepam (Restoril) 7.5 mg HS PO Last administered on 11/30/16 20:53; Start 11/30/16 at 21:00 Trazodone HCl (Desyrel) 100 mg HS PO Last administered on 11/29/16 17:44; Start 11/28/16 at 21:00; Stop 11/30/16 at 10:45; Status DC (Blanca Jolly MD R2) Urinary Catheter: No (Blanca Jolly MD R2) Vascular Central Line Catheter: No (Blanca Jolly MD R2) A/P Assessment and Plan 41 -year-old female with past history of cirrhosis, ITP, anxiety, depression with reported suicide attempt with diphenhydramine and acetaminophen 11/26. Completed Acetaminophen treatment 11/27. Abdominal pain, diarrhea improving. Reports paracentesis a couple weeks ago, usually treated once a month. Possible CAP on admission based on abnormal CXR. Admitted for further workup and management of above. Discharge Planning Likely 1-2 days. Clinically improved. Will need discharge plan for psychiatric condition and liver disease followup. Discussed with Dr. Baez and Dr. Recinos (Blanca Jolly MD R2) Attending Attestation Patient seen and examined. Case reviewed and discussed Agree with plan of care as discussed with me and documented in the resident note. (Christin Recinos MD) Problem List: (1) Cirrhosis of liver ICD Codes: K74.60 - Unspecified cirrhosis of liver Status: Chronic Plan: Chronic cirrhosis with symptomatic ascites, stable. States she last had paracentesis a few weeks prior to admission. She does not have outpatient PCP or GI physician. She has had paracentesis set up in ED approximately once monthy. Symptoms have improved. Low suspicion for SBP. -Diagnostic and therapeutic paracentesis ordered. Thrombocytopenia and elevated INR preclude completion today -Continue lactulose (pt refused today) -Continue rifaximin -Observe for signs of SBP (2) Pneumonia ICD Codes: J18.9 - Pneumonia, unspecified organism Status: Resolved Plan: Being treated for possible community-acquired pneumonia prior to acceptance to [facility] psych floor. CXR 11/27 showing bilateral infiltrates Repeat CXR shows no evidence of disease For now, continue azithromycin 250 mg daily, ceftriaxone 1000 mg every 24 hours. Likely d/c on discharge or prior (3) Overdose by acetaminophen ICD Codes: T39.1X1A - Poisoning by 4-Aminophenol derivatives, accidental ( unintentional), initial encounter Status: Resolved Plan: Admitted for possible overdose of acetaminophen. Currently status post full acetaminophen antidote treatment (N acetylcysteine) -Avoid liver-toxic medications -Liver failure diet (4) Major depressive disorder, recurrent ICD Codes: F33.9 - Major depressive disorder, recurrent, unspecified Plan: Med-psych MD managing. Patient currently under voluntary status. Was on Trazodone, discontinued per psychiatry Current treatment: Celexa 20mg Restoril 7.5mg hs Per orders, plan may be for pt to establish with [facility] upon discharge (5) FEN Plan: Plan: Fluids * Fluids by mouth Electrolytes * Monitor and correct as needed Nutrition * Regular Prophylaxis * Thrombocytopenia, PPX contraindicated (Blanca Jolly MD R2) Blanca Jolly MD R2 Nov 30, 2016 16:13 Christin Recinos MD Dec 02, 2016 13:35
[2016-11-30] MEDS: cefTRIAXone INJ 1,000 MG in SODIUM CHLORIDE 0.9% INJ 100 ML IV SCH (17:05)
[2016-11-30 18:03] VITALS: BP 105/54; PULSE 71; RESP 18; TEMP 97.4; O2SAT 100
[2016-11-30] MEDS: TEMAZEPAM 7.5 MG CAP PO SCH (20:53)
[2016-11-30] MEDS: AZITHROMYCIN INJ 500 MG in SODIUM CHLOR 0.9% 250 ML INJ 250 ML IV SCH (21:19)
[2016-12-01] VITALS (11 sets, daily range): BP systolic 95–110; BP diastolic 50–68; PULSE 74–86; RESP 16–20; TEMP 97.9–99.1; O2SAT 94–99
[2016-12-01 05:56] LABS: AUTOMATED NEUTROPHIL # 2.7 TH/MM3 (1.8-7.7); BASOPHIL % 0.8 % (0.0-2.0); EOSINOPHIL # 0.1 TH/MM3 (0-0.4); EOSINOPHIL % 2.1 % (0.0-4.0); HEMATOCRIT 25.3 % (35.0-46.0); LYMPHOCYTE # 1.4 TH/MM3 (1.0-4.8); MEAN CELL VOLUME 112.9 FL (80.0-100.0); MEAN CORPUSCULAR HEMOGLOBIN 38.1 PG (27.0-34.0); MEAN CORPUSCULAR HGB CONC 33.7 % (32.0-36.0); MONO % 6.4 % (0.0-8.0); NEUT % 59.7 % (16.0-70.0); PLATELET COUNT 47 TH/MM3 (150-450); RED BLOOD COUNT 2.24 MIL/MM3 (4.00-5.30); RED CELL DISTRIBUTION WIDTH 16.7 % (11.6-17.2); WHITE BLOOD COUNT 4.5 TH/MM3 (4.0-11.0)
[2016-12-01 06:06] LABS: HEMO FLAGS AUTO DIFF
[2016-12-01 06:17] LABS: ANION GAP 10 MEQ/L (5-15); AST (GOT) 86 U/L (15-37); BICARBONATE 21.4 MEQ/L (21.0-32.0); BLOOD UREA NITROGEN 8 MG/DL (7-18); CHLORIDE 106 MEQ/L (98-107); GLOMERULAR FILTRATION RATE 85 ML/MIN (>89); POTASSIUM 3.1 MEQ/L (3.5-5.1); SODIUM (NA) 137 MEQ/L (136-145)
[2016-12-01 06:18] LABS: ALT (GPT) 24 U/L (10-53)
[2016-12-01 06:20] LABS: ALKALINE PHOSPHATASE 119 U/L (45-117); TOTAL BILIRUBIN ADULT 9.1 MG/DL (0.2-1.0)
[2016-12-01 06:28] LABS: INTERNATIONAL NORMALIZED RATIO 2.1 RATIO; PROTHROMBIN TIME - PATIENT 23.4 SEC (9.8-11.6)
[2016-12-01] MEDS ORDERED: POTASSIUM CHLORIDE 10 MEQ CONTROLLED RELEASE TAB PO ONE (07:00)
[2016-12-01 07:43] LABS: ACANTHOCYTES 1+ (NORMAL); PLATELET ESTIMATE SMEAR LOW (NORMAL); PLATELET MORPHOLOGY NORMAL (NORMAL)
[2016-12-01 07:44] LABS: BURR CELLS 1+ (NORMAL); SCAN/DIFF AUTO DIFF CONFIRMED
[2016-12-01] MEDS: NICOTINE 21 MG/24 HR PATCH T-DERMAL SCH (08:52)
[2016-12-01] MEDS: REMOVE OLD NICODERM (NICOTINE) PATCH T-DERMAL SCH (09:00)
[2016-12-01] MEDS: SODIUM CHLORIDE 0.9% FLUSH 10 ML FLUSH IV FLUSH SCH ×2 (09:00→21:00)
[2016-12-01] MEDS: RIFAXIMIN 550 MG TAB PO SCH ×2 (09:04→21:03)
[2016-12-01] MEDS: SPIRONOLACTONE 50 MG TAB PO SCH (09:04)
[2016-12-01] MEDS: CITALOPRAM HYDROBROMIDE 20 MG TAB PO SCH (09:04)
--- NOTE | 2016-12-01 10:02 | HHI.PYPN ---
Subjective Remarks Patient seen for follow-up, chart reviewed. Patient found walking around her room noted to be calm and cooperative in interview. Patient states that she is feeling "having good thoughts". She states that she denies feeling sad today and not having any suicidal ideations either. Patient states that she wants to take care of herself. Patient reports that when she is medically and psychiatrically cleared she plans on returning home to engage in outpatient rehabilitation program with the possibility of going to stay with her children out of state to have more support. Chief Complaint: Suicide attempt via overdose Review of Systems Except as stated in HPI: all other systems reviewed are Neg Mental Status Examination Appearance: Appropriate Consciousness: Alert Orientation: Person, Place, Date/Time Motor Activity: Normal gait Speech: Unremarkable Language: Adequate Fund of Knowledge: Adequate Attention and Concentration: Adequate Memory: Unremarkable Mood: Good Affect: Appropriate Thought Process & Associations: Logical, Goal directed Thought Content: Appropriate Hallucination Type: None Delusion Type: None Suicidal Ideation: No Suicidal Plan: No Suicidal Intention: No Homicidal Ideation: No Homicidal Plan: No Homicidal Intention: No Insight: Fair Judgment: Adequate (improving) Results Labs Test 11/30/16 10:53 12/01/16 05:33 White Blood Count 5.0 TH/MM3 4.5 TH/MM3 Red Blood Count 2.16 MIL/MM3 2.24 MIL/MM3 Hemoglobin 8.3 GM/DL 8.5 GM/DL Hematocrit 23.8 % 25.3 % Mean Corpuscular Volume 110.2 FL 112.9 FL Mean Corpuscular Hemoglobin 38.5 PG 38.1 PG Mean Corpuscular Hemoglobin Concent 34.9 % 33.7 % Red Cell Distribution Width 16.0 % 16.7 % Platelet Count 42 TH/MM3 47 TH/MM3 Mean Platelet Volume 7.6 FL 7.4 FL Prothrombin Time 26.0 SEC 23.4 SEC Prothromb Time International Ratio 2.3 RATIO 2.1 RATIO Blood Urea Nitrogen 9 MG/DL 8 MG/DL Creatinine 0.77 MG/DL 0.76 MG/DL Random Glucose 90 MG/DL 113 MG/DL Total Protein 5.4 GM/DL 5.7 GM/DL Albumin 2.4 GM/DL 2.4 GM/DL Calcium Level 7.8 MG/DL 8.0 MG/DL Alkaline Phosphatase 114 U/L 119 U/L Aspartate Amino Transf (AST/SGOT) 79 U/L 86 U/L Alanine Aminotransferase (ALT/SGPT) 22 U/L 24 U/L Total Bilirubin 9.6 MG/DL 9.1 MG/DL Sodium Level 138 MEQ/L 137 MEQ/L Potassium Level 3.4 MEQ/L 3.1 MEQ/L Chloride Level 107 MEQ/L 106 MEQ/L Carbon Dioxide Level 22.0 MEQ/L 21.4 MEQ/L Anion Gap 9 MEQ/L 10 MEQ/L Estimat Glomerular Filtration Rate 83 ML/MIN 85 ML/MIN Ammonia 64 MCMOL/L Neutrophils (%) (Auto) 59.7 % Lymphocytes (%) (Auto) 31.0 % Monocytes (%) (Auto) 6.4 % Eosinophils (%) (Auto) 2.1 % Basophils (%) (Auto) 0.8 % Neutrophils # (Auto) 2.7 TH/MM3 Lymphocytes # (Auto) 1.4 TH/MM3 Monocytes # (Auto) 0.3 TH/MM3 Eosinophils # (Auto) 0.1 TH/MM3 Basophils # (Auto) 0.0 TH/MM3 CBC Comment AUTO DIFF Differential Comment AUTO DIFF CONFIRMED Platelet Estimate LOW Platelet Morphology Comment NORMAL Jayne Cells 1+ Acanthocytes 1+ Vitals/IOs Vital Signs Date Time Temp Pulse Resp B/P (MAP) Pulse Ox O2 Delivery O2 Flow Rate FiO2 12/01/16 08:45 86 110/57 (74) 12/01/16 05:20 97.9 17 11/30/16 18:03 100 Intake and Output 12/01/16 12/01/16 12/02/16 08:00 16:00 00:00 Intake Total 240 ml 240 ml Balance 240 ml 240 ml Assessment & Plan Problem List: (1) Major depressive disorder, recurrent ICD Codes: F33.9 - Major depressive disorder, recurrent, unspecified (2) Alcohol abuse ICD Codes: F10.10 - Alcohol abuse, uncomplicated Status: Acute Assessment & Plan Patient appears to be responding to treatment, noted to have better mood today and denies any suicidality. Continue current treatment. Patient to continue recommendations as per primary medical team. Patient was given substance rehabilitation packet to review so that to include a intervention for her alcohol use disorder. Discharge planning in progress Justification for Cont. Inpt. At risk for further decompensation if at lower level of care. Discharge Planning Patient noted to be improving with likely discharge within 2-3 days with outpatient follow-up and outpatient rehabilitation program for substance use. Request HC Surrog/Guard Advoc?: No Charli Carlisle MD Dec 01, 2016 10:02
[2016-12-01] MEDS ORDERED: PHYTONADIONE 5 MG TAB PO ONE (10:15)
[2016-12-01 13:47] LABS: INTERNATIONAL NORMALIZED RATIO 2.1 RATIO
[2016-12-01 14:00] LABS: PROTHROMBIN TIME - PATIENT 24.2 SEC (9.8-11.6)
[2016-12-01] MEDS ORDERED: LIDOCAINE HCL 1% 20 ML VIAL ONE (15:00)
[2016-12-01] MEDS ORDERED: LOPERAMIDE HCL SOLN 2 MG/10 ML UDC PO PRN (15:15)
[2016-12-01] MEDS ORDERED: LOPERAMIDE HCL SOLN 2 MG/10 ML UDC PO ONE (15:15)
--- NOTE | 2016-12-01 15:54 | HHI.FPPN ---
Subjective Remarks Patient seen and examined today. Patient states her abdominal pain is feeling better. She states that she's currently having diarrhea, multiple times an hour. No blood or black specks in her bowel movements. No nausea, vomiting, fever, chills, chest pain, shortness breath, change in urinary habits. States she does not nausea herself or others. No she is eager and willing to start AA outpatient to help with her drinking issues. No other complaints today. (Pablo Baez MD R1) Objective Vitals Vital Signs Date Time Temp Pulse Resp B/P (MAP) Pulse Ox O2 Delivery O2 Flow Rate FiO2 12/01/16 15:37 98.0 81 18 96/68 (77) 99 12/01/16 14:45 98.1 75 16 101/50 (67) 99 12/01/16 08:45 86 110/57 (74) 12/01/16 05:20 97.9 80 17 97/52 (67) 11/30/16 18:03 97.4 71 18 105/54 (71) 100 I/O 11/30/16 11/30/16 11/30/16 12/01/16 12/01/16 12/01/16 07:00 15:00 23:00 07:00 15:00 23:00 Intake Total 60 ml 340 ml 240 ml 570 ml Balance 60 ml 340 ml 240 ml 570 ml Intake Oral 60 ml 240 ml 240 ml 570 ml IV Total 100 ml # Voids 1 10 1 # Bowel Movements 9 (Pablo Baez MD R1) Result Diagram: 12/01/1633 12/01/1633 Objective Remarks GENERAL: well nourished, jaundiced female in no apparent distress. She is in good spirits. SKIN: Warm and dry. Spider angiomata noted on the trunk and proximal extremities. HEAD: Atraumatic. Normocephalic. EYES: Pupils equal and round. + scleral icterus. No injection or drainage. ENT: No nasal bleeding or discharge. Mucous membranes pink and moist. NECK: Trachea midline. JVD noted. CARDIOVASCULAR: Regular rate and rhythm. No obvious murmurs. 2+ pulses distally. No pedal edema. RESPIRATORY: No accessory muscle use. Clear to auscultation without rales or rhonchi. Breath sounds equal bilaterally. GASTROINTESTINAL: Abdomen soft, non-tender, distended with ascites. Hepatic and splenic margins not palpable. MUSCULOSKELETAL: Extremities without clubbing, cyanosis, or edema. No obvious deformities. NEUROLOGICAL: Awake and alert.Cranial nerves intact. Motor grossly within normal limits. Normal gait and speech. PSYCHIATRIC: Appropriate mood and affect; insight and judgment appear normal . No SI/HI. Medications and IVs Current Medications Medications (Trade) Dose Ordered Sig/Ric Route Start Time Stop Time Status Last Admin (Milk Of Magnesia Liq) 30 ml DAILY PRN PO 11/28/16 17:30 (Mag-Al Plus Susp Liq) 30 ml Q6H PRN PO 11/28/16 17:30 (Habitrol 21 Mg Patch.24 Hr) 1 patch DAILY T-DERMAL 11/28/16 17:30 (TRENtal SR) 400 mg DAILY PO 11/28/16 17:30 Future Hold 11/30/16 08:07 (Aldactone) 50 mg DAILY PO 11/28/16 17:30 12/01/16 09:04 (CeleXA) 20 mg DAILY PO 11/29/16 15:00 12/01/16 09:04 (Narcan Inj) 0.4 mg UNSCH PRN IV PUSH 11/29/16 14:15 (Motrin) 400 mg Q8H PRN PO 11/29/16 14:30 11/30/16 08:07 (NS Flush) 2 ml UNSCH PRN IV FLUSH 11/29/16 18:00 (NS Flush) 2 ml BID IV FLUSH 11/29/16 21:00 12/01/16 09:00 Ceftriaxone Sodium 1000 mg/ Sodium Chloride 100 ml @ 200 mls/hr Q24H IV 11/29/16 18:00 11/30/16 17:05 Azithromycin 500 mg/Sodium Chloride 250 ml @ 250 mls/hr Q24H IV 11/29/16 20:00 11/30/16 21:19 (Lactulose Liq) 30 ml DAILY PO 11/30/16 09:00 Future Hold 11/30/16 08:08 (Xifaxan) 550 mg BID PO 11/29/16 21:00 12/01/16 09:04 Miscellaneous Information 1 DAILY T-DERMAL 11/30/16 09:00 (Restoril) 7.5 mg HS PO 11/30/16 21:00 11/30/16 20:53 (Imodium Liq) 2 mg UNSCH PRN PO 12/01/16 15:15 (Pablo Baez MD R1) A/P Assessment and Plan 41 -year-old female with past history of cirrhosis, ITP, anxiety, depression with reported suicide attempt with diphenhydramine and acetaminophen 11/26. Completed Acetaminophen treatment 11/27. Abdominal pain, diarrhea improving. Reports paracentesis a couple weeks ago, usually treated once a month. Possible CAP on admission based on abnormal CXR. Admitted for further workup and management of above. Discharge Planning Likely 1-2 days. Clinically improved. Will need discharge plan for psychiatric condition and liver disease followup. Discussed with Dr. Recinos (Pablo Baez MD R1) Attending Attestation Patient seen and examined. Case reviewed and discussed Agree with plan of care as discussed with me and documented in the resident note. (Christin Recinos MD) Problem List: (1) Cirrhosis of liver ICD Codes: K74.60 - Unspecified cirrhosis of liver Status: Chronic Plan: Chronic cirrhosis with symptomatic ascites, stable. States she last had paracentesis a few weeks prior to admission. She does not have outpatient PCP or GI physician. She has had paracentesis set up in ED approximately once monthly. Symptoms have improved. Low suspicion for SBP. -Diagnostic and therapeutic paracentesis ordered. To receive FFP and had paracentesis completed today. -Continue lactulose (pt refused today) -Continue rifaximin -Observe for signs of SBP (2) Pneumonia ICD Codes: J18.9 - Pneumonia, unspecified organism Status: Resolved Plan: Being treated for possible community-acquired pneumonia prior to acceptance to med psych floor. CXR 11/27 showing bilateral infiltrates Repeat CXR shows no evidence of disease For now, continue azithromycin 250 mg daily, ceftriaxone 1000 mg every 24 hours. Likely d/c on discharge or prior (3) Overdose by acetaminophen ICD Codes: T39.1X1A - Poisoning by 4-Aminophenol derivatives, accidental ( unintentional), initial encounter Status: Resolved Plan: Admitted for possible overdose of acetaminophen. Currently status post full acetaminophen antidote treatment (N acetylcysteine) -Avoid hepatotoxic medications -Liver failure diet (4) Major depressive disorder, recurrent ICD Codes: F33.9 - Major depressive disorder, recurrent, unspecified Plan: Med-psych MD managing. Patient currently under voluntary status. Was on Trazodone, discontinued per psychiatry Current treatment: Celexa 20mg Restoril 7.5mg hs Per orders, plan may be for pt to establish with [facility] upon discharge (5) FEN Plan: Plan: Fluids * Fluids by mouth Electrolytes * Monitor and correct as needed Nutrition * Regular Prophylaxis * Thrombocytopenia, PPX contraindicated (Pablo Baez MD R1) Pablo Baez MD R1 Dec 01, 2016 15:54 Christin Recinos MD Dec 02, 2016 13:34
--- NOTE | 2016-12-01 16:15 | RADRPT ---
EXAM DATE/TIME: 12/01/2016 15:29 [facility] COMPARISON: No previous studies available for comparison. INDICATIONS : Ascities. MEDICAL HISTORY : Cirrhosis. Portal hypertension. ETOH. SURGICAL HISTORY : Cholecystectomy section. Exploratory laporoscopy. ENCOUNTER: Subsequent ACUITY: 1 month PAIN SCORE: 0/10 LOCATION: Right lower quadrant FLUID: Total volume of 4100 cc of clear, red fluid was removed. Fluid was sent to lab for ordered studies. Post procedure scanning reveals no hematoma or other complication. TECHNIQUE: 1. Ultrasound guidance for abdominal paracentesis. 2. Paracentesis. The risks, benefits, and alternatives to ultrasound guided paracentesis were explained to the patient in detail including the risk of bleeding and infection. Written and verbal informed consent was obt ained. With the patient on the ultrasound table, ultrasound imaging was used to select the most appropriate approach for paracentesis. Overlying skin was prepped and draped in the usual sterile fashion and wi th a local anesthetic, a dermatotomy was made with an 11 blade scalpel. A 6 Thai [id number] ca theter was introduced into the peritoneal cavity and fluid was collected. The patient tolerated the procedure well and left the ultrasound suite in stable condition. CONCLUSION: Uncomplicated ultrasound guided paracentesis. Charli Garibay MD on December 01, 2016 at 16:13 Board Certified Radiologist. This report was verified electronically.
[2016-12-01 17:47] LABS: PERITONEAL LYMPHS 42 %; PERITONEAL MONOS 24 %; PERITONEAL POLYS(SEGS) 34 %; PERITONEAL WBC 170 /MM3 (0-10)
[2016-12-01] MEDS: cefTRIAXone INJ 1,000 MG in SODIUM CHLORIDE 0.9% INJ 100 ML IV SCH (18:00)
[2016-12-01] MEDS: TEMAZEPAM 7.5 MG CAP PO SCH (21:03)
[2016-12-01] MEDS: AZITHROMYCIN INJ 500 MG in SODIUM CHLOR 0.9% 250 ML INJ 250 ML IV SCH (21:34)
[2016-12-02 04:58] VITALS: BP 93/44; PULSE 80; RESP 15; TEMP 98.1; O2SAT 98
[2016-12-02 04:59] VITALS: BP 93/44; PULSE 80; RESP 16; TEMP 98.1; O2SAT 98
[2016-12-02 06:56] LABS: AUTOMATED NEUTROPHIL # 1.7 TH/MM3 (1.8-7.7); BASOPHIL % 0.8 % (0.0-2.0); EOSINOPHIL # 0.1 TH/MM3 (0-0.4); HEMATOCRIT 22.5 % (35.0-46.0); LYMPH % 39.5 % (9.0-44.0); LYMPHOCYTE # 1.4 TH/MM3 (1.0-4.8); MEAN CELL VOLUME 111.3 FL (80.0-100.0); MEAN CORPUSCULAR HEMOGLOBIN 38.4 PG (27.0-34.0); MEAN CORPUSCULAR HGB CONC 34.5 % (32.0-36.0); MONO % 7.7 % (0.0-8.0); PLATELET COUNT 45 TH/MM3 (150-450); RED BLOOD COUNT 2.02 MIL/MM3 (4.00-5.30); RED CELL DISTRIBUTION WIDTH 16.5 % (11.6-17.2); WHITE BLOOD COUNT 3.5 TH/MM3 (4.0-11.0)
[2016-12-02 07:07] LABS: INTERNATIONAL NORMALIZED RATIO 1.9 RATIO
[2016-12-02 07:09] LABS: HEMO FLAGS AUTO DIFF
[2016-12-02 07:30] LABS: ALKALINE PHOSPHATASE 97 U/L (45-117); ALT (GPT) 26 U/L (10-53); ANION GAP 8 MEQ/L (5-15); AST (GOT) 85 U/L (15-37); BICARBONATE 22.3 MEQ/L (21.0-32.0); BLOOD UREA NITROGEN 5 MG/DL (7-18); CHLORIDE 111 MEQ/L (98-107); GLOMERULAR FILTRATION RATE 121 ML/MIN (>89); POTASSIUM 3.2 MEQ/L (3.5-5.1); SODIUM (NA) 141 MEQ/L (136-145); TOTAL BILIRUBIN ADULT 7.1 MG/DL (0.2-1.0)
[2016-12-02] MEDS: REMOVE OLD NICODERM (NICOTINE) PATCH T-DERMAL SCH (09:00)
[2016-12-02] MEDS: NICOTINE 21 MG/24 HR PATCH T-DERMAL SCH (09:00)
[2016-12-02] MEDS: SODIUM CHLORIDE 0.9% FLUSH 10 ML FLUSH IV FLUSH SCH ×2 (09:00→20:53)
[2016-12-02 09:30] VITALS: BP 100/52; PULSE 84
[2016-12-02] MEDS ORDERED: POTASSIUM CHLORIDE 20 MEQ CONTROLLED RELEASE TAB PO ONE (09:30)
[2016-12-02] MEDS: CITALOPRAM HYDROBROMIDE 20 MG TAB PO SCH (09:48)
[2016-12-02] MEDS: RIFAXIMIN 550 MG TAB PO SCH ×2 (09:48→20:52)
[2016-12-02] MEDS: SPIRONOLACTONE 50 MG TAB PO SCH (09:48)
[2016-12-02 10:09] LABS: ACANTHOCYTES 1+ (NORMAL); BURR CELLS 1+ (NORMAL)
[2016-12-02 10:10] LABS: PLATELET ESTIMATE SMEAR LOW (NORMAL); PLATELET MORPHOLOGY NORMAL (NORMAL); SCAN/DIFF AUTO DIFF CONFIRMED
--- NOTE | 2016-12-02 11:50 | HHI.FPPN ---
Subjective Remarks Patient was seen and examined this morning. She feels great after her paracentesis. Her mood is improved and she feels motivated to continue avoiding alcohol when she goes home. She denies fevers, chills, shortness of breath, chest pain. Abdominal site of paracentesis is mildly tender but abdomen overall no longer feels symptomatic. She is ambulated and eating without difficulty. Bowel movements have improved with PRN Imodium. (Blanca Jolly MD R2) Objective Vitals Vital Signs Date Time Temp Pulse Resp B/P (MAP) Pulse Ox O2 Delivery O2 Flow Rate FiO2 12/02/16 09:30 84 100/52 (68) 12/02/16 04:59 98.1 80 16 93/44 (60) 98 12/02/16 04:58 98.1 80 15 93/44 (60) 98 12/01/16 20:53 80 103/57 (72) 98 12/01/16 19:08 98.1 76 18 99/51 (67) 99 12/01/16 16:25 98.2 82 20 98/50 98 12/01/16 16:05 99.1 74 16 100/54 94 12/01/16 15:50 98.1 81 20 102/59 97 12/01/16 15:37 98.0 81 18 96/68 (77) 99 12/01/16 15:35 98.1 79 16 96/68 97 12/01/16 14:45 98.1 75 16 101/50 (67) 99 I/O 12/01/16 12/01/16 12/01/16 12/02/16 12/02/16 12/02/16 06:59 14:59 22:59 06:59 14:59 22:59 Intake Total 240 ml 570 ml 857 ml 410 ml 360 ml Balance 240 ml 570 ml 857 ml 410 ml 360 ml Intake Oral 240 ml 570 ml 480 ml 60 ml 360 ml IV Total 350 ml FFP 327 ml Blood Product IV Normal Saline Flush 50 ml # Voids 1 1 1 (Blanca Jolly MD R2) Result Diagram: 12/02/1662612/02/16626 Imaging Last Impressions Cyst Biopsy Asp-Paracentesis US 12/01/16 0000 Signed Impressions: Service Date/Time: Thursday, December 01, 2016 15:29 - CONCLUSION: Uncomplicated ultrasound guided paracentesis. Charli Garibay MD Chest X-Ray 11/30/16 0000 Signed Impressions: Service Date/Time: November 08:45 - CONCLUSION: No acute disease. Charli Garibay MD Objective Remarks GENERAL: Well nourished female in no apparent distress. She is in good spirits. SKIN: Warm and dry. Spider angiomata noted on the trunk and proximal extremities. Jaundice improving. HEAD: Atraumatic. Normocephalic. EYES: Pupils equal and round. + scleral icterus, improving. No injection or drainage. ENT: No nasal bleeding or discharge. Mucous membranes pink and moist. NECK: Trachea midline. No JVD noted. CARDIOVASCULAR: Regular rate and rhythm. No obvious murmurs. 2+ pulses distally. No pedal edema. RESPIRATORY: No accessory muscle use. Clear to auscultation without rales or rhonchi. Breath sounds equal bilaterally. GASTROINTESTINAL: Abdomen soft, non-tender, obese but non-distended s/p paracentesis. Hepatic and splenic margins not palpable. MUSCULOSKELETAL: Extremities without clubbing, cyanosis, or edema. No obvious deformities. NEUROLOGICAL: Awake and alert. Cranial nerves intact. Motor grossly within normal limits. Normal speech. PSYCHIATRIC: Appropriate mood and affect; insight and judgment appear normal . No SI/HI. Procedures Paracentesis 12/01/16, 4L removed Medications and IVs Inpatient Medications Acetaminophen (Tylenol) 500 mg Q8HR PRN PO PAIN; Start 11/28/16 at 17:30; Stop 11/29/16 at 14:28; Status DC Al Hydrox/Mg Hydrox/Simethicone (Mag-Al Plus Susp Liq) 30 ml Q6H PRN PO DYSPEPSIA; Start 11/28/16 at 17:30 Azithromycin 500 mg/Sodium Chloride 250 ml @ 250 mls/hr Q24H IV Last administered on 12/01/16 21:34; Start 11/29/16 at 20:00 Ceftriaxone Sodium 1000 mg/ Sodium Chloride 100 ml @ 200 mls/hr Q24H IV Last administered on 12/01/16 18:00; Start 11/29/16 at 18:00 Citalopram Hydrobromide (CeleXA) 20 mg DAILY PO Last administered on 12/02/16 09:48; Start 11/29/16 at 15:00 Ibuprofen (Motrin) 400 mg Q8H PRN PO PAIN SCALE 1 TO 10 Last administered on 08:07; Start 11/29/16 at 14:30 Lactulose (Lactulose Liq) 30 ml DAILY PO Last administered on 11/30/16 08:08; Start 11/30/16 at 09:00; Status Future Hold Loperamide HCl (Imodium Liq) 4 mg ONCE ONCE PO Last administered on 12/01/16 15:15; Start 12/01/16 at 15:15; Stop 12/01/16 at 15:16; Status DC Magnesium Hydroxide (Milk Of Magnesia Liq) 30 ml DAILY PRN PO CONSTIPATION; Start 11/28/16 at 17:30 Miscellaneous Information 1 DAILY T-DERMAL ; Start 11/30/16 at 09:00 Naloxone HCl (Narcan Inj) 0.4 mg UNSCH PRN IV PUSH SEE LABEL COMMENTS; Start 11/29/16 at 14:15 Nicotine (Habitrol 21 Mg Patch.24 Hr) 1 patch DAILY T-DERMAL ; Start 11/28/16 at 17:30 Oxycodone HCl (Roxicodone) 5 mg Q4H PRN PO PAIN SCALE 3 TO 5; Start 11/29/16 at 14:15; Stop 11/29/16 at 14:21; Status DC Pentoxifylline (TRENtal SR) 400 mg DAILY PO Last administered on 11/30/16 08: 07; Start 11/28/16 at 17:30; Status Future Hold Phytonadione (Mephyton) 5 mg ONCE ONCE PO Last administered on 12/01/16 10:15 ; Start 12/01/16 at 10:15; Stop 12/01/16 at 10:16; Status DC Potassium Chloride (KCl) 40 meq ONCE ONCE PO Last administered on 12/02/16 09 :48; Start 12/02/16 at 09:30; Stop 12/02/16 at 09:31; Status DC Rifaximin (Xifaxan) 550 mg BID PO Last administered on 12/02/16 09:48; Start 11/29/16 at 21:00 Sodium Chloride (NS Flush) 2 ml BID IV FLUSH Last administered on 12/02/16 09: 00; Start 11/29/16 at 21:00 Spironolactone (Aldactone) 50 mg DAILY PO Last administered on 12/02/16 09:48 ; Start 11/28/16 at 17:30 Temazepam (Restoril) 7.5 mg HS PO Last administered on 12/01/16 21:03; Start 11/30/16 at 21:00 Trazodone HCl (Desyrel) 100 mg HS PO Last administered on 11/29/16 17:44; Start 11/28/16 at 21:00; Stop 11/30/16 at 10:45; Status DC (Blanca Jolly MD R2) Urinary Catheter: No (Blanca Jolly MD R2) Vascular Central Line Catheter: No (Blanca Jolly MD R2) A/P Assessment and Plan 41 -year-old female with past history of cirrhosis, ITP, anxiety, depression with reported suicide attempt with diphenhydramine and acetaminophen 11/26. Completed Acetaminophen treatment 11/27. Abdominal pain, diarrhea improving. Reports paracentesis a couple weeks ago, usually treated once a month. CAP treatment completed due to abnormal CXR findings. On med-psych floor. Family medicine consulted for further management. Discharge Planning Likely 2-3 days discharge. Clinically improved. Will need discharge plan for psychiatric condition and liver disease followup. Discussed with Dr. Recinos (Blanca Jolly MD R2) Problem List: (1) Cirrhosis of liver ICD Codes: K74.60 - Unspecified cirrhosis of liver Status: Chronic Plan: Chronic cirrhosis with symptomatic ascites, stable. States she last had paracentesis a few weeks prior to admission. She does not have outpatient PCP or GI physician. She has had paracentesis set up in ED approximately once monthly. Symptoms have improved, jaundice improving. Low suspicion for SBP. -Diagnostic and therapeutic paracentesis performed 12/01, distal fluid study showing no evidence of infection. Culture pending. -Continue to monitor labs for signs of blood loss or infection. Anemia noted, chronic, but H&H did drop 12/02 -She is on lactulose, held currently due to significant diarrhea, will restart since resolved likely 12/03 -Continue rifaximin and spironolactone -Observe for signs of SBP (2) Pneumonia ICD Codes: J18.9 - Pneumonia, unspecified organism Status: Resolved Plan: Being treated for possible community-acquired pneumonia prior to acceptance to med psych floor. CXR 11/27 showing bilateral infiltrates Currently asymptomatic Repeat CXR shows no evidence of disease She has completed a 5 day course of azithromycin and Rocephin, 11/27-12/01. DC'd 12/02 (3) Overdose by acetaminophen ICD Codes: T39.1X1A - Poisoning by 4-Aminophenol derivatives, accidental ( unintentional), initial encounter Status: Resolved Plan: Admitted for possible overdose of acetaminophen. Currently status post full acetaminophen antidote treatment (N acetylcysteine) -Avoid hepatotoxic medications -Liver failure diet (4) Major depressive disorder, recurrent ICD Codes: F33.9 - Major depressive disorder, recurrent, unspecified Plan: Med-psych MD managing. Patient currently under voluntary status. Was on Trazodone, discontinued per psychiatry Current treatment: Celexa 20mg Restoril 7.5mg hs Per orders, plan may be for pt to establish with [facility] upon discharge (5) Anemia ICD Codes: D64.9 - Anemia Status: Chronic Plan: Plan as above. It is noted that anemia is chronic but is status post paracentesis and at risk for bleeding given INR, pancytopenia No signs of bleeding on exam or by history (6) FEN Plan: Plan: Fluids * Fluids by mouth Electrolytes * Monitor and correct as needed Nutrition * Regular Prophylaxis * Thrombocytopenia, PPX contraindicated (Blanca Jolly MD R2) Blanca Jolly MD R2 Dec 02, 2016 11:50 Christin Recinos MD Dec 02, 2016 13:34
[2016-12-02 18:00] VITALS: BP 97/53; PULSE 84; RESP 16; TEMP 98.8; O2SAT 98
--- NOTE | 2016-12-02 18:50 | HHI.PYPN ---
Subjective Remarks Patient seen in her room with nurse, chart review, patient compliant medications. Patient, pleasant with me today today denies suicidality homicidality feels medications are helping. For now continue treatment Chief Complaint: Suicide attempt via overdose Review of Systems Except as stated in HPI: all other systems reviewed are Neg Mental Status Examination Appearance: Appropriate Consciousness: Alert Orientation: Person, Place, Date/Time Motor Activity: Normal gait Speech: Unremarkable Language: Adequate Fund of Knowledge: Adequate Attention and Concentration: Adequate Memory: Unremarkable Mood: Good Affect: Appropriate Thought Process & Associations: Logical, Goal directed Thought Content: Appropriate Hallucination Type: None Delusion Type: None Suicidal Ideation: No Suicidal Plan: No Suicidal Intention: No Homicidal Ideation: No Homicidal Plan: No Homicidal Intention: No Insight: Fair Judgment: Adequate (improving) Results Labs Test 12/02/16 06:27 White Blood Count 3.5 TH/MM3 Red Blood Count 2.02 MIL/MM3 Hemoglobin 7.8 GM/DL Hematocrit 22.5 % Mean Corpuscular Volume 111.3 FL Mean Corpuscular Hemoglobin 38.4 PG Mean Corpuscular Hemoglobin Concent 34.5 % Red Cell Distribution Width 16.5 % Platelet Count 45 TH/MM3 Mean Platelet Volume 6.6 FL Neutrophils (%) (Auto) 50.0 % Lymphocytes (%) (Auto) 39.5 % Monocytes (%) (Auto) 7.7 % Eosinophils (%) (Auto) 2.0 % Basophils (%) (Auto) 0.8 % Neutrophils # (Auto) 1.7 TH/MM3 Lymphocytes # (Auto) 1.4 TH/MM3 Monocytes # (Auto) 0.3 TH/MM3 Eosinophils # (Auto) 0.1 TH/MM3 Basophils # (Auto) 0.0 TH/MM3 CBC Comment AUTO DIFF Differential Comment AUTO DIFF CONFIRMED Platelet Estimate LOW Platelet Morphology Comment NORMAL Jayne Cells 1+ Acanthocytes 1+ Prothrombin Time 22.0 SEC Prothromb Time International Ratio 1.9 RATIO Blood Urea Nitrogen 5 MG/DL Creatinine 0.56 MG/DL Random Glucose 84 MG/DL Total Protein 5.0 GM/DL Albumin 2.0 GM/DL Calcium Level 7.5 MG/DL Alkaline Phosphatase 97 U/L Aspartate Amino Transf (AST/SGOT) 85 U/L Alanine Aminotransferase (ALT/SGPT) 26 U/L Total Bilirubin 7.1 MG/DL Sodium Level 141 MEQ/L Potassium Level 3.2 MEQ/L Chloride Level 111 MEQ/L Carbon Dioxide Level 22.3 MEQ/L Anion Gap 8 MEQ/L Estimat Glomerular Filtration Rate 121 ML/MIN Date/Time Source Procedure Growth Status 12/01/16 15:55 Fluid Peritoneal Fluid Gram Stain Pending Received 12/01/16 15:55 Fluid Peritoneal Fluid Body Fluid Culture Pending Received Vitals/IOs Vital Signs Date Time Temp Pulse Resp B/P (MAP) Pulse Ox O2 Delivery O2 Flow Rate FiO2 12/02/16 18:00 98.8 84 16 97/53 (68) 98 Intake and Output 12/02/16 12/02/16 12/03/16 08:00 16:00 00:00 Intake Total 770 ml 600 ml Balance 770 ml 600 ml Assessment & Plan Problem List: (1) Major depressive disorder, recurrent ICD Codes: F33.9 - Major depressive disorder, recurrent, unspecified (2) Alcohol abuse ICD Codes: F10.10 - Alcohol abuse, uncomplicated Status: Acute Assessment & Plan Estimated LOS: days patient's mood is live patient denies suicidality at the present time, compliant medications Justification for Cont. Inpt. At this time patient decompensated placed in a lower level of care Discharge Planning Patient does wish return home when stabilize Request HC Surrog/Guard Advoc?: No Michoacano Conte MD Dec 02, 2016 18:50
[2016-12-02 19:22] VITALS: BP 97/53; PULSE 84; RESP 16; TEMP 98.8; O2SAT 98
[2016-12-02] MEDS: oxyCODONE HCL 10 MG CONTROLLED RELEASE TAB PO PRN (20:15)
--- NOTE | 2016-12-02 20:39 | HHI.FPPN ---
Addendum to progress note ADDENDUM Reason for addendum: Additonal documentation Additional information Patient seen and examined bedside. We were called by nursing because the patient was complaining of a bruise on her right flank that has been hurting since 4 PM. She states the pain is 9 out of 10 and she can feel a lump under the bruise. She does not remember any falls today or yesterday. She did have a paracentesis yesterday, however the puncture kristen as far away from the bruise. He denies any chest pain/shortness of breath. She is requesting pain medication. She denies any blood in her urine. VSS PE: Skin: multiple bruises Abdomen/flank: Large areas of bruising on right flank and right lateral thorax, bruising on right flank is exquisitely tender to palpation A/P: r/o abdominal bleeding - CT without contrast STAT - roxicodone for pain Jodi Ortiz MD R2 Dec 02, 2016 20:39
--- NOTE | 2016-12-02 20:42 | RADRPT ---
EXAM DATE/TIME: 12/02/2016 20:18 [facility] COMPARISON: CT THORAX W/O CONTRAST, December 02, 2016, 20:16. INDICATIONS : Patient had a paracentesis yesterday and now complains of right side pain, bruising and swelling. ORAL CONTRAST: No oral contrast ingested. RADIATION DOSE: 5.1 CTDIvol (mGy) ; Combined studies - Thorax/Abdomen/Pelvis MEDICAL HISTORY : Cirrhosis. Hypertension. SURGICAL HISTORY : Cholecystectomy. section. ENCOUNTER: Initial ACUITY: 1 day PAIN SCALE: 10/10 LOCATION: Right abdomen. TECHNIQUE: Volumetric scanning of the abdomen and pelvis was performed. Using automated exposure control and ad justment of the mA and/or kV according to patient size, radiation dose was kept as low as reasonably achievable to obtain optimal diagnostic quality images. DICOM format image data is available electro nically for review and comparison. FINDINGS: A cirrhotic liver is noted with marked splenomegaly, the spleen measuring 18 cm in AP dimension. Panc reas, adrenals, kidneys are unremarkable. The uterus and adnexa are unremarkable. No evidence of gonzalez l obstruction. There is a large amount of ascites seen within the abdomen and pelvis. There is no leeanna dence of retroperitoneal hematoma or rectus hematoma. The ascites is simple in density without eviden ce for hemoperitoneum. There are atelectatic changes at the lung bases. The osseous structures are in tact. CONCLUSION: 1. Cirrhosis and portal hypertension with large volume ascites, and no evidence for hemorrhage. Ever Montalvo MD on December 02, 2016 at 20:39 Board Certified Radiologist. This report was verified electronically.
--- NOTE | 2016-12-02 20:43 | RADRPT ---
EXAM DATE/TIME: 12/02/2016 20:16 [facility] COMPARISON: CHEST PA & LAT, November 30, 2016, 8:45. CT ABDOMEN & PELVIS W/O CONTRAST, December 02, 2016, 20:18. INDICATIONS : Patient had a paracentesis yesterday and now complains of right side pain, bruising and swelling. RADIATION DOSE: 5.1 CTDIvol (mGy) ; Combined studies - Thorax/Abdomen/Pelvis MEDICAL HISTORY : Cirrhosis. Hypertension. SURGICAL HISTORY : Cholecystectomy. section. ENCOUNTER: Initial ACUITY: 1 day PAIN SCALE: 10/10 LOCATION: Right chest TECHNIQUE: Volumetric scanning of the chest was performed. Using automated exposure control and adjustment of t he mA and/or kV according to patient size, radiation dose was kept as low as reasonably achievable to obtain optimal diagnostic quality images. DICOM format image data is available electronically for r eview and comparison. Follow-up recommendations for detected pulmonary nodules are based at a minimum on nodule size and pa tient risk factors according to Fleischner Society Guidelines. FINDINGS: There are atelectatic changes right greater than left lung base. There is no evidence of pneumonia. C irrhosis and portal hypertension identified with ascites, cirrhotic nodular hepatic contour and splen omegaly. There are no pleural effusions. No adenopathy or aneurysm. Osseous structures are intact. CONCLUSION: 1. Cirrhosis and oral hypertension. 2. Basilar atelectasis. Ever Montalvo MD on December 02, 2016 at 20:41 Board Certified Radiologist. This report was verified electronically.
[2016-12-02] MEDS: TEMAZEPAM 7.5 MG CAP PO SCH (20:52)
[2016-12-03] MEDS: oxyCODONE HCL 10 MG CONTROLLED RELEASE TAB PO PRN ×4 (01:00→23:54)
[2016-12-03 06:06] VITALS: BP 96/51; PULSE 72; RESP 16; TEMP 99; O2SAT 97
[2016-12-03] MEDS: CITALOPRAM HYDROBROMIDE 20 MG TAB PO SCH (08:48)
[2016-12-03] MEDS: SPIRONOLACTONE 50 MG TAB PO SCH (08:48)
[2016-12-03] MEDS: SODIUM CHLORIDE 0.9% FLUSH 10 ML FLUSH IV FLUSH SCH ×2 (08:48→20:24)
[2016-12-03] MEDS: RIFAXIMIN 550 MG TAB PO SCH ×2 (08:48→20:24)
[2016-12-03] MEDS: NICOTINE 21 MG/24 HR PATCH T-DERMAL SCH (09:00)
[2016-12-03] MEDS: REMOVE OLD NICODERM (NICOTINE) PATCH T-DERMAL SCH (09:00)
[2016-12-03 10:30] LABS: AUTOMATED NEUTROPHIL # 1.8 TH/MM3 (1.8-7.7); BASOPHIL % 0.8 % (0.0-2.0); EOSINOPHIL # 0.1 TH/MM3 (0-0.4); EOSINOPHIL % 1.9 % (0.0-4.0); HEMATOCRIT 24.4 % (35.0-46.0); LYMPH % 38.2 % (9.0-44.0); LYMPHOCYTE # 1.4 TH/MM3 (1.0-4.8); MEAN CELL VOLUME 112.8 FL (80.0-100.0); MEAN CORPUSCULAR HEMOGLOBIN 37.6 PG (27.0-34.0); MEAN CORPUSCULAR HGB CONC 33.3 % (32.0-36.0); MONO % 10.1 % (0.0-8.0); PLATELET COUNT 54 TH/MM3 (150-450); RED BLOOD COUNT 2.17 MIL/MM3 (4.00-5.30); RED CELL DISTRIBUTION WIDTH 17.3 % (11.6-17.2); WHITE BLOOD COUNT 3.7 TH/MM3 (4.0-11.0)
--- NOTE | 2016-12-03 10:30 | HHI.PYPN ---
Subjective Remarks Patient seen with nurse and her room chart reviewed, patient compliant medications patient calm pleasant tolerating the medical services treatment and the paracentesis. Denying suicidality and voices today with me for now continue treatment Chief Complaint: Suicide attempt via overdose Review of Systems Except as stated in HPI: all other systems reviewed are Neg Mental Status Examination Appearance: Appropriate Consciousness: Alert Orientation: Person, Place, Date/Time Motor Activity: Normal gait Speech: Unremarkable Language: Adequate Fund of Knowledge: Adequate Attention and Concentration: Adequate Memory: Unremarkable Mood: Good Affect: Appropriate Thought Process & Associations: Logical, Goal directed Thought Content: Appropriate Hallucination Type: None Delusion Type: None Suicidal Ideation: No Suicidal Plan: No Suicidal Intention: No Homicidal Ideation: No Homicidal Plan: No Homicidal Intention: No Insight: Fair Judgment: Adequate (improving) Results Labs Test 12/03/16 10:07 Date/Time Source Procedure Growth Status 12/01/16 15:55 Fluid Peritoneal Fluid Gram Stain - Final Resulted 12/01/16 15:55 Fluid Peritoneal Fluid Body Fluid Culture Pending Resulted Vitals/IOs Vital Signs Date Time Temp Pulse Resp B/P (MAP) Pulse Ox O2 Delivery O2 Flow Rate FiO2 12/03/16 06:06 99.0 72 16 96/51 (66) 97 Intake and Output 12/03/16 12/03/16 12/04/16 08:00 16:00 00:00 Intake Total 240 ml Balance 240 ml Assessment & Plan Problem List: (1) Alcohol abuse ICD Codes: F10.10 - Alcohol abuse, uncomplicated Status: Acute (2) Major depressive disorder, recurrent episode, severe ICD Codes: F33.2 - Major depressive disorder, recurrent severe without psychotic features Assessment & Plan Estimated LOS: days patient's mood is improving she is tolerating the of medical treatment, compliant medications. Justification for Cont. Inpt. Stating patient will decompensate then placed in a lower level of care Discharge Planning Patient plans to return home after discharge Request HC Surrog/Guard Advoc?: No Michoacano Conte MD Dec 03, 2016 10:30
[2016-12-03] MEDS: PENTOXIFYLLINE 400 MG CONTROLLED RELEASE TAB PO SCH (10:32)
[2016-12-03 10:35] LABS: HEMO FLAGS AUTO DIFF
[2016-12-03 10:40] LABS: PROTHROMBIN TIME - PATIENT 22.3 SEC (9.8-11.6)
[2016-12-03 10:52] LABS: ALT (GPT) 28 U/L (10-53); ANION GAP 6 MEQ/L (5-15); AST (GOT) 97 U/L (15-37); BLOOD UREA NITROGEN 4 MG/DL (7-18); CHLORIDE 109 MEQ/L (98-107); GLOMERULAR FILTRATION RATE 90 ML/MIN (>89); POTASSIUM 3.8 MEQ/L (3.5-5.1); SODIUM (NA) 141 MEQ/L (136-145)
[2016-12-03 10:55] LABS: ALKALINE PHOSPHATASE 103 U/L (45-117); TOTAL BILIRUBIN ADULT 7.2 MG/DL (0.2-1.0)
--- NOTE | 2016-12-03 10:55 | HHI.FPPN ---
Subjective Remarks Patient seen and examined this morning. States she is feeling better today. Has had decreased bowel movements she started the Imodium. Abdominal pain has mostly resolved at this point. Notes some pain on her right hip where she notes a bruise this form. She believes it may been bumped at some point causing the bruise to form. No fatigue, lightheadedness, dizziness, syncope, palpitations, nausea, vomiting, fever, chills, change in bladder habits. (Pablo Baez MD R1) Objective Vitals Vital Signs Date Time Temp Pulse Resp B/P (MAP) Pulse Ox O2 Delivery O2 Flow Rate FiO2 12/03/16 06:06 99.0 72 16 96/51 (66) 97 12/02/16 19:22 98.8 84 16 97/53 (68) 98 12/02/16 18:00 98.8 84 16 97/53 (68) 98 I/O 12/02/16 12/02/16 12/02/16 12/03/16 12/03/16 12/03/16 07:00 15:00 23:00 07:00 15:00 23:00 Intake Total 410 ml 360 ml 600 ml 240 ml Balance 410 ml 360 ml 600 ml 240 ml Intake Oral 60 ml 360 ml 600 ml IV Total 350 ml Tube Feeding 240 ml # Voids 1 0 1 (Pablo Baez MD R1) Result Diagram: 12/03/16 1007 12/03/16 1007 Objective Remarks GENERAL: Well nourished female in no apparent distress. She is in good spirits. SKIN: Warm and dry. Spider angiomata noted on the trunk and proximal extremities. Jaundice improving. Old bruises on the right thorax and right lateral shoulder. New bruise along margin of the right iliosacral crest. Small hematoma palpated within bruise. Jaundice. HEAD: Atraumatic. Normocephalic. EYES: Pupils equal and round. + scleral icterus, improving. No injection or drainage. ENT: No nasal bleeding or discharge. Mucous membranes pink and moist. NECK: Trachea midline. No JVD noted. CARDIOVASCULAR: Regular rate and rhythm. No obvious murmurs. 2+ pulses distally. No pedal edema. RESPIRATORY: No accessory muscle use. Clear to auscultation without rales or rhonchi. Breath sounds equal bilaterally. GASTROINTESTINAL: Abdomen soft, non-tender, obese but non-distended s/p paracentesis. Hepatic and splenic margins not palpable. MUSCULOSKELETAL: Extremities without clubbing, cyanosis, or edema. No obvious deformities. NEUROLOGICAL: Awake and alert. Cranial nerves intact. Motor grossly within normal limits. Normal speech. PSYCHIATRIC: Appropriate mood and affect; insight and judgment appear normal . No SI/HI. Procedures Paracentesis 12/01/16, 4L removed (Pablo Baez MD R1) A/P Assessment and Plan 41 -year-old female with past history of cirrhosis, ITP, anxiety, depression with reported suicide attempt with diphenhydramine and acetaminophen 11/26. Completed Acetaminophen treatment 11/27. Abdominal pain, diarrhea improving. Reports paracentesis a couple weeks ago, usually treated once a month. CAP treatment completed due to abnormal CXR findings. On med-psych floor. Family medicine consulted for further management. Discharge Planning Likely 2-3 days discharge. Clinically improved. Will need discharge plan for psychiatric condition and liver disease followup. Discussed with Dr. Rceinos (Pablo Baez MD R1) Attending Attestation Patient seen and examined with Dr. Baez. Case reviewed and discussed Agree with plan of care as discussed with me and documented in the resident note. (Christin Recinos MD) Problem List: (1) Cirrhosis of liver ICD Codes: K74.60 - Unspecified cirrhosis of liver Status: Chronic Plan: Chronic cirrhosis with symptomatic ascites, stable. States she last had paracentesis a few weeks prior to admission. She does not have outpatient PCP or GI physician. She has had paracentesis set up in ED approximately once monthly. Symptoms have improved, jaundice improving. Low suspicion for SBP. -Diagnostic and therapeutic paracentesis performed 12/01, distal fluid study showing no evidence of infection. Culture no growth to date. -Continue to monitor labs for signs of blood loss or infection. Anemia noted, chronic, but H&H did drop 12/02, has improved 12/03. -She is on lactulose, held previously due to significant diarrhea -Continue rifaximin and spironolactone -Observe for signs of SBP (2) Pneumonia ICD Codes: J18.9 - Pneumonia, unspecified organism Status: Resolved Plan: Being treated for possible community-acquired pneumonia prior to acceptance to [facility] psych floor. CXR 11/27 showing bilateral infiltrates Currently asymptomatic Repeat CXR shows no evidence of disease She has completed a 5 day course of azithromycin and Rocephin, 11/27-12/01. DC'd 12/02 (3) Overdose by acetaminophen ICD Codes: T39.1X1A - Poisoning by 4-Aminophenol derivatives, accidental ( unintentional), initial encounter Status: Resolved Plan: Admitted for possible overdose of acetaminophen. Currently status post full acetaminophen antidote treatment (N acetylcysteine) -Avoid hepatotoxic medications -Liver failure diet (4) Major depressive disorder, recurrent ICD Codes: F33.9 - Major depressive disorder, recurrent, unspecified Plan: Med-psych MD managing. Patient currently under voluntary status. Was on Trazodone, discontinued per psychiatry Current treatment: Celexa 20mg Restoril 7.5mg hs Per orders, plan may be for pt to establish with [facility] upon discharge (5) Anemia ICD Codes: D64.9 - Anemia Status: Chronic Plan: Plan as above. It is noted that anemia is chronic but is status post paracentesis and at risk for bleeding given INR, pancytopenia CT did not show signs of hemorrhage. Hemoglobin improved to 10/ Bruising with small hematoma along the right iliac crest, will observe for change. No signs of bleeding on exam or by history (6) FEN Plan: Plan: Fluids * Fluids by mouth Electrolytes * Monitor and correct as needed Nutrition * Regular Prophylaxis * Thrombocytopenia, PPX contraindicated (Pablo Baez MD R1) Problem Qualifiers (1) Overdose by acetaminophen: Qualified Codes: T39.1X2A - Poisoning by 4-aminophenol derivatives, intentional self-harm, initial encounter Pablo Baez MD R1 Dec 03, 2016 10:55 Christin Recinos MD Dec 04, 2016 12:20
[2016-12-03 11:02] LABS: PLATELET ESTIMATE SMEAR LOW (NORMAL); PLATELET MORPHOLOGY NORMAL (NORMAL); SCAN/DIFF AUTO DIFF CONFIRMED
[2016-12-03 11:04] LABS: ACANTHOCYTES 2+ (NORMAL)
[2016-12-03 12:54] LABS: BACTERIA, URINE RARE /hpf; BLOOD, URINE NEG (NEG); COMMENT (UR) CULT NOT INDICATED; CULTURE IF INDICATED CULT NOT INDICATED; GLUCOSE,URINE NEG (NEG); KETONE, URINE NEG (NEG); MUCUS URINE FEW /lpf (OCC); NITRITE,URINE NEG (NEG); SQUAMOUS EPITHELIAL CELL URINE 6 /hpf (0-5); URINE COLOR YELLOW (YELLW/STRAW)
[2016-12-03 18:00] VITALS: BP 107/54; PULSE 84; RESP 16; TEMP 99.4; O2SAT 100
[2016-12-03] MEDS: TEMAZEPAM 7.5 MG CAP PO SCH (20:24)
[2016-12-04] MEDS: oxyCODONE HCL 10 MG CONTROLLED RELEASE TAB PO PRN ×3 (03:58→08:34)
[2016-12-04 04:21] VITALS: BP 103/57; PULSE 92; RESP 16; TEMP 98.6; O2SAT 99
[2016-12-04] MEDS: NICOTINE 21 MG/24 HR PATCH T-DERMAL SCH (07:24)
[2016-12-04] MEDS: REMOVE OLD NICODERM (NICOTINE) PATCH T-DERMAL SCH (07:24)
[2016-12-04] MEDS: CITALOPRAM HYDROBROMIDE 20 MG TAB PO SCH (08:29)
[2016-12-04] MEDS: RIFAXIMIN 550 MG TAB PO SCH (08:30)
[2016-12-04] MEDS: SODIUM CHLORIDE 0.9% FLUSH 10 ML FLUSH IV FLUSH SCH (08:30)
[2016-12-04] MEDS: PENTOXIFYLLINE 400 MG CONTROLLED RELEASE TAB PO SCH (08:30)
[2016-12-04] MEDS: SPIRONOLACTONE 50 MG TAB PO SCH (08:30)
[2016-12-04] MEDS: LACTULOSE SYRUP 20 GM/30 ML CUP PO SCH (08:30)
--- NOTE | 2016-12-04 08:39 | HHI.PYPN ---
Subjective Chief Complaint: Suicide attempt via overdose Mental Status Examination Appearance: Appropriate Consciousness: Alert Orientation: Person, Place, Date/Time Motor Activity: Normal gait Speech: Unremarkable Language: Adequate Fund of Knowledge: Adequate Attention and Concentration: Adequate Memory: Unremarkable Mood: Good Affect: Appropriate Thought Process & Associations: Logical, Goal directed Thought Content: Appropriate Hallucination Type: None Delusion Type: None Suicidal Ideation: No Suicidal Plan: No Suicidal Intention: No Homicidal Ideation: No Homicidal Plan: No Homicidal Intention: No Insight: Fair Judgment: Adequate (improving) Results Labs Test 12/03/16 10:07 12/03/16 12:15 White Blood Count 3.7 TH/MM3 Red Blood Count 2.17 MIL/MM3 Hemoglobin 8.1 GM/DL Hematocrit 24.4 % Mean Corpuscular Volume 112.8 FL Mean Corpuscular Hemoglobin 37.6 PG Mean Corpuscular Hemoglobin Concent 33.3 % Red Cell Distribution Width 17.3 % Platelet Count 54 TH/MM3 Mean Platelet Volume 6.6 FL Neutrophils (%) (Auto) 49.0 % Lymphocytes (%) (Auto) 38.2 % Monocytes (%) (Auto) 10.1 % Eosinophils (%) (Auto) 1.9 % Basophils (%) (Auto) 0.8 % Neutrophils # (Auto) 1.8 TH/MM3 Lymphocytes # (Auto) 1.4 TH/MM3 Monocytes # (Auto) 0.4 TH/MM3 Eosinophils # (Auto) 0.1 TH/MM3 Basophils # (Auto) 0.0 TH/MM3 CBC Comment AUTO DIFF Differential Comment AUTO DIFF CONFIRMED Platelet Estimate LOW Platelet Morphology Comment NORMAL [place] Cells Acanthocytes 2+ Prothrombin Time 22.3 SEC Prothromb Time International Ratio 2.0 RATIO Blood Urea Nitrogen 4 MG/DL Creatinine 0.72 MG/DL Random Glucose 120 MG/DL Total Protein 5.3 GM/DL Albumin 2.2 GM/DL Calcium Level 8.1 MG/DL Alkaline Phosphatase 103 U/L Aspartate Amino Transf (AST/SGOT) 97 U/L Alanine Aminotransferase (ALT/SGPT) 28 U/L Total Bilirubin 7.2 MG/DL Sodium Level 141 MEQ/L Potassium Level 3.8 MEQ/L Chloride Level 109 MEQ/L Carbon Dioxide Level 26.0 MEQ/L Anion Gap 6 MEQ/L Estimat Glomerular Filtration Rate 90 ML/MIN Urine Color YELLOW Urine Turbidity HAZY Urine pH 6.0 Urine Specific [place] 1.010 Urine Protein NEG mg/dL Urine Glucose (UA) NEG mg/dL Urine Ketones NEG mg/dL Urine Occult Blood NEG Urine Nitrite NEG Urine Bilirubin SMALL Urine Urobilinogen LESS THAN 2.0 MG/DL Urine Leukocyte Esterase SMALL Urine RBC 1 /hpf Urine WBC 3 /hpf Urine Squamous Epithelial Cells 6 /hpf Urine Bacteria RARE /hpf Urine Mucus FEW /lpf Microscopic Urinalysis Comment CULT NOT INDICATED Date/Time Source Procedure Growth Status 12/01/16 15:55 Fluid Peritoneal Fluid Gram Stain - Final Resulted 12/01/16 15:55 Fluid Peritoneal Fluid Body Fluid Culture - Preliminary NO GROWTH IN 24 HOURS. Resulted Vitals/IOs Vital Signs Date Time Temp Pulse Resp B/P (MAP) Pulse Ox O2 Delivery O2 Flow Rate FiO2 12/04/16 04:21 98.6 92 16 103/57 (72) 99 Intake and Output 12/04/16 12/04/16 12/05/16 08:00 16:00 00:00 Intake Total 120 ml Balance 120 ml Assessment & Plan Problem List: (1) Alcohol abuse ICD Codes: F10.10 - Alcohol abuse, uncomplicated Status: Acute (2) Major depressive disorder, recurrent episode, severe ICD Codes: F33.2 - Major depressive disorder, recurrent severe without psychotic features Assessment & Plan Estimated LOS: days Request HC Surrog/Guard Advoc?: No Gregorio Sauer MD Dec 04, 2016 08:39
[2016-12-04] MEDS ORDERED: ALDA50TA2 PO (08:51)
[2016-12-04] MEDS ORDERED: Lactulose Liq PO (08:51)
[2016-12-04] MEDS ORDERED: XIFA550T4 PO (08:51)
[2016-12-04] MEDS ORDERED: CELE20TA PO (08:51)
[2016-12-04] MEDS ORDERED: TEMA7.5C9 PO (08:51)
[2016-12-04] MEDS ORDERED: PENT400T PO (08:51)
[2016-12-04] MEDS ORDERED: LACT10SO PO (08:53)
--- NOTE | 2016-12-04 08:55 | HHI.FPPN ---
Subjective Remarks Patient seen and examined today. She states she is currently feeling much better. No complaints of abdominal time of pain today, however notes pain in the bruises on her right side. No nausea, vomiting. States her bowel movements have returned to normal. She had one normal bowel movement yesterday. No new bruises noted. Does not believe the bruises or bumps underneath are getting bigger. No chest pain, shortness of breath. Objective Vitals Vital Signs Date Time Temp Pulse Resp B/P (MAP) Pulse Ox O2 Delivery O2 Flow Rate FiO2 12/04/16 04:21 98.6 92 16 103/57 (72) 99 12/03/16 18:00 99.4 84 16 107/54 (71) 100 I/O 12/03/16 12/03/16 12/03/16 12/04/16 12/04/16 12/04/16 07:00 15:00 23:00 07:00 15:00 23:00 Intake Total 1080 ml 720 ml 120 ml Balance 1080 ml 720 ml 120 ml Intake Oral 840 ml 720 ml 120 ml Tube Feeding 240 ml # Voids 1 2 Result Diagram: 12/03/16 1007 12/03/16 1007 Objective Remarks GENERAL: Well nourished female in no apparent distress. She is in good spirits today. SKIN: Warm and dry. Spider angiomata noted on the trunk and proximal extremities. Jaundice improving. Old bruises on the right thorax and right lateral shoulder. New bruise along margin of the right iliosacral crest. Small hematoma palpated within bruise, unchanged in size. Jaundice. HEAD: Atraumatic. Normocephalic. EYES: Pupils equal and round. + scleral icterus, improving. No injection or drainage. ENT: No nasal bleeding or discharge. Mucous membranes pink and moist. NECK: Trachea midline. No JVD noted. CARDIOVASCULAR: Regular rate and rhythm. No obvious murmurs. 2+ pulses distally. No pedal edema. RESPIRATORY: No accessory muscle use. Clear to auscultation without rales or rhonchi. Breath sounds equal bilaterally. GASTROINTESTINAL: Abdomen soft, non-tender, obese but non-distended s/p paracentesis. Hepatic and splenic margins not palpable. MUSCULOSKELETAL: Extremities without clubbing, cyanosis, or edema. No obvious deformities. NEUROLOGICAL: Awake and alert. Cranial nerves intact. Motor grossly within normal limits. Normal speech. PSYCHIATRIC: Appropriate mood and affect; insight and judgment appear normal . No SI/HI. Procedures Paracentesis 12/01/16, 4L removed A/P Assessment and Plan 41 -year-old female with past history of cirrhosis, ITP, anxiety, depression with reported suicide attempt with diphenhydramine and acetaminophen 11/26. Completed Acetaminophen treatment 11/27. Abdominal pain, diarrhea improving. Reports paracentesis a couple weeks ago, usually treated once a month. CAP treatment completed due to abnormal CXR findings. Paracentesis in hospital not suggestive of SBP. New bruise along right iliac crest, small unchanging hematoma within bruise. No hemorrhage seen on CT. Medicine team will be signing off at this time, currently stable from a medical standpoint. Please reconsult as needed, thank you. Discharge Planning Discharge pending clearance from psychiatry Discussed with Dr. Hobson Problem List: (1) Cirrhosis of liver ICD Codes: K74.60 - Unspecified cirrhosis of liver Status: Chronic Plan: Chronic cirrhosis with symptomatic ascites, stable. States she last had paracentesis a few weeks prior to admission. She does not have outpatient PCP or GI physician. She has had paracentesis set up in ED approximately once monthly. Symptoms have improved, jaundice improving. Low suspicion for SBP. -Diagnostic and therapeutic paracentesis performed 12/01, distal fluid study showing no evidence of infection. Culture no growth to date. -Continue to monitor labs for signs of blood loss or infection. Anemia noted, chronic, but H&H did drop 12/02, uptrending. -She is on lactulose, restarted and with normal bowel movements at this time -Continue rifaximin and spironolactone -Observe for signs of SBP, none currently (2) Pneumonia ICD Codes: J18.9 - Pneumonia, unspecified organism Status: Resolved Plan: Being treated for possible community-acquired pneumonia prior to acceptance to med psych floor. CXR 11/27 showing bilateral infiltrates, Repeat CXR shows no evidence of disease. Currently asymptomatic She has completed a 5 day course of azithromycin and Rocephin, 11/27-12/01. DC'd 12/02. Resolved (3) Overdose by acetaminophen ICD Codes: T39.1X1A - Poisoning by 4-Aminophenol derivatives, accidental ( unintentional), initial encounter Status: Resolved Plan: Admitted for possible overdose of acetaminophen. Currently status post full acetaminophen antidote treatment (N acetylcysteine) -Avoid hepatotoxic medications -Liver failure diet (4) Major depressive disorder, recurrent ICD Codes: F33.9 - Major depressive disorder, recurrent, unspecified Plan: Med-psych MD managing. Patient currently under voluntary status. Was on Trazodone, discontinued per psychiatry Current treatment: Celexa 20mg Restoril 7.5mg hs Trental 550mg Per orders, plan may be for pt to establish with [facility] upon discharge (5) Anemia ICD Codes: D64.9 - Anemia Status: Chronic Plan: Plan as above. It is noted that anemia is chronic but is status post paracentesis and at risk for bleeding given INR, pancytopenia CT did not show signs of hemorrhage. Hemoglobin improved Bruising with small hematoma along the right iliac crest, no change in size or shape. No signs of bleeding on exam or by history (6) FEN Plan: Plan: Fluids * Fluids by mouth Electrolytes * Monitor and correct as needed Nutrition * Regular Prophylaxis * Thrombocytopenia, PPX contraindicated Problem Qualifiers (1) Overdose by acetaminophen: Qualified Codes: T39.1X2A - Poisoning by 4-aminophenol derivatives, intentional self-harm, initial encounter Pablo Baez MD R1 Dec 04, 2016 08:55
[2016-12-04 09:54] LABS: HEMATOCRIT 24.8 % (35.0-46.0); MEAN CELL VOLUME 111.5 FL (80.0-100.0); MEAN CORPUSCULAR HEMOGLOBIN 38.2 PG (27.0-34.0); MEAN CORPUSCULAR HGB CONC 34.3 % (32.0-36.0); PLATELET COUNT 57 TH/MM3 (150-450); RED BLOOD COUNT 2.23 MIL/MM3 (4.00-5.30); RED CELL DISTRIBUTION WIDTH 16.6 % (11.6-17.2); WHITE BLOOD COUNT 3.8 TH/MM3 (4.0-11.0)
[2016-12-04 10:08] LABS: REVIEW FLAG FINAL
[2016-12-04 10:13] LABS: BICARBONATE 28.8 MEQ/L (21.0-32.0); POTASSIUM 3.7 MEQ/L (3.5-5.1)
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
== END 2016-12-04 12:25 | disposition home or self-care (01) | DRG 885 ==
LOC: H4EA 16:00
PROVIDERS: ADMIT Student in an Organized Health Care Education/Training Program; ATTEND Student in an Organized Health Care Education/Training Program
PROC: 0W9G3ZZ Drainage of Peritoneal Cavity, Percutaneous Approach (ICD-10-PCS; principal; 2016-12-01)
DX: F33.2 Major depressive disorder, recurrent severe without psychotic features (principal); D69.3 Immune thrombocytopenic purpura; J18.9 Pneumonia, unspecified organism; E87.2 Acidosis; R18.8 Other ascites; K74.60 Unspecified cirrhosis of liver; F10.10 Alcohol abuse, uncomplicated; E87.6 Hypokalemia; D64.9 Anemia, unspecified; S30.1XXA Contusion of abdominal wall, initial encounter; X58.XXXA Exposure to other specified factors, initial encounter; Y92.239 Unspecified place in hospital as the place of occurrence of the external cause
CPT/HCPCS: 36430; 49083; 71020; 71250; 74176; 80048; 80053; 81001; 82042; 82140; 82150; 82945; 83615; 84155; 84157; 85025; 85027; 85610; 86927; 87070; 87205; 87493; 89051; 94150; C1729; J0456; J0696; J7050; P9017